=== PATIENT | female | born 1970 | race Caucasian/White ===

== ENCOUNTER 2019-12-20 09:05 | Emergency (ER) | payer SELFPAY ==
[2019-12-20 09:06] VITALS: BP 126/106; PULSE 129; RESP 28; TEMP 36.6; O2SAT 99; BMI 21.5
--- NOTE | 2019-12-20 09:24 | RAD_ITS ---
STUDY: X-RAY CHEST REASON FOR EXAM: Female, 49 years old. Cough, fever, SOB -- emphysema TECHNIQUE: Single AP portable view of the chest. COMPARISON: Comparison is made with prior study dated September 04, 2013. FINDINGS: EKG electrodes are seen. The lungs are clear and expanded. There is no demonstrated pleural abnormality. Normal size heart. Normal mediastinum and kavon. Normal visualized pulmonary arteries. Normal visualized aortic arch and descending thoracic aorta. Normal visualized thoracic spine. Normal visualized ribs, clavicles, and shoulders. There is no demonstrated abnormality of the visualized soft tissue structures of the upper abdomen. RAD/Chest 1 View (Portable) IMPRESSION: Normal x-ray examination of the chest. Electronically Signed: Hao Gee, at 10:30 EDT , Service support ,
--- NOTE | 2019-12-20 09:24 | EKG12_ITS ---
Test Reason : TACHY Blood Pressure : / mmHG Vent. Rate : 093 BPM Atrial Rate : 093 BPM P-R Int : 142 ms QRS Dur : 084 ms QT Int : 348 ms P-R-T Axes : 079 030 062 degrees QTc Int : 432 ms Normal sinus rhythm Normal ECG Confirmed by BEVERLY JONES, TARIK ([id number]), clinical editor TAZ LI ([id number] on 12/21/2019 9:46:09 AM Referred By: ILDEFONSO Confirmed By:TARIK PAUL MD
--- NOTE | 2019-12-20 09:30 | ED.DCSUM_ITS ---
History of Present Illness Chief Complaint: Shortness of Breath Informant: Patient Onset: Yesterday Timing: Continuous Narrative: Patient presents the emergency department with cough and shortness of breath. Patient works at [employer]. Daughter has tested positive for SARS-CoV-2. Patient states that yesterday she had a near syncopal event getting out of the bathtub. She developed some tightness across her lower ante rior chest and into her shoulders. Today she feels very short of breath has a dry cough. She denies any fever. She denies any palpitations. She denies any chest pain noting that is more of a tightness sensation. No vomiting or diarrhea. No rashes. No significant rhinorrhea but has had some sinus pressure. No myalgias or headache. No DVT PE risk factors. Patient recently has started to quit smoking and started Wellbutrin. She developed some lower chest tightness which she attributed to the Wellbutrin and after speaking with her doctor has been taking Wellbutrin every other day. Patient does note a history of anxiety but states this feels very different. Past Medical History - Allergies and Home Meds Allergies/Adverse Reactions: Allergies No Known Allergies Allergy (Verified 12/20/19 09:10) Primary Care Physician: Yolanda Levine DO [NON CLINICAL AFFILIATE] - As Needed Smoking Status: Current every day smoker Review of Systems General: Denies: Chills, Fever, Sweats Eyes: Denies: Visual changes - bilaterally, Diplopia ENT: Denies: Rhinorrhea, Sore throat Cardiovascular: Reports: Chest pain. Denies: Palpitations, Heart racing Respiratory: Reports: Dyspnea, Cough. Denies: Sputum, Dyspnea on exertion Gastrointestinal: Reports: Diarrhea. Denies: Abdominal pain, Nausea, Vomiting, Melena, Hematochezia Genitourinary: Denies: Dysuria, Hematuria, Frequency Musculoskeletal: Denies: Back pain, Extremity Pain Skin: Denies: Rash, Wounds Neurological: Reports: Headache. Denies: Weakness, Numbness Psych: Reports: Anxiety Physical Exam Vital Signs/Narrative: Vital Signs Temp Pulse Resp BP Pulse Ox 12/20/19 09:06 98 F 129 H 28 H 126/106 H 99 Inital Vital Signs reviewed: Yes General: Well nourished, Well developed, No Acute Distress Head: Normocephalic, Atraumatic Eyes: Perrl, EOMI ENT: Moist mucous membranes, No rhinorrhea Neck: Supple, Nontender Cardiovascular: Regular rate, Regular rhythm, No murmurs, Tachycardia Respiratory: No distress, CTA bilaterally, Chest nontender Abdomen: Soft, Nontender, Nondistended, Normal bowel sounds Back: Nontender, Normal Inspection Extremities: Nontender, No edema Skin: Normal color, No rash Neurological: Alert, Oriented x3, Cranial nerves II-XII grossly intact, Normal Strength, Normal Sensation Psychological: Normal affect, Normal Mood Diagnostic/Tx/Re-eval - EKG Initial EKG Interpretation: Sinus Rhythm - EKG shows a normal sinus rhythm at a rate of 93 without ectopy or concerning features of ACS. Baseline is altered in some leads due to the patient's body movement - Medical Decision Making Sick labs were essentially normal. Chest x-ray is negative. EKG is a sinus rhythm without concerning features of ACS. Patient is refusing a CT scan of her chest to rule out pulmonary embolism. She is doing so out of a cost issue. While I disagree with this choice she does have the capacity to make this decision. Patient is aware of the risk of going home and can tell me them back. She is feeling better I am going to provide her with a prescription for a spacer to use with her albuterol MDI. A SARS COVID-19 test was ordered and patient was swabbed. She was advised this will it may take several days to get back. In the meantime she should self quarantine. Use her inhaler. If she is worsening she may certainly return. Nursing went in to remove her IV and discharge her and the patient is now requesting her CAT scan. This was performed was negative for pulmonary embolism infiltrates effusions or dissection. Patient will be discharged home with the aforementioned plan. ED Disposition - Plan for ED Patient: Disposition: Against Medical Advice Diagnosis: Dyspnea, Chest pain Bad tableReferrals: Yolanda Levine, [NON CLINICAL AFFILIATE] - As Needed
[2019-12-20 09:43] VITALS: BP 125/80; PULSE 102; RESP 14; TEMP 36.7; O2SAT 99
[2019-12-20 09:50] LABS: Absolute Neutrophil Count 3.1 X10^3/uL (2.0-7.7); Basophil# 0.07 X10^3/uL; Basophil% 1.2 % (0-1); Eosinophils% 1.7 % (0-5); Hematocrit 40.5 % (37-47); Hemoglobin 13.9 g/dL (12.0-15.0); Lymphocyte % 36.3 % (19-41); Mean Corp Hgb Conc 34.3 g/dL (32-36); Mean Corpuscular Hgb 29.2 pg (27.0-32.0); Mean Corpuscular Volume 85.1 fL (81-99); Mean Platelet Vol. 9.2 fl (6.2-12.0); Monocyte% 6.9 % (0-10); NRBC Flagged by Analyzer 0 % (0-5); Neutrophil % 53.7 % (47-70); Platelet Count 314 K/mm3 (150-450); RBC Distribution Width CV 12.3 % (11.6-14.6); RBC Distribution Width SD 38.4 fl (35.1-43.9); Red Blood Count 4.76 M/mm3 (4.2-5.4); White Blood Count 5.8 K/mm3 (4.4-11.0)
[2019-12-20 10:06] LABS: ALB/GLOB Ratio 1.3 RATIO (0.9-2.4); AST(SGOT) 14 U/L (15-37); Alanine Aminotransfer ALT/SGPT 19 U/L (13-56); Albumin, Serum 4.4 g/dL (3.2-5.0); Alkaline Phosphatase 88 U/L (45-117); Anion Gap 6 (5-15); BUN 9 mg/dL (7-18); BUN/Creat Ratio 11.4 RATIO (10-20); Calcium,Total 9.7 mg/dL (8.5-10.1); Chloride 106 mmol/L (98-107); Creatinine, Serum 0.79 mg/dL (0.55-1.02); EST Glomerular Filtration Rate 81 mL/min (>60); Est Glom Filt Rate - Afr Amer 98 mL/min (>60); Estimated Creatinine Clearance 63.57 ml/min; Globulin 3.5 g/dL (2.2-4.2); Glucose 98 mg/dL (74-106); Potassium 3.1 mmol/L (3.5-5.1); Protein, Total 7.9 g/dL (6.4-8.2); Sodium Level 141 mmol/L (136-145)
[2019-12-20 10:11] VITALS: BP 119/80; PULSE 91; RESP 18; O2SAT 100
--- NOTE | 2019-12-20 11:16 | CT_ITS ---
STUDY: CTA CHEST REASON FOR EXAM: Female, 49 years old. FEVER, COUGH, SOB, DAUGHTER COVID + RADIATION DOSAGE (If Supplied By Facility): CTDIvol = ( 41.45 ) mGy, DLP = ( 115.49 ) mGycm TECHNIQUE: The examination was performed with the intravenous administration of IV 100mL Isovue-370. Post-processing of the angiographic images was performed, with multiplanar reformation and 3D reconstruction. Individualized dose optimization techniques were used for this CT. COMPARISON: None. FINDINGS: Normal enhancement of the main pulmonary artery and right and left pulmonary arteries. Normal enhancement of the bilateral peripheral pulmonary arteries. There is no demonstrated pulmonary embolism. Normal thoracic aorta and visualized great vessels. There is no demonstrated aortic dissection. Normal heart and pericardium. Normal mediastinum. Normal hilar regions. Normal visualized trachea and bronchi. The lungs are well expanded. Normal pulmonary parenchyma. Normal pleura. Normal chest wall structures. There are degenerative changes of thoracic spine. Normal visualized upper abdomen. CT/CTA Chest W/WO Contrast IMPRESSION: Normal CTA chest examination, without a demonstrated pulmonary embolism or arterial dissection. Electronically Signed: Hao Gee, at 12:14 EDT , Service support ,
[2019-12-20 11:47] VITALS: BP 134/77; PULSE 90; RESP 22; O2SAT 99
== END 2019-12-20 12:50 | disposition left against medical advice (07) ==
PROVIDERS: Emergency Provider Emergency Medicine; PCP Family Medicine
DX: R06.02 Shortness of breath (principal); R07.89 Other chest pain; F17.200 Nicotine dependence, unspecified, uncomplicated; Z53.29 Procedure and treatment not carried out because of patient's decision for other reasons
CPT/HCPCS: 71045; 71275; 80053; 84484; 85025; 87635; 93005; 99284; Q9967; U0004

== ENCOUNTER 2025-01-04 04:33 | Emergency (ER) | payer MEDICAID, SELFPAY ==
[2025-01-04 04:35] VITALS: BP 141/75; PULSE 96; RESP 18; TEMP 36.6; O2SAT 100; BMI 25.9
[2025-01-04 04:36] VITALS: BP 141/75; PULSE 91; RESP 18; TEMP 36.5; O2SAT 100
[2025-01-04] MEDS: 0.9% Normal Saline (1000mL) 1,000 ML 999 ML IV (04:54)
[2025-01-04 05:06] LABS: Absolute Lymphocyte Count 1.53 X10^3/uL (0.83-4.51); Absolute Neutrophil Count 5.1 X10^3/uL (2.0-7.7); Basophil# 0.09 X10^3/uL; Basophil% 1.2 % (0-1); Eosinophil# 0.15 X10^3/uL; Hematocrit 36.8 % (37-47); Hemoglobin 12.7 g/dL (12.0-15.0); Lymphocyte # 1.53 X10^3/ul (0.83-4.51); Lymphocyte % 20.6 % (19-41); Mean Corp Hgb Conc 34.5 g/dL (32-36); Mean Corpuscular Hgb 28.7 pg (27.0-32.0); Mean Corpuscular Volume 83.3 fL (81-99); Monocyte# 0.58 X10^3/uL; Monocyte% 7.8 % (0-10); NRBC Flagged by Analyzer 0 % (0-5); Neutrophil # 5.05 X10^3/uL (2.7-7.7); Neutrophil % 68.3 % (47-70); Platelet Count 331 K/mm3 (150-450); RBC Distribution Width CV 13.3 % (11.6-14.6); Red Blood Count 4.42 M/mm3 (4.2-5.4); White Blood Count 7.4 K/mm3 (4.4-11.0)
[2025-01-04 05:18] LABS: Mucous, Urine 0 SEEN /hpf (<or=2+); Red Blood Cells-Urine 0 SEEN /hpf (0-5)
[2025-01-04 05:20] LABS: Color, Urine Straw (Yellow); Glucose, Dipstick Normal (Normal); Ketone-Dipstick Negative (Negative); Leukocyte Esterase-Dipstick Negative /ul (Negative); Nitrite-Dipstick Negative (Negative); Occult Blood-Urine Negative /ul (Negative); Protein-Dipstick 15 mg/dl (Negative); Urine Bilirubin Dipstick Negative (Negative); Urine Clarity Clear (Clear); Urine Urobilinogen Normal (Normal)
[2025-01-04 05:21] LABS: Anion Gap 11 (5-15); BUN 9 mg/dL (4-19); BUN/Creat Ratio 11.8 RATIO (10-20); Calcium,Total 9.2 mg/dL (7.6-11.0); Carbon Dioxide 23.6 mmol/L (21.0-32.0); Chloride 105 mmol/L (98-108); Creatinine, Serum 0.75 mg/dL (0.70-1.20); EST Glomerular Filtration Rate 93 (>60); Estimated Creatinine Clearance 70.81 ml/min (50-250); Glucose 108 mg/dL (70-99); Magnesium 1.8 mg/dL (1.5-2.2); Potassium 3.3 mmol/L (3.3-5.1); Sodium Level 140 mmol/L (133-145)
[2025-01-04 05:30] VITALS: BP 115/68; PULSE 79; RESP 18; TEMP 36.9; O2SAT 98
[2025-01-04] MEDS: Ketorolac 30 MG/ML Syringe IV (05:56)
[2025-01-04 06:05] LABS: Bacteria 1+ /hpf (None Seen); Squamous Epithelial Cells - UA 0-5 SEEN /hpf (5-10); White Blood Cells 0-5 SEEN /hpf (0-5)
--- NOTE | 2025-01-04 06:43 | EX.ED.DYSGE1 ---
HPI History of Present Illness Chief Complaint: Diarrhea Informant: patient Narrative Narrative: Patient is a 54-year-old female who reports a past medical history of appendicitis leading to sepsis and requiring prolonged IV antibiotics in October of this year. She states following that she developed diffuse diarrhea and was diagnosed with C. difficile. She states she took her antibiotic and finished it roughly 2 to 3 weeks ago. She states her stool has been loose but has been overall improving. She denies any fevers or chills or known sick contact. She states that there is been no recent travel outside the country and she denies any livestock exposure. She reports that she went to bed normally and then awoke around 2 in the morning with abdominal cramping and had 3 bouts of watery diarrhea. She states she is concerned for a repeat C. difficile infection and therefore comes in for evaluation [facility] Home Medications ?Medication ?Instructions ?Recorded ?Last Taken ?Type inhalational spacing device ##1 12/20/19 Unknown Rx duloxetine 20 mg capsule,delayed 20 mg PO DAILY 01/04/25 Unknown History release (Cymbalta) vancomycin 125 mg capsule 125 mg PO Q6H 10 days #40 caps 01/04/25 Unknown Rx Allergy/AdvReac Type Severity Reaction Status Date / Time No Known Allergies Allergy Verified 01/04/25 04:34 Surgical History (Updated 01/04/25 @ 04:38 by Marci Waldrop) Hx of appendectomy Social History (Updated 06/15/20 @ 13:36 by Eduardo COSME, PA) Smoking Status: Current every day smoker tobacco type: cigarettes ROS ROS ED Constitutional Constitutional ED: Denies chills or fever(s) ENT ENT ED: Denies sore throat Cardiovascular Cardiovascular: Denies chest pain Respiratory/Chest Respiratory/Chest: Denies cough or dyspnea Gastrointestinal Gastrointestinal: Reports abdominal pain and diarrhea; Denies nausea or vomiting Genitourinary Genitourinary ED: Reports dysuria Musculoskeletal Musculoskeletal: Denies back pain or myalgias Integumentary Denies rash Neurologic Neurologic: Denies headache(s) Hematologic/Lymphatic Hematologic/Lymphatic: Denies easy bleeding or easy bruising EXAM Physical Exam Const Vital Signs: 01/04/25 04:35 01/04/25 04:36 01/04/25 05:30 Temperature 97.9 F 97.7 F L 98.5 F Temperature Source Oral Oral Oral Pulse Rate 96 91 79 Respiratory Rate 18 18 18 Blood Pressure 141/75 H 141/75 H 115/68 Blood Pressure Mean 97 97 83 Pulse Ox 100 100 98 Oxygen Delivery Method Room Air Room Air Room Air Positive well nourished and well developed General Appearance ED: well developed; Negative for pallor HEENT Reports moist mucous membranes HEENT Narrative: No tongue or lip swelling no oral lesions no airway edema or compromise No secondary findings in the posterior pharynx to suggest infection Eyes PERRL and EOMs intact bilaterally General Eye ED: Negative for scleral icterus Neck supple Resp normal respiratory effort and clear to auscultation bilaterally Cardio regular rate and regular rhythm GI non-distended and no masses GI Narrative: Abdomen is soft and nondistended. There is mild diffuse pain with palpation along the lower abdomen. Bowel sounds are hyperactive. There is no voluntary guarding or rigidity or pulsatile mass. No peritoneal signs Auscultation: hyperactive bowel sounds Palpation: soft Back/Spine no CVA tenderness Extremity normal to inspection Neuro oriented x3, CN's II-XII intact bilaterally and no sensory deficits noted Sensorium / Orientation: alert Motor Exam: strength 5/5 throughout Psych mental status grossly normal Skin no rashes or lesions noted and skin turgor normal General Skin Exam: Negative for jaundice or pallor MDM MDM MDM Narrative Medical decision making narrative: Patient arrived to the ER with stable vitals and a soft nonsurgical abdomen. She reported sudden onset of watery diarrhea beginning around 2 in the morning. She does not have any recent risk factors such as travel outside the country recent hospitalization or livestock exposure to suggest infectious diarrhea such as Salmonella E. coli or Shigella. With her recent history of C. difficile there is concern for repeat infection however and as she reports mild dysuria there is potential for UTI. Patient's white count is normal her neutrophil count is normal going against systemic infection. There are no signs of acute kidney injury or clinically significant electrolyte abnormality. Urine sample shows +1 bacteria but no white cells and is nitrite negative and therefore this does not correlate with an infectious process. A stool sample was obtained in the ER and at this time we will wait for the results of the C. difficile testing to decide if there is need for repeat antibiotics or if she is otherwise safe for discharge with just outpatient follow-up. The C. difficile study was positive and secondary to this she will be placed on another round of oral antibiotics. However as she does not have signs of sepsis or severe dehydration or electrolyte abnormality or acute kidney injury she does not warrant admission and is otherwise safe for discharge. History & Record Review Discussion w/independent historian: Patient Lab Data Attestation: I reviewed the patient's lab results. Labs: Laboratory Results - last 24 hr 01/04/25 01/04/25 04:58 05:11 WBC 7.4 RBC 4.42 Hgb 12.7 Hct 36.8 L MCV 83.3 MCH 28.7 MCHC 34.5 RDW Std Deviation 41.0 RDW Coeff of Ben 13.3 Plt Count 331 MPV 9.0 Immature Gran % (Auto) 0.100 Neut % (Auto) 68.3 Lymph % (Auto) 20.6 [place] % (Auto) 7.8 Eos % (Auto) 2.0 Baso % (Auto) 1.2 H Absolute Neuts (auto) 5.1 Absolute Lymphs (auto) 1.53 Nucleated RBC % 0 Sodium 140 Potassium 3.3 Chloride 105 Carbon Dioxide 23.6 Anion Gap 11 BUN 9 Creatinine 0.75 Estim Creat Clear Calc 70.81 Est GFR (MDRD) Non-Af 93 BUN/Creatinine Ratio 11.8 Glucose 108 H Calcium 9.2 Magnesium 1.8 Urine Color Straw Urine Clarity Clear Urine pH 6.0 Ur Specific Maud 1.010 Urine Protein 15 H Urine Glucose (UA) Normal Urine Ketones Negative Urine Occult Blood Negative Urine Nitrite Negative Urine Bilirubin Negative Urine Urobilinogen Normal Ur Leukocyte Esterase Negative Urine RBC 0 SEEN Urine WBC 0-5 SEEN Ur Squamous Epith Cells 0-5 SEEN Urine Bacteria 1+ Urine Mucus 0 SEEN Discharge Plan Triage Chief Complaint: Diarrhea ED Provider: Shaheed Cortes Dx/Rx/DC Orders Clinical Impression: Clostridium difficile diarrhea Instructions: C Diff Infect Prescriptions: New vancomycin 125 mg capsule 125 mg PO Q6H 10 Days Qty: 40 0RF No Action (DME) inhalational spacing device 1 EACH spacer 1 ea MC Q4H Qty: 1 0RF Rx Instructions: Use with albuterol MDI duloxetine [Cymbalta] 20 mg capsule,delayed release(DR/EC) 20 mg PO DAILY Stand Alone Forms: ED Work / School Excuse Primary Care Provider: Teresa Brown Referrals: Teresa Brown, BULK SEALER OPERATOR-C [Primary Care Provider] - Print Language: Honduran Disposition Disposition: Home, Self Care
[2025-01-04 07:14] VITALS: BP 122/78; PULSE 69; RESP 16; TEMP 36.7; O2SAT 99
[2025-01-04] MEDS: Vancomycin 125 MG/5 ML Susp PO.SYRINGE PO (07:34)
== END 2025-01-04 07:35 | disposition home or self-care (01) ==
PROVIDERS: Emergency Provider Emergency Medicine; PCP Nurse Practitioner Family; Visit Provider Emergency Medicine
DX: A04.72 Enterocolitis due to Clostridium difficile, not specified as recurrent (principal); F17.210 Nicotine dependence, cigarettes, uncomplicated; Z79.899 Other long term (current) drug therapy
CPT/HCPCS: 80048; 81001; 83630; 83735; 85025; 87177; 87209; 87493; 87506; 96361; 96374; 99283; A4216

== ENCOUNTER 2025-01-15 08:32 | Emergency (ER) | payer MEDICAID, SELFPAY ==
[2025-01-15 08:32] VITALS: BP 140/75; PULSE 108; RESP 16; TEMP 37; O2SAT 99; BMI 24.8
--- NOTE | 2025-01-15 08:46 | ED.VIS.GI ---
HPI HPI - GI History of Present Illness Chief Complaint: Diarrhea Detail of Chief Complaint: Diarrhea Informant: patient Narrative Narrative: Patient presents with complaint diarrhea that started out a month ago. Patient states that in October of this year she had a appendectomy and had complications related to that and developed subsequently an abscess. She was admitted and was on multiple antibiotics. A month ago she developed diarrhea and tested positive for C. difficile. She was started on vancomycin. On January 04 she was seen in our emergency department and tested positive for C. difficile again and was started on vancomycin again so therefore this is her second round of oral vancomycin. She continues to have diarrhea up to 3 episodes a day. She denies any abdominal pain. She has had no fever. 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 PFSH [facility] Home Medications ?Medication ?Instructions ?Recorded ?Last Taken ?Type inhalational spacing device ##1 12/20/19 Unknown Rx duloxetine 20 mg capsule,delayed 20 mg PO DAILY 01/04/25 01/15/25 History release (Cymbalta) vancomycin 125 mg capsule 125 mg PO Q6H 10 days #40 caps 01/04/25 01/15/25 Rx Lactobacillus acidophilus 10 10,000 mmu cells PO DAILY 01/15/25 01/15/25 History billion cell capsule (NewFlora) fidaxomicin 200 mg tablet (Dificid) 200 mg PO BID 10 days #20 tabs 01/15/25 Unknown Rx multivitamin (Daily Multi-Vitamin 1 tab PO DAILY 01/15/25 01/15/25 History tablet) Allergy/AdvReac Type Severity Reaction Status Date / Time No Known Allergies Allergy Verified 01/15/25 08:32 Surgical History Hx of appendectomy Social History (Updated 06/15/20 @ 13:36 by Eduardo COSME, PA) Smoking Status: Current every day smoker tobacco type: cigarettes ROS ROS ED Review of Systems ROS Unobtainable: other Constitutional Constitutional ED: Reports lethargy; Denies chills, fever(s), sweats or weight loss Eyes Eyes: Denies blurry vision, change in vision or diplopia ENT ENT ED: Denies rhinorrhea or sore throat Cardiovascular Cardiovascular: Denies chest pain, orthopnea or racing heartbeat Respiratory/Chest Respiratory/Chest: Denies cough, dyspnea, dyspnea on exertion, orthopnea or sputum Gastrointestinal Gastrointestinal: Reports diarrhea; Denies abdominal pain, nausea or vomiting Genitourinary Genitourinary ED: Denies dysuria, hematuria or urinary frequency Musculoskeletal Musculoskeletal: Denies arthralgias, back pain, myalgias or neck pain Integumentary Denies abscess, Abrasions or rash Neurologic Neurologic: Denies headache(s) or weakness Psychiatric Psychiatric: Denies anxiety, depression or suicidal thoughts Endocrine Endocrinology: Denies polydipsia, polyphagia or polyuria Hematologic/Lymphatic Hematologic/Lymphatic: Denies easy bleeding, easy bruising or lymphadenopathy Allergic/Immunologic Allergic/Immunologic ED: Denies mouth swelling, tongue swelling or urticaria EXAM Physical Exam Const Vital Signs: 01/15/25 08:32 01/15/25 09:31 01/15/25 10:32 Temperature 98.6 F 98.6 F 97.9 F Temperature Source Oral Oral Oral Pulse Rate 108 H 108 H 81 Respiratory Rate 16 16 17 Blood Pressure 140/75 H 140/75 H 103/47 L Blood Pressure Mean 96 96 65 Pulse Ox 99 99 100 Oxygen Delivery Method Room Air Room Air Room Air Positive well nourished and well developed General Appearance ED: well developed and NAD HEENT Reports TM's clear and moist mucous membranes normocephalic and atraumatic; Negative for trauma or tenderness Tympanic Membrane ED: Yes TM's clear Eyes PERRL and EOMs intact bilaterally General Eye ED: Negative for pale conjunctiva or scleral icterus Neck no lymphadenopathy, supple and no JVD General: Negative for tenderness Chest Wall inspection of chest normal and palpation of chest normal Chest: Negative for tenderness Resp normal respiratory effort and clear to auscultation bilaterally Effort and Inspection: Negative for respiratory distress or pain with movement Auscultation: Negative for rhonchi, wheezes or diminished lung sounds Cardio regular rhythm, S1 normal heart sound, S2 normal heart sound and no murmurs Rate: tachycardic Peripheral Pulses: pulses 2+ throughout GI normal to inspection, nondistended, normoactive bowel sounds, soft to palpation, non-tender, non-distended and no masses Back/Spine no CVA tenderness and no thoracic nor lumbar tenderness Extremity normal to inspection General Extremety ED: Negative for edema General Extremity: Negative for edema Neuro oriented x3, CN's II-XII intact bilaterally, no sensory deficits noted and gait normal Sensorium / Orientation: awake, alert, oriented to person, oriented to place and oriented to time Motor Exam: strength 5/5 throughout and strength abnormal Psych mental status grossly normal Skin no rashes or lesions noted and no wounds MDM MDM MDM Narrative Medical decision making narrative: Patient presents with ongoing diarrhea recently positive for C. difficile. IV established. CBC with differential obtained showing a 7.0 with hemoglobin 13.5 and platelet count 391. Chemistries unremarkable. Ordered stool for C. difficile again however she was unable to give a sample. I did discuss case with infectious disease on-call Dr. Veliz who recommended Dificid 200 mg twice daily for 10 days. Will refer for outpatient follow-up to their office. Lab Data Attestation: I reviewed the patient's lab results. Labs: Laboratory Results - last 24 hr 01/15/25 09:00 WBC 7.0 RBC 4.70 Hgb 13.5 Hct 39.5 MCV 84.0 MCH 28.7 MCHC 34.2 RDW Std Deviation 41.6 RDW Coeff of Ben 13.4 Plt Count 391 MPV 9.3 Immature Gran % (Auto) 0.300 Neut % (Auto) 64.0 Lymph % (Auto) 25.6 [place] % (Auto) 7.0 Eos % (Auto) 2.0 Baso % (Auto) 1.1 H Absolute Neuts (auto) 4.5 Absolute Lymphs (auto) 1.80 Nucleated RBC % 0 Sodium 140 Potassium 3.3 Chloride 102 Carbon Dioxide 25.9 Anion Gap 13 BUN 7 Creatinine 0.69 L Estim Creat Clear Calc 75.56 Est GFR (MDRD) Non-Af 102 BUN/Creatinine Ratio 10.5 Glucose 99 Lactic Acid 1.4 Calcium 9.7 Discharge Plan Triage Chief Complaint: Diarrhea ED Provider: Naomy Torrez Dx/Rx/DC Orders Clinical Impression: Diarrhea, C. difficile colitis Instructions: C diff, What Is C. Diff? Prescriptions: New Dificid 200 mg tablet 200 mg PO BID 10 Days Qty: 20 0RF No Action (DME) inhalational spacing device 1 EACH spacer 1 ea MC Q4H Qty: 1 0RF Rx Instructions: Use with albuterol MDI duloxetine [Cymbalta] 20 mg capsule,delayed release(DR/EC) 20 mg PO DAILY vancomycin 125 mg capsule 125 mg PO Q6H 10 Days Qty: 40 0RF Patient Comments: PT HAS 6 TABS LEFT. multivitamin [Daily Multi-Vitamin] Tablet 1 tab PO DAILY NewFlora 10 billion cell capsule 10,000 mmu cells PO DAILY Primary Care Provider: Teresa Brown Referrals: Thien Veliz MD [Med Staff - Active Staff] - 5-7 Days Teresa Brown, BLOCK SPLITTER OPERATOR-C [Primary Care Provider] - Print Language: Nigerien Disposition Disposition: Home, Self Care
[2025-01-15] MEDS: 0.9% Normal Saline (1000mL) 1,000 ML 999 ML IV (08:55)
[2025-01-15 09:14] LABS: Absolute Neutrophil Count 4.5 X10^3/uL (2.0-7.7); Basophil# 0.08 X10^3/uL; Basophil% 1.1 % (0-1); Eosinophil# 0.14 X10^3/uL; Hematocrit 39.5 % (37-47); Hemoglobin 13.5 g/dL (12.0-15.0); Lymphocyte % 25.6 % (19-41); Mean Corp Hgb Conc 34.2 g/dL (32-36); Mean Corpuscular Hgb 28.7 pg (27.0-32.0); Mean Platelet Vol. 9.3 fl (6.2-12.0); Monocyte# 0.49 X10^3/uL; NRBC Flagged by Analyzer 0 % (0-5); Platelet Count 391 K/mm3 (150-450); RBC Distribution Width CV 13.4 % (11.6-14.6); RBC Distribution Width SD 41.6 fl (35.1-43.9)
[2025-01-15 09:31] VITALS: BP 140/75; PULSE 108; RESP 16; TEMP 37; O2SAT 99
[2025-01-15 09:52] LABS: Lactic Acid 1.4 mmol/L (0.0-2.0)
[2025-01-15 09:54] LABS: Anion Gap 13 (5-15); BUN 7 mg/dL (4-19); BUN/Creat Ratio 10.5 RATIO (10-20); Calcium,Total 9.7 mg/dL (7.6-11.0); Carbon Dioxide 25.9 mmol/L (21.0-32.0); Chloride 102 mmol/L (98-108); Creatinine, Serum 0.69 mg/dL (0.70-1.20); EST Glomerular Filtration Rate 102 (>60); Estimated Creatinine Clearance 75.56 ml/min (50-250); Glucose 99 mg/dL (70-99); Potassium 3.3 mmol/L (3.3-5.1); Sodium Level 140 mmol/L (133-145)
[2025-01-15 10:32] VITALS: BP 103/47; PULSE 81; RESP 17; TEMP 36.6; O2SAT 100
[2025-01-15 11:47] VITALS: BP 101/60; PULSE 74; RESP 16; TEMP 36.6; O2SAT 100
== END 2025-01-15 11:48 | disposition home or self-care (01) ==
PROVIDERS: Emergency Provider Emergency Medicine; PCP Nurse Practitioner Family; Visit Provider Emergency Medicine
DX: A04.72 Enterocolitis due to Clostridium difficile, not specified as recurrent (principal); F17.210 Nicotine dependence, cigarettes, uncomplicated
CPT/HCPCS: 80048; 83605; 85025; 99283; A4216

== ENCOUNTER 2025-03-21 03:48 | Emergency (ER) | payer MEDICAID, SELFPAY ==
[2025-03-21 03:48] VITALS: BP 151/84; PULSE 92; RESP 16; TEMP 36.6; O2SAT 100; BMI 24.9
--- NOTE | 2025-03-21 04:02 | EX.ED.DYSGE1 ---
HPI History of Present Illness Chief Complaint: Dental Narrative Narrative: Patient is a 54-year-old female with past medical history anxiety who presents to the emergency department the chief complaint of dental pain. States that on this past week she had 11 teeth pulled and notes that she has had pain and swelling along her lower jawline since then. She states that it has been persistent and she was concerned that she may have infection therefore she came here for further evaluation management. Patient states that she did not call her dentist that pulled her teeth. Patient denies any fevers denies difficulty swallowing PFSH PFS Medical History Anxiety Home Medications ?Medication ?Instructions ?Recorded ?Last Taken ?Type duloxetine 20 mg capsule,delayed 20 mg PO DAILY 01/04/25 01/15/25 History release (Cymbalta) clindamycin HCl 300 mg capsule 300 mg PO TID 5 days #15 caps 03/21/25 Unknown Rx (Cleocin HCl) Allergy/AdvReac Type Severity Reaction Status Date / Time No Known Allergies Allergy Verified 03/21/25 03:52 Surgical History History of dental surgery Hx of appendectomy Social History Smoking Status: Current every day smoker tobacco type: cigarettes ROS ROS ED ROS Narrative Constitutional: Denies any fevers or chills Eyes, ears, nose, throat: Complains of dental pain as noted above denies any difficulty swallowing Neurological: Denies numbness, wheeze, tingling Skin: Denies rashes or lesions EXAM Physical Exam Narrative Exam Narrative: General: Patient lying in bed rest comfortably did not appear to be acute distress Head: Atraumatic, normocephalic Eyes, ears, nose, throat: PERRL bilaterally, EOMI by, no conjunctival injection noted, no sublingual swelling noted, patient does have some swelling noted where her teeth were removed however no drainable abscesses noted Neck: No concern for Chicho's angina, soft, supple, trachea midline Cardiovascular: Regular rate and rhythm Neurological: Patient follow commands and that she was at [facility] years 2024 Skin: Warm, dry, tact no rashes or lesions noted Const Vital Signs: 03/21/25 03:48 Temperature 97.8 F Temperature Source Temporal Pulse Rate 92 Respiratory Rate 16 Blood Pressure 151/84 H Blood Pressure Mean 106 Pulse Ox 100 MDM MDM MDM Narrative Medical decision making narrative: Patient is a 54-year-old female who presented to the emerged part with a chief complaint of dental pain after having 11 teeth removed last . On the differential diagnosis includes but not limited to abscess however have low suspicion for this clinically as noted above, dry socket, dental caries. Patient will be placed on clindamycin and she is advised that she needs to call her doctor for follow-up today. She was encouraged to return with worsening symptoms any concerns. She like to go home concerns answered she was discharged home in stable condition. Discharge Plan Triage Chief Complaint: Dental ED Provider: Bruce Ramos Dx/Rx/DC Orders Clinical Impression: Pain, dental, Tobacco use Prescriptions: New clindamycin HCl [Cleocin HCl] 300 mg capsule 300 mg PO TID 5 Days Qty: 15 0RF No Action duloxetine [Cymbalta] 20 mg capsule,delayed release(DR/EC) 20 mg PO DAILY Primary Care Provider: Teresa Brown Referrals: Teresa Brown, [facility] [Primary Care Provider] - Activity Restrictions/Additional Instructions: Take antibiotics as prescribed. Follow-up with the dentist that removed your teeth. Return with worsening symptoms or any other concerns. Print Language: Taiwanese Disposition Disposition: Home, Self Care
--- OUTSIDE RECORDS SUMMARY | 2025-03-21 04:21 | XMS RPT_ITS | CCD ---
Author Organization [facility] Care Team Providers Care Electronic Development Technician Name Role Phone Anmol Chen MD Primary Care Provider Anmol Chen MD Primary Care Provider Kevin MEDICAL ADMINISTRATOR.Elena AL Unavailable Qian Somers PA-C Unavailable Guillermo Monique MD Unavailable Denzel MEDICAL ADMINISTRATOR.SERVANDO, Kandy Unavailable Anmol Chen MD Unavailable Sean Clemens RN Unavailable Provider Charleen JONES Unavailable Unavailable ANMOL CHEN Primary Care Unavailable KUSHAL BOSCH Attending Unavailable NELY ARTHUR Referring Unavaila CHIKA Garcia Admitting Unavailable ANMOL CHEN Primary Care Unavailable GISSELLE LABOY Attending Unavailable GUILLERMO MONIQUE Consulting Unavailable GISSELLE LABOY Admitting Unavailable MIGUE SUAZO Referring Unavailable ANMOL CHEN Primary Care Unavailable ANMOL CHEN Primary Care Unavailable ANMOL CHEN Primary Care Unavailable ADRIAN WISE Attending Unavailable ANMOL CHEN Primary Care Unavailable Anmol Chen MD Primary Care Provider Dr. Anmol Chen MD Primary Care Provider Dr. Anmol Chen MD Referring Provider Damian Ramos Attending Provider Kevin BECERRACElena Primary Care Provider Dr. Shaheed Cortes DO Emergency Provider [phone] Dr. Shaheed Cortes DO Attending Provider Lore HAMMONDS, Dr. Moralez Emergency Provider Ungjerson DO, Dr. Moralez Attending Provider Kevin CUNN[place]-CElena Referring Provider Knoble MEDICAL ADMINISTRATOR.CURING PRESS OPERATOR, Elena Unavailable Qian Somers PA-C Unavailable Knoble, Elena Primary Care Unavailable Naomy Torrez Attending Unavailable Gustavo, Anmol Primary Care Unavailable Damian Quinteros Attending Unavailable Gustavo, Anmol Referring Unavailable Knoble, Elena Primary Care Unavailable Shaheed Cortes Attending Unavailable Knoble, Elena Referring Unavailable Knoble, Elena Primary Care Unavailable Damian Quinteros Attending Unavailable Knoble, Elena Referring Unavailable Knoble, Elena Primary Care Unavailable Luda Brown Attending Unavailable Raphael Chen MDrey A Primary Care Provider Knoble MEDICAL ADMINISTRATOR.CURING PRESS OPERATOR, Elena Unavailable Qian Somers PA-C Unavailable Sean Clemens RN Unavailable JULIENOBLEELENA Attending Unavailable GUSTAVO, ANMOL A Primary Care Unavailable SELF Referring Unavailable KNOBLE, ELENA Referring Unavailable GUSTAVO, ANMOL A Primary Care Unavailable KNOBLE, ELENA Attending Unavailable SELF Referring Unavailable GUSTAVO, ANMOL A Primary Care Unavailable KNOBLE, ELENA Referring Unavailable GUSTAVO, ANMOL A Primary Care Unavailable KNOBLE, ELENA Referring Unavailable GUSTAVO, ANMOL A Primary Care Unavailable GUSTAVO, ANMOL A Primary Care Unavailable NELY SCHMIDT Attending Unavailable KNOBLE, ELENA Attending Unavailable GUSTAVO, ANMOL A Primary Care Unavailable KUSHAL BOSCH Attending Unavailable GUSTAVO, ANMOL A Primary Care Unavailable KUSHAL BOSCH Referring Unavailable GUSTAVO, ANMOL A Primary Care Unavailable KUSHAL BOSCH Referring Unavailable GUSTAVO, ANMOL A Primary Care Unavailable KNOBLE, ELENA Referring Unavailable GUSTAVO, ANMOL A Primary Care Unavailable QIAN SOMERS Attending Unavailable QIAN SOMERS Referring Unavailable GUSTAVO, ANMOL A Primary Care Unavailable GUSTAVO, ANMOL A Primary Care Unavailable GUSTAVO, ANMOL A Primary Care Unavailable KUSHAL BOSCH Referring Unavailable ANMOL CHEN Primary Care Unavailable ELENA ISBELL Attending Unavailable KUSHAL BOSCH Referring Unavailable ANMOL CHEN Primary Care Unavailable ELENA ISBELL Referring Unavailable ANMOL CHEN Primary Care Unavailable ANMOL CHEN Primary Care Unavailable Dr. Bruce Ramos DO Emergency Provider Allergies Allergy Classification Reported Allergen(s) Allergy Type Date of Onset Reaction(s) Facility Aminoketones (1 source) buPROPion Drug Allergy 12-19-2019 Other: See Comments [facility] Serotonin Reuptake Inhibitors (SSRIs) (1 source) FLUoxetine Drug Allergy 06-11-2015 Other: See Comments [facility] Work Phone: (20 sources) buPROPion; Translations: [BUPROPION HCL] Drug Allergy 12-19-2019 Other: See Comments [facility] Work Phone: (20 sources) FLUoxetine; Translations: [FLUOXETINE HCL] Drug Allergy 06-11-2015 Other: See Comments [facility] Work Phone: Medications Current Medications Medication Drug Class(es) Dates Sig (Normalized) Sig (Original) acetaminophen 500 mg oral tablet (20 sources) Start: 10-27-2024 take 2 tablets by mouth every six hours acetaminophen (TYLENOL) 500 mg tablet Take 2 tablets by mouth every 6 hours. 10/27/2024 Active [id number] 200 actuat albuterol 0.09 mg/actuat metered dose inhaler (20 sources) beta2-Adrenergic Agonist Start: 09-03-2023 take 2 puff(s) by inhalation every four hours as needed for wheezing albuterol HFA (PROVENTIL HFA, VENTOLIN HFA) 90 mcg/actuation inhaler Indications: Pulmonary emphysema, unspecified emphysema type (HCC) Inhale 2 Puffs as instructed every 4 hours as needed for wheezing/shortness of breath. 6.7 g 09/03/2023 Active Start: 03-23-2023 take 2 puff(s) by in halation every four hours as needed for wheezing albuterol HFA (PROVENTIL HFA, VENTOLIN HFA) 90 mcg/actuation inhaler Inhale 2 Puffs as instructed every 4 hours as needed for wheezing/shortness of breath. 6.7 g 0 03/23/2023 Active Start: 12-20-2019 End: 01-04-2025 Albuterol Sulfate 1 PUFF inh aler Discontinued 2 NMA IH EVERY 4 HOURS NEEDED as needed for Sob &/Or Wheezing December 20, 2019 12:00am January 04, 2025 4:37am Start: 11-14-2019 End: 01-24-2022 take 2 puff(s) by inhalation every four hours as needed albuterol HFA (PROVENTIL HFA, VENTOLIN HFA) 90 mcg/actuation inhaler Inhale 2 Puffs as instructed every 4 hours as needed. 1 Inhaler 0 11/14/2019 01/24/2022 Discontinued Comment on above: Inhale 2 Puffs as in structed every 4 hours as needed. Inhale 2 Puffs as in structed every 4 hours as needed for wheezing/shortness of breath. amoxicillin 500 mg oral capsule (3 sources) Penicillin-class Antibacterial Start: take 1 capsule by mouth three times daily amoxicillin (AMOXIL) 500 mg capsule Take 500 mg by mouth three times a day. 03/07/2025 Active Start: 01-01-2023 End: 01-11-2023 take 1 capsule by mouth twice daily amoxicillin (AMOXIL) 500 mg capsule Take 1 capsule by mouth twice daily for 10 days. 20 capsule 0 01/01/2023 01/11/2023 Active Comment on above: Take [address] [facility] twice daily for 10 days. amoxicillin 875 mg / clavulanate 125 mg oral tablet (4 sources) Penicillin-class Antibacterial Start: End: take 1 tablet by mouth every twelve hours amoxicillin-clavul anate potassium (AUGMENTIN) 875-125 mg per tablet Take 1 tablet by mouth every 12 hours for 7 days. 14 tablet 03/10/2025 03/17/2025 Active Start: 10-27-2024 End: 11-01-2024 take 1 tablet by mouth three times daily amoxicillin-clavulanate potassium (AUGMENTIN) 500-125 mg per tablet Take 1 tablet by mouth three times a day for 5 days. 15 tablet 10/27/2024 11/01/2024 Active clindamycin 300 mg oral capsule (1 source) Lincosamide Antibacterial Start: 03-21-2025 take 1 capsule by mouth three times daily Clindamycin Hcl (Cleocin Hcl) 300 mg capsule Active 300 mg PO THREE TIMES A DAY 15 5 0 March 21, 2025 12:00am diphenhydrAMINE hydrochloride 50 mg oral tablet (20 sources) Histamine-1 Receptor Antagonist Start: 11-16-2024 take 1 tablet by mouth every twelve hours diphenhydrAMINE HCL (BENADRYL ALLERGY) 50 mg tablet Take 50 mg by mouth every 12 hours. take before every Vancomycin dose 11/16/2024 Active Start: 11-15-2024 End: 11-15-2024 50 mg, INTRAVENOUS, NEEDE D, 1 dose, Starting on Thu11/15/24 at 1238, Until Thu11/15/24 at 1331, Administer per hypersensitivity/anaphylaxis grading in nursing communication doxycycline hyclate 100 mg oral tablet (2 sources) Tetracycline-class Drug Start: 08-26-2024 End: 09-02-2024 take 1 tablet by mouth twice daily doxycycline (VIBRA-TABS) 100 mg tablet Take 1 tablet by mouth two times a day for 7 days. 14 tablet 08/26/2024 09/02/2024 Active Start: 11-16-2023 End: 11-23-2023 take 1 tablet by mouth twice daily doxycycline (VIBRA-TABS) 100 mg tablet Indications: Sinobronchitis Take 1 tablet by mouth two times a day for 7 days. 14 tablet 0 11/16/2023 11/23/2023 Active Comment on above: Take 1 tablet by [facility] two times a day for 7 days. DULoxetine 30 mg delayed release oral capsule (20 sources) Serotonin and Norepinephrine Reuptake Inhibitor Start: take 1 capsule by mouth once daily DULoxetine (CYMBALTA) 30 mg capsule Indications: KELSI (generalized anxiety disorder) , Depression, unspecified depression type Take 1 capsule by mouth once daily. 60 capsule 01/19/2025 Active Start: 11-24-2024 End: 01-19-2025 take 1 capsule by mouth once daily Duloxetine (Cymbalta) 20 mg capsule,delayed release(DR/EC) Active 20 mg PO DAILY January 04, 2025 12:00am enteric contrast (will be provided with radiology test) (3 sources) Start: 12-01-2024 End: 12-02-2024 enteric contrast (will be provided with radiology test) Indications: Infection in abdomen (HCC) For CT ABD/PEL W IVCON Routine order Administer, As Directed One Time Only, via Oral, Rectal, both Oral and Rectal, Enteric Tube, Stoma or Indwelling Catheter, Enteric Contrast as designated per enteric contrast guidelines 1 each 12/01/2024 12/02/2024 Active Start: 11-17-2024 End: 11-17-2024 take 1 dose by mouth once, then take 1 dose by mouth once enteric contrast (will be provided with radiology test) Take 1 Each by mouth one time only for [address] ABD/PEL WO Routine order Administer, As Directed One Time Only, via Oral, Rectal, both Oral and Rectal, Enteric Tube, Stoma or Indwelling Catheter, Enteric Contrast as designated per enteric contrast guidelines 1 Each 11/17/2024 11/17/2024 ergocalciferol 1.25 mg oral capsule (8 sources) Provitamin D2 Compound Start: 12-06-2024 take 1 capsule by mouth every week ergocalciferol 50,000 unit capsule (VITAMIN D2, DRISDOL) Indications: Vitamin D deficiency Take 1 capsule by mouth one time a week. Use as directed. 12 capsule 12/06/2024 Active fidaxomicin 200 mg oral tablet (8 sources) Macrolide Antibacterial Start: 01-15-2025 take 1 tablet by mouth every twelve hours DIFICID 200 mg tablet Indications: C. difficile diarrhea Take 1 tablet by mouth every 12 hours. 01/15/2025 Active Start: 01-15-2025 End: 03-21-2025 take 1 tablet by mouth twice daily Fidaxomicin (Dificid) 200 mg tablet Discontinued 200 mg PO TWICE A DAY 20 10 0 January 15, 2025 12:00am March 21, 2025 3:52am fluconazole 150 mg oral tablet (1 source) Azole Antifungal Start: 11-30-2024 End: 11-30-2024 fluconazole (DIFLUCAN) 150 mg tablet Take 1 tablet by mouth one time only for 1 dose. Repeat in 3 days as needed. 3 tablet 11/30/2024 11/30/2024 Active iv contrast (will be provided with radiology test) (3 sources) Start: 12-01-2024 End: 12-02-2024 iv contrast (will be provided with radiology test) Indications: Infection in abdomen (HCC) CT ABD/PEL -Inject, intravenously, once for 1 dose.No IV access, insert saline lock prior to the beginning of sedation, infusion, injection of imaging exam. Discontinue saline lock post exam. If Pt. has a central line or IVAD, may access for administration according to line specific nursing protocol. Once exam is complete flush line and de-access according to line specific nursing protocol in the CT contrast administration guidelines link. 1 each 12/01/2024 12/02/2024 Active Start: 11-11-2024 End: 11-12-2024 iv contrast (will be provide d with radiology test) CT ABD/PEL -Inject, intravenously, once for 1 dose.No IV access, insert saline lock prior to the beginning of sedation, infusion, injection of imaging exam. Discontinue saline lock post exam. If Pt. has a central line or IVAD, may access for administration according to line specific nursing protocol. Once exam is complete flush line and de-access according to line specific nursing protocol in the CT contrast administration guidelines link. 1 Each 11/11/2024 11/12/2024 Active meropenem 1 g in NaCl 0.9% 100 mL (MERREM) (13 sources) Start: 11-16-2024 End: 11-30-2024 meropenem 1 g in NaCl 0.9% 100 mL (MERREM) Indications: Postoperative intra-abdominal abscess (HCC) Inject 1 g intravenously every 8 hours for 14 days. First Dose on 11/15/24 @ [facility] Labs: CBC/DIFF, Creat, LFTs, Pre-dose Vancomycin level qMonday. Tentative stop 11/29/24 4200 mL 11/16/2024 11/30/2024 Active oxyCODONE hydrochloride 5 mg oral tablet (16 sources) Opioid Agonist Start: 10-27-2024 End: 11-07-2024 take 1 tablet by mouth every six hours as needed for pain oxyCODONE IR (ROXICODONE) 5 mg immediate release tablet Indications: S/P laparoscopic appendectomy , Acute appendicitis with perforation, localized peritonitis, and gangrene, unspecified whether abscess present Take 1 tablet by mouth every 6 hours as needed for pain for up to 5 days. 10 tablet 11/02/2024 11/07/2024 Active predniSONE 10 mg oral tablet (3 sources) Start: 08-26-2024 End: 08-31-2024 take 4 tablets by mouth once daily predniSONE (DELTASONE) 10 mg tablet Take 4 tablets by mouth once daily for 5 days. 20 tablet 08/26/2024 08/31/2024 Active Start: 11-16-2023 End: 11-25-2023 predniSONE (DELTASONE) 10 mg tablet Indications: Sinobronchitis Take 4 tabs daily for 3 days, then 2 tabs daily for 3 days, then 1 tab daily for 3 days with food. 21 tablet 0 11/16/2023 11/25/2023 Active Start: 03-23-2023 End: 03-27-2023 take 2 tablets by mouth once daily at mealtime predniSONE (DELTASONE) 20 mg tablet Take 2 tablets by mouth once daily for 4 days. Take daily with food. 8 tablet 0 03/23/2023 03/27/2023 Active Comment on above: Take 2 tablets by mo uth once daily for 4 days. Take daily with food. Take 4 tabs daily fo r 3 days, then 2 tabs daily for 3 days, then 1 tab daily for 3 days with food. Completed/Discontinued Medications Medication Drug Class(es) Dates Sig (Normalized) Sig (Original) 24 hr buPROPion hydrochloride 150 mg extended release oral tablet (4 sources) Aminoketone Start: 12-20-2019 End: 01-04-2025 take 1 tablet by mouth once daily Bupropion Hcl 150 MG tablet extended release 24 hr Discontinued 150 mg PO DAILY December 20, 2019 12:00am January 04, 2025 4:37am busPIRone hydrochloride 7.5 mg oral tablet (13 sources) Start: 11-24-2024 End: 01-19-2025 take 1 tablet by mouth three times daily busPIRone (BUSPAR) 7.5 mg tablet Indications: KELSI (generalized anxiety disorder) Take 1 tablet by mouth three times a day. 120 tablet 11/24/2024 01/19/2025 Discontinued cholecalciferol 1.25 mg oral capsule (9 sources) Vitamin D Start: 01-13-2024 End: 08-26-2024 take 1 capsule by mouth every week cholecalciferol, Vitamin D3, (VITAMIN D3) 1,250 mcg (50,000 unit) cap capsule Take 1 capsule by mouth one time a week. 8 capsule 01/13/2024 08/26/2024 Discontinued (Course of therapy completed) ertapenem (16 sources) Penem Antibacterial Start: 11-05-2024 End: 11-05-2024 1 g, INTRAVENOUS, DAILY, 1 dose, First dose on 11/05/24 at 1300 Start: 11-03-2024 inject 1 g intraveno usly once daily ertapenem sodium (ERTAPENEM INTRAVENOUS) Inject 1 g intravenously once daily. 11/03/2024 Active Start: 11-03-2024 End: 11-03-2024 1 g, INTRAVENOUS, DAILY, 1 d ose, First dose on Lucila 11/03/24 at 1300 escitalopram 10 mg oral tablet (20 sources) Serotonin Reuptake Inhibitor Start: 03-14-2024 End: 03-28-2024 take 1 tablet by mouth once daily escitalopram oxalate (LEXAPRO) 10 mg tablet Take 1 tablet by mouth once daily. 30 tablet 1 03/14/2024 03/28/2024 Discontinued (Side Effects) Start: 11-15-2021 End: 01-12-2024 take 1 tablet by mouth once daily escitalopram oxalate (LEXAPRO) 10 mg tablet Take 1 tablet by mouth once daily. 30 tablet 5 01/24/2022 01/12/2024 Discontinued Comment on above: Take 1 tablet by ruth th once daily. fluticasone propionate 0.05 mg/actuat metered dose nasal spray (17 sources) Corticosteroid Start: 023 End: 024 take 2 spray(s) by mouth once daily fluticasone (FLONASE) 50 mcg/actuation nasal spray Use 2 Sprays in each nostril once daily. Rinse mouth after use. 9.9 mL 12/21/2022 08/26/2024 Discontinued (Course of therapy completed) Comment on above: Use 2 Sprays in each nostril once daily. Rinse mouth after use. Inhalational Spacing Device 1 EACH spacer (4 sources) Start: 020 End: 025 take 1 dose by inhalation every four hours Inhalational Spacing Device 1 EACH spacer Discontinued 1 [facility] Q4H 1 December 20, 2019 12:00am March 21, 2025 3:53am Use with albuterol MDI Start: 12-20-2019 take 1 dose by inhal ation every four hours Inhalational Spacing Device 1 EACH spacer Active 1 [facility] Q4H December 20, 2019 12:00am Use with albuterol MDI 2 ml ketorolac tromethamine 30 mg/ml injection (2 sources) Nonsteroidal Anti-inflammatory Drug, Cyclooxygenase Inhibitor Start: 03-10-2025 End: 03-10-2025 keTORolac 60 mg injection (Toradol) Start: 03-10-2025 End: 03-10-2025 60 mg, INTRAMUSCULAR, ONCE, 1 dose, On Thu03/10/25 at 1130, Ketorolac (Toradol) is indicated for the short-term (up to 5 days) management of moderately severe acute pain. Continuation of ketorolac (Toradol) beyond 5 days increases the risk of developing serious adverse events. Please verify the duration of therapy for ketorolac (Toradol). lactobacillus acidophilus [id number] unt oral capsule (3 sources) Start: 01-15-2025 End: 03-21-2025 take 10 capsules by mouth once daily Lactobacillus Acidophilus (Newflora) 10 billion cell capsule Discontinued [id number] NMA PO DAILY January 15, 2025 12:00am March 21, 2025 3:52am meloxicam 15 mg oral tablet (5 sources) Nonsteroidal Anti-inflammatory Drug Start: 03-14-2024 End: 08-26-2024 take 1 tablet by mouth once daily at mealtime meloxicam (MOBIC) 15 mg tablet Take 1 tablet by mouth once daily. With food. 30 tablet 03/14/2024 08/26/2024 Discontinued (Course of therapy completed) meropenem 1000 mg injection (20 sources) Penem Antibacterial Start: 11-15-2024 End: 01-19-2025 inject 1 g intravenously every eight hours, then inject 1 g intravenously every eight hours meropenem (MERREM) 1 gram injection Inject 1 g intravenously every 8 hours. Meropenem 1gm IV every 8 hours x 2 weeks Infuse over 30 minutes via [facility] Pharm[facility] to mix as minibag plus in 100mL NS 11/15/2024 01/19/2025 Discontinued Start: 11-15-2024 inject 1 g intraveno usly every eight hours, then inject 1 g intravenously every eight hours meropenem (MERREM) 1 gram injection Inject 1 g intravenously every 8 hours. Meropenem 1gm IV every 8 hours x 2 weeks Infuse over 30 minutes via [facility] Pharmacy to mix as minibag plus in 100mL NS 11/15/2024 Active Start: 11-15-2024 End: 11-15-2024 1 g, INTRAVENOUS, at 200 mL/ hr, Administer over 30 Minutes, ONCE, 1 dose, On Thu11/15/24 at 1300, Antimicrobial indication: Pathogen-directed, Infectious source(s): Intra-abdominal methylPREDNISolone 125 mg injection (1 source) Corticosteroid Start: 11-15-2024 End: 11-16-2024 125 mg, INTRAVENOUS, NEEDED, 2 doses, Starting on Thu11/15/24 at 1321, Until Thu11/16/24 at 0414, hypersensitivity reaction - give a second dose for moderate to severe reaction Multivitamin (Daily Multi-Vitamin) tablet (3 sources) Start: 01-15-2025 End: 03-21-2025 Multivitamin (Daily Multi-Vitamin) tablet Discontinued 1 {tbl} PO DAILY January 15, 2025 12:00am March 21, 2025 3:53am Start: 01-15-2025 Multivitamin ( Daily Multi-Vitamin) tablet Active 1 {tbl} PO DAILY January 15, 2025 12:00am ondansetron 4 mg oral tablet (5 sources) Serotonin-3 Receptor Antagonist Start: 10-27-2024 End: 11-10-2024 take 1 tablet by mouth every eight hours as needed ondansetron (ZOFRAN) 4 mg tablet Take 1 tablet by mouth every 8 hours as needed for nausea/vomiting for up to 14 days. 20 tablet 10/27/2024 11/02/2024 Discontinued microencapsulated potassium chloride 20 meq extended release oral tablet (20 sources) Start: 12-13-2020 End: 08-26-2024 take 1 tablet by mouth once daily potassium chloride ER (KLOR-CON M20) 20 mEq tablet Indications: Hypokalemia Take 1 tablet by mouth once daily. 30 tablet 1 07/23/2022 08/26/2024 Discontinued (Course of therapy completed) Start: 09-04-2013 End: 01-04-2025 Potassium Chloride (Klor-Con M10) 10 MEQ tablet,ER particles/crystals Discontinued 20 meq PO DAILY September 04, 2013 1:00am January 04, 2025 4:37am Comment on above: Take 1 tablet by ruth once daily. pravastatin sodium 20 mg oral tablet (1 source) HMG-CoA Reductase Inhibitor Start: 1 End: take 1 tablet by mouth once daily at bedtime pravastatin (PRAVACHOL) 20 mg tablet Take 1 tablet by mouth daily at bedtime. 30 tablet 5 12/14/2020 01/24/2022 Discontinued Comment on above: Take 1 tablet by ruth daily at bedtime. 5 ml sodium chloride 9 mg/ml injection (20 sources) Start: End: 10 mL, INTRAVENOUS, DIRECTED, 1 dose, Starting on Thu11/21/24 at 0927, Until Thu11/21/24 at 0910, Flush before blood draws with 10 mL and after blood draws with 20 mL. Flush before and after each dose with 10 mL. Flush unused lumens with 10 mL daily. Start: 11-16-2024 End: 11-16-2024 10 mL, INTRAVENOUS, DIREC MONIK, 1 dose, Starting on Thu11/16/24 at 1109, Until Thu11/16/24 at 0945, Flush before blood draws with 10 mL and after blood draws with 20 mL. Flush before and after each dose with 10 mL. Flush unused lumens with 10 mL daily. Start: 11-07-2024 End: 11-07-2024 10 mL, INTRAVENOUS, DIREC MONIK, 1 dose, Starting on Thu11/07/24 at 1143, Until Thu11/07/24 at 1143, Flush before blood draws with 10 mL and after blood draws with 20 mL. Flush before and after each dose with 10 mL. Flush unused lumens with 10 mL daily. Start: 11-05-2024 End: 11-05-2024 10 mL, INTRAVENOUS, DIREC MONIK, 1 dose, Starting on 11/05/24 at 1206, Until 11/05/24 at 1206, Flush before blood draws with 10 mL and after blood draws with 20 mL. Flush before and after each dose with 10 mL. Flush unused lumens with 10 mL daily. Start: 11-03-2024 End: 01-19-2025 sodium chloride (NaCl) 0.9% injection solution Inject 10 mL intravenously as directed. Flush before blood draws with 10 mL and after blood draws with 20 mL. Flush before and after each dose with 10 mL. Flush unused lumens with 10 mL daily. 11/03/2024 01/19/2025 Discontinued Start: 11-03-2024 End: 11-03-2024 10 mL, INTRAVENOUS, DIREC MONIK, 1 dose, Starting on Lucila 11/03/24 at 1224, Until Lucila 11/03/24 at 1215, Flush before blood draws with 10 mL and after blood draws with 20 mL. Flush before and after each dose with 10 mL. Flush unused lumens with 10 mL daily. vancomycin 125 mg oral capsule (20 sources) Glycopeptide Antibacterial Start: 01-04-2025 End: 03-21-2025 take 1 capsule by mouth every six hours Vancomycin 125 mg capsule Discontinued 125 mg PO EVERY 6 HOURS 40 10 0 January 04, 2025 12:00am March 21, 2025 3:53am Start: 12-01-2024 End: 12-11-2024 take 1 capsule by mouth four times daily vancomycin (VANCOCIN) 125 mg capsule Take 1 capsule by mouth four times daily for 10 days. 40 capsule 12/01/2024 12/11/2024 Active Start: 11-16-2024 End: 11-30-2024 inject 1 g intravenously every twelve hours vancomycin 1 g in D5W 250 mL (VANCOCIN) Indications: Postoperative intra-abdominal abscess (HCC) Inject 1 g intravenously every 12 hours for 14 days. First Dose on 11/15/24 @ [facility] Labs: CBC/DIFF, Creat, LFTs, Pre-dose Vancomycin level qMonday Tentative stop 11/29/24 7000 mL 11/16/2024 11/30/2024 Active Start: 11-15-2024 End: 11-15-2024 1 g, INTRAVENOUS, at 200 mL/ hr, Administer over 1 Hours, ONCE, 1 dose, On Tu11/15/24 at 1300, REFRIGERATE - NONCYTOTOXIC IRRITANT WITH VESICANT POTENTIAL, Antimicrobial indication: Empiric, Infectious source(s): Other (free text), Infectious source(s): N/A - Ambulatory vancomycin HCl in 5 % dextro se (VANCOMYCIN HCL IN DEXTROSE) 1 gram/250 mL soln (20 sources) Start: 11-15-2024 End: 01-19-2025 vancomycin HCl in 5 % dextro se (VANCOMYCIN HCL IN DEXTROSE) 1 gram/250 mL soln Inject 1 g intravenously every 12 hours. Vancomycin 1gm IV every 12 hours x 2 weeks Infuse over 60 minutes via [facility] to mix as minibag in 250mL D5W 11/15/2024 01/19/2025 Discontinued Start: 11-15-2024 vancomycin HCl in 5 % dextrose (VANCOMYCIN HCL IN DEXTROSE) 1 gram/250 mL soln Inject 1 g intravenously every 12 hours. 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] Onset: 10-12-2012 Resolved: 03-14-2024 Chronic Cardiac dysrhythmias (1 source) Tachycardia; Translations: [Tachycardia, unspecified] 10-24-2024 Episodic Chronic obstructive pulmonary disease and bronchiectasis (20 sources) Pulmonary emphysema; Translations: [Emphysema, unspecified] Onset: 08-14-2016 Chronic Chronic obstructive pulmonary disease and bronchiectasis (1 source) Bronchitis; Translations: [Bronchitis, not specified as acute or chronic] 08-26-2024 Episodic Diseases of white blood cells (1 source) Elevated white blood cell count, unspecified; Translations: [Leukocytosis, unspecified type] Onset: 12-01-2024 Chronic Disorders of lipid metabolism (20 sources) Mixed hyperlipidemia; Translations: [Mixed hyperlipidemia] Onset: 02-15-2019 Chronic Disorders of teeth and jaw (5 sources) Toothache; Translations: [Other specified disorders of teeth and supporting structures] Onset: 03-10-2025 03-10-2025 Episodic Fever of unknown origin (1 source) Fever; Translations: [Fever, unspecified] 10-24-2024 Episodic Intestinal infection (9 sources) Clostridium difficile diarrhea; Translations: [Enterocolitis due to Clostridium difficile, not specified as recurrent] Onset: 01-19-2025 01-04-2025 Episodic Malaise and fatigue (2 sources) Fatigue; Translations: [Other fatigue] Episodic Malignant neoplasm without specification of site (20 sources) Malignant adenomatous neoplasm; Translations: [Malignant (primary) neoplasm, unspecified] Onset: 08-03-2016 08-27-2021 Chronic Mood disorders (20 sources) Depressive disorder; Translations: [Depression, unspecified depression type] Onset: 09-13-2011 Chronic Mood disorders (1 source) Mood disorders; Translations: [Depression, unspecified depression type] Onset: 12-23-2014 Noninfectious gastroenteritis (1 source) Noninfective gastroenteritis and colitis, unspecified; Translations: [Colitis] Onset: 12-01-2024 Episodic Nonspecific chest pain (4 sources) Chest pain; Translations: [Chest pain, unspecified] 12-21-2019 Episodic Nutritional deficiencies (20 sources) Vitamin D deficiency; Translations: [Vitamin D deficiency, unspecified] Onset: 11-20-2015 Chronic Other aftercare (1 source) Post-discharge follow-up; Translations: [Encounter for follow-up examination after completed treatment for conditions other than malignant neoplasm] 11-04-2024 Episodic Other aftercare (1 source) Long-term current use of antibiotic; Translations: [terminal supervisor (current) use of antibiotics] 12-01-2024 Episodic Other aftercare (1 source) Other longwall headgate operator (current) drug therapy; Translations: [Medication management] Onset: 01-19-2025 Episodic Other connective tissue disease (1 source) Pain in finger of left hand; Translations: [Pain in left finger(s)] Episodic Other gastrointestinal disorders (4 sources) Diarrhea; Translations: [Diarrhea, unspecified] 03-28-2024 Episodic Other gastrointestinal disorders (1 source) Diarrhea, unspecified; Translations: [Diarrhea, unspecified] Onset: 01-19-2025 Episodic Other infections; including parasitic (3 sources) Infectious disease of abdomen 11-18-2024 Episodic Other lower respiratory disease (20 sources) Dyspnea; Translations: [Shortness of breath] Onset: 09-28-2013 Episodic Other nervous system disorders (1 source) Numbness and tingling sensation of skin; Translations: [Anesthesia of skin] 01-24-2025 Episodic Other nervous system disorders (1 source) Anesthesia of skin; Translations: [Numbness and tingling] Onset: 01-26-2025 Episodic Other nervous system disorders (1 source) Paresthesia of skin; Translations: [Numbness and tingling] Onset: 01-26-2025 Episodic Other nutritional; endocrine; and metabolic disorders (20 sources) Hypomagnesemia; Translations: [Hypomagnesemia] 12-09-2016 Chronic Other screening for suspected conditions (not mental disorders or infectious disease) (20 sources) Patient encounter status; Translations: [Encounter for screening for diabetes mellitus] Onset: 12-09-2016 Episodic Other skin disorders (1 source) Night sweats; Translations: [Generalized hyperhidrosis] 11-24-2024 Episodic Other upper respiratory infections (1 source) Chronic sinusitis; Translations: [Chronic sinusitis, unspecified] 11-16-2023 Chronic Other upper respiratory infections (4 sources) Upper respiratory infection; Translations: [Acute upper respiratory infection, unspecified] Episodic Otitis media and related conditions (1 source) Acute right otitis media; Translations: [Otitis media, unspecified, right ear] Episodic Residual codes; unclassified (2 sources) Reduced libido; Translations: [Decreased libido] 11-24-2024 Episodic Residual codes; unclassified (1 source) Tobacco use and exposure - finding; Translations: [Tobacco use] 03-21-2025 Episodic Secondary malignancies (20 sources) Secondary malignant neoplasm of skin; 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] Onset: 08-07-2016 12-09-2016 Chronic Substance-related disorders (20 sources) Smoker; Translations: [Nicotine dependence, unspecified, uncomplicated] Onset: 09-28-2013 Chronic Syncope (1 source) Near syncope; Translations: [Syncope and collapse] 01-08-2024 Episodic Viral infection (1 source) Disease caused by 2019-nCoV; Translations: [COVID-19] Episodic Past or Other Problems Problem Classification Problem Date Documented Date Episodic/Chronic Appendicitis and other appendiceal conditions (20 sources) Acute appendicitis; Translations: [Unspecified acute appendicitis] Onset: 10-24-2024 10-24-2024 Episodic Complications of surgical procedures or medical care (20 sources) Postoperative intra-abdominal abscess; Translations: [Infection following a procedure, organ and space surgical site, initial encounter] Onset: 10-30-2024 10-30-2024 Episodic Fluid and electrolyte disorders (20 sources) Hypokalemia; Translations: [Hypokalemia] Onset: 12-09-2016 Resolved: 11-02-2024 12-09-2016 Episodic Other aftercare (1 source) prison (current) use of antibiotics; Translations: [Antibiotic long-term use] Onset: 12-01-2024 Episodic Other aftercare (1 source) Encounter for follow-up examination after completed treatment for conditions other than malignant neoplasm; Translations: [Hospital discharge follow-up] Onset: 11-04-2024 Episodic Other lower respiratory disease (20 sources) Snoring; Translations: [Snoring] Onset: 09-28-2013 09-28-2013 Episodic Other non-traumatic joint disorders (20 sources) Pain in right knee; Translations: [Pain in joint, lower leg] Onset: 12-09-2016 12-09-2016 Episodic Other skin disorders (1 source) Generalized hyperhidrosis; Translations: [Night sweats] Onset: 11-24-2024 Episodic Ovarian cyst (20 sources) Cyst of left ovary; Translations: [Unspecified ovarian cyst, left side] Onset: 09-15-2016 10-02-2016 Episodic Peritonitis and intestinal abscess (20 sources) Abdominal abscess; Translations: [Peritoneal abscess] Onset: 10-30-2024 11-15-2024 Episodic Residual codes; unclassified (20 sources) Family history of breast cancer; Translations: [Family history of malignant neoplasm of breast] Onset: 06-26-2016 08-27-2021 Episodic Residual codes; unclassified (20 sources) Acquired absence of other specified parts of digestive tract; Translations: [Other postprocedural status] Onset: 10-27-2024 10-27-2024 Episodic Residual codes; unclassified (1 source) Decreased libido; Translations: [Decreased libido] Onset: 11-24-2024 Episodic Spondylosis; intervertebral disc disorders; other back problems (20 sources) Sacral back pain; Translations: [Sacrococcygeal disorders, not elsewhere classified] Onset: 12-31-2015 08-03-2016 Episodic Unclassified (1 source) Patient encounter status 12-13-2024 Results Test Name Value Interpretation Reference Range Facility [facility] 03-16-2025 [facility] Telephone (FAMPWS) JENNA VALADEZ ([id number]) 1970 F Date Time Provider Department 03/16/25 [facility] During your visit today, we recorded the following information about you: Shelia Blackmon RN 03/16/2025 4:30 PM Signed Patient calls and states that just had a bunch of teeth pulled. Patient was given a prescription of Hydrocodone for Pain. Patient asking if it is ok to take since she also takes Cymbalta? Please review and advise, EL Goodwin Danielle, APRN.CURING PRESS OPERATOR 03/16/2025 4:39 PM Signed Yes this should be ok. Shelia Blackmon RN 03/16/2025 4:55 PM Signed TC patient, left message for patient to call back and speak with a triage nurse regarding provider instructions. EL Goodwin M Robin, RN 03/16/2025 4:59 PM Signed Pt returned call and given provider's message below with verbalized understanding. Allergies As of Date: 03/16/2025 Noted Allergy Reaction PROZAC (FLUOXETINE HCL) 06/11/2015 14 - Other: See Comments Comments: headaches WELLBUTRIN (BUPROPION HCL) 12/19/2019 14 - Other: See Comments Comments: Increased anxiety and stomach ache Date Reviewed: 03/10/2025 Reviewed by: Maria De Jesus Flood MA - Fully Assessed Reason for Visit: Patient Question [8717] Prescriptions as of 03/16/2025 - amoxicillin (AMOXIL) 500 mg capsule Take 500 mg by mouth three times a day. - amoxicillin-clavulan ate potassium (AUGMENTIN) 875-125 mg per tablet Take 1 tablet by mouth every 12 hours for 7 days. - DIFICID 200 mg tablet Take 1 tablet by mouth every 12 hours. - DULoxetine (CYMBALTA) 30 mg capsule Take 1 capsule by mouth once daily. - ergocalciferol 50,000 unit capsule (VITAMIN D2, DRISDOL) Take 1 capsule by mouth one time a week. Use as directed. - diphenhydrAMINE HCL (BENADRYL ALLERGY) 50 mg tablet Take 50 mg by mouth every 12 hours. take before every Vancomycin dose - acetaminophen (TYLENOL) 500 mg tablet Take 2 tablets by mouth every 6 hours. - albuterol HFA (PROVENTIL HFA, VENTOLIN HFA) 90 mcg/actuation inhaler Inhale 2 Puffs as instructed every 4 hours as needed for wheezing/shortness of breath. 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] 08/07/2016 Emphysema lung (HCC) [J43.9] 08/14/2016 Ovarian cyst, left [N83.202] 09/15/2016 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 [*10/04/2016 Chronic pain of both knees [M25.561, M25.562, G*12/09/2016 Encounter for screening for cardiovascular diso*12/09/2016 Hypokalemia [E87.6] 12/09/2016 11/02/2024 Hyperlipidemia, mixed [E78.2] 02/15/2019 PTSD (post-traumatic stress disorder) [F43.10] 02/08/2024 Panic attack [F41.0] 02/08/2024 Well adult exam [Z00.00] 03/14/2024 KELSI (generalized anxiety disorder) [F41.1] 03/14/2024 Acute appendicitis [K35.80] 10/24/2024 S/P laparoscopic appendectomy [Z90.49] 10/27/2024 Postoperative intra-abdominal abscess (HCC) [T8*10/30/2024 Intra-abdominal abscess (HCC) [K65.1] 11/15/2024 Encounter Status:Closed by Sarika MARIN on 03/16/25 [facility] CNOVon 03-10-2025 CNOV Office Visit (WOUCA) JENNA VALADEZ ([id number]) 1970 F Date Time Provider Department 03/10/25 10:45 AM NELY SCHMIDT During your visit today, we recorded the following information about you: Temperature Pulse Respiration Blood pressure 98.1 degrees 99/minute 18/minute 146/88 Weight 60.8 kg Allergies As of Date: 03/10/2025 Noted Allergy Reaction PROZAC (FLUOXETINE HCL) 06/11/2015 14 - Other: See Comments Comments: headaches WELLBUTRIN (BUPROPION HCL) 12/19/2019 14 - Other: See Comments Comments: Increased anxiety and stomach ache Date Reviewed: 03/10/2025 Reviewed by: Maria De Jesus Flood MA - Fully Assessed Reason for Visit: Dental Problem [31] Cmt: L lower tooth infection, currently on day 3 of amox from dentist w/o relief Primary Visit Diagnosis:Pain, dental [K08.89] Other Visit Diagnosis:Dental decay [K02.9] Order(s):[] keTORolac 60 mg injection (Toradol)Disp: Rfl: amoxicillin-clavulan ate potassium (AUGMENTIN) 875-125 mg per tabletTake 1 tablet by mouth every 12 hours for 7 days.Disp: 14 tabletRfl: 0 Prescriptions as of 03/10/2025 - amoxicillin (AMOXIL) 500 mg capsule Take 500 mg by mouth three times a day. - amoxicillin-clavulan ate potassium (AUGMENTIN) 875-125 mg per tablet Take 1 tablet by mouth every 12 hours for 7 days. - DIFICID 200 mg tablet Take 1 tablet by mouth every 12 hours. - DULoxetine (CYMBALTA) 30 mg capsule Take 1 capsule by mouth once daily. - ergocalciferol 50,000 unit capsule (VITAMIN D2, DRISDOL) Take 1 capsule by mouth one time a week. Use as directed. - diphenhydrAMINE HCL (BENADRYL ALLERGY) 50 mg tablet Take 50 mg by mouth every 12 hours. take before every Vancomycin dose - acetaminophen (TYLENOL) 500 mg tablet Take 2 tablets by mouth every 6 hours. - albuterol HFA (PROVENTIL HFA, VENTOLIN HFA) 90 mcg/actuation inhaler Inhale 2 Puffs as instructed every 4 hours as needed for wheezing/shortness of breath. 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) [C79.2] 08/07/2016 Emphysema lung (HCC) [J43.9] 08/14/2016 Ovarian cyst, left [N83.202] 09/15/2016 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 [*10/04/2016 Chronic pain of both knees [M25.561, M25.562, G*12/09/2016 Encounter for screening for cardiovascular diso*12/09/2016 Hypokalemia [E87.6] 12/09/2016 11/02/2024 Hyperlipidemia, mixed [E78.2] 02/15/2019 PTSD (post-traumatic stress disorder) [F43.10] 02/08/2024 Panic attack [F41.0] 02/08/2024 Well adult exam [Z00.00] 03/14/2024 KELSI (generalized anxiety disorder) [F41.1] 03/14/2024 Acute appendicitis [K35.80] 10/24/2024 S/P laparoscopic appendectomy [Z90.49] 10/27/2024 Postoperative intra-abdominal abscess (HCC) [T8*10/30/2024 Intra-abdominal abscess (HCC) [K65.1] 11/15/2024 Prescriptions ordered this encounter Disp Refills Start End KETOROLAC 60 MG/2 ML INTRAMUSCULAR S* 03/10/2025 03/10/2025 Route: IM AMOXICILLIN 875 MG-POTASSIUM CLAVULA* 14 t* 0 03/10/2025 03/17/2025 Route: PO Sig: Take 1 tablet by mouth every 12 hours for 7 days. Encounter Status:Closed by JANELLE HARRISON on 03/10/25 [facility] 03-06-2025 [facility] Telephone (SCOTTYWS) JENNA VALADEZ ([id number]) 1970 F Date Time Provider Department 03/06/25 ELENA ISBELL During your visit today, we recorded the following information about you: Rosi Teran RN 03/06/2025 10:38 AM Signed Patient calls to let provider know that she is going to [facility] on Thursday for an abscessed tooth and asking if provider would give her an antibiotic. Notified would need an appointment. Patient reports provider knows her and her history well so asking if would consider. Also, asking what would be recommended as needed for pain. Patient reports Tylenol ES doesn't help her pain and she can't take ibuprofen because of being on Cymbalta. Please review and advise, EL Greene Danielle, APRN.CURING PRESS OPERATOR 03/06/2025 10:50 AM Signed I will not prescribe antibiotics without patient being seen. Tylenol would be patient's only option for OTC pain control at this time. Rosi Teran RN 03/06/2025 12:40 PM Signed Call placed to patient with no answer. Message left to return call to a triage nurse to receive provider message. EL Greene Krista, LPN 03/06/2025 1:23 PM Signed Pt notified of provider's message. Pt voiced understanding. Lizzy Dupont LPN Allergies As of Date: 03/06/2025 Noted Allergy Reaction PROZAC (FLUOXETINE HCL) 06/11/2015 14 - Other: See Comments Comments: headaches WELLBUTRIN (BUPROPION HCL) 12/19/2019 14 - Other: See Comments Comments: Increased anxiety and stomach ache Date Reviewed: 01/19/2025 Reviewed by: Kirstin Wallace MA - Fully Assessed Reason for Visit: Patient Question [7337] Prescriptions as of 03/06/2025 - DIFICID 200 mg tablet Take 1 tablet by mouth every 12 hours. - DULoxetine (CYMBALTA) 30 mg capsule Take 1 capsule by mouth once daily. - ergocalciferol 50,000 unit capsule (VITAMIN D2, DRISDOL) Take 1 capsule by mouth one time a week. Use as directed. - diphenhydrAMINE HCL (BENADRYL ALLERGY) 50 mg tablet Take 50 mg by mouth every 12 hours. take before every Vancomycin dose - acetaminophen (TYLENOL) 500 mg tablet Take 2 tablets by mouth every 6 hours. - albuterol HFA (PROVENTIL HFA, VENTOLIN HFA) 90 mcg/actuation inhaler Inhale 2 Puffs as instructed every 4 hours as needed for wheezing/shortness of breath. 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) [C79.2] 08/07/2016 Emphysema lung (HCC) [J43.9] 08/14/2016 Ovarian cyst, left [N83.202] 09/15/2016 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 [*10/04/2016 Chronic pain of both knees [M25.561, M25.562, G*12/09/2016 Encounter for screening for cardiovascular diso*12/09/2016 Hypokalemia [E87.6] 12/09/2016 11/02/2024 Hyperlipidemia, mixed [E78.2] 02/15/2019 PTSD (post-traumatic stress disorder) [F43.10] 02/08/2024 Panic attack [F41.0] 02/08/2024 Well adult exam [Z00.00] 03/14/2024 KELSI (generalized anxiety disorder) [F41.1] 03/14/2024 Acute appendicitis [K35.80] 10/24/2024 S/P laparoscopic appendectomy [Z90.49] 10/27/2024 Postoperative intra-abdominal abscess (HCC) [T8*10/30/2024 Intra-abdominal abscess (HCC) [K65.1] 11/15/2024 Encounter Status:Closed by LIZZY DUPONT on 03/06/25 Normal [facility] Office Visit Reporton 2024 Office Visit Report [facility] [address] [place] [address] OFFICE VISIT Date of Service: 01/25/25 MR#: [id number] Acct: [id number] Patient: JENNA VALADEZ Rep #: [id number] 2 : 1970 Provider: CARMELINA Mendes Age/Sex: 54/F Location: [facility] Status: Signed Intake Vital Signs 01/15/25 08:32 Height 5 ft 1.02 in Intake Visit Reasons: PE NON DOT DRUG SCREEN/[place] Allergies No Known Allergies Allergy (Verified 01/15/25 08:32) Office Procedures [facility] Billing Sheet Testing Pre-Employment Drug Screen: Yes 02/06/25810 Date Damian COSME Cosigner Signature: Date (if applicable) CC: Normal [facility] Folate SerPl-mCncon 01-27-20 25 Folate [Mass/Vol] 20.0 ng/mL Normal >4.7 [facility] Comment on above: Order Comment: Speci eb Type: BLOOD SPECIMENOrdering Facility: [facility] Address: [address] [place] [address] Performed By: #### 2 284-8, 2132-9 ####[facility] LABCLIA [id number] [place] [address] [place] Vit B12 SerPl-mCncon 025 Cobalamin (Vitamin B12) [Mass/Vol] 392 pg/mL Normal 232-1245 [facility] Comment on above: Order Comment: Speci men Type: BLOOD SPECIMENOrdering Facility: [facility] Address: [address] [place] [address] Performed By: #### 2 284-8, 2131-9 ####[facility] LABCLIA [id number] [address] [address] [place] Basic metabolic 2000 panelon 01-19-2025 Anion gap [Moles/Vol] 11 mmol/L Normal 8-15 [facility] Comment on above: Order Comment: Speci men Type: BLOOD SPECIMENOrdering Facility: [facility] Address: [address] [place], [place] [id number] Performed By: #### 2 4321-2, 277-1, ####[facility] LABIA [id number] [address] [address] [place] Calcium [Mass/Vol] 9.8 mg/dL Normal 8.5-10.2 [facility] Comment on above: Order Comment: Speci men Type: BLOOD SPECIMENOrdering Facility: [facility] Address: [address] [place] [address] Performed By: #### 2 4321-2, 2776-, ####[facility] LABIA [id number] [address] [address] [place] Chloride [Moles/Vol] 103 mmol/L Normal 98-107 [facility] Comment on above: Order Comment: Speci men Type: BLOOD SPECIMENOrdering Facility: [facility] Address: [address] [place] [address] Performed By: #### 2 4321-2, 2776-08, ####[facility] LABIA [id number] [address] [address] [place] CO2 [Moles/Vol] 23 mmol/L Normal 22-30 [facility] Comment on above: Order Comment: Speci men Type: BLOOD SPECIMENOrdering Facility: [facility] Address: [address] [place] [address] Performed By: #### 2 4321-2, 2777-, ####[facility] LABIA [id number] [address] [address] [place] Creatinine [Mass/Vol] 0.79 mg/dL Normal 0.58-0.96 [facility] Comment on above: Order Comment: Speckathy men Type: BLOOD SPECIMENOrdering Facility: [facility] Address: [address] [place] [address] Performed By: #### 2 4321-2, 27702-28, ####[facility] [id number] [place] [address] [place] Creatinine and Glomerular filtration rate.predicted panel (S/P/Bld) 88 mL/min/1.73m??? Normal >=60 [facility] Comment on above: Order Comment: Darrel parson Type: BLOOD SPECIMENOrdering Facility: [facility] Address: [address] [place] [address] Result Comment: Zara mated Glomerular Filtration Rate (eGFR) is calculated using the 2020 CKD-EPI creatinine equation. This equation utilizes serum creatinine, sex, and age as parameters. The creatinine assay has traceable calibration to isotope dilution-mass spectrometry. Refer to KDIGO guidelines for clinical interpretation. In patients with unstable renal function, e.g. those with acute kidney injury, the eGFR may not accurately reflect actual GFR. Performed By: #### 2 4321-2, 2776-08, ####[facility] LABIA [id number] [address] [address] [place] Glucose [Mass/Vol] 80 mg/dL Normal 74-99 [facility] Comment on above: Order Comment: Regii men Type: BLOOD SPECIMENOrdering Facility: [facility] Address: [address] [place] [address] Result Comment: The [place] Diabetes [employer] (ADA) provides guidance for cutoff values for fasting glucose and random glucose. The ADA defines fasting as no caloric intake for at least 8 hours. Fasting plasma glucose results between 100 to 125 mg/dL indicate increased risk for diabetes (prediabetes). Fasting plasma glucose results greater than or equal to 126 mg/dL meet the criteria for diagnosis of diabetes. In the absence of unequivocal hyperglycemia, results should be confirmed by repeat testing. In a patient with classic symptoms of hyperglycemia or hyperglycemic crisis, random plasma glucose results greater than or equal to 200 mg/dL meet the criteria for diagnosis of diabetes. Reference: Standards of Medical Care in Diabetes 2016, [place] [employer]. Diabetes Care. 2016.39(Suppl 1). Performed By: #### 2 4321-2, 2776-08, ####[facility] LABCLIA [id number] [address] [address] [place] Potassium [Moles/Vol] 4.2 mmol/L Normal 3.7-5.1 [facility] Comment on above: Order Comment: Speci men Type: BLOOD SPECIMENOrdering Facility: [facility] Address: [address] [place] [address] Performed By: #### 2 4321-2, 2776-08, ####[facility] LABCLIA [id number] [address] [address] [place] Sodium [Moles/Vol] 137 mmol/L Normal 136-144 [facility] Comment on above: Order Comment: Speci men Type: BLOOD SPECIMENOrdering Facility: [facility] Address: [address] [place] [address] Performed By: #### 2 4321-2, 2776-08, ####[facility] LABCLIA [id number] [address] [address] [place] Urea nitrogen [Mass/Vol] 8 mg/dL Normal 7-21 [facility] Comment on above: Order Comment: Speci men Type: BLOOD SPECIMENOrdering Facility: [facility] Address: [address] [place] [address] Performed By: #### 2 4321-2, 2776-08, ####[facility] JOSUÉ [id number] [address] [place] [id number] [place] CNOVon 01-19-2025 CNOV [facility] RORYJENNA Sarika ([id number]) 1970 F Date Time Provider Department 01/19/25 12:00 PM ELENA ISBELL During your visit today, we recorded the following information about you: Pulse Blood pressure Weight 91/minute 109/71 60 kg Elena Isbell, MARION.[facility] 01/19/2025 12:07 PM Signed Chief Complaint Patient presents with: Follow Up HPI Jennareina Valadez is a 54 year old female who presents here today for Above Complaints.. Patient presents for med follow up. Patient was started on cymbalta and buspar Past medical history, appointments, medications, allergies reviewed. Previous Medical History PAST MEDICAL HISTORY Diagnosis Date Anxiety Depression Emphysema lung (HCC) 08/14/2016 Hypokalemia Hypomagnesemia Low HDL (under 40) Previous Surgical History PAST SURGICAL HISTORY Procedure Laterality Date COLONOSCOPY 08/19/2016 EGD 08/19/2016 Family History FAMILY HISTORY Problem Relation Age of Onset Breast Cancer Mother Heart Maternal Grandmother Diabetes Maternal Grandmother Arthritis Maternal Uncle Breast Cancer Sister Breast Cancer Paternal Aunt Patient Allergies ALLERGIES Allergen Reactions Prozac [Fluoxetine * Other: See Comments headaches Wellbutrin [Bupropi* Other: See Comments Increased anxiety and stomach ache Current Medications Current Outpatient Medications on File Prior to Visit Medication Sig ergocalciferol 50,000 unit capsule (VITAMIN D2, DRISDOL) Take 1 capsule by mouth one time a week. Use as directed. busPIRone (BUSPAR) 7.5 mg tablet Take 1 tablet by mouth three times a day. DULoxetine (CYMBALTA) 20 mg capsule Take 1 capsule by mouth once daily. diphenhydrAMINE HCL (BENADRYL ALLERGY) 50 mg tablet Take 50 mg by mouth every 12 hours. take before every Vancomycin dose vancomycin HCl in 5 % dextrose (VANCOMYCIN HCL IN DEXTROSE) 1 gram/250 mL soln Inject 1 g intravenously every 12 hours. Vancomycin 1gm IV every 12 hours x 2 weeks Infuse over 60 minutes via Control a [facility] to mix as minibag in 250mL D5W meropenem (MERREM) 1 gram injection Inject 1 g intravenously every 8 hours. Meropenem 1gm IV every 8 hours x 2 weeks Infuse over 30 minutes via [facility] Pharmacy to mix as minibag plus in 100mL NS sodium chloride (NaCl) 0.9% injection solution Inject 10 mL intravenously as directed. Flush before blood draws with 10 mL and after blood draws with 20 mL. Flush before and after each dose with 10 mL. Flush unused lumens with 10 mL daily. acetaminophen (TYLENOL) 500 mg tablet Take 2 tablets by mouth every 6 hours. albuterol HFA (PROVENTIL HFA, VENTOLIN HFA) 90 mcg/actuation inhaler Inhale 2 Puffs as instructed every 4 hours as needed for wheezing/shortness of breath. No current facility-administere d medications on file prior to visit. Social History Social History Tobacco Use Smoking status: Every Day Current packs/day: 1.00 Average packs/day: 1 pack/day for 25.0 years (25.0 ttl pk-yrs) Types: Cigarettes Smokeless tobacco: Never Vaping Use Vaping status: Never Used Substance Use Topics Alcohol use: No Drug use: Not Currently Types: Marijuana Review of Symptoms REVIEW OF SYSTEMS SEE HPI EXAM: BP 109/71 Pulse 91 Wt 60 kg (132 lb 4.4 oz) LMP (LMP Unknown) BMI 24.66 kg/m? General Appearance: Well appearing, alert, in no acute distress, well-hydrated, well nourished. Health Maintenance List Hepatitis C Screening Never done HIV Screening Never done Hepatitis B Vaccine(1 of 3 - 19+ 3-dose series) Never done Mammogram Screening due on 08/04/2017 Shingrix Vaccine(1 of 2) Never done Covid-19 Vaccine(2023- season) due on 05/01/2024 Pneumococcal Vaccine: 50+(3 of 3 - PCV20 or PCV21) due on 11/14/2024 Lung Cancer Screening due on 03/14/2025 Cervical Cancer Screening due on 03/14/2025 Influenza Vaccine(Season Ended) due on 05/01/2025 Annual PCP Team Chronic Disease Visit due on 12/01/2025 DTaP,Tdap,Td Vaccine(2 - Td or Tdap) due on 04/15/2026 Colorectal Cancer Screening due on 08/19/2026 Diabetes Screening due on 12/02/2027 Lipid Screening due on 01/11/2029 Data reviewed KELSI-7 03/27/2024 11/04/2024 11/23/2024 01/18/2025 KELSI-7 All Questions Feeling nervous, anxious, or on edge More than half the days Several days Nearly Everyday Several days Not being able to stop or control worrying More than half the days Several days Nearly Everyday Several days Worrying too much about different things More than half the days Several days Nearly Everyday Nearly Everyday Trouble relaxing Not at all Several days More than half the days Several days Being so restless that it is hard to sit still Not at all Not at all More than half the days Several days Becoming easily annoyed or irritable Not at all More than half the days More than half the days More than half the days Feeli (more content not included)... Normal [facility] CNPNon 01-19-2025 CNPN Telephone (FAMBeckiWS) JENNA VALADEZ ([id number]) 1970 F Date Time Provider Department 01/19/25 [facility] During your visit today, we recorded the following information about you: Rosi Teran RN 01/19/2025 1:51 PM Signed Patient calls back to mention that her sister had the same symptoms of finger/toe numbness when she had c-diff years ago. She said it was something neuro but couldn't remember the rest. I am thinking she means neuropathy. She just wanted to let provider know incase there was any other labs or tests that you would recommend. RosiEL Nixon Danielle, APRN.CURING PRESS OPERATOR 01/19/2025 2:01 PM Signed No further testing indicated at this time. Shellie Ruiz RN 01/19/2025 2:18 PM Signed Pt called and is notified of providers message and instructions. Pt voices understanding. Shellie Ruiz RN Allergies As of Date: 01/19/2025 Noted Allergy Reaction PROZAC (FLUOXETINE HCL) 06/11/2015 14 - Other: See Comments Comments: headaches WELLBUTRIN (BUPROPION HCL) 12/19/2019 14 - Other: See Comments Comments: Increased anxiety and stomach ache Date Reviewed: 01/19/2025 Reviewed by: Kirstin Wallace MA - Fully Assessed Reason for Visit: Patient Update [1234] Prescriptions as of 01/19/2025 - DIFICID 200 mg tablet Take 1 tablet by mouth every 12 hours. - DULoxetine (CYMBALTA) 30 mg capsule Take 1 capsule by mouth once daily. - ergocalciferol 50,000 unit capsule (VITAMIN D2, DRISDOL) Take 1 capsule by mouth one time a week. Use as directed. - diphenhydrAMINE HCL (BENADRYL ALLERGY) 50 mg tablet Take 50 mg by mouth every 12 hours. take before every Vancomycin dose - acetaminophen (TYLENOL) 500 mg tablet Take 2 tablets by mouth every 6 hours. - albuterol HFA (PROVENTIL HFA, VENTOLIN HFA) 90 mcg/actuation inhaler Inhale 2 Puffs as instructed every 4 hours as needed for wheezing/shortness of breath. 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] 08/07/2016 Emphysema lung (HCC) [J43.9] 08/14/2016 Ovarian cyst, left [N83.202] 09/15/2016 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 [*10/04/2016 Chronic pain of both knees [M25.561, M25.562, G*12/09/2016 Encounter for screening for cardiovascular diso*12/09/2016 Hypokalemia [E87.6] 12/09/2016 11/02/2024 Hyperlipidemia, mixed [E78.2] 02/15/2019 PTSD (post-traumatic stress disorder) [F43.10] 02/08/2024 Panic attack [F41.0] 02/08/2024 Well adult exam [Z00.00] 03/14/2024 KELSI (generalized anxiety disorder) [F41.1] 03/14/2024 Acute appendicitis [K35.80] 10/24/2024 S/P laparoscopic appendectomy [Z90.49] 10/27/2024 Postoperative intra-abdominal abscess (HCC) [T8*10/30/2024 Intra-abdominal abscess (HCC) [K65.1] 11/15/2024 Encounter Status:Closed by SHELLIE RUIZ on 01/19/25 Normal [facility] Magnesium SerPl-mCncon 01-19 Magnesium [Mass/Vol] 1.8 mg/dL Normal 1.7-2.3 [facility] Comment on above: Order Comment: Speci men Type: BLOOD SPECIMENOrdering Facility: [facility] Address: [address] [place] [address] [place] [address] Performed By: #### 2 4321-2, 6397-1, 95104-1 ####[facility] LABCLIA [id number] [place] [address] [place] Phosphate SerPl-mCncon 01-19 Phosphate [Mass/Vol] 3.5 mg/dL Normal 2.7-4.8 [facility] Comment on above: Order Comment: Speci men Type: BLOOD SPECIMENOrdering Facility: [facility] Address: [address] [place] [address] Performed By: #### 2 4321-2, 2777-1, 25467-0 ####[facility] LABCLIA [id number] CHARISKulwinder [id number] [place] [address] [place] [facility] CNPNon 01-17-2025 CNPN Telephone (MARIVELWSManisha) JENNA VALADEZ ([id number]) 1970 F Date Time Provider Department 01/17/25 CAMI CALDWELL During your visit today, we recorded the following information about you: Cami Caldwell MSW 01/17/2025 10:55 AM Signed Sw spoke with patient regarding financial/employment difficulties. Patient reports that she has had multiple health issues lately and has not been able to work as of late. Patient reports looking for employment assistance services. Sw and patient discussed [employer] [place] with Disabilities to discuss health issue and employment opportunities. SW provided patient with [facility] address and phone number. Patient notes that she will reach out to [facility] with Disabilities on [address]. Staci and patient also discussed social service support agencies that help with bills ie. [employer], [employer], [facility]. Patient notes that she will keep those agencies in mind. Patient notes that she will call [employer] and see if they have job assistance ideas. Patient thanked Sw for call and noted that she would let this SW and or MARISA Moore know if she has any further financial support needs. Allergies As of Date: 01/17/2025 Noted Allergy Reaction PROZAC (FLUOXETINE HCL) 06/11/2015 14 - Other: See Comments Comments: headaches WELLBUTRIN (BUPROPION HCL) 12/19/2019 14 - Other: See Comments Comments: Increased anxiety and stomach ache Date Reviewed: 12/01/2024 Reviewed by: Samantha Park RN - Fully Assessed Prescriptions as of 01/19/2025 - DIFICID 200 mg tablet Take 1 tablet by mouth every 12 hours. - DULoxetine (CYMBALTA) 30 mg capsule Take 1 capsule by mouth once daily. - ergocalciferol 50,000 unit capsule (VITAMIN D2, DRISDOL) Take 1 capsule by mouth one time a week. Use as directed. - diphenhydrAMINE HCL (BENADRYL ALLERGY) 50 mg tablet Take 50 mg by mouth every 12 hours. take before every Vancomycin dose - acetaminophen (TYLENOL) 500 mg tablet Take 2 tablets by mouth every 6 hours. - albuterol HFA (PROVENTIL HFA, VENTOLIN HFA) 90 mcg/actuation inhaler Inhale 2 Puffs as instructed every 4 hours as needed for wheezing/shortness of breath. 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) [C79.2] 08/07/2016 Emphysema lung (HCC) [J43.9] 08/14/2016 Ovarian cyst, left [N83.202] 09/15/2016 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 [*10/04/2016 Chronic pain of both knees [M25.561, M25.562, G*12/09/2016 Encounter for screening for cardiovascular diso*12/09/2016 Hypokalemia [E87.6] 12/09/2016 11/02/2024 Hyperlipidemia, mixed [E78.2] 02/15/2019 PTSD (post-traumatic stress disorder) [F43.10] 02/08/2024 Panic attack [F41.0] 02/08/2024 Well adult exam [Z00.00] 03/14/2024 KELSI (generalized anxiety disorder) [F41.1] 03/14/2024 Acute appendicitis [K35.80] 10/24/2024 S/P laparoscopic appendectomy [Z90.49] 10/27/2024 Postoperative intra-abdominal abscess (HCC) [T8*10/30/2024 Intra-abdominal abscess (HCC) [K65.1] 11/15/2024 Encounter Status:Closed by CAMI CALDWELL on 01/19/25 [facility] JEN[facility] VALADEZ ([id number]) 1970 F Date Time Provider Department 01/16/25 ELENA ISBELL During your visit today, we recorded the following information about you: Oliva Diego LPN 01/16/2025 8:16 AM Signed Patient calling she had been dealing with C-diff for over a month now. She had to go to [facility] ER yesterday and was changed from vancomycin to Dificid. She is having constant diarrhea. She has not picked up the rx yet, pharmacy did not have it in. Patient asking what is here next step if this does not work? She has missed 2 weeks of work and again. 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 Please advise Elena Isbell APRN.CURING PRESS OPERATOR 01/16/2025 8:39 AM Signed If patient does not improve on dificid she may need fecal transplant. Does she currently see GI? Shellie Ruiz, EL 01/16/2025 10:41 AM Signed Pt called and is notified of providers message. Pt states she doesn't see GI. She states she went to the ER and they switched her to the Dificid, but the pharmacy was out of it and they won't have any in unitl 3 pm today. Pt has an appointment with provider on . She states she works [employer] and the place she works for won't let her back until this is taken care of. Pt states she has bills to pay and she isn't . She was asking if there is anything that can be done to get rid of this more quickly like her getting put in the hospital. She states this has been going on since October. Please call and advise. EL Schaeffer Danielle, MARION.CURING PRESS OPERATOR 01/16/2025 12:20 PM Signed No being hospitalized will not change treatment course as cdiff must be treated with oral antibiotics. Does she have short term disability? If so she should bring that paperwork with her. Or at least [facility] so she does not lose her job. Shellie Ruiz, EL 01/16/2025 1:54 PM Signed Called and left a voicemail for the Patient to call back and ask for a nurse to receive the providers message. EL Schaeffer M Robin, RN 01/16/2025 2:30 PM Signed Pt returned call and given provider's message below with verbalized understanding. Pt reports you have to work at a job for a year to get those benefits. Reports she has maxed out her credit cards, and trying to pay her bills, reports she was working and at the end of Oct her appendix burst, then she became septic, then she developed and abscess- and had to have 5 IV AB's with a Nurse, then she got C-Diff. States she hasn't been able to keep a job since her appendix burst. Reports noone is going to let her work with c-diff. 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 Asking if she would qualify for any assistance. States she's going to lose everything. Does SW know of any assistance pt may qualify for? Please advise patient. Elena Isbell APRN.CURING PRESS OPERATOR 01/16/2025 3:02 PM Signed Please let patient know I have placed a referral for SW to help patient with assistance programs. Allergies As of Date: 01/16/2025 Noted Allergy Reaction PROZAC (FLUOXETINE HCL) 06/11/2015 14 - Other: See Comments Comments: headaches WELLBUTRIN (BUPROPION HCL) 12/19/2019 14 - Other: See Comments Comments: Increased anxiety and stomach ache Date Reviewed: 12/01/2024 Reviewed by: Samantha Park RN - Fully Assessed Reason for Visit: Patient Question [2088] Primary Visit Diagnosis:Postoperat opal intra-abdominal abscess (HCC) [T81.43XA, K65.1] Other Visit Diagnosis:C. difficile diarrhea [A04.72] Order(s):PRIMARY CARE SOCIAL WORK CONSULT [1423411] Order #: [id number]: 1 Prescriptions as of 02/23/2025 - DIFICID 200 mg tablet Take 1 tablet by mouth every 12 hours. - DULoxetine (CYMBALTA) 30 mg capsule Take 1 capsule by mouth once daily. - ergocalciferol 50,000 unit capsule (VITAMIN D2, DRISDOL) Take 1 capsule by mouth one time a week. Use as directed. - diphenhydrAMINE HCL (BENADRYL ALLERGY) 50 mg tablet Take 50 mg by mouth every 12 hours. take before every Vancomycin dose - acetaminophen (TYLENOL) 500 mg tablet Take 2 tablets by mouth every 6 hours. - albuterol HFA (PROVENTIL HFA, VENTOLIN HFA) 90 mcg/actuation inhaler Inhale 2 Puffs as instructed every 4 hours as needed for wheezing/shortness of breath. 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 Normal [facility] Absolute lymphocyte countOrd ered By: Naomy Torrez on 01-15-2025 Lymphocytes Auto (Unsp spec) [#/Vol] 1.80 10*3/uL 0.83-4.51 [facility] Absolute neutrophil countOrd ered By: Naomy Torrez on 01-15-2025 Neutrophils (Bld) [#/Vol] 4.5 10*3/uL 2.0-7.7 [facility] Anion gap in Serum or Plasma Ordered By: Naomy Torrez on 01-15-2025 Anion gap [Moles/Vol] 13 mmol/L 5-15 [facility] Automated blood erythrocyte countOrdered By: Naomy Torrez on 01-15-2025 RBC (Bld) [#/Vol] 4.70 10*6/uL 4.2-5.4 [facility] Comment on above: Performed By: #### L 503.6005, L500.2500, L100.0100 #### [facility] [address], [address] Automated blood hematocrit ( percentage)Ordered By: Naomy Torrez on 01-15-2025 Hematocrit (Bld) [Volume fraction] 39.5 % 37-47 [facility] Comment on above: Performed By: #### L 503.6005, L500.2500, L100.0100 #### [facility] [address] [place], [address] Automated lymphocyte count a s percentage of total leukocytesOrdered By: Naomy Torrez on 01-15-2025 Lymphocytes/100 WBC Auto (Unsp spec) 25.6 % 19-41 [facility] BUN/creatinine ratioOrdered By: Naomy Torrez on 01-15-2025 Urea nitrogen/Creatinine [Mass ratio] 10.5 mg/mg 10- [facility] Basic Metabolic Profile (BMP )on 01-15-2025 BUN/CRE 10.5 RATIO Normal - [facility] Comment on above: Performed By: #### L 503.6005, L500.2500, L100.0100 #### [facility] [address] [place], [address] ECRCL 75.56 ml/min Normal 50-250 [facility] Comment on above: Performed By: #### L 503.6005, L500.2500, L100.0100 #### [facility] [address] [place], [address] GAP 13 Normal 5-15 [facility] Comment on above: Performed By: #### L 503.6005, L500.2500, L100.0100 #### [facility] [address] [place], [address] Potassium [Moles/Vol] 3.3 mmol/L Normal 3.3-5.1 [facility] Comment on above: Performed By: #### L 503.6005, L500.2500, L100.0100 #### [facility] [address] [place], [address] Basophil percentageOrdered B y: Remus Ungur on 01-15-2025 Basophils/100 WBC (Bld) 1.1 % High 0-1 [facility] Comment on above: Performed By: #### L 503.6005, L500.2500, L100.0100 #### [facility] [address] [place], [address] CBC W/Diff, Automatedon 12-29 Absolute Lymph 1.80 X10 3/uL Normal 0.83-4.51 [facility] Comment on above: Performed By: #### L 503.6005, L500.2500, L100.0100 #### [facility] [address] [place], [address] Absolute Neut 4.5 X10 3/uL Normal 2.0-7.7 [facility] Comment on above: Performed By: #### L 503.6005, L500.2500, L100.0100 #### [facility] [address] [place], [address] IG% 0.300 Normal 0.0-0.9 [facility] Comment on above: Result Comment: IG% - Immature Granulocytes (promyelocytes, myelocytes and metamyelocytes) > 1% indicates that a LEFT SHIFT is Present. Performed By: #### L 503.6005, L500.2500, L100.0100 #### [facility] [address] [place], [address] Lymphocytes/100 WBC (Bld) 25.6 % Normal 19-41 [facility] Comment on above: Performed By: #### L 503.6005, L500.2500, L100.0100 #### [facility] [address] [place], [address] Nucleated RBC (Bld) [#/Vol] 0 10*3/uL Normal 0-5 [facility] Comment on above: Performed By: #### L 503.6005, L500.2500, L100.0100 #### [facility] [address] [place], [address] RDW SD 41.6 fl Normal 35.1-43.9 [facility] Comment on above: Performed By: #### L 503.6005, L500.2500, L100.0100 #### [facility] [address] [place], [address] Carbon dioxide, total [Moles /volume] in Central venous bloodOrdered By: Naomy Torrez on 01-15-2025 CO2 [Moles/Vol] 25.9 mmol/L 21.0-32.0 [facility] Comment on above: Performed By: #### L 503.6005, L500.2500, L100.0100 #### [facility] [address] [place], [address] Chloride assayOrdered By: Helen Torrez on 01-15-2025 Chloride [Moles/Vol] 102 mmol/L 98-108 [facility] Comment on above: Performed By: #### L 503.6005, L500.2500, L100.0100 #### [facility] [address] [place], [address] Emergency Department Summary on 01-15-2025 Emergency Department Summary [facility] Medical Records Department [address] [place] [address] Emergency Department Summary 01/15/25 MR#: [id number] Acct: [id number] Name: JENNA VALADEZ Rep #: [id number] : 1970 54 From: Naomy Torrez DO PCP: Elena Isbell, CAGE MANAGER-C Status:DEP ER Location: ED HPI HPI - GI History of Present Illness Chief Complaint: Diarrhea Detail of Chief Complaint: Diarrhea Informant: patient Narrative Narrative: Patient presents with complaint diarrhea that started out a month ago. Patient states that in October of this year she had a appendectomy and had complications related to that and developed subsequently an abscess. She was admitted and was on multiple antibiotics. A month ago she developed diarrhea and tested positive for C. difficile. She was started on vancomycin. On January 04 she was seen in our emergency department and tested positive for C. difficile again and was started on vancomycin again so therefore this is her second round of oral vancomycin. She continues to have diarrhea up to 3 episodes a day. She denies any abdominal pain. She has had no fever. 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 PFSH PFS Home Medications ???Medication ???Instructions ???Recorded ???Last Taken ???Type inhalational spacing device ##1 12/20/19 Unknown Rx duloxetine 20 mg capsule,delayed 20 mg PO DAILY 01/04/25 01/15/25 H istory release (Cymbalta) vancomycin 125 mg capsule 125 mg PO Q6H 10 days #40 caps 03/2401/15/25 Rx Lactobacillus acidophilus 10 10,000 mmu cells PO DAILY 01/15/25 01/15/25 History billion cell capsule (NewFlora) fidaxomicin 200 mg tablet (Dificid) 200 mg PO BID 10 days #20 tabs 01/15/25 Unknown Rx multivitamin (Daily Multi-Vitamin 1 tab PO DAILY 01/15/25 01/15/25 History tablet) Allergy/AdvReac Type Severity Reaction Status Date / Time No Known Allergies Allergy Verified 01/15/25 08:32 Surgical History Hx of appendectomy Social History (Updated 06/15/20 @ 13:36 by Eduardo COSME, PA) Smoking Status: Current every day smoker tobacco type: cigarettes ROS ROS ED Review of Systems ROS Unobtainable: other Constitutional Constitutional ED: Reports lethargy; Denies chills, fever(s), sweats or weight loss Eyes Eyes: Denies blurry vision, change in vision or diplopia ENT ENT ED: Denies rhinorrhea or sore throat Cardiovascular Cardiovascular: Denies chest pain, orthopnea or racing heartbeat Respiratory/Chest Respiratory/Chest: Denies cough, dyspnea, dyspnea on exertion, orthopnea or sputum Gastrointestinal Gastrointestinal: Reports diarrhea; Denies abdominal pain, nausea or vomiting Genitourinary Genitourinary ED: Denies dysuria, hematuria or urinary frequency Musculoskeletal Musculoskeletal: Denies arthralgias, back pain, myalgias or neck pain Integumentary Denies abscess, Abrasions or rash Neurologic Neurologic: Denies headache(s) or weakness Psychiatric Psychiatric: Denies anxiety, depression or suicidal thoughts Endocrine Endocrinology: Denies polydipsia, polyphagia or polyuria Hematologic/Lymphati c Hematologic/Lymphati c: Denies easy bleeding, easy bruising or lymphadenopathy Allergic/Immunologic Allergic/Immunologic ED: Denies mouth swelling, tongue swelling or urticaria EXAM Physical Exam Const Vital Signs: 01/15/25 08:32 01/15/25 09:31 01/15/25 10:32 Temperature 98.6 F 98.6 F 97.9 F Temperature Source Oral Oral Oral Pulse Rate 108 H 108 H 81 Respiratory Rate 16 16 17 Blood Pressure 140/75 H 140/75 H 103/47 L Blood Pressure Mean 96 96 65 Pulse Ox 99 99 100 Oxygen Delivery Method Room Air Room Air Room Air Positive well nourished and well developed General Appearance ED: well developed and NAD HEENT Reports TM's clear and moist mucous membranes normocephalic and atraumatic; Negative for trauma or tenderness Tympanic Membrane ED: Yes TM's clear Eyes PERRL and EOMs intact bilaterally General Eye ED: Negative for pale conjunctiva or scleral icterus Neck no lymphadenopathy, supple and no JVD General: Negative for tenderness Chest Wall inspection of chest normal and palpation of chest normal Chest: Negative for tenderness Resp normal respiratory effort and clear to auscultation bilaterally Effort and Inspection: Negative for respiratory distress or pain with movement Auscultation: Negative for rhonchi, wheezes or diminished lung sounds Cardio regular rhythm, S1 normal heart sound, S2 normal heart sound and no murmurs Rate: tachycardic Peripheral Pulses: pulses 2+ throughout GI normal to inspection, nondistended, normoactive bowel sounds, soft to palpation, non-tender, non- distended and no masses Back/Spine no CVA tend (more content not included)... Normal [facility] Eosinophil percentageOrdered By: Naomy Torrez on 01-15-2025 Eosinophils/100 WBC (Bld) 2.0 % 0-5 [facility] Comment on above: Performed By: #### L 503.6005, L500.2500, L100.0100 #### [facility] [address] [place], [place], [id number] Erythrocyte distribution wid th ratioOrdered By: Naomy Torrez on 01-15-2025 Erythrocyte distribution width (RBC) [Ratio] 13.4 % 11.6-14.6 [facility] Comment on above: Performed By: #### L 503.6005, L500.2500, L100.0100 #### [facility] [address] [place], [address] Erythrocyte distribution wid th standard deviationOrdered By: Naomy Torrez on 01-15-2025 Erythrocyte distribution width (RBC) [Ratio] 41.6 fl 35.1-43.9 [facility] Glomerular filtration rate ( GFR) estimation/1.73 sq m using serum, plasma, or whole bOrdered By: Naomy Torrez on 01-15-2025 GFR/1.73 sq M.predicted among non-blacks MDRD (S/P/Bld) [Vol rate/Area] 102 mL/min/{1.73_m2} >60 [facility] Comment on above: mL/min/1.73m2 CKD-EP I Creatinine Equation (2020) Result Comment: mL/m in/1.73m2 CKD-EPI Creatinine Equation (2020) Performed By: #### L 503.6005, L500.2500, L100.0100 #### [facility] [address] [place], [address] Hemoglobin measurementOrdere d By: Naomy Torrez on 01-15-2025 Hemoglobin (Bld) [Mass/Vol] 13.5 g/dL 12.0-15.0 [facility] Comment on above: Performed By: #### L 503.6005, L500.2500, L100.0100 #### [facility] [address] [place], [address] Immature granulocytes/100 WB C Auto (Bld)Ordered By: Naomy Torrez on 01-15-2025 Immature granulocytes/100 WBC (Bld) 0.300 % 0.0-0.9 [facility] Comment on above: IG% - Immature Granu locytes (promyelocytes, myelocytes and metamyelocytes) > 1% indicates that a LEFT SHIFT is Present. Lactic acid measurementOrder ed By: Naomy Torrez on 01-15-2025 Lactate [Moles/Vol] 1.4 mmol/L 0.0-2.0 [facility] Comment on above: Order Comment: Y Performed By: #### L 503.6005, L500.2500, L100.0100 #### [facility] [address] [place], [address] MCV (mean corpuscular volume ) determinationOrdered By: Naomy Torrez on 01-15-2025 MCV (RBC) [Entitic vol] 84.0 fL 81-99 [facility] Comment on above: Performed By: #### L 503.6005, L500.2500, L100.0100 #### [facility] [address] [place], [address] Mean corpuscular hemoglobin (MCH) determinationOrdered By: Naomy Torrez on 01-15-2025 MCH (RBC) [Entitic mass] 28.7 pg 27.0-32.0 [facility] Comment on above: Performed By: #### L 503.6005, L500.2500, L100.0100 #### [facility] [address] [place], [address] Mean corpuscular hemoglobin concentration (MCHC) determinationOrdered By: Naomy Torrez on 01-15-2025 MCHC (RBC) [Mass/Vol] 34.2 g/dL 32-36 [facility] Comment on above: Performed By: #### L 503.6005, L500.2500, L100.0100 #### [facility] [address] [place], [address] Mean platelet volume determi nationOrdered By: Naomy Torrez on 01-15-2025 Platelet mean volume (Bld) [Entitic vol] 9.3 fL 6.2-12.0 [facility] Comment on above: Performed By: #### L 503.6005, L500.2500, L100.0100 #### [facility] [address] [place], [address] Monocyte percentageOrdered B y: Naomy Torrez on 01-15-2025 Monocytes/100 WBC (Bld) 7.0 % 0-10 [facility] Comment on above: Performed By: #### L 503.6005, L500.2500, L100.0100 #### [facility] [address] [place], [address] Neutrophil percentageOrdered By: Lu Lore on 01-15-2025 Neutrophils/100 WBC (Bld) 64.0 % 47-70 [facility] Comment on above: Performed By: #### L 503.6005, L500.2500, L100.0100 #### [facility] [address] [place], [address] Nucleated red blood cell per centageOrdered By: Lu Lore on 01-15-2025 Nucleated RBC/100 WBC (Bld) [Ratio] 0 % 0-5 [facility] Platelet countOrdered By: Re kristen Torrez on 01-15-2025 Platelets (Bld) [#/Vol] 391 10*3/uL 150-450 [facility] Comment on above: Performed By: #### L 503.6005, L500.2500, L100.0100 #### [facility] [address] [place], [address] Potassium measurement (mass/ volume)Ordered By: Naomy Lore on 01-15-2025 Potassium (Unsp spec) [Mass/Vol] 3.3 mmol/L 3.3-5.1 [facility] Serum creatinine measurement (mass/volume)Ordered By: Naomy Torrez on 01-15-2025 Creatinine [Mass/Vol] 0.69 mg/dL Low 0.70-1.20 [facility] Comment on above: Performed By: #### L 503.6005, L500.2500, L100.0100 #### [facility] [address] [place], [address] Serum glucose measurement (m ass/volume)Ordered By: Naomy Torrez on 01-15-2025 Glucose [Mass/Vol] 99 mg/dL 70-99 [facility] Comment on above: Performed By: #### L 503.6005, L500.2500, L100.0100 #### [facility] [address] [place], [address] Serum or plasma calcium liset urement (mass/volume)Ordered By: Naomy Lore on 01-15-2025 Calcium [Mass/Vol] 9.7 mg/dL 7.6-11.0 [facility] Comment on above: Performed By: #### L 503.6005, L500.2500, L100.0100 #### [facility] [address] [place], [address] Serum or plasma urea nitroge n measurement (mass/volume)Ordered By: Naomy Torrez on 01-15-2025 Urea nitrogen [Mass/Vol] 7 mg/dL 4-19 [facility] Comment on above: Performed By: #### L 503.6005, L500.2500, L100.0100 #### [facility] [address] [facility] [place], [address] Sodium levelOrdered By: Lusim april Lore on 01-15-2025 Sodium [Moles/Vol] 140 mmol/L 133-145 [facility] Comment on above: Performed By: #### L 503.6005, L500.2500, L100.0100 #### [facility] [address] [place] [place], [address] White blood cell (WBC) count Ordered By: Naomy Agostojerson on 01-15-2025 WBC (Bld) [#/Vol] 7.0 10*3/uL 4.4-11.0 [facility] Comment on above: Performed By: #### L 503.6005, L500.2500, L100.0100 #### [facility] [address] [place], [address] Ova and Parasites 8623on OP OVA AND PARASITES EXAM, ROUTINE These results were obtained using wet preparation(s) and trichrome stained smear. This test does not include testing for Crytosporidium parvum, Cyclospora, or Microsporidia. One negative specimen does not rule out the possibility of a parasitic infection. TESTING PERFORMED AT [facility]. ORIGINAL REPORT ON FILE IN LAB CONTAINS ADDITIONAL TEST SITE INFORMATION. Ova/Parasite Exam NO OVA, CYSTS, OR PARASITES FOUND. Normal [facility] Comment on above: Performed By: #### L 100.0100, L500.2500, L501.5200, M600.5000 ####[facility] [address] [place], [place], [id number] Absolute lymphocyte countOrd ered By: Shaheed Cortes on 01-04-2025 Lymphocytes Auto (Unsp spec) [#/Vol] 1.53 10*3/uL 0.83-4.51 [facility] Absolute neutrophil countOrd ered By: Shaheed Cortes on 01-04-2025 Neutrophils (Bld) [#/Vol] 5.1 10*3/uL 2.0-7.7 [facility] Anion gap in Serum or Plasma Ordered By: Shaheed Cortes on 01-04-2025 Anion gap [Moles/Vol] 11 mmol/L 5- [facility] Automated lymphocyte count a s percentage of total leukocytesOrdered By: Shaheed Cotres on 01-04-2025 Lymphocytes/100 WBC Auto (Unsp spec) 20.6 % [facility] BUN/creatinine ratioOrdered By: Shaheed Cortes on 01-04-2025 Urea nitrogen/Creatinine [Mass ratio] 11.8 mg/mg - [facility] Basic Metabolic Profile (BMP )on 01-04-2025 BUN/CRE 11.8 RATIO Normal 06-19 [facility] Comment on above: Performed By: #### L 100.0100, L500.2500, L501.5200, M600.5000 ####[facility] [address] [place], [address] Calcium [Mass/Vol] 9.2 mg/dL Normal 7.6-11.0 [facility] Comment on above: Performed By: #### L 100.0100, L500.2500, L501.5200, M600.5000 ####[facility] [address] [place], [address] Chloride [Moles/Vol] 105 mmol/L Normal 98-108 [facility] Comment on above: Performed By: #### L 100.0100, L500.2500, L501.5200, M600.5000 ####[facility] [address] [place], [address] CO2 [Moles/Vol] 23.6 mmol/L Normal 21.0-32.0 [facility] Comment on above: Performed By: #### L 100.0100, L500.2500, L501.5200, M600.5000 ####[facility] [address] [place], [address] Creatinine [Mass/Vol] 0.75 mg/dL Normal 0.70-1.20 [facility] Comment on above: Performed By: #### L 100.0100, L500.2500, L501.5200, M600.5000 ####[facility] [address] [place], [address] ECRCL 70.81 ml/min Normal 50-250 [facility] Comment on above: Performed By: #### L 100.0100, L500.2500, L501.5200, M600.5000 ####[facility] [address] [place], [address] GAP 11 Normal 5-15 [facility] Comment on above: Performed By: #### L 100.0100, L500.2500, L501.5200, M600.5000 ####[facility] [address] [place], [address] GFR/1.73 sq M.predicted among non-blacks MDRD (S/P/Bld) [Vol rate/Area] 93 mL/min/{1.73_m2} Normal >60 [facility] Comment on above: Result Comment: mL/m in/1.73m2 CKD-EPI Creatinine Equation (2020) Performed By: #### L 100.0100, L500.2500, L501.5200, M600.5000 ####[facility] [address] [place], [address] Glucose [Mass/Vol] 108 mg/dL High 70-99 [facility] Comment on above: Performed By: #### L 100.0100, L500.2500, L501.5200, M600.5000 ####[facility] [address] [place], [address] Potassium [Moles/Vol] 3.3 mmol/L Normal 3.3-5.1 [facility] Comment on above: Performed By: #### L 100.0100, L500.2500, L501.5200, M600.5000 ####[facility] [address] [place], [address] Sodium [Moles/Vol] 140 mmol/L Normal 133-145 [facility] Comment on above: Performed By: #### L 100.0100, L500.2500, L501.5200, M600.5000 ####[facility] [address] [place], [address] Urea nitrogen [Mass/Vol] 9 mg/dL Normal 4-19 [facility] Comment on above: Performed By: #### L 100.0100, L500.2500, L501.5200, M600.5000 ####[facility] [address] [place], [address] Basophil percentageOrdered B y: Shaheed Cortes on 01-04-2025 Basophils/100 WBC (Bld) 1.2 % High 0-1 [facility] Bilirubin Test strip Ql (U)O rdered By: Shaheed Cortes on 01-04-2025 Bilirubin Ql (U) Negative Negative [facility] C. difficile DNA LYNN+probe Q l (Unsp spec)Ordered By: Shaheed Cortes on 01-04-2025 Clostridioides difficile (PCR) [facility] CBC W/Diff, Automatedon Absolute Lymph 1.53 X10 3/uL Normal 0.83-4.51 [facility] Comment on above: Performed By: #### L 100.0100, L500.2500, L501.5200, M600.5000 ####[facility] [address] [place], [address] Absolute Neut 5.1 X10 3/uL Normal 2.0-7.7 [facility] Comment on above: Performed By: #### L 100.0100, L500.2500, L501.5200, M600.5000 ####[facility] [address] [place], [address] Basophils/100 WBC (Bld) 1.2 % High 0-1 [facility] Comment on above: Performed By: #### L 100.0100, L500.2500, L501.5200, M600.5000 ####[facility] [address] [place], [address] Eosinophils/100 WBC (Bld) 2.0 % Normal 0-5 [facility] Comment on above: Performed By: #### L 100.0100, L500.2500, L501.5200, M600.5000 ####[facility] [address] [place], [address] Erythrocyte distribution width (RBC) [Ratio] 13.3 % Normal 11.6-14.6 [facility] Comment on above: Performed By: #### L 100.0100, L500.2500, L501.5200, M600.5000 ####[facility] [address] [place], [address] Hematocrit (Bld) [Volume fraction] 36.8 % Low 37-47 [facility] Comment on above: Performed By: #### L 100.0100, L500.2500, L501.5200, M600.5000 ####[facility] [address] [place], [address] Hemoglobin (Bld) [Mass/Vol] 12.7 g/dL Normal 12.0-15.0 [facility] Comment on above: Performed By: #### L 100.0100, L500.2500, L501.5200, M600.5000 ####[facility] [address] [place], [address] IG% 0.100 Normal 0.0-0.9 [facility] Comment on above: Result Comment: IG% - Immature Granulocytes (promyelocytes, myelocytes and metamyelocytes) > 1% indicates that a LEFT SHIFT is Present. Performed By: #### L 100.0100, L500.2500, L501.5200, M600.5000 ####[facility] [address] [place], [address] Lymphocytes/100 WBC (Bld) 20.6 % Normal 19-41 [facility] Comment on above: Performed By: #### L 100.0100, L500.2500, L501.5200, M600.5000 ####[facility] [address] [place], [address] MCH (RBC) [Entitic mass] 28.7 pg Normal 27.0-32.0 [facility] Comment on above: Performed By: #### L 100.0100, L500.2500, L501.5200, M600.5000 ####[facility] [address] [place], [address] MCHC (RBC) [Mass/Vol] 34.5 g/dL Normal 32-36 [facility] Comment on above: Performed By: #### L 100.0100, L500.2500, L501.5200, M600.5000 ####[facility] [address] [place], [address] MCV (RBC) [Entitic vol] 83.3 fL Normal 81-99 [facility] Comment on above: Performed By: #### L 100.0100, L500.2500, L501.5200, M600.5000 ####[facility] [address] [place], [address] Monocytes/100 WBC (Bld) 7.8 % Normal 0-10 [facility] Comment on above: Performed By: #### L 100.0100, L500.2500, L501.5200, M600.5000 ####[facility] [address] [place], [address] Neutrophils/100 WBC (Bld) 68.3 % Normal 47-70 [facility] Comment on above: Performed By: #### L 100.0100, L500.2500, L501.5200, M600.5000 ####[facility] [address] [place], [address] Nucleated RBC (Bld) [#/Vol] 0 10*3/uL Normal 0-5 [facility] Comment on above: Performed By: #### L 100.0100, L500.2500, L501.5200, M600.5000 ####[facility] [address] [place], [address] Platelet mean volume (Bld) [Entitic vol] 9.0 fL Normal 6.2-12.0 [facility] Comment on above: Performed By: #### L 100.0100, L500.2500, L501.5200, M600.5000 ####[facility] [address] [place], [address] Platelets (Bld) [#/Vol] 331 10*3/uL Normal 150-450 [facility] Comment on above: Performed By: #### L 100.0100, L500.2500, L501.5200, M600.5000 ####[facility] [address] [place], [address] RBC (Bld) [#/Vol] 4.42 10*6/uL Normal 4.2-5.4 [facility] Comment on above: Performed By: #### L 100.0100, L500.2500, L501.5200, M600.5000 ####[facility] [address] [place], [address] RDW SD 41.0 fl Normal 35.1-43.9 [facility] Comment on above: Performed By: #### L 100.0100, L500.2500, L501.5200, M600.5000 ####[facility] [address] [place], [address] WBC (Bld) [#/Vol] 7.4 10*3/uL Normal 4.4-11.0 [facility] Comment on above: Performed By: #### L 100.0100, L500.2500, L501.5200, M600.5000 ####[facility] [address] [place], [address] CDIFF (PCR)on 01-04-2025 CDIFF New/unexplained onset of 3 or more stools in past 24 hrs? Y A positive C. difficile molecular test does not differentiate between an active C. difficile infection and C. difficile colonization. Use clinical judgement and paired toxin/antigen testing to identify true infection and need for treatment. C diff DNA Spec Ql LYNN+probe Reference Range: Negative CepJintronixid GeneXpert: polymerase chain reaction (PCR) 027 027 NAP1-B1 Presumptive Negative *for epidemiolologic???us e C. Diff PCR A Positive-Toxigenic C. Difficile Detected A Normal [facility] Comment on above: Performed By: #### M 100.9396, M100.637, M100.0605, M100.6795 #### [facility] [address] [place], [place], [id number] Carbon dioxide, total [Moles /volume] in Central venous bloodOrdered By: Shaheed Cortes on 01-04-2025 CO2 [Moles/Vol] 23.6 mmol/L 21.0-32.0 [facility] Chloride assayOrdered By: Melly Cortes on 01-04-2025 Chloride [Moles/Vol] 105 mmol/L 98-108 [facility] Clostridium Diff Toxin/Agon 01-04-2025 CDIFF (EIA) New/unexplained onset of 3 or more stools in past 24 hrs? Y Interpretation of C. diff by EIA Method Negative for toxigenic C. difficile, or below limit of detection. C. difficile Antigen Negative C. diff A/B Antigen C. difficile Toxin Negative C. diff Toxin Normal [facility] Comment on above: Performed By: #### M 100.6796, M100.637, M100.0605, M100.6795 #### [facility] [address] [place], [place], [address] Clostridium difficile detect ion by polymerase chain reactionOrdered By: Shaheed Cortes on 01-04-2025 C. difficile DNA LYNN+probe Ql (Unsp spec) [facility] ENTERIC PATHOGEN PANEL STOOL on 01-04-2025 EP PANEL New/unexplained onset of 3 or more stools in past 24 hrs? Y Normal Reference Range = Not Detected Not detected for Campylobacter group, Salmonella species, Shigella species, Vibrio Group, Yersinia enterocolitica, EHEC (Shiga Toxin 1, Shiga Toxin 2), Norovirus Gl/Gll, and Rotavirus A. Other common stool pathogens are not detected on this panel include: Aeromonas/Plesiomona s or parasites. Order testing for these organisms separately if suspected. This is an amplified DNA test which makes it both specific and sensitive. CAMPYLOBACTER Not Detected Norovirus Not Detected Rotavirus Not Detected Salmonella Not Detected Shiga Toxin Not Detected Shigella sp. Not Detected VIBRIO Not Detected Yersinia Not Detected Normal [facility] Comment on above: Performed By: #### M 100.6796, M100.637, M100.0605, M100.6795 #### [facility] [address] [place], [address] Emergency Department Summary on 01-04-2025 Emergency Department Summary [facility] Medical Records Department [address] [place] [address] Emergency Department Summary 01/04/25 MR#: [id number] Acct: [id number] Name: JENNA VALADEZ Rep #: [id number] : 1970 54 From: Shaheed Cortes DO PCP: Elena Isbell CAGE MANAGER-C Status:REG ER Location: ED HPI History of Present Illness Chief Complaint: Diarrhea Informant: patient Narrative Narrative: Patient is a 54-year-old female who reports a past medical history of appendicitis leading to sepsis and requiring prolonged IV antibiotics in October of this year. She states following that she developed diffuse diarrhea and was diagnosed with C. difficile. She states she took her antibiotic and finished it roughly 2 to 3 weeks ago. She states her stool has been loose but has been overall improving. She denies any fevers or chills or known sick contact. She states that there is been no recent travel outside the country and she denies any livestock exposure. She reports that she went to bed normally and then awoke around 2 in the morning with abdominal cramping and had 3 bouts of watery diarrhea. She states she is concerned for a repeat C. difficile infection and therefore comes in for evaluation [facility] Home Medications ???Medication ???Instructions ???Recorded ???Last Taken ???Type inhalational spacing device ##1 12/20/19 Unknown Rx duloxetine 20 mg capsule,delayed 20 mg PO DAILY 01/04/25 Unknown Hi story release (Cymbalta) vancomycin 125 mg capsule 125 mg PO Q6H 10 days #40 caps 03/24 Unknown Rx Allergy/AdvReac Type Severity Reaction Status Date / Time No Known Allergies Allergy Verified 01/04/25 04:34 Surgical History (Updated 01/04/25 @ 04:38 by Marci Waldrop) Hx of appendectomy Social History (Updated 06/15/20 @ 13:36 by Eduardo COSME, CARMELINA) Smoking Status: Current every day smoker tobacco type: cigarettes ROS ROS ED Constitutional Constitutional ED: Denies chills or fever(s) ENT ENT ED: Denies sore throat Cardiovascular Cardiovascular: Denies chest pain Respiratory/Chest Respiratory/Chest: Denies cough or dyspnea Gastrointestinal Gastrointestinal: Reports abdominal pain and diarrhea; Denies nausea or vomiting Genitourinary Genitourinary ED: Reports dysuria Musculoskeletal Musculoskeletal: Denies back pain or myalgias Integumentary Denies rash Neurologic Neurologic: Denies headache(s) Hematologic/Lymphati c Hematologic/Lymphati c: Denies easy bleeding or easy bruising EXAM Physical Exam Const Vital Signs: 01/04/25 04:35 01/04/25 04:36 01/04/25 05:30 Temperature 97.9 F 97.7 F L 98.5 F Temperature Source Oral Oral Oral Pulse Rate 96 91 79 Respiratory Rate 18 18 18 Blood Pressure 141/75 H 141/75 H 115/68 Blood Pressure Mean 97 97 83 Pulse Ox 100 100 98 Oxygen Delivery Method Room Air Room Air Room Air Positive well nourished and well developed General Appearance ED: well developed; Negative for pallor HEENT Reports moist mucous membranes HEENT Narrative: No tongue or lip swelling no oral lesions no airway edema or compromise No secondary findings in the posterior pharynx to suggest infection Eyes PERRL and EOMs intact bilaterally General Eye ED: Negative for scleral icterus Neck supple Resp normal respiratory effort and clear to auscultation bilaterally Cardio regular rate and regular rhythm GI non-distended and no masses GI Narrative: Abdomen is soft and nondistended. There is mild diffuse pain with palpation along the lower abdomen. Bowel sounds are hyperactive. There is no voluntary guarding or rigidity or pulsatile mass. No peritoneal signs Auscultation: hyperactive bowel sounds Palpation: soft Back/Spine no CVA tenderness Extremity normal to inspection Neuro oriented x3, CN's II-XII intact bilaterally and no sensory deficits noted Sensorium / Orientation: alert Motor Exam: strength 5/5 throughout Psych mental status grossly normal Skin no rashes or lesions noted and skin turgor normal General Skin Exam: Negative for jaundice or pallor MDM MDM MDM Narrative Medical decision making narrative: Patient arrived to the ER with stable vitals and a soft nonsurgical abdomen. She reported sudden onset of watery diarrhea beginning around 2 in the morning. She does not have any recent risk f actors such as travel outside the country recent hospitalization or livestock exposure to suggest infectious diarrhea such as Salmonella E. coli or Shigella. With her recent history of C. difficile there is concern for repeat infection however and as she reports mild dysuria there is potential for UTI. Patient's white count is normal her neutrophil count is normal going against systemic infection. There are no signs of acute kidney injury or clinically significant electr (more content not included)... Normal [facility] Eosinophil percentageOrdered By: Shaheed Cortes on 01-04-2025 Eosinophils/100 WBC (Bld) 2.0 % 0-5 [facility] Epithelial cells.squamous LM Ql (Urine sed)Ordered By: Shaheed Cortes on 01-04-2025 Epithelial cells.squamous LM.HPF (Urine sed) [#/Area] 0 /[HPF] 5-10 [facility] Erythrocyte distribution wid th (RBC) [Ratio]Ordered By: Shaheed Cortes on 01-04-2025 Erythrocyte distribution width (RBC) [Entitic vol] 41.0 fL 35.1-43.9 [facility] Erythrocyte distribution wid th ratioOrdered By: Shaheed Cortes on 01-04-2025 Erythrocyte distribution width (RBC) [Ratio] 13.3 % 11.6-14.6 [facility] Erythrocyte distribution wid th standard deviationOrdered By: Shaheed Cortes on 01-04-2025 Erythrocyte distribution width (RBC) [Ratio] 41.0 fl 35.1-43.9 [facility] Estimation of creatinine juliano aranceOrdered By: Shaheed Cortes on 01-04-2025 Estimated Creatinine Clearance Calc 70.81 ml/min 50-250 [facility] GFR/1.73 sq M.predicted basim g non-blacks MDRD (S/P/Bld) [Vol rate/Area]Ordered By: Shaheed Cortes on 01-04-2025 Estimated GFR (MDRD) Non-Af Amer 93 >60 [facility] Comment on above: mL/min/1.73m2 CKD-EP I Creatinine Equation (2020) Glomerular filtration rate ( GFR) estimation/1.73 sq m using serum, plasma, or whole bOrdered By: Shaheed Cortes on 01-04-2025 GFR/1.73 sq M.predicted among non-blacks MDRD (S/P/Bld) [Vol rate/Area] 93 mL/min/{1.73_m2} >60 [facility] Comment on above: mL/min/1.73m2 CKD-EP I Creatinine Equation (2020) Glucose Ql (U)Ordered By: Melly Cortes on 01-04-2025 Urine Glucose (UA) Normal mg/dl Normal [facility] Hematocrit Auto (Bld) [Volum e fraction]Ordered By: Shaheed Cortes on 01-04-2025 Hematocrit (Bld) [Volume fraction] 36.8 % Low 37-47 [facility] Hemoglobin measurementOrdere d By: Shaheed Cortes on 01-04-2025 Hemoglobin (Bld) [Mass/Vol] 12.7 g/dL 12.0-15.0 [facility] Immature granulocytes/100 WB C Auto (Bld)Ordered By: Shaheed Cortes on 01-04-2025 Immature granulocytes/100 WBC (Bld) 0.100 % 0.0-0.9 [facility] Comment on above: IG% - Immature Granu locytes (promyelocytes, myelocytes and metamyelocytes) > 1% indicates that a LEFT SHIFT is Present. Ketones Test strip Ql (U)Ord ered By: Shaheed Cortes on 01-04-2025 Ketones Ql (U) Negative Negative [facility] Lactoferrin IA Ql (Stl)Order ed By: Shaheed Cortes on 01-04-2025 Stool Lactoferrin [facility] Lymphocytes Auto (Unsp spec) [#/Vol]Ordered By: Shaheed Cortes on 01-04-2025 Lymphocytes (Bld) [#/Vol] 1.53 10*3/uL 0.83-4.51 [facility] Lymphocytes/100 WBC Auto (Un sp spec)Ordered By: Shaheed Cortes on 01-04-2025 Lymphocytes/100 WBC (Bld) 20.6 % 19-41 [facility] MCV (mean corpuscular volume ) determinationOrdered By: Shaheed Cortes on 01-04-2025 MCV (RBC) [Entitic vol] 83.3 fL 81-99 [facility] Magnesiumon 01-04-2025 Magnesium [Mass/Vol] 1.8 mg/dL Normal 1.5-2.2 [facility] Comment on above: Performed By: #### L 100.0100, L500.2500, L501.5200, M600.5000 ####[facility] [address] [place], [address] Magnesium (Unsp spec) [Mass/ Vol]Ordered By: Shaheed Cortes on 01-04-2025 Magnesium [Mass/Vol] 1.8 mg/dL 1.5-2.2 [facility] Magnesium measurement (mass/ volume)Ordered By: Shaheed Cortes on 01-04-2025 Magnesium (Unsp spec) [Mass/Vol] 1.8 mg/dL 1.5-2.2 [facility] Mean corpuscular hemoglobin (MCH) determinationOrdered By: Shaheed Cortes on 01-04-2025 MCH (RBC) [Entitic mass] 28.7 pg 27.0-32.0 [facility] Mean corpuscular hemoglobin concentration (MCHC) determinationOrdered By: Shaheed Cortes on 01-04-2025 MCHC (RBC) [Mass/Vol] 34.5 g/dL 32-36 [facility] Mean platelet volume determi nationOrdered By: Shaheed Cortes on 01-04-2025 Platelet mean volume (Bld) [Entitic vol] 9.0 fL 6.2-12.0 [facility] Microscopic analysis of urin e for red blood cells (RBC)Ordered By: Shaheed Cortes on 01-04-2025 Microscopic analysis of urine for red blood cells (RBC) 0 SEEN /hpf 0-5 [facility] Urine RBC 0 SEEN /hpf 0-5 [facility] Monocyte percentageOrdered B y: Shaheed Cortes on 01-04-2025 Monocytes/100 WBC (Bld) 7.8 % 0-10 [facility] Mucus LM Ql (Urine sed)Order ed By: Shaheed Cortes on 01-04-2025 Mucus Ql (Urine sed) 0 SEEN /hpf [facility] Neutrophil percentageOrdered By: Shaheed Cortes on 01-04-2025 Neutrophils/100 WBC (Bld) 68.3 % 47-70 [facility] Nitrite Test strip Ql (U)Ord ered By: Shaheed Cortes on 01-04-2025 Nitrite Ql (U) Negative Negative [facility] Nucleated red blood cell per centageOrdered By: Shaheed Cortes on 01-04-2025 Nucleated RBC/100 WBC (Bld) [Ratio] 0 % 0-5 [facility] Platelet countOrdered By: Melly Cortes on 01-04-2025 Platelets (Bld) [#/Vol] 331 10*3/uL 150-450 [facility] Potassium (Unsp spec) [Mass/ Vol]Ordered By: Shaheed Cortes on 01-04-2025 Potassium [Moles/Vol] 3.3 mmol/L 3.3-5.1 [facility] Potassium measurement (mass/ volume)Ordered By: Shaheed Cortes on 01-04-2025 Potassium (Unsp spec) [Mass/Vol] 3.3 mmol/L 3.3-5.1 [facility] Protein Test strip Ql (U)Ord ered By: Shaheed Cortes on 01-04-2025 Protein Ql (U) 15 mg/dl High Negative [facility] RBC Auto (Bld) [#/Vol]Ordere d By: Shaheed Cortes on 01-04-2025 RBC (Bld) [#/Vol] 4.42 10*6/uL 4.2-5.4 [facility] Serum creatinine measurement (mass/volume)Ordered By: Shaheed Cortes on 01-04-2025 Creatinine [Mass/Vol] 0.75 mg/dL 0.70-1.20 [facility] Serum glucose measurement (m ass/volume)Ordered By: Shaheed Cortes on 01-04-2025 Glucose [Mass/Vol] 108 mg/dL High 70-99 [facility] Serum or plasma calcium liset urement (mass/volume)Ordered By: Shaheed Cortes on 01-04-2025 Calcium [Mass/Vol] 9.2 mg/dL 7.6-11.0 [facility] Serum or plasma urea nitroge n measurement (mass/volume)Ordered By: Shaheed Cortes on 01-04-2025 Urea nitrogen [Mass/Vol] 9 mg/dL 4-19 [facility] Sodium levelOrdered By: Michael Cortes on 01-04-2025 Sodium [Moles/Vol] 140 mmol/L 133-145 [facility] Squamous epithelial cells de tection in urine sediment by light microscopyOrdered By: Shaheed Cortes on 01-04-2025 Epithelial cells.squamous LM Ql (Urine sed) 0-5 SEEN /hpf 5-10 [facility] Stool Clostridium difficile detectionOrdered By: Shaheed Cortes on 01-04-2025 C. difficile Ql (Stl) [facility] Stool Lactoferrin/WBCon WBCST New/unexplained onset of 3 or more stools in past 24 hrs? Y Normal Reference Range = Negative Fecal WBC Lactoferrin Negative: No Fecal WBC Lactoferrin present Normal [facility] Comment on above: Performed By: #### M 100.6796, M100.637, M100.0605, M100.6795 #### [facility] [address] [place], [place], [id number] Stool lactoferrin detection by immunoassayOrdered By: Shaheed Cortes on 01-04-2025 Lactoferrin IA Ql (Stl) [facility] Urinalysis, Completeon 01-04 BACTERIA 1+ /hpf Normal None Seen [facility] Comment on above: Order Comment: LIONEL CTOR TO SPECIFY Performed By: #### L 400.0001 ####[facility] [address] [place], [address] EPI,SQUAMOUS 0-5 SEEN Normal 5-10 [facility] Comment on above: Order Comment: LIONEL CTOR TO SPECIFY Performed By: #### L 400.0001 ####[facility] [address] [place], [address] WBC 0-5 SEEN Normal 0-5 [facility] Comment on above: Order Comment: LIONEL CTOR TO SPECIFY Performed By: #### L 400.0001 ####[facility] [address] [place], [address] Mucus Ql (Urine sed) 0 SEEN Normal [facility] Comment on above: Order Comment: LIONEL CTOR TO SPECIFY Performed By: #### L 400.0001 ####[facility] [address] [place], [place], [address] RBC 0 SEEN Normal 0-5 [facility] Comment on above: Order Comment: LIONEL CTOR TO SPECIFY Performed By: #### L 400.0001 ####[facility] [address] [place], [place], [address] Urine blood detectionOrdered By: Shaheed Cortes on 01-04-2025 Urine Occult Blood Negative Negative [facility] Urine clarityOrdered By: Edd Cortes on 01-04-2025 Clarity (U) Clear Clear [facility] Urine color determinationOrd ered By: Shaheed Cortes on 01-04-2025 Color (U) Straw Yellow [facility] Urine glucose detectionOrder ed By: Shaheed Cortes on 01-04-2025 Glucose Ql (U) Normal mg/dl Normal [facility] Urine leukocyte esterase det ection by dipstickOrdered By: Shaheed Cortes on 01-04-2025 Leukocyte esterase Test strip Ql (U) Negative Negative [facility] Urine pHOrdered By: Shaheed rivas on 01-04-2025 pH (U) 6.0 [pH] 5.0 - 8.0 [facility] Urine sediment bacteria coun t by microscopy (number/high power field)Ordered By: Shaheed Cortes on 01-04-2025 Bacteria LM.HPF (Urine sed) [#/Area] 1 /[HPF] None Seen [facility] Urine specific gravity measu rementOrdered By: Shaheed Cortes on 01-04-2025 Specific gravity (U) [Rel density] 1.010 1.002-1.030 [facility] Urine urobilinogen measureme ntOrdered By: Shaheed Cortes on 01-04-2025 Urobilinogen Ql (U) Normal mg/dl Normal [facility] Urobilinogen Ql (U)Ordered B y: Shaheed Cortes on 01-04-2025 Urine Urobilinogen Normal mg/dl Normal [facility] White blood cell (WBC) count Ordered By: Shaheed Cortes on 01-04-2025 WBC (Bld) [#/Vol] 7.4 10*3/uL 4.4-11.0 [facility] White blood cell countOrdere d By: Shaheed Cortes on 01-04-2025 Urine WBC 0-5 SEEN /hpf 0-5 [facility] White blood cell count 0-5 SEEN /hpf 0-5 [facility] Urgent Care Visit Reporton 0 12-07-2024 Urgent Care Visit Report [facility] [address], [address] [place] [address] OFFICE VISIT Date of Service: 12/07/24 MR#: [id number] Acct: [id number] Name: JENNA VALADEZ Rep #: [id number] : 1970 Provider: CARMELINA Mendes Age/Sex: 54/F Location: [facility] Status: Signed Intake Vital Signs 12/20/19 09:06 Height 5 ft 1 in Intake Visit Reasons: PE/NON DOT/PHYSICAL/[facility] Allergies No Known Allergies Allergy (Verified 12/20/19 09:10) PFSH Social History (Updated 06/15/20 @ 13:36 by CARMELINA Tompkins) Smoking Status: Current every day smoker HPI HPI Details: JENNA VALADEZ, is a 54 F who presents to the office today for Office Procedures Physical Exam Coding PE Coding Pre-employment PE: Yes Coding Level of Care Code No Charge Diagnoses Physical exam, pre-employment Z02.1 Assessment and Plan Assessment and Plan (1) Physical exam, pre-employment: Status: Acute 12/07/24 1328 Date Damian COSME Cosigner Signature: Date (if applicable) CC: Normal [facility] ALLIED HEALTHon 12-01-2024 ALLIED HEALTH HNO ID: [id number] Author: STEVEN CHAPPELL CT Service: Radiology Author Type: Technologist Type: Allied Health Filed: 12/01/2024 10:41 Note Text: Radiology Service Progress Note DATE OF SERVICE: December 01, 2024 TIME: 10:41 AM PATIENT IDENTITY VERIFICATION COMPLETED USING TWO (2) STANDARD IDENTIFIERS: Name and Date of confirmed by patient verbally. FALL SCREENING: Has the patient had 2 falls in the last year or 1 fall with injury or currently using an Ambulatory Assistive Device (Walker, Cane, Wheelchair, Crutches, etc.)? No PATIENT GENDER DATA: Assigned female at . status: : No status: NO. PATIENT RELEVANT IMPLANT DATA REVIEWED: Not Applicable PATIENT PRESENTS WITH AN IMPLANTABLE OR ATTACHED ENGAGEMENT LIAISON: No ALLERGIES: Reviewed and unchanged CONTRAST ALLERGY: NO. EXAM: CT -CONTRAST INDUCED NEPHROPATHY RISK FACTORS: Not applicable CREATININE: Creatinine Date Value Ref Range Status 12/01/2024 0.68 0.58 - 0.96 mg/dL Final 11/21/2024 0.55 (L) 0.58 - 0.96 mg/dL Final 11/07/2024 0.54 (L) 0.58 - 0.96 mg/dL Final Estimated Glomerular Filtration Rate Date Value Ref Range Status 12/01/2024 102 >=60 mL/min/1.73m? Final Comment: Estimated Glomerular Filtration Rate (eGFR) is calculated using the 2020 CKD-EPI creatinine equation. This equation utilizes serum creatinine, sex, and age as parameters. The creatinine assay has traceable calibration to isotope dilution-mass spectrometry. Refer to KDIGO guidelines for clinical interpretation. In patients with unstable renal function, e.g. those with acute kidney injury, the eGFR may not accurately reflect actual GFR. eGFR- Date Value Ref Range Status 12/13/2020 >60 Final P.O.C.T. RESULTS: N/A December 01, 2024 TREATMENT: N/A PERIPHERAL IV DATA: Inpatient - refer to LDA documentation RADIOLOGY DEPARTMENT: CT; Exam(s) Completed: Abdomen/Pelvis SIGNATURE: HENRY Holt PATIENT NAME: Jenna Valadez DATE: December 01, 2024 TIME: 10:41 AM Normal [facility] Basic metabolic 2000 panelon 12-01-2024 Anion gap [Moles/Vol] 15 mmol/L Normal 8-15 [facility] Comment on above: Order Comment: Speci men Type: STOOL SPECIMEN Ordering Facility: [facility] Address: [address] [place] [address] Performed By: #### Nayeli SILVERIO, [id number] #### [facility] CLIA [id number] [address] [place] [address] [place] Calcium [Mass/Vol] 10.1 mg/dL Normal 8.5-10.2 [facility] Comment on above: Order Comment: Speci men Type: STOOL SPECIMEN Ordering Facility: [facility] Address: [address] [place] [address] Performed By: #### Nayeli SILVERIO, [id number] #### [facility] CLIA [id number] [address] [place] Chloride [Moles/Vol] 99 mmol/L Normal 98-107 [facility] Comment on above: Order Comment: Speci men Type: STOOL SPECIMEN Ordering Facility: [facility] Address: [address] [place] [address] Performed By: #### Nayeli SILVERIO, [id number] #### [facility] CLIA [id number] [address] [place] [address] [place] CO2 [Moles/Vol] 21 mmol/L Low 22-30 [facility] Comment on above: Order Comment: Speci men Type: STOOL SPECIMEN Ordering Facility: [facility] Address: [address] [place] [address] Performed By: #### Nayeli SILVERIO, [id number] #### [facility] CLIA [id number] [address] [place] [address] [place] Creatinine [Mass/Vol] 0.68 mg/dL Normal 0.58-0.96 [facility] Comment on above: Order Comment: Speci men Type: STOOL SPECIMEN Ordering Facility: [facility] Address: [facility] [place] [address] Performed By: #### Nayeli SILVERIO, [id number] #### [facility] CLIA [id number] [address] [place] [address] [place] Creatinine and Glomerular filtration rate.predicted panel (S/P/Bld) 102 mL/min/1.73m??? Normal >=60 [facility] Comment on above: Order Comment: Darrel parson Type: STOOL SPECIMEN Ordering Facility: [facility] Address: [address] [place] [address] Result Comment: Zara mated Glomerular Filtration Rate (eGFR) is calculated using the 2020 CKD-EPI creatinine equation. This equation utilizes serum creatinine, sex, and age as parameters. The creatinine assay has traceable calibration to isotope dilution-mass spectrometry. Refer to KDIGO guidelines for clinical interpretation. In patients with unstable renal function, e.g. those with acute kidney injury, the eGFR may not accurately reflect actual GFR. Performed By: #### Nayeli SILVERIO, [id number] #### [facility] CLIA [id number] [address] [place] [address] [place] Glucose [Mass/Vol] 94 mg/dL Normal 74-99 [facility] Comment on above: Order Comment: Darrel parson Type: STOOL SPECIMEN Ordering Facility: [facility] Address: [address] [place] [address] Result Comment: The [place] Diabetes Association (ADA) provides guidance for cutoff values for fasting glucose and random glucose. The ADA defines fasting as no caloric intake for at least 8 hours. Fasting plasma glucose results between 100 to 125 mg/dL indicate increased risk for diabetes (prediabetes). Fasting plasma glucose results greater than or equal to 126 mg/dL meet the criteria for diagnosis of diabetes. In the absence of unequivocal hyperglycemia, results should be confirmed by repeat testing. In a patient with classic symptoms of hyperglycemia or hyperglycemic crisis, random plasma glucose results greater than or equal to 200 mg/dL meet the criteria for diagnosis of diabetes. Reference: Standards of Medical Care in Diabetes 2016, [place] [employer] Association. Diabetes Care. 2016.39(Suppl 1). Performed By: #### Nayeli SILVERIO, 46858-4 #### [facility] CLIA [id number] [address] [place] [address] [place] Potassium [Moles/Vol] 3.9 mmol/L Normal 3.7-5.1 [facility] Comment on above: Order Comment: Speci men Type: STOOL SPECIMEN Ordering Facility: [facility] Address: [address] [place] [address] Performed By: #### Nayeli SILVERIO, 71043-4 #### [facility] CLIA [id number] [address] [place] Sodium [Moles/Vol] 135 mmol/L Low 136-144 [facility] Comment on above: Order Comment: Speci men Type: STOOL SPECIMEN Ordering Facility: [facility] Address: [address] [place] [address] Performed By: #### Nayeli SILVERIO, 66143-0 #### [facility] CLIA [id number] [address] [place] Urea nitrogen [Mass/Vol] 9 mg/dL Normal 7-21 [facility] Comment on above: Order Comment: Speci men Type: STOOL SPECIMEN Ordering Facility: [facility] Address: [address] [place] [address] Performed By: #### Nayeli SILVERIO, 41119-2 #### [facility] CLIA [id number] [address] [place] C diff Tox gens Stl Ql LYNN+p robeon 12-01-2024 C. difficile toxin genes LYNN+probe Ql (Stl) Positive Abnormal Negative for C. difficile toxin by PCR [facility] Comment on above: Order Comment: Speci men Type: STOOL SPECIMEN Ordering Facility: [facility] Address: [address] [place] [address] Result Comment: A po sitive PCR result may indicate C.difficile infection or colonization. The positive predictive value of this test for C.difficile infection is highest for patients with clinically significant diarrhea (>=3 unformed stools in 24h) who do not have an alternative explanation (e.g., recent receipt of laxatives). Toxin EIA testing will also be performed as recommended by IDSA clinical practice guidelines for institutions without pre-agreed criteria for specimen submission. Performed By: #### Nayeli SILVERIO, 23362-4 #### [facility] CLIA [id number] [address] [place] [address] [place] CBC W Auto Differential pane l (Bld)on 12-01-2024 Basophils (Bld) [#/Vol] 0.16 10*3/uL High [facility] Basophils/100 WBC (Bld) 0.7 % C [facility] Differential cell count method Nom (Bld) [facility] Eosinophils (Bld) [#/Vol] 0.13 10*3/uL [facility] Eosinophils/100 WBC (Bld) 0.6 % [facility] Erythrocyte distribution width (RBC) [Ratio] 13.5 % 11.5 - 15.0 % [facility] Hematocrit (Bld) [Volume fraction] 40.3 % 36.0 - 46.0 % [facility] Hemoglobin (Bld) [Mass/Vol] 13.8 g/dL 11.5 - 15.5 g/dL [facility] Immature granulocytes (Bld) [#/Vol] 0.1 10*3/uL High [facility] Immature granulocytes/100 WBC (Bld) 0.4 % [facility] Interpretation and review of laboratory results Abnormal [facility] Lymphocytes (Bld) [#/Vol] 0.97 10*3/uL Low [facility] Lymphocytes/100 WBC (Bld) 4.2 % [facility] MCH (RBC) [Entitic mass] 28.5 pg 26. 0 - 34.0 pg [facility] MCHC (RBC) [Mass/Vol] 34.2 g/dL 30.5 - 36.0 g/dL [facility] MCV (RBC) [Entitic vol] 83.1 fL 80.0 - 100.0 fL [facility] Monocytes (Bld) [#/Vol] 1.63 10*3/uL High [facility] Monocytes/100 WBC (Bld) 7.1 % C [facility] Neutrophils (Bld) [#/Vol] 20.11 10*3/uL High [facility] Neutrophils/100 WBC (Bld) 87 % [facility] Nucleated RBC (Bld) [#/Vol] [facility] Nucleated RBC/100 WBC (Bld) [Ratio] 0 % /100 WBC [facility] Platelet mean volume (Bld) [Entitic vol] 9.3 fL 9.0 - 12.7 fL [facility] Platelets (Bld) [#/Vol] 354 10*3/uL [facility] RBC (Bld) [#/Vol] 4.85 10*6/uL 3.90 - 5.2 0 m/uL [facility] WBC (Bld) [#/Vol] 23.1 10*3/uL High [facility] Basophils (Bld) [#/Vol] 0.16 10*3/uL High <0.11 [facility] Comment on above: Order Comment: Speci men Type: BLOOD SPECIMENOrdering Facility: [facility] Address: [address] [place] [address] Performed By: #### 5 7021-8 ####[facility] MILLWNCLIA [id number] [place] [address] [place] Basophils/100 WBC (Bld) 0.7 % Normal [facility]Former[facility] Comment on above: Order Comment: Speci men Type: BLOOD SPECIMENOrdering Facility: [facility] Address: [address] [place] [address] Performed By: #### 5 7021-8 ####[facility]ENTERLIA [id number] [place] [address] [place] Differential cell count method Nom (Bld) Auto Normal [facility] Comment on above: Order Comment: Speci men Type: BLOOD SPECIMENOrdering Facility: [facility] Address: [address] [place] [address] Performed By: #### 5 7021-8 ####[facility] MILLWNCLIA [id number] [place] [address] [place] Eosinophils (Bld) [#/Vol] 0.13 10*3/uL Normal <0.46 [facility] Comment on above: Order Comment: Speci men Type: BLOOD SPECIMENOrdering Facility: [facility] Address: [address] [place] [address] Performed By: #### 5 7021-8 ####[facility] MILLWNCLIA [id number] [place] [address] [place] Eosinophils/100 WBC (Bld) 0.6 % Normal [facility] Comment on above: Order Comment: Speci men Type: BLOOD SPECIMENOrdering Facility: [facility] Address: [address] [place] [address] Performed By: #### 5 7021-8 ####[facility] [id number] [place] [address] [place] Erythrocyte distribution width (RBC) [Ratio] 13.5 % Normal 11.5-15.0 [facility] Comment on above: Order Comment: Speci men Type: BLOOD SPECIMENOrdering Facility: [facility] Address: [address] [place] [address] Performed By: #### 5 7021-8 ####[facility] [id number] [place] [address] [place] Hematocrit (Bld) [Volume fraction] 40.3 % Normal 36.0-46.0 [facility] Comment on above: Order Comment: Speci men Type: BLOOD SPECIMENOrdering Facility: [facility] Address: [address] [place] [address] Performed By: #### 5 7021-8 ####[facility] [id number] [place] [address] [place] Hemoglobin (Bld) [Mass/Vol] 13.8 g/dL Normal 11.5-15.5 [facility] Comment on above: Order Comment: Speci men Type: BLOOD SPECIMENOrdering Facility: [facility] Address: [address] [place] [address] Performed By: #### 5 7021-8 ####[facility] [id number] [place] [address] [place] Immature granulocytes (Bld) [#/Vol] 0.10 10*3/uL High <0.10 [facility] Comment on above: Order Comment: Speci men Type: BLOOD SPECIMENOrdering Facility: [facility] Address: [address] [place] [address] Performed By: #### 5 7021-8 ####[facility] TESHAKEITH [id number] [place] [address] [place] Immature granulocytes/100 WBC (Bld) 0.4 % Normal [facility] Comment on above: Order Comment: Speci men Type: BLOOD SPECIMENOrdering Facility: [facility] Address: [address] [place] [address] Performed By: #### 5 7021-8 ####[facility] [id number] [place] [address] [place] Lymphocytes (Bld) [#/Vol] 0.97 10*3/uL Low 1.00-4.00 [facility] Comment on above: Order Comment: Speci men Type: BLOOD SPECIMENOrdering Facility: [facility] Address: [address] [place] [address] Performed By: #### 5 7021-8 ####[facility] [id number] [place] [address] [place] Lymphocytes/100 WBC (Bld) 4.2 % Normal [facility] Comment on above: Order Comment: Speci men Type: BLOOD SPECIMENOrdering Facility: [facility] Address: [address] [place] [address] Performed By: #### 5 7021-8 ####[facility] [id number] [place] [address] [place] MCH (RBC) [Entitic mass] 28.5 pg Normal 26.0-34.0 [facility] Comment on above: Order Comment: Speci men Type: BLOOD SPECIMENOrdering Facility: [facility] Address: [address] [place] [address] Performed By: #### 5 7021-8 ####[facility] TESHAArturNCLIA [id number] [place] [address] [place] MCHC (RBC) [Mass/Vol] 34.2 g/dL Normal 30.5-36.0 [facility] Comment on above: Order Comment: Speci men Type: BLOOD SPECIMENOrdering Facility: [facility] Address: [address] [place] [address] Performed By: #### 5 7021-8 ####[facility]CL[facility] [id number] [place] [address] [place] MCV (RBC) [Entitic vol] 83.1 fL Normal 80.0-100.[address] [facility] Comment on above: Order Comment: Speci men Type: BLOOD SPECIMENOrdering Facility: [facility] Address: [address] [place] [address] Performed By: #### 5 7021-8 ####[facility]ASTSERGIOA [id number] [place] [address] [place] Monocytes (Bld) [#/Vol] 1.63 10*3/uL High <0.87 [facility] Comment on above: Order Comment: Speci men Type: BLOOD SPECIMENOrdering Facility: [facility] Address: [address] [place] [address] Performed By: #### 5 7021-8 ####[facility] COASTSERGIOLIA [id number] [address] [place] [facility] Monocytes/100 WBC (Bld) 7.1 % Normal [facility] Comment on above: Order Comment: Speci men Type: BLOOD SPECIMENOrdering Facility: [facility] Address: [address] [place] [address] Performed By: #### 5 7021-8 ####[facility]NCLIA [id number] [place] [id number] [place] Neutrophils (Bld) [#/Vol] 20.11 10*3/uL High 1.45-7.50 [facility] Comment on above: Order Comment: Speci men Type: BLOOD SPECIMENOrdering Facility: [facility] Address: [address] [place] [address] Performed By: #### 5 7021-8 ####[facility] [id number] [place] [address] [place] Neutrophils/100 WBC (Bld) 87.0 % Normal [facility] Comment on above: Order Comment: Speci men Type: BLOOD SPECIMENOrdering Facility: [facility] Address: [address] [place] [address] Performed By: #### 5 7021-8 ####[facility] [id number] [place] [address] [place] Nucleated RBC (Bld) [#/Vol] 10*3/uL Normal <0.01 [facility] Comment on above: Order Comment: Speci men Type: BLOOD SPECIMENOrdering Facility: [facility] Address: [address] [place] [address] Performed By: #### 5 7021-8 ####[facility] [id number] [place] [address] [place] Nucleated RBC/100 WBC (Bld) [Ratio] 0.0 /100 WBC Normal [facility] Comment on above: Order Comment: Speci men Type: BLOOD SPECIMENOrdering Facility: [facility] Address: [address] [place] [address] Performed By: #### 5 7021-8 ####[facility]ASTNCLI [id number] [place] [address] [place] Platelet mean volume (Bld) [Entitic vol] 9.3 fL Normal 9.0-12.7 [facility] Comment on above: Order Comment: Speci men Type: BLOOD SPECIMENOrdering Facility: [facility] Address: [address] [place] [address] Performed By: #### 5 7021-8 ####[facility] REALNCLIA [id number] [place] [address] [place] Platelets (Bld) [#/Vol] 354 10*3/uL Normal 150-400 [facility] Comment on above: Order Comment: Speci men Type: BLOOD SPECIMENOrdering Facility: [facility] Address: [address] [place] [address] Performed By: #### 5 7021-8 ####[facility]NCL[facility] [id number] [place] [address] [place] RBC (Bld) [#/Vol] 4.85 10*6/uL Normal 3.90-5.20 [facility] Comment on above: Order Comment: Speci men Type: BLOOD SPECIMENOrdering Facility: [facility] Address: [address] [place] [address] Performed By: #### 5 7021-8 ####[facility]NCL[facility] [id number] [place] [address] [place] WBC (Bld) [#/Vol] 23.10 10*3/uL High 3.70-11.00 [facility] Comment on above: Order Comment: Speci men Type: BLOOD SPECIMENOrdering Facility: [facility] Address: [address] [place] [address] Performed By: #### 5 7021-8 ####[facility]NCL[facility] [id number] [place] [address] [place] CLOSTRIDIUM DIFFICILE TOXIN BY EIAon 12-01-2024 C. difficile toxin A+B IA Ql (Stl) Not detected Normal Negative for C. difficile toxin [facility] Comment on above: Order Comment: Speci men Type: STOOL SPECIMEN [facility] Address: [address], [place] [address] Result Comment: Toxi n EIA is less sensitive than cell cytotoxin and PCR assays. Clinical correlation of PCR positive/toxin EIA negative results is required to distinguish C. difficle colonization from disease. Performed By: #### C JEAN CLAUDE, 35262-9 #### [facility] CLIA [id number] [address] [place] [id number] [facility] CNOVon 12-01-2024 CNOV Office Visit (FAMPWS) JENNA VALADEZ ([id number]) 1970 F Date Time Provider Department 12/01/24 8:00 AM [facility] During your visit today, we recorded the following information about you: Pulse Blood pressure Weight 123/minute 102/69 56 kg Elena Isbell, MEDICAL ADMINISTRATOR.[facility] 12/01/2024 8:14 AM Signed Chief Complaint Patient presents with: Diarrhea Nausea HPI Jenna Vlaadez is a 54 year old female who presents here today for Above Complaints.. Patient presents for worsening diarrhea, nausea and chills. Patient reports last night her symptoms got significantly worse. She was on vancomycin and meropenem for abdominal wall abscess following appendectomy but this was stopped on 11/25. Her last CT on 11/24 showed no acute findings. Her PICC line was removed at that time as well. Past medical history, appointments, medications, allergies reviewed. Previous Medical History PAST MEDICAL HISTORY Diagnosis Date Anxiety Depression Emphysema lung (HCC) 08/14/2016 Hypokalemia Hypomagnesemia Low HDL (under 40) Previous Surgical History PAST SURGICAL HISTORY Procedure Laterality Date COLONOSCOPY 08/19/2016 EGD 08/19/2016 Family History FAMILY HISTORY Problem Relation Age of Onset Breast Cancer Mother Heart Maternal Grandmother Diabetes Maternal Grandmother Arthritis Maternal Uncle Breast Cancer Sister Breast Cancer Paternal Aunt Patient Allergies ALLERGIES Allergen Reactions Prozac [Fluoxetine * Other: See Comments headaches Wellbutrin [Bupropi* Other: See Comments Increased anxiety and stomach ache Current Medications Current Outpatient Medications on File Prior to Visit Medication Sig busPIRone (BUSPAR) 7.5 mg tablet Take 1 tablet by mouth three times a day. DULoxetine (CYMBALTA) 20 mg capsule Take 1 capsule by mouth once daily. diphenhydrAMINE HCL (BENADRYL ALLERGY) 50 mg tablet Take 50 mg by mouth every 12 hours. take before every Vancomycin dose vancomycin HCl in 5 % dextrose (VANCOMYCIN HCL IN DEXTROSE) 1 gram/250 mL soln Inject 1 g intravenously every 12 hours. Vancomycin 1gm IV every 12 hours x 2 weeks Infuse over 60 minutes via Control a [facility] to mix as minibag in 250mL D5W meropenem (MERREM) 1 gram injection Inject 1 g intravenously every 8 hours. Meropenem 1gm IV every 8 hours x 2 weeks Infuse over 30 minutes via [facility] Pharmacy to mix as minibag plus in 100mL NS sodium chloride (NaCl) 0.9% injection solution Inject 10 mL intravenously as directed. Flush before blood draws with 10 mL and after blood draws with 20 mL. Flush before and after each dose with 10 mL. Flush unused lumens with 10 mL daily. acetaminophen (TYLENOL) 500 mg tablet Take 2 tablets by mouth every 6 hours. albuterol HFA (PROVENTIL HFA, VENTOLIN HFA) 90 mcg/actuation inhaler Inhale 2 Puffs as instructed every 4 hours as needed for wheezing/shortness of breath. No current facility-administere d medications on file prior to visit. Social History Social History Tobacco Use Smoking status: Every Day Current packs/day: 1.00 Average packs/day: 1 pack/day for 25.0 years (25.0 ttl pk-yrs) Types: Cigarettes Smokeless tobacco: Never Vaping Use Vaping status: Never Used Substance Use Topics Alcohol use: No Drug use: Not Currently Types: Marijuana Review of Symptoms REVIEW OF SYSTEMS SEE HPI EXAM: BP 102/69 Pulse (!) 123 Wt 56 kg (123 lb 7.3 oz) LMP (LMP Unknown) BMI 23.01 kg/m? General Appearance: Well appearing, alert, in no acute distress, well-hydrated, well nourished.. Lungs: Lungs clear to auscultation. No wheezing, rhonchi, rales.. Heart: RRR without murmur, gallop, or rubs. No ectopy. Abdomen: Negative findings: no masses palpable, no organomegaly, no bruits heard, liver span normal to percussion, soft, non-tender, and spleen non-palpable, Positive findings: hypoactive bowel sounds. Health Maintenance List Hepatitis B Vaccine(1 of 3 - 19+ 3-dose series) Never done Alpha-1 Antitrypsin Deficiency Screening Never done Mammogram Screening due on 08/04/2017 Shingrix Vaccine(1 of 2) Never done Influenza Vaccine(1) due on 05/01/2024 Covid-19 Vaccine( season) due on 05/01/2024 Pneumococcal Vaccine: 50+(3 of 3 - PCV20 or PCV21) due on 11/14/2024 Hepatitis C Screening due on 01/11/2025 HIV Screening due on 01/11/2025 Spirometry due on 03/14/2025 Lung Cancer Screening due on 03/14/2025 Cervical Cancer Screening due on 03/14/2025 Annual PCP Team Chronic Disease Visit due on 11/24/2025 DTaP,Tdap,Td Vaccine(2 - Td or Tdap) due on 04/15/2026 Colorectal Cancer Screening due on 08/19/2026 Diabetes Screening due on 11/03/2027 Lipid Screening due on 01/11/2029 ASSESSMENT/PLAN: 1. Infection in abdomen (HCC) - ICD9: 567.9, ICD10: K65.9 (primary diagnosis) - CT ABD/PEL W IVCON - IV CONTRAST (RADIOLOGY PROCEDURE) - NOT (more content not included)... Normal [facility] CT ABD/PEL W IVCONon 025 CT ABD/PEL W IVCON * * *Final Report* * * DATE OF EXAM: Dec 01 2024 10:38AM [facility] 0530 - CT ABD/PEL W IVCON / PROCEDURE REASON: Diarrhea * * * * Physician Interpretation * * * * EXAMINATION: CT ABDOMEN AND PELVIS WITH IV CONTRAST CLINICAL HISTORY: Diarrhea TECHNIQUE: CT of the abdomen and pelvis was performed using standard technique, scanning from just above the dome of the diaphragm to the symphysis pubis. MQ: CTAP_3 Contrast: IV: 100 ml of Omnipaque 300 CT Radiation dose: Integrated Dose-length product (DLP) for this visit = 346.40 mGy*cm. CT Dose Reduction Employed: Automated exposure control(AEC) and iterative recon COMPARISON: CT abdomen and pelvis 11/24/2024 RESULT: Liver: No mass. Biliary: No bile duct dilation. Gallbladder is unremarkable. Spleen: No mass. No splenomegaly. Pancreas: No mass or duct dilation. Adrenals: No mass. Kidneys: Symmetric nephrograms. No hydronephrosis or nephrolithiasis. GI tract: Only mild wall thickening of the proximal small bowel in the left lung with smooth distal tapering, reflecting mild enteritis. Distal small bowel and demonstrate no recurrent thickening or obstruction. New edematous changes of the wall predominantly in the right and transverse colon and mild mucosal enhancement throughout the distal colon, reflecting acute inflammatory/infecti ous colitis. No pericolic fat stranding. Appendectomy no recurrent fluid collection in the right lower quadrant. Pseudomembranous colitis might have a similar appearance in the patient was on antibiotic therapy. Lymph nodes: No abdominal or pelvic lymphadenopathy. Mesentery/Peritoneum : No ascites or mass. Retroperitoneum: No mass. Vasculature: - Abdominal aorta and iliac arteries: No aneurysm. - Celiac and SMA: Patent without stenosis. - Portal venous system (SMV, splenic vein, portal vein and branches): Patent. - Hepatic veins: Patent. - Other: None Pelvis: No mass, ascites or fluid collection. Uterus and adnexa are unremarkable. Bones/Soft Tissues: No acute osseous abnormalities. Lower thorax: No consolidation or pleural effusion. Localizer images: No additional findings IMPRESSION: Mild proximal enteritis and diffuse colitis, likely inflammatory/infecti ous colitis. No recurrent right lower quadrant abscess or bowel obstruction. Process Improvement Manager[facility] Transcribe Date/Time: Dec 01 2024 10:43A Dictated by : VIANNEY RAINEY MD This examination was interpreted and the report reviewed and electronically signed by: VIANNEY RAINEY MD on Dec 01 2024 10:51AM EST [id number] CN Normal [facility] Comprehensive metabolic 2000 panelon 12-01-2024 Albumin [Mass/Vol] 4.6 g/dL 3.9 - 4.9 g/dL [facility] ALP [Catalytic activity/Vol] 148 U/L High 34 - 123 U/L [facility] ALT With P-5'-P [Catalytic activity/Vol] 30 U/L 7 - 38 U/L [facility] Anion gap [Moles/Vol] 16 mmol/L High 8 - 15 mmol/L [facility] AST With P-5'-P [Catalytic activity/Vol] 23 U/L 13 - 35 U/L [facility] Bilirubin [Mass/Vol] 0.4 mg/dL 0.2 - 1 .3 mg/dL [facility] Calcium [Mass/Vol] 10.2 mg/dL 8.5 - 10. 2 mg/dL [facility] Chloride [Moles/Vol] 99 mmol/L 98 - 10 7 mmol/L [facility] CO2 [Moles/Vol] 20 mmol/L Low 22 - 30 mmol/L [facility] Creatinine [Mass/Vol] 0.73 mg/dL 0.58 - 0.96 mg/dL [facility] GFR/1.73 sq M.predicted among non-blacks MDRD (S/P/Bld) [Vol rate/Area] 97 mL/min/{1.73_m2} - PINF [facility] Comment on above: Estimated Glomerular Filtration Rate (eGFR) is calculated using the 2020 CKD-EPI creatinine equation. This equation utilizes serum creatinine, sex, and age as parameters. The creatinine assay has traceable calibration to isotope dilution-mass spectrometry. Refer to KDIGO guidelines for clinical interpretation. In patients with unstable renal function, e.g. those with acute kidney injury, the eGFR may not accurately reflect actual GFR. Glucose [Mass/Vol] 106 mg/dL High 74 - 99 mg/dL [facility] Comment on above: The [place] Diabete s Association (ADA) provides guidance for cutoff values for fasting glucose and random glucose. The ADA defines fasting as no caloric intake for at least 8 hours. Fasting plasma glucose results between 100 to 125 mg/dL indicate increased risk for diabetes (prediabetes). Fasting plasma glucose results greater than or equal to 126 mg/dL meet the criteria for diagnosis of diabetes. In the absence of unequivocal hyperglycemia, results should be confirmed by repeat testing. In a patient with classic symptoms of hyperglycemia or hyperglycemic crisis, random plasma glucose results greater than or equal to 200 mg/dL meet the criteria for diagnosis of diabetes. Reference: Standards of Medical Care in Diabetes 2016, [place] [employer] Association. Diabetes Care. 2016.39(Suppl 1). Interpretation and review of laboratory results Abnormal [facility] Potassium [Moles/Vol] 4.2 mmol/L 3.7 - 5.1 mmol/L [facility] Protein [Mass/Vol] 8 g/dL 6.3 - 8.0 g/dL [facility] Sodium [Moles/Vol] 135 mmol/L Low 136 - 144 mmol/L [facility] Urea nitrogen [Mass/Vol] 10 mg/dL 7 - 21 mg/d L [facility] Albumin [Mass/Vol] 4.6 g/dL Normal 3.9-4.9 [facility] Comment on above: Order Comment: Speci men Type: BLOOD SPECIMENOrdering Facility: [facility] Address: [address] [place] [address] Performed By: #### 2 4323-8 ####[facility] LABCLIA [id number] [place] [address] [place] ALP [Catalytic activity/Vol] 148 U/L High 34-123 [facility] Comment on above: Order Comment: Speci men Type: BLOOD SPECIMENOrdering Facility: [facility] Address: [address] [place] [address] Performed By: #### 2 4323-8 ####[facility] LABCLIA [id number] [place] [address] [place] ALT With P-5'-P [Catalytic activity/Vol] 30 U/L Normal 7-38 [facility] Comment on above: Order Comment: Speci men Type: BLOOD SPECIMENOrdering Facility: [facility] Address: [address] [place] [address] Performed By: #### 2 4323-8 ####[facility] LABCLIA [id number] [place] [address] [place] Anion gap [Moles/Vol] 16 mmol/L High 8-15 [facility] Comment on above: Order Comment: Speci men Type: BLOOD SPECIMENOrdering Facility: [facility] Address: [address] [place] [address] Performed By: #### 2 4323-8 ####[facility] LABCLIA [id number] [facility] [place] [address] [place] AST With P-5'-P [Catalytic activity/Vol] 23 U/L Normal 13-35 [facility] Comment on above: Order Comment: Speci men Type: BLOOD SPECIMENOrdering Facility: [facility] Address: [address] [place] [address] Performed By: #### 2 4323-8 ####[facility] LABCLIA [id number] [facility] [address] [place] Bilirubin [Mass/Vol] 0.4 mg/dL Normal 0.2-1.3 [facility] Comment on above: Order Comment: Speci men Type: BLOOD SPECIMENOrdering Facility: [facility] [facility] Address: [address] [place] [address] Performed By: #### 2 4323-8 ####[facility] LABCLIA [id number] [facility] [address] [place] Calcium [Mass/Vol] 10.2 mg/dL Normal 8.5-10.2 [facility] Comment on above: Order Comment: Speci men Type: BLOOD SPECIMENOrdering Facility: [facility] Address: [address] [place] [address] Performed By: #### 2 4323-8 ####[facility] LABCLIA [id number] [facility] [place] [address] [place] Chloride [Moles/Vol] 99 mmol/L Normal 98-107 [facility] Comment on above: Order Comment: Speci men Type: BLOOD SPECIMENOrdering Facility: [facility] Address: [address] [place] [address] Performed By: #### 2 4323-8 ####[facility] LABCLIA [id number] [facility] [place] [address] [place] CO2 [Moles/Vol] 20 mmol/L Low 22-30 [facility] Comment on above: Order Comment: Darrel parson Type: BLOOD SPECIMENOrdering Facility: [facility] Address: [address] [place] [address] Performed By: #### 2 4323-8 ####MICHELLE RAMIREZI LABCLIA [id number] [place] [address] [place] [facility] Creatinine [Mass/Vol] 0.73 mg/dL Normal 0.58-0.96 [facility] Comment on above: Order Comment: Darrel men Type: BLOOD SPECIMENOrdering Facility: [facility] Address: [address] [place] [address] Performed By: #### 2 4323-8 ####MICHELLE RAMIREZ LABIA [id number] [place] [id number] [facility] Creatinine and Glomerular filtration rate.predicted panel (S/P/Bld) 97 mL/min/1.73m??? Normal >=60 [facility] Comment on above: Order Comment: Darrel men Type: BLOOD SPECIMENOrdering Facility: [facility] Address: [address] [place] [address] Result Comment: Zara mated Glomerular Filtration Rate (eGFR) is calculated using the 2020 CKD-EPI creatinine equation. This equation utilizes serum creatinine, sex, and age as parameters. The creatinine assay has traceable calibration to isotope dilution-mass spectrometry. Refer to KDIGO guidelines for clinical interpretation. In patients with unstable renal function, e.g. those with acute kidney injury, the eGFR may not accurately reflect actual GFR. Performed By: #### 2 4323-8 ####[facility] LABCLIA [id number] [place] [address] [place] Glucose [Mass/Vol] 106 mg/dL High 74-99 [facility] Comment on above: Order Comment: Darrel eb Type: BLOOD SPECIMENOrdering Facility: [facility] Address: [address] [place] [address] Result Comment: The [place] Diabetes Association (ADA) provides guidance for cutoff values for fasting glucose and random glucose. The ADA defines fasting as no caloric intake for at least 8 hours. Fasting plasma glucose results between 100 to 125 mg/dL indicate increased risk for diabetes (prediabetes). Fasting plasma glucose results greater than or equal to 126 mg/dL meet the criteria for diagnosis of diabetes. In the absence of unequivocal hyperglycemia, results should be confirmed by repeat testing. In a patient with classic symptoms of hyperglycemia or hyperglycemic crisis, random plasma glucose results greater than or equal to 200 mg/dL meet the criteria for diagnosis of diabetes. Reference: Standards of Medical Care in Diabetes 2016, [place] Diabetes Association. Diabetes Care. 2016.39(Suppl 1). Performed By: #### 2 4323-8 ####[facility] LABCLIA [id number] [place] [address] [place] Potassium [Moles/Vol] 4.2 mmol/L Normal 3.7-5.1 [facility] Comment on above: Order Comment: Darrel parson Type: BLOOD SPECIMENOrdering Facility: [facility] Address: [address] [place] [address] Performed By: #### 2 4323-8 ####[facility] LABCLIA [id number] [place] [address] [place] Protein [Mass/Vol] 8.0 g/dL Normal 6.3-8.0 [facility] Comment on above: Order Comment: Darrel parson Type: BLOOD SPECIMENOrdering Facility: [facility] Address: [address] [place] [address] Performed By: #### 2 4323-8 ####[facility] LABCLIA [id number] [place] [address] [place] Sodium [Moles/Vol] 135 mmol/L Low 136-144 [facility] Comment on above: Order Comment: Regii eb Type: BLOOD SPECIMENOrdering Facility: [facility] Address: [address] [place] [address] Performed By: #### 2 4323-8 ####[facility] LABCLIA [id number] [place] [address] [place] Urea nitrogen [Mass/Vol] 10 mg/dL Normal 7-21 [facility] Comment on above: Order Comment: Speci men Type: BLOOD SPECIMENOrdering Facility: [facility] Address: [facility] [place] [id number] Performed By: #### 2 4323-8 ####[facility] J[facility] [id number] [place] [address] [facility] ED NOTEon 12-01-2024 ED NOTE HNO ID: [id number] Author: SAMANTHA PARK RN Service: ? Author Type: Registered Nurse Type: ED Notes Filed: 12/01/2024 13:43 Note Text: Discharge instructions and recommendation for admission reviewed. Pt continues to decline admission. Agrees to return to ED if she changes mind or condition worsens. Normal [facility] ED NOTE HNO ID: [id number] Author: SAMANTHA PARK RN Service: ? Author Type: Registered Nurse Type: ED Notes Filed: 12/01/2024 09:04 Note Text: Pt arrives with steady gait to ED bed 8 States diarrhea for for couple days States finished IV antibiotics approx 1 week ago which she had home health infusing due to ruptured appendix/abdominal abscess CT scheduled for 2pm today but states there's no point waiting at home for it and not feeling well Normal [facility] ED PROV NOTEon 12-01-2024 ED PROV NOTE HNO ID: [id number] Author: ADRIAN WISE MD Service: Emergency Medicine Author Type: Physician Type: ED Provider Notes Filed: 12/01/2024 16:37 Note Text: ED Provider Note Patient Name: Jenna Valadez : 1970 SERVICE DATE: 12/01/24 History Patient presents with: Diarrhea Jenna Valadez is a 54 year old female with history of appendectomy October 24 subsequent postop abscess with IV antibiotics who presents with diarrhea. Patient states there is abdominal pain present with the diarrhea and reports 10 or more episodes over the last 24 hours. - Symptoms began several days ago. Onset was gradual, and symptoms are constant. - Severity: moderate - Quality: Multiple nonbloody watery brown stools and abdominal cramping - Timing: intermittent - Symptoms are associated with feeling weak and lightheaded today. - Symptoms are not associated with chills and fever. - Improved by nothing. - Not improved by rest. - Risk factors: Recent IV antibiotic treatment for right lower quadrant abscess Patient had appendectomy done October 24, 2024 but then developed a right lower quadrant abscess patient had IV antibiotics finish this up about a week ago but now he has diarrhea. She does get crampy abdominal pain with the diarrhea but no pain like she had with her appendicitis. She saw her primary care today had a white count electrolytes ordered along with a outpatient CT scan she had a order for a C. difficile test. She came to the emergency department not wanting to wait on the outpatient CT because she is feeling generally weak and not well. Reporting some lightheadedness when she stands. PAST MEDICAL HISTORY Diagnosis Date - Anxiety - Depression - Emphysema lung (HCC) 08/14/2016 - Hypokalemia - Hypomagnesemia - Low HDL (under 40) PAST SURGICAL HISTORY Procedure Laterality Date - COLONOSCOPY 08/19/2016 - EGD 08/19/2016 FAMILY HISTORY Problem Relation Age of Onset - Breast Cancer Mother - Heart Maternal Grandmother - Diabetes Maternal Grandmother - Arthritis Maternal Uncle - Breast Cancer Sister - Breast Cancer Paternal Aunt Social History Tobacco Use - Smoking status: Every Day Current packs/day: 1.00 Average packs/day: 1 pack/day for 25.0 years (25.0 ttl pk-yrs) Types: Cigarettes - Smokeless tobacco: Never Vaping Use - Vaping status: Never Used Substance and Sexual Activity - Alcohol use: No - Drug use: Not Currently Types: Marijuana - Sexual activity: Yes ALLERGIES Allergen Reactions - Prozac [Fluoxetine * Other: See Comments headaches - Wellbutrin [Bupropi* Other: See Comments Increased anxiety and stomach ache Review of Systems Constitutional: Positive for fatigue. Negative for chills and fever. HENT: Negative for congestion and sore throat. Respiratory: Negative for cough and shortness of breath. Cardiovascular: Negative for chest pain and palpitations. Gastrointestinal: Positive for abdominal pain and diarrhea. Negative for abdominal distention, nausea and vomiting. Allergic/Immunologic : Negative for environmental allergies, food allergies and immunocompromised state. Neurological: Positive for light-headedness. Negative for syncope. Physical Exam Vitals [12/01/24 0859] BP Pulse Temp Temp src Resp SpO2 Weight Height 114/73 (!) 101 36.3 ?C (97.3 ?F) Temporal 16 100 % 55.8 kg (123 lb) -- Physical Exam Constitutional: General: She is not in acute distress. Appearance: Normal appearance. She is not ill-appearing, toxic-appearing or diaphoretic. HENT: Head: Normocephalic and atraumatic. Cardiovascular: Rate and Rhythm: Normal rate and regular rhythm. Pulmonary: Effort: Pulmonary effort is normal. No respiratory distress. Abdominal: Palpations: Abdomen is soft. Tenderness: There is no abdominal tenderness. There is no guarding or rebound. Musculoskeletal: General: No swelling or tenderness. Cervical back: Normal range of motion and neck supple. Skin: General: Skin is warm and dry. Findings: No rash. Neurological: General: No focal deficit present. Mental Status: She is alert and oriented to person, place, and time. Psychiatric: Mood and Affect: Mood normal. Behavior: Behavior normal. Thought Content: Thought content normal. Judgment: Judgment normal. Diagnostic Testing ED Labs Ordered and Reviewed - No data to display Procedures ED Course / Clinical Impression Clinical Impressions as of 12/01/24 1637 Colitis Leukocytosis, unspecified type MDM / Disposition / Plan Patient already has stool for enteric pathogen's ordered I worried PCR for C. difficile. White count was 25,000 today but nonacute abdomen CT scan imaging did not show any acute abscess but there is some enteritis colitis findings. Suspicious for C. difficile colitis based on her history recent antibiotic treatment. Patient was given 1 dose of Toradol for discomfort but she does not have (more content not included)... Normal [facility] 25([place])D3 [facility] 25-hydroxyvitamin D3 [Mass/Vol] 24.4 ng/mL Low 31.0-80.0 [facility] Comment on above: Order Comment: Speci men Type: BLOOD SPECIMENOrdering Facility: [facility] Address: [address] [place] [address] [place] [address] Performed By: #### 1 989-3 ####[facility] LABCLIA [id number] [place] [address] [place] Estradiol [facility]Pl[facility] 11-28 E2 [Mass/Vol] pg/mL Normal [facility] Comment on above: Order Comment: Speci men Type: BLOOD SPECIMENOrdering Facility: [facility] Address: [address] [place] [address] Result Comment: This test is not suitable for patients receiving treatment with the drug Fulvestrant (Faslodex). The drug causes an interference leading to falsely elevated estradiol results. Menstrual cycle Estradiol reference ranges: Follicular : < 234 pg/mL Ovulation : 41 to 398 pg/mL Luteal : < 342 pg/mL Estradiol reference ranges vary by gestational period: First trimester : 154 to 3243 pg/mL Second trimester : 1561 to 69103 pg/mL Third trimester : 8285 to >56345 pg/mL Post-menopausal Estradiol reference range: < 41 pg/mL Reference: 1. Estradiol - E2 (Estradiol III) [package insert V 3.0 [place]]. [employer], [place], [place], January 2016. Performed By: #### 3 051-0, 3024-7, 3016-3, 2243-4 ####[facility] LABIA [id number] [place] [address] [place] POTASSIUMon 11-28-2024 Potassium [Moles/Vol] 3.7 mmol/L Normal 3.7-5.1 [facility] Comment on above: Order Comment: Speci men Type: BLOOD SPECIMENOrdering Facility: [facility] Address: [address] [place] [address] Performed By: #### K 1 ####[facility] LABIA [id number] [place] [address] [place] T3Free SerPl-mCncon 11-29-19 25 Free T3 [Mass/Vol] 3.2 pg/mL Normal 2.3-4.1 [facility] Comment on above: Order Comment: Speci men Type: BLOOD SPECIMENOrdering Facility: [facility] Address: [address] [place] [address] Performed By: #### 3 051-0, 3024-7, 3016-3, 2243-4 ####[facility] LABCLIA [id number] [place] [address] [place] T4 Free SerPl-mCncon 025 Free T4 [Mass/Vol] 1.1 ng/dL Normal 0.9-1.7 [facility] Comment on above: Order Comment: Speci men Type: BLOOD SPECIMENOrdering Facility: [facility] Address: [address] [place] [address] Performed By: #### 3 051-0, 3024-7, 3016-3, 2243-4 ####[facility] LABCLIA [id number] [place] [address] [place] TESTOSTERONE, FREE AND TOTAL , BY EQUILIBRIUM ULTRAFILTRATION MASS SPECTROMETRYon 11-28-2024 Testosterone [Mass/Vol] 29.7 ng/dL Normal [facility] Comment on above: Order Comment: Speci men Type: BLOOD SPECIMENOrdering Facility: [facility] Address: [address] [place] [address] Result Comment: Fema le: Premenopausal 10.0 - 55.0 Postmenopausal 7.0 - 40.0 Performed By: #### T FTEST ####[facility] LABCLIA [id number] [place] [address] Testosterone Free [Mass/Vol] 0.48 ng/dL Normal 0.10-0.85 [facility] Comment on above: Order Comment: Speci men Type: BLOOD SPECIMENOrdering Facility: [facility] Address: [address] [place] [address] Performed By: #### T FTEST ####[facility] LABCLIA [id number] [place] [address] Testosterone Free/Testosterone.total [Mass fraction] 1.63 % Normal 0.50-2.80 [facility] Comment on above: Order Comment: Speci men Type: BLOOD SPECIMENOrdering Facility: [facility] Address: [address] [place] [address] Performed By: #### T FTEST ####[facility] LABCLIA [id number] [place] [address] THYROID PEROXIDASE ANTIBODYo n 11-28-2024 TPO Ab Qn [IU]/mL Normal <5.6 [facility] Comment on above: Order Comment: Darrel parson Type: BLOOD SPECIMENOrdering Facility: [facility] Address: [address] [place] [address] Result Comment: Thyr oid Peroxidase Antibody test is used as an aid in diagnosis of autoimmune thyroid disease. Clinical correlation is required. Performed By: #### M ICRO ####[facility] LABIA [id number] [address] [place] TSH SerPl-aCncon 11-28-2024 TSH Qn 0.900 m[IU]/L Normal 0.270-4.200 [facility] Comment on above: Order Comment: Darrel parson Type: BLOOD SPECIMENOrdering Facility: [facility] Address: [address] [place] [address] Performed By: #### 3 051-0, 3024-7, 3016-3, 2243-4 ####[facility] LABCLIA [id number] [address] OF [facility] CNPNon 11-27-2024 CNPN Telephone (HCSIND) JENNA VALADEZ ([id number]) 1970 F Date Time Provider Department 11/27/24 MOHSEN VILLEGAS During your visit today, we recorded the following information about you: Mohsen Villegas RN 11/27/2024 10:40 AM Signed Patient completed IV antibiotics and skilled nurse pulled PICC line during home care visit yesterday (11/26/2024). Patient requested discharge from home nursing services. Patient has no further home care needs at this time. Thank you for the referral, Mohsen- director of email marketing Harlan Dominguez MD 11/28/2024 3:05 PM Signed Reviewed. Allergies As of Date: 11/27/2024 Noted Allergy Reaction PROZAC (FLUOXETINE HCL) 06/11/2015 14 - Other: See Comments Comments: headaches WELLBUTRIN (BUPROPION HCL) 12/19/2019 14 - Other: See Comments Comments: Increased anxiety and stomach ache Date Reviewed: 11/26/2024 Reviewed by: Mohsen Villegas RN - Fully Assessed Reason for Visit: Home Care [4073] Prescriptions as of 11/28/2024 - busPIRone (BUSPAR) 7.5 mg tablet Take 1 tablet by mouth three times a day. - DULoxetine (CYMBALTA) 20 mg capsule Take 1 capsule by mouth once daily. - vancomycin 1 g in D5W 250 mL (VANCOCIN) Inject 1 g intravenously every 12 hours for 14 days. First Dose on 11/15/24 @ [facility]. Labs: CBC/DIFF, Creat, LFTs, Pre-dose Vancomycin level qMonday Tentative stop 11/29/24 - meropenem 1 g in NaCl 0.9% 100 mL (MERREM) Inject 1 g intravenously every 8 hours for 14 days. First Dose on 11/15/24 @ [facility]. Labs: CBC/DIFF, Creat, LFTs, Pre-dose Vancomycin level qMonday. Tentative stop 11/29/24 - diphenhydrAMINE HCL (BENADRYL ALLERGY) 50 mg tablet Take 50 mg by mouth every 12 hours. take before every Vancomycin dose - vancomycin HCl in 5 % dextrose (VANCOMYCIN HCL IN DEXTROSE) 1 gram/250 mL soln Inject 1 g intravenously every 12 hours. Vancomycin 1gm IV every 12 hours x 2 weeks Infuse over 60 minutes via [facility] to mix as minibag in 250mL D5W - meropenem (MERREM) 1 gram injection Inject 1 g intravenously every 8 hours. Meropenem 1gm IV every 8 hours x 2 weeks Infuse over 30 minutes via [facility] to mix as minibag plus in 100mL NS - sodium chloride (NaCl) 0.9% injection solution Inject 10 mL intravenously as directed. Flush before blood draws with 10 mL and after blood draws with 20 mL. Flush before and after each dose with 10 mL. Flush unused lumens with 10 mL daily. - acetaminophen (TYLENOL) 500 mg tablet Take 2 tablets by mouth every 6 hours. - albuterol HFA (PROVENTIL HFA, VENTOLIN HFA) 90 mcg/actuation inhaler Inhale 2 Puffs as instructed every 4 hours as needed for wheezing/shortness of breath. 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) [C79.2] 08/07/2016 Emphysema lung (HCC) [J43.9] 08/14/2016 Ovarian cyst, left [N83.202] 09/15/2016 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 [*10/04/2016 Chronic pain of both knees [M25.561, M25.562, G*12/09/2016 Encounter for screening for cardiovascular diso*12/09/2016 Hypokalemia [E87.6] 12/09/2016 11/02/2024 Hyperlipidemia, mixed [E78.2] 02/15/2019 PTSD (post-traumatic stress disorder) [F43.10] 02/08/2024 Panic attack [F41.0] 02/08/2024 Well adult exam [Z00.00] 03/14/2024 KELSI (generalized anxiety disorder) [F41.1] 03/14/2024 Acute appendicitis [K35.80] 10/24/2024 S/P laparoscopic appendectomy [Z90.49] 10/27/2024 Postoperative intra-abdominal abscess (HCC) [T8*10/30/2024 Intra-abdominal abscess (HCC) [K65.1] 11/15/2024 Encounter Status:Closed by MOHSEN VILLEGAS on 11/27/24 Normal [facility] CNPNon 11-25-2024 CNPN Telephone (ToothpickSWS) JENNA VALADEZ ([id number]) 1970 F Date Time Provider Department 11/25/24 KUSHAL BOSCH GENSWS During your visit today, we recorded the following information about you: Chanel Renteria LPN 11/25/2024 1:15 PM Signed Patient called into office requesting results of CT and plan of care. Please advise. POLINA Valdez Deborah, RN 11/25/2024 2:12 PM Addendum Patient called for CT results from 11/24/24 and recommended follow up. This nurse advised her of the results. Please advise and call patient back with recommendation for plan of care. Jenna states she is still on her ATB and wonders if she should continue the ATB? She also still has her PICC line and she wonders when she may go back to work. She also follows with DR Monique and is going to call their office [phone] for follow up plan from infectious disease. 11/24/2024 4:08 PM - Radiology, O[place] In Impression IMPRESSION: No acute findings in the abdomen or pelvis. Interval resolution of inflammatory changes in the right lower quadrant. Patient last saw DR Bosch on 11/18/23: PLAN: If the patient notes any problems or signs of wound infections, the patient should contact me immediately. she may return to her regular activities as tolerated. I have ordered a CT scan of the abdomen pelvis to be obtained which will hopefully show improvement in her collection. If not she may be sent for IR drainage. Please advise regarding plan of care. Thank you Patient would like a call back [phone] (home) [phone] (cell) Allergies As of Date: 11/25/2024 Noted Allergy Reaction PROZAC (FLUOXETINE HCL) 06/11/2015 14 - Other: See Comments Comments: headaches WELLBUTRIN (BUPROPION HCL) 12/19/2019 14 - Other: See Comments Comments: Increased anxiety and stomach ache Date Reviewed: 11/24/2024 Reviewed by: Kirstin Wallace MA - Fully Assessed Prescriptions as of 02/15/2025 - DIFICID 200 mg tablet Take 1 tablet by mouth every 12 hours. - DULoxetine (CYMBALTA) 30 mg capsule Take 1 capsule by mouth once daily. - ergocalciferol 50,000 unit capsule (VITAMIN D2, DRISDOL) Take 1 capsule by mouth one time a week. Use as directed. - diphenhydrAMINE HCL (BENADRYL ALLERGY) 50 mg tablet Take 50 mg by mouth every 12 hours. take before every Vancomycin dose - acetaminophen (TYLENOL) 500 mg tablet Take 2 tablets by mouth every 6 hours. - albuterol HFA (PROVENTIL HFA, VENTOLIN HFA) 90 mcg/actuation inhaler Inhale 2 Puffs as instructed every 4 hours as needed for wheezing/shortness of breath. 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) [C79.2] 08/07/2016 Emphysema lung (HCC) [J43.9] 08/14/2016 Ovarian cyst, left [N83.202] 09/15/2016 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 [*10/04/2016 Chronic pain of both knees [M25.561, M25.562, G*12/09/2016 Encounter for screening for cardiovascular diso*12/09/2016 Hypokalemia [E87.6] 12/09/2016 11/02/2024 Hyperlipidemia, mixed [E78.2] 02/15/2019 PTSD (post-traumatic stress disorder) [F43.10] 02/08/2024 Panic attack [F41.0] 02/08/2024 Well adult exam [Z00.00] 03/14/2024 KELSI (generalized anxiety disorder) [F41.1] 03/14/2024 Acute appendicitis [K35.80] 10/24/2024 S/P laparoscopic appendectomy [Z90.49] 10/27/2024 Postoperative intra-abdominal abscess (HCC) [T8*10/30/2024 Intra-abdominal abscess (HCC) [K65.1] 11/15/2024 Encounter Status:Closed by CHANEL RENTERIA on 02/15/25 [facility] CNOVon 11-24-2024 CNOV Office Visit (FAMPWS) JENNA VALADEZ ([id number]) 1970 F Date Time Provider Department 11/24/24 6:00 PM [facility]iWS During your visit today, we recorded the following information about you: Pulse Blood pressure Weight 105/minute 120/78 59 kg Elena Isbell APRN.CURING PRESS OPERATOR 11/24/2024 6:56 PM Signed Chief Complaint Patient presents with: Depression HPI Jenna Sarika Valadez is a 54 year old female who presents here today for Above Complaints.. Patient presents today for depression. Patient states she had an appendix surgery 11/21 and has had to take many antibiotics since the surgery. Patient states it has been a lot for her she is interested in medication. She is unable to work at this time. Patient states she has been on lexapro, celexa and Effexor. Patient states her sisters have been on zoloft and have had weight gain. She does not want try zoloft at this time. Patient states she feels no adela or happiness at this time. She thinks it could also be due to menopause she is interested in estrogen replacement but she does have a history of breast cancer in her family. Patient states she has had a decrease in libido. Patient states she is also having anxiety. Patient states she has been having some fatigue and night sweats but denies hair loss. Patient states she is also having fever and chill, but denies cough, SOB and chest pain. Past medical history, appointments, medications, allergies reviewed. Previous Medical History PAST MEDICAL HISTORY Diagnosis Date Anxiety Depression Emphysema lung (HCC) 08/14/2016 Hypokalemia Hypomagnesemia Low HDL (under 40) Previous Surgical History PAST SURGICAL HISTORY Procedure Laterality Date COLONOSCOPY 08/19/2016 EGD 08/19/2016 Family History FAMILY HISTORY Problem Relation Age of Onset Breast Cancer Mother Heart Maternal Grandmother Diabetes Maternal Grandmother Arthritis Maternal Uncle Breast Cancer Sister Breast Cancer Paternal Aunt Patient Allergies ALLERGIES Allergen Reactions Prozac [Fluoxetine * Other: See Comments headaches Wellbutrin [Bupropi* Other: See Comments Increased anxiety and stomach ache Current Medications Current Outpatient Medications on File Prior to Visit Medication Sig vancomycin 1 g in D5W 250 mL (VANCOCIN) Inject 1 g intravenously every 12 hours for 14 days. First Dose on 11/15/24 @ [facility] Labs: CBC/DIFF, Creat, LFTs, Pre-dose Vancomycin level qMonday Tentative stop 11/29/24 meropenem 1 g in NaCl 0.9% 100 mL (MERREM) Inject 1 g intravenously every 8 hours for 14 days. First Dose on 11/15/24 @ [facility] Labs: CBC/DIFF, Creat, LFTs, Pre-dose Vancomycin level qMonday. Tentative stop 11/29/24 diphenhydrAMINE HCL (BENADRYL ALLERGY) 50 mg tablet Take 50 mg by mouth every 12 hours. take before every Vancomycin dose vancomycin HCl in 5 % dextrose (VANCOMYCIN HCL IN DEXTROSE) 1 gram/250 mL soln Inject 1 g intravenously every 12 hours. Vancomycin 1gm IV every 12 hours x 2 weeks Infuse over 60 minutes via Control a [facility] to mix as minibag in 250mL D5W meropenem (MERREM) 1 gram injection Inject 1 g intravenously every 8 hours. Meropenem 1gm IV every 8 hours x 2 weeks Infuse over 30 minutes via [facility] Pharmacy to mix as minibag plus in 100mL NS sodium chloride (NaCl) 0.9% injection solution Inject 10 mL intravenously as directed. Flush before blood draws with 10 mL and after blood draws with 20 mL. Flush before and after each dose with 10 mL. Flush unused lumens with 10 mL daily. acetaminophen (TYLENOL) 500 mg tablet Take 2 tablets by mouth every 6 hours. albuterol HFA (PROVENTIL HFA, VENTOLIN HFA) 90 mcg/actuation inhaler Inhale 2 Puffs as instructed every 4 hours as needed for wheezing/shortness of breath. No current facility-administere d medications on file prior to visit. Social History Social History Tobacco Use Smoking status: Every Day Current packs/day: 1.00 Average packs/day: 1 pack/day for 25.0 years (25.0 ttl pk-yrs) Types: Cigarettes Smokeless tobacco: Never Vaping Use Vaping status: Never Used Substance Use Topics Alcohol use: No Drug use: Not Currently Types: Marijuana Review of Symptoms REVIEW OF SYSTEMS GENERAL: Fatigue RESPIRATORY: Negative for cough, hemoptysis, wheezing, COPD, dyspnea or shortness of breath CARDIOVASCULAR: Negative for chest pain, leg swelling, hypertension, CHF or palpitations EXAM: BP 120/78 Pulse 105 Wt 59 kg (130 lb 1.1 oz) LMP (LMP Unknown) BMI 24.24 kg/m? General Appearance: Well appearing, alert, in no acute distress, well-hydrated, well nourished.. Lungs: Lungs clear to auscultation. No wheezing, rhonchi, rales.. Heart: RRR without murmur, gallop, or rubs. No ectopy. Health Maintenance List Hepatitis B Vaccine(1 of 3 - 19+ 3-dose series) Never done Alpha-1 Antitrypsin Deficiency Screening (more content not included)... Normal [facility] CT ABD/PEL WO IVCONon 2024 CT ABD/PEL WO IVCON * * *Final Report* * * DATE OF EXAM: Nov 24 2024 3:32PM [facility] 0531 - CT ABD/PEL WO IVCON / PROCEDURE REASON: Infection in abdomen (HCC) * * * * Physician Interpretation * * * * EXAMINATION: CT ABDOMEN AND PELVIS WITHOUT IV CONTRAST CLINICAL HISTORY: Pain, prior perforated appendicitis TECHNIQUE: Non-IV contrast imaging of the abdomen and pelvis was performed using standard technique, scanning from just above the dome of the diaphragm to the symphysis pubis. Unenhanced imaging is limited for the evaluation of some intra-abdominal and pelvic pathology. MQ: CTAPWO_3 Contrast: IV: None Oral: 10 ml of Omni 240 10-25ml diluted with water CT Radiation dose: Integrated Dose-length product (DLP) for this visit = 408 mGy*cm. CT Dose Reduction Employed: Automated exposure control(AEC) and iterative recon COMPARISON: None. RESULT: Abdomen / Pelvis: Liver: Unremarkable. Biliary: The gallbladder is unremarkable. Spleen: No splenomegaly. Pancreas: Unremarkable. Adrenals: No mass. Kidneys: No calculus, hydronephrosis or finding to suggest a cyst or mass in the unenhanced kidney. GI Tract: Recent appendectomy. No extraluminal oral contrast. No bowel dilation. Lymph Nodes: No lymphadenopathy. Mesentery/peritoneum : No ascites. Retroperitoneum: No mass. Vasculature: Arterial atherosclerotic disease without aneurysm. Pelvis: No mass or ascites. Bones/Soft Tissues: No acute abnormality. Minimal stranding noted near the umbilicus. Lower thorax: Unremarkable. Localizer images: No additional findings. IMPRESSION: No acute findings in the abdomen or pelvis. Interval resolution of inflammatory changes in the right lower quadrant. Process Improvement Manager: ATTILA Transcribe Date/Time: Nov 24 2024 3:59P Dictated by : JOSE LIN MD This examination was interpreted and the report reviewed and electronically signed by: JOSE LIN MD on Nov 24 2024 4:06PM EST [id number] Normal [facility] CT Abdomen and Pelvis WO con traston 11-24-2024 IMPRESSION: No acute findings in the abdomen or pelvis. Interval resolution of inflammatory changes in the right lower quadrant. Process Improvement Manager: PSCB Transcribe Date/Time: Nov 24 2024 3:59P Dictated by : JOSE LIN MD This examination was interpreted and the report reviewed and electronically signed by: JOSE LIN MD on Nov 24 2024 4:06PM [facility] DIVISION OF RADIOLOGY * * *Final Report* * * DATE OF EXAM: Nov 24 2024 3:32PM [facility] 0531 - CT ABD/PEL WO IVCON / PROCEDURE REASON: Infection in abdomen (HCC) * * * * Physician Interpretation * * * * EXAMINATION: CT ABDOMEN AND PELVIS WITHOUT IV CONTRAST CLINICAL HISTORY: Pain, prior perforated appendicitis TECHNIQUE: Non-IV contrast imaging of the abdomen and pelvis was performed using standard technique, scanning from just above the dome of the diaphragm to the symphysis pubis. Unenhanced imaging is limited for the evaluation of some intra-abdominal and pelvic pathology. MQ: CTAPWO_3 Contrast: IV: None Oral: 10 ml of Omni 240 10-25ml diluted with water CT Radiation dose: Integrated Dose-length product (DLP) for this visit = 408 mGy*cm. CT Dose Reduction Employed: Automated exposure control(AEC) and iterative recon COMPARISON: None. RESULT: Abdomen / Pelvis: Liver: Unremarkable. Biliary: The gallbladder is unremarkable. Spleen: No splenomegaly. Pancreas: Unremarkable. Adrenals: No mass. Kidneys: No calculus, hydronephrosis or finding to suggest a cyst or mass in the unenhanced kidney. GI Tract: Recent appendectomy. No extraluminal oral contrast. No bowel dilation. Lymph Nodes: No lymphadenopathy. Mesentery/peritoneum : No ascites. Retroperitoneum: No mass. Vasculature: Arterial atherosclerotic disease without aneurysm. Pelvis: No mass or ascites. Bones/Soft Tissues: No acute abnormality. Minimal stranding noted near the umbilicus. Lower thorax: Unremarkable. Localizer images: No additional findings. DIVISION OF RADIOLOGY Provider, [facility] - 11/24/2024 * * *Final Report* * * DATE OF EXAM: Nov 24 2024 3:32PM [facility] 0531 - CT ABD/PEL WO IVCON / PROCEDURE REASON: Infection in abdomen (HCC) * * * * Physician Interpretation * * * * EXAMINATION: CT ABDOMEN AND PELVIS WITHOUT IV CONTRAST CLINICAL HISTORY: Pain, prior perforated appendicitis TECHNIQUE: Non-IV contrast imaging of the abdomen and pelvis was performed using standard technique, scanning from just above the dome of the diaphragm to the symphysis pubis. Unenhanced imaging is limited for the evaluation of some intra-abdominal and pelvic pathology. MQ: CTAPWO_3 Contrast: IV: None Oral: 10 ml of Omni 240 10-25ml diluted with water CT Radiation dose: Integrated Dose-length product (DLP) for this visit = 408 mGy*cm. CT Dose Reduction Employed: Automated exposure control(AEC) and iterative recon COMPARISON: None. RESULT: Abdomen / Pelvis: Liver: Unremarkable. Biliary: The gallbladder is unremarkable. Spleen: No splenomegaly. Pancreas: Unremarkable. Adrenals: No mass. Kidneys: No calculus, hydronephrosis or finding to suggest a cyst or mass in the unenhanced kidney. GI Tract: Recent appendectomy. No extraluminal oral contrast. No bowel dilation. Lymph Nodes: No lymphadenopathy. Mesentery/peritoneum : No ascites. Retroperitoneum: No mass. Vasculature: Arterial atherosclerotic disease without aneurysm. Pelvis: No mass or ascites. Bones/Soft Tissues: No acute abnormality. Minimal stranding noted near the umbilicus. Lower thorax: Unremarkable. Localizer images: No additional findings. IMPRESSION IMPRESSION: No acute findings in the abdomen or pelvis. Interval resolution of inflammatory changes in the right lower quadrant. Process Improvement Manager: ATTILA Transcribe Date/Time: Nov 24 2024 3:59P Dictated by : JOSE LIN MD This examination was interpreted and the report reviewed and electronically signed by: JOSE LIN MD on Nov 24 2024 4:06PM EST [facility] Radiology Study observation (narrative) [facility] CT Abdomen and Pelvis WO con trastOrdered By: Ccf Provider on 11-24-2024 [facility] CBC W Auto Differential pane l (Bld)on 11-21-2024 Basophils (Bld) [#/Vol] 0.08 10*3/uL Normal <0.11 [facility] Comment on above: Order Comment: Speci men Type: BLOOD SPECIMENOrdering Facility: [facility] Address: [address] [place], [place] [id number] Performed By: #### 5 7021-8 ####[facility] HOSPITALWNCLIA [id number] [place] [address] [place] Basophils/100 WBC (Bld) 0.9 % Normal [facility] Comment on above: Order Comment: Speci men Type: BLOOD SPECIMENOrdering Facility: [facility] Address: [address] [place] [address] Performed By: #### 5 7021-8 ####[facility] CENTERLIA [id number] [place] [address] [place] Differential cell count method Nom (Bld) Auto Normal [facility] Comment on above: Order Comment: Speci men Type: BLOOD SPECIMENOrdering Facility: [facility] Address: [address] [place] [address] Performed By: #### 5 7021-8 ####[facility]ITALA [id number] [place] [address] [place] Eosinophils (Bld) [#/Vol] 0.21 10*3/uL Normal <0.46 [facility] Comment on above: Order Comment: Speci men Type: BLOOD SPECIMENOrdering Facility: [facility] Address: [address] [place] [address] Performed By: #### 5 7021-8 ####[facility] CENTERLIA [id number] [place] [address] [place] Eosinophils/100 WBC (Bld) 2.4 % Normal [facility] Comment on above: Order Comment: Speci men Type: BLOOD SPECIMENOrdering Facility: [facility] Address: [address] [place] [address] Performed By: #### 5 7021-8 ####[facility]ITALA [id number] [place] [address] [place] Erythrocyte distribution width (RBC) [Ratio] 13.7 % Normal 11.5-15.0 [facility] Comment on above: Order Comment: Speci men Type: BLOOD SPECIMENOrdering Facility: [facility] Address: [address] [place] [address] Performed By: #### 5 7021-8 ####[facility] [id number] [place] [address] [place] Hematocrit (Bld) [Volume fraction] 34.9 % Low 36.0-46.0 [facility] Comment on above: Order Comment: Speci men Type: BLOOD SPECIMENOrdering Facility: [facility] Address: [address] [place] [address] Performed By: #### 5 7021-8 ####[facility] [id number] [place] [address] [place] Hemoglobin (Bld) [Mass/Vol] 11.9 g/dL Normal 11.5-15.5 [facility] Comment on above: Order Comment: Speci men Type: BLOOD SPECIMENOrdering Facility: [facility] Address: [address] [place] [address] Performed By: #### 5 7021-8 ####[facility] [id number] [place] [address] [place] Immature granulocytes (Bld) [#/Vol] 10*3/uL Normal <0.10 [facility] Comment on above: Order Comment: Speci men Type: BLOOD SPECIMENOrdering Facility: [facility] Address: [address] [place] [address] Performed By: #### 5 7021-8 ####[facility] [id number] [place] [address] [place] Immature granulocytes/100 WBC (Bld) 0.2 % Normal [facility] Comment on above: Order Comment: Speci men Type: BLOOD SPECIMENOrdering Facility: [facility] Address: [address] [place] [address] Performed By: #### 5 7021-8 ####[facility] CENTERSILVIA [id number] [place] [address] [place] Lymphocytes (Bld) [#/Vol] 1.89 10*3/uL Normal 1.00-4.00 [facility] Comment on above: Order Comment: Speci men Type: BLOOD SPECIMENOrdering Facility: [facility] Address: [address] [place] [address] Performed By: #### 5 7021-8 ####[facility]OSPITALAntonino [id number] [place] [address] [place] Lymphocytes/100 WBC (Bld) 21.8 % Normal [facility] Comment on above: Order Comment: Speci men Type: BLOOD SPECIMENOrdering Facility: [facility] Address: [address] [place] [address] Performed By: #### 5 7021-8 ####[facility] CENTERSILVIA [id number] [place] [address] [place] MCH (RBC) [Entitic mass] 28.7 pg Normal 26.0-34.0 [facility] Comment on above: Order Comment: Speci men Type: BLOOD SPECIMENOrdering Facility: [facility] Address: [address] [place] [address] Performed By: #### 5 7021-8 ####[facility] CENTERSILVIA [id number] [place] [address] [place] MCHC (RBC) [Mass/Vol] 34.1 g/dL Normal 30.5-36.0 [facility] Comment on above: Order Comment: Speci men Type: BLOOD SPECIMENOrdering Facility: [facility] Address: [address] [place] [address] Performed By: #### 5 7021-8 ####[facility] CENTERLIA [id number] [place] [address] [place] MCV (RBC) [Entitic vol] 84.3 fL Normal 80.0-100.[address] [facility] Comment on above: Order Comment: Speci men Type: BLOOD SPECIMENOrdering Facility: [facility] Address: [address] [place] [address] Performed By: #### 5 7021-8 ####[facility] [id number] [place] [address] [place] Monocytes (Bld) [#/Vol] 0.57 10*3/uL Normal <0.87 [facility] Comment on above: Order Comment: Speci men Type: BLOOD SPECIMENOrdering Facility: [facility] Address: [address] [place] [address] Performed By: #### 5 7021-8 ####[facility]A [id number] [place] [address] [place] Monocytes/100 WBC (Bld) 6.6 % Normal [facility] Comment on above: Order Comment: Speci men Type: BLOOD SPECIMENOrdering Facility: [facility] Address: [address] [place] [address] Performed By: #### 5 7021-8 ####[facility]ENTERLIA [id number] [place] [address] [place] Neutrophils (Bld) [#/Vol] 5.91 10*3/uL Normal 1.45-7.50 [facility] Comment on above: Order Comment: Speci men Type: BLOOD SPECIMENOrdering Facility: [facility] Address: [address] [place] [address] Performed By: #### 5 7021-8 ####[facility] [id number] [place] [address] [place] Neutrophils/100 WBC (Bld) 68.1 % Normal [facility] Comment on above: Order Comment: Speci men Type: BLOOD SPECIMENOrdering Facility: [facility] Address: [address] [place] [address] Performed By: #### 5 7021-8 ####[facility] [id number] [place] [address] [place] Nucleated RBC (Bld) [#/Vol] 10*3/uL Normal <0.01 [facility] Comment on above: Order Comment: Speci men Type: BLOOD SPECIMENOrdering Facility: [facility] Address: [address] [place] [address] Performed By: #### 5 7021-8 ####[facility] [id number] [place] [address] [place] Nucleated RBC/100 WBC (Bld) [Ratio] 0.0 /100 WBC Normal [facility] Comment on above: Order Comment: Speci men Type: BLOOD SPECIMENOrdering Facility: [facility] Address: [address] [place] [address] Performed By: #### 5 7021-8 ####[facility] [id number] [place] [address] [place] Platelet mean volume (Bld) [Entitic vol] 9.5 fL Normal 9.0-12.7 [facility] Comment on above: Order Comment: Speci men Type: BLOOD SPECIMENOrdering Facility: [facility] Address: [address] [place] [address] Performed By: #### 5 7021-8 ####[facility] [id number] [place] [address] [place] Platelets (Bld) [#/Vol] 355 10*3/uL Normal 150-400 [facility] Comment on above: Order Comment: Speci men Type: BLOOD SPECIMENOrdering Facility: [facility] Address: [address] [place] [address] Performed By: #### 5 7021-8 ####[facility] [id number] [place] [address] [place] RBC (Bld) [#/Vol] 4.14 10*6/uL Normal 3.90-5.20 [facility] Comment on above: Order Comment: Speci men Type: BLOOD SPECIMENOrdering Facility: [facility] Address: [address] [place] [address] Performed By: #### 5 7021-8 ####[facility] [id number] [place] [address] [place] WBC (Bld) [#/Vol] 8.68 10*3/uL Normal 3.70-11.00 [facility] Comment on above: Order Comment: Speci men Type: BLOOD SPECIMENOrdering Facility: [facility] Address: [address] [place] [address] Performed By: #### 5 7021-8 ####[facility] [id number] [place] [address] [place] CREATININE BLDon 11-21-2024 Creatinine [Mass/Vol] 0.55 mg/dL Low 0.58-0.96 [facility] Comment on above: Order Comment: Speckathy parson Type: BLOOD SPECIMENOrdering Facility: [facility] Address: [address] [place] [address] Performed By: #### C ENRICO1, 86167-6 ####[facility]ENTERLIA [id number] [address] Creatinine and Glomerular filtration rate.predicted panel (S/P/Bld) 108 mL/min/1.73m??? Normal >=60 [facility] Comment on above: Order Comment: Darrel parson Type: BLOOD SPECIMENOrdering Facility: [facility] Address: [address] [place] [address] Result Comment: Zara mated Glomerular Filtration Rate (eGFR) is calculated using the 2020 CKD-EPI creatinine equation. This equation utilizes serum creatinine, sex, and age as parameters. The creatinine assay has traceable calibration to isotope dilution-mass spectrometry. Refer to KDIGO guidelines for clinical interpretation. In patients with unstable renal function, e.g. those with acute kidney injury, the eGFR may not accurately reflect actual GFR. Performed By: #### C ENRICO, 47904-1 ####[facility]ENTERLIA [id number] [address] [place] Hepatic function 2000 panelo n 11-21-2024 Albumin [Mass/Vol] 4.0 g/dL Normal 3.9-4.9 [facility] Comment on above: Order Comment: Speckathy parson Type: BLOOD SPECIMENOrdering Facility: [facility] Address: [address] [place] [address] Performed By: #### C RET1, 21070-0 ####[facility]ENTERLIA [id number] [place] [address] [place] ALP [Catalytic activity/Vol] 113 U/L Normal 34-123 [facility] Comment on above: Order Comment: Speci men Type: BLOOD SPECIMENOrdering Facility: [facility] Address: [address] [place] [address] Performed By: #### C RET1, 88158-2 ####[facility]ENTERLIA [id number] [place] [address] [place] ALT [Catalytic activity/Vol] 27 U/L Normal 7-38 [facility] Comment on above: Order Comment: Speci men Type: BLOOD SPECIMENOrdering Facility: [facility] Address: [address] [place] [address] Performed By: #### C RET, 21302-0 ####[facility] [id number] [place] [address] [place] AST [Catalytic activity/Vol] 29 U/L Normal 13-35 [facility] Comment on above: Order Comment: Speci men Type: BLOOD SPECIMENOrdering Facility: [facility] Address: [address] [place] [address] Performed By: #### C RET, 81539-0 ####[facility]ENTERLIA [id number] [place] [address] [place] Bilirubin [Mass/Vol] 0.2 mg/dL Normal 0.2-1.3 [facility] Comment on above: Order Comment: Speci men Type: BLOOD SPECIMENOrdering Facility: [facility] Address: [address] [place] [address] Performed By: #### C RET1, 41325-3 ####[facility]NCLIA [id number] [place] [address] [place] Bilirubin.conjugated [Mass/Vol] 0.1 mg/dL Normal <0.3 [facility] Comment on above: Order Comment: Speci men Type: BLOOD SPECIMENOrdering Facility: [facility] Address: [address] [place] [address] Performed By: #### C RET1, 82696-2 ####[facility] [id number] [place] [address] [place] Protein [Mass/Vol] 6.7 g/dL Normal 6.3-8.0 [facility] Comment on above: Order Comment: Speci men Type: BLOOD SPECIMENOrdering Facility: [facility] [facility] Address: [address] [place] [address] Performed By: #### C ENRICO, 09246-1 ####[facility] [id number] [place] [address] [place] Vancomycin [employer] SerPl-ncon 11-21-2024 Vancomycin random [Mass/Vol] 14.4 ug/mL Normal 10.0-20.0 [facility] Comment on above: Order Comment: Speci men Type: BLOOD SPECIMENOrdering Facility: [facility] Address: [address] [place] [address] Result Comment: Refe rence ranges and high/low indicator flags are provided as general guidelines only. The treating physician must determine appropriate target levels/dosing based on the specific clinical situation. Performed By: #### 4 091-5 ####[facility] LABCLIA [id number] [place] [address] [place] CBC W Auto Differential pane l (Bld)on 11-17-2024 Basophils (Bld) [#/Vol] 0.14 10*3/uL High [facility] Basophils/100 WBC (Bld) 1.4 % [facility] Differential cell count method Nom (Bld) Auto [facility] Eosinophils (Bld) [#/Vol] 0.18 10*3/uL [facility] Eosinophils/100 WBC (Bld) 1.8 % [facility] Erythrocyte distribution width (RBC) [Ratio] 14.3 % 11.5 - 15.0 % [facility] Hematocrit (Bld) [Volume fraction] 35.9 % Low 36.0 - 46.0 % [facility] Hemoglobin (Bld) [Mass/Vol] 12.2 g/dL 11.5 - 15.5 g/dL [facility] Immature granulocytes (Bld) [#/Vol] [facility] Immature granulocytes/100 WBC (Bld) 0.2 % [facility] Interpretation and review of laboratory results Abnormal [facility] Lymphocytes (Bld) [#/Vol] 3.08 10*3/uL [facility] Lymphocytes/100 WBC (Bld) 30.2 % [facility] MCH (RBC) [Entitic mass] 29 pg 26. 0 - 34.0 pg [facility] MCHC (RBC) [Mass/Vol] 34 g/dL 30.5 - 36.0 g/dL [facility] MCV (RBC) [Entitic vol] 85.3 fL 80.0 - 100.0 fL [facility] Monocytes (Bld) [#/Vol] 0.72 10*3/uL [facility] Monocytes/100 WBC (Bld) 7.1 % [facility] Neutrophils (Bld) [#/Vol] 6.06 10*3/uL [facility] Neutrophils/100 WBC (Bld) 59.3 % [facility] Nucleated RBC (Bld) [#/Vol] [facility] Nucleated RBC/100 WBC (Bld) [Ratio] 0 % /100 WBC [facility] Platelet mean volume (Bld) [Entitic vol] 8.9 fL Low 9.0 - 12.7 fL [facility] Platelets (Bld) [#/Vol] 439 10*3/uL High [facility] RBC (Bld) [#/Vol] 4.21 10*6/uL 3.90 - 5.2 0 m/uL [facility] WBC (Bld) [#/Vol] 10.2 10*3/uL [facility] Basophils (Bld) [#/Vol] 0.14 10*3/uL High <0.11 [facility] Comment on above: Order Comment: Speci men Type: BLOOD SPECIMENOrdering Facility: [facility] Address: [address] [place] [address] Performed By: #### 5 7021-8 ####[facility] TESHAArturNCLIA [id number] [place] [address] [place] Basophils/100 WBC (Bld) 1.4 % Normal [facility] Comment on above: Order Comment: Speci men Type: BLOOD SPECIMENOrdering Facility: [facility] Address: [address] [place] [address] Performed By: #### 5 7021-8 ####[facility] CENTERLIA [id number] [place] [address] [place] Differential cell count method Nom (Bld) Auto Normal [facility] Comment on above: Order Comment: Speci men Type: BLOOD SPECIMENOrdering Facility: [facility] Address: [address] [place] [address] Performed By: #### 5 7021-8 ####[facility] CENTERLIA [id number] [place] [address] [place] Eosinophils (Bld) [#/Vol] 0.18 10*3/uL Normal <0.46 [facility] Comment on above: Order Comment: Speci men Type: BLOOD SPECIMENOrdering Facility: [facility] Address: [address] [place] [address] Performed By: #### 5 7021-8 ####[facility] MILLWNCLIA [id number] [place] [address] [place] Eosinophils/100 WBC (Bld) 1.8 % Normal [facility] Comment on above: Order Comment: Speci men Type: BLOOD SPECIMENOrdering Facility: [facility] Address: [address] [place] [address] Performed By: #### 5 7021-8 ####[facility]ITALWNCLIA [id number] [place] [address] [place] Erythrocyte distribution width (RBC) [Ratio] 14.3 % Normal 11.5-15.0 [facility] Comment on above: Order Comment: Speci men Type: BLOOD SPECIMENOrdering Facility: [facility] Address: [address] [place] [address] Performed By: #### 5 7021-8 ####[facility]ASTSERGIOLIA [id number] [place] [address] [place] Hematocrit (Bld) [Volume fraction] 35.9 % Low 36.0-46.0 [facility] Comment on above: Order Comment: Speci men Type: BLOOD SPECIMENOrdering Facility: [facility] Address: [address] [place] [address] Performed By: #### 5 7021-8 ####[facility] COASTSERGIOLI [id number] [place] [address] [place] Hemoglobin (Bld) [Mass/Vol] 12.2 g/dL Normal 11.5-15.5 [facility] Comment on above: Order Comment: Speci men Type: BLOOD SPECIMENOrdering Facility: [facility] Address: [address] [place] [address] Performed By: #### 5 7021-8 ####[facility]ASTSERGIOLIA [id number] [place] [address] [place] Immature granulocytes (Bld) [#/Vol] 10*3/uL Normal <0.10 [facility] Comment on above: Order Comment: Speci men Type: BLOOD SPECIMENOrdering Facility: [facility] Address: [address] [place] [address] Performed By: #### 5 7021-8 ####[facility] COASTNCLIA [id number] [place] [address] [place] Immature granulocytes/100 WBC (Bld) 0.2 % Normal [facility] Comment on above: Order Comment: Speci men Type: BLOOD SPECIMENOrdering Facility: [facility] Address: [address] [place] [address] Performed By: #### 5 7021-8 ####[facility]NCS[facility] [id number] [place] [address] [place] Lymphocytes (Bld) [#/Vol] 3.08 10*3/uL Normal 1.00-4.00 [facility] Comment on above: Order Comment: Speci men Type: BLOOD SPECIMENOrdering Facility: [facility] Address: [address] [place] [address] Performed By: #### 5 7021-8 ####[facility] [id number] [place] [address] [place] Lymphocytes/100 WBC (Bld) 30.2 % Normal [facility] Comment on above: Order Comment: Speci men Type: BLOOD SPECIMENOrdering Facility: [facility] Address: [address] [place] [address] Performed By: #### 5 7021-8 ####[facility] [id number] [place] [address] [place] MCH (RBC) [Entitic mass] 29.0 pg Normal 26.0-34.0 [facility] Comment on above: Order Comment: Speci men Type: BLOOD SPECIMENOrdering Facility: [facility] Address: [address] [place], [place] [address] Performed By: #### 5 7021-8 ####[facility] [id number] [place] [address] [place] MCHC (RBC) [Mass/Vol] 34.0 g/dL Normal 30.5-36.0 [facility] Comment on above: Order Comment: Speci men Type: BLOOD SPECIMENOrdering Facility: [facility] Address: [address] [place] [address] Performed By: #### 5 7021-8 ####[facility]ASTMARIA DEL CARMEN [id number] [place] [address] [place] MCV (RBC) [Entitic vol] 85.3 fL Normal 80.0-100.[address] [facility] Comment on above: Order Comment: Speci men Type: BLOOD SPECIMENOrdering Facility: [facility] Address: [address] [place] [address] Performed By: #### 5 7021-8 ####[facility] [id number] [place] [address] [place] Monocytes (Bld) [#/Vol] 0.72 10*3/uL Normal <0.87 [facility] Comment on above: Order Comment: Speci men Type: BLOOD SPECIMENOrdering Facility: [facility] Address: [address] [place] [address] Performed By: #### 5 7021-8 ####[facility] COASTNCA [id number] [place] [address] [place] Monocytes/100 WBC (Bld) 7.1 % Normal [facility] Comment on above: Order Comment: Speci men Type: BLOOD SPECIMENOrdering Facility: [facility] Address: [address] [place] [address] Performed By: #### 5 7021-8 ####[facility] COASTNCLIA [id number] [place] [address] [place] Neutrophils (Bld) [#/Vol] 6.06 10*3/uL Normal 1.45-7.50 [facility] Comment on above: Order Comment: Speci men Type: BLOOD SPECIMENOrdering Facility: [facility] Address: [address] [place] [address] Performed By: #### 5 7021-8 ####[facility] TESHAWSERGIOLIA [id number] [place] [address] [place] Neutrophils/100 WBC (Bld) 59.3 % Normal [facility] Comment on above: Order Comment: Speci men Type: BLOOD SPECIMENOrdering Facility: [facility] Address: [address] [place] [address] Performed By: #### 5 7021-8 ####[facility] COASTJHONNYA [id number] [place] [address] [place] Nucleated RBC (Bld) [#/Vol] 10*3/uL Normal <0.01 [facility] Comment on above: Order Comment: Speci men Type: BLOOD SPECIMENOrdering Facility: [facility] Address: [address] [place] [address] Performed By: #### 5 7021-8 ####[facility] [id number] [place] [address] [place] Nucleated RBC/100 WBC (Bld) [Ratio] 0.0 /100 WBC Normal [facility] Comment on above: Order Comment: Speci men Type: BLOOD SPECIMENOrdering Facility: [facility] Address: [address] [place] [address] Performed By: #### 5 7021-8 ####[facility] CENTERLATAA [id number] [place] [address] [place] Platelet mean volume (Bld) [Entitic vol] 8.9 fL Low 9.0-12.7 [facility] Comment on above: Order Comment: Speci men Type: BLOOD SPECIMENOrdering Facility: [facility] Address: [address] [place] [address] Performed By: #### 5 7021-8 ####[facility] COASTNCLIA [id number] [place] [address] [place] Platelets (Bld) [#/Vol] 439 10*3/uL High 150-400 [facility] Comment on above: Order Comment: Speci men Type: BLOOD SPECIMENOrdering Facility: [facility] Address: [address] [place] [address] Performed By: #### 5 7021-8 ####[facility] HOSPITALWNCLIA [id number] [place] [address] [place] RBC (Bld) [#/Vol] 4.21 10*6/uL Normal 3.90-5.20 [facility] Comment on above: Order Comment: Speci men Type: BLOOD SPECIMENOrdering Facility: [facility] Address: [address] [place] [address] Performed By: #### 5 7021-8 ####[facility] COASTNCLIA [id number] [place] [address] [place] WBC (Bld) [#/Vol] 10.20 10*3/uL Normal 3.70-11.00 [facility] Comment on above: Order Comment: Speci men Type: BLOOD SPECIMENOrdering Facility: [facility] Address: [address] [place] [address] Performed By: #### 5 7021-8 ####[facility] COASTNCLIA [id number] [place] [address] [place] CNOVon 11-17-2024 CNOV Office Visit (GENSWS) JENNA VALADEZ ([id number]) 1970 F Date Time Provider Department 11/17/24 12:15 PM KUSHAL BOSCH GENSWS During your visit today, we recorded the following information about you: Temperature Pulse Respiration Blood pressure 98.3 degrees 119/minute 16/minute 100/64 Weight 58.1 kg Kushal Bosch MD 11/18/2024 10:03 PM Signed FOLLOW UP VISIT - APPENDICITIS NAME: Jenna Valadez CLINIC NO.: [id number] DATE OF SERVICE: 11/17/2024 : 1970 REFERRING PHYSICIAN: Anmol Chen MD Jenna is a patient I am following for acute appendicitis. She presented with a 2-day history of initially vague abdominal pain but an elevated white count of 24,[address] scan demonstrating acute appendicitis I performed a laparoscopic appendectomy on October 25, 2024 for acute gangrenous perforated appendicitis. Pathology returned as: FINAL DIAGNOSIS A. Appendix, Appendectomy: - Acute necrotizing appendicitis with periappendicitis and serositis. She was initially discharged on October 27, 2024. She returned on October 30, 2024 with complaint of abdominal pain and bloating. CT scan demonstrated a periappendiceal postoperative abscess. IR was consulted but due to the location of the abscess it was felt not to be amenable to percutaneous drainage. She was admitted for IV antibiotics she was discharged to home on November 02, 2024 with IV recommendations to be discharged on a PICC line with IV antibiotics-ertapene m for 1 week. The patient currently notes no complaints. her appetite has been good. she denies fever, chills or abdominal pain. she does note some minimal incisional discomfort. VITALS: Blood pressure 100/64, pulse 119, temperature 36.8 ?C (98.3 ?F), temperature source Temporal Artery, resp. rate 16, weight 58.1 kg (128 lb), SpO2 99%. On examination, the abdomen is benign. The incisions are healing well without signs of infection or inflammation. There is no right lower quadrant tenderness. Assessment IMPRESSION: status post laparoscopic appendectomy for acute appendicitis PLAN: If the patient notes any problems or signs of wound infections, the patient should contact me immediately. she may return to her regular activities as tolerated. I have ordered a CT scan of the abdomen pelvis to be obtained which will hopefully show improvement in her collection. If not she may be sent for IR drainage. Diagnoses: (K65.9) Infection in abdomen (HCC) (primary encounter diagnosis) (K35.32) Perforated appendicitis Return to Clinic: The patient is instructed to follow-up with me as needed. Kushal Bosch MD Allergies As of Date: 11/17/2024 Noted Allergy Reaction PROZAC (FLUOXETINE HCL) 06/11/2015 14 - Other: See Comments Comments: headaches WELLBUTRIN (BUPROPION HCL) 12/19/2019 14 - Other: See Comments Comments: Increased anxiety and stomach ache Date Reviewed: 11/17/2024 Reviewed by: Chioma Menjivar RN - Fully Assessed Reason for Visit: Post Op [174] Primary Visit Diagnosis:Infection in abdomen (HCC) [K65.9] Other Visit Diagnosis:Perforated appendicitis [K35.32] Order(s):CT ABD/PEL WO IVCON [[id number]] Order #: [id number] FUTURE [] enteric contrast (will be provided with radiology test)Take 1 Each by mouth one time only for [address] ABD/PEL WO Routine order Administer, As Directed One Time Only, via Oral, Rectal, both Oral and Rectal, Enteric Tube, Stoma or Indwelling Catheter, Enteric Contrast as designated per enteric contrast guidelinesDisp: 1 EachRfl: 0 COMPLETE BLOOD COUNT AND DIFFERENTIAL [SQCBCDIF] Order #: [id number] FUTURE Prescriptions as of 11/18/2024 - vancomycin 1 g in D5W 250 mL (VANCOCIN) Inject 1 g intravenously every 12 hours for 14 days. First Dose on 11/15/24 @ [facility] Labs: CBC/DIFF, Creat, LFTs, Pre-dose Vancomycin level qMonday Tentative stop 11/29/24 - meropenem 1 g in NaCl 0.9% 100 mL (MERREM) Inject 1 g intravenously every 8 hours for 14 days. First Dose on 11/15/24 @ [facility] Labs: CBC/DIFF, Creat, LFTs, Pre-dose Vancomycin level qMonday. Tentative stop 11/29/24 - diphenhydrAMINE HCL (BENADRYL ALLERGY) 50 mg tablet Take 50 mg by mouth every 12 hours. take before every Vancomycin dose - vancomycin HCl in 5 % dextrose (VANCOMYCIN HCL IN DEXTROSE) 1 gram/250 mL soln Inject 1 g intravenously every 12 hours. Vancomycin 1gm IV every 12 hours x 2 weeks Infuse over 60 minutes via Control [facility] to mix as minibag in 250mL D5W - meropenem (MERREM) 1 gram injection Inject 1 g intravenously every 8 hours. Meropenem 1gm IV every 8 hours x 2 weeks Infuse over 30 minutes via [facility] to mix as minibag plus in 100mL NS - sodium chloride (NaCl) 0.9% injection solution Inject 10 mL intravenously as directed. Flush before blood draws with 10 mL and after blood draws wi (more content not included)... Normal [facility] 102on 11-16-2024 102 HNO ID: [id number] Author: DYAN GALLAGHER HDA Service: ? Author Type: ? Type: 102 Filed: 11/16/2024 09:13 Note Text: Code Status: Full Code Normal [facility] NURSING PROGon 11-15-2024 NURSING PROG HNO ID: [id number] Author: THI GUDINO, RN Service: Nursing Author Type: Registered Nurse Type: Nursing Progress Note Filed: 11/15/2024 13:48 Note Text: Pt c/o mild itching inside 30 min after starting vanco, vss, alert, no resp distress noted, Dr monique office called and informed. Was instructed to given solumedrol and benadryl and continue vanco. 1348 vss, alert, no resp distress noted, itching not as bad Normal [facility] POTASSIUMon 11-09-2024 Potassium [Moles/Vol] 4.3 mmol/L Normal 3.7-5.1 [facility] Comment on above: Order Comment: Speci men Type: BLOOD SPECIMENOrdering Facility: [facility] Address: [address] [place] [address] Performed By: #### K 1 ####[facility] LABCLIA [id number] [place] [address] [place] Rudy 11-08-2024 CNPN Telephone (FAMPWS) JENNA VALADEZ ([id number]) 1970 F Date Time Provider Department 11/08/24 ELENA ISBELL During your visit today, we recorded the following information about you: Elena Isbell APRN.[employer]ING PRESS OPERATOR 11/08/2024 11:51 AM Signed Please let patient know they did not run her potassium so she will need to get another blood draw. Also she does not need a follow up visit just for the potassium. I will call her with results. Shellie Ruiz, EL 11/09/2024 11:41 AM Signed Pt called and is notified of providers message and instructions. Pt voices understanding. Canceled f/u appointment to go over results. Shellie Ruiz RN Allergies As of Date: 11/08/2024 Noted Allergy Reaction PROZAC (FLUOXETINE HCL) 06/11/2015 14 - Other: See Comments Comments: headaches WELLBUTRIN (BUPROPION HCL) 12/19/2019 14 - Other: See Comments Comments: Increased anxiety and stomach ache Date Reviewed: 11/07/2024 Reviewed by: Alexandra Ayoub, EL - Fully Assessed Reason for Visit: Orders [681] Prescriptions as of 11/09/2024 - ertapenem sodium (ERTAPENEM INTRAVENOUS) Inject 1 g intravenously once daily. - sodium chloride (NaCl) 0.9% injection solution Inject 10 mL intravenously as directed. Flush before blood draws with 10 mL and after blood draws with 20 mL. Flush before and after each dose with 10 mL. Flush unused lumens with 10 mL daily. - acetaminophen (TYLENOL) 500 mg tablet Take 2 tablets by mouth every 6 hours. - albuterol HFA (PROVENTIL HFA, VENTOLIN HFA) 90 mcg/actuation inhaler Inhale 2 Puffs as instructed every 4 hours as needed for wheezing/shortness of breath. 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] 08/07/2016 Emphysema lung (HCC) [J43.9] 08/14/2016 Ovarian cyst, left [N83.202] 09/15/2016 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 [*10/04/2016 Chronic pain of both knees [M25.561, M25.562, G*12/09/2016 Encounter for screening for cardiovascular diso*12/09/2016 Hypokalemia [E87.6] 12/09/2016 11/02/2024 Hyperlipidemia, mixed [E78.2] 02/15/2019 PTSD (post-traumatic stress disorder) [F43.10] 02/08/2024 Panic attack [F41.0] 02/08/2024 Well adult exam [Z00.00] 03/14/2024 KELSI (generalized anxiety disorder) [F41.1] 03/14/2024 Acute appendicitis [K35.80] 10/24/2024 S/P laparoscopic appendectomy [Z90.49] 10/27/2024 Postoperative intra-abdominal abscess (HCC) [T8*10/30/2024 Encounter Status:Closed by SHELLIE RUIZ on 11/09/24 Normal [facility] CBC W Auto Differential pane l (Bld)on 11-07-2024 Basophils (Bld) [#/Vol] 0.10 10*3/uL Normal <0.11 [facility] Comment on above: Order Comment: Speci men Type: BLOOD SPECIMENOrdering Facility: [facility] Address: [address] [place] [address], [place] [address] Performed By: #### 5 7021-8 ####[facility] MILLTOWNCLIA [id number] [place] [address] [place] Basophils/100 WBC (Bld) 1.1 % Normal [facility] Comment on above: Order Comment: Speci men Type: BLOOD SPECIMENOrdering Facility: [facility] Address: [address] [place] [address], [place] [address] Performed By: #### 5 7021-8 ####[facility] MILLTOWNCLIA [id number] [place] [address] [place] Differential cell count method Nom (Bld) Auto Normal [facility] Comment on above: Order Comment: Speci men Type: BLOOD SPECIMENOrdering Facility: [facility] Address: [address] [place] [address] Performed By: #### 5 7021-8 ####[facility] TESHAWSERGIOLIA [id number] [place] [address] [place] Eosinophils (Bld) [#/Vol] 0.11 10*3/uL Normal <0.46 [facility] Comment on above: Order Comment: Speci men Type: BLOOD SPECIMENOrdering Facility: [facility] Address: [address] [place] [address] Performed By: #### 5 7021-8 ####[facility] MILLWNCLIA [id number] [place] [address] [place] Eosinophils/100 WBC (Bld) 1.3 % Normal [facility] Comment on above: Order Comment: Speci men Type: BLOOD SPECIMENOrdering Facility: [facility] Address: [address] [place] [address] Performed By: #### 5 7021-8 ####[facility]PITALWNCLIA [id number] [place] [address] [place] Erythrocyte distribution width (RBC) [Ratio] 13.6 % Normal 11.5-15.0 [facility] Comment on above: Order Comment: Speci men Type: BLOOD SPECIMENOrdering Facility: [facility] Address: [address] [place] [address] Performed By: #### 5 7021-8 ####[facility]ASTNCLI [id number] [place] [address] [place] Hematocrit (Bld) [Volume fraction] 36.2 % Normal 36.0-46.0 [facility] Comment on above: Order Comment: Speci men Type: BLOOD SPECIMENOrdering Facility: [facility] Address: [address] [place] [address] Performed By: #### 5 7021-8 ####[facility]NCL[facility] [id number] [place] [address] [place] Hemoglobin (Bld) [Mass/Vol] 12.1 g/dL Normal 11.5-15.5 [facility] Comment on above: Order Comment: Speci men Type: BLOOD SPECIMENOrdering Facility: [facility] Address: [address] [place] [address] Performed By: #### 5 7021-8 ####[facility]NCLI [id number] [place] [address] [place] Immature granulocytes (Bld) [#/Vol] 0.03 10*3/uL Normal <0.10 [facility] [facility] Comment on above: Order Comment: Speci men Type: BLOOD SPECIMENOrdering Facility: [facility] Address: [address] [place] [address] Performed By: #### 5 7021-8 ####[facility]CL[facility] [id number] [place] [address] [place] Immature granulocytes/100 WBC (Bld) 0.3 % Normal [facility] Comment on above: Order Comment: Speci men Type: BLOOD SPECIMENOrdering Facility: [facility] Address: [address] [place] [address] Performed By: #### 5 7021-8 ####[facility] EMILIANAA [id number] [place] [address] [place] Lymphocytes (Bld) [#/Vol] 1.98 10*3/uL Normal 1.00-4.00 [facility] Comment on above: Order Comment: Speci men Type: BLOOD SPECIMENOrdering Facility: [facility] Address: [address] [place] [address] Performed By: #### 5 7021-8 ####[facility] TESHAWILLIAMSBURGMARIA DEL CARMEN [id number] [place] [address] [place] Lymphocytes/100 WBC (Bld) 22.7 % Normal [facility] Comment on above: Order Comment: Speci men Type: BLOOD SPECIMENOrdering Facility: [facility] Address: [address] [place] [address] Performed By: #### 5 7021-8 ####[facility] BOAZNCLATAA [id number] [place] [address] [place] MCH (RBC) [Entitic mass] 28.5 pg Normal 26.0-34.0 [facility] Comment on above: Order Comment: Speci men Type: BLOOD SPECIMENOrdering Facility: [facility] Address: [address] [place] [address] Performed By: #### 5 7021-8 ####[facility] TESHAWILLIAMSBURGNCLIA [id number] [place] [address] [place] MCHC (RBC) [Mass/Vol] 33.4 g/dL Normal 30.5-36.0 [facility] Comment on above: Order Comment: Speci men Type: BLOOD SPECIMENOrdering Facility: [facility] Address: [address] [place] [address] Performed By: #### 5 7021-8 ####[facility] BOAZWNCLIA [id number] [place] [address] [place] MCV (RBC) [Entitic vol] 85.2 fL Normal 80.0-100.[address] [facility] Comment on above: Order Comment: Speci men Type: BLOOD SPECIMENOrdering Facility: [facility] Address: [address] [place] [address], [place] [address] Performed By: #### 5 7021-8 ####[facility]ITALWNCLIA [id number] [place] [address] [place] Monocytes (Bld) [#/Vol] 0.61 10*3/uL Normal <0.87 [facility] Comment on above: Order Comment: Speci men Type: BLOOD SPECIMENOrdering Facility: [facility] Address: [address] [place] [address] Performed By: #### 5 7021-8 ####[facility] CENTERLIA [id number] [place] [address] [place] Monocytes/100 WBC (Bld) 7.0 % Normal [facility] Comment on above: Order Comment: Speci men Type: BLOOD SPECIMENOrdering Facility: [facility] Address: [address] [place] [address] Performed By: #### 5 7021-8 ####[facility]ITALWNCLIA [id number] [place] [address] [place] Neutrophils (Bld) [#/Vol] 5.88 10*3/uL Normal 1.45-7.50 [facility] Comment on above: Order Comment: Speci men Type: BLOOD SPECIMENOrdering Facility: [facility] Address: [address] [place] [address] Performed By: #### 5 7021-8 ####[facility]CL[facility] [id number] [place] [address] [place] Neutrophils/100 WBC (Bld) 67.6 % Normal [facility] Comment on above: Order Comment: Speci men Type: BLOOD SPECIMENOrdering Facility: [facility] Address: [address] [place] [address], [place] [address] Performed By: #### 5 7021-8 ####[facility]NCLI [id number] [place] [address] [place] Nucleated RBC (Bld) [#/Vol] 10*3/uL Normal <0.01 [facility] Comment on above: Order Comment: Speci men Type: BLOOD SPECIMENOrdering Facility: [facility] Address: [address] [place] [address] Performed By: #### 5 7021-8 ####[facility]NCLI [id number] [place] [address] [place] Nucleated RBC/100 WBC (Bld) [Ratio] 0.0 /100 WBC Normal [facility] Comment on above: Order Comment: Speci men Type: BLOOD SPECIMENOrdering Facility: [facility] Address: [address] [place] [address], [place] [address] Performed By: #### 5 7021-8 ####[facility]NCLIA [id number] [place] [address] [place] Platelet mean volume (Bld) [Entitic vol] 9.1 fL Normal 9.0-12.7 [facility] Comment on above: Order Comment: Speci men Type: BLOOD SPECIMENOrdering Facility: [facility] Address: [address] [place] [address] Performed By: #### 5 7021-8 ####[facility]NCLIA [id number] [place] [address] [place] Platelets (Bld) [#/Vol] 630 10*3/uL High 150-400 [facility] Comment on above: Order Comment: Speci men Type: BLOOD SPECIMENOrdering Facility: [facility] Address: [address] [place] [address] Performed By: #### 5 7021-8 ####[facility]NCLIA [id number] [place] [address] [place] RBC (Bld) [#/Vol] 4.25 10*6/uL Normal 3.90-5.20 [facility] Comment on above: Order Comment: Speci men Type: BLOOD SPECIMENOrdering Facility: [facility] Address: [address] [place] [address] Performed By: #### 5 7021-8 ####[facility]CL[facility] [id number] [place] [address] [place] WBC (Bld) [#/Vol] 8.71 10*3/uL Normal 3.70-11.00 [facility] Comment on above: Order Comment: Speci men Type: BLOOD SPECIMENOrdering Facility: [facility] Services Address: [address] [place] [address] Performed By: #### 5 7021-8 ####[facility]NCLIA [id number] [place] [address] [place] CNPNon 11-07-2024 [facility] VAL[facility] ([id number]) 1970 F Date Time Provider Department 11/07/24 YARITZA IZQUIERDO During your visit today, we recorded the following information about you: Yaritza Izquierdo LSW 11/07/2024 9:59 AM Signed 11/07/24 NORMAN called the pt. regarding DIRECTOR OF REVENUE visit and community resources. The pt. stated she was going to return back to work today and she how she does. The pt. stated she is concerned about her medical bills. DIRECTOR OF REVENUE asked the pt. if she applied for Medicaid and she stated that she did but did not qualify due to her working and her income. 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 She stated the Nurse is to come today and she stated she has to be there at 1 PM. SW asked the pt. if she needed help with her care and denied that she did. DIRECTOR OF REVENUE asked the pt. about transportation and the pt. stated she was able to drive herself. The pt. is on [employer] and DIRECTOR OF REVENUE askd the pt. if she spoke to a [facility] Store Standards Associate and she stated she has. The pt. is worrried about personal loan she has of $500 a month and she has her lot rent which includes some utitlies per the pt. The pt. stated she may have to file bankruptcy. DIRECTOR OF REVENUE educated on Agencies that may assist with her lot rent and utilities and educated on Community Geodetic Surveyor Technologist. The pt. stated she has to take care of her client today. The pt. wanted DIRECTOR OF REVENUE to Email her information. Her Email: [email or web address]. The pt. wants to see how she does at work today. DIRECTOR OF REVENUE provided the pt. with her name and phone number. DIRECTOR OF REVENUE will follow-up with the pt. 11/07/24 DIRECTOR OF REVENUE Emailed the pt. information on [employer] : ESTRELLA MAURICE INFORMATION REFERRAL EXCHANGE for information and referrals, Agencies that assist with utilities and rent - [employer], [employer], list of Food Pantries in [facility], Community Geodetic Surveyor Technologist - ESTRELLA. Thank You, Allergies As of Date: 11/07/2024 Noted Allergy Reaction PROZAC (FLUOXETINE HCL) 06/11/2015 14 - Other: See Comments Comments: headaches WELLBUTRIN (BUPROPION HCL) 12/19/2019 14 - Other: See Comments Comments: Increased anxiety and stomach ache Date Reviewed: 11/06/2024 Reviewed by: Isamar Chang RN - Fully Assessed Reason for Visit: Home Care [4073] Prescriptions as of 11/07/2024 - ertapenem sodium (ERTAPENEM INTRAVENOUS) Inject 1 g intravenously once daily. - sodium chloride (NaCl) 0.9% injection solution Inject 10 mL intravenously as directed. Flush before blood draws with 10 mL and after blood draws with 20 mL. Flush before and after each dose with 10 mL. Flush unused lumens with 10 mL daily. - oxyCODONE IR (ROXICODONE) 5 mg immediate release tablet Take 1 tablet by mouth every 6 hours as needed for pain for up to 5 days. - acetaminophen (TYLENOL) 500 mg tablet Take 2 tablets by mouth every 6 hours. - albuterol HFA (PROVENTIL HFA, VENTOLIN HFA) 90 mcg/actuation inhaler Inhale 2 Puffs as instructed every 4 hours as needed for wheezing/shortness of breath. 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.2] 08/07/2016 Emphysema lung (HCC) [J43.9] 08/14/2016 Ovarian cyst, left [N83.202] 09/15/2016 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 [*10/04/2016 Chronic pain of both knees [M25.561, M25.562, G*12/09/2016 Encounter for screening for cardiovascular diso*12/09/2016 Hypokalemia [E87.6] 12/09/2016 11/02/2024 Hyperlipidemia, mixed [E78.2] 02/15/2019 PTSD (post-traumatic stress disorder) [F43.10] 02/08/2024 Panic attack [F41.0] 02/08/2024 Well adult exam [Z00.00] 03/14/2024 KELSI (generalized anxiety disorder) [F41.1] 03/14/2024 Acute appendicitis [K35.80] 10/24/2024 S/P laparoscopic appendectomy [Z90.49] 10/27/2024 Postoperative intra-abdominal abscess (HCC) [T8*10/30/2024 Encounter Status:Closed by YARITZA IZQUIERDO on 11/07/24 Normal [facility] CREATININE BLDon 11-07-2024 Creatinine [Mass/Vol] 0.54 mg/dL Low 0.58-0.96 [facility] Comment on above: Order Comment: Speci men Type: BLOOD SPECIMENOrdering Facility: [facility] Address: [address] [place] [address] Performed By: #### C RET1, 45683-5 ####[facility] [id number] [place] [address] [place] Creatinine and Glomerular filtration rate.predicted panel (S/P/Bld) 108 mL/min/1.73m??? Normal >=60 [facility] Comment on above: Order Comment: Speci men Type: BLOOD SPECIMENOrdering Facility: [facility] Services Address: [address] [place] [address] Result Comment: Zara mated Glomerular Filtration Rate (eGFR) is calculated using the 2020 CKD-EPI creatinine equation. This equation utilizes serum creatinine, sex, and age as parameters. The creatinine assay has traceable calibration to isotope dilution-mass spectrometry. Refer to KDIGO guidelines for clinical interpretation. In patients with unstable renal function, e.g. those with acute kidney injury, the eGFR may not accurately reflect actual GFR. Performed By: #### C RET1, 01278-4 ####[facility]ENTERLI [id number] [place] [address] [place] Hepatic function 2000 panelo n 11-07-2024 Albumin [Mass/Vol] 4.4 g/dL Normal 3.9-4.9 [facility] Comment on above: Order Comment: Speci men Type: BLOOD SPECIMENOrdering Facility: [facility] Address: [address] [place] [address], [place] [address] Performed By: #### C RET1, 93111-9 ####[facility] MARIE MILLTOWNCLIA [id number] [place] [address] [place] ALP [Catalytic activity/Vol] 117 U/L Normal 34-123 [facility] Comment on above: Order Comment: Speci men Type: BLOOD SPECIMENOrdering Facility: [facility] Address: [address] [place] [address], [place] [address] Performed By: #### C ENRICO1, 23441-6 ####[facility]PITALWSERGIOLIA [id number] [place] [address] [place] ALT [Catalytic activity/Vol] 32 U/L Normal 7-38 [facility] Comment on above: Order Comment: Speci men Type: BLOOD SPECIMENOrdering Facility: [facility] Address: [address] [place] [address], [place] [address] Performed By: #### C RET1, 18529-5 ####[facility] MARIE TESHAWNCLIA [id number] [address] STATES OF [facility] AST [Catalytic activity/Vol] 27 U/L Normal 13-35 [facility] Comment on above: Order Comment: Speci men Type: BLOOD SPECIMENOrdering Facility: [facility] Address: [address] [place] [address], [place] [address] Performed By: #### C RET1, 49511-8 ####[facility] MILLWNCLIA [id number] [place] [address] [place] Bilirubin [Mass/Vol] mg/dL Low 0.2-1.3 [facility] Comment on above: Order Comment: Speci men Type: BLOOD SPECIMENOrdering Facility: [facility] Address: [address] [place] [address] Performed By: #### Nayeli WESTON1, 27419-9 ####[facility]CLIA [id number] [address] Bilirubin.conjugated [Mass/Vol] mg/dL Normal <0.3 [facility] Comment on above: Order Comment: Speci men Type: BLOOD SPECIMENOrdering Facility: [facility] Address: [address] [place] [address] Performed By: #### Nayeli WESTON1, 92153-0 ####[facility]ENTERLI [id number] [place] [address] [place] Protein [Mass/Vol] 7.5 g/dL Normal 6.3-8.0 [facility] Comment on above: Order Comment: Speci men Type: BLOOD SPECIMENOrdering Facility: [facility] Address: [address] [place] [address] Performed By: #### Nayeli WESTON1, 83836-6 ####[facility]NCLIA [id number] [address] OF [facility] CNPNon 11-05-2024 [facility] JEN[facility] VALADE[facility] ([id number]) 1970 F Date Time Provider Department 11/05/24 DYAN OLMOS During your visit today, we recorded the following information about you: Dyan Olmos, RN 11/05/2024 12:36 PM Signed During SNV today patient's HR 102. Patient states that that is normal for her. Previous charting shows that patient's HR has been over 100 since discharge. Thank you, EL Hunter Jeffrey A, MD 11/06/2024 8:13 PM Signed When you see her this week please make sure she is having BM's. No abdominal distention, no fever and her pain is less? thanks Allergies As of Date: 11/05/2024 Noted Allergy Reaction PROZAC (FLUOXETINE HCL) 06/11/2015 14 - Other: See Comments Comments: headaches WELLBUTRIN (BUPROPION HCL) 12/19/2019 14 - Other: See Comments Comments: Increased anxiety and stomach ache Date Reviewed: 11/04/2024 Reviewed by: Kirstin Wallace MA - Fully Assessed Reason for Visit: Home Care [4073] Prescriptions as of 11/06/2024 - ertapenem sodium (ERTAPENEM INTRAVENOUS) Inject 1 g intravenously once daily. - sodium chloride (NaCl) 0.9% injection solution Inject 10 mL intravenously as directed. Flush before blood draws with 10 mL and after blood draws with 20 mL. Flush before and after each dose with 10 mL. Flush unused lumens with 10 mL daily. - oxyCODONE IR (ROXICODONE) 5 mg immediate release tablet Take 1 tablet by mouth every 6 hours as needed for pain for up to 5 days. - acetaminophen (TYLENOL) 500 mg tablet Take 2 tablets by mouth every 6 hours. - albuterol HFA (PROVENTIL HFA, VENTOLIN HFA) 90 mcg/actuation inhaler Inhale 2 Puffs as instructed every 4 hours as needed for wheezing/shortness of breath. 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 Metastasis to skin (HCC) [C79.2] 08/07/2016 Emphysema lung (HCC) [J43.9] 08/14/2016 Ovarian cyst, left [N83.202] 09/15/2016 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 [*10/04/2016 Chronic pain of both knees [M25.561, M25.562, G*12/09/2016 Encounter for screening for cardiovascular diso*12/09/2016 Hypokalemia [E87.6] 12/09/2016 11/02/2024 Hyperlipidemia, mixed [E78.2] 02/15/2019 PTSD (post-traumatic stress disorder) [F43.10] 02/08/2024 Panic attack [F41.0] 02/08/2024 Well adult exam [Z00.00] 03/14/2024 KELSI (generalized anxiety disorder) [F41.1] 03/14/2024 Acute appendicitis [K35.80] 10/24/2024 S/P laparoscopic appendectomy [Z90.49] 10/27/2024 Postoperative intra-abdominal abscess (HCC) [T8*10/30/2024 Encounter Status:Closed by DYAN OLMOS on 11/05/24 [facility] CNOVon 11-04-2024 CNOV Office Visit (FAMPWS) JENNA VALADEZ ([id number]) 1970 F Date Time Provider Department 11/04/24 2:40 PM ELENA ISBELL During your visit today, we recorded the following information about you: Pulse Blood pressure Weight 106/minute 124/83 57 kg Elena Isbell, MEDICAL ADMINISTRATOR.CURING PRESS OPERATOR 11/04/2024 2:49 PM Signed Chief Complaint Patient presents with: Hospital F/U HPI Jenna Valadez is a 54 year old female who presents here today for Above Complaints.. Patient presents for hospital follow up. Patient was seen in [place] for postoperative abscess following appendectomy. Patient is currently receiving [facility] for IV antibiotics as abscess could not be drained due to location, has PICC line. F/U 11/17 with surgery.Patient reports Past medical history, appointments, medications, allergies reviewed. Previous Medical History PAST MEDICAL HISTORY Diagnosis Date Anxiety Depression Emphysema lung (HCC) 08/14/2016 Hypokalemia Hypomagnesemia Low HDL (under 40) Previous Surgical History PAST SURGICAL HISTORY Procedure Laterality Date COLONOSCOPY 08/19/2016 EGD 08/19/2016 Family History FAMILY HISTORY Problem Relation Age of Onset Breast Cancer Mother Heart Maternal Grandmother Diabetes Maternal Grandmother Arthritis Maternal Uncle Breast Cancer Sister Breast Cancer Paternal Aunt Patient Allergies ALLERGIES Allergen Reactions Prozac [Fluoxetine * Other: See Comments headaches Wellbutrin [Bupropi* Other: See Comments Increased anxiety and stomach ache Current Medications Current Outpatient Medications on File Prior to Visit Medication Sig ertapenem sodium (ERTAPENEM INTRAVENOUS) Inject 1 g intravenously once daily. sodium chloride (NaCl) 0.9% injection solution Inject 10 mL intravenously as directed. Flush before blood draws with 10 mL and after blood draws with 20 mL. Flush before and after each dose with 10 mL. Flush unused lumens with 10 mL daily. oxyCODONE IR (ROXICODONE) 5 mg immediate release tablet Take 1 tablet by mouth every 6 hours as needed for pain for up to 5 days. acetaminophen (TYLENOL) 500 mg tablet Take 2 tablets by mouth every 6 hours. albuterol HFA (PROVENTIL HFA, VENTOLIN HFA) 90 mcg/actuation inhaler Inhale 2 Puffs as instructed every 4 hours as needed for wheezing/shortness of breath. No current facility-administere d medications on file prior to visit. Social History Social History Tobacco Use Smoking status: Every Day Current packs/day: 1.00 Average packs/day: 1 pack/day for 25.0 years (25.0 ttl pk-yrs) Types: Cigarettes Smokeless tobacco: Never Vaping Use Vaping status: Never Used Substance Use Topics Alcohol use: No Drug use: Not Currently Types: Marijuana Review of Symptoms REVIEW OF SYSTEMS SEE HPI EXAM: BP 124/83 Pulse 106 Wt 57 kg (125 lb 10.6 oz) LMP (LMP Unknown) BMI 23.42 kg/m? General Appearance: Well appearing, alert, in no acute distress, well-hydrated, well nourished. Abdomen: Positive findings: distended, tenderness mild RLQ, Wound: healing, steri strips in place x3, no redness swelling or drainage noted. . Extremities: No deformities, edema, skin discoloration, clubbing or cyanosis. Good capillary refill. . PICC to right upper arm. Health Maintenance List Hepatitis B Vaccine(1 of 3 - 19+ 3-dose series) Never done Alpha-1 Antitrypsin Deficiency Screening Never done Mammogram Screening due on 08/04/2017 Shingrix Vaccine(1 of 2) Never done Influenza Vaccine(1) due on 05/01/2024 Covid-19 Vaccine( season) due on 05/01/2024 Pneumococcal Vaccine: 50+(3 of 3 - PCV20 or PCV21) due on 11/14/2024 Hepatitis C Screening due on 01/11/2025 HIV Screening due on 01/11/2025 Spirometry due on 03/14/2025 Lung Cancer Screening due on 03/14/2025 Cervical Cancer Screening due on 03/14/2025 Annual PCP Team Chronic Disease Visit due on 03/28/2025 DTaP,Tdap,Td Vaccine(2 - Td or Tdap) due on 04/15/2026 Colorectal Cancer Screening due on 08/19/2026 Diabetes Screening due on 11/03/2027 Lipid Screening due on 01/11/2029 ASSESSMENT/PLAN: 1. Postoperative intra-abdominal abscess (HCC) - ICD9: 998.59, 567.22, ICD10: T81.43XA, K65.1 (primary diagnosis) -continue IV antibiotics per hospital d/c. Follow up with surgery as scheduled. -[facility] following while on IV ATB and for PICC care. 2. Hypokalemia - ICD9: 276.8, ICD10: E87.6 - POTASSIUM Elena Isbell APRN.CURING PRESS OPERATOR Allergies As of Date: 11/04/2024 Noted Allergy Reaction PROZAC (FLUOXETINE HCL) 06/11/2015 14 - Other: See Comments Comments: headaches WELLBUTRIN (BUPROPION HCL) 12/19/2019 14 - Other: See Comments Comments: Increased anxiety and stomach ache Date Reviewed: 11/04/2024 Reviewed by: Kirstin Wallace MA - Fully Assessed Reason for Visit: Hospital F/U [57] Primary Visit Diagnosis:Postoperat opal intra-abdominal abscess (HCC) [T81.4 (more content not included)... Normal [facility] CNPNon 11-03-2024 CNPN Telephone (HCSIND) JENNA VALADEZ ([id number]) 1970 F Date Time Provider Department 11/03/24 JAME HESS HCSIND During your visit today, we recorded the following information about you: Jame Hess RN 11/03/2024 9:53 PM Signed I am the home care nurse who saw this today to start services. Pt requesting help with financial assistance, I placed an 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 MACHINE TENDER referral. Thank you Allergies As of Date: 11/03/2024 Noted Allergy Reaction PROZAC (FLUOXETINE HCL) 06/11/2015 14 - Other: See Comments Comments: headaches WELLBUTRIN (BUPROPION HCL) 12/19/2019 14 - Other: See Comments Comments: Increased anxiety and stomach ache Date Reviewed: 11/03/2024 Reviewed by: Jame Hess RN - Fully Assessed Reason for Visit: Home Care [4073] Cmt: 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 MACHINE TENDER referral placed for financial assistance Prescriptions as of 11/03/2024 - ertapenem sodium (ERTAPENEM INTRAVENOUS) Inject 1 g intravenously once daily. - sodium chloride (NaCl) 0.9% injection solution Inject 10 mL intravenously as directed. Flush before blood draws with 10 mL and after blood draws with 20 mL. Flush before and after each dose with 10 mL. Flush unused lumens with 10 mL daily. - oxyCODONE IR (ROXICODONE) 5 mg immediate release tablet Take 1 tablet by mouth every 6 hours as needed for pain for up to 5 days. - acetaminophen (TYLENOL) 500 mg tablet Take 2 tablets by mouth every 6 hours. - albuterol HFA (PROVENTIL HFA, VENTOLIN HFA) 90 mcg/actuation inhaler Inhale 2 Puffs as instructed every 4 hours as needed for wheezing/shortness of breath. 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 [*10/04/2016 Chronic pain of both knees [M25.561, M25.562, G*12/09/2016 Encounter for screening for cardiovascular diso*12/09/2016 Hypokalemia [E87.6] 12/09/2016 11/02/2024 Hyperlipidemia, mixed [E78.2] 02/15/2019 PTSD (post-traumatic stress disorder) [F43.10] 02/08/2024 Panic attack [F41.0] 02/08/2024 Well adult exam [Z00.00] 03/14/2024 KELSI (generalized anxiety disorder) [F41.1] 03/14/2024 Acute appendicitis [K35.80] 10/24/2024 S/P laparoscopic appendectomy [Z90.49] 10/27/2024 Postoperative intra-abdominal abscess (HCC) [T8*10/30/2024 Encounter Status:Closed by JAME HESS on 11/03/24 [facility] JENNA VALADEZ ([id number]) 1970 F Date Time Provider Department 11/03/24 GISSELLE LABOY During your visit today, we recorded the following information about you: Saige Perez RN 11/03/2024 12:42 PM Signed Patient call. She was just discharged from hospital yesterday following abdominal abscess.and states her potassium was quite low. She is wondering why she has no prescription for a potassium supplement? Please advise and call back [phone] (home) [phone] (cell) Note that potassium on 11/02/24 was 4.7 Advised patient of this. She has appt with her PCP SERVANDO tomorrow. She will discuss her labs then. Encounter closed. Allergies As of Date: 11/03/2024 Noted Allergy Reaction PROZAC (FLUOXETINE HCL) 06/11/2015 14 - Other: See Comments Comments: headaches WELLBUTRIN (BUPROPION HCL) 12/19/2019 14 - Other: See Comments Comments: Increased anxiety and stomach ache Date Reviewed: 11/02/2024 Reviewed by: Shelia Whitten RN - Fully Assessed Reason for Visit: Patient Question [3962] Prescriptions as of 11/03/2024 - oxyCODONE IR (ROXICODONE) 5 mg immediate release tablet Take 1 tablet by mouth every 6 hours as needed for pain for up to 5 days. - acetaminophen (TYLENOL) 500 mg tablet Take 2 tablets by mouth every 6 hours. - albuterol HFA (PROVENTIL HFA, VENTOLIN HFA) 90 mcg/actuation inhaler Inhale 2 Puffs as instructed every 4 hours as needed for wheezing/shortness of breath. 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 [*10/04/2016 Chronic pain of both knees [M25.561, M25.562, G*12/09/2016 Encounter for screening for cardiovascular diso*12/09/2016 Hypokalemia [E87.6] 12/09/2016 11/02/2024 Hyperlipidemia, mixed [E78.2] 02/15/2019 PTSD (post-traumatic stress disorder) [F43.10] 02/08/2024 Panic attack [F41.0] 02/08/2024 Well adult exam [Z00.00] 03/14/2024 KELSI (generalized anxiety disorder) [F41.1] 03/14/2024 Acute appendicitis [K35.80] 10/24/2024 S/P laparoscopic appendectomy [Z90.49] 10/27/2024 Postoperative intra-abdominal abscess (HCC) [T8*10/30/2024 Encounter Status:Closed by SAIGE PEREZ on 11/03/24 Normal [facility] CBC panel Auto (Bld)on 11-02 Erythrocyte distribution width (RBC) [Ratio] 14.1 % Normal 11.5-15.0 [facility] Comment on above: Order Comment: Speci men Type: BLOOD SPECIMEN Ordering Facility: [facility] Address: [address] [place] [address] Performed By: #### 5 8410-2 #### [facility] CLIA [id number] [address] Hematocrit (Bld) [Volume fraction] 34.4 % Low 36.0-46.0 [facility] Comment on above: Order Comment: Speci men Type: BLOOD SPECIMEN Ordering Facility: [facility] Address: [address] [place] [address] Performed By: #### 5 8410-2 #### [facility] CLIA [id number] [address] Hemoglobin (Bld) [Mass/Vol] 11.5 g/dL Normal 11.5-15.5 [facility] Comment on above: Order Comment: Speci men Type: BLOOD SPECIMEN Ordering Facility: [facility] Address: [address] [place] [address] Performed By: #### 5 8410-2 #### [facility] CLIA [id number] [address] MCH (RBC) [Entitic mass] 29.2 pg Normal 26.0-34.0 [facility] Comment on above: Order Comment: Speci men Type: BLOOD SPECIMEN Ordering Facility: [facility] Address: [address] [place] [address] Performed By: #### 5 8410-2 #### [facility] CLIA [id number] [address] MCHC (RBC) [Mass/Vol] 33.4 g/dL Normal 30.5-36.0 [facility] Comment on above: Order Comment: Speci men Type: BLOOD SPECIMEN Ordering Facility: [facility] Address: [address] [place] [address] Performed By: #### 5 8410-2 #### [facility] CLIA [id number] [address] MCV (RBC) [Entitic vol] 87.3 fL Normal 80.0-100.0 [facility] Comment on above: Order Comment: Speci men Type: BLOOD SPECIMEN Ordering Facility: [facility] Address: [address] [place] [address] Performed By: #### 5 8410-2 #### [facility] CLIA [id number] [address] [place] [address] [place] Nucleated RBC (Bld) [#/Vol] 10*3/uL Normal <0.01 [facility] Comment on above: Order Comment: Speci men Type: BLOOD SPECIMEN Ordering Facility: [facility] Address: [address] [place] [address] Performed By: #### 5 8410-2 #### [facility] CLIA [id number] [address] [place] [address] [place] Platelet mean volume (Bld) [Entitic vol] 8.5 fL Low 9.0-12.7 [facility] Comment on above: Order Comment: Speci men Type: BLOOD SPECIMEN Ordering Facility: [facility] Address: [address] [place] [address] Performed By: #### 5 8410-2 #### [facility] CLIA [id number] [address] [place] Platelets (Bld) [#/Vol] 514 10*3/uL High 150-400 [facility] Comment on above: Order Comment: Speci men Type: BLOOD SPECIMEN Ordering Facility: [facility] Address: [address] [place] [address] Performed By: #### 5 8410-2 #### [facility] CLIA [id number] [address] [place] [address] [place] RBC (Bld) [#/Vol] 3.94 10*6/uL Normal 3.90-5.20 [facility] Comment on above: Order Comment: Speci men Type: BLOOD SPECIMEN Ordering Facility: [facility] Address: [address] [place] [address] Performed By: #### 5 8410-2 #### [facility] CLIA [id number] [address] [place] [address] [place] WBC (Bld) [#/Vol] 9.98 10*3/uL Normal 3.70-11.00 [facility] Comment on above: Order Comment: Darrel parson Type: BLOOD SPECIMEN Ordering Facility: [facility] Address: [address] [place] [address] Performed By: #### 5 8410-2 #### [facility] CLIA [id number] [address] [place] [address] [place] CNCOon 11-02-2024 CNCO Letter Text Normal [facility] CNDSon 11-02-2024 CNDS HNO ID: [id number] Author: KUSHAL BOSCH MD Service: General Surgery Author Type: Nurse Practitioner Type: Discharge Summary Filed: 11/03/2024 20:18 Note Text: Attestation signed by Kushal Bosch MD at 11/03/2024 8:18 PM Attending Note I have personally performed a face to face assessment of the patient and have reviewed the SHANTI note. I performed a substantive portion of the visit including all aspects of the following. My caballero findings include: Patient doing well ready for discharge Other additions or changes: None Signature: Kushal Bosch MD Date: 11/03/2024 Time: 8:18 PM DISCHARGE SUMMARY PATIENT NAME: Jenna Valadez Code Status: Not on file Highest Readmission Risk Score: 19 The 30 day readmissions risk score is derived from an internally validated risk model which evaluates patient level characteristics, utilization history, medication orders and lab results up until the day of discharge. Patients with a score of 39 or above are considered highest risk for readmission. Specific patient level drivers will be listed at the bottom of the summary. Admission Information Admission Information ADMIT DATE: 10/30/2024 DISCHARGE DATE: 11/02/2024 MY DOCTORS AND MEDICAL TEAM: My Main Hospital Doctor: Gisselle Laboy MD Primary Care Provider: Anmol Chen MD My Medical Team Members: Treatment Team: Attending Provider: Gisselle Laboy MD Consulting: Guillermo Monique MD MY CONDITION AT DISCHARGE: Stable REASON I WAS IN THE HOSPITAL: acute appendicitis SUMMARY OF WHAT HAPPENED WHILE I WAS IN THE HOSPITAL: You came into the emergency department with abdominal pain bloating post-op from appendectomy 10/25/2024 by and was discharged home on Augmentin. In the ED you had a CT scan revealed postoperative abscess. IR was consulted for possible drain placement but due to location drain was not placed. You were admitted to the regular nursing floor for further monitoring and ID was consulted for antibiotic recommendations. It is recommended for further IV antibiotic. You are be discharged home with a PICC and IV antibiotics. Follow up with Surgery in 7-10 days OTHER PROBLEMS/DIAGNOSIS: Principal Problem: Postoperative intra-abdominal abscess (HCC) Active Problems: Hypokalemia Resolved Problems: * No resolved hospital problems. * OPERATIONS PERFORMED WHILE IN THE HOSPITAL: laparoscopic appendectomy IMPORTANT TEST/PROCEDURES: No procedures performed TEST RESULTS NOT AVAILABLE AT THIS TIME: Pathology results Discharge Disposition Discharge Disposition: Home With Self Care Activity When You Leave the Hospital Lifting is restricted to: No lifting >20 lbs until post op appointment May shower May shower; no baths, hot tub or pool May use stairs No driving for: While on narcotic pain medication No prolonged bedrest, longer than 8 hours in a 24 hour period No walking restrictions Resume pre-hospital activity No lifting >20lbs until post op Diet Instructions Drink 6 to 8 glasses of fluids per day Resume your pre-hospital diet For Pain When You Leave the Hospital Apply a covered cold pack to the area No alcohol or driving while on pain medication Use acetaminophen (Tylenol) as recommended on the bottle Use ibuprofen (Motrin, Advil) as recommended on the bottle Use the dispensed medication (see prescription) Tylenol (acetaminophen) up to 650mg (2 over the counter 325mg) every 6 hours Motrin (ibuprofen) up to 800mg (4 over the counter 200mg) every 6 hours between tylenol Roxicodone 5mg every 6 hours as needed for pain. You should use an eyvw-tzj-wzrfrwh stool softener (Docusate sodium) and/or a fiber supplement (Metamucil, Fiber Con) every day while taking prescribed pain medication Wound/Surgical Site Care Leave open to air Some bleeding from the wound/surgical site can be expected. If excessive, see a doctor at once Wash your hands frequently, especially before touching your incision, after using restroom and before eating Call Your Doctor If There is an unusual odor from the wound area There is severe pain at the operative site You have difficulty urinating or pain when urinating You have lightheadedness, fainting, or confusion You have pain and swelling in your legs, especially if it is only on one side and not the other You have persistent nausea/vomiting over 24 hours You have redness, swelling, pus or drainage from the wound Your temperature is greater than 101F Additional Provider to Provider Information: S/p appendectomy post-op abscess Treatment Team: Consulting: Guillermo Monique MD Transitions of Care Critical Issues: LABS AND PROCEDURES PENDING AT DISCHARGE: No pending results. FOLLOW-UP APPOINTMENTS ALREADY SC (more content not included)... [facility] 11-02-2024 [facility] Telephone (DANIKA) JENNA VALADEZ ([id number]) 1970 F Date Time Provider Department 11/02/24 CHINA MCRAE During your visit today, we recorded the following information about you: China Mcrae LPN 11/02/2024 1:35 PM Signed CONFIRMATION CALL a. Date and Time: 1:27 PM 11/02/2024 b. Contact name/relationship: Jenna/rafaela C. Service Address- [address] [place] [address] [address] [facility] [address] Home or Apartment: [facility] Have you been active with any Home Care company in the last 60 days? No. Caregiver: Yes - Caregiver name Jenna and mother ; spoke with Jenna to confirm (CG must be available for SOC/BRANDON and the following 3-4 visits or until independent) Have you received the flu shot? No POLINA Poole Michelina, LPN 11/02/2024 2:32 PM Signed Spoke with Jenna to confirm discharge today. Discussed pharmacy delivery this evening and a SOC 11/03. Jenna in agreement. China Mcrae LPN [facility] Admissions Intake Nurse Allergies As of Date: 11/02/2024 Noted Allergy Reaction PROZAC (FLUOXETINE HCL) 06/11/2015 14 - Other: See Comments Comments: headaches WELLBUTRIN (BUPROPION HCL) 12/19/2019 14 - Other: See Comments Comments: Increased anxiety and stomach ache Date Reviewed: 11/02/2024 Reviewed by: Shelia Whitten RN - Fully Assessed Reason for Visit: Home Care [4073] Cmt: Confirmation Call Prescriptions as of 11/02/2024 - oxyCODONE IR (ROXICODONE) 5 mg immediate release tablet Take 1 tablet by mouth every 6 hours as needed for pain for up to 5 days. - acetaminophen (TYLENOL) 500 mg tablet Take 2 tablets by mouth every 6 hours. - albuterol HFA (PROVENTIL HFA, VENTOLIN HFA) 90 mcg/actuation inhaler Inhale 2 Puffs as instructed every 4 hours as needed for wheezing/shortness of breath. Facility-Administere d Medications as of 11/02/2024 - lidocaine 10 mg/mL (1 %) 10-100 mg injection (XYLOCAINE) - ertapenem 1 g in NaCl 0.9% 100 mL Vial-Bag (INVanz) - morphine 2 mg injection - oxyCODONE IR 5 mg tab(s) (ROXICODONE) - acetaminophen 1,000 mg tab(s) (TYLENOL) - NaCl 0.9% iv flush bag - ondansetron (PF) 4 mg injection (ZOFRAN) - nicotine 21 mg/24 hr 1 Patch (NICODERM) - nicotine -- REMOVE patch - nicotine - verify patch - nicotine polacrilex 2 mg gum (NICORETTE) - potassium chloride ER 40 mEq tab(s) (KLOR-CON) - melatonin 6 mg tab(s) Problem List As Of Date 11/02/2024 Noted Resolved Depression [F32.A] 09/13/2011 Situational anxiety [F41.8] 10/12/2012 03/14/2024 Smoker [F17.200] 09/28/2013 SOB (shortness of breath) [R06.02] 09/28/2013 Snores [R06.83] 09/28/2013 Hypomagnesemia [E83.42] Vitamin D deficiency [E55.9] 11/20/2015 Sacral back pain [M53.3] 12/31/2015 Family history of breast cancer [Z80.3] 06/26/2016 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 Metastasis to skin (HCC) [C79.2] 08/07/2016 Emphysema lung (HCC) [J43.9] 08/14/2016 Ovarian cyst, left [N83.202] 09/15/2016 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 [*10/04/2016 Chronic pain of both knees [M25.561, M25.562, G*12/09/2016 Encounter for screening for cardiovascular diso*12/09/2016 Hypokalemia [E87.6] 12/09/2016 11/02/2024 Hyperlipidemia, mixed [E78.2] 02/15/2019 PTSD (post-traumatic stress disorder) [F43.10] 02/08/2024 Panic attack [F41.0] 02/08/2024 Well adult exam [Z00.00] 03/14/2024 KELSI (generalized anxiety disorder) [F41.1] 03/14/2024 Acute appendicitis [K35.80] 10/24/2024 S/P laparoscopic appendectomy [Z90.49] 10/27/2024 Postoperative intra-abdominal abscess (HCC) [T8*10/30/2024 Encounter Status:Closed by CHINA MCRAE on 11/02/24 [facility] Telephone (HCSIND) JENNA VALADEZ ([id number]) 1970 F Date Time Provider Department 11/02/24 CHINA MCRAE During your visit today, we recorded the following information about you: China Mcrae LPN 11/02/2024 12:29 PM Signed Anmol Chen MD Please advise if you are agreeable to signing and following for HHC services? Our Clinicians will be sending the Plan of Care to you for review and approval. They will reach out for any appropriate orders required to provide home care services for the patient. We are not able to initiate HHC services without a following provider. Home care clinicians may also obtain orders from [facility] Providers Thank you and we would be happy to answer any questions. China Mcrae LPN 11/02/2024 12:29 PM Anmol Chen MD 11/02/2024 1:05 PM Signed Yes I will follow. However the F2F form needs signed by the provider who did the exam and felt she needed HHC services and ordered them. Allergies As of Date: 11/02/2024 Noted Allergy Reaction PROZAC (FLUOXETINE HCL) 06/11/2015 14 - Other: See Comments Comments: headaches WELLBUTRIN (BUPROPION HCL) 12/19/2019 14 - Other: See Comments Comments: Increased anxiety and stomach ache Date Reviewed: 11/02/2024 Reviewed by: Shelia Whitten RN - Fully Assessed Reason for Visit: Home Care [4073] Cmt: MD to follow Prescriptions as of 11/02/2024 - acetaminophen (TYLENOL) 500 mg tablet Take 2 tablets by mouth every 6 hours. - ondansetron (ZOFRAN) 4 mg tablet Take 1 tablet by mouth every 8 hours as needed for nausea/vomiting for up to 14 days. - albuterol HFA (PROVENTIL HFA, VENTOLIN HFA) 90 mcg/actuation inhaler Inhale 2 Puffs as instructed every 4 hours as needed for wheezing/shortness of breath. Facility-Administere d Medications as of 11/02/2024 - lidocaine 10 mg/mL (1 %) 10-100 mg injection (XYLOCAINE) - ertapenem 1 g in NaCl 0.9% 100 mL Vial-Bag (INVanz) - morphine 2 mg injection - oxyCODONE IR 5 mg tab(s) (ROXICODONE) - acetaminophen 1,000 mg tab(s) (TYLENOL) - NaCl 0.9% iv flush bag - ondansetron (PF) 4 mg injection (ZOFRAN) - nicotine 21 mg/24 hr 1 Patch (NICODERM) - nicotine -- REMOVE patch - nicotine - verify patch - nicotine polacrilex 2 mg gum (NICORETTE) - potassium chloride ER 40 mEq tab(s) (KLOR-CON) - melatonin 6 mg tab(s) Problem List As Of Date 11/02/2024 Noted Resolved Depression [F32.A] 09/13/2011 Situational anxiety [F41.8] 10/12/2012 03/14/2024 Smoker [F17.200] 09/28/2013 SOB (shortness of breath) [R06.02] 09/28/2013 Snores [R06.83] 09/28/2013 Hypomagnesemia [E83.42] Vitamin D deficiency [E55.9] 11/20/2015 Sacral back pain [M53.3] 12/31/2015 Family history of breast cancer [Z80.3] 06/26/2016 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 Metastasis to skin (HCC) [C79.2] 08/07/2016 Emphysema lung (HCC) [J43.9] 08/14/2016 Ovarian cyst, left [N83.202] 09/15/2016 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 [*10/04/2016 Chronic pain of both knees [M25.561, M25.562, G*12/09/2016 Encounter for screening for cardiovascular diso*12/09/2016 Hypokalemia [E87.6] 12/09/2016 11/02/2024 Hyperlipidemia, mixed [E78.2] 02/15/2019 PTSD (post-traumatic stress disorder) [F43.10] 02/08/2024 Panic attack [F41.0] 02/08/2024 Well adult exam [Z00.00] 03/14/2024 KELSI (generalized anxiety disorder) [F41.1] 03/14/2024 Acute appendicitis [K35.80] 10/24/2024 S/P laparoscopic appendectomy [Z90.49] 10/27/2024 Postoperative intra-abdominal abscess (HCC) [T8*10/30/2024 Encounter Status:Closed by CHINA MCRAE on 11/02/24 [facility] CONSULTon 11-02-2024 CONSULT HNO ID: [id number] Author: GUILLERMO MONIQUE MD Service: Infectious Disease Author Type: Physician Type: Consults Filed: 11/02/2024 09:58 Note Text: INFECTIOUS DISEASE INITIAL CONSULT SERVICE DATE: 11/01/2024 SERVICE TIME: 10:48 AM REASON FOR CONSULT: Abd abscess Subjective Patient is seen at the request of Dr Laboy. My final recommendations will be communicated back to the requesting physician by way of copy of this note or shared electronic medical record. HPI: Jenna Valadez who is a 54 year old female with a PMHx anxiety, depression, emphysema, and low HDL. Who presents to the ED for postoperative fever and abdominal pain and bloating. Recent admission was that she was admitted on 10/24/2024 for acute appendicitis had a laparoscopic appendectomy on 10/25/[address] Bosch. She was discharged home on Augmentin. PAST MEDICAL HISTORY Diagnosis Date Anxiety Depression Emphysema lung (HCC) 08/14/2016 Hypokalemia Hypomagnesemia Low HDL (under 40) PAST SURGICAL HISTORY Procedure Laterality Date COLONOSCOPY 08/19/2016 EGD 08/19/2016 Social History Tobacco Use Smoking status: Every Day Current packs/day: 1.00 Average packs/day: 1 pack/day for 25.0 years (25.0 ttl pk-yrs) Types: Cigarettes Smokeless tobacco: Never Vaping Use Vaping status: Never Used Substance Use Topics Alcohol use: No Drug use: Not Currently Types: Marijuana FAMILY HISTORY Problem Relation Age of Onset Breast Cancer Mother Heart Maternal Grandmother Diabetes Maternal Grandmother Arthritis Maternal Uncle Breast Cancer Sister Breast Cancer Paternal Aunt Immunization History Administered Date(s) Administered COVID-19 original vaccine, age 12+ yr, monovalent (PFIZER-BIONTECH - TERRY TOP) 03/13/2022 COVID-19 original vaccine, age 12+ yr, monovalent (PFIZER-BIONTECH - PURPLE TOP) 09/21/2020 10/12/2020 06/10/2021 influenza (IIV4) vaccine, age 6 mo - 64 yr, quadrivalent (AFLURIA, FLULAVAL, FLUZONE) 06/26/2016 11/15/2019 pneumococcal conjugate (PCV13) vaccine, 13 valent (PREVNAR 13) 11/15/2019 pneumococcal polysaccharide (PPV23) vaccine, 23 valent (PNEUMOVAX 23) 07/12/2012 tetanus diphtheria pertussis (Tdap) vaccine, age 7+ yr (ADACEL, BOOSTRIX) 04/15/2016 tuberculin skin test (TST-PPD), purified protein derivative, intradermal 04/23/2016 Current Facility-Administere d Medications Medication Dose Route Frequency oxyCODONE IR 5 mg tab(s) (ROXICODONE) 5 mg ORAL q 6 H PRN cefTRIAXone 2 g in D5W 100 mL Vial-Bag (ROCEPHIN) 2 g INTRAVENOUS q 24 H acetaminophen 1,000 mg tab(s) (TYLENOL) 1,000 mg ORAL q 6 H NaCl 0.9% iv flush bag 20 mL INTRAVENOUS PRN metroNIDAZOLE iv piggyback 500 mg in NaCl (iso-osmotic) 100 mL (FLAGYL) 500 mg INTRAVENOUS q 8 H ondansetron (PF) 4 mg injection (ZOFRAN) 4 mg INTRAVENOUS q 6 H PRN morphine 2 mg injection 2 mg INTRAVENOUS q 3 H PRN nicotine 21 mg/24 hr 1 Patch (NICODERM) 1 Patch TRANSDERMAL DAILY And nicotine -- REMOVE patch OTHER DAILY And nicotine - verify patch OTHER q 8 H nicotine polacrilex 2 mg gum (NICORETTE) 2 mg ORAL q 2 H PRN potassium chloride ER 40 mEq tab(s) (KLOR-CON) 40 mEq ORAL DAILY melatonin 6 mg tab(s) 6 mg ORAL DAILY (8 PM) ALLERGIES Allergen Reactions Prozac [Fluoxetine * Other: See Comments headaches Wellbutrin [Bupropi* Other: See Comments Increased anxiety and stomach ache REVIEW OF SYSTEMS: ROS checked in details x 10 systems and is negative except as noted in the HPI. All qs answered. Objective PHYSICAL EXAM: Temp (24hrs), Av.7 ?C (98.1 ?F), Min:36.5 ?C (97.7 ?F), Max:36.9 ?C (98.4 ?F) BP 103/62 Pulse 91 Temp 36.8 ?C (98.2 ?F) (Oral) Resp 16 Ht 156 cm (5' 1.42) Wt 59.3 kg (130 lb 11.7 oz) LMP (LMP Unknown) SpO2 97% BMI 24.37 kg/m? GENERAL APPEARANCE: Alert, NAD SKIN: No rashes NECK: Supple BACK: no CVAT. LUNGS: Clear HEART: Regular rate/rhythm, normal heart sounds, and no murmurs. ABDOMEN: Soft, mildly tender, no palpable masses, normal bowel sounds. EXTREMITIES: No edema or tenderness: NEURO: Awake, alert DATA: Diagnostic tests reviewed for today's visit: Labs: Recent Labs 11/02/24 0638 11/01/24 0311 10/31/24 0843 10/31/24 0324 WBC 9.98 7.67 -- 8.75 HB 11.5 11.4* -- 11.0* HCT 34.4* 33.5* -- 32.2* PLT 514* 495* -- 468* INR -- -- 1.2 -- NA 140 140 -- 141 K 4.7 3.9 -- 3.8 CHLOR 103 103 -- 104 CO2 25 27 -- 26 BUN 7 8 -- 6* CREAT 0.73 0.70 -- 0.65 UA: Lab Results Component Value Date SPGR 1.015 10/29/2024 SPGR 1.015 11/24/2018 UGLUC Negative 10/29/2024 UGLUC NEGATIVE 11/24/2018 UBILI Negative 10/29/2024 UBILI NEGATIVE 11/24/2018 UKET Negative 10/29/2024 UKET NEGATIVE 11/24/2018 UHB Negative 10/29/2024 UHB 3+ 12/09/2016 UPROT Negative 10/29/2024 UPROT NEGATIVE 11/24/2018 UROBIL 0.2 11/24/2018 UWBC 0-5 /HPF 10/29/2024 UWBC 0-5 12/09/2016 UWBC neg 11/19/2015 WSR: Lab Results Component Value (more content not included)... Normal [facility] Comprehensive metabolic 2000 panelon 11-02-2024 Albumin [Mass/Vol] 3.6 g/dL Low 3.9-4.9 [facility] Comment on above: Order Comment: Speci men Type: BLOOD SPECIMEN Ordering Facility: [facility] Address: [address] [place] [address] Performed By: #### 2 4323-8 #### [facility] CLIA [id number] [address] ALP [Catalytic activity/Vol] 96 U/L Normal 34-123 [facility] Comment on above: Order Comment: Speci men Type: BLOOD SPECIMEN Ordering Facility: [facility] Address: [address] [place] [address] Performed By: #### 2 4323-8 #### [facility] CLIA [id number] [address] ALT [Catalytic activity/Vol] 71 U/L High 7-38 [facility] Comment on above: Order Comment: Speci men Type: BLOOD SPECIMEN Ordering Facility: [facility] Address: [address] [place] [address] Performed By: #### 2 4323-8 #### [facility] CLIA [id number] [address] Anion gap [Moles/Vol] 12 mmol/L Normal 8-15 [facility] Comment on above: Order Comment: Speci men Type: BLOOD SPECIMEN Ordering Facility: [facility] Address: [address] [place] [address] Performed By: #### 2 4323-8 #### [facility] CLIA [id number] [address] [place] AST [Catalytic activity/Vol] 158 U/L High 13-35 [facility] Comment on above: Order Comment: Speci men Type: BLOOD SPECIMEN Ordering Facility: [facility] Address: [address] [place] [address] Performed By: #### 2 4323-8 #### [facility] CLIA [id number] [address] [place] [address] [place] Bilirubin [Mass/Vol] mg/dL Low 0.2-1.3 [facility] Comment on above: Order Comment: Speci men Type: BLOOD SPECIMEN Ordering Facility: [facility] Address: [address] [place] [address] Performed By: #### 2 4323-8 #### [facility] CLIA [id number] [address] [place] [address] [place] Calcium [Mass/Vol] 9.8 mg/dL Normal 8.5-10.2 [facility] Comment on above: Order Comment: Speci men Type: BLOOD SPECIMEN Ordering Facility: [facility] Address: [address] [place] [address] Performed By: #### 2 4323-8 #### [facility] CLIA [id number] [address] [place] Chloride [Moles/Vol] 103 mmol/L Normal 98-107 [facility] Comment on above: Order Comment: Speci men Type: BLOOD SPECIMEN Ordering Facility: [facility] Address: [address] [place] [address] Performed By: #### 2 4323-8 #### [facility] CLIA [id number] [address] [place] CO2 [Moles/Vol] 25 mmol/L Normal 22-30 [facility] Comment on above: Order Comment: Speci men Type: BLOOD SPECIMEN Ordering Facility: [facility] Address: [address] [place] [address] Performed By: #### 2 4323-8 #### [facility] CLIA [id number] [address] [place] [address] [place] Creatinine [Mass/Vol] 0.73 mg/dL Normal 0.58-0.96 [facility] Comment on above: Order Comment: Speci men Type: BLOOD SPECIMEN Ordering Facility: [facility] Address: [address] [place] [address] Performed By: #### 2 4323-8 #### [facility] CLIA [id number] [address] [place] [address] [place] Creatinine and Glomerular filtration rate.predicted panel (S/P/Bld) 97 mL/min/1.73m??? Normal >=60 [facility] Comment on above: Order Comment: aDrrel parson Type: BLOOD SPECIMEN Ordering Facility: [facility] Address: [address] [place] [address] Result Comment: Zara mated Glomerular Filtration Rate (eGFR) is calculated using the 2020 CKD-EPI creatinine equation. This equation utilizes serum creatinine, sex, and age as parameters. The creatinine assay has traceable calibration to isotope dilution-mass spectrometry. Refer to KDIGO guidelines for clinical interpretation. In patients with unstable renal function, e.g. those with acute kidney injury, the eGFR may not accurately reflect actual GFR. Performed By: #### 2 4323-8 #### [facility] CLIA [id number] [address] [place] [address] [place] Glucose [Mass/Vol] 103 mg/dL High 74-99 [facility] Comment on above: Order Comment: Darrel parson Type: BLOOD SPECIMEN Ordering Facility: [facility] Address: [address] [place] [address] Result Comment: The [place] Diabetes Association (ADA) provides guidance for cutoff values for fasting glucose and random glucose. The ADA defines fasting as no caloric intake for at least 8 hours. Fasting plasma glucose results between 100 to 125 mg/dL indicate increased risk for diabetes (prediabetes). Fasting plasma glucose results greater than or equal to 126 mg/dL meet the criteria for diagnosis of diabetes. In the absence of unequivocal hyperglycemia, results should be confirmed by repeat testing. In a patient with classic symptoms of hyperglycemia or hyperglycemic crisis, random plasma glucose results greater than or equal to 200 mg/dL meet the criteria for diagnosis of diabetes. Reference: Standards of Medical Care in Diabetes 2016, [place] [employer] Association. Diabetes Care. 2016.39(Suppl 1). Performed By: #### 2 4323-8 #### [facility] CLIA [id number] [address] [place] [address] [place] Potassium [Moles/Vol] 4.7 mmol/L Normal 3.7-5.1 [facility] Comment on above: Order Comment: Darrel parson Type: BLOOD SPECIMEN Ordering Facility: [facility] Address: [address] [place] [id number] Performed By: #### 2 4323-8 #### [facility] CLIA [id number] [address] Protein [Mass/Vol] 6.8 g/dL Normal 6.3-8.0 [facility] Comment on above: Order Comment: Speci men Type: BLOOD SPECIMEN Ordering Facility: [facility] Address: [address] [place] [address] Performed By: #### 2 4323-8 #### [facility] CLIA [id number] [address] Sodium [Moles/Vol] 140 mmol/L Normal 136-144 [facility] Comment on above: Order Comment: Speci men Type: BLOOD SPECIMEN Ordering Facility: [facility] Address: [address] [place] [address] Performed By: #### 2 4323-8 #### [facility] CLIA [id number] [address] [place] Urea nitrogen [Mass/Vol] 7 mg/dL Normal 7-21 [facility] Comment on above: Order Comment: Speci men Type: BLOOD SPECIMEN Ordering Facility: [facility] Address: [address] [place] [address] Performed By: #### 2 4323-8 #### [facility] CLIA [id number] [address] NURSING PROGon 11-02-2024 NURSING PROG HNO ID: [id number] Author: GISSELLE RICCI RN Service: Radiology Author Type: Registered Nurse Type: Nursing Progress Note Filed: 11/02/2024 12:30 Note Text: PATIENT EDUCATION TOPIC: PROCEDURE / SURGERY: Procedure/Surgery: peripherally inserted central catheter placement PATIENT NAME: Jenna Valadez PATIENT LOCATION: [place] [id number] READINESS TO LEARN COGNITIVE ABILITY: Alert and oriented MOTIVATION TO LEARN: Eager FAMILY SUPPORT: None - Unavailable/disinter ested INSTRUCTION PROVIDED TO: Patient PATIENT LEARNS BEST BY: Written Instruction - Hand-outs FACTORS AFFECTING LEARNING: None PHYSICAL LIMITATIONS AFFECTING LEARNING: None LEARNING RESPONSE DIAGNOSIS: ADULT: abscess PATIENT/FAMILY RESPONSE: Verbalizes understanding of: POST-PROCEDURE INSTRUCTIONS-Correct actions to take to reduce post procedure complications PRE-PROCEDURE INSTRUCTIONS-Correct action to take to follow pre-procedure instructions METHOD OF INSTRUCTION: Individual instruction Written instruction/Handouts FOLLOW-UP PLAN: Complete - No need for follow-up INSTRUCTIONAL AIDS USED: NA SUPPLEMENTAL MATERIAL PROVIDED TO PATIENT: None REFERRAL (RECOMMENDATION): None Electronically Signed By: Gisselle Ricci RN [facility] ALLIED HEALTHon 11-01-2024 ALLIED [facility] HNO ID: [id number] Author: CRIS BLUM CT Service: Radiology Author Type: Technologist Type: Allied Health Filed: 11/01/2024 13:28 Note Text: Radiology Service Progress Note PATIENT NAME: Jenna Valadez DATE OF SERVICE: November 01, 2024 TIME: 1:28 PM PATIENT IDENTITY VERIFICATION COMPLETED USING TWO (2) IDENTIFIERS: Name and Date of confirmed by patient verbally and Name and Date of confirmed by identification band. FALL SCREENING: Has the patient had 2 falls in the last year or 1 fall with injury or currently using an Ambulatory Assistive Device (Walker, Cane, Wheelchair, Crutches, etc.)? Inpatient: Screened on floor PATIENT GENDER DATA: Assigned female at . status: : No status: NO. PATIENT RELEVANT IMPLANT DATA REVIEWED: Not Applicable PATIENT PRESENTS WITH AN IMPLANTABLE OR ATTACHED ENGAGEMENT LIAISON: No RADIOLOGY DEPARTMENT: CT; Exam(s) Completed: Abdomen/Pelvis PERIPHERAL IV DATA: Not applicable SIGNED BY: HENRY Valencia November 01, 2024 1:28 PM [facility] CBC panel Auto (Bld)on 11-01 Erythrocyte distribution width (RBC) [Ratio] 13.8 % Normal 11.5-15.0 [facility] Comment on above: Order Comment: Speci men Type: BLOOD SPECIMEN Ordering Facility: [facility] Address: [address] [place] [address] Performed By: #### 5 8410-2 #### [facility] CLIA [id number] [address] [place] [address] [place] Hematocrit (Bld) [Volume fraction] 33.5 % Low 36.0-46.0 [facility] Comment on above: Order Comment: Speci men Type: BLOOD SPECIMEN Ordering Facility: [facility] Address: [address] [place] [address] Performed By: #### 5 8410-2 #### [facility] CLIA [id number] [address] OF [facility] Hemoglobin (Bld) [Mass/Vol] 11.4 g/dL Low 11.5-15.5 [facility] Comment on above: Order Comment: Speci men Type: BLOOD SPECIMEN Ordering Facility: [facility] Address: [address] [place] [address] Performed By: #### 5 8410-2 #### [facility] CLIA [id number] [address] MCH (RBC) [Entitic mass] 28.9 pg Normal 26.0-34.0 [facility] Comment on above: Order Comment: Speci men Type: BLOOD SPECIMEN Ordering Facility: [facility] Address: [address] [place] [address] Performed By: #### 5 8410-2 #### [facility] CLIA [id number] [address] MCHC (RBC) [Mass/Vol] 34.0 g/dL Normal 30.5-36.0 [facility] Comment on above: Order Comment: Speci men Type: BLOOD SPECIMEN Ordering Facility: [facility] Address: [address] [place] [address] Performed By: #### 5 8410-2 #### [facility] CLIA [id number] [address] MCV (RBC) [Entitic vol] 84.8 fL Normal 80.0-100.0 [facility] Comment on above: Order Comment: Speci men Type: BLOOD SPECIMEN Ordering Facility: [facility] Address: [address] [place] [address] Performed By: #### 5 8410-2 #### [facility] CLIA [id number] [address] Nucleated RBC (Bld) [#/Vol] 10*3/uL Normal <0.01 [facility] Comment on above: Order Comment: Speci men Type: BLOOD SPECIMEN Ordering Facility: [facility] Address: [address] [place] [address] Performed By: #### 5 8410-2 #### [facility] CLIA [id number] [address] OF [facility] Platelet mean volume (Bld) [Entitic vol] 8.5 fL Low 9.0-12.7 [facility] Comment on above: Order Comment: Speci men Type: BLOOD SPECIMEN Ordering Facility: [facility] Address: [address] [place] [address] Performed By: #### 5 8410-2 #### [facility] CLIA [id number] [address] Platelets (Bld) [#/Vol] 495 10*3/uL High 150-400 [facility] Comment on above: Order Comment: Speci men Type: BLOOD SPECIMEN Ordering Facility: [facility] Address: [address] [place] [address] Performed By: #### 5 8410-2 #### [facility] CLIA [id number] [address] RBC (Bld) [#/Vol] 3.95 10*6/uL Normal 3.90-5.20 [facility] Comment on above: Order Comment: Speci men Type: BLOOD SPECIMEN Ordering Facility: [facility] Address: [address] [place] [address] Performed By: #### 5 8410-2 #### [facility] CLIA [id number] [address] WBC (Bld) [#/Vol] 7.67 10*3/uL Normal 3.70-11.00 [facility] Comment on above: Order Comment: Speci men Type: BLOOD SPECIMEN Ordering Facility: [facility] Address: [address] [place] [address] Performed By: #### 5 8410-2 #### [facility] CLIA [id number] [address] CONSULTon 11-01-2024 CONSULT HNO ID: [id number] Author: GUILLERMO MONIQUE MD Service: Infectious Disease Author Type: Physician Type: Consults Filed: 11/01/2024 22:58 Note Text: INFECTIOUS DISEASE INITIAL CONSULT SERVICE DATE: 11/01/2024 SERVICE TIME: 10:48 AM REASON FOR CONSULT: Abd abscess Subjective Patient is seen at the request of Dr Laboy. My final recommendations will be communicated back to the requesting physician by way of copy of this note or shared electronic medical record. HPI: Jenna Valadez who is a 54 year old female with a PMHx anxiety, depression, emphysema, and low HDL. Who presents to the ED for postoperative fever and abdominal pain and bloating. Recent admission was that she was admitted on 10/24/2024 for acute appendicitis had a laparoscopic appendectomy on 10/25/[address] Bosch. She was discharged home on Augmentin. PAST MEDICAL HISTORY Diagnosis Date Anxiety Depression Emphysema lung (HCC) 08/14/2016 Hypokalemia Hypomagnesemia Low HDL (under 40) PAST SURGICAL HISTORY Procedure Laterality Date COLONOSCOPY 08/19/2016 EGD 08/19/2016 Social History Tobacco Use Smoking status: Every Day Current packs/day: 1.00 Average packs/day: 1 pack/day for 25.0 years (25.0 ttl pk-yrs) Types: Cigarettes Smokeless tobacco: Never Vaping Use Vaping status: Never Used Substance Use Topics Alcohol use: No Drug use: Not Currently Types: Marijuana FAMILY HISTORY Problem Relation Age of Onset Breast Cancer Mother Heart Maternal Grandmother Diabetes Maternal Grandmother Arthritis Maternal Uncle Breast Cancer Sister Breast Cancer Paternal Aunt Immunization History Administered Date(s) Administered COVID-19 original vaccine, age 12+ yr, monovalent (PFIZER-BIONTECH - TERRY TOP) 03/13/2022 COVID-19 original vaccine, age 12+ yr, monovalent (PFIZER-BIONTECH - PURPLE TOP) 09/21/2020 10/12/2020 06/10/2021 influenza (IIV4) vaccine, age 6 mo - 64 yr, quadrivalent (AFLURIA, FLULAVAL, FLUZONE) 06/26/2016 11/15/2019 pneumococcal conjugate (PCV13) vaccine, 13 valent (PREVNAR 13) 11/15/2019 pneumococcal polysaccharide (PPV23) vaccine, 23 valent (PNEUMOVAX 23) 07/12/2012 tetanus diphtheria pertussis (Tdap) vaccine, age 7+ yr (ADACEL, BOOSTRIX) 04/15/2016 tuberculin skin test (TST-PPD), purified protein derivative, intradermal 04/23/2016 Current Facility-Administere d Medications Medication Dose Route Frequency oxyCODONE IR 5 mg tab(s) (ROXICODONE) 5 mg ORAL q 6 H PRN enteric contrast (radiology procedure) ORAL DIRECTED PRN acetaminophen 1,000 mg tab(s) (TYLENOL) 1,000 mg ORAL q 6 H NaCl 0.9% iv flush bag 20 mL INTRAVENOUS PRN cefTRIAXone iv piggyback 1 g in dextrose (iso-osmotic) 50 mL (ROCEPHIN) 1 g INTRAVENOUS q 24 H metroNIDAZOLE iv piggyback 500 mg in NaCl (iso-osmotic) 100 mL (FLAGYL) 500 mg INTRAVENOUS q 8 H ondansetron (PF) 4 mg injection (ZOFRAN) 4 mg INTRAVENOUS q 6 H PRN morphine 2 mg injection 2 mg INTRAVENOUS q 3 H PRN nicotine 21 mg/24 hr 1 Patch (NICODERM) 1 Patch TRANSDERMAL DAILY And nicotine -- REMOVE patch OTHER DAILY And nicotine - verify patch OTHER q 8 H nicotine polacrilex 2 mg gum (NICORETTE) 2 mg ORAL q 2 H PRN potassium chloride ER 40 mEq tab(s) (KLOR-CON) 40 mEq ORAL DAILY melatonin 6 mg tab(s) 6 mg ORAL DAILY (8 PM) ALLERGIES Allergen Reactions Prozac [Fluoxetine * Other: See Comments headaches Wellbutrin [Bupropi* Other: See Comments Increased anxiety and stomach ache REVIEW OF SYSTEMS: ROS checked in details x 10 systems and is negative except as noted in the HPI. All qs answered. Objective PHYSICAL EXAM: Temp (24hrs), Av.7 ?C (98.1 ?F), Min:36.5 ?C (97.7 ?F), Max:36.9 ?C (98.4 ?F) BP 109/60 Pulse 108 Temp 36.9 ?C (98.4 ?F) (Oral) Resp 16 Ht 156 cm (5' 1.42) Wt 59.3 kg (130 lb 11.7 oz) LMP (LMP Unknown) SpO2 100% BMI 24.37 kg/m? GENERAL APPEARANCE: Alert, NAD SKIN: No rashes NECK: Supple BACK: no CVAT. LUNGS: Clear HEART: Regular rate/rhythm, normal heart sounds, and no murmurs. ABDOMEN: Soft, mildly tender, no palpable masses, normal bowel sounds. EXTREMITIES: No edema or tenderness: NEURO: Awake, alert DATA: Diagnostic tests reviewed for today's visit: Labs: Recent Labs 11/01/24 0311 10/31/24 0843 10/31/24 0324 10/30/24 0604 WBC 7.67 -- 8.75 9.56 HB 11.4* -- 11.0* 10.1* HCT 33.5* -- 32.2* 28.7* PLT 495* -- 468* 377 INR -- 1.2 -- -- NA 140 -- 141 142 K 3.9 -- 3.8 3.6* CHLOR 103 -- 104 105 CO2 27 -- 26 25 BUN 8 -- 6* 4* CREAT 0.70 -- 0.65 0.62 UA: Lab Results Component Value Date SPGR 1.015 10/29/2024 SPGR 1.015 11/24/2018 UGLUC Negative 10/29/2024 UGLUC NEGATIVE 11/24/2018 UBILI Negative 10/29/2024 UBILI NEGATIVE 11/24/2018 UKET Negative 10/29/2024 UKET NEGATIVE 11/24/2018 UHB Negative 10/29/2024 UHB 3+ 12/09/2016 UPROT Negative 10/29/2024 UPROT NEGATIVE 11/24/2018 UROBIL 0.2 11/24/2018 UWBC 0-5 /HPF (more content not included)... Normal [facility] CT ABD/PEL WO IVCONon 2024 CT ABD/PEL WO IVCON * * *Final Report* * * DATE OF EXAM: Nov 01 2024 1:44PM [facility] [place] ABD/PEL WO IVCON / PROCEDURE REASON: Abdominal abscess/infection suspected * * * * Physician Interpretation * * * * EXAMINATION: CT ABDOMEN AND PELVIS WITHOUT IV CONTRAST CLINICAL HISTORY: Follow-up appendiceal abscesses TECHNIQUE: Non-IV contrast imaging of the abdomen and pelvis was performed using standard technique, scanning from just above the dome of the diaphragm to the symphysis pubis. Unenhanced imaging is limited for the evaluation of some intra-abdominal and pelvic pathology. MQ: CTAPWO_3 Contrast: IV: None Oral: 450 ml of 50ML Omnipaque [address] Radiation dose: Integrated Dose-length product (DLP) for this visit = 253 mGy*cm. CT Dose Reduction Employed: Automated exposure control(AEC) and iterative recon COMPARISON: 10/29/2024 CT abdomen pelvis with IV contrast. RESULT: Abdomen / Pelvis: Liver: Unremarkable. Biliary: No dilatation. Spleen: No splenomegaly. Pancreas: Unremarkable. Adrenals: No mass. Kidneys: No calculus, hydronephrosis or finding to suggest a cyst or mass in the unenhanced kidney. GI Tract: No bowel dilation. Lymph Nodes: Previously noted abscess collections are more difficult to see without IV contrast on today's study. The largest measures 3.6 x 2.6 cm, 2:86, and appears unchanged except that this collection contained a tiny gas bubble previously which is not seen today. There is a tiny gas bubble again noted within a slightly more caudal collection, 2:91, which is difficult to measure on today's study but is probably slightly smaller. No new collections are seen. No free air or other additional abnormal gas bubbles are noted. Mesentery/peritoneum : No ascites. Retroperitoneum: No mass. Vasculature: No aneurysm Pelvis: No mass or ascites. Bones/Soft Tissues: No acute abnormality. Lower thorax: Clear Localizer images: Nonspecific IMPRESSION: No significant interval change as described Process Improvement Manager: [facility] Transcribe Date/Time: Nov 01 2024 1:49P Dictated by : ADRIAN CERVANTES MD This examination was interpreted and the report reviewed and electronically signed by: ADRIAN CERVANTES MD on Nov 01 2024 2:54PM EST [id number] Normal [facility] Comprehensive metabolic 2000 panelon 11-01-2024 Albumin [Mass/Vol] 3.6 g/dL Low 3.9-4.9 [facility] Comment on above: Order Comment: Speci men Type: BLOOD SPECIMEN Ordering Facility: [facility] Address: [address] [place] [address] Performed By: #### 2 4323-8 #### [facility] CLIA [id number] [address] [place] [address] [place] ALP [Catalytic activity/Vol] 95 U/L Normal 34-123 [facility] Comment on above: Order Comment: Speci men Type: BLOOD SPECIMEN Ordering Facility: [facility] Address: [address] [place] [address] Performed By: #### 2 4323-8 #### [facility] CLIA [id number] [address] [place] [address] [place] ALT [Catalytic activity/Vol] 16 U/L Normal 7-38 [facility] Comment on above: Order Comment: Speci men Type: BLOOD SPECIMEN Ordering Facility: [facility] Address: [address] [place] [address] Performed By: #### 2 4323-8 #### [facility] CLIA [id number] [address] [place] [address] [place] Anion gap [Moles/Vol] 10 mmol/L Normal 8-15 [facility] Comment on above: Order Comment: Speci men Type: BLOOD SPECIMEN Ordering Facility: [facility] Address: [address] [place] [address] Performed By: #### 2 4323-8 #### [facility] CLIA [id number] [address] [place] [address] [place] AST [Catalytic activity/Vol] 23 U/L Normal 13-35 [facility] Comment on above: Order Comment: Speci men Type: BLOOD SPECIMEN Ordering Facility: [facility] Address: [address] [place] [address] Performed By: #### 2 4323-8 #### [facility] CLIA [id number] [address] [place] [address] [place] Bilirubin [Mass/Vol] 0.2 mg/dL Normal 0.2-1.3 [facility] Comment on above: Order Comment: Speci men Type: BLOOD SPECIMEN Ordering Facility: [facility] Address: [address] [place] [address] Performed By: #### 2 4323-8 #### [facility] CLIA [id number] [address] [place] [address] [place] Calcium [Mass/Vol] 9.5 mg/dL Normal 8.5-10.2 [facility] Comment on above: Order Comment: Speci men Type: BLOOD SPECIMEN Ordering Facility: [facility] Address: [address] [place] [address] Performed By: #### 2 4323-8 #### [facility] CLIA [id number] [address] [place] [address] [place] Chloride [Moles/Vol] 103 mmol/L Normal 98-107 [facility] Comment on above: Order Comment: Speci men Type: BLOOD SPECIMEN Ordering Facility: [facility] Address: [address] [place] [address] Performed By: #### 2 4323-8 #### [facility] CLIA [id number] [address] [place] [address] [place] CO2 [Moles/Vol] 27 mmol/L Normal 22-30 [facility] [facility] Comment on above: Order Comment: Regii men Type: BLOOD SPECIMEN Ordering Facility: [facility] Address: [address] [place] [address] Performed By: #### 2 4323-8 #### [facility] CLIA [id number] [address] [place] Creatinine [Mass/Vol] 0.70 mg/dL Normal 0.58-0.96 [facility] Comment on above: Order Comment: Regii men Type: BLOOD SPECIMEN Ordering Facility: [facility] Address: [address] [place] [address] Performed By: #### 2 4323-8 #### [facility] CLIA [id number] [address] Creatinine and Glomerular filtration rate.predicted panel (S/P/Bld) 102 mL/min/1.73m??? Normal >=60 [facility] Comment on above: Order Comment: Regii men Type: BLOOD SPECIMEN Ordering Facility: [facility] Address: [address] [place] [address] Result Comment: Zara mated Glomerular Filtration Rate (eGFR) is calculated using the 2020 CKD-EPI creatinine equation. This equation utilizes serum creatinine, sex, and age as parameters. The creatinine assay has traceable calibration to isotope dilution-mass spectrometry. Refer to KDIGO guidelines for clinical interpretation. In patients with unstable renal function, e.g. those with acute kidney injury, the eGFR may not accurately reflect actual GFR. Performed By: #### 2 4323-8 #### [facility] CLIA [id number] [address] [place] [address] [place] Glucose [Mass/Vol] 89 mg/dL Normal 74-99 [facility] Comment on above: Order Comment: Darrel parson Type: BLOOD SPECIMEN Ordering Facility: [facility] Address: [address] [place] [address] Result Comment: The [place] Diabetes Association (ADA) provides guidance for cutoff values for fasting glucose and random glucose. The ADA defines fasting as no caloric intake for at least 8 hours. Fasting plasma glucose results between 100 to 125 mg/dL indicate increased risk for diabetes (prediabetes). Fasting plasma glucose results greater than or equal to 126 mg/dL meet the criteria for diagnosis of diabetes. In the absence of unequivocal hyperglycemia, results should be confirmed by repeat testing. In a patient with classic symptoms of hyperglycemia or hyperglycemic crisis, random plasma glucose results greater than or equal to 200 mg/dL meet the criteria for diagnosis of diabetes. Reference: Standards of Medical Care in Diabetes 2016, [place] [employer] Association. Diabetes Care. 2016.39(Suppl 1). Performed By: #### 2 4323-8 #### [facility] CLIA [id number] [address] [place] [address] [place] Potassium [Moles/Vol] 3.9 mmol/L Normal 3.7-5.1 [facility] Comment on above: Order Comment: Darrel parson Type: BLOOD SPECIMEN Ordering Facility: [facility] Address: [address] [place] [address] Performed By: #### 2 4323-8 #### [facility] CLIA [id number] [address] [place] [address] [place] Protein [Mass/Vol] 6.7 g/dL Normal 6.3-8.0 [facility] Comment on above: Order Comment: Darrel parson Type: BLOOD SPECIMEN Ordering Facility: [facility] Address: [address] [place] [address] Performed By: #### 2 4323-8 #### [facility] CLIA [id number] [address] Sodium [Moles/Vol] 140 mmol/L Normal 136-144 [facility] Comment on above: Order Comment: Speci men Type: BLOOD SPECIMEN Ordering Facility: [facility] Address: [address] [place] [address] Performed By: #### 2 4323-8 #### [facility] CLIA [id number] [address] Urea nitrogen [Mass/Vol] 8 mg/dL Normal 7-21 [facility] Comment on above: Order Comment: Speci men Type: BLOOD SPECIMEN Ordering Facility: [facility] Address: [address] [place] [address] Performed By: #### 2 4323-8 #### [facility] CLIA [id number] [address] ECG COMPLETEon 11-01-2024 ECG COMPLETE Ventricular Rate : 88 BPM Atrial Rate : 88 BPM P-R Interval : 144 ms QRS Duration : 78 ms Q-T Interval : 360 ms QTC Calculation(Bazett) : 435 ms Calculated P [place] : 65 degrees Calculated R [place] : 27 degrees Calculated T [place] : 37 degrees NORMAL SINUS RHYTHM NORMAL ECG NO PREVIOUS ECGS AVAILABLE Confirmed by MD RUTHERFORD QARAB ([id number]) on 11/02/2024 10:35:55 AM NAME : JENNA VALADEZ PID : [id number] : 1970 Gender : Female Race : ORD : [id number] Procedure Date : Nov 01 2024 21:56:02 Edit Date : Nov 02 2024 10:35:59 Diagnosis: NORMAL SINUS RHYTHM NORMAL ECG NO PREVIOUS ECGS AVAILABLE Confirmed by MD RUTHERFORD QARAB ([id number]) on 11/02/2024 10:35:55 AM Test Reason : Check QT Location : 22 : 2E 0272 Overread By : MD RUTHERFORD QARAB Edited By : MD RUTHERFORD QARAB Referred By : MIGUE SUAZO Acquired by : Rock patel [facility] CBC panel Auto (Bld)on 10-31 Erythrocyte distribution width (RBC) [Ratio] 14.1 % Normal 11.5-15.0 [facility] Comment on above: Order Comment: Speci men Type: BLOOD SPECIMEN Ordering Facility: [facility] Address: [address] [place] [address] Performed By: #### 5 8410-2 #### [facility] CLIA [id number] [address] Hematocrit (Bld) [Volume fraction] 32.2 % Low 36.0-46.0 [facility] Comment on above: Order Comment: Speci men Type: BLOOD SPECIMEN Ordering Facility: [facility] Address: [address] [place] [address] Performed By: #### 5 8410-2 #### [facility] CLIA [id number] [address] Hemoglobin (Bld) [Mass/Vol] 11.0 g/dL Low 11.5-15.5 [facility] Comment on above: Order Comment: Speci men Type: BLOOD SPECIMEN Ordering Facility: [facility] Address: [address] [place] [address] Performed By: #### 5 8410-2 #### [facility] CLIA [id number] [address] MCH (RBC) [Entitic mass] 29.4 pg Normal 26.0-34.0 [facility] Comment on above: Order Comment: Speci men Type: BLOOD SPECIMEN Ordering Facility: [facility] Address: [address] [place] [address] Performed By: #### 5 8410-2 #### [facility] CLIA [id number] [address] MCHC (RBC) [Mass/Vol] 34.2 g/dL Normal 30.5-36.0 [facility] Comment on above: Order Comment: Speci men Type: BLOOD SPECIMEN Ordering Facility: [facility] Address: [address] [place] [address] Performed By: #### 5 8410-2 #### [facility] CLIA [id number] [address] [place] [address] [place] MCV (RBC) [Entitic vol] 86.1 fL Normal 80.0-100.0 [facility] Comment on above: Order Comment: Speci men Type: BLOOD SPECIMEN Ordering Facility: [facility] Address: [address] [place] [address] Performed By: #### 5 8410-2 #### [facility] CLIA [id number] [address] [place] [address] [place] Nucleated RBC (Bld) [#/Vol] 10*3/uL Normal <0.01 [facility] Comment on above: Order Comment: Speci men Type: BLOOD SPECIMEN Ordering Facility: [facility] Address: [address] [place] [address] Performed By: #### 5 8410-2 #### [facility] CLIA [id number] [address] [place] Platelet mean volume (Bld) [Entitic vol] 8.8 fL Low 9.0-12.7 [facility] Comment on above: Order Comment: Speci men Type: BLOOD SPECIMEN Ordering Facility: [facility] Address: [address] [place] [address] Performed By: #### 5 8410-2 #### [facility] CLIA [id number] [address] [place] Platelets (Bld) [#/Vol] 468 10*3/uL High 150-400 [facility] Comment on above: Order Comment: Speci men Type: BLOOD SPECIMEN Ordering Facility: [facility] Address: [address] [place] [address] Performed By: #### 5 8410-2 #### [facility] CLIA [id number] [address] [place] [address] [place] RBC (Bld) [#/Vol] 3.74 10*6/uL Low 3.90-5.20 [facility] Comment on above: Order Comment: Speci men Type: BLOOD SPECIMEN Ordering Facility: [facility] Address: [address] [place] [address] Performed By: #### 5 8410-2 #### [facility] CLIA [id number] [address] [place] [address] [facility] [place] WBC (Bld) [#/Vol] 8.75 10*3/uL Normal 3.70-11.00 [facility] Comment on above: Order Comment: Speci men Type: BLOOD SPECIMEN Ordering Facility: [facility] Address: [address] [place] [address] Performed By: #### 5 8410-2 #### [facility] CLIA [id number] [address] OF [facility] Comprehensive metabolic 2000 panelon 10-31-2024 Albumin [Mass/Vol] 3.3 g/dL Low 3.9-4.9 [facility] Comment on above: Order Comment: Speci men Type: BLOOD SPECIMEN Ordering Facility: [facility] Address: [address] [place] [address] Performed By: #### 2 4323-8 #### [facility] CLIA [id number] [address] [place] ALP [Catalytic activity/Vol] 93 U/L Normal 34-123 [facility] Comment on above: Order Comment: Speci men Type: BLOOD SPECIMEN Ordering Facility: [facility] Address: [address] [place] [address] Performed By: #### 2 4323-8 #### [facility] CLIA [id number] [address] ALT [Catalytic activity/Vol] 17 U/L Normal 7-38 [facility] Comment on above: Order Comment: Speci men Type: BLOOD SPECIMEN Ordering Facility: [facility] Address: [address] [place] [address] Performed By: #### 2 4323-8 #### [facility] CLIA [id number] [address] Anion gap [Moles/Vol] 11 mmol/L Normal 8-15 [facility] Comment on above: Order Comment: Speci men Type: BLOOD SPECIMEN Ordering Facility: [facility] Address: [address] [place] [address] Performed By: #### 2 4323-8 #### [facility] CLIA [id number] [address] [place] [address] [place] AST [Catalytic activity/Vol] 16 U/L Normal 13-35 [facility] Comment on above: Order Comment: Speci men Type: BLOOD SPECIMEN Ordering Facility: [facility] Address: [address] [place] [address] Performed By: #### 2 4323-8 #### [facility] CLIA [id number] [address] [place] [address] [place] Bilirubin [Mass/Vol] 0.2 mg/dL Normal 0.2-1.3 [facility] Comment on above: Order Comment: Speci men Type: BLOOD SPECIMEN Ordering Facility: [facility] Address: [address] [place] [address] Performed By: #### 2 4323-8 #### [facility] CLIA [id number] [address] [place] Calcium [Mass/Vol] 9.7 mg/dL Normal 8.5-10.2 [facility] Comment on above: Order Comment: Speci men Type: BLOOD SPECIMEN Ordering Facility: [facility] Address: [address] [place] [address] Performed By: #### 2 4323-8 #### [facility] CLIA [id number] [address] [place] [address] [place] Chloride [Moles/Vol] 104 mmol/L Normal 98-107 [facility] Comment on above: Order Comment: Speci men Type: BLOOD SPECIMEN Ordering Facility: [facility] Address: [address] [place] [address] Performed By: #### 2 4323-8 #### [facility] CLIA [id number] [address] [place] [address] [place] CO2 [Moles/Vol] 26 mmol/L Normal 22-30 [facility] Comment on above: Order Comment: Speci men Type: BLOOD SPECIMEN Ordering Facility: [facility] Address: [address] [place] [address] Performed By: #### 2 4323-8 #### [facility] CLIA [id number] [address] [place] [address] [place] Creatinine [Mass/Vol] 0.65 mg/dL Normal 0.58-0.96 [facility] Comment on above: Order Comment: Darrel parson Type: BLOOD SPECIMEN Ordering Facility: [facility] Address: [address] [place] [address] Performed By: #### 2 4323-8 #### [facility] CLIA [id number] [address] Creatinine and Glomerular filtration rate.predicted panel (S/P/Bld) 103 mL/min/1.73m??? Normal >=60 [facility] Comment on above: Order Comment: Darrel parson Type: BLOOD SPECIMEN Ordering Facility: [facility] Address: [address] [place] [address] Result Comment: Zara mated Glomerular Filtration Rate (eGFR) is calculated using the 2020 CKD-EPI creatinine equation. This equation utilizes serum creatinine, sex, and age as parameters. The creatinine assay has traceable calibration to isotope dilution-mass spectrometry. Refer to KDIGO guidelines for clinical interpretation. In patients with unstable renal function, e.g. those with acute kidney injury, the eGFR may not accurately reflect actual GFR. Performed By: #### 2 4323-8 #### [facility] CLIA [id number] [address] STATES OF [facility] Glucose [Mass/Vol] 93 mg/dL Normal 74-99 [facility] Comment on above: Order Comment: Darrel eb Type: BLOOD SPECIMEN Ordering Facility: [facility] Address: [address] [place] [address] Result Comment: The [place] Diabetes Association (ADA) provides guidance for cutoff values for fasting glucose and random glucose. The ADA defines fasting as no caloric intake for at least 8 hours. Fasting plasma glucose results between 100 to 125 mg/dL indicate increased risk for diabetes (prediabetes). Fasting plasma glucose results greater than or equal to 126 mg/dL meet the criteria for diagnosis of diabetes. In the absence of unequivocal hyperglycemia, results should be confirmed by repeat testing. In a patient with classic symptoms of hyperglycemia or hyperglycemic crisis, random plasma glucose results greater than or equal to 200 mg/dL meet the criteria for diagnosis of diabetes. Reference: Standards of Medical Care in Diabetes 2016, [place] [employer]. Diabetes Care. 2016.39(Suppl 1). Performed By: #### 2 4323-8 #### [facility] CLIA [id number] [address] Potassium [Moles/Vol] 3.8 mmol/L Normal 3.7-5.1 [facility] Comment on above: Order Comment: Speci men Type: BLOOD SPECIMEN Ordering Facility: [facility] Address: [address] [place] [address] Performed By: #### 2 4323-8 #### [facility] CLIA [id number] [address] Protein [Mass/Vol] 6.5 g/dL Normal 6.3-8.0 [facility] Comment on above: Order Comment: Speci men Type: BLOOD SPECIMEN Ordering Facility: [facility] Address: [address] [place] [address] Performed By: #### 2 4323-8 #### [facility] CLIA [id number] [address] Sodium [Moles/Vol] 141 mmol/L Normal 136-144 [facility] Comment on above: Order Comment: Regii men Type: BLOOD SPECIMEN Ordering Facility: [facility] Address: [address] [place] [address] Performed By: #### 2 4323-8 #### [facility] CLIA [id number] [address] Urea nitrogen [Mass/Vol] 6 mg/dL Low 7-21 [facility] Comment on above: Order Comment: Speci men Type: BLOOD SPECIMEN Ordering Facility: [facility] Address: [address] [place] [address] Performed By: #### 2 4323-8 #### [facility] CLIA [id number] [address] STATES OF [facility] HISTORY PHYSICALon HISTORY PHYSICAL HNO ID: [id number] Author: KANDY MAHONEY APRN.[employer]ING [employer]ESS OPERATOR Service: ? Author Type: Nurse Practitioner Type: H&P Filed: 10/31/2024 10:56 Note Text: SURGICAL SERVICES HANDP SERVICE DATE: 10/31/2024 SERVICE TIME: 08 PRIMARY CARE PHYSICIAN: Anmol Chen MD Subjective CHIEF COMPLAINT: abdominal abscess HISTORY OF PRESENT ILLNESS: Ms. Valadez is a 54 year old female with a PMHx anxiety, depression, emphysema, and low HDL. Who presents to the ED for postoperative fever and abdominal pain and bloating. Recent admission was that she was admitted on 10/24/2024 for acute appendicitis had a laparoscopic appendectomy on 10/25/[address] Bosch. She was discharged home on Augmentin. ED workup labs urinalysis and CT imaging were performed. She had a normal white blood cell count she had a low potassium and was started on IV potassium UA was unremarkable but CT abdomen and pelvis showed communicating right pelvic fluid collections likely abscesses. Today no fevers since Thursday, having some abdominal discomfort with bloating with some nausea. PAST MEDICAL HISTORY Diagnosis Date Anxiety Depression Emphysema lung (HCC) 08/14/2016 Hypokalemia Hypomagnesemia Low HDL (under 40) PAST SURGICAL HISTORY Procedure Laterality Date COLONOSCOPY 08/19/2016 EGD 08/19/2016 FAMILY HISTORY Problem Relation Age of Onset Breast Cancer Mother Heart Maternal Grandmother Diabetes Maternal Grandmother Arthritis Maternal Uncle Breast Cancer Sister Breast Cancer Paternal Aunt Social History Tobacco Use Smoking status: Every Day Current packs/day: 1.00 Average packs/day: 1 pack/day for 25.0 years (25.0 ttl pk-yrs) Types: Cigarettes Smokeless tobacco: Never Vaping Use Vaping status: Never Used Substance Use Topics Alcohol use: No Drug use: Not Currently Types: Marijuana acetaminophen (TYLENOL) 500 mg tablet, Take 2 tablets by mouth every 6 hours., Disp: , Rfl: , 10/29/2024 oxyCODONE IR (ROXICODONE) 5 mg immediate release tablet, Take 1 tablet by mouth every 6 hours as needed for up to 5 days., Disp: 15 tablet, Rfl: 0, 10/28/2024 Evening amoxicillin-clavulan ate potassium (AUGMENTIN) 500-125 mg per tablet, Take 1 tablet by mouth three times a day for 5 days., Disp: 15 tablet, Rfl: 0, 10/29/2024 Noon ondansetron (ZOFRAN) 4 mg tablet, Take 1 tablet by mouth every 8 hours as needed for nausea/vomiting for up to 14 days., Disp: 20 tablet, Rfl: 0, Taking As Needed albuterol HFA (PROVENTIL HFA, VENTOLIN HFA) 90 mcg/actuation inhaler, Inhale 2 Puffs as instructed every 4 hours as needed for wheezing/shortness of breath., Disp: 6.7 g, Rfl: 0 Current Facility-Administere d Medications Medication Dose Route Frequency oxyCODONE IR 5 mg tab(s) (ROXICODONE) 5 mg ORAL q 6 H PRN acetaminophen 1,000 mg tab(s) (TYLENOL) 1,000 mg ORAL q 6 H NaCl 0.9% iv flush bag 20 mL INTRAVENOUS PRN cefTRIAXone iv piggyback 1 g in dextrose (iso-osmotic) 50 mL (ROCEPHIN) 1 g INTRAVENOUS q 24 H metroNIDAZOLE iv piggyback 500 mg in NaCl (iso-osmotic) 100 mL (FLAGYL) 500 mg INTRAVENOUS q 8 H ondansetron (PF) 4 mg injection (ZOFRAN) 4 mg INTRAVENOUS q 6 H PRN morphine 2 mg injection 2 mg INTRAVENOUS q 3 H PRN nicotine 21 mg/24 hr 1 Patch (NICODERM) 1 Patch TRANSDERMAL DAILY And nicotine -- REMOVE patch OTHER DAILY And nicotine - verify patch OTHER q 8 H nicotine polacrilex 2 mg gum (NICORETTE) 2 mg ORAL q 2 H PRN potassium chloride ER 40 mEq tab(s) (KLOR-CON) 40 mEq ORAL DAILY melatonin 6 mg tab(s) 6 mg ORAL DAILY (8 PM) ALLERGIES Allergen Reactions Prozac [Fluoxetine * Other: See Comments headaches Wellbutrin [Bupropi* Other: See Comments Increased anxiety and stomach ache COMPLETE REVIEW OF SYSTEMS: PAIN ASSESSMENT: Negative for pain, history of chronic pain, or current treatment for a chronic pain condition. GENERAL: last known fever Thursday RESPIRATORY: Negative for cough, hemoptysis, wheezing, COPD, dyspnea or shortness of breath CARDIOVASCULAR: Negative for chest pain, leg swelling, hypertension, CHF or palpitations GI: No nausea, vomiting, or diarrhea : No history of dysuria, frequency or incontinence MUSCULOSKELETAL: Negative for joint pain or swelling, back pain or muscle pain SKIN: Negative for lesions, rash, and itching Objective PHYSICAL EXAM: BP 108/50 Pulse 92 Temp (Src) 99 (Oral) Resp 18 Ht 5' 1.417 (1.56m) Wt 130 lb 11.7 oz (59.3kg) SpO2 96% BMI 24.37 kg/(m2). O2 Therapy: Room Air Physical Exam Performed GENERAL: Alert, no distress, cooperative SKIN: Skin color, texture, turgor normal. No rashes or lesions. EYES: PERRLA, EOMI LUNGS: Lungs clear to auscultation, Good diaphragmatic excursion CARDIAC: Normal S1 and S2; no rubs, murmurs, or gallops ABDOMEN: Abdomen soft,diffuse ttp, BS normal, EXTREMITIES: Extremities normal, no deformities, edema, clubbing or skin discoloration. Good capillary refill., No ulcers WOUND: 3 lap s (more content not included)... Normal [facility] PT panel Coag (PPP)on 2024 INR Coag (PPP) [Relative time] 1.2 {INR} Normal 0.9-1.3 [facility] Comment on above: Order Comment: Speci men Type: BLOOD SPECIMEN Ordering Facility: [facility] Address: [address] [place] [address] Result Comment: Aislinn min K Antagonist (VKA) Therapeutic Range: INR 2 to 3 (Target INR of 2.5) Note: For patients treated with VKA drugs, such as warfarin, the [place] [employer] 2012 Guideline recommends a therapeutic INR range of 2 to 3 (target INR of 2.5). This recommendation includes high-risk patients with antiphospholipid syndrome with previous arterial or venous thromboembolism, current-generation mechanical or bioprosthetic aortic heart valve replacement. Note: Patients with mechanical aortic valve replacement and additional risk factors for thromboembolic events (atrial fibrillation, previous thromboembolism, LV dysfunction, hypercoagulable conditions) or an older generation mechanical AVR (i.e., ball in-Cage) or any mechanical MVR should have a INR therapeutic range of 2.5 to 3.5 (target INR of 3). Magdy GH, et al. Chest 2012, 141:7S-47S Godfrey RA et al. JAC 2017, 70: 252-289 Performed By: #### 2 4323-8 #### [facility] CLIA [id number] [address] [place] [address] OF [facility] PT Coag (PPP) [Time] 12.4 s Normal 9.7-13.0 [facility] Comment on above: Order Comment: Speci men Type: BLOOD SPECIMEN Ordering Facility: [facility] Address: [address] [place] [address] Performed By: #### 2 4323-8 #### [facility] CLIA [id number] [address] CBC panel Auto (Bld)on 10-30 Erythrocyte distribution width (RBC) [Ratio] 13.8 % Normal 11.5-15.0 [facility] Comment on above: Order Comment: Speci men Type: BLOOD SPECIMEN Ordering Facility: [facility] Address: [address] [place] [address] Performed By: #### 5 8410-2 #### [facility] CLIA [id number] [address] OF [facility] Hematocrit (Bld) [Volume fraction] 28.7 % Low 36.0-46.0 [facility] Comment on above: Order Comment: Speci men Type: BLOOD SPECIMEN Ordering Facility: [facility] Address: [address] [place] [address] Performed By: #### 5 8410-2 #### [facility] CLIA [id number] [address] Hemoglobin (Bld) [Mass/Vol] 10.1 g/dL Low 11.5-15.5 [facility] Comment on above: Order Comment: Speci men Type: BLOOD SPECIMEN Ordering Facility: [facility] Address: [address] [place] [address] Performed By: #### 5 8410-2 #### [facility] CLIA [id number] [address] MCH (RBC) [Entitic mass] 29.0 pg Normal 26.0-34.0 [facility] Comment on above: Order Comment: Speci men Type: BLOOD SPECIMEN Ordering Facility: [facility] Address: [address] [place] [address] Performed By: #### 5 8410-2 #### [facility] CLIA [id number] [address] MCHC (RBC) [Mass/Vol] 35.2 g/dL Normal 30.5-36.0 [facility] Comment on above: Order Comment: Speci men Type: BLOOD SPECIMEN Ordering Facility: [facility] Address: [address] [place] [address] Performed By: #### 5 8410-2 #### [facility] CLIA [id number] [address] MCV (RBC) [Entitic vol] 82.5 fL Normal 80.0-100.0 [facility] Comment on above: Order Comment: Speci men Type: BLOOD SPECIMEN Ordering Facility: [facility] Address: [address] [place] [address] Performed By: #### 5 8410-2 #### [facility] CLIA [id number] [address] Nucleated RBC (Bld) [#/Vol] 10*3/uL Normal <0.01 [facility] Comment on above: Order Comment: Speci men Type: BLOOD SPECIMEN Ordering Facility: [facility] Address: [address] [place] [address] Performed By: #### 5 8410-2 #### [facility] CLIA [id number] [address] Platelet mean volume (Bld) [Entitic vol] 9.0 fL Normal 9.0-12.7 [facility] Comment on above: Order Comment: Speci men Type: BLOOD SPECIMEN Ordering Facility: [facility] Address: [address] [place] [address] Performed By: #### 5 8410-2 #### [facility] CLIA [id number] [address] Platelets (Bld) [#/Vol] 377 10*3/uL Normal 150-400 [facility] Comment on above: Order Comment: Speci men Type: BLOOD SPECIMEN Ordering Facility: [facility] Address: [address] [place] [address] Performed By: #### 5 8410-2 #### [facility] CLIA [id number] [address] [place] RBC (Bld) [#/Vol] 3.48 10*6/uL Low 3.90-5.20 [facility] Comment on above: Order Comment: Speci men Type: BLOOD SPECIMEN Ordering Facility: [facility] Address: [address] [place] [address] Performed By: #### 5 8410-2 #### [facility] CLIA [id number] [address] OF [facility] WBC (Bld) [#/Vol] 9.56 10*3/uL Normal 3.70-11.00 [facility] Comment on above: Order Comment: Speci men Type: BLOOD SPECIMEN Ordering Facility: [facility] Address: [address] [place] [address] Performed By: #### 5 8410-2 #### [facility] CLIA [id number] [address] Comprehensive metabolic 2000 panelon 10-30-2024 Albumin [Mass/Vol] 3.2 g/dL Low 3.9-4.9 [facility] Comment on above: Order Comment: Speci men Type: BLOOD SPECIMEN Ordering Facility: [facility] Address: [address] [place] [address] Performed By: #### 2 4323-8 #### [facility] CLIA [id number] [address] ALP [Catalytic activity/Vol] 83 U/L Normal 34-123 [facility] Comment on above: Order Comment: Speci men Type: BLOOD SPECIMEN Ordering Facility: [facility] Address: [address] [place] [address] Performed By: #### 2 4323-8 #### [facility] CLIA [id number] [address] ALT [Catalytic activity/Vol] 18 U/L Normal 7-38 [facility] Comment on above: Order Comment: Speci men Type: BLOOD SPECIMEN Ordering Facility: [facility] Address: [address] [place] [address] Performed By: #### 2 4323-8 #### [facility] CLIA [id number] [address] [place] [address] [place] Anion gap [Moles/Vol] 12 mmol/L Normal 8-15 [facility] Comment on above: Order Comment: Speci men Type: BLOOD SPECIMEN Ordering Facility: [facility] Address: [address] [place] [address] Performed By: #### 2 4323-8 #### [facility] CLIA [id number] [address] [place] [address] [place] AST [Catalytic activity/Vol] 19 U/L Normal 13-35 [facility] Comment on above: Order Comment: Speci men Type: BLOOD SPECIMEN Ordering Facility: [facility] Address: [address] [place] [address] Performed By: #### 2 4323-8 #### [facility] CLIA [id number] [address] [place] Bilirubin [Mass/Vol] 0.2 mg/dL Normal 0.2-1.3 [facility] Comment on above: Order Comment: Speci men Type: BLOOD SPECIMEN Ordering Facility: [facility] Address: [address] [place] [address] Performed By: #### 2 4323-8 #### [facility] CLIA [id number] [address] STATES OF [facility] Calcium [Mass/Vol] 8.7 mg/dL Normal 8.5-10.2 [facility] Comment on above: Order Comment: Speci men Type: BLOOD SPECIMEN Ordering Facility: [facility] Address: [address] [place] [address] Performed By: #### 2 4323-8 #### [facility] CLIA [id number] [address] [place] Chloride [Moles/Vol] 105 mmol/L Normal 98-107 [facility] Comment on above: Order Comment: Speci men Type: BLOOD SPECIMEN Ordering Facility: [facility] Address: [address] [place] [address] Performed By: #### 2 4323-8 #### [facility] CLIA [id number] [address] [place] CO2 [Moles/Vol] 25 mmol/L Normal 22-30 [facility] Comment on above: Order Comment: Darrel parson Type: BLOOD SPECIMEN Ordering Facility: [facility] Address: [address] [place] [address] Performed By: #### 2 4323-8 #### [facility] CLIA [id number] [address] [place] Creatinine [Mass/Vol] 0.62 mg/dL Normal 0.58-0.96 [facility] Comment on above: Order Comment: Darrel parson Type: BLOOD SPECIMEN Ordering Facility: [facility] Address: [address] [place] [address] Performed By: #### 2 4323-8 #### [facility] CLIA [id number] [address] Creatinine and Glomerular filtration rate.predicted panel (S/P/Bld) 105 mL/min/1.73m??? Normal >=60 [facility] Comment on above: Order Comment: Darrel parson Type: BLOOD SPECIMEN Ordering Facility: [facility] Address: [address] [place] [address] Result Comment: Zara mated Glomerular Filtration Rate (eGFR) is calculated using the 2020 CKD-EPI creatinine equation. This equation utilizes serum creatinine, sex, and age as parameters. The creatinine assay has traceable calibration to isotope dilution-mass spectrometry. Refer to KDIGO guidelines for clinical interpretation. In patients with unstable renal function, e.g. those with acute kidney injury, the eGFR may not accurately reflect actual GFR. Performed By: #### 2 4323-8 #### [facility] CLIA [id number] [address] [place] Glucose [Mass/Vol] 96 mg/dL Normal 74-99 [facility] Comment on above: Order Comment: Darrel parson Type: BLOOD SPECIMEN Ordering Facility: [facility] Address: [address] [place] [address] Result Comment: The [place] Diabetes Association (ADA) provides guidance for cutoff values for fasting glucose and random glucose. The ADA defines fasting as no caloric intake for at least 8 hours. Fasting plasma glucose results between 100 to 125 mg/dL indicate increased risk for diabetes (prediabetes). Fasting plasma glucose results greater than or equal to 126 mg/dL meet the criteria for diagnosis of diabetes. In the absence of unequivocal hyperglycemia, results should be confirmed by repeat testing. In a patient with classic symptoms of hyperglycemia or hyperglycemic crisis, random plasma glucose results greater than or equal to 200 mg/dL meet the criteria for diagnosis of diabetes. Reference: Standards of Medical Care in Diabetes 2016, [place] [employer]. Diabetes Care. 2016.39(Suppl 1). Performed By: #### 2 4323-8 #### [facility] CLIA [id number] [address] [place] [address] [place] Potassium [Moles/Vol] 3.6 mmol/L Low 3.7-5.1 [facility] Comment on above: Order Comment: Darrel parson Type: BLOOD SPECIMEN Ordering Facility: [facility] Address: [address] [place] [address] Performed By: #### 2 4323-8 #### [facility] CLIA [id number] [address] [place] [address] [place] Protein [Mass/Vol] 5.7 g/dL Low 6.3-8.0 [facility] Comment on above: Order Comment: Darrel parson Type: BLOOD SPECIMEN Ordering Facility: [facility] Address: [address] [place] [address] Performed By: #### 2 4323-8 #### [facility] CLIA [id number] [address] [place] [address] [place] Sodium [Moles/Vol] 142 mmol/L Normal 136-144 [facility] Comment on above: Order Comment: Darrel parson Type: BLOOD SPECIMEN Ordering Facility: [facility] Address: [address] [place] [address] Performed By: #### 2 4323-8 #### [facility] CLIA [id number] [address] [place] [address] [place] Urea nitrogen [Mass/Vol] 4 mg/dL Low 7-21 [facility] Comment on above: Order Comment: Darrel parson Type: BLOOD SPECIMEN Ordering Facility: [facility] Address: [address] [place] [address] Performed By: #### 2 4323-8 #### [facility] CLIA [id number] [address] [place] [address] [facility] ED PROV NOTEon 10-30-2024 ED PROV NOTE HNO ID: [id number] Author: MIGUE SUAZO MD Service: Emergency Medicine Author Type: Physician Type: ED Provider Notes Filed: 10/31/2024 00:17 Note Text: ED Provider Note Patient Name: Jenna Valadez : 1970 SERVICE DATE: 10/29/24 History Patient presents with: Abdominal Pain Fever This a 54-year-old female states that she recently had an appendectomy at [facility] discharge this past . She states today she had a fever and feels like her lower abdomen is bloated and slightly more painful. She has been having bowel movements and passing flatus. No dysuria urgency or frequency other than that she states that when she voids she has some abdominal pressure. She believes she was discharged on antibiotics. She states that the appendix surgery was done laparoscopically but that her appendix was gangrenous. She has been able to eat and drink. PAST MEDICAL HISTORY Diagnosis Date Anxiety Depression Emphysema lung (HCC) 08/14/2016 Hypokalemia Hypomagnesemia Low HDL (under 40) PAST SURGICAL HISTORY Procedure Laterality Date COLONOSCOPY 08/19/2016 EGD 08/19/2016 FAMILY HISTORY Problem Relation Age of Onset Breast Cancer Mother Heart Maternal Grandmother Diabetes Maternal Grandmother Arthritis Maternal Uncle Breast Cancer Sister Breast Cancer Paternal Aunt Social History Tobacco Use Smoking status: Every Day Current packs/day: 1.00 Average packs/day: 1 pack/day for 25.0 years (25.0 ttl pk-yrs) Types: Cigarettes Smokeless tobacco: Never Vaping Use Vaping status: Never Used Substance and Sexual Activity Alcohol use: No Drug use: Not Currently Types: Marijuana Sexual activity: Yes ALLERGIES Allergen Reactions Prozac [Fluoxetine * Other: See Comments headaches Wellbutrin [Bupropi* Other: See Comments Increased anxiety and stomach ache Review of Systems Physical Exam Vitals [10/29/24 1807] BP Pulse Temp Temp src Resp SpO2 Weight Height 128/83 (!) 118 36.5 ?C (97.7 ?F) Temporal 16 100 % 56.7 kg (125 lb) -- Physical Exam Vitals and nursing note reviewed. Constitutional: Appearance: She is well-developed. She is not toxic-appearing or diaphoretic. HENT: Head: Normocephalic and atraumatic. Right Ear: Tympanic membrane, ear canal and external ear normal. Left Ear: Tympanic membrane, ear canal and external ear normal. Mouth/Throat: Mouth: Mucous membranes are moist. Mucous membranes are not dry. Pharynx: Uvula midline. No pharyngeal swelling, oropharyngeal exudate or posterior oropharyngeal erythema. Eyes: General: No scleral icterus. Extraocular Movements: Extraocular movements intact. Conjunctiva/sclera: Conjunctivae normal. Right eye: Right conjunctiva is not injected. Left eye: Left conjunctiva is not injected. Pupils: Pupils are equal, round, and reactive to light. Neck: Vascular: No JVD. Cardiovascular: Rate and Rhythm: Normal rate and regular rhythm. Pulses: Normal pulses. Heart sounds: Normal heart sounds. No murmur heard. No friction rub. No gallop. Pulmonary: Effort: Pulmonary effort is normal. No respiratory distress. Breath sounds: Normal breath sounds. No stridor. No wheezing, rhonchi or rales. Abdominal: General: Bowel sounds are normal. There is no distension. Palpations: Abdomen is soft. Tenderness: There is abdominal tenderness in the right lower quadrant and suprapubic area. There is no right CVA tenderness, left CVA tenderness, guarding or rebound. Hernia: No hernia is present. Comments: Incisions are clean dry and intact Musculoskeletal: General: No swelling or tenderness. Cervical back: Neck supple. Lymphadenopathy: Cervical: No cervical adenopathy. Skin: General: Skin is warm and dry. Capillary Refill: Capillary refill takes less than 2 seconds. Findings: No erythema or rash. Neurological: Mental Status: She is alert and oriented to person, place, and time. Cranial Nerves: No cranial nerve deficit. Sensory: No sensory deficit. Motor: No weakness. Gait: Gait normal. Psychiatric: Mood and Affect: Mood is anxious. Diagnostic Testing ED Labs Ordered and Reviewed URINALYSIS (WITH MICROSCOPIC) WITH CULTURE IF INDICATED - Abnormal; Notable for the following components: Result Value Ref Range Bacteria Rare (*) None Seen /HPF All other components within normal limits COMPREHENSIVE METABOLIC PANEL - Abnormal; Notable for the following components: Albumin 3.5 (*) 3.9 - 4.9 g/dL Glucose 111 (*) 74 - 99 mg/dL BUN 4 (*) 7 - 21 mg/dL Potassium 2.9 (*) 3.7 - 5.1 mmol/L All other components within normal limits COMPLETE BLOOD COUNT AND DIFFERENTIAL - Abnormal; Notable for the following components: Hemoglobin 11.4 (*) 11.5 - 15.5 g/dL Hematocrit 33.5 (*) 36.0 - 46.0 % Platelet Count 414 (*) 150 - 400 k/uL Abs Neut 8.49 (*) 1.45 - 7.50 k/uL All other components within normal limits SEPSIS LACTATE - Normal P (more content not included)... Normal [facility] HISTORY PHYSICALon HISTORY PHYSICAL HNO ID: [id number] Author: GISSELLE LABOY MD Service: General Surgery Author Type: Physician Type: H&P Filed: 10/30/2024 09:06 Note Text: UPDATED HISTORY AND PHYSICAL EXAMINATION PATIENT NAME: Jenna Valadez DATE of SERVICE: 10/30/2024 TIME of SERVICE: 9:05 AM PHYSICAL EXAM MUST BE COMPLETED ON ADMISSION The History and Physical (completed in the past 30 days) has been reviewed and the patient has been examined. The contents accurately reflect the patient's condition with the following additions or revisions since the HANDP was completed. Examination indicates the following changes were noted: - new pelvic abscess s/p lap appy. Will have radiology assess for drain tomorrow. Replace K. Regular diet. This HANDP can be found in the EMR dated 10/24/2024 . SIGNATURE: Gisselle Laboy MD DATE: October 30, 2024 TIME: 9:05 AM Normal [facility] Magnesium SerPl-mCncon 10-30 Magnesium [Mass/Vol] 2.0 mg/dL Normal 1.7-2.3 [facility] Comment on above: Order Comment: Speci men Type: BLOOD SPECIMEN Ordering Facility: [facility] Address: [address] [place] [address] Performed By: #### 2 4323-8 #### [facility] CLIA [id number] [address] [place] [address] [place] CBC W Auto Differential pane l (Bld)on 10-29-2024 Basophils (Bld) [#/Vol] 0.04 10*3/uL Normal <0.11 [facility] Comment on above: Order Comment: Speci men Type: BLOOD SPECIMEN Ordering Facility: [facility] Address: [address] [place] [address] Performed By: #### 5 7021-8 #### [facility] CLIA [id number] [address] [place] [address] [place] Basophils/100 WBC (Bld) 0.4 % Normal [facility] Comment on above: Order Comment: Speci men Type: BLOOD SPECIMEN Ordering Facility: [facility] Address: [address] [place] [address] Performed By: #### 5 7021-8 #### [facility] CLIA [id number] [address] [place], [place] [id number] [place] Differential cell count method Nom (Bld) Auto Normal [facility] Comment on above: Order Comment: Speci men Type: BLOOD SPECIMEN Ordering Facility: [facility] Address: [address] [place] [address] Performed By: #### 5 7021-8 #### [facility] CLIA [id number] [address] [place] [address] [place] Eosinophils (Bld) [#/Vol] 0.07 10*3/uL Normal <0.46 [facility] Comment on above: Order Comment: Speci men Type: BLOOD SPECIMEN Ordering Facility: [facility] Address: [address] [place] [address] Performed By: #### 5 7021-8 #### [facility] CLIA [id number] [address] [place] [address] [facility] [place] Eosinophils/100 WBC (Bld) 0.6 % Normal [facility] Comment on above: Order Comment: Speci men Type: BLOOD SPECIMEN Ordering Facility: [facility] Address: [address] [place], [place] [address] Performed By: #### 5 7021-8 #### [facility] CLIA [id number] [address] [place] [address] [place] Erythrocyte distribution width (RBC) [Ratio] 13.4 % Normal 11.5-15.0 [facility] Comment on above: Order Comment: Speci men Type: BLOOD SPECIMEN Ordering Facility: [facility] Address: [address] [place] [address] Performed By: #### 5 7021-8 #### [facility] CLIA [id number] [address] [place] [address] [place] Hematocrit (Bld) [Volume fraction] 33.5 % Low 36.0-46.0 [facility] Comment on above: Order Comment: Speci men Type: BLOOD SPECIMEN Ordering Facility: [facility] Address: [address] [place] [address] Performed By: #### 5 7021-8 #### [facility] CLIA [id number] [address] [place] Hemoglobin (Bld) [Mass/Vol] 11.4 g/dL Low 11.5-15.5 [facility] Comment on above: Order Comment: Speci men Type: BLOOD SPECIMEN Ordering Facility: [facility] Address: [address] [place] [address] Performed By: #### 5 7021-8 #### [facility] CLIA [id number] [address] [place] [address] [place] Immature granulocytes (Bld) [#/Vol] 0.09 10*3/uL Normal <0.10 [facility] Comment on above: Order Comment: Speci men Type: BLOOD SPECIMEN Ordering Facility: [facility] Address: [address] [place] [address] Performed By: #### 5 7021-8 #### [facility] CLIA [id number] [address] [place] [id number] [facility] [place] Immature granulocytes/100 WBC (Bld) 0.8 % Normal [facility] Comment on above: Order Comment: Speci men Type: BLOOD SPECIMEN Ordering Facility: [facility] Address: [address] [place] [address] Performed By: #### 5 7021-8 #### [facility] CLIA [id number] [address] [place] [address] [place] Lymphocytes (Bld) [#/Vol] 1.40 10*3/uL Normal 1.00-4.00 [facility] Comment on above: Order Comment: Speci men Type: BLOOD SPECIMEN Ordering Facility: [facility] Address: [address] [place] [address] Performed By: #### 5 7021-8 #### [facility] CLIA [id number] [address] [place] [address] [place] Lymphocytes/100 WBC (Bld) 12.9 % Normal [facility] Comment on above: Order Comment: Speci men Type: BLOOD SPECIMEN Ordering Facility: [facility] Address: [address] [place] [address] Performed By: #### 5 7021-8 #### [facility] CLIA [id number] [address] [place] [address] [place] MCH (RBC) [Entitic mass] 28.9 pg Normal 26.0-34.0 [facility] Comment on above: Order Comment: Speci men Type: BLOOD SPECIMEN Ordering Facility: [facility] Address: [address] [place] [address] Performed By: #### 5 7021-8 #### [facility] CLIA [id number] [address] [place] [address] [place] MCHC (RBC) [Mass/Vol] 34.0 g/dL Normal 30.5-36.0 [facility] Comment on above: Order Comment: Speci men Type: BLOOD SPECIMEN Ordering Facility: [facility] Address: [address] [place] [address] Performed By: #### 5 7021-8 #### [facility] CLIA [id number] [address] [place] [address] [place] MCV (RBC) [Entitic vol] 85.0 fL Normal 80.0-100.0 [facility] Comment on above: Order Comment: Speci men Type: BLOOD SPECIMEN Ordering Facility: [facility] Address: [address] [place] [address] Performed By: #### 5 7021-8 #### [facility] CLIA [id number] [address] [place] [address] [place] Monocytes (Bld) [#/Vol] 0.77 10*3/uL Normal <0.87 [facility] Comment on above: Order Comment: Speci men Type: BLOOD SPECIMEN Ordering Facility: [facility] Address: [address] [place] [address] Performed By: #### 5 7021-8 #### [facility] CLIA [id number] [address] [place] [address] [place] Monocytes/100 WBC (Bld) 7.1 % Normal [facility] Comment on above: Order Comment: Speci men Type: BLOOD SPECIMEN Ordering Facility: [facility] Address: [address] [place] [address] Performed By: #### 5 7021-8 #### [facility] CLIA [id number] [address] [place] [address] [place] Neutrophils (Bld) [#/Vol] 8.49 10*3/uL High 1.45-7.50 [facility] Comment on above: Order Comment: Speci men Type: BLOOD SPECIMEN Ordering Facility: [facility] Address: [address] [place] [address] Performed By: #### 5 7021-8 #### [facility] CLIA [id number] [address] [place] [address] [place] Neutrophils/100 WBC (Bld) 78.2 % Normal [facility] Comment on above: Order Comment: Speci men Type: BLOOD SPECIMEN Ordering Facility: [facility] Address: [address] [place] [address] Performed By: #### 5 7021-8 #### [facility] CLIA [id number] [address] [place] [address] [place] Nucleated RBC (Bld) [#/Vol] Normal [facility] Comment on above: Order Comment: Speci men Type: BLOOD SPECIMEN Ordering Facility: [facility] Address: [address] [place] [address] Performed By: #### 5 7021-8 #### [facility] CLIA [id number] [address] [place] [address] [place] Nucleated RBC/100 WBC (Bld) [Ratio] Normal [facility] Comment on above: Order Comment: Speci men Type: BLOOD SPECIMEN Ordering Facility: [facility] Address: [address] [place] [address] Performed By: #### 5 7021-8 #### [facility] CLIA [id number] [address] [place] [address] [place] Platelet mean volume (Bld) [Entitic vol] 9.1 fL Normal 9.0-12.7 [facility] Comment on above: Order Comment: Speci men Type: BLOOD SPECIMEN Ordering Facility: [facility] Address: [address] [place] [address] Performed By: #### 5 7021-8 #### [facility] CLIA [id number] [address] [place] [address] [place] Platelets (Bld) [#/Vol] 414 10*3/uL High 150-400 [facility] Comment on above: Order Comment: Speci men Type: BLOOD SPECIMEN Ordering Facility: [facility] Address: [facility] [facility] [place] [address] Performed By: #### 5 7021-8 #### [facility] CLIA [id number] [address] [place] [address] [place] RBC (Bld) [#/Vol] 3.94 10*6/uL Normal 3.90-5.20 [facility] Comment on above: Order Comment: Speci men Type: BLOOD SPECIMEN Ordering Facility: [facility] Address: [address] [place] [address] Performed By: #### 5 7021-8 #### [facility] CLIA [id number] [address] [place] [address] [place] WBC (Bld) [#/Vol] 10.86 10*3/uL Normal 3.70-11.00 [facility] Comment on above: Order Comment: Speci men Type: BLOOD SPECIMEN Ordering Facility: [facility] Address: [address] [place], [place] [address] Performed By: #### 5 7021-8 #### [facility] CLIA [id number] [address] [place] [address] [facility] [place] CT ABD/PEL W IVCONon 025 CT ABD/PEL W IVCON * * *Final Report* * * DATE OF EXAM: Oct 29 2024 7:45PM [facility] 0530 - CT ABD/PEL W IVCON / PROCEDURE REASON: Abdominal abscess/infection suspected * * * * Physician Interpretation * * * * EXAMINATION: CT ABDOMEN AND PELVIS WITH IV CONTRAST CT ABD/PEL W IVCON CLINICAL HISTORY: Abdominal abscess/infection suspected, post appendectomy; Pt reports she was recently discharge from the hospital for appendectomy (discharged ) - today spiked a fever and feels bloated states she called her doctor who advised her to come to ED... Abdominal abscess/infection suspected TECHNIQUE: CT of the abdomen and pelvis was performed using standard technique, scanning from just above the dome of the diaphragm to the symphysis pubis. MQ: CTAP_3 Contrast: Contrast Media: IV administration of 100 ml of Omnipaque 350 CT Radiation dose: Integrated Dose-length product (DLP) for this visit = 652.67 mGy*cm. CT Dose Reduction Employed: Automated exposure correction (AEC). COMPARISON: 10/24/2024 CT abdomen/pelvis RESULT: Liver: No mass. Biliary: No bile duct dilatation. Spleen: No mass. No splenomegaly. Pancreas: No mass or duct dilation. Adrenals: No mass. Kidneys: No enhancing mass, calculus or hydronephrosis. GI tract: No small or large bowel dilatation. Bowel wall enhancement in the pelvis secondary to surrounding inflammatory changes. Interval appendectomy. Lymph nodes: No abdominal or pelvic lymphadenopathy. Mesentery/Peritoneum : No ascites or mass. Retroperitoneum: No mass. Vasculature: - Abdominal aorta and iliac arteries: No aneurysm. - Celiac and SMA: Patent without stenosis. - Portal venous system (SMV, splenic vein, portal vein and branches): Patent. - Hepatic veins: Patent. Pelvis: Interval postoperative changes of appendectomy. There are 3 communicating postoperative fluid collections in the right pelvis. The largest most superior collection measures 4.5 cm AP x2.8 cm transverse x 2.6 cm SI (axial series 2 image 88; sagittal series 602 image 56). A second more anterior/inferior collection measures 2.2 cm AP x2.0 cm transverse x 2.5 cm SI (axial series 2 image 94; sagittal series 602 image 49). Inferior most collection measures 2.9 cm AP x1.7 cm transverse x 1.6 cm SI (axial series 2 image 99; sagittal series 602 image 48). Generalized inflammatory fat stranding. Diffuse bladder wall thickening likely due to surrounding inflammatory changes. Bones/Soft Tissues: No significant finding. _ Lower thorax: Small right pleural effusion and dependent right lower lobe atelectasis. Bead Flipper (topogram) images: No additional findings. IMPRESSION: Interval postoperative changes of appendectomy. Communicating right pelvic fluid collections probably representing abscesses. Process Improvement Manager: [facility]ITAL[facility]ay Transcribe Date/Time: Oct 29 2024 9:06P Dictated by : JESSENIA BLACKMON MD This examination was interpreted and the report reviewed and electronically signed by: JESSENIA BLACKMON MD on Oct 29 2024 9:15PM EST [id number] CN Normal [facility] Comprehensive metabolic 2000 panelon 10-29-2024 Albumin [Mass/Vol] 3.5 g/dL Low 3.9-4.9 [facility] Comment on above: Order Comment: Speci men Type: BLOOD SPECIMEN Ordering Facility: [facility] Address: [address] [place] [address] Performed By: #### 2 4323-8 #### [facility] CLIA [id number] [address] [place] [address] [place] ALP [Catalytic activity/Vol] 106 U/L Normal 34-123 [facility] Comment on above: Order Comment: Speci men Type: BLOOD SPECIMEN Ordering Facility: [facility] Address: [address] [place] [address] Performed By: #### 2 4323-8 #### [facility] CLIA [id number] [address] [place] [address] [place] ALT With P-5'-P [Catalytic activity/Vol] 22 U/L Normal 7-38 [facility] Comment on above: Order Comment: Speci men Type: BLOOD SPECIMEN Ordering Facility: [facility] Address: [address] [place] [address] Performed By: #### 2 4323-8 #### [facility] CLIA [id number] [address] [place] [address] [place] Anion gap [Moles/Vol] 13 mmol/L Normal 8-15 [facility] Comment on above: Order Comment: Speci men Type: BLOOD SPECIMEN Ordering Facility: [facility] Address: [address] [place] [address] Performed By: #### 2 4323-8 #### [facility] CLIA [id number] [address] [place], [place] [address] [place] [address] [place] AST With P-5'-P [Catalytic activity/Vol] 27 U/L Normal 13-35 [facility] Comment on above: Order Comment: Speci men Type: BLOOD SPECIMEN Ordering Facility: [facility] Address: [address] [place] [address] Performed By: #### 2 4323-8 #### [facility] CLIA [id number] [address] [place] [address] [place] Bilirubin [Mass/Vol] 0.2 mg/dL Normal 0.2-1.3 [facility] Comment on above: Order Comment: Speci men Type: BLOOD SPECIMEN Ordering Facility: [facility] Address: [address] [place] [address] Performed By: #### 2 4323-8 #### [facility] CLIA [id number] [address] [place] [address] [place] Calcium [Mass/Vol] 9.5 mg/dL Normal 8.5-10.2 [facility] Comment on above: Order Comment: Speci men Type: BLOOD SPECIMEN Ordering Facility: [facility] Address: [address] [place] [address] Performed By: #### 2 4323-8 #### [facility] CLIA [id number] [address] [place] [address] [place] Chloride [Moles/Vol] 99 mmol/L Normal 98-107 [facility] Comment on above: Order Comment: Speci men Type: BLOOD SPECIMEN Ordering Facility: [facility] Address: [address] [place] [address] Performed By: #### 2 4323-8 #### [facility] CLIA [id number] [address] [place] [address] [place] CO2 [Moles/Vol] 29 mmol/L Normal 22-30 [facility] Comment on above: Order Comment: Speci men Type: BLOOD SPECIMEN Ordering Facility: [facility] Address: [address] [place] [address] Performed By: #### 2 4323-8 #### [facility] CLIA [id number] [address] [place] [address] [place] Creatinine [Mass/Vol] 0.68 mg/dL Normal 0.58-0.96 [facility] Comment on above: Order Comment: Speci men Type: BLOOD SPECIMEN Ordering Facility: [facility] Address: [address] [place] [address] Performed By: #### 2 4323-8 #### [facility] CLIA [id number] [address] [place] [address] [place] Creatinine and Glomerular filtration rate.predicted panel (S/P/Bld) 102 mL/min/1.73m??? Normal >=60 [facility] Comment on above: Order Comment: Darrel parson Type: BLOOD SPECIMEN Ordering Facility: [facility] Address: [address] [place] [address] Result Comment: Zara mated Glomerular Filtration Rate (eGFR) is calculated using the 2020 CKD-EPI creatinine equation. This equation utilizes serum creatinine, sex, and age as parameters. The creatinine assay has traceable calibration to isotope dilution-mass spectrometry. Refer to KDIGO guidelines for clinical interpretation. In patients with unstable renal function, e.g. those with acute kidney injury, the eGFR may not accurately reflect actual GFR. Performed By: #### 2 4323-8 #### [facility] CLIA [id number] [address] [place] [address] [place] Glucose [Mass/Vol] 111 mg/dL High 74-99 [facility] Comment on above: Order Comment: Darrel parson Type: BLOOD SPECIMEN Ordering Facility: [facility] Address: [address] [place] [address] Result Comment: The [place] Diabetes [employer] (ADA) provides guidance for cutoff values for fasting glucose and random glucose. The ADA defines fasting as no caloric intake for at least 8 hours. Fasting plasma glucose results between 100 to 125 mg/dL indicate increased risk for diabetes (prediabetes). Fasting plasma glucose results greater than or equal to 126 mg/dL meet the criteria for diagnosis of diabetes. In the absence of unequivocal hyperglycemia, results should be confirmed by repeat testing. In a patient with classic symptoms of hyperglycemia or hyperglycemic crisis, random plasma glucose results greater than or equal to 200 mg/dL meet the criteria for diagnosis of diabetes. Reference: Standards of Medical Care in Diabetes 2016, [place] [employer]. Diabetes Care. 2016.39(Suppl 1). Performed By: #### 2 4323-8 #### [facility] CLIA [id number] [address] [place] [address] [place] Potassium [Moles/Vol] 2.9 mmol/L Low 3.7-5.1 [facility] Comment on above: Order Comment: Darrel parson Type: BLOOD SPECIMEN Ordering Facility: [facility] Address: [address] [place] [address] Performed By: #### 2 4323-8 #### [facility] CLIA [id number] [address] [place] [address] [place] Protein [Mass/Vol] 6.6 g/dL Normal 6.3-8.0 [facility] Comment on above: Order Comment: Darrel parson Type: BLOOD SPECIMEN Ordering Facility: [facility] Address: [address] [place] [address] Performed By: #### 2 4323-8 #### [facility] CLIA [id number] [address] [place] [address] [place] [facility] Sodium [Moles/Vol] 141 mmol/L Normal 136-144 [facility] Comment on above: Order Comment: Darrel parson Type: BLOOD SPECIMEN Ordering Facility: [facility] Address: [address] [place] [address] Performed By: #### 2 4323-8 #### [facility] CLIA [id number] [address] [place] [address] [facility] Urea nitrogen [Mass/Vol] 4 mg/dL Low 7-21 [facility] Comment on above: Order Comment: Darrel parson Type: BLOOD SPECIMEN Ordering Facility: [facility] Address: [address] [place] [address] Performed By: #### 2 4323-8 #### [facility] CLIA [id number] [address] [place] [address] [facility] ED NOTEon 10-29-2024 ED NOTE HNO ID: [id number] Author: NICKO MCBRIDE, EL Service: Emergency Medicine Author Type: Registered Nurse Type: ED Notes Filed: 10/29/2024 18:15 Note Text: Pt reports she was recently discharge from the hospital for appendectomy (discharged ) - today spiked a fever and feels bloated states she called her doctor who advised her to come to ED. Pt is alert and oriented. Normal [facility] SEPSIS LACTATEon 10-29-2024 Lactate [Moles/Vol] 1.0 mmol/L Normal <=2.0 [facility] Comment on above: Order Comment: Speci men Type: STOOL SPECIMEN Ordering Facility: [facility] Address: [address] [place] [address] Performed By: #### Nayeli SILVERIO, 01723-7 #### [facility] CLIA [id number] [address] Urinalysis complete panel (U )on 10-29-2024 Bacteria LM.HPF (Urine sed) [#/Area] Rare Abnormal None Seen [facility] Comment on above: Order Comment: Speci men Type: URINE SPECIMEN Ordering Facility: [facility] Address: [address] [place] [address] Performed By: #### 2 4356-8 #### [facility] CLIA [id number] [address] [place] [address] [facility] Bilirubin Ql (U) Negative Normal Negative [facility] Comment on above: Order Comment: Speci men Type: URINE SPECIMEN Ordering Facility: [facility] Address: [address] [place] [address] Performed By: #### 2 4356-8 #### [facility] CLIA [id number] [address] [place] Clarity (Unsp spec) Clear Normal Clear [facility] Comment on above: Order Comment: Speci men Type: URINE SPECIMEN Ordering Facility: [facility] Address: [address] [place] [address] Performed By: #### 2 4356-8 #### [facility] CLIA [id number] [address] [place] Color (U) Yellow Normal Yellow [facility] Comment on above: Order Comment: Speci men Type: URINE SPECIMEN Ordering Facility: [facility] Address: [address] [place] [address] Performed By: #### 2 4356-8 #### [facility] CLIA [id number] [address] [place] [address] [place] Epithelial cells LM.HPF (Urine sed) [#/Area] Few Normal [facility] Comment on above: Order Comment: Speci men Type: URINE SPECIMEN Ordering Facility: [facility] Address: [address] [place] [address] Performed By: #### 2 4356-8 #### [facility] CLIA [id number] [address] [place] [address] [facility] Glucose Test strip (U) [Mass/Vol] Negative Normal Negative [facility] Comment on above: Order Comment: Speci men Type: URINE SPECIMEN Ordering Facility: [facility] Address: [address] [place] [address] Performed By: #### 2 4356-8 #### [facility] CLIA [id number] [address] [place] [address] [facility] Hemoglobin Ql (U) Negative Normal Negative [facility] Comment on above: Order Comment: Speci men Type: URINE SPECIMEN Ordering Facility: [facility] Address: [address] [place] [address] Performed By: #### 2 4356-8 #### [facility] CLIA [id number] [address] [place] [address] [place] Ketones Ql (U) Negative Normal Negative [facility] Comment on above: Order Comment: Speci men Type: URINE SPECIMEN Ordering Facility: [facility] Address: [address] [place] [address] Performed By: #### 2 4356-8 #### [facility] CLIA [id number] [address] [place] [address] [facility] Leukocyte esterase Test strip Ql (U) Negative Normal Negative [facility] Comment on above: Order Comment: Speci men Type: URINE SPECIMEN Ordering Facility: [facility] Address: [address] [place] [address] Performed By: #### 2 4356-8 #### [facility] CLIA [id number] [address] [place] [address] [place] Nitrite Ql (U) Negative Normal Negative [facility] Comment on above: Order Comment: Speci men Type: URINE SPECIMEN Ordering Facility: [facility] Address: [address] [place] [address] Performed By: #### 2 4356-8 #### [facility] CLIA [id number] [address] [place] [address] [place] pH (U) 7.0 [pH] Normal 5.0-8.0 [facility] Comment on above: Order Comment: Speci men Type: URINE SPECIMEN Ordering Facility: [facility] Address: [address] [place] [address] Performed By: #### 2 4356-8 #### [facility] CLIA [id number] [address] [place] [id number] [place] Protein (U) [Mass/Vol] Negative Normal Negative [facility] Comment on above: Order Comment: Speci men Type: URINE SPECIMEN Ordering Facility: [facility] Address: [address] [place] [address] Performed By: #### 2 4356-8 #### [facility] CLIA [id number] [address] [place] [id number] [place] RBC LM.HPF (Urine sed) [#/Area] 0-3 /HPF Normal 0-3 /HPF [facility] Comment on above: Order Comment: Speci men Type: URINE SPECIMEN Ordering Facility: [facility] Address: [address] [place] [address] Performed By: #### 2 4356-8 #### [facility] CLIA [id number] [address] [place] [address] [place] Specific gravity (U) [Rel density] 1.015 Normal 1.005-1.030 [facility] Comment on above: Order Comment: Speci men Type: URINE SPECIMEN Ordering Facility: [facility] Address: [address] [place] [address] Performed By: #### 2 4356-8 #### [facility] CLIA [id number] [address] [place] [address] [facility] Urobilinogen Ql (U) 0.2 EU/dL Normal 0.2-1.0 EU/dL [facility] Comment on above: Order Comment: Speci men Type: URINE SPECIMEN Ordering Facility: [facility] Address: [address] [place] [address] Performed By: #### 2 4356-8 #### [facility] CLIA [id number] [address] [place] [address] [place] WBC LM.HPF (Urine sed) [#/Area] 0-5 /HPF Normal 0-5 /HPF [facility] Comment on above: Order Comment: Speci men Type: URINE SPECIMEN Ordering Facility: [facility] Address: [address] [place] [address] Performed By: #### 2 4356-8 #### [facility] CLIA [id number] [address] [place] [address] [place] Basic metabolic 2000 panelon 10-27-2024 Anion gap [Moles/Vol] 8 mmol/L Normal 8-15 [facility] Comment on above: Order Comment: Speci men Type: BLOOD SPECIMEN Ordering Facility: [facility] Address: [address] [place] [address] Performed By: #### 2 4321-2 #### [facility] CLIA [id number] [address] [place] [address] [place] Calcium [Mass/Vol] 8.9 mg/dL Normal 8.5-10.2 [facility] Comment on above: Order Comment: Speci men Type: BLOOD SPECIMEN Ordering Facility: [facility] Address: [address] [place] [address] Performed By: #### 2 4321-2 #### [facility] CLIA [id number] [address] [place] [address] [place] Chloride [Moles/Vol] 105 mmol/L Normal 98-107 [facility] Comment on above: Order Comment: Speci men Type: BLOOD SPECIMEN Ordering Facility: [facility] Address: [address] [place] [address] Performed By: #### 2 4321-2 #### [facility] CLIA [id number] [address] [place] CO2 [Moles/Vol] 28 mmol/L Normal 22-30 [facility] Comment on above: Order Comment: Darrel parson Type: BLOOD SPECIMEN Ordering Facility: [facility] Address: [address] [place] [address] Performed By: #### 2 4321-2 #### [facility] CLIA [id number] [address] [place] Creatinine [Mass/Vol] 0.84 mg/dL Normal 0.58-0.96 [facility] Comment on above: Order Comment: Regii men Type: BLOOD SPECIMEN Ordering Facility: [facility] Address: [address] [place] [address] Performed By: #### 2 4321-2 #### [facility] CLIA [id number] [address] Creatinine and Glomerular filtration rate.predicted panel (S/P/Bld) 82 mL/min/1.73m??? Normal >=60 [facility] Comment on above: Order Comment: Regii men Type: BLOOD SPECIMEN Ordering Facility: [facility] Address: [address] [place] [address] Result Comment: Zara mated Glomerular Filtration Rate (eGFR) is calculated using the 2020 CKD-EPI creatinine equation. This equation utilizes serum creatinine, sex, and age as parameters. The creatinine assay has traceable calibration to isotope dilution-mass spectrometry. Refer to KDIGO guidelines for clinical interpretation. In patients with unstable renal function, e.g. those with acute kidney injury, the eGFR may not accurately reflect actual GFR. Performed By: #### 2 4321-2 #### [facility] CLIA [id number] [address] Glucose [Mass/Vol] 86 mg/dL Normal 74-99 [facility] Comment on above: Order Comment: Darrel men Type: BLOOD SPECIMEN Ordering Facility: [facility] Address: [address] [place] [address] Result Comment: The [place] Diabetes Association (ADA) provides guidance for cutoff values for fasting glucose and random glucose. The ADA defines fasting as no caloric intake for at least 8 hours. Fasting plasma glucose results between 100 to 125 mg/dL indicate increased risk for diabetes (prediabetes). Fasting plasma glucose results greater than or equal to 126 mg/dL meet the criteria for diagnosis of diabetes. In the absence of unequivocal hyperglycemia, results should be confirmed by repeat testing. In a patient with classic symptoms of hyperglycemia or hyperglycemic crisis, random plasma glucose results greater than or equal to 200 mg/dL meet the criteria for diagnosis of diabetes. Reference: Standards of Medical Care in Diabetes 2016, [place] [employer]. Diabetes Care. 2016.39(Suppl 1). Performed By: #### 2 4321-2 #### [facility] CLIA [id number] [address] [place] [address] [place] Potassium [Moles/Vol] 3.7 mmol/L Normal 3.7-5.1 [facility] Comment on above: Order Comment: Regii men Type: BLOOD SPECIMEN Ordering Facility: [facility] Address: [address] [place] [address] Performed By: #### 2 4321-2 #### [facility] CLIA [id number] [address] STATES OF [facility] Sodium [Moles/Vol] 141 mmol/L Normal 136-144 [facility] Comment on above: Order Comment: Speci men Type: BLOOD SPECIMEN Ordering Facility: [facility] Address: [address] [place] [address] Performed By: #### 2 4321-2 #### [facility] CLIA [id number] [address] [place] Urea nitrogen [Mass/Vol] 10 mg/dL Normal 7-21 [facility] Comment on above: Order Comment: Speci men Type: BLOOD SPECIMEN Ordering Facility: [facility] Address: [address] [place] [address] Performed By: #### 2 4321-2 #### [facility] CLIA [id number] [address] [place] CBC panel Auto (Bld)on 10-27 Erythrocyte distribution width (RBC) [Ratio] 13.9 % Normal 11.5-15.0 [facility] Comment on above: Order Comment: Speci men Type: BLOOD SPECIMEN Ordering Facility: [facility] Address: [address] [place] [address] Performed By: #### 2 4323-8 #### [facility] CLIA [id number] [address] Hematocrit (Bld) [Volume fraction] 26.8 % Low 36.0-46.0 [facility] Comment on above: Order Comment: Speci men Type: BLOOD SPECIMEN Ordering Facility: [facility] Address: [address] [place] [address] Performed By: #### 2 4323-8 #### [facility] CLIA [id number] [address] Hemoglobin (Bld) [Mass/Vol] 9.2 g/dL Low 11.5-15.5 [facility] Comment on above: Order Comment: Speci men Type: BLOOD SPECIMEN Ordering Facility: [facility] Address: [address] [place] [address] Performed By: #### 2 4323-8 #### [facility] CLIA [id number] [address] MCH (RBC) [Entitic mass] 29.6 pg Normal 26.0-34.0 [facility] Comment on above: Order Comment: Speci men Type: BLOOD SPECIMEN Ordering Facility: [facility] Address: [address] [place] [address] Performed By: #### 2 4323-8 #### [facility] CLIA [id number] [address] OF [facility] MCHC (RBC) [Mass/Vol] 34.3 g/dL Normal 30.5-36.0 [facility] Comment on above: Order Comment: Speci men Type: BLOOD SPECIMEN Ordering Facility: [facility] Address: [address] [place] [address] Performed By: #### 2 4323-8 #### [facility] CLIA [id number] [address] MCV (RBC) [Entitic vol] 86.2 fL Normal 80.0-100.0 [facility] Comment on above: Order Comment: Speci men Type: BLOOD SPECIMEN Ordering Facility: [facility] Address: [address] [place] [address] Performed By: #### 2 4323-8 #### [facility] CLIA [id number] [address] [place] [address] [place] Nucleated RBC (Bld) [#/Vol] 10*3/uL Normal <0.01 [facility] Comment on above: Order Comment: Speci men Type: BLOOD SPECIMEN Ordering Facility: [facility] Address: [address] [place] [address] Performed By: #### 2 4323-8 #### [facility] CLIA [id number] [address] [place] [address] [place] Platelet mean volume (Bld) [Entitic vol] 9.9 fL Normal 9.0-12.7 [facility] Comment on above: Order Comment: Speci men Type: BLOOD SPECIMEN Ordering Facility: [facility] Address: [address] [place] [address] Performed By: #### 2 4323-8 #### [facility] CLIA [id number] [address] [place] [address] [place] Platelets (Bld) [#/Vol] 254 10*3/uL Normal 150-400 [facility] Comment on above: Order Comment: Speci men Type: BLOOD SPECIMEN Ordering Facility: [facility] Address: [address] [place] [address] Performed By: #### 2 4323-8 #### [facility] CLIA [id number] [address] [place] [address] [place] RBC (Bld) [#/Vol] 3.11 10*6/uL Low 3.90-5.20 [facility] Comment on above: Order Comment: Speci men Type: BLOOD SPECIMEN Ordering Facility: [facility] Address: [address] [place] [address] Performed By: #### 2 4323-8 #### [facility] CLIA [id number] [address] [place] [address] [place] WBC (Bld) [#/Vol] 9.97 10*3/uL Normal 3.70-11.00 [facility] Comment on above: Order Comment: Speci men Type: BLOOD SPECIMEN Ordering Facility: [facility] Address: [address] [place] [address] Performed By: #### 2 4323-8 #### [facility] CLIA [id number] [address] [place] [address] [facility] CNDSon 10-27-2024 CNDS HNO ID: [id number] Author: KUSHAL BOSCH MD Service: General Surgery Author Type: Nurse Practitioner Type: Discharge Summary Filed: 10/28/2024 06:34 Note Text: Attestation signed by Kushal Bosch MD at 10/28/2024 6:34 AM .att DISCHARGE SUMMARY PATIENT NAME: Jenna Valadez Code Status: Not on file Highest Readmission Risk Score: 12 The 30 day readmissions risk score is derived from an internally validated risk model which evaluates patient level characteristics, utilization history, medication orders and lab results up until the day of discharge. Patients with a score of 39 or above are considered highest risk for readmission. Specific patient level drivers will be listed at the bottom of the summary. Admission Information Admission Information ADMIT DATE: 10/24/2024 DISCHARGE DATE: 10/27/2024 MY DOCTORS AND MEDICAL TEAM: My Main Hospital Doctor: Kushal Bosch MD Primary Care Provider: Anmol Chen MD My Medical Team Members: Treatment Team: Attending Provider: Kushal Bosch MD MY CONDITION AT DISCHARGE: Stable REASON I WAS IN THE HOSPITAL: acute appendicitis SUMMARY OF WHAT HAPPENED WHILE I WAS IN THE HOSPITAL: You came into the emergency department with abdominal pain. CT scan revealed acute appendicitis. You were taken to the operating room for a laparoscopic appendectomy with Dr. Bosch. General anesthesia was used for surgery. Surgery went as planned. You were recovered and transferred to the nursing floor for continued observation and pain control. During this time your blood pressure become low and Hgb lowered post-op, which caused you to stay an additional night in the hospital for monitoring. You were given fluids to increase your blood pressure and monitored your hgb which stabilized. The next morning you were tolerating your diet, pain was controlled and you were urinating without difficulty. Follow up will be in 2 weeks. OTHER PROBLEMS/DIAGNOSIS: Principal Problem: Acute appendicitis Active Problems: S/P laparoscopic appendectomy Resolved Problems: * No resolved hospital problems. * OPERATIONS PERFORMED WHILE IN THE HOSPITAL: laparoscopic appendectomy IMPORTANT TEST/PROCEDURES: No procedures performed TEST RESULTS NOT AVAILABLE AT THIS TIME: Pathology results Discharge Disposition Discharge Disposition: Home With Self Care Activity When You Leave the Hospital Lifting is restricted to: No lifting >20 lbs until post op appointment May shower May shower; no baths, hot tub or pool May use stairs No driving for: While on narcotic pain medication No prolonged bedrest, longer than 8 hours in a 24 hour period No walking restrictions Resume pre-hospital activity No lifting >20lbs until post op Diet Instructions Drink 6 to 8 glasses of fluids per day Resume your pre-hospital diet For Pain When You Leave the Hospital Apply a covered cold pack to the area No alcohol or driving while on pain medication Use acetaminophen (Tylenol) as recommended on the bottle Use ibuprofen (Motrin, Advil) as recommended on the bottle Use the dispensed medication (see prescription) Tylenol (acetaminophen) up to 650mg (2 over the counter 325mg) every 6 hours Motrin (ibuprofen) up to 800mg (4 over the counter 200mg) every 6 hours between tylenol Roxicodone 5mg every 6 hours as needed for pain. You should use an olqj-wsh-mlgvisk stool softener (Docusate sodium) and/or a fiber supplement (Metamucil, Fiber Con) every day while taking prescribed pain medication Wound/Surgical Site Care Leave open to air Some bleeding from the wound/surgical site can be expected. If excessive, see a doctor at once Steri strips can get wet. Let them fall off or remove in: 2 weeks Wash your hands frequently, especially before touching your incision, after using restroom and before eating Call Your Doctor If There is an unusual odor from the wound area There is severe pain at the operative site You have difficulty urinating or pain when urinating You have lightheadedness, fainting, or confusion You have pain and swelling in your legs, especially if it is only on one side and not the other You have persistent nausea/vomiting over 24 hours You have redness, swelling, pus or drainage from the wound Your temperature is greater than 101F Additional Provider to Provider Information: Treatment Team: Attending Provider: Kushal Bosch MD Transitions of Care Critical Issues: SPECIALIST FOLLOW-UP: 2 weeks General Surgery LABS AND PROCEDURES PENDING AT DISCHARGE: Pathology Results (appendix) FOLLOW-UP APPOINTMENTS ALREADY SCHEDULED WITH A [facility] PROVIDER: No future appointments. ALLERGIES Allergen Reactions Prozac [Fluoxetine * Othe (more content not included)... Normal [facility] Basic metabolic 2000 panelon 10-26-2024 Anion gap [Moles/Vol] 8 mmol/L Normal 8-15 [facility] Comment on above: Order Comment: Speci men Type: BLOOD SPECIMEN Ordering Facility: [facility] Address: [address] [place] [address] Performed By: #### 2 4323-8 #### [facility] CLIA [id number] [address] [place] [address] [place] Calcium [Mass/Vol] 9.0 mg/dL Normal 8.5-10.2 [facility] Comment on above: Order Comment: Speci men Type: BLOOD SPECIMEN Ordering Facility: [facility] Address: [address] [place] [id number] Performed By: #### 2 4323-8 #### [facility] CLIA [id number] [address] [place] [address] [place] Chloride [Moles/Vol] 102 mmol/L Normal 98-107 [facility] Comment on above: Order Comment: Speci men Type: BLOOD SPECIMEN Ordering Facility: [facility] Address: [address] [place] [address] Performed By: #### 2 4323-8 #### [facility] CLIA [id number] [address] [place] [address] [place] CO2 [Moles/Vol] 25 mmol/L Normal 22-30 [facility] Comment on above: Order Comment: Darrel parson Type: BLOOD SPECIMEN Ordering Facility: [facility] Address: [address] [place] [address] Performed By: #### 2 4323-8 #### [facility] CLIA [id number] [address] [place] Creatinine [Mass/Vol] 0.73 mg/dL Normal 0.58-0.96 [facility] Comment on above: Order Comment: Darrel parson Type: BLOOD SPECIMEN Ordering Facility: [facility] Address: [address] [place] [address] Performed By: #### 2 4323-8 #### [facility] CLIA [id number] [address] Creatinine and Glomerular filtration rate.predicted panel (S/P/Bld) 97 mL/min/1.73m??? Normal >=60 [facility] Comment on above: Order Comment: Darrel parson Type: BLOOD SPECIMEN Ordering Facility: [facility] Address: [address] [place] [address] Result Comment: Zara mated Glomerular Filtration Rate (eGFR) is calculated using the 2020 CKD-EPI creatinine equation. This equation utilizes serum creatinine, sex, and age as parameters. The creatinine assay has traceable calibration to isotope dilution-mass spectrometry. Refer to KDIGO guidelines for clinical interpretation. In patients with unstable renal function, e.g. those with acute kidney injury, the eGFR may not accurately reflect actual GFR. Performed By: #### 2 4323-8 #### [facility] CLIA [id number] [address] [place] [address] [place] Glucose [Mass/Vol] 119 mg/dL High 74-99 [facility] Comment on above: Order Comment: Darrel parson Type: BLOOD SPECIMEN Ordering Facility: [facility] Address: [address] [place] [address] Result Comment: The [place] Diabetes Association (ADA) provides guidance for cutoff values for fasting glucose and random glucose. The ADA defines fasting as no caloric intake for at least 8 hours. Fasting plasma glucose results between 100 to 125 mg/dL indicate increased risk for diabetes (prediabetes). Fasting plasma glucose results greater than or equal to 126 mg/dL meet the criteria for diagnosis of diabetes. In the absence of unequivocal hyperglycemia, results should be confirmed by repeat testing. In a patient with classic symptoms of hyperglycemia or hyperglycemic crisis, random plasma glucose results greater than or equal to 200 mg/dL meet the criteria for diagnosis of diabetes. Reference: Standards of Medical Care in Diabetes 2016, [place] [employer] Association. Diabetes Care. 2016.39(Suppl 1). Performed By: #### 2 4323-8 #### [facility] CLIA [id number] [address] [place] [address] [place] Potassium [Moles/Vol] Normal [facility] Comment on above: Order Comment: Darrel parson Type: BLOOD SPECIMEN Ordering Facility: [facility] Address: [address] [place] [address] Result Comment: Unab le to assay due to interference from hemolysis. Suggest reorder as clinically indicated. Performed By: #### 2 4323-8 #### [facility] CLIA [id number] [address] [place] Sodium [Moles/Vol] 135 mmol/L Low 136-144 [facility] Comment on above: Order Comment: Darrel parson Type: BLOOD SPECIMEN Ordering Facility: [facility] Address: [address] [place] [address] Performed By: #### 2 4323-8 #### [facility] CLIA [id number] [address] [place] Urea nitrogen [Mass/Vol] 9 mg/dL Normal 7-21 [facility] Comment on above: Order Comment: Darrel parson Type: BLOOD SPECIMEN Ordering Facility: [facility] Address: [address] [place] [address] Performed By: #### 2 4323-8 #### [facility] CLIA [id number] [address] [place] CBC panel Auto (Bld)on 10-26 Erythrocyte distribution width (RBC) [Ratio] 13.8 % Normal 11.5-15.0 [facility] Comment on above: Order Comment: Speci men Type: BLOOD SPECIMEN Ordering Facility: [facility] Address: [address] [place] [address] Performed By: #### 2 4323-8 #### [facility] CLIA [id number] [address] OF [facility] Hematocrit (Bld) [Volume fraction] 26.8 % Low 36.0-46.0 [facility] Comment on above: Order Comment: Speci men Type: BLOOD SPECIMEN Ordering Facility: [facility] Address: [address] [place] [address] Performed By: #### 2 4323-8 #### [facility] CLIA [id number] [address] Hemoglobin (Bld) [Mass/Vol] 9.2 g/dL Low 11.5-15.5 [facility] Comment on above: Order Comment: Speci men Type: BLOOD SPECIMEN Ordering Facility: [facility] Address: [address] [place] [address] Performed By: #### 2 4323-8 #### [facility] CLIA [id number] [address] MCH (RBC) [Entitic mass] 29.5 pg Normal 26.0-34.0 [facility] Comment on above: Order Comment: Speci men Type: BLOOD SPECIMEN Ordering Facility: [facility] Address: [address] [place] [address] Performed By: #### 2 4323-8 #### [facility] CLIA [id number] [address] [place] MCHC (RBC) [Mass/Vol] 34.3 g/dL Normal 30.5-36.0 [facility] Comment on above: Order Comment: Speci men Type: BLOOD SPECIMEN Ordering Facility: [facility] Address: [address] [place] [address] Performed By: #### 2 4323-8 #### [facility] CLIA [id number] [address] [place] MCV (RBC) [Entitic vol] 85.9 fL Normal 80.0-100.0 [facility] Comment on above: Order Comment: Speci men Type: BLOOD SPECIMEN Ordering Facility: [facility] Address: [address] [place] [address] Performed By: #### 2 4323-8 #### [facility] CLIA [id number] [address] [place] Nucleated RBC (Bld) [#/Vol] 10*3/uL Normal <0.01 [facility] Comment on above: Order Comment: Speci men Type: BLOOD SPECIMEN Ordering Facility: [facility] Address: [address] [place] [address] Performed By: #### 2 4323-8 #### [facility] CLIA [id number] [address] [place] Platelet mean volume (Bld) [Entitic vol] 9.5 fL Normal 9.0-12.7 [facility] Comment on above: Order Comment: Speci men Type: BLOOD SPECIMEN Ordering Facility: [facility] Address: [address] [place] [address] Performed By: #### 2 4323-8 #### [facility] CLIA [id number] [address] [place] Platelets (Bld) [#/Vol] 207 10*3/uL Normal 150-400 [facility] Comment on above: Order Comment: Speci men Type: BLOOD SPECIMEN Ordering Facility: [facility] Address: [address] [place] [address] Performed By: #### 2 4323-8 #### [facility] CLIA [id number] [address] [place] [address] [place] RBC (Bld) [#/Vol] 3.12 10*6/uL Low 3.90-5.20 [facility] Comment on above: Order Comment: Speci men Type: BLOOD SPECIMEN Ordering Facility: [facility] Address: [address] [place] [address] Performed By: #### 2 4323-8 #### [facility] CLIA [id number] [address] [place] [address] [facility] [place] WBC (Bld) [#/Vol] 11.47 10*3/uL High 3.70-11.00 [facility] Comment on above: Order Comment: Speci men Type: BLOOD SPECIMEN Ordering Facility: [facility] Address: [facility] [place] [address] Performed By: #### 2 4323-8 #### [facility] CLIA [id number] [address] [place] [address] [facility] [place] CONSULT PROGon 10-26-2024 CONSULT PROG HNO ID: [id number] Author: KANDY MAHONEY APRN.CURING PRESS OPERATOR Service: ? Author Type: Nurse Practitioner Type: Consult Progress Note Filed: 10/26/2024 13:00 Note Text: SURGICAL SERVICES PROGRESS NOTE SERVICE DATE: 10/26/2024 SERVICE TIME: 0900 Subjective CHIEF COMPLAINT: Acute appendicitis INTERVAL HISTORY OF PRESENT ILLNESS: Having post-op abdominal pain and shoulder pain, she has not been up to bed because having low BP over night she reports symptoms of dizziness and lightheaded at that time she received 2 fluid boluses. Denies nausea or vomiting she is requesting to have a diet. + flatus Today this morning BP 97/58 asymptomatic 1 fluid bolus given. Current Facility-Administere d Medications Medication Dose Route Frequency NaCl 0.9% iv flush bag 20 mL INTRAVENOUS PRN ondansetron orally disintegrating 4 mg tab(s) (ZOFRAN ODT) 4 mg ORAL q 6 H PRN Or ondansetron (PF) 4 mg injection (ZOFRAN) 4 mg INTRAVENOUS q 6 H PRN acetaminophen 650 mg tab(s) (TYLENOL) 650 mg ORAL q 6 H PRN oxyCODONE IR 5-10 mg tab(s) (ROXICODONE) 5-10 mg ORAL q 4 H PRN HYDROmorphone 0.5 mg injection (DILAUDID) 0.5 mg INTRAVENOUS q 4 H PRN melatonin 3 mg tab(s) 3 mg ORAL DAILY (8 PM) piperacillin-tazobac wagner iv piggyback 3.375 g in dextrose (iso-osmotic) 50 mL (ZOSYN) 3.375 g INTRAVENOUS q 6 H LORazepam 0.5 mg tab(s) (ATIVAN) 0.5 mg ORAL TID PRN lactated ringers iv infusion 100 mL/hr INTRAVENOUS CONTINUOUS Objective PHYSICAL EXAM: BP 97/58 Pulse 103 Temp (Src) 98.2 (Oral) Resp 18 Ht 5' 1 (1.55m) Wt 125 lb 10.6 oz (57.0kg) SpO2 97% BMI 23.76 kg/(m2). O2 Therapy: Room Air Physical Exam Performed GENERAL: Alert, no distress, cooperative SKIN: Skin color, texture, turgor normal. No rashes or lesions. ABDOMEN: Abdomen soft, mildly distended, tender appropriate post-op tenderness, no involuntary guarding, BS normal, WOUND: lap sites clean, dry and intact DATA: Diagnostic tests reviewed for today's visit: Most recent labs and imaging results. Recent Labs 10/26/24 1145 10/26/24 0758 10/26/24 0343 10/25/24 0613 10/24/24 1615 WBC -- -- 11.47* 18.59* 24.52* HB 9.2* -- 9.2* 11.0* 14.0 HCT -- -- 26.8* 31.0* 40.4 PLT -- -- 207 254 333 NA -- -- 135* 137 135* K -- 3.9 -- 3.3* 3.2* CHLOR -- -- 102 101 95* CO2 -- -- 24 BUN -- -- 9 8 10 CREAT -- -- 0.73 0.85 1.07* GLUC -- -- 119* 106* 129* CA -- -- 9.0 9.0 9.9 Assessment/Plan Patient Active Hospital Problem List: Acute appendicitis Date Noted: 10/24/2024 Plan: - Over night patient BP dropped 78/45 patient symptomatic at that time x2 bolus - this morning low BP 97/58 bolus x1 - Morning labs 9.2 repeat Hgb------> 9.2 continue to monitor - Having post-op pain d/t low BP adjusted pain medication d/c dilaudid ----> scheduled Tylenol, oxycodone q 4 hrs, Toradol prn, lidocaine patch, robaxin for muscle spasms - Recommend ambulation - Advanced diet to GI soft - Discussed with patient, RN and SIGNATURE: Kandy Mahoney APRN.CNP PATIENT NAME: Jenna Valadez DATE: October 26, 2024 TIME: 9:24 AM Normal [facility] Hgb Bld-mCncon 10-26-2024 Hemoglobin (Bld) [Mass/Vol] 9.2 g/dL Low 11.5-15.5 [facility] Comment on above: Order Comment: Speci men Type: BLOOD SPECIMEN Ordering Facility: [facility] Address: [address] [place] [address] Performed By: #### 2 4323-8 #### [facility] CLIA [id number] [address] POTASSIUMon 10-26-2024 Potassium [Moles/Vol] 3.9 mmol/L Normal 3.7-5.1 [facility] Comment on above: Order Comment: Regii men Type: BLOOD SPECIMEN Ordering Facility: [facility] Address: [address] [place] [address] Performed By: #### 2 4323-8 #### [facility] CLIA [id number] [address] SEPSIS LACTATEon 10-26-2024 Lactate [Moles/Vol] 1.4 mmol/L Normal 0.5-2.0 [facility] Comment on above: Order Comment: Darrel parson Type: BLOOD SPECIMEN Ordering Facility: [facility] Address: [address] [place] [address] Performed By: #### S LACT #### [facility] CLIA [id number] [address] OF [facility] ANES POSTPROC EVALon 025 ANES POSTPROC EVAL HNO ID: [id number] Author: GARRY IRBY MD Service: Anesthesiology Author Type: Physician Type: Anesthesia Postprocedure Evaluation Filed: 10/25/2024 11:45 Note Text: POST ANESTHESIA EVALUATION NOTE : 1970 Procedure Summary Date: 10/25/24 Room / Location: [facility]01 [facility] Anesthesia Start: 754 Anesthesia Stop: 903 Procedure: LAPAROSCOPIC APPENDECTOMY ADULT (Abdomen) Diagnosis: Acute appendicitis, unspecified acute appendicitis type (Acute appendicitis, unspecified acute appendicitis type [K35.80]) Surgeons: Kushal Bosch MD Responsible Provider: Garry Irby MD Anesthesia Type: general ASA Status: 3 - Emergent Anesthesia Type: general Airway Type: ETT Last Vitals Vitals Value Taken Time BP 95/53 10/25/24 1019 Temp 36.8 ?C (98.2 ?F) 10/25/24 1019 HR SpO2 110 10/25/24 0901 Resp 18 10/25/24 1019 SpO2 95 % 10/25/24 0959 Vitals shown include unfiled device data. Post Anesthesia Patient Status Patient Evaluation: PACU. PACU/ICU Patient Condition: stable. Anticipated Disposition: phase 2 then home. Neurological Status: aware and responsive. Pulmonary Status: breathing comfortably on room air Airway Control: returned to baseline unsupported. Cardiovascular Status: stable. Pain Management: clinically adequate - multimodal analgesia pain management approach Postoperative Hydration: acceptable. Intraoperative Events: no significant anesthesia events Recommendation: continue current plan of care. Anesthesia Observations No Documentation SIGNATURE: Garry Irby MD PATIENT NAME: Jenna Valadez DATE: October 25, 2024 TIME: 11:45 AM CSN: [id number] [facility] ANES PRE-OPon 10-25-2024 ANES PRE-OP HNO ID: [id number] Author: GARRY IRBY MD Service: Anesthesiology Author Type: Physician Type: Anesthesia Preprocedure Evaluation Filed: 10/25/2024 07:36 Note Text: ANESTHESIOLOGY DAY OF SURGERY NOTE : 1970 Procedure Information Date/Time: 10/25/24729 Procedure: LAPAROSCOPIC APPENDECTOMY ADULT (Abdomen) Location: [facility] OR01 / [facility] OR Surgeons: Kushal Bosch MD Estimated body mass index is 23.74 kg/m? as calculated from the following: Height as of this encounter: 154.9 cm (5' 1). Weight as of this encounter: 57 kg (125 lb 10.6 oz). Most recent hematocrit and potassium results: Hematocrit 31.0 10/25/2024 Potassium 3.3 10/25/2024 Relevant Problems PULMONARY (+) Emphysema lung (HCC) (+) SOB (shortness of breath) I - PHYSICAL EVALUATION AIRWAY Patient intubated: No. Tracheostomy tube not present Mallampati: II. TM distance: >3 FB. Neck ROM: full ROM without neurological symptoms. Mouth opening: adequate. Short neck: no. Thick neck: no DENTAL Dental findings: missing tooth/teeth. Additional exam findings: no II - ANESTHESIA PLAN ASA Score: 3; emergent. Anesthetic Plan: general Airway type: ETT NPO Status: adequate Anesthetic plan additional comments: Had some nausea but no vomiting. Pain is improved this morning.. Beta David Monitoring Plan Monitoring plan: Standard ASA. Post Procedure Analgesic Plan Postoperative analgesic plan: parenteral or oral opioids and multimodal analgesia. Informed Consent Anesthetic risks, benefits, alternatives, personnel and consent discussed: yes. Patient / Responsible Constitution Party agrees to proceed: yes Patient / Surrogate agrees to blood products: yes DNR status not reviewed with patient and/or family prior to surgery. Significant changes in the patient condition since the History and Physical, not otherwise documented in primary service progress note: no. Potential Anesthesia issues that may suggest increased risk of complications or contraindication to planned procedure: none. Vitals Value Taken Time BP 92/55 10/25/24 0605 Pulse 114 10/25/24 0605 Resp Temp SpO2 96 % 10/25/24 0605 Facility-Administere d Medications as of 10/25/2024 Medication Dose Route Frequency [COMPLETED] lactated ringers 1,000 mL iv bolus 1,000 mL INTRAVENOUS ONCE [Transfer Hold] potassium chloride iv piggyback 20 mEq/100 mL 20 mEq INTRAVENOUS q 1 H ceFAZolin iv piggyback 2 g in D5W (iso-osmotic) 100 mL (ANCEF) 2 g INTRAVENOUS Pre-Op Once clindamycin iv piggyback 900 mg in D5W 50 mL (CLEOCIN) 900 mg INTRAVENOUS Pre-Op Once lactated ringers iv infusion 75 mL/hr INTRAVENOUS CONTINUOUS [COMPLETED] cefTRIAXone iv piggyback 1 g in dextrose (iso-osmotic) 50 mL (ROCEPHIN) 1 g INTRAVENOUS ONCE [COMPLETED] piperacillin-tazobac wagner iv piggyback 3.375 g in dextrose (iso-osmotic) 50 mL (ZOSYN) 3.375 g INTRAVENOUS ONCE [COMPLETED] morphine 4 mg injection 4 mg INTRAVENOUS ONCE [COMPLETED] LORazepam 0.5 mg injection (ATIVAN) 0.5 mg INTRAVENOUS ONCE [Transfer Hold] NaCl 0.9% iv flush bag 20 mL INTRAVENOUS PRN [Transfer Hold] lactated ringers iv infusion 100 mL/hr INTRAVENOUS CONTINUOUS [Transfer Hold] ondansetron orally disintegrating 4 mg tab(s) (ZOFRAN ODT) 4 mg ORAL q 6 H PRN Or [Transfer Hold] ondansetron (PF) 4 mg injection (ZOFRAN) 4 mg INTRAVENOUS q 6 H PRN [Transfer Hold] acetaminophen 650 mg tab(s) (TYLENOL) 650 mg ORAL q 6 H PRN [Transfer Hold] oxyCODONE IR 5-10 mg tab(s) (ROXICODONE) 5-10 mg ORAL q 4 H PRN [Transfer Hold] HYDROmorphone 0.5 mg injection (DILAUDID) 0.5 mg INTRAVENOUS q 4 H PRN [Transfer Hold] melatonin 3 mg tab(s) 3 mg ORAL DAILY (8 PM) [Transfer Hold] piperacillin-tazobac wagner iv piggyback 3.375 g in dextrose (iso-osmotic) 50 mL (ZOSYN) 3.375 g INTRAVENOUS q 6 H [Transfer Hold] LORazepam 0.5 mg tab(s) (ATIVAN) 0.5 mg ORAL TID PRN Outpatient Medications as of 10/25/2024 Medication Sig albuterol HFA (PROVENTIL HFA, VENTOLIN HFA) 90 mcg/actuation inhaler Inhale 2 Puffs as instructed every 4 hours as needed for wheezing/shortness of breath. I have interviewed and examined the patient. I have reviewed the medical record and/or the pre-anesthesia evaluation, pertinent labs, and test results. This contains updated information obtained within 48 hours of Surgery/Procedure. SIGNATURE: Garry Irby MD PATIENT NAME: Jenna Valadez DATE: October 25, 2024 TIME: 7:35 AM CSN: [id number] [facility] BRIEF OP NOTon 10-25-2024 BRIEF OP NOT HNO ID: [id number] Author: KUSHAL BOSCH MD Service: General Surgery Author Type: Physician Type: Brief Op Note Filed: 10/25/2024 08:52 Note Text: BRIEF OPERATIVE NOTATION FOR SURGICAL PROCEDURE. Jenna Valadez 1970 [id number] female LOG ID: [id number] Surgery/Procedure Date: 10/25/2024 Incision/Procedure Start Time: 8:16 AM Incision Close/Procedure End Time: 8:48 AM Surgeon(s)/Procedura list(s) and Page Technician(s): Surgeons and Role: * Kushal Bosch MD - Primary Physician Page Technician: Ashely Grande PA-C REFERRING PHYSICIAN: Inpatient - Admit Date: Discharge Date: DEPT: [facility] PROVIDER: Sophia POS: [id number] ANESTHESIA: General ASA CLASS: 3E - severe emergency DIAGNOSIS: acute appendicitis PROCEDURE: laparoscopic appendectomy - [id number] IVF: 500cc 5% albumin, 1000cc crystalloid EBL: 10 Specimens: appendix ADDITIONAL DIAGNOSES: FINDINGS: perforated gangrenous appendicitis COMPLICATIONS: None PMHx - PAST MEDICAL HISTORY Diagnosis Date Anxiety Depression Emphysema lung (HCC) 08/14/2016 Hypokalemia Hypomagnesemia Low HDL (under 40) COMORBIDITIES - COPD Post Op Occurrences - None Wound Classification - Contaminated Operative note dictated in the dictation system. - [id number] Kushal Bosch MD [facility] Basic metabolic 2000 panelon 10-25-2024 Anion gap [Moles/Vol] 9 mmol/L Normal 8-15 [facility] Comment on above: Order Comment: Speci men Type: BLOOD SPECIMEN Ordering Facility: [facility] Address: [address] [place] [address] Performed By: #### 2 4323-8 #### [facility] CLIA [id number] [address] [place] [address] [place] Calcium [Mass/Vol] 9.0 mg/dL Normal 8.5-10.2 [facility] Comment on above: Order Comment: Speci men Type: BLOOD SPECIMEN Ordering Facility: [facility] Address: [address] [place] [address] Performed By: #### 2 4323-8 #### [facility] CLIA [id number] [address] [place] [address] [place] Chloride [Moles/Vol] 101 mmol/L Normal 98-107 [facility] Comment on above: Order Comment: Regii men Type: BLOOD SPECIMEN Ordering Facility: [facility] Address: [address] [place] [address] Performed By: #### 2 4323-8 #### [facility] CLIA [id number] [address] [place] CO2 [Moles/Vol] 27 mmol/L Normal 22-30 [facility] Comment on above: Order Comment: Darrel parson Type: BLOOD SPECIMEN Ordering Facility: [facility] Address: [address] [place] [address] Performed By: #### 2 4323-8 #### [facility] CLIA [id number] [address] Creatinine [Mass/Vol] 0.85 mg/dL Normal 0.58-0.96 [facility] Comment on above: Order Comment: Darrel parson Type: BLOOD SPECIMEN Ordering Facility: [facility] Address: [address] [place] [address] Performed By: #### 2 4323-8 #### [facility] CLIA [id number] [address] Creatinine and Glomerular filtration rate.predicted panel (S/P/Bld) 81 mL/min/1.73m??? Normal >=60 [facility] Comment on above: Order Comment: Darrel parson Type: BLOOD SPECIMEN Ordering Facility: [facility] Address: [address] [place] [address] Result Comment: Zara mated Glomerular Filtration Rate (eGFR) is calculated using the 2020 CKD-EPI creatinine equation. This equation utilizes serum creatinine, sex, and age as parameters. The creatinine assay has traceable calibration to isotope dilution-mass spectrometry. Refer to KDIGO guidelines for clinical interpretation. In patients with unstable renal function, e.g. those with acute kidney injury, the eGFR may not accurately reflect actual GFR. Performed By: #### 2 4323-8 #### [facility] CLIA [id number] [address] [place] Glucose [Mass/Vol] 106 mg/dL High 74-99 [facility] Comment on above: Order Comment: Darrel parson Type: BLOOD SPECIMEN Ordering Facility: [facility] Address: [address] [place] [address] Result Comment: The [place] Diabetes Association (ADA) provides guidance for cutoff values for fasting glucose and random glucose. The ADA defines fasting as no caloric intake for at least 8 hours. Fasting plasma glucose results between 100 to 125 mg/dL indicate increased risk for diabetes (prediabetes). Fasting plasma glucose results greater than or equal to 126 mg/dL meet the criteria for diagnosis of diabetes. In the absence of unequivocal hyperglycemia, results should be confirmed by repeat testing. In a patient with classic symptoms of hyperglycemia or hyperglycemic crisis, random plasma glucose results greater than or equal to 200 mg/dL meet the criteria for diagnosis of diabetes. Reference: Standards of Medical Care in Diabetes 2016, [place] [employer] Association. Diabetes Care. 2016.39(Suppl 1). Performed By: #### 2 4323-8 #### [facility] CLIA [id number] [address] STATES OF [facility] Potassium [Moles/Vol] 3.3 mmol/L Low 3.7-5.1 [facility] Comment on above: Order Comment: Darrel parson Type: BLOOD SPECIMEN Ordering Facility: [facility] Address: [address] [place] [address] Performed By: #### 2 4323-8 #### [facility] CLIA [id number] [address] Sodium [Moles/Vol] 137 mmol/L Normal 136-144 [facility] Comment on above: Order Comment: Darrel parson Type: BLOOD SPECIMEN Ordering Facility: [facility] Address: [address] [place] [address] Performed By: #### 2 4323-8 #### [facility] CLIA [id number] [address] Urea nitrogen [Mass/Vol] 8 mg/dL Normal 7-21 [facility] Comment on above: Order Comment: Regii men Type: BLOOD SPECIMEN Ordering Facility: [facility] Address: [address] [place] [address] Performed By: #### 2 4323-8 #### [facility] CLIA [id number] [address] CBC panel Auto (Bld)on 10-25 Erythrocyte distribution width (RBC) [Ratio] 13.3 % Normal 11.5-15.0 [facility] Comment on above: Order Comment: Darrel parson Type: BLOOD SPECIMEN Ordering Facility: [facility] Address: [address] [place] [address] Performed By: #### 2 4323-8 #### [facility] CLIA [id number] [address] OF [facility] Hematocrit (Bld) [Volume fraction] 31.0 % Low 36.0-46.0 [facility] Comment on above: Order Comment: Speci men Type: BLOOD SPECIMEN Ordering Facility: [facility] Address: [address] [place] [address] Performed By: #### 2 4323-8 #### [facility] CLIA [id number] [address] [place] Hemoglobin (Bld) [Mass/Vol] 11.0 g/dL Low 11.5-15.5 [facility] Comment on above: Order Comment: Speci men Type: BLOOD SPECIMEN Ordering Facility: [facility] Address: [address] [place] [address] Performed By: #### 2 4323-8 #### [facility] CLIA [id number] [address] MCH (RBC) [Entitic mass] 29.7 pg Normal 26.0-34.0 [facility] Comment on above: Order Comment: Speci men Type: BLOOD SPECIMEN Ordering Facility: [facility] Address: [address] [place] [address] Performed By: #### 2 4323-8 #### [facility] CLIA [id number] [address] [place] MCHC (RBC) [Mass/Vol] 35.5 g/dL Normal 30.5-36.0 [facility] Comment on above: Order Comment: Speci men Type: BLOOD SPECIMEN Ordering Facility: [facility] Address: [address] [place] [address] Performed By: #### 2 4323-8 #### [facility] CLIA [id number] [address] MCV (RBC) [Entitic vol] 83.8 fL Normal 80.0-100.0 [facility] Comment on above: Order Comment: Speci men Type: BLOOD SPECIMEN Ordering Facility: [facility] Address: [address] [place] [address] Performed By: #### 2 4323-8 #### [facility] CLIA [id number] [address] [place] [address] [place] Nucleated RBC (Bld) [#/Vol] 10*3/uL Normal <0.01 [facility] Comment on above: Order Comment: Speci men Type: BLOOD SPECIMEN Ordering Facility: [facility] Address: [address] [place] [address] Performed By: #### 2 4323-8 #### [facility] CLIA [id number] [address] [place] Platelet mean volume (Bld) [Entitic vol] 9.0 fL Normal 9.0-12.7 [facility] Comment on above: Order Comment: Speci men Type: BLOOD SPECIMEN Ordering Facility: [facility] Address: [address] [place] [address] Performed By: #### 2 4323-8 #### [facility] CLIA [id number] [address] [place] Platelets (Bld) [#/Vol] 254 10*3/uL Normal 150-400 [facility] Comment on above: Order Comment: Speci men Type: BLOOD SPECIMEN Ordering Facility: [facility] Address: [address] [place] [address] Performed By: #### 2 4323-8 #### [facility] CLIA [id number] [address] [place] [address] [place] RBC (Bld) [#/Vol] 3.70 10*6/uL Low 3.90-5.20 [facility] Comment on above: Order Comment: Speci men Type: BLOOD SPECIMEN Ordering Facility: [facility] Address: [address] [place] [address] Performed By: #### 2 4323-8 #### [facility] CLIA [id number] [address] [place] [address] [place] WBC (Bld) [#/Vol] 18.59 10*3/uL High 3.70-11.00 [facility] Comment on above: Order Comment: Speci men Type: BLOOD SPECIMEN Ordering Facility: [facility] Address: [facility] [place] [address] Performed By: #### 2 4323-8 #### [facility] CLIA [id number] [address] [place] [address] [place] HISTORY PHYSICALon HISTORY PHYSICAL HNO ID: [id number] Author: KUSHAL BOSCH MD Service: General Surgery Author Type: Physician Type: H&P Filed: 10/25/2024 07:34 Note Text: HISTORY AND PHYSICAL EXAMINATION SERVICE DATE: 10/25/2024 SERVICE TIME: 7:26 AM PRIMARY CARE PHYSICIAN: Anmol Chen MD Subjective CHIEF COMPLAINT: abdominal pain HPI: This is a 54 year old female who presents with a history of abdominal pain starting early Thursday morning. Patient initially had vague abdominal pain which is now localized to right lower quadrant. She denied nausea vomiting or fever or chills. She present emergency department was found of a elevated white blood count of 24,[address] scan of the abdomen pelvis was obtained. This demonstrated acute appendicitis. FUNCTIONAL STATUS: Independent PAST MEDICAL HISTORY Diagnosis Date Anxiety Depression Emphysema lung (HCC) 08/14/2016 Hypokalemia Hypomagnesemia Low HDL (under 40) PAST SURGICAL HISTORY Procedure Laterality Date COLONOSCOPY 08/19/2016 EGD 08/19/2016 FAMILY HISTORY Problem Relation Age of Onset Breast Cancer Mother Heart Maternal Grandmother Diabetes Maternal Grandmother Arthritis Maternal Uncle Breast Cancer Sister Breast Cancer Paternal Aunt Social History Tobacco Use Smoking status: Every Day Current packs/day: 1.00 Average packs/day: 1 pack/day for 25.0 years (25.0 ttl pk-yrs) Types: Cigarettes Smokeless tobacco: Never Vaping Use Vaping status: Never Used Substance Use Topics Alcohol use: No Drug use: Not Currently Types: Marijuana Prior to Admission Medications Prescriptions Last Dose Informant Patient Reported? Taking? albuterol HFA (PROVENTIL HFA, VENTOLIN HFA) 90 mcg/actuation inhaler No No Sig: Inhale 2 Puffs as instructed every 4 hours as needed for wheezing/shortness of breath. Facility-Administere d Medications: None ALLERGIES Allergen Reactions Prozac [Fluoxetine * Other: See Comments headaches Wellbutrin [Bupropi* Other: See Comments Increased anxiety and stomach ache COMPLETE REVIEW OF SYSTEMS: Constitutional: Positive for fever. Respiratory: Negative for cough and shortness of breath. Cardiovascular: Negative for chest pain. Gastrointestinal: Positive for abdominal distention, abdominal pain, constipation and nausea. Negative for diarrhea and vomiting. Genitourinary: Negative for dysuria, flank pain and hematuria. Musculoskeletal: Negative for back pain. Skin: Negative for rash. Neurological: Negative for weakness and numbness. Psychiatric/Behavior al: Negative for agitation and confusion. Objective PHYSICAL EXAM: Physical Exam Performed: GENERAL: Alert, no distress, cooperative EYES: PERRLA, EOMI OROPHARYNX: Lips, mucosa, and tongue normal. Teeth and gums normal. Oropharynx normal. LUNGS: Lungs clear to auscultation, Good diaphragmatic excursion CARDIAC: Normal S1 and S2; no rubs, murmurs, or gallops ABDOMEN: soft, RLQ tenderness BP 92/55 Pulse 114 Temp (Src) 99 (Oral) Resp 17 Ht 5' 1 (1.55m) Wt 125 lb 10.6 oz (57.0kg) SpO2 96% BMI 23.76 kg/(m2). O2 Therapy: Room Air DATA: Diagnostic tests reviewed for today's visit: Most recent labs and imaging results. Assessment/Plan Active Hospital Problems Acute appendicitis (POA: Yes) I plan to perform a laparoscopic appendectomy. The planned surgical procedure was discussed extensively with the patient. The risks, benefits and anticipated outcomes of the procedure, the risks and benefits of the alternatives to the procedure, and the roles and tasks of the personnel to be involved, were discussed with the patient. My staff has also explained the procedure in understandable terms and the patient was given the option to take printed material concerning the planned procedure. The patient had the opportunity to ask questions concerning the planned procedure. The patient freely consents to the planned procedure. Assessment AND Plan Acute appendicitis Medication and Non-Pharmacologic VTE Prophylaxis/Anticoag ulants VTE Prophylaxis: VTE prophylaxis appropriate SIGNATURE: Kushal Bosch MD PATIENT NAME: Jenna Valadez DATE: October 25, 2024 TIME: 7:26 AM Normal [facility] NUTRITIONon 10-25-2024 NUTRITION HNO ID: [id number] Author: JENNA KHAN RD Service: Nutrition Therapy Author Type: Registered Dietitian Type: Nutrition Filed: 10/25/2024 14:23 Note Text: NUTRITION THERAPY SCREEN NOTE SERVICE DATE: 10/25/2024 SERVICE TIME: 1:03 PM Care Plan: Follow for diet advancement to goal Monitor intake Monitor and Evaluation: Meet greater than 75% of estimated needs Physician progress notes and labs reviewed. HPI: Acute appendicitis s/p appendectomy this morning. Hypokalemia on labs, potassium chloride on scheduled medication list. Intake History: Nutrition Intake Prior to Admission: Less than 75% estimated energy needs (past 3 days) Current Nutrition Intake: (On Clear Liquid diet) Pt reports feeling tired and nausea but tolerated clear liquids this afternoon. Prior to past 3 days has a good appetite and eats well. Diet Orders (From admission, onward) Start Ordered 10/25/24 1030 DIET LIQUID START NOW Question: Liquid Diet Answer: CLEAR LIQUID 10/25/24 1016 Anthropometrics: Height: 154.9 cm (5' 1) Weight: 57 kg (125 lb 10.6 oz) Usual Weight: 55.8 kg (123 lb) 03/14/24. 09/03/23 124lbs Usual Weight Obtained From: Chart Review Weight Change: Stable weight(s) MNT Billing: $ Initial Assessment: 1-15 minutes SIGNATURE: Jenna Khan RD PATIENT NAME: Jenna Valadez DATE: October 25, 2024 TIME: 2:18 PM Normal [facility] OPERATIVE NOon 10-25-2024 OPERATIVE NO HNO ID: [id number] Author: KUSHAL BOSCH MD Service: General Surgery Author Type: Physician Type: Operative Report Filed: 10/25/2024 11:13 Note Text: [facility] - Operative Report JENNA VALADEZ : 1970 AGE: 54. SEX: F PATIENT TYPE: V HOSP SVC: Surgical LOCATION: [facility] ATTENDING PHYSICIAN: CHIKA CASTAÑEDA CSN NUMBER: [id number] DATE OF SURGERY/PROCEDURE: 10/25/2024 INCISION/PROCEDURE START TIME: 8:16 a.m. INCISION CLOSE/PROCEDURE END TIME: 8:48 a.m. PREOPERATIVE DIAGNOSIS: Acute appendicitis. POSTOPERATIVE DIAGNOSIS: Acute gangrenous perforated appendicitis. SURGEON: Kushal Bosch M.D. MAIL AGENT: Ashely Grande PA-C. SURGERY/PROCEDURE: Laparoscopic appendectomy. ANESTHESIA: General endotracheal. LOG ID: [id number]. ANESTHESIOLOGIST: Dr. Garry Irby. ASA: 3E. INTRAVENOUS FLUIDS: 1000 mL crystalloid, 500 mL of 5% albumin. ESTIMATED BLOOD LOSS: 10 mL. SPECIMENS: Appendix. DRAINS: None. COMPLICATIONS: None. DISPOSITION: Patient taken to PACU in stable condition. DESCRIPTION OF PROCEDURE: Sign-in was performed verifying the patient, site, procedure, position, critical nursing information, VTE and antibiotic were given for presumed appendicitis. She had SCDs for VTE prophylaxis. She was given Zosyn for known appendicitis. Following induction of general anesthetic, the patient was prepped and draped in usual fashion. Time-out was performed verifying patient, site, procedure, position. Local anesthetic was injected into the umbilicus. Incision was made, dissecting the fascia. Two stay sutures were placed in the fascia. Incision was made through the fascia and peritoneum under direct visualization. Betzaida trocar was inserted through a stay suture. Pneumoperitoneum to 15 mmHg was insufflated. Two 5 mm ports placed in position. Visual inspection revealed adhesions. Turbid fluid consistent with perforated appendicitis. The appendix was found posterior to the right tube and ovary. It was noted to be gangrenous. There was noted to be turbid fluid and small fecalith present. The appendix was brought up out of the area of attachment. The mesoappendix was transected with the Sonicision. The base of the appendix was transected with intestinal Endo-RYAN stapler. The appendix was placed in endobag and removed from the umbilical port site. 0 PDS [id number] suture was placed in the port site defect. The pelvis both in front and behind the uterus were irrigated and aspirated with saline. The area of the base of the appendix was irrigated and aspirated as was the fluid collection up between the ascending colon. Following this, with good hemostasis, the 5 ports were removed under direct visualization. No signs of bleeding. Pneumoperitoneum was released. Umbilical trocar was removed. The umbilical fascia was secured. Skin was closed with interrupted 4-0 Monocryl subcutaneous suture. Steri-Strips dressing was applied. The patient tolerated the procedure well, brought to recovery room in stable condition. Ashely Grande was my 1st commercial escrow assistant. She assisted in visualization, retraction, and performed subcuticular closure. There were no surgeons or qualified residents available. Kushal Bosch M.D. RG:[id number] /[id number] [facility] Pathology biopsy report Cody (Tiss)on 10-25-2024 AP DISCLAIMER [facility] Comment on above: Order Comment: Speckathy parson Type: BLOOD SPECIMEN Ordering Facility: [facility] Address: [address] [place] [address] Result Comment: Gerald tariq Developed Test (LDT) Disclaimer: Performance characteristics of immunohistochemical, immunofluorescent, and chromogenic in-situ hybridization tests have been determined by the performing laboratory within [facility]'s [facility] Pathology and Laboratory Medicine Department ([facility], [facility], [facility], [facility], [facility], [facility], or [facility]) in a manner consistent with CLIA requirements. One or more of these tests may not have been cleared or approved by the FDA. [facility] is regulated under CLIA as qualified to perform high-complexity testing. These tests are used for clinical purposes. These should not be regarded as investigational or for research. Positive and negative controls stain appropriately. Performed By: #### S LACT #### [facility] CLIA [id number] [address] [place] CASE REPORT Normal [facility] Comment on above: Order Comment: Darrel parson Type: BLOOD SPECIMEN Ordering Facility: [facility] Address: [address] [place] [address] Result Comment: Surg ica Pathology Report Case: [id number] Authorizing Provider: Kushal Bosch MD Collected: 10/25/2024 08:27 AM Ordering Location: [facility] Surgery Received: 10/25/2024 09:23 AM Pathologist: Radha Betancourt MD, PhD Specimen: Appendix, Appendectomy Performed By: #### S LACT #### [facility] CLIA [id number] [address] [place] CLINICAL HISTORY Normal [facility] Comment on above: Order Comment: Speci men Type: BLOOD SPECIMEN Ordering Facility: [facility] Address: [address] [place] [address] Result Comment: Pre- op diagnosis: Acute appendicitis, unspecified acute appendicitis type [K35.80] Performed By: #### S LACT #### [facility] CLIA [id number] [address] FINAL DIAGNOSIS [facility] Comment on above: Order Comment: Speci men Type: BLOOD SPECIMEN Ordering Facility: [facility] Address: [address] [place] [address] Result Comment: A. A ppendix, Appendectomy: - Acute necrotizing appendicitis with periappendicitis and serositis. at 1517 EST Performed By: #### S LACT #### [facility] CLIA [id number] [address] FINAL PERFORMING LAB Normal [facility] Comment on above: Order Comment: Speci men Type: BLOOD SPECIMEN Ordering Facility: [facility] Address: [address] [place] [address] Result Comment: Diag nostic interpretation performed at: [facility], [address] [place] [address], [place] [address] CLIA# [id number] Oceanographer Assistant: Preston Hampton MD Performed By: #### S LACT #### [facility] CLIA [id number] [address] GROSS DESCRIPTION [facility] Comment on above: Order Comment: Speci men Type: BLOOD SPECIMEN Ordering Facility: [facility] Address: [address] [place] [address] Result Comment: A. A ppendix, Appendectomy Received in formalin labeled appendix is a 4.0 cm in length by 1.1 cm in diameter vermiform appendix with moderate attached mesoappendix. The proximal margins are inked blue. The serosal surface is hdz-blanchard, markedly diffusely disrupted and covered by fibrinous exudate. Sectioning reveals a 0.2 to 0.5 cm markedly disrupted lumen, proximally filled by a 0.8 x 0.7 x 0.5 cm firm brown fecalith. The mucosal surface is blanchard and markedly ulcerated with a wall thickness of 1 to 2 mm. Hand Bunch Maker sections are submitted as follows: A1 proximal margins and distal tips, A2 ulcerated disrupted appendix at site of fecalith. Gross examination performed at [facility], [address] [place], [place] [id number] [facility] 10/25/24 Performed By: #### S LACT #### [facility] CLIA [id number] [address] SEPSIS LACTATEon 10-25-2024 Lactate [Moles/Vol] 0.8 mmol/L Normal 0.5-2.0 [facility] Comment on above: Order Comment: Speci men Type: BLOOD SPECIMEN Ordering Facility: [facility] Address: [address] [place] [address] Performed By: #### S LACT #### [facility] CLIA [id number] [address] ALLIED HEALTHon 10-24-2024 ALLIED HEALTH HNO ID: [id number] Author: GAIL ALICIA RT(R) Service: Radiology Author Type: Crime Scene Photographer Type: Allied Health Filed: 10/24/2024 17:19 Note Text: Radiology Service Progress Note DATE OF SERVICE: October 24, 2024 TIME: 5:19 PM PATIENT IDENTITY VERIFICATION COMPLETED USING TWO (2) STANDARD IDENTIFIERS: Name and Date of confirmed by patient verbally. FALL SCREENING: Has the patient had 2 falls in the last year or 1 fall with injury or currently using an Ambulatory Assistive Device (Walker, Cane, Wheelchair, Crutches, etc.)? Emergency Room Patient: Screened in ED PATIENT GENDER DATA: Assigned female at . status: : No status: NO. PATIENT RELEVANT IMPLANT DATA REVIEWED: Yes PATIENT PRESENTS WITH AN IMPLANTABLE OR ATTACHED ENGAGEMENT LIAISON: No ALLERGIES: Reviewed and unchanged CONTRAST ALLERGY: NO. EXAM: CT -CONTRAST INDUCED NEPHROPATHY RISK FACTORS: Not applicable CREATININE: Creatinine Date Value Ref Range Status 10/24/2024 1.07 (H) 0.58 - 0.96 mg/dL Final 01/12/2024 0.70 0.58 - 0.96 mg/dL Final 12/13/2020 0.73 0.58 - 0.96 mg/dL Final Estimated Glomerular Filtration Rate Date Value Ref Range Status 10/24/2024 61 >=60 mL/min/1.73m? Final Comment: Estimated Glomerular Filtration Rate (eGFR) is calculated using the 2020 CKD-EPI creatinine equation. This equation utilizes serum creatinine, sex, and age as parameters. The creatinine assay has traceable calibration to isotope dilution-mass spectrometry. Refer to KDIGO guidelines for clinical interpretation. In patients with unstable renal function, e.g. those with acute kidney injury, the eGFR may not accurately reflect actual GFR. eGFR- Date Value Ref Range Status 12/13/2020 >60 Final P.O.C.T. RESULTS: POC done: Yes, See Lab Tab October 24, 2024 TREATMENT: N/A PERIPHERAL IV DATA: Inpatient - refer to [facility] documentation RADIOLOGY DEPARTMENT: CT; Exam(s) Completed: Abdomen/Pelvis SIGNATURE: RT Carlos(R) PATIENT NAME: Jenna Valadez DATE: October 24, 2024 TIME: 5:19 PM Normal [facility] Bacteria Bld Culton 10-24-19 25 Bacteria identified Cx Nom (Bld) CULTURE, BLOOD: No growth 5 days Normal [facility] Comment on above: Performed By: #### S LACTR #### [facility] CLIA [id number] [address] [place] [address] [place] Bacteria Ur Culton 5 Bacteria identified Cx Nom (U) CULTURE, URINE: <10,000 CFU/ml Normal Urogenital Ling Normal [facility] Comment on above: Performed By: #### C JEAN CLAUDE, [id number] #### [facility] CLIA [id number] [address] OF [facility] CBC W Auto Differential pane l (Bld)on 10-24-2024 Basophils (Bld) [#/Vol] 0.00 10*3/uL Normal <0.11 [facility] Comment on above: Order Comment: Speci men Type: BLOOD SPECIMEN Ordering Facility: [facility] Address: [address] [place] [address] Performed By: #### 5 7021-8 #### [facility] CLIA [id number] [address] [place] [address] [place] Basophils/100 WBC (Bld) 0.0 % Normal [facility] Comment on above: Order Comment: Speci men Type: BLOOD SPECIMEN Ordering Facility: [facility] Address: [address] [place] [address] Performed By: #### 5 7021-8 #### [facility] CLIA [id number] [address] [place] [address] [facility] [place] Differential cell count method Nom (Bld) Manual Normal [facility] Comment on above: Order Comment: Speci men Type: BLOOD SPECIMEN Ordering Facility: [facility] Address: [address] [place] [address] Performed By: #### 5 7021-8 #### [facility] CLIA [id number] [address] [place] [address] [place] Eosinophils (Bld) [#/Vol] 0.00 10*3/uL Normal <0.46 [facility] Comment on above: Order Comment: Speci men Type: BLOOD SPECIMEN Ordering Facility: [facility] Address: [address] [place] [address] Performed By: #### 5 7021-8 #### [facility] CLIA [id number] [address] [place] [address] [facility] [place] Eosinophils/100 WBC (Bld) 0.0 % Normal [facility] Comment on above: Order Comment: Speci men Type: BLOOD SPECIMEN Ordering Facility: [facility] Address: [address] [place] [address] Performed By: #### 5 7021-8 #### [facility] CLIA [id number] [address] [place] [address] [facility] [place] Erythrocyte distribution width (RBC) [Ratio] 13.0 % Normal 11.5-15.0 [facility] Comment on above: Order Comment: Speci men Type: BLOOD SPECIMEN Ordering Facility: [facility] Address: [address] [place] [address] Performed By: #### 5 7021-8 #### [facility] CLIA [id number] [address] [place] [address] [place] Hematocrit (Bld) [Volume fraction] 40.4 % Normal 36.0-46.0 [facility] Comment on above: Order Comment: Speci men Type: BLOOD SPECIMEN Ordering Facility: [facility] Address: [address] [place] [address] Performed By: #### 5 7021-8 #### [facility] CLIA [id number] [address] [place] [address] [place] Hemoglobin (Bld) [Mass/Vol] 14.0 g/dL Normal 11.5-15.5 [facility] Comment on above: Order Comment: Speci men Type: BLOOD SPECIMEN Ordering Facility: [facility] Address: [address] [place] [address] Performed By: #### 5 7021-8 #### [facility] CLIA [id number] [address] [place] [address] [place] Lymphocytes (Bld) [#/Vol] 1.72 10*3/uL Normal 1.00-4.00 [facility] Comment on above: Order Comment: Speci men Type: BLOOD SPECIMEN Ordering Facility: [facility] Address: [address] [place] [address] Performed By: #### 5 7021-8 #### [facility] CLIA [id number] [address] [place] [address] [place] Lymphocytes/100 WBC (Bld) 7.0 % Normal [facility] Comment on above: Order Comment: Speci men Type: BLOOD SPECIMEN Ordering Facility: [facility] Address: [address] [place] [address] Performed By: #### 5 7021-8 #### [facility] CLIA [id number] [address] [place] [address] [place] MCH (RBC) [Entitic mass] 28.8 pg Normal 26.0-34.0 [facility] Comment on above: Order Comment: Speci men Type: BLOOD SPECIMEN Ordering Facility: [facility] Address: [address] [place] [address] Performed By: #### 5 7021-8 #### [facility] CLIA [id number] [address] [place] [id number] [place] [address] [place] MCHC (RBC) [Mass/Vol] 34.7 g/dL Normal 30.5-36.0 [facility] Comment on above: Order Comment: Speci men Type: BLOOD SPECIMEN Ordering Facility: [facility] Address: [address] [place] [address] Performed By: #### 5 7021-8 #### [facility] CLIA [id number] [address] [place] [address] [place] MCV (RBC) [Entitic vol] 83.1 fL Normal 80.0-100.0 [facility] Comment on above: Order Comment: Speci men Type: BLOOD SPECIMEN Ordering Facility: [facility] Address: [address] [place] [address] Performed By: #### 5 7021-8 #### [facility] CLIA [id number] [address] [place] [address] [place] Monocytes (Bld) [#/Vol] 1.96 10*3/uL High <0.87 [facility] Comment on above: Order Comment: Speci men Type: BLOOD SPECIMEN Ordering Facility: [facility] Address: [address] [place] [address] Performed By: #### 5 7021-8 #### [facility] CLIA [id number] [address] [place] [address] [facility] Monocytes/100 WBC (Bld) 8.0 % Normal [facility] Comment on above: Order Comment: Speci men Type: BLOOD SPECIMEN Ordering Facility: [facility] Address: [address] [place] [address] Performed By: #### 5 7021-8 #### [facility] CLIA [id number] [address] [place] [address] [place] Neutrophils (Bld) [#/Vol] 20.84 10*3/uL High 1.45-7.50 [facility] Comment on above: Order Comment: Speci men Type: BLOOD SPECIMEN Ordering Facility: [facility] Address: [address] [place] [address] Performed By: #### 5 7021-8 #### [facility] CLIA [id number] [address] [place] [address] [place] Neutrophils/100 WBC (Bld) 85.0 % Normal [facility] Comment on above: Order Comment: Speci men Type: BLOOD SPECIMEN Ordering Facility: [facility] Address: [address] [place] [address] Performed By: #### 5 7021-8 #### [facility] CLIA [id number] [address] [place] [address] [place] Nucleated RBC (Bld) [#/Vol] 10*3/uL Normal <0.01 [facility] Comment on above: Order Comment: Speci men Type: BLOOD SPECIMEN Ordering Facility: [facility] Address: [address] [place] [address] Performed By: #### 5 7021-8 #### [facility] CLIA [id number] [address] [place] [address] [place] Nucleated RBC/100 WBC (Bld) [Ratio] 0.0 /100 WBC Normal [facility] Comment on above: Order Comment: Speci men Type: BLOOD SPECIMEN Ordering Facility: [facility] Address: [address] [place] [address] Performed By: #### 5 7021-8 #### [facility] CLIA [id number] [address] [place] [address] [place] Platelet mean volume (Bld) [Entitic vol] 8.9 fL Low 9.0-12.7 [facility] Comment on above: Order Comment: Speci men Type: BLOOD SPECIMEN Ordering Facility: [facility] Address: [address] [place] [address] Performed By: #### 5 7021-8 #### [facility] CLIA [id number] [address] [place] [address] [facility] [place] Platelets (Bld) [#/Vol] 333 10*3/uL Normal 150-400 [facility] Comment on above: Order Comment: Speci men Type: BLOOD SPECIMEN Ordering Facility: [facility] Address: [address] [place] [address] Performed By: #### 5 7021-8 #### [facility] CLIA [id number] [address] [place] [address] [place] Platelets Estimate (Bld) [#/Vol] Adequate Normal [facility] Comment on above: Order Comment: Speci men Type: BLOOD SPECIMEN Ordering Facility: [facility] Address: [address] [place] [address] Performed By: #### 5 7021-8 #### [facility] CLIA [id number] [address] [place], [place] [address] [place] [address] [place] RBC (Bld) [#/Vol] 4.86 10*6/uL Normal 3.90-5.20 [facility] Comment on above: Order Comment: Speci men Type: BLOOD SPECIMEN Ordering Facility: [facility] Address: [address] [place] [address] Performed By: #### 5 7021-8 #### [facility] CLIA [id number] [address] [place] [address] [facility] [place] RED CELL MORPH Reviewed: unremarkable Normal [facility] Comment on above: Order Comment: Speci men Type: BLOOD SPECIMEN Ordering Facility: [facility] Address: [address] [place] [address] Performed By: #### 5 7021-8 #### [facility] CLIA [id number] [address] [place] [address] [place] WBC (Bld) [#/Vol] 24.52 10*3/uL High 3.70-11.00 [facility] Comment on above: Order Comment: Speci men Type: BLOOD SPECIMEN Ordering Facility: [facility] Address: [facility] [place] [id number] Performed By: #### 5 7021-8 #### [facility] CLIA [id number] [address] [place] [address] [facility] CNOVon 10-24-2024 CNOV Office Visit ([facility]) JENNA VALADEZ ([id number]) 1970 F Date Time Provider Department 10/24/24 2:45 PM DIOGENES LIM [facility] During your visit today, we recorded the following information about you: Temperature Pulse Respiration Blood pressure 100.7 degrees 132/minute 18/minute 110/70 Weight 58 kg Diogenes Lim MD 10/24/2024 3:05 PM Signed Patient presents with: Abdominal Pain: bloating, weakness, fatigue and fever x 2 days HPI: Feeling wiped and and abdominal pain for 2 days. Positive symptoms: Fever, Malaise, Fatigue, no eating or BM for 2 days, bloating, light-headedness, abdominal pain, hurts to walk Negative symptoms: Cough, Sore throat, Nasal Congestion, Rhinorrhea, Vomiting, Diarrhea, blood in stool, PAST MEDICAL HISTORY Diagnosis Date Anxiety Depression Emphysema lung (HCC) 08/14/2016 Hypokalemia Hypomagnesemia Low HDL (under 40) PAST SURGICAL HISTORY Procedure Laterality Date COLONOSCOPY 08/19/2016 EGD 08/19/2016 MEDICATIONS: Current Outpatient Medications Medication Sig albuterol HFA (PROVENTIL HFA, VENTOLIN HFA) 90 mcg/actuation inhaler Inhale 2 Puffs as instructed every 4 hours as needed for wheezing/shortness of breath. No current facility-administere d medications for this visit. ALLERGIES: ALLERGIES Allergen Reactions Prozac [Fluoxetine * Other: See Comments headaches Wellbutrin [Bupropi* Other: See Comments Increased anxiety and stomach ache VITALS: BP 110/70 Pulse (!) 132 Temp (!) 38.2 ?C (100.7 ?F) Resp 18 Wt 58 kg (127 lb 13.9 oz) LMP (LMP Unknown) SpO2 98% BMI 25.10 kg/m? 09/03/2023 11/16/2023 01/12/2024 03/14/2024 03/28/2024 08/26/2024 10/24/2024 Vitals Pulse 104 91 100 97 88 96 132 ! PHYSICAL EXAM: GEN: mildly ill appearing, sitting holding abdomen HEENT: PERRL, EOMI, conjunctiva clear Throat: moist mucous membranes, Neck: supple, no thyromegaly, no lymphadenopathy HEART: fast rate, regular rhythm, no murmurs LUNGS: clear to auscultation, no wheezes or crackles, no increased WOB ABD: voluntary guarding, non-distended, general discomfort, no masses ASSESSMENT/PLAN: 1. Generalized abdominal pain - ICD9: 789.07, ICD10: R10.84 (primary diagnosis) 2. Fever, unspecified fever cause - ICD9: 780.60, ICD10: R50.9 3. Tachycardia - ICD9: 785.0, ICD10: R00.0 Fever, abdominal pain, lightheadedness, tachycardia, anorexia, and lack of bowel movements are all flags for a potential serious abdominal issue. She has no URI or vomiting/diarrhea but would like to be checked for the flu. - INFLUENZA AANDB MOLECULAR (POC) - negative Encouraged to seek further evaluation in the ED. She is reluctant to go because she has no insurance but agrees to go to [place] or [place] which are [facility] facilities. Diogenes Lim MD Allergies As of Date: 10/24/2024 Noted Allergy Reaction PROZAC (FLUOXETINE HCL) 06/11/2015 14 - Other: See Comments Comments: headaches WELLBUTRIN (BUPROPION HCL) 12/19/2019 14 - Other: See Comments Comments: Increased anxiety and stomach ache Date Reviewed: 10/24/2024 Reviewed by: Ben Adams RN - Fully Assessed Reason for Visit: Abdominal Pain [1] Cmt: bloating, weakness, fatigue and fever x 2 days Primary Visit Diagnosis:Generalize d abdominal pain [R10.84] Other Visit Diagnoses:Fever, unspecified fever cause [R50.9] Tachycardia [R00.0] Order(s):INFLUENZA AANDB MOLECULAR (POC) [[id number]] Order #: [id number] #:[id number] Prescriptions as of 10/24/2024 - albuterol HFA (PROVENTIL HFA, VENTOLIN HFA) 90 mcg/actuation inhaler Inhale 2 Puffs as instructed every 4 hours as needed for wheezing/shortness of breath. 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 Normal [facility] CT ABD/PEL W IVCONon 025 CT ABD/PEL W IVCON * * *Final Report* * * DATE OF EXAM: Oct 24 2024 5:17PM [facility] 0530 - CT ABD/PEL W IVCON / PROCEDURE REASON: lower abdominal pain and distension, nausea * * * * Physician Interpretation * * * * EXAMINATION: CT ABDOMEN AND PELVIS WITH IV CONTRAST CLINICAL HISTORY: Lower abdominal pain TECHNIQUE: CT of the abdomen and pelvis was performed using standard technique, scanning from just above the dome of the diaphragm to the symphysis pubis. MQ: CTAP_3 Contrast: IV: 100 ml of Omnipaque 350 CT Radiation dose: Integrated Dose-length product (DLP) for this visit = 341.82 mGy*cm. CT Dose Reduction Employed: Automated exposure control(AEC) and iterative recon COMPARISON: None. RESULT: Lung bases: The visualized lung bases are clear. Liver: Normal liver parenchyma is noted. No focal hepatic mass is seen. The portal vein and hepatic veins are within normal limits. Bile ducts: No intra or extrahepatic bile duct dilatation is noted. Gallbladder: The gallbladder is unremarkable without transmural inflammation seen to suggest acute cholecystitis. Spleen: The spleen is of normal size and enhancement Pancreas: The pancreatic parenchyma is of normal enhancement without a discrete mass identified. No peripancreatic fluid or fat stranding is appreciated. The pancreatic duct is of normal caliber. Adrenal glands :The adrenal glands are normal in morphology. No discrete nodule is identified. Kidneys: Normal enhancement of the renal parenchyma is noted. No solid mass is identified. No discrete stone is identified. There is no evidence of hydronephrosis or hydroureter. Abdominal aorta: The abdominal aorta is of normal caliber without evidence of dissection. A normal-appearing aortic bifurcation is present. Lymphadenopathy: There is no intra-abdominal, retroperitoneal, or inguinal lymphadenopathy. Ascites: No fluid collection is seen in the abdomen or pelvis. Urinary bladder: The urinary bladder is unremarkable without an intraluminal filling defect. No perivesical fat stranding is appreciated. Appendix: There is a 7.9 mm stone at the base of the appendix. The distal appendix is distended measuring up to 13 mm in diameter with periappendiceal fat stranding. Findings are consistent with acute appendicitis. Bowel: There are several fluid-filled and mildly thick-walled loops of distal ileum/terminal ileum, likely reactive. Osseous structures: No osteolytic or osteoblastic bone lesion is identified. No acute osseous abnormality is seen. IMPRESSION: 1. Acute appendicitis without ignacio perforation. COMMUNICATION: Communicated with the ordering clinician on 10/24/2024 at 5:50 PM via verbal communication. Process Improvement Manager: PSCB Transcribe Date/Time: Oct 24 2024 5:47P Dictated by : JAGDEEP CHEUNG MD This examination was interpreted and the report reviewed and electronically signed by: JAGDEEP CHEUNG MD on Oct 24 2024 5:52PM EST [id number] Normal [facility] Comprehensive metabolic 2000 panelon 10-24-2024 Albumin [Mass/Vol] 4.5 g/dL Normal 3.9-4.9 [facility] Comment on above: Order Comment: Speci men Type: STOOL SPECIMEN Ordering Facility: [facility] Address: [address] [place] [address] Performed By: #### C JEAN CLAUDE, 49282-6 #### [facility] CLIA [id number] [address] ALP [Catalytic activity/Vol] 100 U/L Normal 34-123 [facility] Comment on above: Order Comment: Speci men Type: STOOL SPECIMEN Ordering Facility: [facility] Address: [address] [place] [address] Performed By: #### Nayeli SILVERIO, 28749-2 #### [facility] CLIA [id number] [address] ALT With P-5'-P [Catalytic activity/Vol] 12 U/L Normal 7-38 [facility] Comment on above: Order Comment: Speci men Type: STOOL SPECIMEN Ordering Facility: [facility] Address: [address] [place] [address] Performed By: #### Nayeli SILVERIO, 13683-0 #### [facility] CLIA [id number] [address] Anion gap [Moles/Vol] 16 mmol/L High 8-15 [facility] Comment on above: Order Comment: Speci men Type: STOOL SPECIMEN Ordering Facility: [facility] Address: [address] [place], [place] [address] Performed By: #### Nayeli SILVERIO, [id number] #### [facility] CLIA [id number] [address] OF [facility] AST With P-5'-P [Catalytic activity/Vol] 20 U/L Normal 13-35 [facility] Comment on above: Order Comment: Speci men Type: STOOL SPECIMEN Ordering Facility: [facility] Address: [facility] [place] [address] Performed By: #### Nayeli SILVERIO, 33660-1 #### [facility] CLIA [id number] [address] Bilirubin [Mass/Vol] 0.6 mg/dL Normal 0.2-1.3 [facility] Comment on above: Order Comment: Speci men Type: STOOL SPECIMEN Ordering Facility: [facility] Address: [address] [place] [address] Performed By: #### Nayeli SILVERIO, 04485-9 #### [facility] CLIA [id number] [address] Calcium [Mass/Vol] 9.9 mg/dL Normal 8.5-10.2 [facility] Comment on above: Order Comment: Speci men Type: STOOL SPECIMEN Ordering Facility: [facility] Address: [address] [place] [address] Performed By: #### Nayeli SILVERIO, 12207-9 #### [facility] CLIA [id number] [address] [place] Chloride [Moles/Vol] 95 mmol/L Low 98-107 [facility] Comment on above: Order Comment: Speci men Type: STOOL SPECIMEN Ordering Facility: [facility] Address: [address] [place] [address] Performed By: #### Nayeli SILVERIO, 59117-5 #### [facility] CLIA [id number] [address] STATES OF [facility] CO2 [Moles/Vol] 24 mmol/L Normal 22-30 [facility] Comment on above: Order Comment: Speci men Type: STOOL SPECIMEN Ordering Facility: [facility] Address: [address] [place] [address] Performed By: #### Nayeli SILVERIO, 59266-7 #### [facility] CLIA [id number] [address] [place] [facility] Creatinine [Mass/Vol] 1.07 mg/dL High 0.58-0.96 [facility] Comment on above: Order Comment: Speci men Type: STOOL SPECIMEN Ordering Facility: [facility] Address: [address] [place] [address] Performed By: #### Nayeli SILVERIO, 76711-1 #### [facility] CLIA [id number] [address] Creatinine and Glomerular filtration rate.predicted panel (S/P/Bld) 61 mL/min/1.73m??? Normal >=60 [facility] Comment on above: Order Comment: Speci men Type: STOOL SPECIMEN Ordering Facility: [facility] Address: [address] [place] [address] Result Comment: Zara mated Glomerular Filtration Rate (eGFR) is calculated using the 2020 CKD-EPI creatinine equation. This equation utilizes serum creatinine, sex, and age as parameters. The creatinine assay has traceable calibration to isotope dilution-mass spectrometry. Refer to KDIGO guidelines for clinical interpretation. In patients with unstable renal function, e.g. those with acute kidney injury, the eGFR may not accurately reflect actual GFR. Performed By: #### Nayeli SILVERIO, 88416-8 #### [facility] CLIA [id number] [address] OF [facility] Glucose [Mass/Vol] 129 mg/dL High 74-99 [facility] Comment on above: Order Comment: Speci men Type: STOOL SPECIMEN Ordering Facility: [facility] Address: [address] [place] [address] Result Comment: The [place] Diabetes Association (ADA) provides guidance for cutoff values for fasting glucose and random glucose. The ADA defines fasting as no caloric intake for at least 8 hours. Fasting plasma glucose results between 100 to 125 mg/dL indicate increased risk for diabetes (prediabetes). Fasting plasma glucose results greater than or equal to 126 mg/dL meet the criteria for diagnosis of diabetes. In the absence of unequivocal hyperglycemia, results should be confirmed by repeat testing. In a patient with classic symptoms of hyperglycemia or hyperglycemic crisis, random plasma glucose results greater than or equal to 200 mg/dL meet the criteria for diagnosis of diabetes. Reference: Standards of Medical Care in Diabetes 2016, [place] Diabetes Association. Diabetes Care. 2016.39(Suppl 1). Performed By: #### Nayeli SILVERIO, 29607-9 #### [facility] CLIA [id number] 1 [place] [address] [place] Potassium [Moles/Vol] 3.2 mmol/L Low 3.7-5.1 [facility] Comment on above: Order Comment: Speci men Type: STOOL SPECIMEN Ordering Facility: [facility] Address: [address] [place] [address] Performed By: #### Nayeli SILVERIO, 59723-0 #### [facility] CLIA [id number] 1 [place] [address] [place] Protein [Mass/Vol] 7.8 g/dL Normal 6.3-8.0 [facility] Comment on above: Order Comment: Speci men Type: STOOL SPECIMEN Ordering Facility: [facility] Address: [address] [place] [address] Performed By: #### Nayeli SILVERIO, 57861-3 #### [facility] CLIA [id number] [address] [place] [address] [place] Sodium [Moles/Vol] 135 mmol/L Low 136-144 [facility] Comment on above: Order Comment: Speci men Type: STOOL SPECIMEN Ordering Facility: [facility] Address: [address] [place] [address] Performed By: #### Nayeli SILVERIO, 31783-0 #### [facility] CLIA [id number] [address] [place] Urea nitrogen [Mass/Vol] 10 mg/dL Normal 7- [facility] Comment on above: Order Comment: Speci men Type: STOOL SPECIMEN Ordering Facility: [facility] Address: [address] [place] [address] Performed By: #### C JEAN CLAUDE, 84603-6 #### [facility] CLIA [id number] [address] [place] ECG COMPLETEon 10-24-2024 ECG COMPLETE Ventricular Rate : 117 BPM Atrial Rate : 117 BPM P-R Interval : 128 ms QRS Duration : 74 ms Q-T Interval : 328 ms QTC Calculation(Bazett) : 457 ms Calculated P [place] : 71 degrees Calculated R [place] : 14 degrees Calculated T [place] : 59 degrees SINUS TACHYCARDIA OTHERWISE NORMAL ECG NO PREVIOUS ECGS AVAILABLE Confirmed by MD SOTOMAYOR VINAYAK ([id number]) on 10/25/2024 11:10:39 AM NAME : JENNA VALADEZ PID : [id number] : 1970 Gender : Female Race : ORD : [id number] Procedure Date : Oct 24 2024 16:10:17 Edit Date : Oct 25 2024 11:10:42 Diagnosis: SINUS TACHYCARDIA OTHERWISE NORMAL ECG NO PREVIOUS ECGS AVAILABLE Confirmed by MD SOTOMAYOR VINAYAK ([id number]) on 10/25/2024 11:10:39 AM Test Reason : Tachycardia Location : 191 : [facility] ED Overread By : MD SOTOMAYOR VINAYAK Edited By : MD SOTOMAYOR VINAYAK Referred By : , Acquired by : HUNTER KEEN [facility] ED NOTEon 10-24-2024 ED NOTE HNO ID: [id number] Author: DEV VALDIVIA RN Service: Emergency Medicine Author Type: Registered Nurse Type: ED Notes Filed: 10/24/2024 22:05 Note Text: Patient stable on leaving ED with transport. [facility] ED NOTE HNO ID: [id number] Author: DEV VALDIVIA RN Service: Emergency Medicine Author Type: Registered Nurse Type: ED Notes Filed: 10/24/2024 21:13 Note Text: Attempted to call report. Nurse busy and will call back. Patient states anxiety medication has helped with anxiety and pain. Does not want pain medication at this time. VSS. Call light in reach [facility] ED NOTE HNO ID: [id number] Author: DEV VALDIVIA RN Service: Emergency Medicine Author Type: Registered Nurse Type: ED Notes Filed: 10/24/2024 20:53 Note Text: Patient reports anxiety resolved. Pain persists. Asking about having oral fluids, ice chips. Educated none at this time d/t npo status, surgical procedure and that she is getting IVF for hydration. Denies further needs, questions, comment, concerns at this time. Call light in reach/ [facility] ED NOTE HNO ID: [id number] Author: DEV VALDIVIA RN Service: Emergency Medicine Author Type: Registered Nurse Type: ED Notes Filed: 10/24/2024 20:09 Note Text: [facility] [place]/ [facility] [address] [facility] ED NOTE HNO ID: [id number] Author: DEV VALDIVIA RN Service: Emergency Medicine Author Type: Registered Nurse Type: ED Notes Filed: 10/24/2024 19:21 Note Text: Patient alert and awake on returning to bed from BR. Continues to states 7/10 pain and continues anxiety. Emotional support offered. Physician updated. Call light in reach. [facility] ED NOTE HNO ID: [id number] Author: BEN ADAMS RN Service: ? Author Type: Registered Nurse Type: ED Notes Filed: 10/24/2024 19:10 Note Text: Report to manisha valdivia rn [facility] ED NOTE HNO ID: [id number] Author: BEN ADAMS RN Service: ? Author Type: Registered Nurse Type: ED Notes Filed: 10/24/2024 15:56 Note Text: Dr carbajal at bedside for exam [facility] ED NOTE HNO ID: [id number] Author: BEN ADAMS RN Service: ? Author Type: Registered Nurse Type: ED Notes Filed: 10/24/2024 15:53 Note Text: Pt c/o lower abd pain and nausea for 2 days. Pt had a fever earlier and was seen at [facility]. Pt was told to come to ed. Normal [facility] ED PROV NOTEon 10-24-2024 ED PROV NOTE HNO ID: [id number] Author: NELY ARTHUR DO Service: Emergency Medicine Author Type: Physician Type: ED Provider Notes Filed: 10/24/2024 23:38 Note Text: ED Provider Note Patient Name: Jenna Valadez : 1970 SERVICE DATE: 10/24/24 History Patient presents with: Abdominal Pain Nausea Jenna Valadez is a 54 year old female who presents with Abdominal Pain and Nausea. - Symptoms began a couple days ago. - Severity: moderate - Timing: constant - Symptoms are associated with constipation, lower abdominal pain. - Symptoms are not associated with chest pain, chills, diarrhea, fever, shortness of breath, vomiting, dysuria, flank pain, hematuria. Patient presents with lower abdominal pain and distention, and nausea. She states symptoms started a couple days ago. She states that she has not had any vomiting or bowel movement since symptoms started. She states she is not passing gas. She states she is urinating. She has had decreased p.o. intake. She has had no prior abdominal surgeries. She denies any flank or back pain. No dysuria or hematuria. She does report she has had a fever of 101. No cough. No chest pain or shortness of breath. She was seen in urgent care and sent to the ED for evaluation. PAST MEDICAL HISTORY Diagnosis Date Anxiety Depression Emphysema lung (HCC) 08/14/2016 Hypokalemia Hypomagnesemia Low HDL (under 40) PAST SURGICAL HISTORY Procedure Laterality Date COLONOSCOPY 08/19/2016 EGD 08/19/2016 FAMILY HISTORY Problem Relation Age of Onset Breast Cancer Mother Heart Maternal Grandmother Diabetes Maternal Grandmother Arthritis Maternal Uncle Breast Cancer Sister Breast Cancer Paternal Aunt Social History Tobacco Use Smoking status: Every Day Current packs/day: 1.00 Average packs/day: 1 pack/day for 25.0 years (25.0 ttl pk-yrs) Types: Cigarettes Smokeless tobacco: Never Vaping Use Vaping status: Never Used Substance and Sexual Activity Alcohol use: No Drug use: Not Currently Types: Marijuana Sexual activity: Yes ALLERGIES Allergen Reactions Prozac [Fluoxetine * Other: See Comments headaches Wellbutrin [Bupropi* Other: See Comments Increased anxiety and stomach ache Review of Systems Constitutional: Positive for fever. Respiratory: Negative for cough and shortness of breath. Cardiovascular: Negative for chest pain. Gastrointestinal: Positive for abdominal distention, abdominal pain, constipation and nausea. Negative for diarrhea and vomiting. Genitourinary: Negative for dysuria, flank pain and hematuria. Musculoskeletal: Negative for back pain. Skin: Negative for rash. Neurological: Negative for weakness and numbness. Psychiatric/Behavior al: Negative for agitation and confusion. Physical Exam Vitals [10/24/24 1550] BP Pulse Temp Temp src Resp SpO2 Weight Height 101/69 (!) 126 36.5 ?C (97.7 ?F) Temporal Art 18 98 % 57.6 kg (127 lb) -- Physical Exam Vitals and nursing note reviewed. Constitutional: Appearance: She is not toxic-appearing or diaphoretic. HENT: Head: Normocephalic and atraumatic. Mouth/Throat: Mouth: Mucous membranes are moist. Eyes: Conjunctiva/sclera: Conjunctivae normal. Cardiovascular: Rate and Rhythm: Regular rhythm. Tachycardia present. Pulses: Normal pulses. Pulmonary: Effort: Pulmonary effort is normal. Breath sounds: Normal breath sounds. Abdominal: General: There is distension (Lower abdomen/suprapubic). Palpations: Abdomen is soft. Tenderness: There is abdominal tenderness in the right lower quadrant, suprapubic area and left lower quadrant. There is rebound. There is no right CVA tenderness or left CVA tenderness. Positive signs include McBurney's sign. Skin: General: Skin is warm and dry. Capillary Refill: Capillary refill takes less than 2 seconds. Neurological: General: No focal deficit present. Mental Status: She is alert and oriented to person, place, and time. Psychiatric: Mood and Affect: Mood normal. Behavior: Behavior normal. Diagnostic Testing ED Labs Ordered and Reviewed COMPREHENSIVE METABOLIC PANEL - Abnormal; Notable for the following components: Result Value Ref Range Glucose 129 (*) 74 - 99 mg/dL Creatinine 1.07 (*) 0.58 - 0.96 mg/dL Sodium 135 (*) 136 - 144 mmol/L Potassium 3.2 (*) 3.7 - 5.1 mmol/L Chloride 95 (*) 98 - 107 mmol/L Anion Gap 16 (*) 8 - 15 mmol/L All other components within normal limits LIPASE - Abnormal; Notable for the following components: Lipase 14 (*) 16 - 61 U/L All other components within normal limits COMPLETE BLOOD COUNT AND DIFFERENTIAL - Abnormal; Notable for the following components: WBC 24.52 (*) 3.70 - 11.00 k/uL MPV 8.9 (*) 9.0 - 12.7 fL Abs Neut (Segs + Bands) 20.84 (*) 1.45 - 7.50 k/uL Abs [place] 1.96 (*) <0.87 k/uL All other components within normal limits Narrative: This is an appended report. These results have been appende (more content not included)... Normal [facility] HIGH SENSITIVITY TROPONIN To n 10-24-2024 Troponin T.cardiac High sensitivity method [Mass/Vol] 10 ng/L Normal <12 [facility] Comment on above: Order Comment: Darrel parson Type: BLOOD SPECIMEN Ordering Facility: [facility] Address: [address] [place] [address] Performed By: #### H STNT #### [facility] CLIA [id number] [address] [place] [address] [place] INFLUENZA A&B MOLECULAR (POC )on 10-24-2024 Flu A (POCT) Negative Negative [facility] Flu B (POCT) Negative Negative [facility] Procedural Control Valid [facility] Location:[address], [address] [place] [address] POINT OF CARE [facility] Lipase SerPl-cCncon 10-24-19 25 Lipase [Catalytic activity/Vol] 14 U/L Low 16-61 [facility] Comment on above: Order Comment: Darrel parson Type: STOOL SPECIMEN Ordering Facility: [facility] Address: [address] [place] [address] Performed By: #### C DEIA, 79122-7 #### [facility] CLIA [id number] [address] [place] [address] [place] SEPSIS LACTATE W/ REFLEX (IN ITIAL)on 10-24-2024 Lactate [Moles/Vol] 1.9 mmol/L Normal <=2.0 [facility] Comment on above: Order Comment: Speci men Type: BLOOD SPECIMEN Ordering Facility: [facility] Address: [address] [place] [address] Performed By: #### S LACTR #### [facility] CLIA [id number] [address] [place] [address] Urinalysis complete panel (U )on 10-24-2024 Bacteria LM.HPF (Urine sed) [#/Area] Many Abnormal None Seen [facility] Comment on above: Order Comment: Speci men Type: STOOL SPECIMEN Ordering Facility: [facility] Address: [address] [place] [address] Performed By: #### Nayeli SILVERIO, 47184-9 #### [facility] CLIA [id number] [address] [place] [address] Bilirubin Ql (U) Negative Normal Negative [facility] Comment on above: Order Comment: Speci men Type: STOOL SPECIMEN Ordering Facility: [facility] Address: [address] [place] [address] Performed By: #### Nayeli SILVERIO, 39264-7 #### [facility] CLIA [id number] [address] [place] [address] Clarity (Unsp spec) Cloudy Abnormal Clear [facility] Comment on above: Order Comment: Speci men Type: STOOL SPECIMEN Ordering Facility: [facility] Address: [address] [place] [address] Performed By: #### Nayeli SILVERIO, 88638-9 #### [facility] CLIA [id number] [address] Color (U) Yellow Normal Yellow [facility] Comment on above: Order Comment: Speci men Type: STOOL SPECIMEN Ordering Facility: [facility] Address: [address] [place] [address] Performed By: #### Nayeli SILVERIO, 33057-2 #### [facility] CLIA [id number] [address] [place] [address] [place] Epithelial cells LM.HPF (Urine sed) [#/Area] Many Normal [facility] Comment on above: Order Comment: Speci men Type: STOOL SPECIMEN Ordering Facility: [facility] Address: [facility] [place] [address] Performed By: #### Nayeli SILVERIO, 36194-2 #### [facility] CLIA [id number] [address] Glucose Test strip (U) [Mass/Vol] Negative Normal Negative [facility] Comment on above: Order Comment: Speci men Type: STOOL SPECIMEN Ordering Facility: [facility] Address: [facility] [place] [address] Performed By: #### Nayeli SILVERIO, 49825-1 #### [facility] CLIA [id number] [address] Hemoglobin Ql (U) Trace Abnormal Negative [facility] Comment on above: Order Comment: Speci men Type: STOOL SPECIMEN Ordering Facility: [facility] Address: [address] [place] [address] Performed By: #### Nayeli SILVERIO, 05852-7 #### [facility] CLIA [id number] [address] Ketones Ql (U) Negative Normal Negative [facility] Comment on above: Order Comment: Speci men Type: STOOL SPECIMEN Ordering Facility: [facility] Address: [facility] [place] [address] Performed By: #### Nayeli SILVERIO, 86142-8 #### [facility] CLIA [id number] [address] Leukocyte esterase Test strip Ql (U) 2+ Abnormal Negative [facility] Comment on above: Order Comment: Speci men Type: STOOL SPECIMEN Ordering Facility: [facility] Address: [facility] [place] [address] Performed By: #### Nayeli SILVERIO, 64310-4 #### [facility] CLIA [id number] [address] [place] Nitrite Ql (U) Negative Normal Negative [facility] Comment on above: Order Comment: Speci men Type: STOOL SPECIMEN Ordering Facility: [facility] Address: [address] [place] [address] Performed By: #### Nayeli SILVERIO, 81005-6 #### [facility] CLIA [id number] [address] pH (U) 6.0 [pH] Normal 5.0-8.0 [facility] Comment on above: Order Comment: Speci men Type: STOOL SPECIMEN Ordering Facility: [facility] Address: [address] [place] [address] Performed By: #### Nayeli SILVERIO, 02282-7 #### [facility] CLIA [id number] [address] Protein (U) [Mass/Vol] Negative Normal Negative [facility] Comment on above: Order Comment: Speci men Type: STOOL SPECIMEN Ordering Facility: [facility] Address: [address] [place] [address] Performed By: #### Nayeli SILVERIO, 01596-6 #### [facility] CLIA [id number] [address] RBC LM.HPF (Urine sed) [#/Area] 0-3 /HPF Normal 0-3 /HPF [facility] Comment on above: Order Comment: Speci men Type: STOOL SPECIMEN Ordering Facility: [facility] Address: [address] [place] [address] Performed By: #### Nayeli SILVERIO, 61667-9 #### [facility] CLIA [id number] [address] Specific gravity (U) [Rel density] 1.015 Normal 1.005-1.030 [facility] Comment on above: Order Comment: Speci men Type: STOOL SPECIMEN Ordering Facility: [facility] Address: [facility] [place] [address] Performed By: #### Nayeli SILVERIO, 16082-1 #### [facility] CLIA [id number] [address] Urobilinogen Ql (U) 0.2 EU/dL Normal 0.2-1.0 EU/dL [facility] Comment on above: Order Comment: Speci men Type: STOOL SPECIMEN Ordering Facility: [facility] Address: [address] [place] [address] Performed By: #### Nayeli SILVERIO, 50655-2 #### [facility] CLIA [id number] [address] WBC LM.HPF (Urine sed) [#/Area] /[HPF] Abnormal 0-5 /HPF [facility] Comment on above: Order Comment: Speci men Type: STOOL SPECIMEN Ordering Facility: [facility] Address: [address] [place] [address] Performed By: #### Nayeli SILVERIO, 63306-6 #### [facility] CLIA [id number] [address] CNOVon 08-26-2024 CNOV Office Visit (WSTR) JENNA VALADEZ ([id number]) 1970 F Date Time Provider Department 08/26/24 2:45 PM ANMOL BEAULIEU [facility] During your visit today, we recorded the following information about you: Temperature Pulse Respiration Blood pressure 98.8 degrees 96/minute 22/minute 112/75 Weight 59 kg Anmol Beaulieu, [employer] 08/26/2024 2:38 PM Signed Subjective HPI Nontoxic-appearing female presents urgent care chief complaint cough chest congestion fatigue. States initially did have body aches chills loose stools. The symptoms have improved. Cough is became productive. Does have some wheezing. OTC medications with no success. Sick contacts at work. Negative COVID home 19 test. Denies any chest pain hemoptysis or pleuritic pain. Past medical history prescription medications allergies reviewed. .Patient presents with: Cough: Chest congestion, head congestion, lightheaded, diarrhea, wheeze x 1 week PAST MEDICAL HISTORY Diagnosis Date Anxiety Depression Emphysema lung (HCC) 08/14/2016 Hypokalemia Hypomagnesemia Low HDL (under 40) PAST SURGICAL HISTORY Procedure Laterality Date COLONOSCOPY 08/19/2016 EGD 08/19/2016 ALLERGIES Prozac [Fluoxetine Hcl] and Wellbutrin [Bupropion Hcl] MEDICATIONS albuterol HFA (PROVENTIL HFA, VENTOLIN HFA) 90 mcg/actuation inhaler Inhale 2 Puffs as instructed every 4 hours as needed for wheezing/shortness of breath. doxycycline (VIBRA-TABS) 100 mg tablet Take 1 tablet by mouth two times a day for 7 days. predniSONE (DELTASONE) 10 mg tablet Take 4 tablets by mouth once daily for 5 days. FAMILY HISTORY Problem Relation Age of Onset Breast Cancer Mother Heart Maternal Grandmother Diabetes Maternal Grandmother Arthritis Maternal Uncle Breast Cancer Sister Breast Cancer Paternal Aunt Social History Tobacco Use Smoking status: Every Day Current packs/day: 1.00 Average packs/day: 1 pack/day for 25.0 years (25.0 ttl pk-yrs) Types: Cigarettes Smokeless tobacco: Never Vaping Use Vaping status: Never Used Substance Use Topics Alcohol use: No Drug use: Not Currently Types: Marijuana BP 112/75 Pulse 96 Temp 37.1 ?C (98.8 ?F) Resp 22 Wt 59 kg (130 lb 1.1 oz) LMP (LMP Unknown) SpO2 98% BMI 25.54 kg/m? Review of Systems Constitutional: Positive for malaise/fatigue. Negative for chills and fever. HENT: Positive for congestion and sore throat. Negative for ear discharge, ear pain and sinus pain. Eyes: Negative for blurred vision, pain, discharge and redness. Respiratory: Positive for cough, sputum production and wheezing. Negative for hemoptysis, shortness of breath and stridor. Cardiovascular: Negative for chest pain. Gastrointestinal: Negative for abdominal pain, diarrhea, nausea and vomiting. Musculoskeletal: Positive for myalgias. Skin: Negative for itching and rash. Neurological: Negative for dizziness and headaches. Objective Physical Exam Constitutional: General: She is not in acute distress. Appearance: She is not diaphoretic. HENT: Head: Normocephalic. Jaw: No trismus, tenderness, swelling or pain on movement. Nose: No congestion. Mouth/Throat: Mouth: Mucous membranes are moist. Pharynx: Oropharynx is clear. Uvula midline. No pharyngeal swelling, oropharyngeal exudate, posterior oropharyngeal erythema or uvula swelling. Eyes: Conjunctiva/sclera: Conjunctivae normal. Pupils: Pupils are equal, round, and reactive to light. Cardiovascular: Rate and Rhythm: Normal rate and regular rhythm. Heart sounds: Normal heart sounds. Pulmonary: Effort: Pulmonary effort is normal. No tachypnea, accessory muscle usage or respiratory distress. Breath sounds: No stridor. Wheezing present. No rhonchi or rales. Abdominal: General: There is no distension. Palpations: Abdomen is soft. Tenderness: There is no abdominal tenderness. There is no guarding or rebound. Musculoskeletal: Cervical back: Normal range of motion and neck supple. No edema, erythema, rigidity or tenderness. No pain with movement. Normal range of motion. Lymphadenopathy: Cervical: No cervical adenopathy. Skin: General: Skin is warm and dry. Neurological: Mental Status: She is alert and oriented to person, place, and time. ASSESSMENT/PLAN: 1. Bronchitis - ICD9: 490, ICD10: J40 Bronchitis. Smoker history of lung disease. Placed on doxycycline and prednisone. Patient was educated on supportive therapies. Patient will follow up with primary care provider as needed. Patient was instructed to immediately proceed to emergency room for any new, worsening, or symptoms lasting longer than anticipated. The patient's clinical presentation is otherwise unremarkable at this time. Based on exam and clinical finding, the patient is stable for discharge. Plan of care was discussed with patient. Patient verbalizes underst (more content not included)... Normal [facility] CNOVon 03-28-2024 CNOV Office Visit (FAMPWS) JENNA VALADEZ ([id number]) 1970 F Date Time Provider Department 03/28/24 10:20 AM QIAN SOMERS During your visit today, we recorded the following information about you: Temperature Pulse Respiration Blood pressure 99 degrees 88/minute 16/minute 100/62 Weight 55.8 kg Qian Somers PA-C 03/28/2024 11:43 AM Signed Chief Complaint Patient presents with: Diarrhea HPI Jenna Valadez is a 53 year old female who presents here today for Above Complaints.. Patient states that since she started lexapro she has had increased IBS like issues and diarrhea. She states she has had mild IBS issues for years but with lexapro has been worse. Diarrhea multiple times a day associated with cramping. Past medical history, appointments, medications, allergies reviewed. Previous Medical History PAST MEDICAL HISTORY Diagnosis Date Anxiety Depression Emphysema lung (HCC) 08/14/2016 Hypokalemia Hypomagnesemia Low HDL (under 40) Previous Surgical History PAST SURGICAL HISTORY Procedure Laterality Date COLONOSCOPY 08/19/2016 EGD 08/19/2016 Family History FAMILY HISTORY Problem Relation Age of Onset Breast Cancer Mother Heart Maternal Grandmother Diabetes Maternal Grandmother Arthritis Maternal Uncle Breast Cancer Sister Breast Cancer Paternal Aunt Patient Allergies ALLERGIES Allergen Reactions Prozac [Fluoxetine * Other: See Comments headaches Wellbutrin [Bupropi* Other: See Comments Increased anxiety and stomach ache Current Medications Current Outpatient Medications on File Prior to Visit Medication Sig meloxicam (MOBIC) 15 mg tablet Take 1 tablet by mouth once daily. With food. albuterol HFA (PROVENTIL HFA, VENTOLIN HFA) 90 mcg/actuation inhaler Inhale 2 Puffs as instructed every 4 hours as needed for wheezing/shortness of breath. fluticasone (FLONASE) 50 mcg/actuation nasal spray Use 2 Sprays in each nostril once daily. Rinse mouth after use. cholecalciferol, Vitamin D3, (VITAMIN D3) 1,250 mcg (50,000 unit) cap capsule Take 1 capsule by mouth one time a week. potassium chloride ER (KLOR-CON M20) 20 mEq tablet Take 1 tablet by mouth once daily. No current facility-administere d medications on file prior to visit. Social History Social History Tobacco Use Smoking status: Every Day Packs/day: 1.00 Years: 25.00 Additional pack years: 0.00 Total pack years: 25.00 Types: Cigarettes Smokeless tobacco: Never Vaping Use Vaping Use: Never used Substance Use Topics Alcohol use: No Drug use: Not Currently Types: Marijuana Review of Symptoms REVIEW OF SYSTEMS See hpi EXAM: BP 100/62 (BP Site: Left Arm, BP Position: Sitting, BP Cuff Size: Large Adult) Pulse 88 Temp 37.2 ?C (99 ?F) Resp 16 Wt 55.8 kg (123 lb) LMP (LMP Unknown) SpO2 97% BMI 24.15 kg/m? General Appearance: Well appearing, alert, in no acute distress, well-hydrated, well nourished.. Abdomen: Normal abdominal exam, Abdomen soft, non-tender. Bowel sounds normal. No masses, organomegaly. Health Maintenance List Hepatitis B Vaccine(1 of 3 - 19+ 3-dose series) Never done Alpha-1 Antitrypsin Deficiency Screening Never done Mammogram Screening due on 08/04/2017 Shingrix Vaccine(1 of 2) Never done Covid-19 Vaccine() due on 05/01/2023 Hepatitis C Screening due on 01/11/2025 HIV Screening due on 01/11/2025 Spirometry due on 03/14/2025 Lung Cancer Screening due on 03/14/2025 Cervical Cancer Screening due on 03/14/2025 Influenza Vaccine(1) due on 05/01/2024 Annual PCP Team Chronic Disease Visit due on 03/14/2025 DTaP,Tdap,Td Vaccine(2 - Td or Tdap) due on 04/15/2026 Colorectal Cancer Screening due on 08/19/2026 Diabetes Screening due on 01/11/2027 Lipid Screening due on 01/11/2029 Pneumococcal Vaccine(3 of 3 - PPSV23 or PCV20) due on 2033 HPV Vaccine Aged Out Data reviewed ASSESSMENT/PLAN: 1. Diarrhea, unspecified type - ICD9: 787.91, ICD10: R19.7 Will see if stopping lexapro helps. If no improvement, will consider testing. Patient to keep follow up with psych Qian Somers PA-C Referring Provider: QIAN SOMERS [[id number]] Allergies As of Date: 03/28/2024 Noted Allergy Reaction PROZAC (FLUOXETINE HCL) 06/11/2015 14 - Other: See Comments Comments: headaches WELLBUTRIN (BUPROPION HCL) 12/19/2019 14 - Other: See Comments Comments: Increased anxiety and stomach ache Date Reviewed: 03/28/2024 Reviewed by: Ashly Gerber LPN - Fully Assessed Reason for Visit: Diarrhea [35] Primary Visit Diagnosis:Diarrhea, unspecified type [R19.7] Prescriptions as of 03/28/2024 - meloxicam (MOBIC) 15 mg tablet Take 1 tablet by mouth once daily. With food. - cholecalciferol, Vitamin D3, (VITAMIN D3) 1,250 mcg (50,000 unit) cap capsule Take 1 capsule by mouth one time a week. - albute (more content not included)... Normal [facility] Urinalysis complete panel (U )on 01-13-2024 Bacteria LM.HPF (Urine sed) [#/Area] Negative Negative /HPF [facility] Bilirubin Ql (U) Negative Negative [facility] Clarity (Unsp spec) Clear Clear [facility] Color (U) Yellow Yellow [facility] Epithelial cells LM.HPF (Urine sed) [#/Area] None Seen /HPF [facility] Glucose Test strip (U) [Mass/Vol] Negative Negative [facility] Hemoglobin Ql (U) Negative Negative [facility] Hyaline casts (Urine sed) [#/Area] 0 /[LPF] 0 /LPF [facility] Interpretation and review of laboratory results Abnormal [facility] Ketones Ql (U) Negative Negative [facility] Leukocyte esterase Test strip Ql (U) Trace Abnormal Negative [facility] Nitrite Ql (U) Negative Negative [facility] pH (U) 7.0 [pH] NINF - 8.5 [facility] Protein (U) [Mass/Vol] Negative Negative [facility] RBC LM.HPF (Urine sed) [#/Area] 0-2 /HPF 0-2 /HPF [facility] Specific gravity (U) [Rel density] 1.009 1.005 - 1.030 [facility] Urobilinogen Ql (U) 0.2 EU/dL 0.2-1.0 EU/dL Cl [facility] WBC LM.HPF (Urine sed) [#/Area] 0-5 /HPF 0-5 /HPF [facility] This test was developed and its performance characteristics determined by [facility]'s Jj [facility] [place] ([facility]). It has not been cleared or approved by the FDA. [facility] is regulated under CLIA as qualified to perform high-complexity testing. This test is used for clinical purposes. It should not be regarded as investigational or for research. [facility] 25-hydroxyvitamin D3 [Mass/V ol]on 01-12-2024 Interpretation and review of laboratory results Abnormal [facility] CBC W Auto Differential pane l (Bld)on 01-12-2024 Basophils (Bld) [#/Vol] 0.11 10*3/uL High [facility] Basophils/100 WBC (Bld) 1.5 % C [facility] Differential cell count method Nom (Bld) Auto [facility] Eosinophils (Bld) [#/Vol] 0.17 10*3/uL [facility] Eosinophils/100 WBC (Bld) 2.3 % [facility] Erythrocyte distribution width (RBC) [Ratio] 13.9 % 11.5 - 15.0 % [facility] Hematocrit (Bld) [Volume fraction] 42.2 % 36.0 - 46.0 % [facility] Hemoglobin (Bld) [Mass/Vol] 14.0 g/dL 11.5 - 15.5 g/dL [facility] Immature granulocytes (Bld) [#/Vol] [facility] Immature granulocytes/100 WBC (Bld) 0.1 % [facility] Interpretation and review of laboratory results Abnormal [facility] Lymphocytes (Bld) [#/Vol] 2.02 10*3/uL [facility] Lymphocytes/100 WBC (Bld) 27.8 % [facility] MCH (RBC) [Entitic mass] 28.7 pg 26. 0 - 34.0 pg [facility] MCHC (RBC) [Mass/Vol] 33.2 g/dL 30.5 - 36.0 g/dL [facility] MCV (RBC) [Entitic vol] 86.7 fL 80.0 - 100.0 fL [facility] Monocytes (Bld) [#/Vol] 0.44 10*3/uL [facility] Monocytes/100 WBC (Bld) 6.1 % C [facility] Neutrophils (Bld) [#/Vol] 4.52 10*3/uL [facility] Neutrophils/100 WBC (Bld) 62.2 % [facility] Nucleated RBC (Bld) [#/Vol] NINF [facility] Nucleated RBC/100 WBC (Bld) [Ratio] 0.0 % /100 WBC [facility] Platelet mean volume (Bld) [Entitic vol] 9.9 fL 9.0 - 12.7 fL [facility] Platelets (Bld) [#/Vol] 346 10*3/uL [facility] RBC (Bld) [#/Vol] 4.87 10*6/uL 3.90 - 5.2 0 m/uL [facility] WBC (Bld) [#/Vol] 7.27 10*3/uL [facility] VITAMIN D 25 HYDROXYon 01-11 25-hydroxyvitamin D3 [Mass/Vol] 21.4 ng/mL Low 31.0 - 80.0 ng/mL [facility] STREP A MOLECULAR (POC)on Procedural Control Valid [facility] Strep A (POCT) Negative Negative [facility] Basic Panelon 11-24-2018 Chloride molar conc 101 mmol/L Normal 98-109 [facility] Comment on above: Result Comment: Test ing performed on an [employer] i-STAT. Performed By: #### L P8 #### [place] [address] CO2 Blood 29 mEq/L Normal 21-32 [facility] Comment on above: Result Comment: JADYN ECTED: Previous result = 101, verified at 11:42 on 11/24/18. Performed By: #### L P8 #### [place] [address] Calcium mass conc 9.4 mg/dL Normal 8.5-10.1 [facility] Comment on above: Performed By: #### L P8 #### [place] [address] Creatinine mass conc 0.70 mg/dL Normal 0.51-0.95 [facility] Comment on above: Performed By: #### L P8 #### [place] [address] Glucose mass conc 92 mg/dL Normal 70-99 [facility] Comment on above: Performed By: #### L P8 #### [facility] [address] [place], [place] [address] Urea nitrogen mass conc 8 mg/dL Normal 7-25 [facility] Comment on above: Performed By: #### L P8 #### [facility] [address] [place], [place] [address] Urea nitrogen/Creatinine mass ratio 11 mg/mg Normal 10-20 [facility] Comment on above: Performed By: #### L P8 #### [facility] [address] [place] [address] Anion gap molar conc 15 mmol/L Normal 8-20 [facility] Comment on above: Performed By: #### L P8 #### [facility] [address] [place] [address] Potassium molar conc 3.0 mmol/L Low 3.5-4.9 [facility] Comment on above: Result Comment: Test ing performed on an [employer] i-STAT. Performed By: #### L P8 #### [facility] [address] [place] [address] Sodium molar conc 142 mmol/L Normal 138-146 [facility] Comment on above: Result Comment: Test ing performed on an [place] i-STAT. Performed By: #### L P8 #### [place] [address] Hemogramon 11-24-2018 Erythrocyte distribution width Ratio (RBC) 12.9 % Normal 11.5-15.9 [facility] Comment on above: Performed By: #### L CBC #### [facility] [address] [place] [address] Hematocrit Volume Fraction (Bld) 38.0 % Normal 37.0-47.0 [facility] Comment on above: Performed By: #### L CBC #### [facility] [address] [place] [address] Hemoglobin mass conc (Bld) 13.2 g/dL Normal 12.0-16.0 [facility] Comment on above: Performed By: #### L CBC #### [facility] [address] [place] [address] MCH Entitic mass (RBC) 29.4 pg Normal 27.0-31.0 [facility] Comment on above: Performed By: #### L CBC #### [facility] [address] [place] [address] MCHC mass conc (RBC) 34.7 % Normal 32.0-36.0 [facility] Comment on above: Performed By: #### L CBC #### [facility] [address] [place] [address] MCV Entitic volume (RBC) 84.6 fL Normal 81.0-99.0 [facility] Comment on above: Performed By: #### L CBC #### [place] [address] Platelet mean volume Entitic volume (Bld) 9.1 fL Normal 7.1-10.5 [facility] Comment on above: Performed By: #### L CBC #### [place] [address] Platelets #/vol (Bld) 333 thou/cmm Normal 150-400 [facility] Comment on above: Performed By: #### L CBC #### [place] [address] RBC #/vol (Bld) 4.49 mil/cmm Normal 4.20-5.40 [facility] Comment on above: Performed By: #### L CBC #### [place] [address] WBC #/vol (Bld) 7.4 thou/cmm Normal 4.8-10.8 [facility] Comment on above: Performed By: #### L CBC #### [place] [address] MDRD eGFRon 11-24-2018 GFR/1.73 sq M predicted among non-blacks MDRD vol rate/area (S/P/Bld) mL/min/{1.73_m2} Normal >60mL/min/1.7 3m2 [facility] Comment on above: Result Comment: If t he patient is , multiply the result by 1.210. Performed By: #### L GFR #### [facility] [address] [place] [address] Macroscopic Urinalysison Appearance Nom (U) CLEAR Normal [facility] Comment on above: Performed By: #### L MACU #### [facility] [address] [place] [address] Bilirubin Urine Negative Normal Negative [facility] Comment on above: Performed By: #### L MACU #### [facility] [address] [place] [address] Color Nom (U) COLORLESS Normal [facility] Comment on above: Performed By: #### L MACU #### [facility] [address] [place] [address] Glucose Ql (U) Negative Normal Negative [facility] Comment on above: Performed By: #### L MACU #### [place] [address] Hemoglobin,Urine Negative Normal Negative [facility] Comment on above: Performed By: #### L MACU #### [place] [address] Ketone Urine Negative Normal Negative [facility] Comment on above: Performed By: #### L MACU #### [place] [address] Leukocytes Esterase Negative Normal Negative [facility] Comment on above: Performed By: #### L MACU #### [place] [address] Nitrites Urine Negative Normal Negative [facility] Comment on above: Performed By: #### L MACU #### [facility] [address] [place] [address] pH (U) 5.5 [pH] Normal 5.0-8.0 [facility] Comment on above: Performed By: #### L MACU #### [place] [address] Protein mass conc (U) Negative Normal Negative [facility] Comment on above: Performed By: #### L MACU #### [facility] [address] [place], [place] [address] Specific [place], Ur 1.015 Normal 1.005-1.030 [facility] Comment on above: Performed By: #### L MACU #### [facility] [address] [place], [place] [address] Urobilinogen,Ur 0.2 EU/dL Normal 0.0-1.0 [facility] Comment on above: Performed By: #### L MACU #### [facility] [address] [place], [place] [address] Vital Signs Date Time Vital Sign Value Performing Clinician Facility 03-21-2025 03:48-0400 Body height 154.[address] Anmol Chen MD Work Phone: 1(294)432-352529 [place] [address] 03-21-2025 03:48-0400 Body mass index (BMI) [Ratio] 24.9 kg/m2 Dr. Anmol Chen MD Work Phone: 4(396)853-624067 [address] 03-21-2025 03:48-0400 Body temperature 97.8 [degF] Dr. Anmol Chen MD Work Phone: 6(413)495-770729 [place] [address] 03-21-2025 03:48-0400 Body weight 59.[address] Anmol Chen MD Work Phone: 2(847)386-039829 [place] [address] 03-21-2025 03:48-0400 Diastolic blood pressure 84 mm[Hg] Dr. Anmol Chen MD Work Phone: 1(341)521-334427 [place] [address] 03-21-2025 03:48-0400 Heart rate 92 /min Dr. Anmol Chen MD Work Phone: 4(663)712-403827 [place] [address] 03-21-2025 03:48-0400 Respiratory rate 16 /min Dr. Anmol Chen MD Work Phone: 4(232)305-792529 [place] [address] 03-21-2025 03:48-0400 SaO2% (BldA) [Mass fraction] 100 % Dr. Anmol Chen MD Work Phone: 7(677)317-502029 [place] [address] 03-21-2025 03:48-0400 Systolic blood pressure 151 mm[Hg] Dr. Anmol Chen MD Work Phone: [facility] 03-10-2025 10:52-0400 Body mass index (BMI) [Ratio] 24.98 kg/m2 Nely Schmidt MEDICAL ADMINISTRATOR.[employer]ING PRESS OPERATOR Work Phone: [facility] 03-10-2025 10:52-0400 Body temperature 98.1 [degF] Nely Schmidt MEDICAL ADMINISTRATOR.[employer]ING PRESS OPERATOR Work Phone: [facility] 03-10-2025 10:52-0400 Body weight 60.8 kg Nely Schmidt MEDICAL ADMINISTRATOR.[employer]ING PRESS OPERATOR Work Phone: [facility] 03-10-2025 10:52-0400 Diastolic blood pressure 88 mm[Hg] Nely Schmidt MEDICAL ADMINISTRATOR.[employer]ING PRESS OPERATOR Work Phone: [facility] 03-10-2025 10:52-0400 Heart rate 99 /min Nely Schmidt MEDICAL ADMINISTRATOR.[employer]ING PRESS OPERATOR Work Phone: [facility] 03-10-2025 10:52-0400 Respiratory rate 18 /min Nely Schmidt MEDICAL ADMINISTRATOR.[employer]ING PRESS OPERATOR Work Phone: [facility] 03-10-2025 10:52-0400 SaO2% (BldA) [Mass fraction] 98 % Nely Schmidt MEDICAL ADMINISTRATOR.[employer]ING PRESS OPERATOR Work Phone: [facility] 03-10-2025 10:52-0400 Systolic blood pressure 146 mm[Hg] Nely Schmidt MEDICAL ADMINISTRATOR.CURING PRESS OPERATOR Work Phone: [facility] 01-15-2025 11:47-0400 Body temperature 97.9 [degF] Dr. Anmol Chen MD Work Phone: [facility] 01-15-2025 11:47-0400 Diastolic blood pressure 60 mm[Hg] Dr. Anmol Chen MD Work Phone: [facility] 01-15-2025 11:47-0400 Heart rate 74 /min Dr. Anmol Chen MD Work Phone: 1(965)062-075929 [place] [address] 01-15-2025 11:47-0400 Respiratory rate 16 /min Dr. Anmol Chen MD Work Phone: 2(896)742-627829 [place] [address] 01-15-2025 11:47-0400 SaO2% (BldA) [Mass fraction] 100 % Dr. Anmol Chen MD Work Phone: 5(343)957-058229 [place] [address] 01-15-2025 11:47-0400 Systolic blood pressure 101 mm[Hg] Dr. Anmol Chen MD Work Phone: 2(342)557-499529 [place] [address] 01-15-2025 08:32-0400 Body height 154.[address] Anmol Chen MD Work Phone: 4(775)826-048829 [place] [address] 01-15-2025 08:32-0400 Body mass index (BMI) [Ratio] 24.8 kg/m2 Dr. Anmol Chen MD Work Phone: 3(074)324-762529 [place] [address] 01-15-2025 08:32-0400 Body weight 59.[address] Anmol Chen MD Work Phone: 1(602)618-553029 [place] [address] 01-04-2025 07:14-0400 Body temperature 98 [degF] Dr. Anmol Chen MD Work Phone: 3(758)660-699729 [place] [address] 01-04-2025 07:14-0400 Diastolic blood pressure 78 mm[Hg] Dr. Anmol Chen MD Work Phone: 3(758)731-727729 [place] [address] 01-04-2025 07:14-0400 Heart rate 69 /min Dr. Anmol Chen MD Work Phone: 5(230)435-117929 [place] [address] 01-04-2025 07:14-0400 Respiratory rate 16 /min Dr. Anmol Chen MD Work Phone: 0(089)863-573129 [place] [address] 01-04-2025 07:14-0400 SaO2% (BldA) [Mass fraction] 99 % Dr. Anmol Chen MD Work Phone: 9(249)044-354929 [place] [address] 01-04-2025 07:14-0400 Systolic blood pressure 122 mm[Hg] Dr. Anmol Chen MD Work Phone: [facility] 01-04-2025 04:35-0400 Body height 154.[address] Anmol Chen MD Work Phone: [facility] 01-04-2025 04:35-0400 Body mass index (BMI) [Ratio] 25.9 kg/m2 Dr. Anmol Chen MD Work Phone: [facility] 01-04-2025 04:35-0400 Body weight 62.[address] Anmol Chen MD Work Phone: [facility] 12-01-2024 07:45-0400 Body mass index (BMI) [Ratio] 23.01 kg/m2 Elena Isbell MEDICAL ADMINISTRATOR.CURING PRESS OPERATOR Work Phone: [facility] 12-01-2024 07:45-0400 Body weight 56 kg Elena Isbell MEDICAL ADMINISTRATOR.CURING PRESS OPERATOR Work Phone: [facility] 12-01-2024 07:45-0400 Diastolic blood pressure 69 mm[Hg] Elena Isbell MEDICAL ADMINISTRATOR.CURING PRESS OPERATOR Work Phone: [facility] 12-01-2024 07:45-0400 Heart rate 123 /min Elena Isbell MEDICAL ADMINISTRATOR.CURING PRESS OPERATOR Work Phone: [facility] 12-01-2024 07:45-0400 Systolic blood pressure 102 mm[Hg] Elena Isbell MEDICAL ADMINISTRATOR.CURING PRESS OPERATOR Work Phone: [facility] 11-26-2024 10:40-0400 Body temperature 97.5 [degF] Mohsen Villegas RN Work Phone: [facility] 11-26-2024 10:40-0400 Diastolic blood pressure 80 mm[Hg] Mohsen Villegas RN Work Phone: [facility] 11-26-2024 10:40-0400 Heart rate 96 /min Mohsen Villegas RN Work Phone: [facility] 11-26-2024 10:40-0400 Respiratory rate 18 /min Mohsen Villegas RN Work Phone: [facility] 11-26-2024 10:40-0400 SaO2% (BldA) [Mass fraction] 98 % Mohsen Villegas RN Work Phone: [facility] 11-26-2024 10:40-0400 Systolic blood pressure 106 mm[Hg] Mohsen Villegas RN Work Phone: [facility] 11-24-2024 17:42-0400 Body mass index (BMI) [Ratio] 24.24 kg/m2 Elena Isbell MEDICAL ADMINISTRATOR.CURING PRESS OPERATOR Work Phone: [facility] 11-24-2024 17:42-0400 Body weight 59 kg Elena Isbell APRN.CURING PRESS OPERATOR Work Phone: [facility] 11-24-2024 17:42-0400 Diastolic blood pressure 78 mm[Hg] Elena Isbell APRN.CURING PRESS OPERATOR Work Phone: [facility] 11-24-2024 17:42-0400 Heart rate 105 /min Elena Isbell APRN.[employer]ING PRESS OPERATOR Work Phone: [facility] 11-24-2024 17:42-0400 Systolic blood pressure 120 mm[Hg] Elena Isbell APRN.CURING PRESS OPERATOR Work Phone: [facility] 11-21-2024 09:25-0400 Body temperature 97 [degF] Bertagibson West RN Work Phone: [facility] 11-21-2024 09:25-0400 Diastolic blood pressure 64 mm[Hg] Berta West RN Work Phone: [facility] 11-21-2024 09:25-0400 Heart rate 88 /min Berta Wset RN Work Phone: [facility] 11-21-2024 09:25-0400 Respiratory rate 16 /min Berta West RN Work Phone: [facility] 11-21-2024 09:25-0400 SaO2% (BldA) [Mass fraction] 99 % Berta West RN Work Phone: [facility] 11-21-2024 09:25-0400 Systolic blood pressure 102 mm[Hg] Berta West RN Work Phone: [facility] 11-17-2024 12:07-0400 Body mass index (BMI) [Ratio] 23.86 kg/m2 Kushal Bosch MD Work Phone: [facility] 11-17-2024 12:07-0400 Body temperature 98.29 [degF] Kushal Bosch MD Work Phone: [facility] 11-17-2024 12:07-0400 Body weight 58.06 kg Kushal Bosch MD Work Phone: [facility] 11-17-2024 12:07-0400 Diastolic blood pressure 64 mm[Hg] Kushal Bosch MD Work Phone: [facility] 11-17-2024 12:07-0400 Heart rate 119 /min Kushal Bosch MD Work Phone: [facility] 11-17-2024 12:07-0400 Respiratory rate 16 /min Kushal Bosch MD Work Phone: [facility] 11-17-2024 12:07-0400 SaO2% (BldA) [Mass fraction] 99 % Kushal Bosch MD Work Phone: [facility] 11-17-2024 12:07-0400 Systolic blood pressure 100 mm[Hg] Kushal Bosch MD Work Phone: [facility] 11-16-2024 10:25-0400 Body temperature 98.8 [degF] Berta West RN Work Phone: [facility] 11-16-2024 10:25-0400 Diastolic blood pressure 76 mm[Hg] Berta West RN Work Phone: [facility] 11-16-2024 10:25-0400 Heart rate 96 /min Berta West RN Work Phone: [facility] 11-16-2024 10:25-0400 Respiratory rate 16 /min Berta West RN Work Phone: [facility] 11-16-2024 10:25-0400 SaO2% (BldA) [Mass fraction] 99 % Berta West RN Work Phone: [facility] 11-16-2024 10:25-0400 Systolic blood pressure 118 mm[Hg] Berta West RN Work Phone: [facility] 11-15-2024 14:15-0400 Diastolic blood pressure 64 mm[Hg] [facility] Work Phone: [facility] 11-15-2024 14:15-0400 Heart rate 80 /min [facility] Work Phone: [facility] 11-15-2024 14:15-0400 Respiratory rate 18 /min [facility] Work Phone: [facility] 11-15-2024 14:15-0400 SaO2% (BldA) [Mass fraction] 100 % [facility] Work Phone: [facility] 11-15-2024 14:15-0400 Systolic blood pressure 139 mm[Hg] [facility] Work Phone: [facility] 11-15-2024 12:30-0400 Body temperature 98.1 [degF] [facility] Work Phone: [facility] 11-07-2024 11:39-0400 Body temperature 97.39 [degF] Alexandra Ayoub RN Work Phone: [facility] 11-07-2024 11:39-0400 Diastolic blood pressure 72 mm[Hg] Alexandra Ayoub RN Work Phone: [facility] 11-07-2024 11:39-0400 Heart rate 107 /min Alexandra Ayoub RN Work Phone: [facility] 11-07-2024 11:39-0400 Respiratory rate 18 /min Alexandra Ayoub RN Work Phone: [facility] 11-07-2024 11:39-0400 SaO2% (BldA) [Mass fraction] 99 % Alexandra Ayoub RN Work Phone: [facility] 11-07-2024 11:39-0400 Systolic blood pressure 118 mm[Hg] Alexandra Ayoub RN Work Phone: [facility] 11-06-2024 12:24-0400 Body temperature 98.71 [degF] Isamar Chang RN Work Phone: [facility] 11-06-2024 12:24-0400 Diastolic blood pressure 70 mm[Hg] Isamar Chang RN Work Phone: [facility] 11-06-2024 12:24-0400 Heart rate 107 /min Isamar Chang RN Work Phone: [facility] 11-06-2024 12:24-0400 Respiratory rate 18 /min Isamar Chang RN Work Phone: [facility] 11-06-2024 12:24-0400 SaO2% (BldA) [Mass fraction] 99 % Isamar Chang RN Work Phone: [facility] 11-06-2024 12:24-0400 Systolic blood pressure 118 mm[Hg] Isamar Chang RN Work Phone: [facility] 11-05-2024 12:17-0500 Body temperature 99 [degF] Dyan Olmos RN Work Phone: [facility] 11-05-2024 12:17-0500 Diastolic blood pressure 68 mm[Hg] Dyan Olmos RN Work Phone: [facility] 11-05-2024 12:17-0500 Heart rate 102 /min Dyan Olmos RN Work Phone: [facility] 11-05-2024 12:17-0500 Respiratory rate 18 /min Dyan Olmos RN Work Phone: [facility] 11-05-2024 12:17-0500 SaO2% (BldA) [Mass fraction] 99 % Dyan Olmos RN Work Phone: [facility] 11-05-2024 12:17-0500 Systolic blood pressure 100 mm[Hg] Dyan Olmos RN Work Phone: [facility] 11-04-2024 14:31-0500 Body mass index (BMI) [Ratio] 23.42 kg/m2 Elena Isbell MEDICAL ADMINISTRATOR.CURING PRESS OPERATOR Work Phone: [facility] 11-04-2024 14:31-0500 Body weight 57 kg Elena Isbell MEDICAL ADMINISTRATOR.CURING PRESS OPERATOR Work Phone: [facility] 11-04-2024 14:31-0500 Diastolic blood pressure 83 mm[Hg] Elena Isbell MEDICAL ADMINISTRATOR.CURING PRESS OPERATOR Work Phone: [facility] 11-04-2024 14:31-0500 Heart rate 106 /min Elena Isbell MEDICAL ADMINISTRATOR.CURING PRESS OPERATOR Work Phone: [facility] 11-04-2024 14:31-0500 Systolic blood pressure 124 mm[Hg] Elena Isbell MEDICAL ADMINISTRATOR.CURING PRESS OPERATOR Work Phone: [facility] 11-04-2024 12:44-0500 Body temperature 99.5 [degF] Shruthi Vásquez RN Work Phone: [facility] 11-04-2024 12:44-0500 Diastolic blood pressure 66 mm[Hg] Shruthi Vásquez RN Work Phone: [facility] 11-04-2024 12:44-0500 Heart rate 102 /min Shruthi Vásquez RN Work Phone: [facility] 11-04-2024 12:44-0500 Respiratory rate 18 /min Shruthi Vásquez RN Work Phone: [facility] 11-04-2024 12:44-0500 SaO2% (BldA) [Mass fraction] 97 % Shruthi Vásquez RN Work Phone: [facility] 11-04-2024 12:44-0500 Systolic blood pressure 116 mm[Hg] Shruthi Vásquez RN Work Phone: [facility] 11-03-2024 11:30-0500 Body temperature 98.71 [degF] Jame Hess RN Work Phone: [facility] 11-03-2024 11:30-0500 Diastolic blood pressure 56 mm[Hg] Jame Hess RN Work Phone: [facility] 11-03-2024 11:30-0500 Heart rate 102 /min Jame Hess RN Work Phone: [facility] 11-03-2024 11:30-0500 Respiratory rate 16 /min Jame Hess RN Work Phone: [facility] 11-03-2024 11:30-0500 SaO2% (BldA) [Mass fraction] 98 % Jame Hess RN Work Phone: [facility] 11-03-2024 11:30-0500 Systolic blood pressure 110 mm[Hg] Jame Hess RN Work Phone: [facility] 10-24-2024 14:21-0500 Body mass index (BMI) [Ratio] 25.1 kg/m2 Diogenes Lim MD Work Phone: [facility] 10-24-2024 14:21-0500 Body temperature 100.71 [degF] Diogenes Lim MD Work Phone: [facility] 10-24-2024 14:21-0500 Body weight 58 kg Diogenes Lim MD Work Phone: [facility] 10-24-2024 14:21-0500 Diastolic blood pressure 70 mm[Hg] Diogenes Lim MD Work Phone: [facility] 10-24-2024 14:21-0500 Heart rate 132 /min Diogenes Lim MD Work Phone: [facility] 10-24-2024 14:21-0500 Respiratory rate 18 /min Diogenes Lim MD Work Phone: [facility] 10-24-2024 14:21-0500 SaO2% (BldA) [Mass fraction] 98 % Diogenes Lim MD Work Phone: [facility] 10-24-2024 14:21-0500 Systolic blood pressure 110 mm[Hg] Diogenes Lim MD Work Phone: [facility] 08-26-2024 14:27-0500 Body mass index (BMI) [Ratio] 25.54 kg/m2 Anmolsteve Beaulieu MEDICAL ADMINISTRATOR.CURING PRESS OPERATOR Work Phone: [facility] 08-26-2024 14:27-0500 Body temperature 98.8 [degF] Anmolsteve Simpsondorothy MEDICAL ADMINISTRATOR.CURING PRESS OPERATOR Work Phone: [facility] 08-26-2024 14:27-0500 Body weight 59 kg Anmol Brittnee MEDICAL ADMINISTRATOR.CURING PRESS OPERATOR Work Phone: [facility] 08-26-2024 14:27-0500 Diastolic blood pressure 75 mm[Hg] Anmolsteve Simpsondorothy MEDICAL ADMINISTRATOR.CURING PRESS OPERATOR Work Phone: [facility] 08-26-2024 14:27-0500 Heart rate 96 /min Anmol Brittnee MEDICAL ADMINISTRATOR.CURING PRESS OPERATOR Work Phone: [facility] 08-26-2024 14:27-0500 Respiratory rate 22 /min Anmol Tatianadorothy MEDICAL ADMINISTRATOR.CURING PRESS OPERATOR Work Phone: [facility] 08-26-2024 14:27-0500 SaO2% (BldA) [Mass fraction] 98 % Anmolsteve Simpsondorothy MEDICAL ADMINISTRATOR.CURING PRESS OPERATOR Work Phone: [facility] 08-26-2024 14:27-0500 Systolic blood pressure 112 mm[Hg] Anmol Beaulieu MEDICAL ADMINISTRATOR.CURING PRESS OPERATOR Work Phone: [facility] 03-28-2024 10:06-0400 Body mass index (BMI) [Ratio] 24.15 kg/m2 Qian Somers PA-C Work Phone: [facility] 03-28-2024 10:06-0400 Body temperature 99 [degF] Qian Somers PA-C Work Phone: [facility] 03-28-2024 10:06-0400 Body weight 55.79 kg Qian Somers PA-C Work Phone: [facility] 03-28-2024 10:06-0400 Diastolic blood pressure 62 mm[Hg] Qian Somers PA-C Work Phone: [facility] 03-28-2024 10:06-0400 Heart rate 88 /min Qian Somers PA-C Work Phone: [facility] 03-28-2024 10:06-0400 Respiratory rate 16 /min Qian Somers PA-C Work Phone: [facility] 03-28-2024 10:06-0400 SaO2% (BldA) [Mass fraction] 97 % Qian Somers PA-C Work Phone: [facility] 03-28-2024 10:06-0400 Systolic blood pressure 100 mm[Hg] Qian Somers PA-C Work Phone: [facility] 03-14-2024 10:01-0400 Body height 152 cm Qian Somers PA-C Work Phone: [facility] 03-14-2024 10:01-0400 Body mass index (BMI) [Ratio] 24.15 kg/m2 Qian Somers PA-C Work Phone: [facility] 03-14-2024 10:01-0400 Body temperature 97.81 [degF] Qian Somers PA-C Work Phone: [facility] 03-14-2024 10:01-0400 Body weight 55.79 kg Qian Somers PA-C Work Phone: [facility] 03-14-2024 10:01-0400 Diastolic blood pressure 78 mm[Hg] Qian Somers PA-C Work Phone: [facility] 03-14-2024 10:01-0400 Heart rate 97 /min Qian Somers PA-C Work Phone: [facility] 03-14-2024 10:01-0400 Respiratory rate 16 /min Qian Somers PA-C Work Phone: [facility] 03-14-2024 10:01-0400 SaO2% (BldA) [Mass fraction] 99 % Qian Somers PA-C Work Phone: [facility] 03-14-2024 10:01-0400 Systolic blood pressure 102 mm[Hg] Qian Somers PA-C Work Phone: [facility] 01-12-2024 11:29-0400 Body mass index (BMI) [Ratio] 23.43 kg/m2 Qian Somers PA-C Work Phone: [facility] 01-12-2024 11:29-0400 Body temperature 97.81 [degF] Qian Somers PA-C Work Phone: [facility] 01-12-2024 11:29-0400 Body weight 56.25 kg Qian Somers PA-C Work Phone: [facility] 01-12-2024 11:29-0400 Diastolic blood pressure 77 mm[Hg] Qian Somers PA-C Work Phone: [facility] 01-12-2024 11:29-0400 Heart rate 100 /min Qian Somers PA-C Work Phone: [facility] 01-12-2024 11:29-0400 Respiratory rate 16 /min Qian Somers PA-C Work Phone: [facility] 01-12-2024 11:29-0400 SaO2% (BldA) [Mass fraction] 97 % Qian Somers PA-C Work Phone: [facility] 01-12-2024 11:29-0400 Systolic blood pressure 115 mm[Hg] Qian Somers PA-C Work Phone: [facility] 11-16-2023 14:10-0400 Body temperature 98.1 [degF] Marcus Montes De Oca APRN.CURING PRESS OPERATOR Work Phone: [facility] 11-16-2023 14:10-0400 Body weight 58.9 kg Marcus Montes De Oca APRN.CURING PRESS OPERATOR Work Phone: [facility] 11-16-2023 14:10-0400 Diastolic blood pressure 82 mm[Hg] Marcus Montes De Oca MEDICAL ADMINISTRATOR.CURING PRESS OPERATOR Work Phone: [facility] 11-16-2023 14:10-0400 Heart rate 91 /min Marcus Montes De Oca MEDICAL ADMINISTRATOR.CURING PRESS OPERATOR Work Phone: [facility] 11-16-2023 14:10-0400 Respiratory rate 18 /min Marcus Montes De Oca MEDICAL ADMINISTRATOR.CURING PRESS OPERATOR Work Phone: [facility] 11-16-2023 14:10-0400 SaO2% (BldA) [Mass fraction] 99 % Marcus Montes De Oca MEDICAL ADMINISTRATOR.CURING PRESS OPERATOR Work Phone: [facility] 11-16-2023 14:10-0400 Systolic blood pressure 128 mm[Hg] Marcus Montes De Oca MEDICAL ADMINISTRATOR.CURING PRESS OPERATOR Work Phone: [facility] 03-26-2023 08:20-0400 Body temperature 98.6 [degF] Lizbeth Lee APRN.CURING PRESS OPERATOR Work Phone: [facility] 03-26-2023 08:20-0400 Body weight 56.7 kg Lizbeth Lee APRN.CURING PRESS OPERATOR Work Phone: [facility] 03-26-2023 08:20-0400 Diastolic blood pressure 66 mm[Hg] Lizbeth Lee APRN.CURING PRESS OPERATOR Work Phone: [facility] 03-26-2023 08:20-0400 Heart rate 93 /min Lizbeth Lee APRN.CURING PRESS OPERATOR Work Phone: [facility] 03-26-2023 08:20-0400 Respiratory rate 16 /min Lizbeth Lee APRN.CURING PRESS OPERATOR Work Phone: [facility] 03-26-2023 08:20-0400 SaO2% (BldA) [Mass fraction] 96 % Lizbeth Lee APRN.CURING PRESS OPERATOR Work Phone: [facility] 03-26-2023 08:20-0400 Systolic blood pressure 108 mm[Hg] Lizbeth Lee MEDICAL ADMINISTRATOR.CURING PRESS OPERATOR Work Phone: [facility] 01-01-2023 17:56-0400 Body temperature 97.9 [degF] Nely Schmidt MEDICAL ADMINISTRATOR.CURING PRESS OPERATOR Work Phone: [facility] 01-01-2023 17:56-0400 Body weight 57.97 kg Nely Schmidt MEDICAL ADMINISTRATOR.CURING PRESS OPERATOR Work Phone: [facility] 01-01-2023 17:56-0400 Diastolic blood pressure 88 mm[Hg] Nely Schmidt MEDICAL ADMINISTRATOR.CURING PRESS OPERATOR Work Phone: [facility] 01-01-2023 17:56-0400 Heart rate 95 /min Nely Schmidt MEDICAL ADMINISTRATOR.CURING PRESS OPERATOR Work Phone: [facility] 01-01-2023 17:56-0400 Respiratory rate 21 /min Nely Schmidt MEDICAL ADMINISTRATOR.CURING PRESS OPERATOR Work Phone: [facility] 01-01-2023 17:56-0400 SaO2% (BldA) [Mass fraction] 99 % Nely Schmidt MEDICAL ADMINISTRATOR.CURING PRESS OPERATOR Work Phone: [facility] 01-01-2023 17:56-0400 Systolic blood pressure 148 mm[Hg] Nely Schmidt MEDICAL ADMINISTRATOR.CURING PRESS OPERATOR Work Phone: [facility] 12-21-2022 12:40-0400 Body temperature 98.71 [degF] Krislyn Aberegg PA Work Phone: [facility] 12-21-2022 12:40-0400 Body weight 58.42 kg Krislyn Aberegg PA Work Phone: [facility] 12-21-2022 12:40-0400 Diastolic blood pressure 88 mm[Hg] Krislyn Aberegg PA Work Phone: [facility] 12-21-2022 12:40-0400 Heart rate 110 /min Krislyn Aberegg PA Work Phone: [facility] 12-21-2022 12:40-0400 Respiratory rate 21 /min Krislyn Aberegg PA Work Phone: [facility] 12-21-2022 12:40-0400 SaO2% (BldA) [Mass fraction] 99 % Kym Mcrae PA Work Phone: [facility] 12-21-2022 12:40-0400 Systolic blood pressure 150 mm[Hg] Kym Mcrae PA Work Phone: [facility] 03-29-2022 09:17-0400 Body temperature 98.2 [degF] Diogenes Lim MD Work Phone: [facility] 03-29-2022 09:17-0400 Body weight 54.8 kg Diogenes Lim MD Work Phone: [facility] 03-29-2022 09:17-0400 Diastolic blood pressure 72 mm[Hg] Diogenes Lim MD Work Phone: [facility] 03-29-2022 09:17-0400 Heart rate 106 /min Diogenes Lim MD Work Phone: [facility] 03-29-2022 09:17-0400 Respiratory rate 20 /min Diogenes Lim MD Work Phone: [facility] 03-29-2022 09:17-0400 SaO2% (BldA) [Mass fraction] 98 % Diogenes Lim MD Work Phone: [facility] 03-29-2022 09:17-0400 Systolic blood pressure 120 mm[Hg] Diogenes Lim MD Work Phone: [facility] 02-05-2022 07:56-0400 Body temperature 98.01 [degF] Sun Kodi MEDICAL ADMINISTRATOR.CURING PRESS OPERATOR Work Phone: [facility] 02-05-2022 07:56-0400 Body weight 54.07 kg Sun Kodi MEDICAL ADMINISTRATOR.CURING PRESS OPERATOR Work Phone: [facility] 02-05-2022 07:56-0400 Diastolic blood pressure 72 mm[Hg] Sun Kodi MEDICAL ADMINISTRATOR.CURING PRESS OPERATOR Work Phone: [facility] 02-05-2022 07:56-0400 Heart rate 91 /min Sun Kodi MEDICAL ADMINISTRATOR.CURING PRESS OPERATOR Work Phone: [facility] 02-05-2022 07:56-0400 Respiratory rate 20 /min Sun Kodi MEDICAL ADMINISTRATOR.CURING PRESS OPERATOR Work Phone: [facility] 02-05-2022 07:56-0400 SaO2% (BldA) [Mass fraction] 99 % Sun Kodi MEDICAL ADMINISTRATOR.CURING PRESS OPERATOR Work Phone: [facility] 02-05-2022 07:56-0400 Systolic blood pressure 118 mm[Hg] Sun Kodi MEDICAL ADMINISTRATOR.CURING PRESS OPERATOR Work Phone: [facility] 01-24-2022 09:54-0400 Body temperature 97.3 [degF] Qian Somers PA-C Work Phone: [facility] 01-24-2022 09:54-0400 Body weight 54.43 kg Qian Somers PA-C Work Phone: [facility] 01-24-2022 09:54-0400 Diastolic blood pressure 70 mm[Hg] Qian Somers PA-C Work Phone: [facility] 01-24-2022 09:54-0400 Heart rate 84 /min Qian Somers PA-C Work Phone: [facility] 01-24-2022 09:54-0400 Respiratory rate 16 /min Qian Somers PA-C Work Phone: [facility] 01-24-2022 09:54-0400 Systolic blood pressure 102 mm[Hg] Qian Somers PA-C Work Phone: [facility] Encounters Encounter Date Encounter Type Care Provider Facility Start: 03-21-2025 End: 03-21-2025 Emergency department patient visit Dr. Anmol Chen MD Work Phone: -Emergency Department Work Phone: Start: 03-16-2025 End: 03-16-2025 Telephone encounter Anmol Chen MD Work Phone: [facility] Comment on above: Patient Question Start: 03-10-2025 End: 03-10-2025 Patient encounter procedure Nely Schmidt MEDICAL ADMINISTRATOR.CURING PRESS OPERATOR Work Phone: [facility] [place] Comment on above: Pain, dental (Primar y Dx); Dental decay Start: 03-10-2025 End: 03-10-2025 ambulatory ANMOL CHEN Facility:[facility] Start: 03-06-2025 End: 03-06-2025 Telephone encounter Elena Isbell MEDICAL ADMINISTRATOR.CURING PRESS OPERATOR Work Phone: [facility] [place] Comment on above: Patient Question Start: 01-30-2025 End: 01-30-2025 Follow-up encounter Elena Isbell MEDICAL ADMINISTRATOR.CURING PRESS OPERATOR Work Phone: [facility] Start: 01-26-2025 End: 01-26-2025 ambulatory Elena Isbell [place] Start: 01-25-2025 End: 01-25-2025 Patient encounter procedure Damian Duffy [facility] Work Phone: Start: 01-25-2025 End: 01-25-[address] Anmol Chen MD Work Phone: [facility] Work Phone: Start: 01-20-2025 End: 01-24-2025 Follow-up encounter Qian Somers PA-C Work Phone: [facility] Start: 01-19-2025 End: 01-19-2025 ambulatory ELENA ISBELL Facility:[facility] Start: 01-16-2025 End: 02-23-2025 Telephone encounter Elena Isbell APRN.CURING PRESS OPERATOR Work Phone: [facility] [place] Comment on above: Patient Question Start: 01-15-2025 End: 01-15-2025 Emergency department patient visit Dr. Anmol Chen MD Work Phone: -Emergency Department Work Phone: Start: 01-04-2025 End: 01-04-2025 Emergency department patient visit Dr. Anmol Chen MD Work Phone: -Emergency Department Work Phone: Start: 12-13-2024 End: 01-13-2025 ambulatory Anmol Chen MD Work Phone: [facility] [place] Start: 12-07-2024 End: 12-07-2024 Patient encounter procedure Damian Quinteros [place] [facility] Work Phone: Start: 12-07-2024 End: 12-07-2024 ambulatory Anmol Chen Facility:[facility] [place] Start: 12-06-2024 End: 12-06-2024 Follow-up encounter Elena Isbell APRN.CURING PRESS OPERATOR Work Phone: [facility] [place] Comment on above: Results Start: 12-02-2024 End: 12-03-2024 ambulatory Elena Isbell APRN.CURING PRESS OPERATOR Work Phone: [facility] [place] Comment on above: Medication Start: 12-01-2024 End: 12-01-2024 Follow-up encounter Elena Isbell APRN.CURING PRESS OPERATOR Work Phone: [facility] [place] Start: 12-01-2024 End: 12-01-2024 Emergency department patient visit ANMOL CHEN Facility:[facility] Start: 12-01-2024 End: 12-01-2024 Patient encounter procedure Elena Isbell APRN.CURING PRESS OPERATOR Work Phone: [facility] Comment on above: Infection in abdomen (HCC) (Primary Dx); Antibiotic long-term use; Postoperative intra-abdominal abscess (HCC) Start: 12-01-2024 End: 12-01-2024 ambulatory ELENA ISBELL Facility:[facility] Start: 11-29-2024 End: 11-30-2024 ambulatory Elena Isbell APRN.CURING PRESS OPERATOR Work Phone: [facility] [place] Comment on above: Hello Start: 11-28-2024 End: 11-28-2024 ambulatory ELENA ISBELL Facility:[facility] Start: 11-27-2024 End: 11-27-2024 Telephone encounter Mohsen Villegas RN Work Phone: [facility] Comment on above: Home Care Start: 11-26-2024 End: 11-26-2024 Home visit Mohsen Villegas RN Work Phone: [facility] Comment on above: SN AGENCY DC W VISIT IV Start: 11-25-2024 End: 11-25-2024 Home visit Meaghan Rooney RN Work Phone: [facility] Comment on above: HH TRIAGE PHONE CALL Start: 11-25-2024 End: 02-15-2025 Telephone encounter Kushal Bosch MD Work Phone: General Surgery Start: 11-24-2024 End: 11-24-2024 Patient encounter procedure Elena Isbell MEDICAL ADMINISTRATOR.CURING PRESS OPERATOR Work Phone: [facility] Comment on above: Decreased libido (Pr imary Dx); Night sweats; KELSI (generalized anxiety disorder); Depression, unspecified depression type Start: 11-24-2024 End: 11-24-2024 ambulatory ELENA ISBELL Facility:[facility] Start: 11-24-2024 End: 11-24-2024 ambulatory KUSHAL BOSCH Facility:[facility] Start: 11-24-2024 End: 11-24-2024 ambulatory KUSHAL BOSCH Facility:[facility] Start: 11-24-2024 End: 11-24-2024 Subsequent hospital visit by physician [facility] ([facility]) Work Phone: Cat Scan Comment on above: Infection in abdomen (HCC) [K65.9] Start: 11-23-2024 End: 11-23-2024 Home visit Yaritza AUSTIN Work Phone: [facility] Comment on above: 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 Start: 11-22-2024 End: 11-22-2024 ambulatory Anmol Chen MD Work Phone: [facility] Comment on above: Depression Start: 11-21-2024 End: 11-21-2024 Home visit Berta West RN Work Phone: [facility] Comment on above: SN IV UP TO 90 MIN Start: 11-17-2024 End: 11-17-2024 ambulatory KUSHAL BOSCH Facility:[facility] Start: 11-17-2024 End: 11-17-2024 ambulatory KUSHAL BOSCH Facility:[facility] Start: 11-17-2024 End: 11-17-2024 Patient encounter procedure Kushal Bosch MD Work Phone: General Surgery Comment on above: Infection in abdomen (HCC) (Primary Dx); Perforated appendicitis Start: 11-16-2024 End: 11-16-2024 Home visit Anmol Chen MD Work Phone: [facility] Comment on above: Postoperative intra- abdominal abscess (HCC) (Primary Dx) SN IV 91-180 MIN Start: 11-15-2024 End: 11-15-2024 Telephone encounter Charleen Casey MD [facility] Department Comment on above: [employer] Transition of Care Start: 11-15-2024 End: 11-15-2024 Orders Only Michelle Purcell [facility] Comment on above: TRIAGE PHONE CALL Start: 11-11-2024 End: 11-16-2024 Home visit Lexii Ontiveros RN Work Phone: [facility] Comment on above: TRIAGE PHONE CALL Refill Request (New OPAT orders (Vancomycin and Meropenem - First Doses)) Start: 11-10-2024 End: 11-10-2024 Follow-up encounter Elena Isbell APRN.CNP Work Phone: [facility] Comment on above: Hypokalemia (Primary Dx) Start: 11-09-2024 End: 11-09-2024 ambulatory ELENA ISBELL Facility:[facility] Start: 11-08-2024 End: 11-09-2024 Telephone encounter Charleen Casey MD [facility] Department Comment on above: Fabric Transition of Care Orders Start: 11-07-2024 End: 11-07-2024 Telephone encounter Yaritza AUSTIN Work Phone: [facility] Comment on above: Home Care Start: 11-07-2024 End: 11-07-2024 Home visit Yaritza AUSTIN Work Phone: [facility] Comment on above: 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 SN IV UP TO 90 MIN Start: 11-06-2024 End: 11-06-2024 Home visit Isamar Chang RN Work Phone: [facility] Comment on above: SN IV UP TO 90 MIN Start: 11-05-2024 End: 11-05-2024 Telephone encounter Dyan Olmos RN Work Phone: [facility] Comment on above: Home Care Start: 11-05-2024 End: 11-05-2024 Home visit Dyan Olmos RN Work Phone: [facility] Comment on above: SN IV UP TO 90 MIN Start: 11-04-2024 End: 11-04-2024 Patient encounter procedure Elena Isbell MEDICAL ADMINISTRATOR.CURING PRESS OPERATOR Work Phone: [facility] Comment on above: Postoperative intra- abdominal abscess (HCC) (Primary Dx); Hypokalemia; Hospital discharge follow-up Start: 11-04-2024 End: 11-04-2024 ambulatory ELENA ISBELL Facility:[facility] Start: 11-04-2024 End: 11-04-2024 Home visit Shruthi Vásquez RN Work Phone: [facility] Comment on above: SN IV UP TO 90 MIN Start: 11-03-2024 End: 11-03-2024 ambulatory Elena Isbell MEDICAL ADMINISTRATOR.CURING PRESS OPERATOR Work Phone: [facility] [place] Start: 11-03-2024 End: 11-03-2024 Telephone encounter Charleen Casey MD [facility] Department Comment on above: Fabric Transition of Care Patient Question Home Care (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 financial 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) Start: 11-03-2024 End: 11-03-2024 Home visit Nely Muir RN [facility] Comment on above: HH TRIAGE PHONE CALL SN SOC IV Start: 11-02-2024 End: 11-02-2024 ambulatory Guillermo Monique MD Work Phone: [facility] Comment on above: CoPat Start Start: 11-02-2024 End: 11-25-2024 Telephone encounter China Mcrae POLINA Work Phone: [facility] Comment on above: Home Care (MD rocky ling) Home Care (Confirmat ion Call ) CoPat Management (FO R IDC USE ONLY) Start: 10-30-2024 End: 11-02-2024 Evaluation and management of inpatient GISSELLE LABOY Facility:[facility] Start: 10-29-2024 Emergency department patient visit ANMOL Muñiz GUSTAVO Facility:[facility] Start: 10-29-2024 End: 10-29-2024 ambulatory Ana Peña RN NURSE POLICE SUPERINTENDENT Comment on above: Patient Update Start: 10-28-2024 End: 10-28-2024 Telephone encounter Charleen Casey MD [facility] Department Comment on above: Fabric Transition of Care Start: 10-24-2024 End: 10-27-2024 Evaluation and management of inpatient KUSHAL BOSCH Facility:[facility] Start: 10-24-2024 Emergency department patient visit ANMOL Antonino GUSTAVO Facility:[facility] Start: 10-24-2024 End: 10-24-2024 ambulatory [facility] Facility:[facility] Start: 10-24-2024 End: 10-24-2024 Office outpatient visit 15 minutes Diogenes Lim MD Work Phone: [facility] Comment on above: Generalized abdomina l pain (Primary Dx); Fever, unspecified fever cause; Tachycardia Start: 08-26-2024 End: 08-26-2024 Office outpatient visit 25 minutes Anmol Beaulieu APRN.CNP Work Phone: [facility] Comment on above: Bronchitis (Primary Dx) Start: 08-26-2024 End: 08-26-2024 ambulatory ANMOL COLLINSEY Facility:[facility] Start: 03-28-2024 End: 03-28-2024 ambulatory QIAN SOMERS Facility:[facility] Start: 03-28-2024 End: 03-28-2024 Patient encounter procedure Qian Somers PA-C Work Phone: [facility] [place] Comment on above: Diarrhea, unspecifie d type (Primary Dx) Start: 03-27-2024 ambulatory Caroline Ragsdale RN NURSE POLICE SUPERINTENDENT Comment on above: Diarrhea Start: 03-15-2024 Telephone encounter Qian Shante COSME-C Work Phone: [facility] [place] Comment on above: Results Start: 03-14-2024 End: 03-14-2024 Patient encounter procedure Qian Yonis COSME-C Work Phone: [facility] [place] Comment on above: Well adult exam (Dulce Maria giovany Dx); Chronic pain of both knees; Hyperlipidemia, mixed; Smoker; PTSD (post-traumatic stress disorder); KELSI (generalized anxiety disorder); Vitamin D deficiency Start: 03-14-2024 End: 03-14-2024 Patient encounter status Qian Yonis COSME-Nayeli Work Phone: [facility] Work Phone: Start: 02-08-2024 Telephone encounter Qian Shante cohen PA-C Work Phone: [facility] [place] Comment on above: Appointment Start: 01-13-2024 ambulatory Anmol denise MD Work Phone: [facility] [place] Start: 01-13-2024 Telephone encounter Qian Shante COSME-C Work Phone: [facility] [place] Comment on above: Results Start: 01-12-2024 End: 01-12-2024 Patient encounter procedure Qian Yonis COSME-C Work Phone: [facility] [place] Comment on above: Fatigue, unspecified type (Primary Dx); Hypokalemia; Encounter for lipid screening for cardiovascular disease; Screening for diabetes mellitus; Anxiety neurosis; Mood disorder (HCC); Vitamin D deficiency Start: 01-08-2024 End: 01-08-2024 Patient encounter procedure Marcus Montes De Oca APRN.CURING PRESS OPERATOR Work Phone: [facility] Comment on above: Near syncope (Primar y Dx) Start: 11-16-2023 End: 11-16-2023 Patient encounter procedure Marcus Montes De Oca APRN.CURING PRESS OPERATOR Work Phone: [facility] Comment on above: Sinobronchitis (Prim lake Dx) Start: 10-07-2023 Chart abstracting Anmol miles MD Work Phone: [facility] [place] Comment on above: Outside [id number] Ordered Start: 07-14-2023 Refill Anmol denise MD Work Phone: [facility] [place] Comment on above: Refill Request Start: 03-26-2023 End: 03-26-2023 Patient encounter procedure Lizbeth Jesus MEDICAL ADMINISTRATOR.CURING PRESS OPERATOR Work Phone: [facility] Comment on above: URI, acute (Primary Dx) Start: 01-01-2023 End: 01-01-2023 Patient encounter procedure Nely Jaimegs MEDICAL ADMINISTRATOR.CURING PRESS OPERATOR Work Phone: [facility] Comment on above: Pharyngitis, unspeci fied etiology (Primary Dx); Acute otitis media, right Start: 12-21-2022 End: 12-21-2022 Patient encounter procedure Kym Mcrae PA Work Phone: [facility] Comment on above: URI, acute (Primary Dx) Start: 07-23-2022 Refill Qian [place] on PA-C Work Phone: [facility] [place] Comment on above: Refill Request Start: 03-31-2022 Telephone encounter Anmol Chen MD Work Phone: [facility] [place] Comment on above: Medication Question Start: 03-29-2022 End: 03-29-2022 Patient encounter procedure Diogenes Lim MD Work Phone: [facility] Comment on above: COVID-19 (Primary Dx ) Start: 03-10-2022 Refill Qian [place] on PA-C Work Phone: [facility] [place] Comment on above: Refill Request Start: 02-26-2022 ambulatory Anmol denise MD Work Phone: [facility] [place] Start: 02-05-2022 End: 02-05-2022 Patient encounter procedure Sun Mariee MEDICAL ADMINISTRATOR.CURING PRESS OPERATOR Work Phone: [facility] Comment on above: Upper respiratory in fection with cough and congestion (Primary Dx) Start: 01-24-2022 End: 01-24-2022 Patient encounter procedure Qian Somers PA-C Work Phone: [facility] [place] Comment on above: Depression, unspecif ied depression type (Primary Dx); Anxiety neurosis; Hyperlipidemia, mixed; Vitamin D deficiency; Pulmonary emphysema, unspecified emphysema type (HCC); Smoker; SOB (shortness of breath); Screening for diabetes mellitus; Fatigue, unspecified type; Pain of finger of left hand Procedures Date Procedure Procedure Detail Performing Clinician Start: 01-15-[address] Anmol Chen MD Work Phone: Start: 01-04-[address] e detection Dr. Anmol Chen MD Work Phone: Start: 01-04-[address] Anmol Chen MD Work Phone: Start: 01-04-[address] Anmol Chen MD Work Phone: Start: 01-04-20[address] Ova [address] parasites identification Dr. Anoml Chen MD Work Phone: Start: 01-04-2025 Urnls dip stick/tabl et reagent auto microscopy Dr. Anmol Chen MD Work Phone: Start: 01-04-[address] Anmol Chen MD Work Phone: Start: 11-24-2024 Ct abdomen & pelvis w/o contrast material Kushal Bosch MD Work Phone: Start: 10-24-2024 INFLUENZA A&B MOLECU LAR (POC) Diogenes Lim MD Work Phone: Start: 01-12-2024 Lipid 1996 panel - S lisa or Plasma Qian Somers PA-C Work Phone: Start: 01-01-2023 STREP A MOLECULAR (POC) Nely Schmidt MEDICAL ADMINISTRATOR.CURING PRESS OPERATOR Work Phone: Start: 12-13-2020 Lipid 1996 panel - S lisa or Plasma Anmol Chen MD Work Phone: Start: 08-19-2016 Colonoscopy Qian cohen PA-C Work Phone: Start: 08-04-2016 Mammography Qian cohen PA-C Work Phone: Plan of Treatment Date Care Activity Detail Author Start: 2033 PNEUMOCOCCAL (3 - PP SV23 if available, else PCV20) PNEUMOCOCCAL (3 - PPSV23 if available, else PCV20) [facility] Start: 2033 PNEUMOCOCCAL (3 - PP SV23 or PCV20) PNEUMOCOCCAL (3 - PPSV23 or PCV20) [facility] Start: 2033 Pneumococcal vaccination [facility] Start: 01-11-2029 Lipid panel Lipid Screening [facility] Start: 01-20-2028 Diabetes Screening Diabetes Screenms g [facility] Start: 12-02-2027 Diabetes Screening Diabetes Screenms g [facility] Start: 11-03-2027 Diabetes Screening Diabetes Screenin g [facility] Start: 10-30-2027 Diabetes Screening Diabetes Screenin g [facility] Start: 10-27-2027 Diabetes Screening Diabetes Screenin g [facility] Start: 10-24-2027 Diabetes Screening Diabetes Screenin g [facility] Start: 01-11-2027 Diabetes Screening Diabetes Screenin g [facility] Start: 08-19-2026 Colonoscopy COLONOSCOPY [facility] Start: 08-19-2026 COLORECTAL CANCER SCREENING COLORECTAL CANCER SCREENING [facility] Start: 08-19-2026 Screening for malign ant neoplasm of colon [facility] Start: 04-15-2026 Urine microalbumin profile [facility] Start: 01-19-2026 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 Annual PCP Team Chronic Disease Visit [facility] Start: 12-13-2025 Lipid 1996 panel - S lisa or Plasma Lipid Screening [facility] Start: 12-13-2025 Lipid panel Lipid Screening [facility] Start: 12-13-2025 LIPID SCREEN LIPID SCREEN [facility] Start: 12-01-2025 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 Annual PCP Team Chronic Disease Visit [facility] Start: 11-24-2025 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 Annual PCP Team Chronic Disease Visit [facility] Start: 11-04-2025 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 Annual PCP Team Chronic Disease Visit [facility] Start: 05-01-2025 Influenza vaccination C [facility] Start: 04-04-2025 End: 04-04-2025 Patient encounter procedure 04/04/2025 11:20 AM EDT Office Visit [facility] [address] [place] [address] Elena Isbell APRN.CURING PRESS OPERATOR [address] [place], [place] [id number] 6 week follow up [facility] Comment on above: 6 week follow up Start: 03-28-2025 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 Annual PCP Team Chronic Disease Visit [facility] Start: 03-21-2025 [facility] Start: 03-14-2025 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 Annual PCP Team Chronic Disease Visit [facility] Start: 03-14-2025 Screening for malign ant neoplasm of cervix Cervical Cancer Screening [facility] Comment on above: Postponed from 09/08 (Declined at this time) Start: 03-14-2025 Screening for malign ant neoplasm of lung Lung Cancer Screening [facility] Comment on above: Postponed from 04/16 (Declined at this time) Start: 03-14-2025 Spirometry Spirometry [facility] Comment on above: Postponed from 04/16 (Declined at this time) Start: 03-02-2025 End: 03-02-2025 Patient encounter procedure 03/02/2025 2:00 PM EDT Office Visit [facility] De[facility] Salazar [address] [place] [address] Elena Isbell, MEDICAL ADMINISTRATOR.CURING PRESS OPERATOR [address] [place], [place] [phone] 6 week follow up Family [facility] Comment on above: 6 week follow up Start: 01-24-2025 End: 04-25-2025 Cobalamin (Vitamin B12) [Mass/volume] in Serum or Plasma VITAMIN B12 Lab Routine Numbness and tingling Expected: 01/24/2025, Expires: 04/25/2025 [facility] Work Phone: Comment on above: Expected: 01/24/2025 , Expires: 04/25/2025 Start: 01-24-2025 End: 04-25-2025 Folate [Mass/volume] in Serum or Plasma FOLATE, SERUM Lab Routine Numbness and tingling Expected: 01/24/2025, Expires: 04/25/2025 [facility] Comment on above: Expected: 01/24/2025 , Expires: 04/25/2025 Start: 01-19-2025 End: 01-19-2025 Patient encounter procedure 01/19/2025 12:00 PM EDT Office Visit [facility] [address] [place] [phone] Elena Isbell APRN.CURING PRESS OPERATOR [address] [place] [address] 6 week follow up [facility] Comment on above: 6 week follow up Start: 01-15-2025 [facility] Start: 01-15-2025 End: 01-15-2025 Enteric precautions [facility] Start: 01-11-2025 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 Annual PCP Team Chronic Disease Visit [facility] Start: 01-11-2025 Hepatitis C screening Hepatitis C [facility] Comment on above: Postponed from 04/16 (Declined at this time) Start: 01-11-2025 HIV screening HIV Screening [facility] Comment on above: Postponed from 04/16 (Declined at this time) Start: 01-05-2025 End: 01-05-2025 Patient encounter procedure 01/05/2025 10:20 AM EDT Office Visit [facility] [address] [place], [place] [phone] Elena Isbell APRN.CURING PRESS OPERATOR [address] [place] [address] 6 week follow up [facility] Comment on above: 6 week follow up Start: 01-04-2025 Enteric Bacteriology Enteric Bacteri ology [facility] Start: 01-04-2025 Ova and Parasites Ova and Parasites [facility] Start: 01-04-2025 [facility] Start: 01-04-2025 Enteric precautions [facility] Start: 12-01-2024 End: 12-01-2024 Patient encounter procedure RADIO [facility] Comment on above: Dx: Infection in abd omen (HCC) [K65.9] Start: 11-24-2024 End: 11-24-2024 Patient encounter procedure Cat Scan Comment on above: ct scan Depression; See nurs e Triage note Start: 11-24-2024 End: 02-23-2025 25-hydroxyvitamin D3 [Mass/volume] in Serum or Plasma VITAMIN D 25 HYDROXY Lab Routine Night sweats Expected: 11/24/2024, Expires: 02/23/2025 [facility] Comment on above: Expected: 11/24/2024 , Expires: 02/23/2025 Start: 11-24-2024 End: 02-23-2025 Estradiol (E2) [Mass/volume] in Serum or Plasma ESTRADIOL-17B BLD Lab Routine Decreased libido Expected: 11/24/2024, Expires: 02/23/2025 [facility] Comment on above: Expected: 11/24/2024 , Expires: 02/23/2025 Start: 11-24-2024 End: 02-23-2025 TESTOSTERONE, FREE AND TOTAL, BY EQUILIBRIUM ULTRAFILTRATION MASS SPECTROMETRY TESTOSTERONE, FREE AND TOTAL, BY EQUILIBRIUM ULTRAFILTRATION MASS SPECTROMETRY Lab Routine Decreased libido Expected: 11/24/2024, Expires: 02/23/2025 [facility] Comment on above: Expected: 11/24/2024 , Expires: 02/23/2025 Start: 11-24-2024 End: 02-23-2025 THYROID PEROXIDASE ANTIBODY THYROID PEROXIDASE ANTIBODY Lab Routine Night sweats Expected: 11/24/2024, Expires: 02/23/2025 [facility] Comment on above: Expected: 11/24/2024 , Expires: 02/23/2025 Start: 11-24-2024 End: 02-23-2025 Thyrotropin [Units/volume] in Serum or Plasma THYROID STIMULATING HORMONE Lab Routine Night sweats Expected: 11/24/2024, Expires: 02/23/2025 [facility] Work Phone: Comment on above: Expected: 11/24/2024 , Expires: 02/23/2025 Start: 11-24-2024 End: 02-23-2025 Thyroxine (T4) free [Mass/volume] in Serum or Plasma T4 FREE/FREE THYROXINE Lab Routine Night sweats Expected: 11/24/2024, Expires: 02/23/2025 [facility] Comment on above: Expected: 11/24/2024 , Expires: 02/23/2025 Start: 11-24-2024 End: 02-23-2025 Triiodothyronine (T3) Free [Mass/volume] in Serum or Plasma T3, FREE Lab Routine Night sweats Expected: 11/24/2024, Expires: 02/23/2025 [facility] Comment on above: Expected: 11/24/2024 , Expires: 02/23/2025 Start: 11-18-2024 End: 12-17-2025 CT Abdomen and Pelvis WO contrast CT ABD/PEL WO IVCON Radiology STAT Infection in abdomen (HCC) Expected: 11/18/2024, Expires: 12/17/2025 [facility] [employer] Work Phone: Comment on above: Expected: 11/18/2024 , Expires: 12/17/2025 Start: 11-17-2024 End: 11-17-2024 Patient encounter procedure General Surgery Comment on above: post op 10/24/24 post op lap appendectomy- Start: 11-15-2024 End: 11-15-2024 Patient encounter procedure 11/15/2024 12:30 PM EDT Appointment Infusion Center [facility] [place] [address] first dose antib., abscesspatricia(PAPA) Infusion Center Comment on above: first dose antib., a bscess, patricia(PAPA) Start: 11-14-2024 Pneumococcal Vaccine : 50+ (3 of 3 - PCV20 or PCV21) Pneumococcal Vaccine: 50+ (3 of 3 - PCV20 or PCV21) [facility] Start: 11-14-2024 End: 11-14-2024 Patient encounter procedure 11/14/2024 9:40 AM EDT Office [place] [id number] I need a appointment from my doctor [facility] Comment on above: I need a appointment from my doctor Start: 11-11-2024 End: 11-11-2024 Patient encounter procedure 11/11/2024 11:20 AM EDT Office Visit [facility] [place] [address] [place] [address] Elena Isbell APRN.CURING PRESS OPERATOR [address] [facility] [place] [place] [address] Potasium check [facility] Comment on above: Potasium check Start: 11-10-2024 End: 02-09-2025 Potassium [Moles/volume] in Serum or Plasma POTASSIUM Lab Routine Hypokalemia Expected: 11/10/2024, Expires: 02/09/2025 [facility] Work Phone: Comment on above: Expected: 11/10/2024 , Expires: 02/09/2025 Start: 11-07-2024 End: 02-06-2025 Potassium [Moles/volume] in Serum or Plasma POTASSIUM Lab Routine Hypokalemia Expected: 11/07/2024, Expires: 02/06/2025 [facility] Work Phone: Comment on above: Expected: 11/07/2024 , Expires: 02/06/2025 Start: 11-06-2024 End: 11-06-2024 Home visit 11/06/2024 2:30 PM EDT Home Care Visit [facility] [address] [place] [address] Isamar Chang RN [address] [place] [address] SN IV UP TO 90 MIN [facility] Comment on above: SN IV UP TO 90 MIN Start: 11-04-2024 End: 11-04-2024 Patient encounter procedure [facility] Comment on above: [facility] D/C 11/01 Start: 06-15-2024 End: 09-14-2024 25-hydroxyvitamin D3 [Mass/volume] in Serum or Plasma VITAMIN D 25 HYDROXY Lab Routine Vitamin D deficiency Expected: 06/15/2024, Expires: 09/14/2024 [facility] Work Phone: Comment on above: Expected: 06/15/2024 , Expires: 09/14/2024 Start: 05-01-2024 Covid-19 Vaccine () Covid-19 Vaccine () [facility] Start: 05-01-2024 Influenza vaccination C [facility] Start: 04-12-2024 End: 04-12-2024 Patient encounter procedure 04/12/2024 10:00 AM EDT Office Visit Psychiatry [address] [place] [phone] Oma Lagos, MEDICAL ADMINISTRATOR.CURING PRESS OPERATOR [address] [place] [phone] NEW PATIENT Psychiatry Comment on above: NEW PATIENT Start: 03-28-2024 End: 03-28-2024 Patient encounter procedure 03/28/2024 10:20 AM EDT Office Visit [facility] [place] [address] [place] [address] Qian Somers PA-C [address] [place] [address] Diarrhea [facility] [place] Comment on above: Diarrhea Start: 03-14-2024 End: 06-13-2024 25-hydroxyvitamin D3 [Mass/volume] in Serum or Plasma VITAMIN D 25 HYDROXY Lab Routine Vitamin D deficiency Expected: 03/14/2024, Expires: 06/13/2024 [facility] Work Phone: Comment on above: Expected: 03/14/2024 , Expires: 06/13/2024 Start: 03-14-2024 End: 03-14-2024 Patient encounter procedure 03/14/2024 10:20 AM EDT Office Visit [facility] [place] [address] [place] [address] Qian Somers PA-C [address] [facility] [place] [address] Physical/ recheck vit D [facility] [place] Comment on above: Physical/ recheck vi t D Start: 01-12-2024 End: 04-12-2024 Cobalamin (Vitamin B12) [Mass/volume] in Serum or Plasma [facility] Comment on above: Expected: 01/12/2024 , Expires: 04/12/2024 Start: 01-12-2024 End: 04-12-2024 Comprehensive metabolic 2000 panel - Serum or Plasma [facility] Work Phone: Comment on above: Expected: 01/12/2024 , Expires: 04/12/2024 Start: 01-12-2024 End: 04-12-2024 Folate [Mass/volume] in Serum or Plasma [facility] Comment on above: Expected: 01/12/2024 , Expires: 04/12/2024 Start: 01-12-2024 End: 04-12-2024 Hemoglobin A1c in Blood [facility] Comment on above: Expected: 01/12/2024 , Expires: 04/12/2024 Start: 01-12-2024 End: 04-12-2024 Iron and Iron binding capacity panel - Serum or Plasma [facility] Comment on above: Expected: 01/12/2024 , Expires: 04/12/2024 Start: 01-12-2024 End: 04-12-2024 LIPID PANEL, NONFASTING [facility] Comment on above: Expected: 01/12/2024 , Expires: 04/12/2024 Start: 01-12-2024 End: 04-12-2024 Thyrotropin [Units/volume] in Serum or Plasma [facility] Comment on above: Expected: 01/12/2024 , Expires: 04/12/2024 Start: 01-12-2024 End: 01-12-2024 Patient encounter procedure 01/12/2024 11:40 AM EDT Office Visit [facility] [place] [address] [place], [place] [address] Qian Somers PA-C [address] [place] [address] Potassium [facility] [place] Comment on above: Potassium Start: 12-14-2023 DIABETES SCREEN [facility]ABETES SCREEN [facility] Start: 12-14-2023 Diabetes Screening Diabetes Screenin g [facility] Start: 05-01-2023 Covid-19 Vaccine () Covid-19 Vaccine () [facility] Start: 05-01-2023 Influenza vaccination C [facility] Start: 03-26-2023 End: 04-09-2023 Influenza virus A and B RNA and SARS-CoV-2 (COVID-19) N gene panel - Respiratory specimen by LYNN with probe detection COVID WITH FLUA+B, ROUTINE Microbiology Routine URI, acute Expected: 03/26/2023, Expires: 04/09/2023 [facility] Work Phone: Comment on above: Expected: 03/26/2023 , Expires: 04/09/2023 Start: 01-24-2023 ANNUAL PCP TEAM POLYGRAPH EXAMINER YUNG DISEASE VISIT ANNUAL PCP TEAM CHRONIC DISEASE VISIT [facility] Start: 05-08-2022 COVID-19 VACCINE (5 - Booster for Pfizer series) COVID-19 VACCINE (5 - Booster for Pfizer series) [facility] Start: 05-08-2022 COVID-19 VACCINE (5 - Pfizer series) COVID-19 VACCINE (5 - Pfizer series) [facility] Start: 05-01-2022 Influenza vaccination C [facility] Start: 01-24-2022 End: 03-26-2022 CBC W Auto Differential panel - Blood CBC + DIFF Lab Routine Fatigue, unspecified type Expected: 01/24/2022, Expires: 03/26/2022 [facility] Work Phone: Comment on above: Expected: 01/24/2022 , Expires: 03/26/2022 Start: 01-24-2022 End: 03-26-2022 Comprehensive metabolic 2000 panel - Serum or Plasma COMP METABOLIC PANEL Lab Routine Pulmonary emphysema, unspecified emphysema type (HCC) Expected: 01/24/2022, Expires: 03/26/2022 [facility] Work Phone: Comment on above: Expected: 01/24/2022 , Expires: 03/26/2022 Start: 01-24-2022 End: 03-26-2022 Hemoglobin A1c/Hemoglobin.total in Blood HGB A1C Lab Routine Screening for diabetes mellitus Expected: 01/24/2022, Expires: 03/26/2022 [facility] Work Phone: Comment on above: Expected: 01/24/2022 , Expires: 03/26/2022 Start: 01-24-2022 End: 03-26-2022 LIPID PANEL, NONFASTING LIPID PANEL, NONFASTING Lab Routine Hyperlipidemia, mixed Expected: 01/24/2022, Expires: 03/26/2022 [facility] Work Phone: Comment on above: Expected: 01/24/2022 , Expires: 03/26/2022 Start: 01-24-2022 End: 03-26-2022 Thyrotropin [Units/volume] in Serum or Plasma TSH BLD Lab Routine Fatigue, unspecified type Expected: 01/24/2022, Expires: 03/26/2022 [facility] Work Phone: Comment on above: Expected: 01/24/2022 , Expires: 03/26/2022 Start: 01-24-2022 End: 03-26-2022 VITAMIN D 25 HYDROXY VITAMIN D 25 HYDROXY Lab Routine Vitamin D deficiency Expected: 01/24/2022, Expires: 03/26/2022 [facility] Work Phone: Comment on above: Expected: 01/24/2022 , Expires: 03/26/2022 Start: 10-11-2021 COVID-19 VACCINE (4 - Booster for Pfizer series) COVID-19 VACCINE (4 - Booster for Pfizer series) [facility] Start: 09-08-2021 HPV TESTING HPV TESTING [facility] Start: 09-08-2021 PAP TESTING PAP TESTING [facility] Start: 09-08-2021 Screening for malign ant neoplasm of cervix [facility] Start: 11-14-2020 PNEUMOCOCCAL (3 - PP SV23 or PCV20) PNEUMOCOCCAL (3 - PPSV23 or PCV20) [facility] Start: 2018 Influenza vaccination LUNG CANCER SC REENING [facility] Start: 2018 Screening for malign ant neoplasm of lung Lung Cancer Screening [facility] Start: 2018 SHINGRIX VACCINE (1 of 2) GLOVER GRIX VACCINE (1 of 2) [facility] Start: 08-04-2017 Mammography [facility] Start: 08-04-2017 Screening for malign ant neoplasm of breast Mammogram Screening [facility] Start: 2013 COLOGUARD (FIT-DNA) COLOGUARD (FIT-D NA) [facility] Start: [address] COLONOGRAPHY [facility] Start: 2013 FECAL OCCULT BLOOD FECAL OCCULT BLOO D [facility] Start: 2013 Screening for malign ant neoplasm of colon [facility] Start: 2013 SIGMOIDOSCOPY SIGMOIDOSCOPY [facility] Start: 1998 Zoledronic acid therapy ALPHA- 1 ANTITRYPSIN DEFICIENCY SCREENING [facility] Start: 1987 Hepatitis B Vaccine (1 of 3 - 19+ 3-dose series) Hepatitis B Vaccine (1 of 3 - 19+ 3-dose series) [facility] Start: 1987 SHINGRIX VACCINE (1 of 2) GLOVER GRIX VACCINE (1 of 2) [facility] Start: 1986 HEPATITIS C SCREENING HEPATITIS C [facility] Start: 1986 Hepatitis C screening Hepatitis C [facility] Start: 1986 HIV SCREENING HIV SCREENING [facility] Start: 1986 HIV screening HIV Screening [facility] Start: 1986 SPIROMETRY SPIROMETRY [facility] Start: 1968 HEPATITIS B (1 of 3 - 3-dose series) HEPATITIS B (1 of 3 - 3-dose series) [facility] Start: 1968 Hepatitis B Vaccine (1 of 3 - 3-dose series) Hepatitis B Vaccine (1 of 3 - 3-dose series) [facility] Clostridioides diffi cile DNA [Presence] in Unspecified specimen by LYNN with probe detection [facility] Clostridioides diffi cile toxin genes [Presence] in Stool by LYNN with probe detection CLOSTRIDIUM DIFFICILE TOXIN BY PCR Lab Routine Antibiotic long-term use Ordered: 12/01/2024 [facility] Comment on above: Ordered: 12/01/2024 End: 12-31-2025 CT Abdomen and Pelvis W contrast IV CT ABD/PEL W IVCON Radiology STAT Infection in abdomen (HCC) 1 Occurrences starting 12/01/2024 until 12/31/2025 [facility] Work Phone: Comment on above: 1 Occurrences starti ng 12/01/2024 until 12/31/2025 End: 01-12-2026 DBT Breast - bilateral screening JADEN SCREENING W HUBERT Radiology Routine Encounter for screening mammogram for breast cancer 1 Occurrences starting 12/13/2024 until 01/12/2026 [facility] Work Phone: Comment on above: 1 Occurrences starti ng 12/13/2024 until 01/12/2026 ENTERIC BACTERIAL PA RABIA BY PCR ENTERIC BACTERIAL PANEL BY PCR Lab Routine Antibiotic long-term use Ordered: 12/01/2024 [facility] Comment on above: Ordered: 12/01/2024 End: 02-11-2025 MG Breast Screening JADEN SCREENING Radiology Routine Encounter for screening mammogram for breast cancer 1 Occurrences starting 01/13/2024 until 02/11/2025 [facility] Work Phone: Comment on above: 1 Occurrences starti ng 01/13/2024 until 02/11/2025 Nucleic acid assay [facility] Nucleic acid assay [facility] Ova OR parasites identification [facility] Patient Education [facility] Work Phone: Patient referral [facility] Work Phone: End: 03-28-2023 Screening mammography bi 2-view breast inc cad JADEN SCREENING Radiology Routine Encounter for screening mammogram for breast cancer 1 Occurrences starting 02/26/2022 until 03/28/2023 [facility] Work Phone: Comment on above: 1 Occurrences starti ng 02/26/2022 until 03/28/[address] [facility] Immunizations Immunization Date Immunization Notes Care Provider Fa kacey 11-15-2019 influenza, injectabl e, quadrivalent, contains preservative Qian Somers PA-C Work Phone: [facility] 11-15-2019 pneumococcal conjuga te vaccine, 13 valent Qian Somers PA-C Work Phone: [facility] 11-15-2019 influenza virus vacc ine, unspecified formulation Anmol Chen MD Work Phone: [facility] 06-26-2016 influenza, injectabl e, quadrivalent, contains preservative Qian Somers PA-C Work Phone: [facility] 04-23-2016 tuberculin skin test ; purified protein derivative solution, intradermal Anmol Beaulieu APRN.CNP Work Phone: [facility] 04-15-2016 tetanus toxoid, redu little diphtheria toxoid, and acellular pertussis vaccine, adsorbed Qian Somers PA-C Work Phone: [facility] Work Phone: 07-12-2012 pneumococcal polysaccharide vaccine, 23 valent Qian Somers PA-C Work Phone: [facility] Work Phone: Payers Date Payer Category Payer Self-pay [id number] 2024 Medicaid [id number] 2024 Medicaid [id number] Unknown [id number] Unknown [id number] Unknown [id number] Unknown [id number] Unknown [id number] Social History Date Type Detail Facility Start: 12-13-2020 End: 03-21-2025 Tobacco smoking status NHIS Smokes tobacco daily [facility] Start: 12-13-2020 End: 09-07-2023 Cigarettes smoked current (pack per day) - Reported 1 [facility] Start: 12-13-2020 End: 08-26-2024 Tobacco use and exposure Smokeless tobacco non-user [facility] Start: 01-24-2022 End: 03-10-2025 Alcohol intake Current non-drinker of alcohol (finding) [facility] Start: 11-14-2021 History SDOH Alcohol Frequency 1 [facility] Start: 11-14-2021 History SDOH Alcohol Std Drinks 98 [facility] Start: 11-14-2021 History SDOH Social Connections Phone 5 [facility] Start: 11-14-2021 History SDOH Social Connections Get Together 3 [facility] Start: 11-14-2021 History SDOH Social Connections Membership 2 [facility] Start: 11-14-2021 History SDOH Physica l Activity MPS 4 [facility] Start: 12-13-2020 End: 12-21-2022 Tobacco Comment 1/2 pack per day [facility] Start: 1970 Sex Assigned At Not on file C [facility] Start: 01-14-2022 End: 03-28-2022 Exposure to SARS-CoV-2 (event) Not sure [facility] History of tobacco use Cigarette Smoker C [facility] Start: 03-26-2023 End: 09-07-2023 Tobacco use panel [facility] Do you belong to any clubs or organizations such as cheondoism groups, unions, fraternal or athletic groups, or school groups? No [facility] Are you now , , , , never or living with a partner? [facility] How often to you hav e a drink containing alcohol? Never [facility] How many standard dr inks containing alcohol do you have on a typical day? Patient refused [facility] How hard is it for y ou to pay for the very basics like food, housing, medical care, and heating Somewhat hard [facility] Do you feel stress - tense, restless, nervous, or anxious, or unable to sleep at night because your mind is troubled all the time - these days [OSQ] Very much [facility] (I/We) worried jenae er (my/our) food would run out before (I/we) got money to buy more. Never true [facility] How often to you hav e a drink containing alcohol? 2-4 times a month [facility] How many standard dr inks containing alcohol do you have on a typical day? 1 or 2 [facility] Start: 01-04-2025 Sex Female (finding) Arianna martínez [facility] Start: 1970 Sex Assigned At Female W tasha [facility] Do you feel stress - tense, restless, nervous, or anxious, or unable to sleep at night because your mind is troubled all the time - these days [OSQ] Rather much [facility] (I/We) worried jenae er (my/our) food would run out before (I/we) got money to buy more. Sometimes true [facility] Functional Status Date Assessment Result Facility 01-18-2025 Total score [AUDIT-C] 0 01/19/20 5:02 PM EDT User, Teenat [facility] 01-18-2025 How often to you hav e a drink containing alcohol? Never 01/18/2025 5:02 PM EDT User, Jacklynhart Never [facility] 01-18-2025 Functional status Patient does n ot drink 01/18/2025 5:02 PM EDT User, Teenat Patient does not drink [facility] 01-18-2025 How often do you hav e 6 or more drinks on 1 occasion? Never 01/18/2025 5:02 PM EDT User, Teenat Never [facility] 10-27-2024 Are you deaf, or do you have serious difficulty hearing No 10/27/2024 12:56 PM Ermelinda Gallagher No [facility] 10-27-2024 Are you blind, or do you have serious difficulty seeing, even when wearing glasses No 10/27/2024 12:56 PM Ermelinda Gallagher No [facility] 10-27-2024 Do you have serious difficulty walking or climbing stairs No 10/27/2024 12:56 PM Ermelinda Gallagher No [facility] 10-27-2024 Do you have difficul ty dressing or bathing No 10/27/2024 12:56 PM Ermelinda Gallagher No [facility] 10-27-2024 Because of a physica l, mental, or emotional condition, do you have difficulty doing errands alone such as visiting a physician's office or shopping No 10/27/2024 12:56 PM Ermelinda Gallagher No [facility] 12-23-2014 Are you deaf, or do you have serious difficulty hearing No 12/23/2014 9:53 AM Latonia Aguirre Ma No [facility] 12-23-2014 Are you blind, or do you have serious difficulty seeing, even when wearing glasses No 12/23/2014 9:53 AM Latonia Aguirre Ma No [facility] 12-23-2014 Do you have serious difficulty walking or climbing stairs No 12/23/2014 9:53 AM Latonia Aguirre Ma No [facility] 12-23-2014 Do you have difficul ty dressing or bathing No 12/23/2014 9:53 AM Latonia Aguirre Ma No [facility] 12-23-2014 Because of a physica l, mental, or emotional condition, do you have difficulty doing errands alone such as visiting a physician's office or shopping No 12/23/2014 9:53 AM Latonia Aguirre Ma No [facility] Mental Status Date Assessment Result Facility 10-27-2024 Because of a physica l, mental, or emotional condition, do you have serious difficulty concentrating, remembering, or making decisions No 10/27/2024 12:56 PM Ermelinda Gallagher No [facility] 12-23-2014 Because of a physica l, mental, or emotional condition, do you have serious difficulty concentrating, remembering, or making decisions No 12/23/2014 9:53 AM Latonia Aguirre Ma No [facility] Clinical Notes 01-24-2022 to 03-21-2025 Telephone Encounter - Sarika Marin RN - 03/16/2025 4:59 PM EDTTelephone Encounter - Sarika Marin RN - 03/16/2025 4:59 PM EDTTelephone Encounter - Shelia Blackmon RN - 03/16/2025 4:55 PM EDT Note Date & Type Note Facility 03-21-2025 Discharge summary [facility] 03-16-2025 Telephone encounter Note Pt returned call and given provider's message below with verbalized understanding. [facility] 03-16-2025 Miscellaneous Notes Pt returned call and given provider's message below with verbalized understanding. TC patient, left message for patient to call back and speak with a triage nurse regarding provider instructions. Shelia Blackmon RN Yes this should be ok. Patient calls and states that just had a bunch of teeth pulled. Patient was given a prescription of Hydrocodone for Pain. Patient asking if it is ok to take since she also takes Cymbalta? Please review and advise, Shelia Blackmon RN documented in this encounter [facility] 03-16-2025 Telephone encounter Note TC patient, left message for patient to call back and speak with a triage nurse regarding provider instructions. Shelia Blackmon RN [facility] 03-16-2025 Telephone encounter Note Yes this should be ok. [facility] 03-16-2025 Telephone encounter Note Patient calls and states that just had a bunch of teeth pulled. Patient was given a prescription of Hydrocodone for Pain. Patient asking if it is ok to take since she also takes Cymbalta? Please review and advise, Shelia Blackmon RN [facility] 03-06-2025 Telephone encounter Note Pt notified of provider's message. Pt voiced understanding. Lizzy Dupont LPN [facility] 03-06-2025 Miscellaneous Notes Pt notified of provider's message. Pt voiced understanding. Lizzy Dupont LPN Call placed to patient with no answer. Message left to return call to a triage nurse to receive provider message. Rosi Teran RN I will not prescribe antibiotics without patient being seen. Tylenol would be patient's only option for OTC pain control at this time. Patient calls to let provider know that she is going to [facility] on Thursday for an abscessed tooth and asking if provider would give her an antibiotic. Notified would need an appointment. Patient reports provider knows her and her history well so asking if would consider. Also, asking what would be recommended as needed for pain. Patient reports Tylenol ES doesn't help her pain and she can't take ibuprofen because of being on Cymbalta. Please review and advise, Rosi Teran RN documented in this encounter [facility] 03-06-2025 Telephone encounter Note Call placed to patient with no answer. Message left to return call to a triage nurse to receive provider message. Rosi Teran RN [facility] 03-06-2025 Telephone encounter Note I will not prescribe antibiotics without patient being seen. Tylenol would be patient's only option for OTC pain control at this time. [facility] 03-06-2025 Telephone encounter Note Patient calls to let provider know that she is going to [facility] on Thursday for an abscessed tooth and asking if provider would give her an antibiotic. Notified would need an appointment. Patient reports provider knows her and her history well so asking if would consider. Also, asking what would be recommended as needed for pain. Patient reports Tylenol ES doesn't help her pain and she can't take ibuprofen because of being on Cymbalta. Please review and advise, Rosi Teran RN [facility] 01-30-2025 Telephone encounter Note Pt notified of results via [employer]hart. Mame Lopez Ma [facility] 01-30-2025 Miscellaneous Notes Pt notified of results via [employer]. Mame Lopez Ma Please let patient know her b12 and folate are normal. Numbness and tingling is likely from Cdiff infection. documented in this encounter [facility] 01-30-2025 Telephone encounter Note Please let patient know her b12 and folate are normal. Numbness and tingling is likely from Cdiff infection. [facility] 01-24-2025 Telephone encounter Note Pt called and is notified of providers message and instructions. Pt voices understanding. Shellie Ruiz RN [facility] 01-24-2025 Miscellaneous Notes Pt called and is notified of providers message and instructions. Pt voices understanding. Shellie Ruiz RN Left message for patient to return call to office Kirstin Wallace MA Please let patient know I have ordered a couple other blood tests since everything is normal. Spoke with pt. She advises that [facility] knows about this and that is why they were doing the testing. Pt is ok for [facility] to review when she returns. Message has been forwarded to [facility]. Ashly Gerber LPN Patient was seen by [facility] yesterday, but I don't see that they discussed this. Recommend follow up to discuss this concern, or wait until [facility] returns. Qian Somers PA-C Pt called and is notified of providers results. Pt voices understanding. Pt states her fingers and toes get numb and hurt. She wanted to know what is recommended for that. Please call and advise. Shellie Ruiz, RN Left message for pt to contact office. Ashly Gerber LPN Labs are normal, Qian Somers PA-C documented in this encounter [facility] 01-24-2025 Telephone encounter Note Left message for patient to return call to office Kirstin Wallace MA [facility] 01-24-2025 Telephone encounter Note Please let patient know I have ordered a couple other blood tests since everything is normal. [facility] 01-20-2025 Telephone encounter Note Spoke with pt. She advises that [facility] knows about this and that is why they were doing the testing. Pt is ok for [facility] to review when she returns. Message has been forwarded to [facility]. Ashly Gerber LPN [facility] 01-20-2025 Telephone encounter Note Patient was seen by [facility] yesterday, but I don't see that they discussed this. Recommend follow up to discuss this concern, or wait until [facility] returns. Qian Somers PA-C [facility] 01-20-2025 Telephone encounter Note Pt called and is notified of providers results. Pt voices understanding. Pt states her fingers and toes get numb and hurt. She wanted to know what is recommended for that. Please call and advise. Shellie Ruiz, RN [facility] 01-20-2025 Telephone encounter Note Left message for pt to contact office. Ashly Gerber LPN [facility] 01-20-2025 Telephone encounter Note Labs are normal, Qian Somers PA-C [facility] 01-19-2025 Note HNO ID: [id number] Author: ELENA ISBELL APRN.[employer] Service: ? Author Type: Nurse Practitioner Type: Progress Notes Filed: 01/19/2025 12:07 Note Text: Chief Complaint Patient presents with: Follow Up HPI Jenna Valadez is a 54 year old female who presents here today for Above Complaints.. Patient presents for med follow up. Patient was started on cymbalta and buspar Past medical history, appointments, medications, allergies reviewed. Previous Medical History PAST MEDICAL HISTORY Diagnosis Date Anxiety Depression Emphysema lung (HCC) 08/14/2016 Hypokalemia Hypomagnesemia Low HDL (under 40) Previous Surgical History PAST SURGICAL HISTORY Procedure Laterality Date COLONOSCOPY 08/19/2016 EGD 08/19/2016 Family History FAMILY HISTORY Problem Relation Age of Onset Breast Cancer Mother Heart Maternal Grandmother Diabetes Maternal Grandmother Arthritis Maternal Uncle Breast Cancer Sister Breast Cancer Paternal Aunt Patient Allergies ALLERGIES Allergen Reactions Prozac [Fluoxetine * Other: See Comments headaches Wellbutrin [Bupropi* Other: See Comments Increased anxiety and stomach ache Current Medications Current Outpatient Medications on File Prior to Visit Medication Sig ergocalciferol 50,000 unit capsule (VITAMIN D2, DRISDOL) Take 1 capsule by mouth one time a week. Use as directed. busPIRone (BUSPAR) 7.5 mg tablet Take 1 tablet by mouth three times a day. DULoxetine (CYMBALTA) 20 mg capsule Take 1 capsule by mouth once daily. diphenhydrAMINE HCL (BENADRYL ALLERGY) 50 mg tablet Take 50 mg by mouth every 12 hours. take before every Vancomycin dose vancomycin HCl in 5 % dextrose (VANCOMYCIN HCL IN DEXTROSE) 1 gram/250 mL soln Inject 1 g intravenously every 12 hours. Vancomycin 1gm IV every 12 hours x 2 weeks Infuse over 60 minutes via Control [facility] to mix as minibag in 250mL D5W meropenem (MERREM) 1 gram injection Inject 1 g intravenously every 8 hours. Meropenem 1gm IV every 8 hours x 2 weeks Infuse over 30 minutes via [facility] to mix as minibag plus in 100mL NS sodium chloride (NaCl) 0.9% injection solution Inject 10 mL intravenously as directed. Flush before blood draws with 10 mL and after blood draws with 20 mL. Flush before and after each dose with 10 mL. Flush unused lumens with 10 mL daily. acetaminophen (TYLENOL) 500 mg tablet Take 2 tablets by mouth every 6 hours. albuterol HFA (PROVENTIL HFA, VENTOLIN HFA) 90 mcg/actuation inhaler Inhale 2 Puffs as instructed every 4 hours as needed for wheezing/shortness of breath. No current facility-administered medications on file prior to visit. Social History Social History Tobacco Use Smoking status: Every Day Current packs/day: 1.00 Average packs/day: 1 pack/day for 25.0 years (25.0 ttl pk-yrs) Types: Cigarettes Smokeless tobacco: Never Vaping Use Vaping status: Never Used Substance Use Topics Alcohol use: No Drug use: Not Currently Types: Marijuana Review of Symptoms REVIEW OF SYSTEMS SEE HPI EXAM: BP 109/71 Pulse 91 Wt 60 kg (132 lb 4.4 oz) LMP (LMP Unknown) BMI 24.66 kg/m? General Appearance: Well appearing, alert, in no acute distress, well-hydrated, well nourished. Health Maintenance List Hepatitis C Screening Never done HIV Screening Never done Hepatitis B Vaccine(1 of 3 - 19+ 3-dose series) Never done Mammogram Screening due on 08/04/2017 Shingrix Vaccine(1 of 2) Never done Covid-19 Vaccine( season) due on 05/01/2024 Pneumococcal Vaccine: 50+(3 of 3 - PCV20 or PCV21) due on 11/14/2024 Lung Cancer Screening due on 03/14/2025 Cervical Cancer Screening due on 03/14/2025 Influenza Vaccine(Season Ended) due on 05/01/2025 Annual PCP Team Chronic Disease Visit due on 12/01/2025 DTaP,Tdap,Td Vaccine(2 - Td or Tdap) due on 04/15/2026 Colorectal Cancer Screening due on 08/19/2026 Diabetes Screening due on 12/02/2027 Lipid Screening due on 01/11/2029 Data reviewed KELSI-7 03/27/2024 11/04/2024 11/23/2024 01/18/2025 KELSI-7 All Questions Feeling nervous, anxious, or on edge More than half the days Several days Nearly Everyday Several days Not being able to stop or control worrying More than half the days Several days Nearly Everyday Several days Worrying too much about different things More than half the days Several days Nearly Everyday Nearly Everyday Trouble relaxing Not at all Several days More than half the days Several days Being so restless that it is hard to sit still Not at all Not at all More than half the days Several days Becoming easily annoyed or irritable Not at all More than half the days More than half the days More than half the days Feeling afraid, as if something awful might happen Not at all More than half the days More than half the days Nearly Everyday KELSI-7 Score 6 8 17 12 ASSESSMENT/PLAN: 1. KELSI (generalized anxiety disorder) - ICD9: 300.02, ICD10: F41.1 (primar (more content not included)... [facility] 01-16-2025 Telephone encounter Note Please let patient know I have placed a referral for SW to help patient with assistance programs. [facility] 01-16-2025 Miscellaneous Notes Please let patient know I have placed a referral for SW to help patient with assistance programs. Pt returned call and given provider's message below with verbalized understanding. Pt reports you have to work at a job for a year to get those benefits. Reports she has maxed out her credit cards, and trying to pay her bills, reports she was working and at the end of Oct her appendix burst, then she became septic, then she developed and abscess- and had to have 5 IV AB's with a Nurse, then she got C-Diff. States she hasn't been able to keep a job since her appendix burst. Reports noone is going to let her work with c-diff. 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 Asking if she would qualify for any assistance. States she's going to lose everything. Does SW know of any assistance pt may qualify for? Please advise patient. Called and left a voicemail for the Patient to call back and ask for a nurse to receive the providers message. Shellie Ruiz RN No being hospitalized will not change treatment course as cdiff must be treated with oral antibiotics. Does she have short term disability? If so she should bring that paperwork with her. Or at least [employer] so she does not lose her job. Pt called and is notified of providers message. Pt states she doesn't see GI. She states she went to the ER and they switched her to the Dificid, but the pharmacy was out of it and they won't have any in unitl 3 pm today. Pt has an appointment with provider on . She states she works [employer] and the place she works for won't let her back until this is taken care of. Pt states she has bills to pay and she isn't . She was asking if there is anything that can be done to get rid of this more quickly like her getting put in the hospital. She states this has been going on since October. Please call and advise. Shellie Ruiz, RN If patient does not improve on dificid she may need fecal transplant. Does she currently see GI? Patient calling she had been dealing with C-diff for over a month now. She had to go to [facility] ER yesterday and was changed from vancomycin to Dificid. She is having constant diarrhea. She has not picked up the rx yet, pharmacy did not have it in. Patient asking what is here next step if this does not work? She has missed 2 weeks of work and again. 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 Please advise documented in this encounter [facility] 01-16-2025 Telephone encounter Note Pt returned call and given provider's message below with verbalized understanding. Pt reports you have to work at a job for a year to get those benefits. Reports she has maxed out her credit cards, and trying to pay her bills, reports she was working and at the end of Oct her appendix burst, then she became septic, then she developed and abscess- and had to have 5 IV AB's with a Nurse, then she got C-Diff. States she hasn't been able to keep a job since her appendix burst. Reports noone is going to let her work with c-diff. 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 Asking if she would qualify for any assistance. States she's going to lose everything. Does SW know of any assistance pt may qualify for? Please advise patient. [facility] 01-16-2025 Telephone encounter Note Called and left a voicemail for the Patient to call back and ask for a nurse to receive the providers message. Shellie Ruiz RN [facility] 01-16-2025 Telephone encounter Note No being hospitalized will not change treatment course as cdiff must be treated with oral antibiotics. Does she have short term disability? If so she should bring that paperwork with her. Or at least [employer] so she does not lose her job. [facility] 01-16-2025 Telephone encounter Note Pt called and is notified of providers message. Pt states she doesn't see GI. She states she went to the ER and they switched her to the Dificid, but the pharmacy was out of it and they won't have any in unitl 3 pm today. Pt has an appointment with provider on . She states she works [employer] and the place she works for won't let her back until this is taken care of. Pt states she has bills to pay and she isn't . She was asking if there is anything that can be done to get rid of this more quickly like her getting put in the hospital. She states this has been going on since October. Please call and advise. Shellie Ruiz RN [facility] 01-16-2025 Telephone encounter Note If patient does not improve on dificid she may need fecal transplant. Does she currently see GI? [facility] 01-16-2025 Telephone encounter Note Patient calling she had been dealing with C-diff for over a month now. She had to go to [facility] ER yesterday and was changed from vancomycin to Dificid. She is having constant diarrhea. She has not picked up the rx yet, pharmacy did not have it in. Patient asking what is here next step if this does not work? She has missed 2 weeks of work and again. 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 Please advise [facility] 01-04-2025 Discharge summary [facility] 12-13-2024 Note Patient Outreach (FAMPWS) JENNA VALADEZ ([id number]) 1970 F Date Time Provider Department 12/13/24 ANMOL CHEN FAMPWS During your visit today, we recorded the following information about you: Allergies As of Date: 12/13/2024 Noted Allergy Reaction PROZAC (FLUOXETINE HCL) 06/11/2015 14 - Other: See Comments Comments: headaches WELLBUTRIN (BUPROPION HCL) 12/19/2019 14 - Other: See Comments Comments: Increased anxiety and stomach ache Date Reviewed: 12/01/2024 Reviewed by: Samantha Park, RN - Fully Assessed Visit Diagnosis:Encounter for screening mammogram for breast cancer [Z12.31] Order(s):[facility] [[id number]] Order #: [id number] FUTURE Prescriptions as of 01/13/2025 - ergocalciferol 50,000 unit capsule (VITAMIN D2, DRISDOL) Take 1 capsule by mouth one time a week. Use as directed. - busPIRone (BUSPAR) 7.5 mg tablet Take 1 tablet by mouth three times a day. - DULoxetine (CYMBALTA) 20 mg capsule Take 1 capsule by mouth once daily. - diphenhydrAMINE HCL (BENADRYL ALLERGY) 50 mg tablet Take 50 mg by mouth every 12 hours. take before every Vancomycin dose - vancomycin HCl in 5 % dextrose (VANCOMYCIN HCL IN DEXTROSE) 1 gram/250 mL soln Inject 1 g intravenously every 12 hours. Vancomycin 1gm IV every 12 hours x 2 weeks Infuse over 60 minutes via Control a [facility] to mix as minibag in 250mL D5W - meropenem (MERREM) 1 gram injection Inject 1 g intravenously every 8 hours. Meropenem 1gm IV every 8 hours x 2 weeks Infuse over 30 minutes via gravity Pharmacy to mix as minibag plus in 100mL NS - sodium chloride (NaCl) 0.9% injection solution Inject 10 mL intravenously as directed. Flush before blood draws with 10 mL and after blood draws with 20 mL. Flush before and after each dose with 10 mL. Flush unused lumens with 10 mL daily. - acetaminophen (TYLENOL) 500 mg tablet Take 2 tablets by mouth every 6 hours. - albuterol HFA (PROVENTIL HFA, VENTOLIN HFA) 90 mcg/actuation inhaler Inhale 2 Puffs as instructed every 4 hours as needed for wheezing/shortness of breath. 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.2] 08/07/2016 Emphysema lung (HCC) [J43.9] 08/14/2016 Ovarian cyst, left [N83.202] 09/15/2016 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 [*10/04/2016 Chronic pain of both knees [M25.561, M25.562, G*12/09/2016 Encounter for screening for cardiovascular diso*12/09/2016 Hypokalemia [E87.6] 12/09/2016 11/02/2024 Hyperlipidemia, mixed [E78.2] 02/15/2019 PTSD (post-traumatic stress disorder) [F43.10] 02/08/2024 Panic attack [F41.0] 02/08/2024 Well adult exam [Z00.00] 03/14/2024 KELSI (generalized anxiety disorder) [F41.1] 03/14/2024 Acute appendicitis [K35.80] 10/24/2024 S/P laparoscopic appendectomy [Z90.49] 10/27/2024 Postoperative intra-abdominal abscess (HCC) [T8*10/30/2024 Intra-abdominal abscess (HCC) [K65.1] 11/15/2024 Encounter Status:Closed by [employer], PRODUSER on 01/13/25 [facility] 12-07-2024 Evaluation note Diagnosis Onset Date Resolution Physical exam, pre-employment acute December 07, 2024 1:12pm [facility] Work Phone: 1(103) 419-629604-08-2025 Telephone encounter Note* Telephone Encounter - Shelia Blackmon RN - 12/06/2024 10:48 AM EDT Patient notified of results and provider's instructions. Patient verbalizes understanding. Shelia Blackmon RN [facility]04-08-2025 Miscellaneous Notes* Telephone Encounter - Shelia Blackmon RN - 12/06/2024 10:48 AM EDT Patient notified of results and provider's instructions. Patient verbalizes understanding. Shelia Blackmon RN * Telephone Encounter - Kirstin Wallace MA - 12/06/2024 10:41 AM EDT Left message for patient to return call to office Kirstin Wallace MA * Telephone Encounter - Elena Isbell APRN.CNP - 12/06/2024 9:28 AM EDT Please let patient know her vitamin d is low. I have sent in a prescription for supplementation. [facility] Telephone encounter Note * Telephone Encounter - Kirstin Wallace MA - 12/06/2024 10:41 AM EDT Left message for patient to return call to office Kirstin Wallace MA [facility]04-08-2025 Telephone encounter Note* Telephone Encounter - Elena Isbell APRN.CNP - 12/06/2024 9:28 AM EDT Please let patient know her vitamin d is low. I have sent in a prescription for supplementation. [facility]04-05-2025 Telephone encounter Note* Telephone Encounter - Corwin Bellamy MD - 12/03/2024 8:[address] 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 This was given to pt from ED. Jolene Raymond MA documented [facility] Telephone encounter Note * Telephone Encounter - Jolene Raymond MA - 12/03/2024 8:34 AM EDT Please review and advise since you are OC. This was given to pt from ED. Jolene Raymond MA [facility]04-03-2025 NoteHNO ID: [id number] Author: ELENA ISBELL APRN.CURING PRESS OPERATOR Service: ? Author Type: Nurse Practitioner Type: Progress Notes Filed: 12/01/2024 08:14 Note Text: Chief Complaint Patient presents with: Diarrhea Nausea HPI Jenna Valadez is a 54 year old female who presents here today for Above Complaints.. Patient presents for worsening diarrhea, nausea and chills. Patient reports last night her symptoms got significantly worse. She was on vancomycin and meropenem for abdominal wall abscess following appendectomy but this was stopped on 11/25. Her last CT on 11/24 showed no acute findings. Her PICC line was removed at that time as well. Past medical history, appointments, medications, allergies reviewed. Previous Medical History PAST MEDICAL HISTORY Diagnosis Date Anxiety Depression Emphysema lung (HCC) 08/14/2016 Hypokalemia Hypomagnesemia Low HDL (under 40) Previous Surgical History PAST SURGICAL HISTORY Procedure Laterality Date COLONOSCOPY 08/19/2016 EGD 08/19/2016 Family History FAMILY HISTORY Problem Relation Age of Onset Breast Cancer Mother Heart Maternal Grandmother Diabetes Maternal Grandmother Arthritis Maternal Uncle Breast Cancer Sister Breast Cancer Paternal Aunt Patient Allergies ALLERGIES Allergen Reactions Prozac [Fluoxetine * Other: See Comments headaches Wellbutrin [Bupropi* Other: See Comments Increased anxiety and stomach ache Current Medications Current Outpatient Medications on File Prior to Visit Medication Sig busPIRone (BUSPAR) 7.5 mg tablet Take 1 tablet by mouth three times a day. DULoxetine (CYMBALTA) 20 mg capsule Take 1 capsule by mouth once daily. diphenhydrAMINE HCL (BENADRYL ALLERGY) 50 mg tablet Take 50 mg by mouth every 12 hours. take before every Vancomycin dose vancomycin HCl in 5 % dextrose (VANCOMYCIN HCL IN DEXTROSE) 1 gram/250 mL soln Inject 1 g intravenously every 12 hours. Vancomycin 1gm IV every 12 hours x 2 weeks Infuse over 60 minutes via Control a [facility] to mix as minibag in 250mL D5W meropenem (MERREM) 1 gram injection Inject 1 g intravenously every 8 hours. Meropenem 1gm IV every 8 hours x 2 weeks Infuse over 30 minutes via gravity Pharmacy to mix as minibag plus in 100mL NS sodium chloride (NaCl) 0.9% injection solution Inject 10 mL intravenously as directed. Flush before blood draws with 10 mL and after blood draws with 20 mL. Flush before and after each dose with 10 mL. Flush unused lumens with 10 mL daily. acetaminophen (TYLENOL) 500 mg tablet Take 2 tablets by mouth every 6 hours. albuterol HFA (PROVENTIL HFA, VENTOLIN HFA) 90 mcg/actuation inhaler Inhale 2 Puffs as instructed every 4 hours as needed for wheezing/shortness of breath. No current facility-administered medications on file prior to visit. Social History Social History Tobacco Use Smoking status: Every Day Current packs/day: 1.00 Average packs/day: 1 pack/day for 25.0 years (25.0 ttl pk-yrs) Types: Cigarettes Smokeless tobacco: Never Vaping Use Vaping status: Never Used Substance Use Topics Alcohol use: No Drug use: Not Currently Types: Marijuana Review of Symptoms REVIEW OF SYSTEMS SEE HPI EXAM: BP 102/69 Pulse (!) 123 Wt 56 kg (123 lb 7.3 oz) LMP (LMP Unknown) BMI 23.01 kg/m? General Appearance: Well appearing, alert, in no acute distress, well-hydrated, well nourished.. Lungs: Lungs clear to auscultation. No wheezing, rhonchi, rales.. Heart: RRR without murmur, gallop, or rubs. No ectopy. Abdomen: Negative findings: no masses palpable, no organomegaly, no bruits heard, liver span normal to percussion, soft, non-tender, and spleen non-palpable, Positive findings: hypoactive bowel sounds. Health Maintenance List Hepatitis B Vaccine(1 of 3 - 19+ 3-dose series) Never done Alpha-1 Antitrypsin Deficiency Screening Never done Mammogram Screening due on 08/04/2017 Shingrix Vaccine(1 of 2) Never done Influenza Vaccine(1) due on 05/01/2024 Covid-19 Vaccine( season) due on 05/01/2024 Pneumococcal Vaccine: 50+(3 of 3 - PCV20 or PCV21) due on 11/14/2024 Hepatitis C Screening due on 01/11/2025 HIV Screening due on 01/11/2025 Spirometry due on 03/14/2025 Lung Cancer Screening due on 03/14/2025 Cervical Cancer Screening due on 03/14/2025 Annual PCP Team Chronic Disease Visit due on 11/24/2025 DTaP,Tdap,Td Vaccine(2 - Td or Tdap) due on 04/15/2026 Colorectal Cancer Screening due on 08/19/2026 Diabetes Screening due on 11/03/2027 Lipid Screening due on 01/11/2029 ASSESSMENT/PLAN: 1. Infection in abdomen (HCC) - ICD9: 567.9, ICD10: K65.9 (primary diagnosis) - CT ABD/PEL W IVCON - IV CONTRAST (RADIOLOGY PROCEDURE) - NOT ON MAR - ENTERIC CONTRAST (RADIOLOGY PROCEDURE) - NOT ON MAR - COMPLETE BLOOD COUNT AND DIFFERENTIAL - COMPREHENSIVE METABOLIC PANEL 2. Antibiotic long-term use - ICD9: V58.62, ICD10: Z79.2 - ENTERIC BACTERIAL PANEL BY PCR - C (more content not included)...[facility]04-03-2025 History of Present illness Narrative* Elena Isbell APRN.CURING PRESS OPERATOR - 12/01/2024 7:48 AM EDT Chief Complaint Patient presents with: Diarrhea Nausea HPI Jenna Valadez is a 54 year old female who presents here today for Above Complaints.. Patient presents for worsening diarrhea, nausea and chills. Patient reports last night her symptomsgot significantly worse. She was on vancomycin and meropenem for abdominal wall abscess following appendectomy but this was stopped on 11/25. Her last CT on 11/24 showed no acute findings. Her PICC line was removed at that time as well. Past medical history, appointments, medications, allergies reviewed. Previous Medical History PAST MEDICAL HISTORY Diagnosis Date Anxiety Depression Emphysema lung (HCC) 08/14/2016 Hypokalemia Hypomagnesemia Low HDL (under 40) Previous Surgical History PAST SURGICAL HISTORY Procedure Laterality Date COLONOSCOPY 08/19/2016 EGD 08/19/2016 Family History FAMILY HISTORY Problem Relation Age of Onset Breast Cancer Mother Heart Maternal Grandmother Diabetes Maternal Grandmother Arthritis Maternal Uncle Breast Cancer Sister Breast Cancer Paternal Aunt Patient Allergies ALLERGIES Allergen Reactions Prozac [Fluoxetine * Other: See Comments headaches Wellbutrin [Bupropi* Other: See Comments Increased anxiety and stomach ache Current Medications Current Outpatient Medications on File Prior to Visit Medication Sig busPIRone (BUSPAR) 7.5 mg tablet Take 1 tablet by mouth three times a day. DULoxetine (CYMBALTA) 20 mg capsule Take 1 capsule by mouth once daily. diphenhydrAMINE HCL (BENADRYL ALLERGY) 50 mg tablet Take 50 mg by mouth every 12 hours. take beforeevery Vancomycin dose vancomycin HCl in 5 % dextrose (VANCOMYCIN HCL IN DEXTROSE) 1 gram/250 mL soln Inject 1 g intravenously every 12 hours. Vancomycin 1gm IV every 12 hours x 2 weeks Infuse over 60 minutes via Control a [facility] to mix as minibag in 250mL D5W meropenem (MERREM) 1 gram injection Inject 1 g intravenously every 8 hours. Meropenem 1gm IV every 8 hours x 2 weeks Infuse over 30 minutes via gravity Pharmacy to mix as minibag plus in 100mL NS sodium chloride (NaCl) 0.9% injection solution Inject 10 mL intravenously as directed. Flush beforeblood draws with 10 mL and after blood draws with 20 mL. Flush before and after each dose with 10 mL. Flush unused lumens with 10 mL daily. acetaminophen (TYLENOL) 500 mg tablet Take 2 tablets by mouth every 6 hours. albuterol HFA (PROVENTIL HFA, VENTOLIN HFA) 90 mcg/actuation inhaler Inhale 2 Puffs as instructed every 4 hours as needed for wheezing/shortness of breath. No current facility-administered medications on file prior to visit. Social History Social History Tobacco Use Smoking status: Every Day Current packs/day: 1.00 Average packs/day: 1 pack/day for 25.0 years (25.0 ttl pk-yrs) Types: Cigarettes Smokeless tobacco: Never Vaping Use Vaping status: Never Used Substance Use Topics Alcohol use: No Drug use: Not Currently Types: Marijuana Review of Symptoms REVIEW OF SYSTEMS SEE HPI EXAM: BP 102/69 Pulse (!) 123 Wt 56 kg (123 lb 7.3 oz) LMP (LMP Unknown) BMI 23.01 kg/m General Appearance: Well appearing, alert, in no acute distress, well-hydrated, well nourished.. Lungs: Lungs clear to auscultation. No wheezing, rhonchi, rales.. Heart: RRR without murmur, gallop, or rubs. No ectopy. Abdomen: Negative findings: no masses palpable, no organomegaly, no bruits heard, liver span normalto percussion, soft, non-tender, and spleen non- palpable, Positive findings: hypoactive bowel sounds. Health Maintenance List Hepatitis B Vaccine(1 of 3 - 19+ 3-dose series) Never done Alpha-1 Antitrypsin Deficiency Screening Never done Mammogram Screening due on 08/04/2017 Shingrix Vaccine(1 of 2) Never done Influenza Vaccine(1) due on 05/01/2024 Covid-19 Vaccine( season) due on 05/01/2024 Pneumococcal Vaccine: 50+(3 of 3 - PCV20 or PCV21) due on 11/14/2024 Hepatitis C Screening due on 01/11/2025 HIV Screening due on 01/11/2025 Spirometry due on 03/14/2025 Lung Cancer Screening due on 03/14/2025 Cervical Cancer Screening due on 03/14/2025 Annual PCP Team Chronic Disease Visit due on 11/24/2025 DTaP,Tdap,Td Vaccine(2 - Td or Tdap) due on 04/15/2026 Colorectal Cancer Screening due on 08/19/2026 Diabetes Screening due on 11/03/2027 Lipid Screening due on 01/11/2029 ASSESSMENT/PLAN: 1. Infection in abdomen (HCC) - ICD9: 567.9, ICD10: K65.9 (primary diagnosis) - CT ABD/PEL W IVCON - IV CONTRAST (RADIOLOGY PROCEDURE) - NOT ON MAR - ENTERIC CONTRAST (RADIOLOGY PROCEDURE) - NOT ON MAR - COMPLETE BLOOD COUNT AND DIFFERENTIAL - COMPREHENSIVE METABOLIC PANEL 2. Antibiotic long-term use - ICD9: V58.62, ICD10: Z79.2 - ENTERIC BACTERIAL PANEL BY PCR - CLOSTRIDIUM DIFFICILE TOXIN BY PCR 3. Postoperative intra-abdominal abscess (HCC) - ICD9: 998.59, 567.22, ICD10: T81.43XA, K65.1 - COMPLETE BLOOD COUNT AND DIFFERENTIAL - COMPREHENSIVE METABOLIC PANEL Elena Isbell APRN.CURING PRESS OPERATOR documented [facility] Telephone encounter Note * Telephone Encounter - Harlan Dominguez MD - 11/30/2024 12:28 PM EDT Rx sent for diflucan. Take as directed. If symptoms not improved after 3rd dose, would recommend OVfor evaluation [facility]04-02-2025 Miscellaneous Notes* Telephone Encounter - Harlan Dominguez MD - 11/30/2024 12:28 PM EDT Rx sent for diflucan. Take as directed. If symptoms not improved after 3rd dose, would recommend OVfor evaluation * Telephone Encounter - Gonzalo Valverde LPN - 11/30/2024 8:02 AM EDT Routing to doc aviation manager. * Telephone Encounter - Gonzalo Valverde LPN - 11/30/2024 7:58 AM EDT See pt message. AIMEE 11/24/24. Pt had been receiving IV atb d/t postoperative abscess following an appendectomy. documented in this [facility]Pro[facility]04-[facility] Telephone encounter Note * Telephone Encounter - Gonzalo Valverde LPN - 11/30/2024 8:02 AM EDT Routing to doc aviation manager. [facility]04-02-2025 Telephone encounter Note* Telephone Encounter - Gonzalo Valverde LPN - 11/30/2024 7:58 AM EDT See pt message. AIMEE 11/24/24. Pt had been receiving IV atb d/t postoperative abscess following an appendectomy. [facility]03-30-[facility]25 Telephone encounter Note* Telephone Encounter - Mohsen Villegas RN - 11/27/2024 10:38 AM EDT Patient completed IV antibiotics and skilled nurse pulled PICC line during home care visit yesterday (11/26/2024). Patient requested discharge from home nursing services. Patient has no further home care needs at this time. Thank you for the referralMohsen- director of email marketing [facility] Work Phone: 1(815) 120-326203-30-2025 Miscellaneous Notes* Telephone Encounter - Mohsen Villegas RN - 11/27/2024 10:38 AM EDT Patient completed IV antibiotics and skilled nurse pulled PICC line during home care visit yesterday (11/26/2024). Patient requested discharge from home nursing services. Patient has no further home care needs at this time. Thank you for the Orlando licona director of email marketing documented in this encounterProtest[facility]03-29-[facility]25 Miscellaneous Notes* [facility] Agency Mohsen Galicia RN - 11/26/2024 10:40 AM EDT SITUATION: Half-Way agency discharge visit completed today. only patient also present during today's visit. patient reports the following: Allergies--reviewed Medications--reviewed current medications and updated medication list: Cymbalta and Buspar (no severe medication interactions noted). Falls--None BACKGROUND: Reason for Home Care: Postoperative Intra-Abdominal Abscess ASSESSMENT: SN greeted at door by patient no DME and demonstrates stable gait. Patient appears in acute distress. Patient/CG concerns verbalized today: None Vitals (see flow sheet for details): stable SN findings today: Patient is alert and oriented, ambulates without use of assistive equipment- denies fall since last SN visit. Medication list reviewed and updated with Cymbalta and Buspar- no severe medication interactions noted. Patient completed IV antibiotic yesterday- SN pulled RUE SL PICC and applied pressure dressing- patient tolerated well. Abdominal incision is healed and REPRESENT[employer]IVE [employer]ERNMENT RELATIONS. Patient c/o chronic back and knee pain that is managed with PRN Tylenol. Patient requested discharge from home care services. SN provided and reviewed discharge instructions. Patient denies further questions/concerns at this time. See intervention summary for education details and any skills performed. Specific SN discharge instructions: Notify MD with any questions/concerns. Patient encouraged to take all medication as ordered, eat a well-balanced diet and follow up with all physician appointments. NOMNC: patient requested discharge today Discharged due to Goals met. Patient discharged from Home Care to: self-care RECOMMENDATION: Additional follow ups recommended: None Patient to follow up with Dr. Chen for additional medical questions/concerns. documented in this encounterProtestant [facility]acon[facility]03-29-[facility]25 Patient's home Note* [facility] Agency Mohsen Galicia RN - 11/26/2024 10:40 AM EDT SITUATION: Half-Way agency discharge visit completed today. only patient also present during today's visit. patient reports the following: Allergies--reviewed Medications--reviewed current medications and updated medication list: Cymbalta and Buspar (no severe medication interactions noted). Falls--None BACKGROUND: Reason for Home Care: Postoperative Intra-Abdominal Abscess ASSESSMENT: SN greeted at door by patient no DME and demonstrates stable gait. Patient appears in acute distress. Patient/CG concerns verbalized today: None Vitals (see flow sheet for details): stable SN findings today: Patient is alert and oriented, ambulates without use of assistive equipment- denies fall since last SN visit. Medication list reviewed and updated with Cymbalta and Buspar- no severe medication interactions noted. Patient completed IV antibiotic yesterday- SN pulled RUE SL PICC and applied pressure dressing- patient tolerated well. Abdominal incision is healed and CALVIN. Patient c/o chronic back and knee pain that is managed with PRN Tylenol. Patient requested discharge from home care services. SN provided and reviewed discharge instructions. Patient denies further questions/concerns at this time. See intervention summary for education details and any skills performed. Specific SN discharge instructions: Notify MD with any questions/concerns. Patient encouraged to take all medication as ordered, eat a well-balanced diet and follow up with all physician appointments. NOMNC: patient requested discharge today Discharged due to Goals met. Patient discharged from Home Care to: self-care RECOMMENDATION: Additional follow ups recommended: None Patient to follow up with Dr. Chen for additional medical questions/concerns. [facility] Work Phone: 1(111) 202-765403-28-2025 Telephone encounter Note* Telephone Encounter - Gail Gonzalez LPN - 11/25/2024 3:52 PM EDT Per Patricia--Ok to H & P Above orders given to Darryl with [facility] I also called Jenna and made her aware [facility]03-28-2025 Miscellaneous Notes* Telephone Encounter - Gail Gonzalez LPN - 11/25/2024 3:52 PM EDT Per Patricia--Ok to H & P Above orders given to Darryl with [facility] I also called Jenna and made her aware * Telephone Encounter - Gail Gonzalez LPN - 11/25/2024 1:50 PM EDT ADAM Monique--Please see the attached CT results on Jenna Valadez and the multiple emails below. She's currently on Meropenem and Vanc. Can we give orders to stop the abx and remove the picc line? * Telephone Encounter - Yolanda Terrell - 11/25/2024 1:34 PM EDT Jenna called CT completed yesterday and is final she has no medications left at home or supplies so if able to stop today she would like that, otherwise will need supplies. Yolanda Terrell * Telephone Encounter - Gail Gonzalez LPN - 11/23/2024 3:20 PM EDT November 21 labs wnl and reviewed in [facility] Vanc trough wnl at 14.4 * Telephone Encounter - Gail Gonzalez LPN - 11/18/2024 3:16 PM EDT Jc Monique--Getting a repeat CT scan and following up with Dr. Villa. In my discussion with him, itappeared that the patient is doing really well and was questioning why all the interventions were being done. I updated him that the abscess did not improve substantially with antibiotics and I was worried that we were failing treatment * Telephone Encounter - Gail Gonzalez LPN - 11/18/2024 10:11 AM EDT This week's labs were never done per our order. Hiro ordered a cbc w/diff yesterday at the appt which came back wnl. Orders given to nursing to make sure they obtain all labs on Thursday. * Telephone Encounter - Yolanda Terrell - 11/17/2024 1:[address] Bosch called and would like Dr Monique to call his cell so I put it out through perfect serve Yolanda Terrell * Telephone Encounter - Gail Gonzalez LPN - 11/15/2024 3:44 PM EDT Orders given to Jenna to take 50mg po Benadryl prior to infusing the vanc * Telephone Encounter - Bisi Griffith - 11/15/2024 2:36 PM EDT Update from Thi, patient completed infusions and did well. Symptoms resolved and patient d/c to home. * Telephone Encounter - Bisi Griffith - 11/15/2024 1:29 PM EDT [facility] Thi just called reporting patient c/o internal itching. Thi will follow reaction protocol and monitor for improvement. Will continue infusion and notify office with changes. * Telephone Encounter - Yolanda Terrell - 11/15/2024 1:10 PM EDT Jenna called needs a basic letter for work that she is on IV until 11/29/24 Yolanda Terrell * Telephone Encounter - Gail Gonzalez LPN - 11/11/2024 3:39 PM EDT NEW STOP DATE IS NOVEMBER 29 The first dose is scheduled for November 15 [facility] 12:30 The new stop date will be November 29 Darryl with [facility] was made aware * Telephone Encounter - Gail Gonzalez LPN - 11/11/2024 1:31 PM EDT MED CHANGE, NEW STOP DATE Per Patricia--Stop Ertapenem. Start Meropenem 1g Iv q8. Also start vancomycin 1 g iv q12 x2 weeks. Sheappears to be failing antibiotics. Needs to revisit with surgery to see if surgery is an option. Also order an interventional radiology guided drain for the abscess and a repeat CT scan at the end. Above orders given to Darryl with [facility] and to Adela with [facility]. The first dose order was faxed to [facility]. The f/u appt with the surgeon (Dr Bosch) is November 17. The CT order and the guided drain order will be placed in [facility]. Jenna is aware of the above. * Telephone Encounter - Gail Gonzalez LPN - 11/10/2024 11:57 AM EDT [facility] November 07 labs reviewed in [facility] EM Patricia--Jenna's November 07 plt came back elevated at 630 [phone]) and the stop date is Sat. Please review the copat, CT, and lab results. What would you like to do? * Telephone Encounter - Bisi Griffith - 11/02/2024 12:58 PM ESTSummary: COPAT ACTION-FOR IDC USE ONLY Images from the original note were not included. 11/02/2024 10:00 AM Guillermo Monique [facility] PROVIDER ADULT [id number] Patient Info Patient Name Sex Jenna Chang ([id number]) Female 1970 Encounter Notes Progress Notes by Guillermo Monique MD, encounter date 11/02/2024: Progress Notes [facility] Outpatient Parenteral Antimicrobial Therapy (OPAT) Start Form Patient Info Patient MRN Patient Name Address Date of [id number] eJnna Valadez [address] [facility] [id number] 1970 Start Date 11/02/2024 Physician Group [email or web address] Diagnosis GI/Hepatobiliary/Peritoneal: Intra-abdominal abscess Micro-organism CULTURE NEGATIVE IV Antibiotics Antibiotic Dose Frequency Stop Date Ertapenem 1 gram every 24 hours 11/12/2024 Lab Monitoring Plan Labs Frequency While on CBC/diff Creatinine Liver Function Tests every Thursday every Thursday every Thursday Ertapenem Ertapenem Ertapenem OPAT Pharmacy Consult Yes Cath Care Protocol Flush IV line with 10 mL of normal saline (0.9%) before and after each dose of medication or at a minimum once daily. Flush IV line with 10-20 mL of normal saline (0.9%) after lab draw. Postoperative intra-abdominal abscess Hypokalemia Chronic anemia Thrombocytosis Repeat CT w unchanged abscess on ceftriaxone and flagyl so changed to ertapenem Labs may be drawn on Thursday if Thursday is a holiday. Follow up Provider Follow up date/time Appointment type Guillermo Monique MD No Follow Up Provider Monitoring Treatment Course Guillermo Monique MD Address [address] [place] [address] Prescribing Provider's signature - electronically signed by Guillermo Monique MD on 11/02/24 at 10:01 AM documented in this encounterProtestant [facility]acon[facility]03-28-2025 Telephone encounter Note * Telephone Encounter - Gail Gonzalez LPN - 11/25/2024 1:50 PM EDT ADAM Monique--Please see the attached CT results on Jenna Valadez and the multiple emails below. She's currently on Meropenem and Vanc. Can we give orders to stop the abx and remove the picc line? [facility]03-28-2025 Telephone encounter Note* Telephone Encounter - Yolanda Terrell - 11/25/2024 1:34 PM EDT Jenna called CT completed yesterday and is final she has no medications left at home or supplies so if able to stop today she would like that, otherwise will need supplies. Yolanda Xander [facility]03-28-2025 Telephone encounter Note* Telephone Encounter - Saige Perez RN - 11/25/2024 1:19 PM EDT Patient called for CT results from 11/24/24 and recommended follow up. This nurse advised her of the results. Please advise and call patient back with recommendation for plan of care. Jenna states she is still on her ATB and wonders if she should continue the ATB? She also still has her PICC line and she wonders when she may go back to work. She also follows with DR Monique and is going to call their office [phone] for follow up plan from infectious disease. 11/24/2024 4:08 PM - Radiology, Oru In Impression IMPRESSION: No acute findings in the abdomen or pelvis. Interval resolution of inflammatory changes in the right lower quadrant. Patient last saw DR Bosch on 11/18/23: PLAN: If the patient notes any problems or signs of wound infections, the patient should contact me immediately. she may return to her regular activities as tolerated. I have ordered a CT scan of the abdomen pelvis to be obtained which will hopefully show improvementin her collection. If not she may be sent for IR drainage. Please advise regarding plan of care. Thank you Patient would like a call back [phone] (home) [phone] (cell) [facility]03-28-2025 Miscellaneous Notes* Telephone Encounter - Saige Perez RN - 11/25/2024 1:19 PM EDT Patient called for CT results from 11/24/24 and recommended follow up. This nurse advised her of the results. Please advise and call patient back with recommendation for plan of care. Jenna states she is still on her ATB and wonders if she should continue the ATB? She also still has her PICC line and she wonders when she may go back to work. She also follows with DR Monique and is going to call their office [phone] for follow up plan from infectious disease. 11/24/2024 4:08 PM - Radiology, Oru In Impression IMPRESSION: No acute findings in the abdomen or pelvis. Interval resolution of inflammatory changes in the right lower quadrant. Patient last saw DR Bosch on 11/18/23: PLAN: If the patient notes any problems or signs of wound infections, the patient should contact me immediately. she may return to her regular activities as tolerated. I have ordered a CT scan of the abdomen pelvis to be obtained which will hopefully show improvementin her collection. If not she may be sent for IR drainage. Please advise regarding plan of care. Thank you Patient would like a call back [phone] (home) [phone] (cell) * Telephone Encounter - Chanel Renteria LPN - 11/25/2024 1:14 PM EDT Patient called into office requesting results of CT and plan of care. Please advise. Chanel Renteria LPN documented in this encounterProtestant [facility]acon[facility]03-28-2025 Telephone encounter Note * Telephone Encounter - Chanel Renteria LPN - 11/25/2024 1:14 PM EDT Patient called into office requesting results of CT and plan of care. Please advise. Chanel Renteria LPN [facility] Work Phone: 1(614) 981-195803-27-2025 Evaluation note* Diagnosis Decreased libido- Primary Night sweats Generalized hyperhidrosis KELSI (generalized anxiety disorder) Generalized anxiety disorder Depression, unspecified depression type documented in this encounter [facility]03-27-2025 NoteHNO ID: [id number] Author: ELENA ISBELL APRN.CURING PRESS OPERATOR Service: ? Author Type: Nurse Practitioner Type: Progress Notes Filed: 11/24/2024 18:56 Note Text: Chief Complaint Patient presents with: Depression HPI Jenna Valadez is a 54 year old female who presents here today for Above Complaints.. Patient presents today for depression. Patient states she had an appendix surgery 11/21 and has had to take many antibiotics since the surgery. Patient states it has been a lot for her she is interested in medication. She is unable to work at this time. Patient states she has been on lexapro, celexa and Effexor. Patient states her sisters have been on zoloft and have had weight gain. She does not want try zoloft at this time. Patient states she feels no adela or happiness at this time. She thinks it could also be due to menopause she is interested in estrogen replacement but she does have a history of breast cancer in her family. Patient states she has had a decrease in libido. Patient states she is also having anxiety. Patient states she has been having some fatigue and night sweats but denies hair loss. Patient states she is also having fever and chill, but denies cough, SOB and chest pain. Past medical history, appointments, medications, allergies reviewed. Previous Medical History PAST MEDICAL HISTORY Diagnosis Date Anxiety Depression Emphysema lung (HCC) 08/14/2016 Hypokalemia Hypomagnesemia Low HDL (under 40) Previous Surgical History PAST SURGICAL HISTORY Procedure Laterality Date COLONOSCOPY 08/19/2016 EGD 08/19/2016 Family History FAMILY HISTORY Problem Relation Age of Onset Breast Cancer Mother Heart Maternal Grandmother Diabetes Maternal Grandmother Arthritis Maternal Uncle Breast Cancer Sister Breast Cancer Paternal Aunt Patient Allergies ALLERGIES Allergen Reactions Prozac [Fluoxetine * Other: See Comments headaches Wellbutrin [Bupropi* Other: See Comments Increased anxiety and stomach ache Current Medications Current Outpatient Medications on File Prior to Visit Medication Sig vancomycin 1 g in D5W 250 mL (VANCOCIN) Inject 1 g intravenously every 12 hours for 14 days. First Dose on 11/15/24 @ [facility] Labs: CBC/DIFF, Creat, LFTs, Pre-dose Vancomycin level qMonday Tentative stop 11/29/24 meropenem 1 g in NaCl 0.9% 100 mL (MERREM) Inject 1 g intravenously every 8 hours for 14 days. First Dose on 11/15/24 @ [facility] Labs: CBC/DIFF, Creat, LFTs, Pre-dose Vancomycin level qMonday. Tentative stop 11/29/24 diphenhydrAMINE HCL (BENADRYL ALLERGY) 50 mg tablet Take 50 mg by mouth every 12 hours. take before every Vancomycin dose vancomycin HCl in 5 % dextrose (VANCOMYCIN HCL IN DEXTROSE) 1 gram/250 mL soln Inject 1 g intravenously every 12 hours. Vancomycin 1gm IV every 12 hours x 2 weeks Infuse over 60 minutes via Control a [facility] to mix as minibag in 250mL D5W meropenem (MERREM) 1 gram injection Inject 1 g intravenously every 8 hours. Meropenem 1gm IV every 8 hours x 2 weeks Infuse over 30 minutes via gravity Pharmacy to mix as minibag plus in 100mL NS sodium chloride (NaCl) 0.9% injection solution Inject 10 mL intravenously as directed. Flush before blood draws with 10 mL and after blood draws with 20 mL. Flush before and after each dose with 10 mL. Flush unused lumens with 10 mL daily. acetaminophen (TYLENOL) 500 mg tablet Take 2 tablets by mouth every 6 hours. albuterol HFA (PROVENTIL HFA, VENTOLIN HFA) 90 mcg/actuation inhaler Inhale 2 Puffs as instructed every 4 hours as needed for wheezing/shortness of breath. No current facility-administered medications on file prior to visit. Social History Social History Tobacco Use Smoking status: Every Day Current packs/day: 1.00 Average packs/day: 1 pack/day for 25.0 years (25.0 ttl pk-yrs) Types: Cigarettes Smokeless tobacco: Never Vaping Use Vaping status: Never Used Substance Use Topics Alcohol use: No Drug use: Not Currently Types: Marijuana Review of Symptoms REVIEW OF SYSTEMS GENERAL: Fatigue RESPIRATORY: Negative for cough, hemoptysis, wheezing, COPD, dyspnea or shortness of breath CARDIOVASCULAR: Negative for chest pain, leg swelling, hypertension, CHF or palpitations EXAM: BP 120/78 Pulse 105 Wt 59 kg (130 lb 1.1 oz) LMP (LMP Unknown) BMI 24.24 kg/m? General Appearance: Well appearing, alert, in no acute distress, well-hydrated, well nourished.. Lungs: Lungs clear to auscultation. No wheezing, rhonchi, rales.. Heart: RRR without murmur, gallop, or rubs. No ectopy. Health Maintenance List Hepatitis B Vaccine(1 of 3 - 19+ 3-dose series) Never done Alpha-1 Antitrypsin Deficiency Screening Never done Mammogram Screening due on 08/04/2017 Shingrix Vaccine(1 of 2) Never done Influenza Vaccine(1) due on 05/01/2024 Covid-19 Vaccine(2023- season) due on 05/01/2024 Pneumococcal Vaccine: 50+(3 of 3 - PCV20 or PCV21) (more content not included)...[facility]03-27-2025 History of Present illness Narrative* Elena Isbell, [facility] - 11/24/2024 5:59 PM EDT Chief Complaint Patient presents with: Depression HPI Jenna Valadez is a 54 year old female who presents here today for Above Complaints.. Patient presents today for depression. Patient states she had an appendix surgery 11/21 and has had to take many antibiotics since the surgery. Patient states it has been a lot for her she is interested in medication. She is unable to work at this time. Patient states she has been on lexapro, celexaand Effexor. Patient states her sisters have been on zoloft and have had weight gain. She does not want try zoloft at this time. Patient states she feels no adela or happiness at this time. She thinks it could also be due to menopause she is interested in estrogen replacement but she does have a history of breast cancer in her family. Patient states she has had a decrease in libido. Patient states s he is also having anxiety. Patient states she has been having some fatigue and night sweats but denies hair loss. Patient states she is also having fever and chill, but denies cough, SOB and chest pain. Past medical history, appointments, medications, allergies reviewed. Previous Medical History PAST MEDICAL HISTORY Diagnosis Date Anxiety Depression Emphysema lung (HCC) 08/14/2016 Hypokalemia Hypomagnesemia Low HDL (under 40) Previous Surgical History PAST SURGICAL HISTORY Procedure Laterality Date COLONOSCOPY 08/19/2016 EGD 08/19/2016 Family History FAMILY HISTORY Problem Relation Age of Onset Breast Cancer Mother Heart Maternal Grandmother Diabetes Maternal Grandmother Arthritis Maternal Uncle Breast Cancer Sister Breast Cancer Paternal Aunt Patient Allergies ALLERGIES Allergen Reactions Prozac [Fluoxetine * Other: See Comments headaches Wellbutrin [Bupropi* Other: See Comments Increased anxiety and stomach ache Current Medications Current Outpatient Medications on File Prior to Visit Medication Sig vancomycin 1 g in D5W 250 mL (VANCOCIN) Inject 1 g intravenously every 12 hours for 14 days. First Dose on 11/15/24 @ [facility]. Labs: CBC/DIFF, Creat, LFTs, Pre-dose Vancomycin level qMonday Tentative stop 11/29/24 meropenem 1 g in NaCl 0.9% 100 mL (MERREM) Inject 1 g intravenously every 8 hours for 14 days. First Dose on 11/15/24 @ [facility] Labs: CBC/DIFF, Creat, LFTs, Pre-dose Vancomycin level qMonday. Tentative stop 11/29/24 diphenhydrAMINE HCL (BENADRYL ALLERGY) 50 mg tablet Take 50 mg by mouth every 12 hours. take beforeevery Vancomycin dose vancomycin HCl in 5 % dextrose (VANCOMYCIN HCL IN DEXTROSE) 1 gram/250 mL soln Inject 1 g intravenously every 12 hours. Vancomycin 1gm IV every 12 hours x 2 weeks Infuse over 60 minutes via Control a [facility] to mix as minibag in 250mL D5W meropenem (MERREM) 1 gram injection Inject 1 g intravenously every 8 hours. Meropenem 1gm IV every 8 hours x 2 weeks Infuse over 30 minutes via gravity Pharmacy to mix as minibag plus in 100mL NS sodium chloride (NaCl) 0.9% injection solution Inject 10 mL intravenously as directed. Flush beforeblood draws with 10 mL and after blood draws with 20 mL. Flush before and after each dose with 10 mL. Flush unused lumens with 10 mL daily. acetaminophen (TYLENOL) 500 mg tablet Take 2 tablets by mouth every 6 hours. albuterol HFA (PROVENTIL HFA, VENTOLIN HFA) 90 mcg/actuation inhaler Inhale 2 Puffs as instructed every 4 hours as needed for wheezing/shortness of breath. No current facility-administered medications on file prior to visit. Social History Social History Tobacco Use Smoking status: Every Day Current packs/day: 1.00 Average packs/day: 1 pack/day for 25.0 years (25.0 ttl pk-yrs) Types: Cigarettes Smokeless tobacco: Never Vaping Use Vaping status: Never Used Substance Use Topics Alcohol use: No Drug use: Not Currently Types: Marijuana Review of Symptoms REVIEW OF SYSTEMS GENERAL: Fatigue RESPIRATORY: Negative for cough, hemoptysis, wheezing, COPD, dyspnea or shortness of breath CARDIOVASCULAR: Negative for chest pain, leg swelling, hypertension, CHF or palpitations EXAM: BP 120/78 Pulse 105 Wt 59 kg (130 lb 1.1 oz) LMP (LMP Unknown) BMI 24.24 kg/m General Appearance: Well appearing, alert, in no acute distress, well-hydrated, well nourished.. Lungs: Lungs clear to auscultation. No wheezing, rhonchi, rales.. Heart: RRR without murmur, gallop, or rubs. No ectopy. Health Maintenance List Hepatitis B Vaccine(1 of 3 - 19+ 3-dose series) Never done Alpha-1 Antitrypsin Deficiency Screening Never done Mammogram Screening due on 08/04/2017 Shingrix Vaccine(1 of 2) Never done Influenza Vaccine(1) due on 05/01/2024 Covid-19 Vaccine(2023- season) due on 05/01/2024 Pneumococcal Vaccine: 50+(3 of 3 - PCV20 or PCV21) due on 11/14/2024 Hepatitis C Screening due on 01/11/2025 HIV Screening due on 01/11/2025 Spirometry due on 03/14/2025 Lung Cancer Screening due on 03/14/2025 Cervical Cancer Screening due on 03/14/2025 Annual PCP Team Chronic Disease Visit due on 11/04/2025 DTaP,Tdap,Td Vaccine(2 - Td or Tdap) due on 04/15/2026 Colorectal Cancer Screening due on 08/19/2026 Diabetes Screening due on 11/03/2027 Lipid Screening due on 01/11/2029 Data reviewed PHQ-9 06/26/2016 02/15/2019 03/27/2024 11/24/2024 PHQ-9 Scores Little interest or pleasure in doing things: Several days More than half the days More than half the days Nearly every day Feeling down, depressed, or hopeless: Several days More than half the days Not at all Nearly every day Trouble falling or staying asleep, or sleeping too much - Several days More than half the days Nearly every day Feeling tired or having little energy - More than half the days More than half the days Nearly every day Poor appetite or overeating - Not at all Not at all Nearly every day Feeling bad about yourself - or that you are a failure or have let yourself or your family down - More than half the days Not at all Nearly every day Trouble concentrating on things, such as reading the newspaper or watching television - More than half the days Not at all Nearly every day Moving or speaking so slowly that other people could have noticed. Or the opposite - being so fidgety or restless that you have been moving around a lot more than usual - Not at all Not at all Nearlyevery day Thoughts that you would be better off , or of hurting yourself in some way - Not at all Not at all Not at all PHQ-9 Score - 11 6 24 ASSESSMENT/PLAN: 1. Decreased libido - ICD9: 799.81, ICD10: R68.82 (primary diagnosis) - TESTOSTERONE, FREE AND TOTAL, BY EQUILIBRIUM ULTRAFILTRATION MASS SPECTROMETRY - ESTRADIOL-17B BLD - CONSULT TO GYNECOLOGY 2. Night sweats - ICD9: 780.8, ICD10: R61 - THYROID STIMULATING HORMONE - T3, FREE - T4 FREE/FREE THYROXINE - THYROID PEROXIDASE ANTIBODY - VITAMIN D 25 HYDROXY 3. KELSI (generalized anxiety disorder) - ICD9: 300.02, ICD10: F41.1 - BUSPIRONE 7.5 MG TABLET 4. Depression, unspecified depression type - ICD9: 311, ICD10: F32.A - DULOXETINE 20 MG CAPSULE,DELAYED RELEASE Elena Isbell APRN.CURING PRESS OPERATOR documented in this encounterProtest[facility]03-[facility] Telephone encounter Note * Telephone Encounter - Gail Gonzalez LPN - 11/23/2024 3:20 PM EDT November 21 labs wnl and reviewed in CC Epic Vanc trough wnl at 14.4 [facility]03-26-[facility]25 Miscellaneous Notes* HH CARE COORDINATION - Yaritza Izquierdo LSW - 11/23/2024 1:45 PM EDT 11/23/24 1:50 PM - 1:59 PM DIRECTOR OF REVENUE called the pt. to follow-up on Email sent and she stated she receivedit. The pt. stated she was managing but cannot work. She stated she worked one week this month. Thept. stated she goes tomorrow for a Cat Scan. DIRECTOR OF REVENUE asked the pt. if she has family that assists her. She stated her mother checks on her daily. The pt. stated she has applied for Medicaid again but sera told she was denied two times. The pt. stated she may have to fiile bankruptcy. DIRECTOR OF REVENUE asked the pt. about her utilities and if she had food. She denied any nneed for food or ther er financial assistance. The pt. stated she was aware of most of the agencies DIRECTOR OF REVENUE Emailed her. DIRECTOR OF REVENUE discussed with thept. that [employer] may assist her with filing bankruptcy. She stated she used [employer] Techn[employer] when she got a divorce. The pt. stated she plans to call Community Anger Control Counselor and asked DIRECTOR OF REVENUE to Eamil her again the information DIRECTOR OF REVENUE Emailed her on 11/07/24.DIRECTOR OF REVENUE Emailed the pt. again information on ESTELLA : ESTRELLA MAURICE INFORMATION REFERRAL EXCHANGE for information and referrals, Agencies that assist with utilities and rent - [employer], [employer], list of Food Pantries in [facility], [employer] - [employer]. The pt. stated she was still on HCAP. The pt. thanked DIRECTOR OF REVENUE for her help and DIRECTOR OF REVENUE informed the pt. to call DIRECTOR OF REVENUE with any needs. documented in this encounterProtestant [facility]acon[facility]03-26-2025 Patient's home Note* HH CARE COORDINATION - Yaritza Izquierdo LSW - 11/23/2024 1:45 PM EDT 11/23/24 1:50 PM - 1:59 PM DIRECTOR OF REVENUE called the pt. to follow-up on Email sent and she stated she receivedit. The pt. stated she was managing but cannot work. She stated she worked one week this month. Thept. stated she goes tomorrow for a Cat Scan. DIRECTOR OF REVENUE asked the pt. if she has family that assists her. She stated her mother checks on her daily. The pt. stated she has applied for Medicaid again but sera told she was denied two times. The pt. stated she may have to fiile bankruptcy. DIRECTOR OF REVENUE asked the pt. about her utilities and if she had food. She denied any nneed for food or ther er financial assistance. The pt. stated she was aware of most of the agencies DIRECTOR OF REVENUE Emailed her. DIRECTOR OF REVENUE discussed with thept. that [employer] may assist her with filing bankruptcy. She stated she used [employer] Surveyor Technologist when she got a divorce. The pt. stated she plans to call Community Anger Control Counselor and asked DIRECTOR OF REVENUE to Eamil her again the information DIRECTOR OF REVENUE Emailed her on 11/07/24.DIRECTOR OF REVENUE Emailed the pt. again information on ESTELLA : ESTRELLA MAURICE INFORMATION REFERRAL EXCHANGE for information and referrals, Agencies that assist with utilities and rent - [employer], [employer], list of Food Pantries [facility], [employer]or Technologist - [employer]. The pt. stated she was still on HCAP. The pt. thanked DIRECTOR OF REVENUE for her help and DIRECTOR OF REVENUE informed the pt. to call DIRECTOR OF REVENUE with any needs. [facility] Work Phone: [phone] Telephone encounter Note* Telephone Encounter - Shelia Blackmon RN - 11/22/2024 11:58 AM EDT Patient call in for increased depression and needing to be on something for this. Nurse Triage assessment completed with protocol recommending for disposition of see PCP in 24 hours. Patient scheduled to see Elena on 11/24/2024. Reason for Disposition [1] Depression AND [2] getting worse (e.g., sleeping poorly, less able to do activities of daily living) Answer Assessment - Initial Assessment Questions 1. CONCERN: Patient states that she has been depressed for awhile. Patient had appendicitis about a month ago. Patient has been off of work for about a month which has led her to be down 2. DEPRESSION SYMPTOM SCREENING: Patient states that she has been having issues with sleeping. Patient states that she is on the edge because she feels like she is losing everything 3. RISK OF HARM - SUICIDAL IDEATION: Denies 4. RISK OF HARM - HOMICIDAL IDEATION: Denies 5. FUNCTIONAL IMPAIRMENT: Having a hard time doing normal daily activities. 6. SUPPORT: Has her Sister and Mom but they do not live there. Patient is by herself everyday and she can't work 7. THERAPIST: Denies 8. STRESSORS: Unable to work due to appendicitis. Patient has abscess that they are trying to get rid of. 9. ALCOHOL USE OR SUBSTANCE USE (DRUG USE): Denies 10. OTHER: Denies Protocols used: [id number] [facility]03-25-2025 Miscellaneous Notes* Telephone Encounter - Shelia Blackmon RN - 11/22/2024 11:58 AM EDT Patient call in for increased depression and needing to be on something for this. Nurse Triage assessment completed with protocol recommending for disposition of see PCP in 24 hours. Patient scheduled to see Elena on 11/24/2024. Reason for Disposition [1] Depression AND [2] getting worse (e.g., sleeping poorly, less able to do activities of daily living) Answer Assessment - Initial Assessment Questions 1. CONCERN: Patient states that she has been depressed for awhile. Patient had appendicitis about a month ago. Patient has been off of work for about a month which has led her to be down 2. DEPRESSION SYMPTOM SCREENING: Patient states that she has been having issues with sleeping. Patient states that she is on the edge because she feels like she is losing everything 3. RISK OF HARM - SUICIDAL IDEATION: Denies 4. RISK OF HARM - HOMICIDAL IDEATION: Denies 5. FUNCTIONAL IMPAIRMENT: Having a hard time doing normal daily activities. 6. SUPPORT: Has her Sister and Mom but they do not live there. Patient is by herself everyday and she can't work 7. THERAPIST: Denies 8. STRESSORS: Unable to work due to appendicitis. Patient has abscess that they are trying to get rid of. 9. ALCOHOL USE OR SUBSTANCE USE (DRUG USE): Denies 10. OTHER: Denies Protocols used: [id number] documented in this encounterProtestant [facility]acon[facility]03-24-2025 Miscellaneous Notes* SN Routine IV care and labs - Berta West RN - 11/21/2024 8:51 AM EDT SITUATION: Half-Way routine IV for IV care and labs visit completed today. only patient present during today's visit. patient reports the following: Allergies--reviewed Medications--reviewed current medications Falls--None BACKGROUND: Reason for Home Care: post appy abscess ASSESSMENT: SN greeted at door by patient no DME and demonstrates stable gait. Patient appears in no acute distress. Patient/CG concerns verbalized today: no new concerns Vitals (see flow sheet for details): stable SN findings today: Pt ambulating in her home. She states other than being tired, she has been doingwell. No issues with infusions since SN vs last saw pt. Pt states that she has had some pain intermittently but has been tolerable. IV care completed with no issues or concerns noted or reported. See intervention summary for education details and skills performed. Plan of care, progress towards goals, and visit frequency reviewed with patient. Patient demonstrated a need for further skilled SN services for infusion care and labs. Current Discharge plan: self-care RECOMMENDATION: Next visit to focus on (be specific): PICC care and labs documented in this encounterProtestant [facility]acon[facility]03-24-2025 Patient's home Note* [facility] Routine IV care and labs - Berta West RN - 11/21/2024 8:51 AM EDT SITUATION: Half-Way routine IV for IV care and labs visit completed today. only patient present during today's visit. patient reports the following: Allergies--reviewed Medications--reviewed current medications Falls--None BACKGROUND: Reason for Home Care: post appy abscess ASSESSMENT: SN greeted at door by patient no DME and demonstrates stable gait. Patient appears in no acute distress. Patient/CG concerns verbalized today: no new concerns Vitals (see flow sheet for details): stable SN findings today: Pt ambulating in her home. She states other than being tired, she has been doingwell. No issues with infusions since SN vs last saw pt. Pt states that she has had some pain intermittently but has been tolerable. IV care completed with no issues or concerns noted or reported. See intervention summary for education details and skills performed. Plan of care, progress towards goals, and visit frequency reviewed with patient. Patient demonstrated a need for further skilled SN services for infusion care and labs. Current Discharge plan: self-care RECOMMENDATION: Next visit to focus on (be specific): PICC care and labs [facility] Work Phone: [phone] Telephone encounter Note* Telephone Encounter - Gail Gonzalez LPN - 11/18/2024 3:16 PM EDT Per Patricia--Getting a repeat CT scan and following up with Dr. Villa. In my discussion with him, itappeared that the patient is doing really well and was questioning why all the interventions were being done. I updated him that the abscess did not improve substantially with antibiotics and I was worried that we were failing treatment [facility]03-21-2025 Telephone encounter Note* Telephone Encounter - Gail Gonzalez LPN - 11/18/2024 10:11 AM EDT This week's labs were never done per our order. Hiro ordered a cbc w/diff yesterday at the appt which came back wnl. Orders given to nursing to make sure they obtain all labs on Thursday. [facility]03-20-2025 Telephone encounter Note* Telephone Encounter - Yolanda Terrell - 11/17/2024 1:[address] Bosch called and would like Dr Monique to call his cell so I put it out through perfect serve Yolanda Terrell [facility]03-20-2025 NoteHNO ID: [id number] Author: KUSHAL BOSCH MD Service: ? Author Type: Physician Type: Progress Notes Filed: 11/18/2024 22:03 Note Text: FOLLOW UP VISIT - APPENDICITIS NAME: Jenna Valadez [facility] NO.: [id number] DATE OF SERVICE: 11/17/2024 : 1970 REFERRING PHYSICIAN: Anmol Chen MD Jenna is a patient I am following for acute appendicitis. She presented with a 2-day history of initially vague abdominal pain but an elevated white count of 24,[address] scan demonstrating acute appendicitis I performed a laparoscopic appendectomy on October 25, 2024 for acute gangrenous perforated appendicitis. Pathology returned as: FINAL DIAGNOSIS A. Appendix, Appendectomy: - Acute necrotizing appendicitis with periappendicitis and serositis. She was initially discharged on October 27, 2024. She returned on October 30, 2024 with complaint of abdominal pain and bloating. CT scan demonstrated a periappendiceal postoperative abscess. IR was consulted but due to the location of the abscess it was felt not to be amenable to percutaneous drainage. She was admitted for IV antibiotics she was discharged to home on November 02, 2024 with IV recommendations to be discharged on a PICC line with IV antibiotics-ertapenem for 1 week. The patient currently notes no complaints. her appetite has been good. she denies fever, chills or abdominal pain. she does note some minimal incisional discomfort. VITALS: Blood pressure 100/64, pulse 119, temperature 36.8 ?C (98.3 ?F), temperature source Temporal Artery, resp. rate 16, weight 58.1 kg (128 lb), SpO2 99%. On examination, the abdomen is benign. The incisions are healing well without signs of infection or inflammation. There is no right lower quadrant tenderness. Assessment IMPRESSION: status post laparoscopic appendectomy for acute appendicitis PLAN: If the patient notes any problems or signs of wound infections, the patient should contact me immediately. she may return to her regular activities as tolerated. I have ordered a CT scan of the abdomen pelvis to be obtained which will hopefully show improvement in her collection. If not she may be sent for IR drainage. Diagnoses: (K65.9) Infection in abdomen (HCC) (primary encounter diagnosis) (K35.32) Perforated appendicitis Return to Clinic: The patient is instructed to follow-up with me as needed. [facility] History of Present illness Narrative* Kushal Bosch MD - 11/17/2024 12:26 PM EDT FOLLOW UP VISIT - APPENDICITIS NAME: Jenna Valadez [facility] NO.: [id number] DATE OF SERVICE: 11/17/2024 : 1970 REFERRING PHYSICIAN: Anmol Chen MD Jenna is a patient I am following for acute appendicitis. She presented with a 2-day history of initially vague abdominal pain but an elevated white count of 24,[address] scan demonstrating acute appendicitis I performed a laparoscopic appendectomy on October 25, 2024 for acute gangrenous perforated appendicitis. Pathology returned as: FINAL DIAGNOSIS A. Appendix, Appendectomy: - Acute necrotizing appendicitis with periappendicitis and serositis. She was initially discharged on October 27, 2024. She returned on October 30, 2024 with complaint of abdominal pain and bloating. CT scan demonstrated aperiappendiceal postoperative abscess. IR was consulted but due to the location of the abscess it was felt not to be amenable to percutaneous drainage. She was admitted for IV antibiotics she was discharged to home on November 02, 2024 with IV recommendations to be discharged on a PICC line with IV antibiotics-ertapenem for 1 week. The patient currently notes no complaints. her appetite has been good. she denies fever, chills or abdominal pain. she does note some minimal incisional discomfort. VITALS: Blood pressure 100/64, pulse 119, temperature 36.8 C (98.3 F), temperature source Temporal Artery, resp. rate 16, weight 58.1 kg (128 lb), SpO2 99%. On examination, the abdomen is benign. The incisions are healing well without signs of infection orinflammation. There is no right lower quadrant tenderness. Assessment IMPRESSION: status post laparoscopic appendectomy for acute appendicitis PLAN: If the patient notes any problems or signs of wound infections, the patient should contact me immediately. she may return to her regular activities as tolerated. I have ordered a CT scan of the abdomen pelvis to be obtained which will hopefully show improvementin her collection. If not she may be sent for IR drainage. Diagnoses: (K65.9) Infection in abdomen (HCC) (primary encounter diagnosis) (K35.32) Perforated appendicitis Return to Clinic: The patient is instructed to follow-up with me as needed. Kushal Bosch MD documented in this encounterProtest[facility]acon[facility]03-19-2025 NoteHNO ID: [id number] Author: ANMOL CHEN MD Service: ? Author Type: Physician Type: Progress Notes Filed: 11/16/2024 09:35 Note Text: Patient's home health 485 form / care plan for certification period 11/03/2024 to 01/01/2025 reviewed and signed. Relevant medical records were reviewed. No changes were indicatedSam[facility]03-19-[facility] History of Present illness Narrative* Anmol Chen MD - 11/16/2024 9:34 AM EDT Patient's home health 485 form / care plan for certification period 11/03/2024 to 01/01/2025 reviewed and signed. Relevant medical records were reviewed. No changes were indicated documented in this encounterProtestant [facility]acon[facility] Hospital03-19-2025 Miscellaneous Notes* SN ROUTINE IV EDUCATION - Berta West RN - 11/16/2024 8:46 AM EDT SITUATION: Half-Way routine IV visit focused on IV infusion education completed today. only patient present during today's visit. patient reports the following: reports the following changes since the last homecare visit: Allergies--reviewed Medications--reviewed current medications Falls--None BACKGROUND: Reason for Home Care: post appy abscess, home infusion ASSESSMENT: SN greeted at door by patient no DME and demonstrates stable gait. Patient appears in no acute distress. During visit, patient demonstrated independence with IV infusion and requires no further visits forIV infusion instructions. Patient/CG concerns verbalized today: no special concerns. Vitals (see flow sheet for details): stable SN findings today: Pt ambulating in the home. SN assisted pt with setting up IV Merospenum, pt was pretty much independent since this is very similiar to the process of the ertapenum. She flushed PICC and connected infusion, SN instructed on new drip rate. At the end of the infusion, SN assisted ptwith applying end cap to save tubing for the day. SN then assisted pt with preparing and hanging the Vancomycin (pt took the benadryl 30 minutes prior). Other than feeling tired, pt did not c/o any adverse effects during the Vanco infusion. Vitals were stable during the infusion and pt reports thatshe feels better during the Vanco infusion. Pt instructed on take down of the IV Vanco and she demonstrates independence. She does not feel that she will need any more vs for [facility]usions [facility] SN left extensive written instructions for pt and she verbalizes that she will call if needed. See intervention summary for education details and skills performed. Plan of care, progress towards goals, and visit frequency reviewed with patient. Patient demonstrated a need for further skilled SN services for infusion care and labs Current Discharge plan: self-care RECOMMENDATION: Next visit to focus on (be specific): Pt feels that she is able to do her IV's and will need weeklyvs for PICC care and labs. documented in this encounterProtestant [facility]acon[facility]03-19-2025 Patient's home Note* SN ROUTINE IV EDUCATION - Berta West RN - 11/16/2024 8:46 AM EDT SITUATION: Half-Way routine IV visit focused on IV infusion education completed today. only patient present during today's visit. patient reports the following: reports the following changes since the last homecare visit: Allergies--reviewed Medications--reviewed current medications Falls--None BACKGROUND: Reason for Home Care: post appy abscess, home infusion ASSESSMENT: SN greeted at door by patient no DME and demonstrates stable gait. Patient appears in no acute distress. During visit, patient demonstrated independence with IV infusion and requires no further visits forIV infusion instructions. Patient/CG concerns verbalized today: no special concerns. Vitals (see flow sheet for details): stable SN findings today: Pt ambulating in the home. SN assisted pt with setting up IV Merospenum, pt was pretty much independent since this is very similiar to the process of the ertapenum. She flushed PICC and connected infusion, SN instructed on new drip rate. At the end of the infusion, SN assisted ptwith applying end cap to save tubing for the day. SN then assisted pt with preparing and hanging the Vancomycin (pt took the benadryl 30 minutes prior). Other than feeling tired, pt did not c/o any adverse effects during the Vanco infusion. Vitals were stable during the infusion and pt reports thatshe feels better during the Vanco infusion. Pt instructed on take down of the IV Vanco and she demonstrates independence. She does not feel that she will need any more vs for IV infusions and [facility] SN left extensive written instructions for pt and she verbalizes that she will call if needed. See intervention summary for education details and skills performed. Plan of care, progress towards goals, and visit frequency reviewed with patient. Patient demonstrated a need for further skilled SN services for infusion care and labs Current Discharge plan: self-care RECOMMENDATION: Next visit to focus on (be specific): Pt feels that she is able to do her IV's and will need weeklyvs for PICC care and labs. [facility] Work Phone: [phone] Telephone encounter Note* Telephone Encounter - Gail Gonzalez LPN - 11/15/2024 3:44 PM EDT Orders given to Jenna to take 50mg po Benadryl prior to infusing the vanc [facility]03-18-2025 Telephone encounter Note* Telephone Encounter - Bisi Griffith - 11/15/2024 2:36 PM EDT Update from Thi, patient completed infusions and did well. Symptoms resolved and patient d/c to home. [facility]03-18-2025 Telephone encounter Note* Telephone Encounter - Bisi Griffith - 11/15/2024 1:29 PM EDT [facility] Thi just called reporting patient c/o internal itching. Thi will follow reaction protocol and monitor for improvement. Will continue infusion and notify office with changes. [facility]03-18-2025 Nurse Note* Thi Gudino, RN - 11/15/2024 1:18 PM EDT Pt c/o mild itching inside 30 min after starting vanco, vss, alert, no resp distress noted, Dr monique office called and informed. Was instructed to given solumedrol and benadryl and continue vanco. 1348 vss, alert, no resp distress noted, itching not as bad [facility]03-18-2025 Nurse Note* Thi Gudino, EL - 11/15/2024 1:18 PM EDT Pt c/o mild itching inside 30 min after starting vanco, vss, alert, no resp distress noted, Dr monique office called and informed. Was instructed to given solumedrol and benadryl and continue vanco. 1348 vss, alert, no resp distress noted, itching not as bad documented in this encounterProtestant Deaconess Hospital03-18-2025 Telephone encounter Note * Telephone Encounter - Yolanda Terrell - 11/15/2024 1:10 PM EDT Jenna called needs a basic letter for work that she is on IV until 11/29/24 Yolanda Terrell [facility]03-18-2025 Telephone encounter Note* Telephone Encounter - Charleen - 11/15/2024 1:03 PM EDT Record ID: [id number] Patient name: Jenna Valadez Date: November 15, 2024 - 08:03 Administered by: CHARLEEN Protocol: -> Great! Now we are in a secure chat environment. Protecting your health information is important to us. Ok, let's get started. Please verify your name and date of . Please click on the button with your first name. -> Jenna Got it. On to the next question... Select the button with your last name. -> Rory Got it, thank you. Please enter your date of in MM/DD/YYYY format:(e.g., 09/18/1969 for Sep 18, 1971) -> 1970 Thank you for verifying your information. I'd like to ask you a few questions about how your recovery is going. Since leaving the hospital, do you have any new or worsening symptoms? -> No I'm glad to hear that. We encourage a follow-up appointment with a provider to oversee your recovery. It appears that you do not have a follow-up appointment with a provider. Please contact the 23/03 Appointment Center at [ ](tel: ) to schedule a follow-up appointment. Thank you for your time andallowing us to care for you. We will check in on you over the next four weeks to ensure you continue to recover and support your needs. In the meantime, please reach out to your PCP for any questionsor concerns.Thank you for choosing [facility]! -> Thank you for your time and allowing us to care for you. We will check in on you over the next fourweeks to ensure you continue to recover and support your needs. In the meantime, please reach out to your PCP for any questions or concerns.Thank you for choosing [facility]! -> Great! Now we are in a secure chat environment. Protecting your health information is important to us. Ok, let's get started. Please verify your name and date of . Please click on the button with your first name. -> Jenna Got it. On to the next question... Select the button with your last name. -> Rory Got it, thank you. Please enter your date of in MM/DD/YYYY format:(e.g., 09/18/1969 for Sep 18, 1971) -> 1970 Thank you for verifying your information. I'd like to ask you a few questions about how your recovery is going. Have you experienced any new or worsening symptoms since returning home? -> No I'm glad to hear that. Have you had a hospital follow-up appointment yet since your discharge? -> Yes Thank you for your time and allowing us to care for you. We will check in on you over the next fourweeks to ensure you continue to recover and support your needs. In the meantime, please reach out to your PCP for any questions or concerns.Thank you for choosing [facility]! -> Great! Now we are in a secure chat environment. Protecting your health information is important to us. Ok, let's get started. Please verify your name and date of . Please click on the button with your first name. -> Jenna Got it. On to the next question... Select the button with your last name. -> Rory Got it, thank you. Please enter your date of in MM/DD/YYYY format:(e.g., 09/18/1969 for Sep 18, 1971) -> 1970 Thank you for verifying your information. I'd like to ask you a few questions about how your recovery is going. Have there been any new or worsening symptoms since your last response? -> No I'm glad to hear that. Thank you for your time and for allowing us to care for you. Please be sure to reach out to your provider for any further symptoms or needs. Please rate your satisfaction with the care and support you have received from us since you have been home: (scale 1-5; 1 worst and 5 best) -> 4 Please tell me what you liked best about your experience: -> someone checking in on me Please tell me what you liked least about your experience: -> I don't know [facility]03-18-2025 Miscellaneous Notes* Telephone Encounter - Charleen - 11/15/2024 1:03 PM EDT Record ID: [id number] Patient name: Jenna Valadez Date: November 15, 2024 - 08:03 Administered by: CHARLEEN Protocol: -> Great! Now we are in a secure chat environment. Protecting your health information is important to us. Ok, let's get started. Please verify your name and date of . Please click on the button with your first name. -> Jenna Got it. On to the next question... Select the button with your last name. -> Rory Got it, thank you. Please enter your date of in MM/DD/YYYY format:(e.g., 09/18/1971 for Sep 18, 1971) -> 1970 Thank you for verifying your information. I'd like to ask you a few questions about how your recovery is going. Since leaving the hospital, do you have any new or worsening symptoms? -> No I'm glad to hear that. We encourage a follow-up appointment with a provider to oversee your recovery. It appears that you do not have a follow-up appointment with a provider. Please contact the 23/03 Appointment Center at [ ](tel: ) to schedule a follow-up appointment. Thank you for your time andallowing us to care for you. We will check in on you over the next four weeks to ensure you continue to recover and support your needs. In the meantime, please reach out to your PCP for any questionsor concerns.Thank you for choosing [facility]! -> Thank you for your time and allowing us to care for you. We will check in on you over the next fourweeks to ensure you continue to recover and support your needs. In the meantime, please reach out to your PCP for any questions or concerns.Thank you for choosing [facility]! -> Great! Now we are in a secure chat environment. Protecting your health information is important to us. Ok, let's get started. Please verify your name and date of . Please click on the button with your first name. -> Jenna Got it. On to the next question... Select the button with your last name. -> Rory Got it, thank you. Please enter your date of in MM/DD/YYYY format:(e.g., 09/18/1969 for Sep 18, 1969) -> 1970 Thank you for verifying your information. I'd like to ask you a few questions about how your recovery is going. Have you experienced any new or worsening symptoms since returning home? -> No I'm glad to hear that. Have you had a hospital follow-up appointment yet since your discharge? -> Yes Thank you for your time and allowing us to care for you. We will check in on you over the next fourweeks to ensure you continue to recover and support your needs. In the meantime, please reach out to your PCP for any questions or concerns.Thank you for choosing [facility]! -> Great! Now we are in a secure chat environment. Protecting your health information is important to us. Ok, let's get started. Please verify your name and date of . Please click on the button with your first name. -> Jenna Got it. On to the next question... Select the button with your last name. -> Valadez Got it, thank you. Please enter your date of in MM/DD/YYYY format:(e.g., 09/18/1969 for Sep 18, 1969) -> 1970 Thank you for verifying your information. I'd like to ask you a few questions about how your recovery is going. Have there been any new or worsening symptoms since your last response? -> No I'm glad to hear that. Thank you for your time and for allowing us to care for you. Please be sure to reach out to your provider for any further symptoms or needs. Please rate your satisfaction with the care and support you have received from us since you have been home: (scale 1-5; 1 worst and 5 best) -> 4 Please tell me what you liked best about your experience: -> someone checking in on me Please tell me what you liked least about your experience: -> I don't know documented [facility]Pro[facility] Telephone encounter Note * Telephone Encounter - Gail Gonzalez LPN - 11/11/2024 3:39 PM EDT NEW STOP DATE IS NOVEMBER 29 The first dose is scheduled for November 15 [facility] 12:30 The new stop date will be November 29 Darryl with [facility] was made aware [facility]03-14-2025 Telephone encounter Note* Telephone Encounter - Gail Gonzalez LPN - 11/11/2024 1:31 PM EDT MED CHANGE, NEW STOP DATE Per Patricia--Stop Ertapenem. Start Meropenem 1g Iv q8. Also start vancomycin 1 g iv q12 x2 weeks. Sheappears to be failing antibiotics. Needs to revisit with surgery to see if surgery is an option. Also order an interventional radiology guided drain for the abscess and a repeat CT scan at the end. Above orders given to Darryl with [facility] and to Adela with [facility]. The first dose order was faxed to [facility]. The f/u appt with the surgeon (Dr Bosch) is November 17. The CT order and the guided drain order will be placed in [facility]. Jenna is aware of the above. [facility]03-13-2025 Telephone encounter Note* Telephone Encounter - Gail Gonzalez LPN - 11/10/2024 11:57 AM EDT [facility] November 07 labs reviewed in [facility] EM Patricia--Jenna's November 07 plt came back elevated at 630 (514) and the stop date is Sat. Please review the copat, CT, and lab results. What would you like to do? [facility]03-13-2025 Telephone encounter Note* Telephone Encounter - Kirstin Wallace MA - 11/10/2024 9:44 AM EDT Pt notified and verbalized understanding Kirstin Wallace MA [facility]03-13-2025 Miscellaneous Notes* Telephone Encounter - Kirstin Wallace MA - 11/10/2024 9:44 AM EDT Pt notified and verbalized understanding Kirstin Wallace MA * Telephone Encounter - Elena Isbell APRN.ESRVANDO - 11/10/2024 7:36 AM EDT Please let patient know her potassium is stable. Recommend repeat in 1 month. If still normal at that time no further lab testing needed. documented in this encounterProtest[facility]03-13-2025 Telephone encounter Note * Telephone Encounter - Elena Isbell APRN.CNP - 11/10/2024 7:36 AM EDT Please let patient know her potassium is stable. Recommend repeat in 1 month. If still normal at that time no further lab testing needed. [facility]03-12-2025 Telephone encounter Note* Telephone Encounter - Shellie Ruiz RN - 11/09/2024 11:41 AM EDT Pt called and is notified of providers message and instructions. Pt voices understanding. Canceled f/u appointment to go over results. Shellie Ruiz RN [facility]03-12-2025 Miscellaneous Notes* Telephone Encounter - Shellie Ruiz RN - 11/09/2024 11:41 AM EDT Pt called and is notified of providers message and instructions. Pt voices understanding. Canceled f/u appointment to go over results. Shellie Ruiz RN * Telephone Encounter - Elena Isbell APRN.CNP - 11/08/2024 11:50 AM EDT Please let patient know they did not run her potassium so she will need to get another blood draw. Also she does not need a follow up visit just for the potassium. I will call her with results. documented in this encounterProtest[facility]03-11-2025 Telephone encounter Note * Telephone Encounter - Charleen - 11/08/2024 1:03 PM EDT Record ID: [id number] Patient name: Jenna Valadez Date: November 08, 2024 - 08:03 Administered by: CHARLEEN Protocol: -> Great! Now we are in a secure chat environment. Protecting your health information is important to us. Ok, let's get started. Please verify your name and date of . Please click on the button with your first name. -> Jenna Got it. On to the next question... Select the button with your last name. -> Rory Got it, thank you. Please enter your date of in MM/DD/YYYY format:(e.g., 09/18/1971 for Sep 18, 1971) -> 1970 Thank you for verifying your information. I'd like to ask you a few questions about how your recovery is going. Since leaving the hospital, do you have any new or worsening symptoms? -> No I'm glad to hear that. We encourage a follow-up appointment with a provider to oversee your recovery. It appears that you do not have a follow-up appointment with a provider. Please contact the 23/03 Appointment Center at [ ](tel: ) to schedule a follow-up appointment. Thank you for your time andallowing us to care for you. We will check in on you over the next four weeks to ensure you continue to recover and support your needs. In the meantime, please reach out to your PCP for any questionsor concerns.Thank you for choosing [facility]! -> Thank you for your time and allowing us to care for you. We will check in on you over the next fourweeks to ensure you continue to recover and support your needs. In the meantime, please reach out to your PCP for any questions or concerns.Thank you for choosing [facility]! -> Great! Now we are in a secure chat environment. Protecting your health information is important to us. Ok, let's get started. Please verify your name and date of . Please click on the button with your first name. -> Jenna Got it. On to the next question... Select the button with your last name. -> Rory Got it, thank you. Please enter your date of in MM/DD/YYYY format:(e.g., 09/18/1971 for Sep 18, 1971) -> 1970 Thank you for verifying your information. I'd like to ask you a few questions about how your recovery is going. Have you experienced any new or worsening symptoms since returning home? -> No I'm glad to hear that. Have you had a hospital follow-up appointment yet since your discharge? -> Yes [facility]03-11-2025 Miscellaneous Notes* Telephone Encounter - Charleen - 11/08/2024 1:03 PM EDT Record ID: [id number] Patient name: Jenna Valadez Date: November 08, 2024 - 08:03 Administered by: CHARLEEN Protocol: -> Great! Now we are in a secure chat environment. Protecting your health information is important to us. Ok, let's get started. Please verify your name and date of . Please click on the button with your first name. -> Jenna Got it. On to the next question... Select the button with your last name. -> Rory Got it, thank you. Please enter your date of in MM/DD/YYYY format:(e.g., 09/18/1971 for Sep 18, 1969) -> 1970 Thank you for verifying your information. I'd like to ask you a few questions about how your recovery is going. Since leaving the hospital, do you have any new or worsening symptoms? -> No I'm glad to hear that. We encourage a follow-up appointment with a provider to oversee your recovery. It appears that you do not have a follow-up appointment with a provider. Please contact the 23/03 Appointment Center at [ ](tel: ) to schedule a follow-up appointment. Thank you for your time andallowing us to care for you. We will check in on you over the next four weeks to ensure you continue to recover and support your needs. In the meantime, please reach out to your PCP for any questionsor concerns.Thank you for choosing [facility]! -> Thank you for your time and allowing us to care for you. We will check in on you over the next fourweeks to ensure you continue to recover and support your needs. In the meantime, please reach out to your PCP for any questions or concerns.Thank you for choosing [facility]! -> Great! Now we are in a secure chat environment. Protecting your health information is important to us. Ok, let's get started. Please verify your name and date of . Please click on the button with your first name. -> Jenna Got it. On to the next question... Select the button with your last name. -> Rory Got it, thank you. Please enter your date of in MM/DD/YYYY format:(e.g., 09/18/1971 for Sep 18, 1971) -> 1970 Thank you for verifying your information. I'd like to ask you a few questions about how your recovery is going. Have you experienced any new or worsening symptoms since returning home? -> No I'm glad to hear that. Have you had a hospital follow-up appointment yet since your discharge? -> Yes documented in this encounterProtest[facility]03-11-2025 Telephone encounter Note * Telephone Encounter - Elena Isbell APRN.CNP - 11/08/2024 11:50 AM EDT Please let patient know they did not run her potassium so she will need to get another blood draw. Also she does not need a follow up visit just for the potassium. I will call her with results. [facility] Work Phone: [phone] 748-287403-10-2025 Miscellaneous Notes* SN Routine IV - Alexandra Ayoub RN - 11/07/2024 11:36 AM EDT SITUATION: Half-Way routine IV visit completed today. only patient also present during today's visit. patient reports the following: Allergies--reviewed Medications--reviewed current medications Falls--None BACKGROUND: Reason for Home Care: IV ATB education, PICC care, labs ASSESSMENT: SN greeted at door by patient no DME and demonstrates stable gait. Patient appears in no acute distress. During visit, patient demonstrated independence with IV infusion and requires no further visits forIV infusion instructions. Patient/CG concerns verbalized today: none Vitals (see flow sheet for details): stable SN finding today: Patient A&OX4, pleasant and cooperative with SN assessment. Patient states she ran her IV independently with no issues. Patient has steri strips to abdomen intact, SN educated patient on S&S of infection and when to report concerns. PICC line dressing changed per POC and labs obtained without diffiuclty. SN educated patient on high protein diet. Sn educated patient on S&a mp;S of sepsis and UTI. No other questions or concerns at this time. See intervention summary for education details and skills performed. Plan of care, progress towards goals, and visit frequency reviewed with patient. Patient demonstrated a need for further skilled SN services for chronic disease management & education, medication education, wound/skin care, infusion care, labs and safety Current Discharge plan: self-care and family support Next vist to focus on:PICC care, labs, incision assessment. documented in this encounterProtest[facility]03-10-2025 Patient's home Note* SN Routine IV - Alexandra Ayoub RN - 11/07/2024 11:36 AM EDT SITUATION: Half-Way routine IV visit completed today. only patient also present during today's visit. patient reports the following: Allergies--reviewed Medications--reviewed current medications Falls--None BACKGROUND: Reason for Home Care: IV ATB education, PICC care, labs ASSESSMENT: SN greeted at door by patient no DME and demonstrates stable gait. Patient appears in no acute distress. During visit, patient demonstrated independence with IV infusion and requires no further visits forIV infusion instructions. Patient/CG concerns verbalized today: none Vitals (see flow sheet for details): stable SN finding today: Patient A&OX4, pleasant and cooperative with SN assessment. Patient states she ran her IV independently with no issues. Patient has steri strips to abdomen intact, SN educated patient on S&S of infection and when to report concerns. PICC line dressing changed per POC and labs obtained without diffiuclty. SN educated patient on high protein diet. Sn educated patient on S&a mp;S of sepsis and UTI. No other questions or concerns at this time. See intervention summary for education details and skills performed. Plan of care, progress towards goals, and visit frequency reviewed with patient. Patient demonstrated a need for further skilled SN services for chronic disease management & education, medication education, wound/skin care, infusion care, labs and safety Current Discharge plan: self-care and family support Next vist to focus on:PICC care, labs, incision assessment. [facility] Work Phone: 1(228) 371-829703-10-2025 Telephone encounter Note* Telephone Encounter - Yaritza Izquierdo LSW - 11/07/2024 9:58 AM EDT 11/07/24 DIRECTOR OF REVENUE called the pt. regarding DIRECTOR OF REVENUE visit and community resources. The pt. stated she was going to return back to work today and she how she does. The pt. stated she is concerned about her medical bills. DIRECTOR OF REVENUE asked the pt. if she applied for Medicaid and she stated that she did but did not qualify due to her working and her income. 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 She stated the Nurse is to come today and she stated she has to be there at 1 PM. SW asked the pt. if she needed help with her care and denied that she did. DIRECTOR OF REVENUE asked the pt. about transportation and the pt. stated she was able to drive herself. The pt. is on [employer] and DIRECTOR OF REVENUE askd the pt. if she spoke to a [facility] Store Standards Associate and she stated she has. The pt. is worrried about personal loan she hasof $500 a month and she has her lot rent which includes some utitlies per the pt. The pt. stated she may have to file bankruptcy. DIRECTOR OF REVENUE educated on Agencies that may assist with her lot rent and utilities and educated on Community Geodetic Surveyor Technologist. The pt. stated she has to take care of her client today. The pt. wanted DIRECTOR OF REVENUE to Email her information. Her Email: [email or web address]. The pt. wants to seehow she does at work today. DIRECTOR OF REVENUE provided the pt. with her name and phone number. DIRECTOR OF REVENUE will follow-upwith the pt. 11/07/24 DIRECTOR OF REVENUE Emailed the pt. information on [employer] : ESTRELLA MAURICE INFORMATION REFERRAL EXCHANGE for information and referrals, Agencies that assist with utilities and rent - [employer] [place], [employer], list of Food Pantries in [facility], Community Geodetic Surveyor Technologist - ESTRELLA.Thank You, [facility] Work Phone: [phone] Miscellaneous Notes* Telephone Encounter - Yaritza Izquierdo LSW - 11/07/2024 9:58 AM EDT 11/07/24 DIRECTOR OF REVENUE called the pt. regarding DIRECTOR OF REVENUE visit and community resources. The pt. stated she was going to return back to work today and she how she does. The pt. stated she is concerned about her medical bills. DIRECTOR OF REVENUE asked the pt. if she applied for Medicaid and she stated that she did but did not qualify due to her working and her income. 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 She stated the Nurse is to come today and she stated she has to be there at 1 PM. [facility] asked the pt. if she needed help with her care and denied that she did. DIRECTOR OF REVENUE asked the pt. about transportation and the pt. stated she was able to drive herself. The pt. is on [employer] and DIRECTOR OF REVENUE askd the pt. if she spoke to a [facility] Store Standards Associate and she stated she has. The pt. is worrried about personal loan she hasof $500 a month and she has her lot rent which includes some utitlies per the pt. The pt. stated she may have to file bankruptcy. DIRECTOR OF REVENUE educated on Agencies that may assist with her lot rent and utilities and educated on Community Geodetic Surveyor Technologist. The pt. stated she has to take care of her client today. The pt. wanted DIRECTOR OF REVENUE to Email her information. Her Email: [email or web address]. The pt. wants to seehow she does at work today. DIRECTOR OF REVENUE provided the pt. with her name and phone number. DIRECTOR OF REVENUE will follow-upwith the pt. 11/07/24 DIRECTOR OF REVENUE Emailed the pt. information on [employer] : ESTRELLA CLEMENTSES INFORMATION REFERRAL EXCHANGE for information and referrals, Agencies that assist with utilities and rent - [employer], [employer], list of Food Pantries in [facility], Community Geodetic Surveyor Technologist - ESTRELLA.Thank You, documented in this encounterProtestant [facility]03-10-2025 Miscellaneous Notes* HH CARE COORDINATION - Yaritza Izquierdo LSW - 11/07/2024 9:15 AM EDT 11/07/24 9:18 AM - 9:26 AM DIRECTOR OF REVENUE called the pt. regarding DIRECTOR OF REVENUE visit and community resources. The pt. stated she was going to return back to work today and she how she does. The pt. stated she is concerned about her medical bills. DIRECTOR OF REVENUE asked the pt. if she applied for Medicaid and she stated that she did but did not qualify due to her working and her income. 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 She stated the Nurse is to come today and she stated she has to be there at 1 PM. SW asked the pt. if she needed help with her care and denied that she did. DIRECTOR OF REVENUE asked the pt. about transportation and the pt. stated she was able to drive herself. The pt. is on [employer] and DIRECTOR OF REVENUE askd the pt. if she s poke to a [facility] [employer] Standards [employer] and she stated she has. The pt. is worrried about personal loan she has of $500 a month and she has her lot rent which includes some utitlies per the pt.The pt. stated she may have to file bankruptcy. DIRECTOR OF REVENUE educated on Agencies that may assist with her lot rent and utilities and educated on Community Geodetic Surveyor Technologist. The pt. stated she has to take care of her client today. The pt. wanted DIRECTOR OF REVENUE to Email her information. Her Email: [email or web address]. The pt. wants to see how she does at work today. DIRECTOR OF REVENUE provided the pt. with her name and phone number. DIRECTOR OF REVENUE will follow-up with the pt. 11/07/24 DIRECTOR OF REVENUE spoke with Sean Clemens RN Case Manager regarding DIRECTOR OF REVENUE phone call with the pt. and she is planning to return to work today and see how she does. 11/07/24 9:44 AM DIRECTOR OF REVENUE Emailed the pt. information on [employer] : [employer] INFORMATION REFERRAL EXCHANGE for information and referrals, Agencies that assist with utilities and rent - [employer], [employer], list of Food Pantries in [facility], Community Geodetic Surveyor Technologist - [employer]. 11/07/[address] Anmol Chen - DIRECTOR OF REVENUE phone call with the pt. and that DIRECTOR OF REVENUE Emailed the pt. information on WH[employer] : [employer] INFORMATION REFERRAL EXCHANGE for information and referrals, Agencies that assist with utilities and rent - [employer], [employer], list of Food Pantries in [facility] Community Geodetic Surveyor Technologist - [employer]. documented in this encounterProtest[facility] Patient's home Note* HH CARE COORDINATION - Yaritza Izquierdo LSW - 11/07/2024 9:15 AM EDT 11/07/24 9:18 AM - 9:26 AM DIRECTOR OF REVENUE called the pt. regarding DIRECTOR OF REVENUE visit and community resources. The pt. stated she was going to return back to work today and she how she does. The pt. stated she is concerned about her medical bills. DIRECTOR OF REVENUE asked the pt. if she applied for Medicaid and she stated that she did but did not qualify due to her working and her income. 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 She stated the Nurse is to come today and she stated she has to be there at 1 PM. LLSW asked the pt. if she needed help with her care and denied that she did. DIRECTOR OF REVENUE asked the pt. about transportation and the pt. stated she was able to drive herself. The pt. is on [employer] and DIRECTOR OF REVENUE askd the pt. if she s poke to a [facility] [employer] Standards [employer] and she stated she has. The pt. is worrried about personal loan she has of $500 a month and she has her lot rent which includes some utitlies per the pt.The pt. stated she may have to file bankruptcy. DIRECTOR OF REVENUE educated on Agencies that may assist with her lot rent and utilities and educated on Community Geodetic Surveyor Technologist. The pt. stated she has to take care of her client today. The pt. wanted DIRECTOR OF REVENUE to Email her information. Her Email: [email or web address] The pt. wants to see how she does at work today. DIRECTOR OF REVENUE provided the pt. with her name and phone number. DIRECTOR OF REVENUE will follow-up with the pt. 11/07/24 DIRECTOR OF REVENUE spoke with Sean Clemens RN Case Manager regarding DIRECTOR OF REVENUE phone call with the pt. and she is planning to return to work today and see how she does. 11/07/24 9:44 AM DIRECTOR OF REVENUE Emailed the pt. information on WH[employer] : [employer] REFERRAL EXCHANGE for information and referrals, Agencies that assist with utilities and rent - [employer], [employer], list of Food Pantries in [facility] Geodetic Surveyor Technologist - [employer]. 11/07/[address] Anmol Chen - [facility] phone call with the pt. and that DIRECTOR OF REVENUE Emailed the pt. information on WHIRE : [employer]FORMATION REFERRAL EXCHANGE for information and referrals, Agencies that assist with utilities and rent - [employer], [employer], list of Food Pantries in [facility] Geodetic Surveyor Technologist - [employer]. [facility] Work Phone: [phone]) 810-683503-09-2025 Miscellaneous Notes* SN Routine IV - Isamar Chang RN - 11/06/2024 12:00 PM EDT SITUATION: Half-Way routine IV visit completed today. only patient also present during today's visit. patient reports the following: Allergies--reviewed Medications--reviewed current medications Falls--None BACKGROUND: Reason for Home Care: IV abx ASSESSMENT: SN greeted at door by patient no DME and demonstrates stable gait. Patient appears in no acute distress. During visit, patient demonstrated independence with IV infusion and requires no further visits forIV infusion instructions. Patient/CG concerns verbalized today: patient feeling ok; Vitals (see flow sheet for details): WDL except: Heart Rate: 112 SN findings today: patient able to independently flush and infuse her antibiotic; patient worried about being able to work; denies any n/v/d/sob/cp/fever or chills. See intervention summary for education details and skills performed. Plan of care, progress towards goals, and visit frequency reviewed with patient. Patient demonstrated a need for further skilled SN services for chronic disease management & education, medication education, wound/skin care, infusion care and safety Current Discharge plan: self-care RECOMMENDATION: Next visit to focus on (be specific): iv infusion, labs documented in this encounterProtest[facility]03-09-[facility]25 Patient's home Note* SN Routine IV - Isamar Chang RN - 11/06/2024 12:00 PM EDT SITUATION: Half-Way routine IV visit completed today. only patient also present during today's visit. patient reports the following: Allergies--reviewed Medications--reviewed current medications Falls--None BACKGROUND: Reason for Home Care: IV abx ASSESSMENT: SN greeted at door by patient no DME and demonstrates stable gait. Patient appears in no acute distress. During visit, patient demonstrated independence with IV infusion and requires no further visits forIV infusion instructions. Patient/CG concerns verbalized today: patient feeling ok; Vitals (see flow sheet for details): WDL except: Heart Rate: 112 SN findings today: patient able to independently flush and infuse her antibiotic; patient worried about being able to work; denies any n/v/d/sob/cp/fever or chills. See intervention summary for education details and skills performed. Plan of care, progress towards goals, and visit frequency reviewed with patient. Patient demonstrated a need for further skilled SN services for chronic disease management & education, medication education, wound/skin care, infusion care and safety Current Discharge plan: self-care RECOMMENDATION: Next visit to focus on (be specific): iv infusion, labs [facility] Work Phone: [phone] Telephone encounter Note* Telephone Encounter - Dyan Olmos RN - 11/05/2024 12:34 PM EST During SNV today patient's HR 102. Patient states that that is normal for her. Previous charting shows that patient's HR has been over 100 since discharge. Thank you, Dyan Olmos RN [facility] Work Phone: 1(360) 402-553403-08-2025 Miscellaneous Notes* Telephone Encounter - Dyan Olmos RN - 11/05/2024 12:34 PM EST During SNV today patient's HR 102. Patient states that that is normal for her. Previous charting shows that patient's HR has been over 100 since discharge. Thank you, Dyan Olmos RN documented in this encounterProtestant [facility]acon[facility]03-08-2025 Miscellaneous Notes* SN Routine IV - Dyan Olmos RN - 11/05/2024 11:56 AM EST SITUATION: Half-Way routine IV visit completed today. only patient also present during today's visit. patient reports the following: Allergies--reviewed Medications--reviewed current medications Falls--None BACKGROUND: Reason for Home Care: Infection following a procedure, organ and space surgical site, initial encounter ASSESSMENT: SN greeted at door by patient no DME and demonstrates stable gait. Patient appears in no acute distress. During visit, patient demonstrated need for continued IV infusion education and needs further instructions focused on IV ATB administration. Patient/CG concerns verbalized today: none Vitals (see flow sheet for details): WDL except: Heart Rate: 102 SN findings today: A&Ox4. Nonlabored breathing on room air; lungs clear throughout. Patient denies SOB. Tachycardic; Dr. Chen notified. BSPx4. Patient states that BM are soft and formed. No edema noted. SN reviewed s/s of infection and reviewed wound care. RU PICC noted without complications.SN guided patient through IV ATB administration. Patient remains anxious about IV setup and is missing a few steps in the process; patient is not yet independent with administration. See intervention summary for education details and skills performed. Plan of care, progress towards goals, and visit frequency reviewed with patient. Patient demonstrated a need for further skilled SN services for wound/skin care, infusion care and labs Current Discharge plan: self-care RECOMMENDATION: Next visit to focus on (be specific): PICC care and labs documented in this encounterProtestant [facility]acon[facility]03-08-2025 Patient's home Note* [facility] Routine IV - Dyan Olmos RN - 11/05/2024 11:56 AM EST SITUATION: Half-Way routine IV visit completed today. only patient also present during today's visit. patient reports the following: Allergies--reviewed Medications--reviewed current medications Falls--None BACKGROUND: Reason for Home Care: Infection following a procedure, organ and space surgical site, initial encounter ASSESSMENT: SN greeted at door by patient no DME and demonstrates stable gait. Patient appears in no acute distress. During visit, patient demonstrated need for continued IV infusion education and needs further instructions focused on IV ATB administration. Patient/CG concerns verbalized today: none Vitals (see flow sheet for details): WDL except: Heart Rate: 102 SN findings today: A&Ox4. Nonlabored breathing on room air; lungs clear throughout. Patient denies SOB. Tachycardic; Dr. Chen notified. BSPx4. Patient states that BM are soft and formed. No edema noted. SN reviewed s/s of infection and reviewed wound care. RU PICC noted without complications.SN guided patient through IV ATB administration. Patient remains anxious about IV setup and is missing a few steps in the process; patient is not yet independent with administration. See intervention summary for education details and skills performed. Plan of care, progress towards goals, and visit frequency reviewed with patient. Patient demonstrated a need for further skilled SN services for wound/skin care, infusion care and labs Current Discharge plan: self-care RECOMMENDATION: Next visit to focus on (be specific): PICC care and labs [facility] Work Phone: [phone]) [phone] History of Present illness Narrative* Elena Isbell APRN.CURING PRESS OPERATOR - 11/04/2024 2:31 PM EST Chief Complaint Patient presents with: Hospital F/U HPI Jenna Valadez is a 54 year old female who presents here today for Above Complaints.. Patient presents for hospital follow up. Patient was [place] postoperative abscess following appendectomy. Patient is currently receiving [facility] for IV antibiotics as abscess could not be drained due to location, has PICC line. F/U 11/17 with surgery.Patient reports Past medical history, appointments, medications, allergies reviewed. Previous Medical History PAST MEDICAL HISTORY Diagnosis Date Anxiety Depression Emphysema lung (HCC) 08/14/2016 Hypokalemia Hypomagnesemia Low HDL (under 40) Previous Surgical History PAST SURGICAL HISTORY Procedure Laterality Date COLONOSCOPY 08/19/2016 EGD 08/19/2016 Family History FAMILY HISTORY Problem Relation Age of Onset Breast Cancer Mother Heart Maternal Grandmother Diabetes Maternal Grandmother Arthritis Maternal Uncle Breast Cancer Sister Breast Cancer Paternal Aunt Patient Allergies ALLERGIES Allergen Reactions Prozac [Fluoxetine * Other: See Comments headaches Wellbutrin [Bupropi* Other: See Comments Increased anxiety and stomach ache Current Medications Current Outpatient Medications on File Prior to Visit Medication Sig ertapenem sodium (ERTAPENEM INTRAVENOUS) Inject 1 g intravenously once daily. sodium chloride (NaCl) 0.9% injection solution Inject 10 mL intravenously as directed. Flush beforeblood draws with 10 mL and after blood draws with 20 mL. Flush before and after each dose with 10 mL. Flush unused lumens with 10 mL daily. oxyCODONE IR (ROXICODONE) 5 mg immediate release tablet Take 1 tablet by mouth every 6 hours as needed for pain for up to 5 days. acetaminophen (TYLENOL) 500 mg tablet Take 2 tablets by mouth every 6 hours. albuterol HFA (PROVENTIL HFA, VENTOLIN HFA) 90 mcg/actuation inhaler Inhale 2 Puffs as instructed every 4 hours as needed for wheezing/shortness of breath. No current facility-administered medications on file prior to visit. Social History Social History Tobacco Use Smoking status: Every Day Current packs/day: 1.00 Average packs/day: 1 pack/day for 25.0 years (25.0 ttl pk-yrs) Types: Cigarettes Smokeless tobacco: Never Vaping Use Vaping status: Never Used Substance Use Topics Alcohol use: No Drug use: Not Currently Types: Marijuana Review of Symptoms REVIEW OF SYSTEMS SEE HPI EXAM: BP 124/83 Pulse 106 Wt 57 kg (125 lb 10.6 oz) LMP (LMP Unknown) BMI 23.42 kg/m General Appearance: Well appearing, alert, in no acute distress, well-hydrated, well nourished. Abdomen: Positive findings: distended, tenderness mild RLQ, Wound: healing, steri strips in place x3, no redness swelling or drainage noted. . Extremities: No deformities, edema, skin discoloration, clubbing or cyanosis. Good capillary refill. . PICC to right upper arm. Health Maintenance List Hepatitis B Vaccine(1 of 3 - 19+ 3-dose series) Never done Alpha-1 Antitrypsin Deficiency Screening Never done Mammogram Screening due on 08/04/2017 Shingrix Vaccine(1 of 2) Never done Influenza Vaccine(1) due on 05/01/2024 Covid-19 Vaccine( season) due on 05/01/2024 Pneumococcal Vaccine: 50+(3 of 3 - PCV20 or PCV21) due on 11/14/2024 Hepatitis C Screening due on 01/11/2025 HIV Screening due on 01/11/2025 Spirometry due on 03/14/2025 Lung Cancer Screening due on 03/14/2025 Cervical Cancer Screening due on 03/14/2025 Annual PCP Team Chronic Disease Visit due on 03/28/2025 DTaP,Tdap,Td Vaccine(2 - Td or Tdap) due on 04/15/2026 Colorectal Cancer Screening due on 08/19/2026 Diabetes Screening due on 11/03/2027 Lipid Screening due on 01/11/2029 ASSESSMENT/PLAN: 1. Postoperative intra-abdominal abscess (HCC) - ICD9: 998.59, 567.22, ICD10: T81.43XA, K65.1 (primary diagnosis) -continue IV antibiotics per hospital d/c. Follow up with surgery as scheduled. -[facility] following while on IV ATB and for PICC care. 2. Hypokalemia - ICD9: 276.8, ICD10: E87.6 - POTASSIUM Elena Isbell APRN.CURING PRESS OPERATOR documented in this encounterProtestant Deacon[facility] Hospital03-07-2025 NoteHNO ID: [id number] Author: ELENA ISBELL APRN.CURING PRESS OPERATOR Service: ? Author Type: Nurse Practitioner Type: Progress Notes Filed: 11/04/2024 14:49 Note Text: Chief Complaint Patient presents with: Hospital F/U [facility] Jenna Valadez is a 54 year old female who presents here today for Above Complaints.. Patient presents for hospital follow up. Patient was seen in [place] for postoperative abscess following appendectomy. Patient is currently receiving [facility] for IV antibiotics as abscess could not be drained due to location, has PICC line. F/U 11/17 with surgery.Patient reports Past medical history, appointments, medications, allergies reviewed. Previous Medical History PAST MEDICAL HISTORY Diagnosis Date Anxiety Depression Emphysema lung (HCC) 08/14/2016 Hypokalemia Hypomagnesemia Low HDL (under 40) Previous Surgical History PAST SURGICAL HISTORY Procedure Laterality Date COLONOSCOPY 08/19/2016 EGD 08/19/2016 Family History FAMILY HISTORY Problem Relation Age of Onset Breast Cancer Mother Heart Maternal Grandmother Diabetes Maternal Grandmother Arthritis Maternal Uncle Breast Cancer Sister Breast Cancer Paternal Aunt Patient Allergies ALLERGIES Allergen Reactions Prozac [Fluoxetine * Other: See Comments headaches Wellbutrin [Bupropi* Other: See Comments Increased anxiety and stomach ache Current Medications Current Outpatient Medications on File Prior to Visit Medication Sig ertapenem sodium (ERTAPENEM INTRAVENOUS) Inject 1 g intravenously once daily. sodium chloride (NaCl) 0.9% injection solution Inject 10 mL intravenously as directed. Flush before blood draws with 10 mL and after blood draws with 20 mL. Flush before and after each dose with 10 mL. Flush unused lumens with 10 mL daily. oxyCODONE IR (ROXICODONE) 5 mg immediate release tablet Take 1 tablet by mouth every 6 hours as needed for pain for up to 5 days. acetaminophen (TYLENOL) 500 mg tablet Take 2 tablets by mouth every 6 hours. albuterol HFA (PROVENTIL HFA, VENTOLIN HFA) 90 mcg/actuation inhaler Inhale 2 Puffs as instructed every 4 hours as needed for wheezing/shortness of breath. No current facility-administered medications on file prior to visit. Social History Social History Tobacco Use Smoking status: Every Day Current packs/day: 1.00 Average packs/day: 1 pack/day for 25.0 years (25.0 ttl pk-yrs) Types: Cigarettes Smokeless tobacco: Never Vaping Use Vaping status: Never Used Substance Use Topics Alcohol use: No Drug use: Not Currently Types: Marijuana Review of Symptoms REVIEW OF SYSTEMS SEE HPI EXAM: BP 124/83 Pulse 106 Wt 57 kg (125 lb 10.6 oz) LMP (LMP Unknown) BMI 23.42 kg/m? General Appearance: Well appearing, alert, in no acute distress, well-hydrated, well nourished. Abdomen: Positive findings: distended, tenderness mild RLQ, Wound: healing, steri strips in place x3, no redness swelling or drainage noted. . Extremities: No deformities, edema, skin discoloration, clubbing or cyanosis. Good capillary refill. . PICC to right upper arm. Health Maintenance List Hepatitis B Vaccine(1 of 3 - 19+ 3-dose series) Never done Alpha-1 Antitrypsin Deficiency Screening Never done Mammogram Screening due on 08/04/2017 Shingrix Vaccine(1 of 2) Never done Influenza Vaccine(1) due on 05/01/2024 Covid-19 Vaccine( season) due on 05/01/2024 Pneumococcal Vaccine: 50+(3 of 3 - PCV20 or PCV21) due on 11/14/2024 Hepatitis C Screening due on 01/11/2025 HIV Screening due on 01/11/2025 Spirometry due on 03/14/2025 Lung Cancer Screening due on 03/14/2025 Cervical Cancer Screening due on 03/14/2025 Annual PCP Team Chronic Disease Visit due on 03/28/2025 DTaP,Tdap,Td Vaccine(2 - Td or Tdap) due on 04/15/2026 Colorectal Cancer Screening due on 08/19/2026 Diabetes Screening due on 11/03/2027 Lipid Screening due on 01/11/2029 ASSESSMENT/PLAN: 1. Postoperative intra-abdominal abscess (HCC) - ICD9: 998.59, 567.22, ICD10: T81.43XA, K65.1 (primary diagnosis) -continue IV antibiotics per hospital d/c. Follow up with surgery as scheduled. -[facility] following while on IV ATB and for PICC care. 2. Hypokalemia - ICD9: 276.8, ICD10: E87.6 - POTASSIUM Elena Ibsell APRN.[facility]03-07-2025 Miscellaneous Notes* [facility] ROUTINE IV EDUCATION - Shruthi Vásquez RN - 11/04/2024 12:15 PM EST SITUATION: Half-Way routine IV visit focused on IV infusion education completed today. only patient also present during today's visit. patient reports the following: reports the following changes since the last homecare visit: Allergies--reviewed Medications--reviewed current medications Falls--None BACKGROUND: Reason for Home Care: IV ATB education, PICC care, labs ASSESSMENT: SN greeted at door by patient no DME and demonstrates stable gait. Patient appears in no acute distress. During visit, patient demonstrated need for continued IV infusion education and needs further instructions focused on hands on learning. Patient/CG concerns verbalized today: Anxiety regarding IV ATB administration Vitals (see flow sheet for details): WDL except: Heart Rate: 102, pt reports feeling anxious regarding IV administration SN findings today: Pt has all items set out for IV ATB administration today with written instructions readily available. Pt needed cueing for completing certain steps and needed frequent reassurance.Pt reminded to complete hand hygeine prior to starting IV ATB infusion. She was able to complete all steps hands on with instruction from SN today. Pt recalled some steps reviewed with instruction yesterday but has fears that she will forget to mix ATB, miss a step and complete IV ATB administration incorrectly. Support provided. SN added notes to come written instruction and encouraged pt to review prior to starting infusion tomorrow and with each infusion to follow. Pt verbalized understanding. See intervention summary for education details and skills performed. Plan of care, progress towards goals, and visit frequency reviewed with patient. Patient demonstrated a need for further skilled SN services for chronic disease management & education, medication education, infusion care, labs and safety Current Discharge plan: self-care RECOMMENDATION: Next visit to focus on (be specific): IV ATB education documented in this encounterProtestant [facility]03-07-[facility]25 Patient's home Note* [facility] ROUTINE IV EDUCATION - Shruthi Vásquez RN - 11/04/2024 12:15 PM EST SITUATION: Half-Way routine IV visit focused on IV infusion education completed today. only patient also present during today's visit. patient reports the following: reports the following changes since the last homecare visit: Allergies--reviewed Medications--reviewed current medications Falls--None BACKGROUND: Reason for Home Care: IV ATB education, PICC care, labs ASSESSMENT: SN greeted at door by patient no DME and demonstrates stable gait. Patient appears in no acute distress. During visit, patient demonstrated need for continued IV infusion education and needs further instructions focused on hands on learning. Patient/CG concerns verbalized today: Anxiety regarding IV ATB administration Vitals (see flow sheet for details): WDL except: Heart Rate: 102, pt reports feeling anxious regarding IV administration SN findings today: Pt has all items set out for IV ATB administration today with written instructions readily available. Pt needed cueing for completing certain steps and needed frequent reassurance.Pt reminded to complete hand hygeine prior to starting IV ATB infusion. She was able to complete all steps hands on with instruction from SN today. Pt recalled some steps reviewed with instruction yesterday but has fears that she will forget to mix ATB, miss a step and complete IV ATB administration incorrectly. Support provided. SN added notes to come written instruction and encouraged pt to review prior to starting infusion tomorrow and with each infusion to follow. Pt verbalized understanding. See intervention summary for education details and skills performed. Plan of care, progress towards goals, and visit frequency reviewed with patient. Patient demonstrated a need for further skilled SN services for chronic disease management & education, medication education, infusion care, labs and safety Current Discharge plan: self-care RECOMMENDATION: Next visit to focus on (be specific): IV ATB education [facility] Work Phone: [phone] Telephone encounter Note* Telephone Encounter - Jame Hess RN - 11/03/2024 9:52 PM EST I am the home care nurse who saw this today to start services. Pt requesting help with financial assistance, I placed an 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 MACHINE TENDER referral. Thank you [facility] Work Phone: [phone]) 957-637303-06-2025 Miscellaneous Notes* Telephone Encounter - Jame Hess RN - 11/03/2024 9:52 PM EST I am the home care nurse who saw this today to start services. Pt requesting help with financial assistance, I placed an 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 MACHINE TENDER referral. Thank you documented in this encounterPro[facility] Telephone encounter Note * Telephone Encounter - Saige Perez RN - 11/03/2024 12:34 PM EST Patient call. She was just discharged from hospital yesterday following abdominal abscess.and states her potassium was quite low. She is wondering why she has no prescription for a potassium supplement? Please advise and call back [phone] (home) [phone] (cell) Note that potassium on 11/02/24 was 4.7 Advised patient of this. She has appt with her PCP SERVANDO tomorrow. She will discuss her labs then. Encounter closed. [facility]03-06-2025 Miscellaneous Notes* Telephone Encounter - Saige Perez RN - 11/03/2024 12:34 PM EST Patient call. She was just discharged from hospital yesterday following abdominal abscess.and states her potassium was quite low. She is wondering why she has no prescription for a potassium supplement? Please advise and call back [phone] (home) [phone] (cell) Note that potassium on 11/02/24 was 4.7 Advised patient of this. She has appt with her PCP SERVANDO tomorrow. She will discuss her labs then. Encounter closed. documented in this encounterProtest[facility]03-[facility]25 Miscellaneous Notes* SN SOC IV - Jame Hess RN - 11/03/2024 11:09 AM EST SITUATION: Half-Way SOC IV visit completed today. pt's mother also present during today's visit. patient reports the following: Allergies--reviewed Medications--full medication reconciliation completed Falls--None DME-Reviewed and added to chart Advance Directives: Patient does have advance directives. BACKGROUND: Discharged/Referral from [facility] on 11/02/24 following treatment for Intra-Abdominal Abscess, appendicitis, s/p appendectomy. Pertinent referral information: PTSD, KELSI ASSESSMENT: SN greeted at door by patient no DME and demonstrates stable gait. Patient appears in no acute distress. Patient lives at home alone. Home environment: clean, dirty and has pets: 1 dog, 1 cat. SN taught pt that dog needs to be pennedup in another room during visits SOC booklet reviewed & completed with patient and consent obtained for Home Care services. Patient/CG concerns verbalized today: none Vitals (see flow sheet for details): stable SN findings today: pt pleasant. pt c/o intermittent abd pain, I am so much less bloated now, I feel better. pt lives alone in clean trailer. pt ambulates without device, SN taugh pt falls safety. SN reviewed medication and taught pt about high risk medications. pt denies GI/ issues. pt has laproscopic sites and midline abd incision, all are covered with steri-strips, which are intact. SN taught pt incision care and s/sx of infection to report. SN taught pt PICC line safety. pt plans to learn IV infusions. SN applied extension tubing for pt and taught pt how to secure using a clean sock with the toes cut out of the bottom. SN taught pt all steps to perform safe IV antibiotic administration, pt had hands on with all steps. pt became very anxious during teaching, how am I ever going to learn all this, it looked so easy in the hospital. SN provided emotional support. pt followed all SN instrution easily. SN provided pt with written instructions and taught pt that she needs to read over the steps before the next nurse visit. pt read over them immediately and asked relevent questions . pt has f/u with PCP and general surgeon already scheduled. pt requesting financial assistance, this happened right when I just got a new job. message sent to Dr. Chen regarding referral, referral placed. COPAT end 11/12 See intervention summary for education details and skills performed. Plan of care and visit frequency established with patient and plan of care agreed upon. Patient demonstrated a need for further skilled SN services for wound/skin care, infusion care and labs RECOMMENDATION: Visit Frequency: 3w1, 2w1, 1PRN Need for additional services: Patient agreeable to 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 MACHINE TENDER referrals. Patient declined N/A referrals. Additional concerns to be followed up on: NONE During visit, patient demonstrated need for continued IV infusion education and needs further instructions focused on hands on with all steps. Next visit to focus on (be specific): have pt perform hands on with all steps using written instructions as a guide. documented in this encounterProtest[facility]03-[facility] Patient's home Note* HH SN SOC IV - Jame Hess RN - 11/03/2024 11:09 AM EST SITUATION: Half-Way SOC IV visit completed today. pt's mother also present during today's visit. patient reports the following: Allergies--reviewed Medications--full medication reconciliation completed Falls--None DME-Reviewed and added to chart Advance Directives: Patient does have advance directives. BACKGROUND: Discharged/Referral from [facility] on 11/02/24 following treatment for Intra-Abdominal Abscess, appendicitis, s/p appendectomy. Pertinent referral information: PTSD, KELSI ASSESSMENT: SN greeted at door by patient no DME and demonstrates stable gait. Patient appears in no acute distress. Patient lives at home alone. Home environment: clean, dirty and has pets: 1 dog, 1 cat. SN taught pt that dog needs to be pennedup in another room during visits SOC booklet reviewed & completed with patient and consent obtained for Home Care services. Patient/CG concerns verbalized today: none Vitals (see flow sheet for details): stable SN findings today: pt pleasant. pt c/o intermittent abd pain, I am so much less bloated now, I feel better. pt lives alone in clean trailer. pt ambulates without device, SN taugh pt falls safety. SN reviewed medication and taught pt about high risk medications. pt denies GI/ issues. pt has laproscopic sites and midline abd incision, all are covered with steri-strips, which are intact. SN taught pt incision care and s/sx of infection to report. SN taught pt PICC line safety. pt plans to learn IV infusions. SN applied extension tubing for pt and taught pt how to secure using a clean sock with the toes cut out of the bottom. SN taught pt all steps to perform safe IV antibiotic administration, pt had hands on with all steps. pt became very anxious during teaching, how am I ever going to learn all this, it looked so easy in the hospital. SN provided emotional support. pt followed all SN instrution easily. SN provided pt with written instructions and taught pt that she needs to read over the steps before the next nurse visit. pt read over them immediately and asked relevent questions . pt has f/u with PCP and general surgeon already scheduled. pt requesting financial assistance, this happened right when I just got a new job. message sent to Dr. Chen regarding referral, referral placed. COPAT end 11/12 See intervention summary for education details and skills performed. Plan of care and visit frequency established with patient and plan of care agreed upon. Patient demonstrated a need for further skilled SN services for wound/skin care, infusion care and labs RECOMMENDATION: Visit Frequency: 3w1, 2w1, 1PRN Need for additional services: Patient agreeable to 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 MACHINE TENDER referrals. Patient declined N/A referrals. Additional concerns to be followed up on: NONE During visit, patient demonstrated need for continued IV infusion education and needs further instructions focused on hands on with all steps. Next visit to focus on (be specific): have pt perform hands on with all steps using written instructions as a guide. [facility] Work Phone: 1(192) 320-256503-06-2025 NoteHNO ID: [id number] Author: ROSI TERAN RN Service: ? Author Type: Registered Nurse Type: Progress Notes Filed: 11/03/2024 10:33 Note Text: TRANSITION CARE MANAGEMENT (TCM) INITIAL CONTACT Mortgage Closing Clerk Outreach Provider Action/FYI: Patient discharged without potassium and reports she was taking potassium before and had issues with low potassium while in hospital. Patient going back to work Thursday and needs to have medication reviewed and ordered by then if needed. Initial contact with patient post discharge, spoke to patient. Patient identified by name and . TRANSITION CARE MANAGEMENT INITIAL OUTREACH DOCUMENTATION: 11/03/2024 Date of Outreach: Outreach Attempt 1: Contact Made Date of Discharge 11/02/2024 SUMMARY: -Pt discharged from [facility] on 11/02/2024. -Admitted for: Abdominal Abscess and previous appendicitis. Do you have a hospital follow up appointment with your PCP? Appointment on 11/04/2024 with Elena Isbell. Yes. Remind patient of appointment date, time, and location. If not within 14 calendar days of discharge - please reschedule accordingly. MEDICATIONS: Many patients have questions or concerns about their medications once they are home. Were you prescribed any new medications? Yes Were you told to hold any medications? No Were any of your medications discontinued? Yes, Potassium Do you have any questions about getting or taking your medications? Yes, whether or not she is to be taking potassium. Your discharge instructions/After visit Summary (AVS) are important in guiding you through the recovery process. Is there anything I might help you understand? Yes, discharge instructions/AVS are inadequate, not clear to the patient. If further clinical clarification is needed - follow site specific process for handoff to RN/ORACLE APPLICATIONS DEVELOPER, or LIP. Do you have all the necessary equipment and supplies at home? Yes, HH coming today to set up IV medication for self administration. [facility] History of Present illness Narrative* Rosi Teran RN - 11/03/2024 10:16 AM EST TRANSITION CARE MANAGEMENT (TCM) INITIAL CONTACT Mortgage Closing Clerk Outreach Provider Action/FYI: Patient discharged without potassium and reports she was taking potassium before and had issues with low potassium while in hospital. Patient going back to work Thursday and needs to have medication reviewed and ordered by then if needed. Initial contact with patient post discharge, spoke to patient. Patient identified by name and . TRANSITION CARE MANAGEMENT INITIAL OUTREACH DOCUMENTATION: 11/03/2024 Date of Outreach: Outreach Attempt 1: Contact Made Date of Discharge 11/02/2024 SUMMARY: -Pt discharged from [facility] on 11/02/2024. -Admitted for: Abdominal Abscess and previous appendicitis. Do you have a hospital follow up appointment with your PCP? Appointment on 11/04/2024 with Elena Isbell. Yes. Remind patient of appointment date, time, and location. If not within 14 calendar days of discharge - please reschedule accordingly. MEDICATIONS: Many patients have questions or concerns about their medications once they are home. Were you prescribed any new medications? Yes Were you told to hold any medications? No Were any of your medications discontinued? Yes, Potassium Do you have any questions about getting or taking your medications? Yes, whether or not she is to be taking potassium. Your discharge instructions/After visit Summary (AVS) are important in guiding you through the recovery process. Is there anything I might help you understand? Yes, discharge instructions/AVS are inadequate, not clear to the patient. If further clinical clarification is needed - follow site specific process for handoff to RN/ORACLE APPLICATIONS DEVELOPER, or LIP. Do you have all the necessary equipment and supplies at home? Yes, HH coming today to set up IV medication for self administration. Medical records from recent hospitalization: [facility] documented in this encounterProtest[facility]03-[facility]25 NotePatient Outreach (FAMPWS) VALADEZJENNA Sarika ([id number]) 1970 F Date Time Provider Department 11/03/24 ELENA ISBELL During your visit today, we recorded the following information about you: Rosi Teran RN 11/03/2024 10:33 AM Signed TRANSITION CARE MANAGEMENT (TCM) INITIAL CONTACT Mortgage Closing Clerk Outreach Provider Action/FYI: Patient discharged without potassium and reports she was taking potassium before and had issues with low potassium while in hospital. Patient going back to work Thursday and needs to have medication reviewed and ordered by then if needed. Initial contact with patient post discharge, spoke to patient. Patient identified by name and . TRANSITION CARE MANAGEMENT INITIAL OUTREACH DOCUMENTATION: 11/03/2024 Date of Outreach: Outreach Attempt 1: Contact Made Date of Discharge 11/02/2024 SUMMARY: -Pt discharged from [facility] on 11/02/2024. -Admitted for: Abdominal Abscess and previous appendicitis. Do you have a hospital follow up appointment with your PCP? Appointment on 11/04/2024 with Elena Isbell. Yes. Remind patient of appointment date, time, and location. If not within 14 calendar days of discharge - please reschedule accordingly. MEDICATIONS: Many patients have questions or concerns about their medications once they are home. Were you prescribed any new medications? Yes Were you told to hold any medications? No Were any of your medications discontinued? Yes, Potassium Do you have any questions about getting or taking your medications? Yes, whether or not she is to be taking potassium. Your discharge instructions/After visit Summary (AVS) are important in guiding you through the recovery process. Is there anything I might help you understand? Yes, discharge instructions/AVS are inadequate, not clear to the patient. If further clinical clarification is needed - follow site specific process for handoff to RN/ORACLE APPLICATIONS DEVELOPER, or LIP. Do you have all the necessary equipment and supplies at home? Yes, HH coming today to set up IV medication for self administration. Medical records from recent hospitalization: Epic Allergies As of Date: 11/03/2024 Noted Allergy Reaction PROZAC (FLUOXETINE HCL) 06/11/2015 14 - Other: See Comments Comments: headaches WELLBUTRIN (BUPROPION HCL) 12/19/2019 14 - Other: See Comments Comments: Increased anxiety and stomach ache Date Reviewed: 11/02/2024 Reviewed by: Shelia Whitten RN - Fully Assessed Prescriptions as of 11/03/2024 - oxyCODONE IR (ROXICODONE) 5 mg immediate release tablet Take 1 tablet by mouth every 6 hours as needed for pain for up to 5 days. - acetaminophen (TYLENOL) 500 mg tablet Take 2 tablets by mouth every 6 hours. - albuterol HFA (PROVENTIL HFA, VENTOLIN HFA) 90 mcg/actuation inhaler Inhale 2 Puffs as instructed every 4 hours as needed for wheezing/shortness of breath. 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 [*10/04/2016 Chronic pain of both knees [M25.561, M25.562, G*12/09/2016 Encounter for screening for cardiovascular diso*12/09/2016 Hypokalemia [E87.6] 12/09/2016 11/02/2024 Hyperlipidemia, mixed [E78.2] 02/15/2019 PTSD (post-traumatic stress disorder) [F43.10] 02/08/2024 Panic attack [F41.0] 02/08/2024 Well adult exam [Z00.00] 03/14/2024 KELSI (generalized anxiety disorder) [F41.1] 03/14/2024 Acute appendicitis [K35.80] 10/24/2024 S/P laparoscopic appendectomy [Z90.49] 10/27/2024 Postoperative intra-abdominal abscess (HCC) [T8*10/30/2024 Encounter Status:Closed by ROSI TERAN on [facility]/03/24[facility] NoteHNO ID: [id number] Author: ELENA COLLINS RN Service: Care Management Author Type: Registered Nurse Type: Care Mgt Progress Note Filed: 11/02/2024 14:40 Note Text: CARE MANAGEMENT DISCHARGE NOTE SERVICE DATE: November 02, 2024 SERVICE TIME: 2:38 PM Admission Date: 10/30/2024 LOS: 3 days Discharge Arrangement Discharge Arrangement: Home with Home Health Services Arranged Medical Services: Skilled Home Health Care Type: Half-Way Provider Name: [facility]- [phone] Caregiver Assessment Caregiver is ready, willing and able to meet the patient's needs as recommended by the inter-professional team: No Caregiver needed Transportation Arrangements Transportation Arrangements: Car- Mother to transport Handoff Communication: Handoff to: Primary Care Physician Primary Care Physician Name/Phone: Dr. Anmol Chen- [phone] Additional Information: Discharge order written for today. Notified [facility] of the patients discharge home today. [facility]- start of care on 11/03/24. [facility] to deliver the IV antibiotics tonight. Met with the patient, updated her on start of care date and delivery of her IV antibiotics. Discharge Information Row Name Admission (Current) from 10/30/[address] [facility] Start of Care 11/03/24 Home Infusion Pharmacy Agency [facility] Phone/ Start of Care 11/02/24 SIGNATURE: Elena [place] RN PATIENT NAME: Jenna Valadez DATE: November 02, 2024 TIME: 2:38 PMSelect [facility] [id number] Telephone encounter Note* Telephone Encounter - China Mcrae LPN - 11/02/2024 2:31 PM EST Spoke with Jenna to confirm discharge today. Discussed pharmacy delivery this evening and a SOC 3/6. Jenna in agreement. China Mcrae LPN Central Admissions Intake Nurse [facility] Work Phone: [phone] Miscellaneous Notes* Telephone Encounter - China Mcrae LPN - 11/02/2024 2:31 PM EST Spoke with Jenna to confirm discharge today. Discussed pharmacy delivery this evening and a SOC 3/. Jenna in agreement. China Mcrae LPN Central Admissions Intake Nurse * Telephone Encounter - China Mcrae LPN - 11/02/2024 1:27 PM EST CONFIRMATION CALL a. Date and Time: 1:27 PM 11/02/2024 b. Contact name/relationship: Jenna/pt C. Service Address- [address] [place] [address] [address] [facility] [address] Home or Apartment: [facility] Have you been active with any Home Care company in the last 60 days? No. Caregiver: Yes - Caregiver name Jenna and mother ; spoke with Jenna to confirm (CG must be available for SOC/BRANDON and the following 3-4 visits or until independent) Have you received the flu shot? No China Mcrae LPN documented in this encounterProtest[facility]03-05-2025 Telephone encounter Note * Telephone Encounter - China Mcrae LPN - 11/02/2024 1:27 PM EST CONFIRMATION CALL a. Date and Time: 1:27 PM 11/02/2024 b. Contact name/relationship: Jenna/pt C. Service Address- [address] [place] [address] [address] [facility] [address] Home or Apartment: [facility] Have you been active with any Home Care company in the last 60 days? No. Caregiver: Yes - Caregiver name Jenna and mother ; spoke with Jenna to confirm (CG must be available for SOC/BRANDON and the following 3-4 visits or until independent) Have you received the flu shot? No China Mcrae LPN [facility]03-05-2025 Telephone encounter Note* Telephone Encounter - Anmol Chen MD - 11/02/2024 1:04 PM EST Yes I will follow. However the F2F form needs signed by the provider who did the exam and felt she needed HHC services and ordered them. [facility]03-05-2025 Miscellaneous Notes* Telephone Encounter - Anmol Chen MD - 11/02/2024 1:04 PM EST Yes I will follow. However the F2F form needs signed by the provider who did the exam and felt she needed HHC services and ordered them. * Telephone Encounter - China Mcrae LPN - 11/02/2024 12:29 PM EST Anmol Chen MD Please advise if you are agreeable to signing and following for HHC services? Our Clinicians will be sending the Plan of Care to you for review and approval. They will reach out for any appropriate orders required to provide home care services for the patient. We are not able to initiate [facility] services without a following provider. Home care clinicians may also obtain orders from [facility] Virtualist Providers Thank you and we would be happy to answer any questions. China Mcrae LPN 11/02/2024 12:29 PM documented in this encounterProtestant [facility]acon[facility]03-05-2025 Telephone encounter Note * Telephone Encounter - Bisi Griffith - 11/02/2024 12:58 PM ESTSummary: COPAT ACTION-FOR IDC USE ONLY Images from the original note were not included. 11/02/2024 10:00 AM Guillermo Moinque [place] PROVIDER ADULT [id number] Patient Info Patient Name Sex Jenna Valadez ([id number]) Female 1970 Encounter Notes Progress Notes by Guillermo Monique MD, encounter date 11/02/2024: Progress Notes [facility] Outpatient Parenteral Antimicrobial Therapy (OPAT) Start Form Patient Info Patient MRN Patient Name Address Date of [id number] Jenna Valadez [address] [facility] [address] 1970 Start Date 11/02/2024 Physician Group [email or web address] Diagnosis Group Diagnosis GI/Hepatobiliary/Peritoneal: Intra-abdominal abscess Micro-organism CULTURE NEGATIVE IV Antibiotics Antibiotic Dose Frequency Stop Date Ertapenem 1 gram every 24 hours 11/12/2024 Lab Monitoring Plan Labs Frequency While on CBC/diff Creatinine Liver Function Tests every Thursday every Thursday every Thursday Ertapenem Ertapenem Ertapenem OPAT Pharmacy Consult Yes Cath Care Protocol Flush IV line with 10 mL of normal saline (0.9%) before and after each dose of medication or at a minimum once daily. Flush IV line with 10-20 mL of normal saline (0.9%) after lab draw. Postoperative intra-abdominal abscess Hypokalemia Chronic anemia Thrombocytosis Repeat CT w unchanged abscess on ceftriaxone and flagyl so changed to ertapenem Labs may be drawn on Thursday if Thursday is a holiday. Follow up Provider Follow up date/time Appointment type Guillermo Monique MD No Follow Up Provider Monitoring Treatment Course Guillermo Monique MD Address [address] [place] [address], [place] [address] Prescribing Provider's signature - electronically signed by Guillermo Monique MD on 11/02/24 at 10:01 AM [facility]03-05-2025 NoteHNO ID: [id number] Author: GISSELLE RICCI RN Service: PICC Team Author Type: Registered Nurse Type: Procedures Filed: 11/02/2024 15:40 Note Text: PICC NURSE INSERTION NOTE DATE OF PROCEDURE: November 02, 2024 TIME OF PROCEDURE: 1200 ORDERING PHYSICIAN: HUDSON Butt INFORMED CONSENT: Obtained per hospital policy. INDICATION FOR LINE PLACEMENT: COPAT CONDITION OF LINE PLACEMENT: Sterile PRIMARY PROCEDURALIST: Owen Alcantar RN MAIL AGENT: Gisselle Ricci RN PRE-PROCEDURE REVIEW ALLERGIES Allergen Reactions Prozac [Fluoxetine * Other: See Comments headaches Wellbutrin [Bupropi* Other: See Comments Increased anxiety and stomach ache Known History of Upper Venous Thrombosis: No Known History of Permanent Pacemaker or Automated Implanted Cardiac Device: No Previous Breast Surgery of Lymph Node Dissection: No Estimated Glomerular Filtration Rate Date Value Ref Range Status 11/02/2024 97 >=60 mL/min/1.73m? Final Comment: Estimated Glomerular Filtration Rate (eGFR) is calculated using the 2020 CKD-EPI creatinine equation. This equation utilizes serum creatinine, sex, and age as parameters. The creatinine assay has traceable calibration to isotope dilution-mass spectrometry. Refer to KDIGO guidelines for clinical interpretation. In patients with unstable renal function, e.g. those with acute kidney injury, the eGFR may not accurately reflect actual GFR. eGFR- Date Value Ref Range Status 12/13/2020 >60 Final eGFR Date Value Ref Range Status 11/24/2018 >60 >60mL/min/1.73m2 Final Comment: If the patient is , multiply the result by 1.210. History of Renal Disease: No Ultrasound Assessment Complete: Yes PROCEDURE NARRATIVE SAFE PRACTICE Hand Hygiene per Hospital Policy: Yes Skin Preparation Unit Dose Applicator Used: Chloraprep (CHG + alcohol), allowed to dry. Procedure Surface Cleansed with Antimicrobial Wipes: Yes Barriers Used by Proceduralist and all Assisting Personnel: Yes UNIVERSAL PROTOCOL / SAFETY CHECKLIST Procedure to be Performed: PICC line placement Sign In: A Moment of CARE was completed. Appropriate PPE (Personal Protective Equipment) worn by all providers involved with the procedure. Special equipment utilized ultrasound machine. Patient/Surrogate Stated/Verified: Patient name, Date of , Relevant allergies, and The intended procedure Time Out: Relevant labs, photos, and/or imaging studies have been reviewed. Intended patient and procedure match the source document(s) (e.g. consent, HANDP, associated studies [imaging, pathology]) match the intended patient and procedure. Consent obtained and matches the intended procedure. Yes. Correct side/site has been marked and visible. Medications required for this procedure are verified. Fire risk assessed and interventions discussed. Implants: Correct implant(s) confirmed including size and side. Expiration date(s) reviewed. Sign Out: All instruments, equipment, possible retained foreign bodies are accounted for. Yes. The post-procedure plan of care has been communicated to the patient or surrogate and to patient's multidisciplinary team (including bedside nurse for hospitalized patients). CATHETER PLACEMENT Brand: AetherPal Lot: [id number] Number of Lumens: 1 Type of PICC: Power Injectable PICC Lumen Size: 4 Albanian PLACEMENT TECHNIQUE Lidocaine: Yes, Lidocaine 1% Volume 2 mL Subcutaneous Modified Seldinger Technique Used to Place Line via the Right Basilic Ultrasound Guidance: Yes Number of Attempts at Insertion: 1 Ensured control of guidewire during all aspects of the procedure: Yes Accounted for entire guidewire upon removal: Yes Internal Length: 32 cm External Length: 0 cm Trim Length: 32 cm Mid-Arm Circumference: 30 centimeters Post Insertion Pain Level Related to Procedure: 0 Action Taken to Address Pain: None needed Verified Placement: Blood return and flushes with ease and Tip location system or device indicates the tip is located in the SVC/CAJ. Line was Flushed with 20 mL normal saline Line Secured with: Securement device Sterile Dressing Applied and Dated: Yes Sterile Caps on all Ports Prior to Leaving Procedure Area: Yes SPECIMENS: None COMPLICATIONS: None Patient Education Materials: Placed in chart [facility] Central Line Insertion checklist was utilized during this procedure. QUESTIONS or PROBLEMS: Page [phone] SIGNATURE: Gisselle Ricci RN PATIENT NAME: Jenna Valadez DATE: November 02, 2024 TIME: 12:36 PM PAGER/CONTACT PHONE: [phone] [id number] Telephone encounter Note* Telephone Encounter - China Mcrae LPN - 11/02/2024 12:29 PM EST Anmol Chen MD Please advise if you are agreeable to signing and following for HHC services? Our Clinicians will be sending the Plan of Care to you for review and approval. They will reach out for any appropriate orders required to provide home care services for the patient. We are not able to initiate HHC services without a following provider. Home care clinicians may also obtain orders from [facility] Virtualist Providers Thank you and we would be happy to answer any questions. China Mcrae LPN 11/02/2024 12:29 PM [facility] Work Phone: [phone] NoteHNO ID: [id number] Author: ELENA COLLINS RN Service: Care Management Author Type: Registered Nurse Type: Care Mgt Progress Note Filed: 11/02/2024 12:44 Note Text: CARE MANAGEMENT PROGRESS NOTE SERVICE DATE: 11/02/2024 SERVICE TIME: 11:51 AM LOS: 3 days Needs Prior to Discharge: IV Antibiotics [place] Given: Yes Level of Care Discussed: Home Care Financial Disclosure Provided: Yes PICC line ordered for today, Copat in EPIC. Met with the patient. The patient has HCAPS. Referral to [facility]. CM department will continue to follow for DC needs. 12:44 pm- [facility] able to accept. SIGNATURE: Elena Collins RN PATIENT NAME: Jenna Valadez DATE: November 02, 2024 TIME: 11:51 AMSelect [facility] Rehabilitation [id number] NoteHNO ID: [id number] Author: GUILLERMO MONIQUE MD Service: ? Author Type: Physician Type: Progress Notes Filed: 11/02/2024 10:01 Note Text: [facility] Outpatient Parenteral Antimicrobial Therapy (OPAT) Start Form Patient Info Patient MRN Patient Name Address Date of [id number] Jenna Valadez [address] [place] [address] 1970 Start Date 11/02/2024 [facility]ician Group [facility] Diagnosis GI/Hepatobiliary/Peritoneal: Intra-abdominal abscess Micro-organism CULTURE NEGATIVE IV Antibiotics Antibiotic Dose Frequency Stop Date Ertapenem 1 gram every 24 hours 11/12/2024 Lab Monitoring Plan Labs Frequency While on CBC/diff Creatinine Liver Function Tests every Thursday every Thursday every Thursday Ertapenem Ertapenem Ertapenem OPAT Pharmacy Consult Yes Cath Care Protocol Flush IV line with 10 mL of normal saline (0.9%) before and after each dose of medication or at a minimum once daily. Flush IV line with 10-20 mL of normal saline (0.9%) after lab draw. Postoperative intra-abdominal abscess Hypokalemia Chronic anemia Thrombocytosis Repeat CT w unchanged abscess on ceftriaxone and flagyl so changed to ertapenem Labs may be drawn on Thursday if Thursday is a holiday. Follow up Provider Follow up date/time Appointment type Guillermo Monique MD No Follow Up Provider Monitoring Treatment Course Guillermo Monique MD Address [address] [place] [address] Prescribing Provider's signature - electronically signed by Guillermo Monique MD on 11/02/24 at 10:01 AMSelect [facility] [id number] History of Present illness Narrative* Guillermo Monique MD - 11/02/2024 10:00 AM EST Images from the original note were not included. [facility] Outpatient Parenteral Antimicrobial Therapy (OPAT) Start Form Patient Info Patient MRN Patient Name Address Date of [id number] Jenna Valadez [address] [place] [address] 1970 Start Date 11/02/2024 Physician [facility] Diagnosis Group Diagnosis GI/Hepatobiliary/Peritoneal: Intra-abdominal abscess Micro-organism CULTURE NEGATIVE IV Antibiotics Antibiotic Dose Frequency Stop Date Ertapenem 1 gram every 24 hours 11/12/2024 Lab Monitoring Plan Labs Frequency While on CBC/diff Creatinine Liver Function Tests every Thursday every Thursday every Thursday Ertapenem Ertapenem Ertapenem OPAT Pharmacy Consult Yes Cath Care Protocol Flush IV line with 10 mL of normal saline (0.9%) before and after each dose of medication or at a minimum once daily. Flush IV line with 10-20 mL of normal saline (0.9%) after lab draw. Postoperative intra-abdominal abscess Hypokalemia Chronic anemia Thrombocytosis Repeat CT w unchanged abscess on ceftriaxone and flagyl so changed to ertapenem Labs may be drawn on Thursday if Thursday is a holiday. Follow up Provider Follow up date/time Appointment type Guillermo Monique MD No Follow Up Provider Monitoring Treatment Course Guillermo Monique MD Address [address] [place] [address] Prescribing Provider's signature - electronically signed by Guillermo Monique MD on 11/02/24 at 10:01 AM documented in this encounterPro[facility]03-[facility]-2025 NoteHNO ID: [id number] Author: KUSHAL BOSCH MD Service: General Surgery Author Type: Physician Type: Progress Notes Filed: 11/01/2024 10:37 Note Text: INPATIENT PROGRESS NOTE SERVICE DATE: 11/01/2024 SERVICE TIME: 6:50am PRIMARY SERVICE: Surgery Subjective CHIEF COMPLAINT: Right lower quadrant pain INTERVAL HPI: Patient is tolerating a diet is afebrile on IV antibiotics. CT scan from October 29 demonstrated no drainable collections Current Facility-Administered Medications Medication Dose Route Frequency acetaminophen 1,000 mg tab(s) (TYLENOL) 1,000 mg ORAL q 6 H NaCl 0.9% iv flush bag 20 mL INTRAVENOUS PRN cefTRIAXone iv piggyback 1 g in dextrose (iso-osmotic) 50 mL (ROCEPHIN) 1 g INTRAVENOUS q 24 H metroNIDAZOLE iv piggyback 500 mg in NaCl (iso-osmotic) 100 mL (FLAGYL) 500 mg INTRAVENOUS q 8 H ondansetron (PF) 4 mg injection (ZOFRAN) 4 mg INTRAVENOUS q 6 H PRN morphine 2 mg injection 2 mg INTRAVENOUS q 3 H PRN nicotine 21 mg/24 hr 1 Patch (NICODERM) 1 Patch TRANSDERMAL DAILY And nicotine -- REMOVE patch OTHER DAILY And nicotine - verify patch OTHER q 8 H nicotine polacrilex 2 mg gum (NICORETTE) 2 mg ORAL q 2 H PRN potassium chloride ER 40 mEq tab(s) (KLOR-CON) 40 mEq ORAL DAILY melatonin 6 mg tab(s) 6 mg ORAL DAILY (8 PM) oxyCODONE IR 5 mg tab(s) (ROXICODONE) 5 mg ORAL q 6 H PRN enteric contrast (radiology procedure) ORAL DIRECTED PRN Objective PHYSICAL EXAM: BP 98/52 Pulse 92 Temp (Src) 98.4 (Oral) Resp 16 Ht 5' 1.417 (1.56m) Wt 130 lb 11.7 oz (59.3kg) SpO2 97% BMI 24.37 kg/(m2). O2 Therapy: Room Air Physical Exam Performed GENERAL: Alert, no distress, cooperative EYES: PERRLA, EOMI OROPHARYNX: Lips, mucosa, and tongue normal. Teeth and gums normal. Oropharynx normal. LUNGS: Lungs clear to auscultation, Good diaphragmatic excursion CARDIAC: Normal S1 and S2; no rubs, murmurs, or gallops ABDOMEN: Abdomen soft, non-tender, BS normal, No masses or organomegaly DATA: Diagnostic tests reviewed for today's visit: Most recent labs and imaging results. Assessment/Plan Principal Problem: Postoperative intra-abdominal abscess (HCC) (POA: Yes) Assessment AND Plan: Patient with smaller pelvic abscess 1 week following laparoscopic appendectomy for perforated appendicitis. Patient clinically doing quite well. Will repeat CT scan today. If no drainable collections will transition to oral antibiotics and discharge patient to home Active Problems: Hypokalemia (POA: Yes) Assessment AND Plan: Resolved Problems: * No resolved hospital problems. * Medication and Non-Pharmacologic VTE Prophylaxis/Anticoagulants 10/30/24 0245 activity - mobilize patient ([place], [place]) VTE Prophylaxis: VTE prophylaxis appropriate SIGNATURE: Kushal Bosch MD PATIENT NAME: Jenna Valadez DATE: November 01, 2024 TIME: 10:35 AMSelect [facility] [id number] NoteHNO ID: [id number] Author: ELENA COLLINS RN Service: Care Management Author Type: Registered Nurse Type: Care Mgt Progress Note Filed: 10/31/2024 08:46 Note Text: CARE MANAGEMENT PROGRESS NOTE SERVICE DATE: 10/31/2024 SERVICE TIME: 8:45 AM LOS: 1 day Needs Prior to Discharge: To Be Determined Review of EMR. New pelvic abscess s/p lap appy on 10/25. Order for IR to evaluate for drain today. Surgery attending. HCAPS at 100% thru 01/22/25. Discharge plan at this time is to return home when medically ready. CM department will continue to follow for DC needs. SIGNATURE: Elena Collins RN PATIENT NAME: Jenna Valadez DATE: October 31, 2024 TIME: 8:44 AMSelect Medical Tri[facility] Rehabilitation [id number] NoteHNO ID: [id number] Author: SALINAS FLYNN RN Service: Care Management Author Type: Registered Nurse Type: Care Mgt Initial Assessment Filed: 10/30/2024 08:44 Note Text: CARE MANAGEMENT: ASSESSMENT AND DISCHARGE PLAN SERVICE DATE: October 30, 2024 SERVICE TIME: 8:40 AM PCP: Anmol Chen MD-confirmed Primary Contact: Extended Emergency Contact Information Primary Emergency Contact: Renuka Vallejo Mobile Relation: Daughter Admission Status: Inpatient Insurance Provider: N/A Discharge Planning requested by: Per Department Practice Potential Transition Plans: anticipate discharge to home with no skilled needs. Patient's mother will transport home. Advance Directives Current Advance Directive: None Continuity Tester Attempted to Assist with AD Completion: Yes Action: Education Provided (provided with AD documents for patient to complete) Current Living Arrangements and Support Lives with: Family members Type of Residence: Private Residence (House) Does the patient have to climb stairs at home?: No Support: Children, Family members, Friends/neighbors How do you manage to accomplish the following: Independent: Ambulation, Bathe/Shower, Dress, Meals/Meal Prep, Going to the bathroom, Medication Management, Transportation to appointments/community Current Services/Equipment Current Post-Acute Service(s): None Discharge Planning Patient Goal(s): Be able to go home, General wellness [place] Choice Explained: [place] of Choice Given: No Reason Not Given: No placements necessary at time of assessment. Discharge Planning Participant(s): Patient Caregiver Assessment: Caregiver is ready, willing and able to meet the patient's needs as recommended by the inter-professional team: No Caregiver needed Transport at Discharge: Transportation Arrangements: Car Needs Prior to Discharge: Needs Prior to Discharge: To Be Determined, Other: See Comment (medical clearance) Post-Acute Discharge Plan: CM following, chart reviewed. Assessment completed with patient, introduced self and role. Patient is 54 years old, AANDO x3, in room air, very pleasant to speak with. Patient reports she had appendectomy on 10/25, discharged from hospital on 10/27 and developed fever; reports likely abscess. On IV antibiotics. Surgery following patient. Prior to admission, patient reports she is independent, employed, needs are met. Her mother will transport her home. Reports she is working on medicaid application with [facility] folks who met with her last hospital stay. Reports she has submitted needed documentation. CM encouraged her to follow-up if she doesn't hear anything soon. Patient interested in advanced directives-CM provided with information. Explained CM will follow for discharge planning. Assigned CM will continue. SIGNATURE: Salinas Flynn RN PATIENT NAME: Jenna Valadez DATE: October 30, 2024 TIME: 8:40 [id number] Telephone encounter Note* Telephone Encounter - Ana Peña RN - 10/29/2024 4:35 PM EST Patient calling regarding General surgery. She is s/p laparoscopic appendectomy 10/25/24 and now hasdeveloped a fever of 100.0, which was measured orally. She is also still having a lot of pain. She is not taking any narcotic pain medication. She is taking tylenol and motrin. Conferenced to [facility] Ravi maldonado, to speak with provider aviation manager for Dr Kushal Bosch. [facility]03-01-2025 Miscellaneous Notes* Telephone Encounter - Ana Peña RN - 10/29/2024 4:35 PM EST Patient calling regarding General surgery. She is s/p laparoscopic appendectomy 10/25/24 and now hasdeveloped a fever of 100.0, which was measured orally. She is also still having a lot of pain. She is not taking any narcotic pain medication. She is taking tylenol and motrin. Conferenced to [facility] service operator, Ravi, to speak with provider aviation manager for Dr Kushal Bosch. documented in this encounterProtest[facility]acon[facility]02-28-2025 Telephone encounter Note * Telephone Encounter - Charleen - 10/28/2024 6:04 PM EST Record ID: [id number] Patient name: Jenna Valadez Date: October 28, 2024 - :04 Administered by: CHARLEEN Protocol: -> Great! Now we are in a secure chat environment. Protecting your health information is important to us. Ok, let's get started. Please verify your name and date of . Please click on the button with your first name. -> Jenna Got it. On to the next question... Select the button with your last name. -> Rory Got it, thank you. Please enter your date of in MM/DD/YYYY format:(e.g., 09/18/1971 for Sep 18, 1971) -> 1970 Thank you for verifying your information. I'd like to ask you a few questions about how your recovery is going. Since leaving the hospital, do you have any new or worsening symptoms? -> No [facility]02-28-2025 Miscellaneous Notes* Telephone Encounter - Charlene - 10/28/2024 6:04 PM EST Record ID: [id number] Patient name: Jenna Valadez Date: October 28, 2024 - :04 Administered by: CHARLEEN Protocol: -> Great! Now we are in a secure chat environment. Protecting your health information is important to us. Ok, let's get started. Please verify your name and date of . Please click on the button with your first name. -> Jenna Got it. On to the next question... Select the button with your last name. -> Rory Got it, thank you. Please enter your date of in MM/DD/YYYY format:(e.g., 09/18/1971 for Sep 18, 1971) -> 1970 Thank you for verifying your information. I'd like to ask you a few questions about how your recovery is going. Since leaving the hospital, do you have any new or worsening symptoms? -> No documented in this encounterProtestant [facility]acon[facility] Hospital02-27-2025 NoteHNO ID: [id number] Author: KUSHAL BOSCH MD Service: General Surgery Author Type: Physician Type: Progress Notes Filed: 10/28/2024 12:36 Note Text: Documentation Query Please clarify the diagnosis associated with the clinical indicators. Sepsis due to Acute gangrenous perforated appendicitis Please clarify the Present on Admission Status. Present on Admission This document will become part of the patient's medical record.[facility] 10-27-2024 NoteHNO ID: [id number] Author: ALTA LORA RN Service: Care Management Author Type: Registered Nurse Type: Care Mgt Progress Note Filed: 10/27/2024 12:47 Note Text: CARE MANAGEMENT DISCHARGE NOTE SERVICE DATE: October 27, 2024 SERVICE TIME: 12:46 PM Admission Date: 10/24/2024 LOS: 1 day Discharge Arrangement Discharge Arrangement: Home with Self Care Caregiver Assessment Caregiver is ready, willing and able to meet the patient's needs as recommended by the inter-professional team: No Caregiver needed Transportation Arrangements Transportation Arrangements: Car Date of Trip: 10/27/24 Destination: Home Handoff Communication: Handoff to: Primary Care Physician Primary Care Physician Name/Phone: Anmol Chen MD/[phone] Discharge order is written for today. EL RED met with the patient at bedside to discuss discharge plans. No skilled needs were identified. Her mother will be driving her home today. SIGNATURE: Alta Lora RN PATIENT NAME: Jenna Valadez DATE: October 27, 2024 TIME: 12:46 PMSelect Medical [facility] Rehabilitation [id number] NoteHNO ID: [id number] Author: KANDY MAHONEY APRN.SERVANDO Service: ? Author Type: Nurse Practitioner Type: Progress Notes Filed: 10/27/2024 12:02 Note Text: Documentation Query Please clarify the Hematologic Status. Acute Blood Loss Anemia This document will become part of the patient's medical record.[facility] 10-25-2024 NoteHNO ID: [id number] Author: SUSAN LOOMIS APRN.CNP Service: General Surgery Author Type: Nurse Practitioner Type: Progress Notes Filed: 10/25/2024 17:11 Note Text: POSTOP PROGRESS NOTE SERVICE DATE: 10/25/2024 SERVICE TIME: 5:09 PM Subjective CHIEF COMPLAINT: laparoscopic appendectomy INTERVAL HISTORY OF PRESENT ILLNESS: This is a 54 year old female postop Day 0 for a LAPAROSCOPIC APPENDECTOMY with Dr. Bosch. Patient states pain level 6/10 with medication management and rest. Patient states no further questions or concerns at this time. Objective PHYSICAL EXAM: BP 92/57 Pulse 94 Temp (Src) 98.1 (Oral) Resp 18 Ht 5' 1 (1.55m) Wt 125 lb 10.6 oz (57.0kg) SpO2 95% BMI 23.76 kg/(m2). O2 Therapy: Room Air Physical Exam: Opsite dressings dry and intact at 3 abdominal sites. No rashes or bruising. Assessment AND Plan POSTOP PLANS: As indicated per Dr. Bosch's post operative protocol. Advised patient to state concerns or questions to nurse. SIGNATURE: Susan Loomis APRN.CNP PATIENT NAME: Jenna Valadez DATE: October 25, 2024 TIME: 5:09 PMSelect Medical [facility]health Rehabilitation [id number] NoteHNO ID: [id number] Author: ALTA LORA RN Service: Care Management Author Type: Registered Nurse Type: Care Mgt Initial Assessment Filed: 10/25/2024 12:56 Note Text: CARE MANAGEMENT: ASSESSMENT AND DISCHARGE PLAN SERVICE DATE: October 25, 2024 SERVICE TIME: 12:53 PM PCP: Anmol Chen MD Primary Contact: Extended Emergency Contact Information Primary Emergency Contact: Renuka Vallejo Mobile Relation: Daughter Admission Status: Observation Insurance Provider: N/A Discharge Planning requested by: Per Department Practice Potential Transition Plans No Services Indicated Advance Directives Current Advance Directive: None Continuity Tester Attempted to Assist with AD Completion: Yes Action: Education Provided Current Living Arrangements and Support Lives with: Alone Type of Residence: Mobile Home Does the patient have to climb stairs at home?: stairs outside the home Support: Children, Parent How do you manage to accomplish the following: Independent: Ambulation, Bathe/Shower, Dress, Meals/Meal Prep, Going to the bathroom, Medication Management, Transportation to appointments/community Current Services/Equipment Current Post-Acute Service(s): None Discharge Planning Patient Goal(s): Be able to go home, General wellness, Less pain [place] of Choice Explained: [place] of Choice Given: No Reason Not Given: No placements necessary Are you interested in bedside delivery of your medications? No, preferred community Pharmacy is [facility]. Discharge Planning Participant(s): Patient Caregiver Assessment: Caregiver is ready, willing and able to meet the patient's needs as recommended by the inter-professional team: No Caregiver needed Transport at Discharge: Transportation Arrangements: Car Needs Prior to Discharge: Needs Prior to Discharge: Other: See Comment (Medical Clearance) Post-Acute Discharge Plan: EMR reviewed and CM assessment complete. 54 year old patient admitted to Observation bed for acute appendicitis. RN CM met with the patient at bedside to discuss discharge planning needs. She reportedly lives alone. 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 No DME use at baseline. No skilled needs are anticipated at discharge. CM assigned will continue to follow. SIGNATURE: Alta Lora RN PATIENT NAME: Jenna Valadez DATE: October 25, 2024 TIME: 12:53 PMSelect Medical [facility] Rehabilitation [id number] NoteHNO ID: [id number] Author: SUSY LEON APRN.SIFTER OPERATOR Service: Anesthesiology Author Type: Nurse Broker [employer]ce Type: Anesthesia Procedure Notes Filed: 10/25/2024 08:16 Note Text: ANESTHESIOLOGY PROCEDURE NOTE Airway General Information Procedure Start Time/Medication Administration: 10/25/2024 8:03 AM Procedure End Time: 10/25/2024 8:03 AM Patient location during procedure: OR Timeout Performed Pre-procedure: timeout performed Consent Obtained: Yes 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, 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 Staffing SIFTER OPERATOR: Susy Leon APRN.SIFTER OPERATOR Performed by: JARRED Indications and Patient Condition Indications for airway management: anesthesia Preoxygenated: yes anesthesia circuit Patient position: sniffing Method: rapid sequence Cricoid Pressure: Yes Manual In-Line Stabilization: No Difficult Mask: No Final Airway Details Final airway type: endotracheal airway Final Endotracheal Airway: ETT Cuffed: yes Successful intubation technique: direct laryngoscopy Endotracheal tube insertion site: oral Blade: Sandro Blade size: #4 ETT size (mm): 6.5 Measured from: lips Measurement (cm): 21 Placement verified by: chest auscultation and capnometry C[place]ack[place] Classification: grade I - full view of glottis Number of attempts at approach: 1 Failed airway: no Unrecognized esophageal intubation: no Airway not difficult SIGNATURE: Susy Leon APRN.SIFTER OPERATOR PATIENT NAME: Jenna Valadez DATE: October 25, 2024 TIME: 8:16 AM CSN: [id number] NoteHNO ID: [id number] Author: DIOGENES LIM MD Service: ? Author Type: Physician Type: Progress Notes Filed: 10/24/2024 15:05 Note Text: Patient presents with: Abdominal Pain: bloating, weakness, fatigue and fever x 2 days HPI: Feeling wiped and and abdominal pain for 2 days. Positive symptoms: Fever, Malaise, Fatigue, no eating or BM for 2 days, bloating, light-headedness, abdominal pain, hurts to walk Negative symptoms: Cough, Sore throat, Nasal Congestion, Rhinorrhea, Vomiting, Diarrhea, blood in stool, PAST MEDICAL HISTORY Diagnosis Date Anxiety Depression Emphysema lung (HCC) 08/14/2016 Hypokalemia Hypomagnesemia Low HDL (under 40) PAST SURGICAL HISTORY Procedure Laterality Date COLONOSCOPY 08/19/2016 EGD 08/19/2016 MEDICATIONS: Current Outpatient Medications Medication Sig albuterol HFA (PROVENTIL HFA, VENTOLIN HFA) 90 mcg/actuation inhaler Inhale 2 Puffs as instructed every 4 hours as needed for wheezing/shortness of breath. No current facility-administered medications for this visit. ALLERGIES: ALLERGIES Allergen Reactions Prozac [Fluoxetine * Other: See Comments headaches Wellbutrin [Bupropi* Other: See Comments Increased anxiety and stomach ache VITALS: BP 110/70 Pulse (!) 132 Temp (!) 38.2 ?C (100.7 ?F) Resp 18 Wt 58 kg (127 lb 13.9 oz) LMP (LMP Unknown) SpO2 98% BMI 25.10 kg/m? 09/03/2023 11/16/2023 01/12/2024 03/14/2024 03/28/2024 08/26/2024 10/24/2024 Vitals Pulse 104 91 100 97 88 96 132 ! PHYSICAL EXAM: GEN: mildly ill appearing, sitting holding abdomen HEENT: PERRL, EOMI, conjunctiva clear Throat: moist mucous membranes, Neck: supple, no thyromegaly, no lymphadenopathy HEART: fast rate, regular rhythm, no murmurs LUNGS: clear to auscultation, no wheezes or crackles, no increased WOB ABD: voluntary guarding, non-distended, general discomfort, no masses ASSESSMENT/PLAN: 1. Generalized abdominal pain - ICD9: 789.07, ICD10: R10.84 (primary diagnosis) 2. Fever, unspecified fever cause - ICD9: 780.60, ICD10: R50.9 3. Tachycardia - ICD9: 785.0, ICD10: R00.0 Fever, abdominal pain, lightheadedness, tachycardia, anorexia, and lack of bowel movements are all flags for a potential serious abdominal issue. She has no URI or vomiting/diarrhea but would like to be checked for the flu. - INFLUENZA AANDB MOLECULAR (POC) - negative Encouraged to seek further evaluation in the ED. She is reluctant to go because she has no insurance but agrees to go to [place] or [place] which are [facility] facilities. Diogenes Lim, [facility]02-24-2025 History of Present illness Narrative* Diogenes Lim MD - 10/24/2024 2:23 PM EST Patient presents with: Abdominal Pain: bloating, weakness, fatigue and fever x 2 days HPI: Feeling wiped and and abdominal pain for 2 days. Positive symptoms: Fever, Malaise, Fatigue, no eating or BM for 2 days, bloating, light-headedness,abdominal pain, hurts to walk Negative symptoms: Cough, Sore throat, Nasal Congestion, Rhinorrhea, Vomiting, Diarrhea, blood in stool, PAST MEDICAL HISTORY Diagnosis Date Anxiety Depression Emphysema lung (HCC) 08/14/2016 Hypokalemia Hypomagnesemia Low HDL (under 40) PAST SURGICAL HISTORY Procedure Laterality Date COLONOSCOPY 08/19/2016 EGD 08/19/2016 MEDICATIONS: Current Outpatient Medications Medication Sig albuterol HFA (PROVENTIL HFA, VENTOLIN HFA) 90 mcg/actuation inhaler Inhale 2 Puffs as instructed every 4 hours as needed for wheezing/shortness of breath. No current facility-administered medications for this visit. ALLERGIES: ALLERGIES Allergen Reactions Prozac [Fluoxetine * Other: See Comments headaches Wellbutrin [Bupropi* Other: See Comments Increased anxiety and stomach ache VITALS: BP 110/70 Pulse (!) 132 Temp (!) 38.2 C (100.7 F) Resp 18 Wt 58 kg (127 lb 13.9 oz) LMP (LMP Unknown) SpO2 98% BMI 25.10 kg/m 09/03/2023 11/16/2023 01/12/2024 03/14/2024 03/28/2024 08/26/2024 10/24/2024 Vitals Pulse 104 91 100 97 88 96 132 ! PHYSICAL EXAM: GEN: mildly ill appearing, sitting holding abdomen HEENT: PERRL, EOMI, conjunctiva clear Throat: moist mucous membranes, Neck: supple, no thyromegaly, no lymphadenopathy HEART: fast rate, regular rhythm, no murmurs LUNGS: clear to auscultation, no wheezes or crackles, no increased WOB ABD: voluntary guarding, non-distended, general discomfort, no masses ASSESSMENT/PLAN: 1. Generalized abdominal pain - ICD9: 789.07, ICD10: R10.84 (primary diagnosis) 2. Fever, unspecified fever cause - ICD9: 780.60, ICD10: R50.9 3. Tachycardia - ICD9: 785.0, ICD10: R00.0 Fever, abdominal pain, lightheadedness, tachycardia, anorexia, and lack of bowel movements are all flags for a potential serious abdominal issue. She has no URI or vomiting/diarrhea but would like raegan checked for the flu. - INFLUENZA A&B MOLECULAR (POC) - negative Encouraged to seek further evaluation in the ED. She is reluctant to go because she has no insurance but agrees to go to [place] or [place] which are [facility] facilities. Diogenes Lim MD documented in this encounterPro[facility]12-27-[facility]24 NoteHNO ID: [id number] Author: ANMOL BEAULIEU APRN.CURING PRESS OPERATOR Service: ? Author Type: Nurse Practitioner Type: Progress Notes Filed: 08/26/2024 14:38 Note Text: Subjective HPI Nontoxic-appearing female presents urgent care chief complaint cough chest congestion fatigue. States initially did have body aches chills loose stools. The symptoms have improved. Cough is became productive. Does have some wheezing. OTC medications with no success. Sick contacts at work. Negative COVID home 19 test. Denies any chest pain hemoptysis or pleuritic pain. Past medical history prescription medications allergies reviewed. .Patient presents with: Cough: Chest congestion, head congestion, lightheaded, diarrhea, wheeze x 1 week PAST MEDICAL HISTORY Diagnosis Date Anxiety Depression Emphysema lung (HCC) 08/14/2016 Hypokalemia Hypomagnesemia Low HDL (under 40) PAST SURGICAL HISTORY Procedure Laterality Date COLONOSCOPY 08/19/2016 EGD 08/19/2016 ALLERGIES Prozac [Fluoxetine Hcl] and Wellbutrin [Bupropion Hcl] MEDICATIONS albuterol HFA (PROVENTIL HFA, VENTOLIN HFA) 90 mcg/actuation inhaler Inhale 2 Puffs as instructed every 4 hours as needed for wheezing/shortness of breath. doxycycline (VIBRA-TABS) 100 mg tablet Take 1 tablet by mouth two times a day for 7 days. predniSONE (DELTASONE) 10 mg tablet Take 4 tablets by mouth once daily for 5 days. FAMILY HISTORY Problem Relation Age of Onset Breast Cancer Mother Heart Maternal Grandmother Diabetes Maternal Grandmother Arthritis Maternal Uncle Breast Cancer Sister Breast Cancer Paternal Aunt Social History Tobacco Use Smoking status: Every Day Current packs/day: 1.00 Average packs/day: 1 pack/day for 25.0 years (25.0 ttl pk-yrs) Types: Cigarettes Smokeless tobacco: Never Vaping Use Vaping status: Never Used Substance Use Topics Alcohol use: No Drug use: Not Currently Types: Marijuana BP 112/75 Pulse 96 Temp 37.1 ?C (98.8 ?F) Resp 22 Wt 59 kg (130 lb 1.1 oz) LMP (LMP Unknown) SpO2 98% BMI 25.54 kg/m? Review of Systems Constitutional: Positive for malaise/fatigue. Negative for chills and fever. HENT: Positive for congestion and sore throat. Negative for ear discharge, ear pain and sinus pain. Eyes: Negative for blurred vision, pain, discharge and redness. Respiratory: Positive for cough, sputum production and wheezing. Negative for hemoptysis, shortness of breath and stridor. Cardiovascular: Negative for chest pain. Gastrointestinal: Negative for abdominal pain, diarrhea, nausea and vomiting. Musculoskeletal: Positive for myalgias. Skin: Negative for itching and rash. Neurological: Negative for dizziness and headaches. Objective Physical Exam Constitutional: General: She is not in acute distress. Appearance: She is not diaphoretic. HENT: Head: Normocephalic. Jaw: No trismus, tenderness, swelling or pain on movement. Nose: No congestion. Mouth/Throat: Mouth: Mucous membranes are moist. Pharynx: Oropharynx is clear. Uvula midline. No pharyngeal swelling, oropharyngeal exudate, posterior oropharyngeal erythema or uvula swelling. Eyes: Conjunctiva/sclera: Conjunctivae normal. Pupils: Pupils are equal, round, and reactive to light. Cardiovascular: Rate and Rhythm: Normal rate and regular rhythm. Heart sounds: Normal heart sounds. Pulmonary: Effort: Pulmonary effort is normal. No tachypnea, accessory muscle usage or respiratory distress. Breath sounds: No stridor. Wheezing present. No rhonchi or rales. Abdominal: General: There is no distension. Palpations: Abdomen is soft. Tenderness: There is no abdominal tenderness. There is no guarding or rebound. Musculoskeletal: Cervical back: Normal range of motion and neck supple. No edema, erythema, rigidity or tenderness. No pain with movement. Normal range of motion. Lymphadenopathy: Cervical: No cervical adenopathy. Skin: General: Skin is warm and dry. Neurological: Mental Status: She is alert and oriented to person, place, and time. ASSESSMENT/PLAN: 1. Bronchitis - ICD9: 490, ICD10: J40 Bronchitis. Smoker history of lung disease. Placed on doxycycline and prednisone. Patient was educated on supportive therapies. Patient will follow up with primary care provider as needed. Patient was instructed to immediately proceed to emergency room for any new, worsening, or symptoms lasting longer than anticipated. The patient's clinical presentation is otherwise unremarkable at this time. Based on exam and clinical finding, the patient is stable for discharge. Plan of care was discussed with patient. Patient verbalizes understanding and agrees to plan of care. This note was generated using [employer] software. It may contain errors in wording, punctuation, or spelling. Anmol Beaulieu APRN.[facility]12-27-2024 History of Present illness Narrative* Anmol Beaulieu APRN.CURING PRESS OPERATOR - 08/26/2024 2:33 PM EST Subjective HPI Nontoxic-appearing female presents urgent care chief complaint cough chest congestion fatigue. States initially did have body aches chills loose stools. The symptoms have improved. Cough is became productive. Does have some wheezing. OTC medications with no success. Sick contacts at work. Negative COVID home 19 test. Denies any chest pain hemoptysis or pleuritic pain. Past medical history prescription medications allergies reviewed. .Patient presents with: Cough: Chest congestion, head congestion, lightheaded, diarrhea, wheeze x 1 week PAST MEDICAL HISTORY Diagnosis Date Anxiety Depression Emphysema lung (HCC) 08/14/2016 Hypokalemia Hypomagnesemia Low HDL (under 40) PAST SURGICAL HISTORY Procedure Laterality Date COLONOSCOPY 08/19/2016 EGD 08/19/2016 ALLERGIES Prozac [Fluoxetine Hcl] and Wellbutrin [Bupropion Hcl] MEDICATIONS albuterol HFA (PROVENTIL HFA, VENTOLIN HFA) 90 mcg/actuation inhaler Inhale 2 Puffs as instructed every 4 hours as needed for wheezing/shortness of breath. doxycycline (VIBRA-TABS) 100 mg tablet Take 1 tablet by mouth two times a day for 7 days. predniSONE (DELTASONE) 10 mg tablet Take 4 tablets by mouth once daily for 5 days. FAMILY HISTORY Problem Relation Age of Onset Breast Cancer Mother Heart Maternal Grandmother Diabetes Maternal Grandmother Arthritis Maternal Uncle Breast Cancer Sister Breast Cancer Paternal Aunt Social History Tobacco Use Smoking status: Every Day Current packs/day: 1.00 Average packs/day: 1 pack/day for 25.0 years (25.0 ttl pk-yrs) Types: Cigarettes Smokeless tobacco: Never Vaping Use Vaping status: Never Used Substance Use Topics Alcohol use: No Drug use: Not Currently Types: Marijuana BP 112/75 Pulse 96 Temp 37.1 C (98.8 F) Resp 22 Wt 59 kg (130 lb 1.1 oz) LMP (LMP Unknown) SpO2 98% BMI 25.54 kg/m Review of Systems Constitutional: Positive for malaise/fatigue. Negative for chills and fever. HENT: Positive for congestion and sore throat. Negative for ear discharge, ear pain and sinus pain. Eyes: Negative for blurred vision, pain, discharge and redness. Respiratory: Positive for cough, sputum production and wheezing. Negative for hemoptysis, shortnessof breath and stridor. Cardiovascular: Negative for chest pain. Gastrointestinal: Negative for abdominal pain, diarrhea, nausea and vomiting. Musculoskeletal: Positive for myalgias. Skin: Negative for itching and rash. Neurological: Negative for dizziness and headaches. Objective Physical Exam Constitutional: General: She is not in acute distress. Appearance: She is not diaphoretic. HENT: Head: Normocephalic. Jaw: No trismus, tenderness, swelling or pain on movement. Nose: No congestion. Mouth/Throat: Mouth: Mucous membranes are moist. Pharynx: Oropharynx is clear. Uvula midline. No pharyngeal swelling, oropharyngeal exudate, posterior oropharyngeal erythema or uvula swelling. Eyes: Conjunctiva/sclera: Conjunctivae normal. Pupils: Pupils are equal, round, and reactive to light. Cardiovascular: Rate and Rhythm: Normal rate and regular rhythm. Heart sounds: Normal heart sounds. Pulmonary: Effort: Pulmonary effort is normal. No tachypnea, accessory muscle usage or respiratory distress. Breath sounds: No stridor. Wheezing present. No rhonchi or rales. Abdominal: General: There is no distension. Palpations: Abdomen is soft. Tenderness: There is no abdominal tenderness. There is no guarding or rebound. Musculoskeletal: Cervical back: Normal range of motion and neck supple. No edema, erythema, rigidity or tenderness. No pain with movement. Normal range of motion. Lymphadenopathy: Cervical: No cervical adenopathy. Skin: General: Skin is warm and dry. Neurological: Mental Status: She is alert and oriented to person, place, and time. ASSESSMENT/PLAN: 1. Bronchitis - ICD9: 490, ICD10: J40 Bronchitis. Smoker history of lung disease. Placed on doxycycline and prednisone. Patient was educated on supportive therapies. Patient will follow up with primary care provider as needed. Patient was instructed to immediately proceed to emergency room for any new, worsening, or symptoms lasting longer than anticipated. The patient's clinical presentation is otherwise unremarkable at this time. Based on exam and clinical finding, the patient is stable for discharge. Plan of care was discussed with patient. Patient verbalizes understanding and agrees to plan of care. This note was generated using [employer] software. It may contain errors in wording, punctuation, or spelling. Anmol Beaulieu APRN.SERVANDO documented in this encounterProtestant [facility]07-29-2024 NoteHNO ID: [id number] Author: QIAN SOMERS PA-C Service: ? Author Type: Physician Page Technician Type: Progress Notes Filed: 03/28/2024 11:43 Note Text: Chief Complaint Patient presents with: Diarrhea HPI Jenna Valadez is a 53 year old female who presents here today for Above Complaints.. Patient states that since she started lexapro she has had increased IBS like issues and diarrhea. She states she has had mild IBS issues for years but with lexapro has been worse. Diarrhea multiple times a day associated with cramping. Past medical history, appointments, medications, allergies reviewed. Previous Medical History PAST MEDICAL HISTORY Diagnosis Date Anxiety Depression Emphysema lung (HCC) 08/14/2016 Hypokalemia Hypomagnesemia Low HDL (under 40) Previous Surgical History PAST SURGICAL HISTORY Procedure Laterality Date COLONOSCOPY 08/19/2016 EGD 08/19/2016 Family History FAMILY HISTORY Problem Relation Age of Onset Breast Cancer Mother Heart Maternal Grandmother Diabetes Maternal Grandmother Arthritis Maternal Uncle Breast Cancer Sister Breast Cancer Paternal Aunt Patient Allergies ALLERGIES Allergen Reactions Prozac [Fluoxetine * Other: See Comments headaches Wellbutrin [Bupropi* Other: See Comments Increased anxiety and stomach ache Current Medications Current Outpatient Medications on File Prior to Visit Medication Sig meloxicam (MOBIC) 15 mg tablet Take 1 tablet by mouth once daily. With food. albuterol HFA (PROVENTIL HFA, VENTOLIN HFA) 90 mcg/actuation inhaler Inhale 2 Puffs as instructed every 4 hours as needed for wheezing/shortness of breath. fluticasone (FLONASE) 50 mcg/actuation nasal spray Use 2 Sprays in each nostril once daily. Rinse mouth after use. cholecalciferol, Vitamin D3, (VITAMIN D3) 1,250 mcg (50,000 unit) cap capsule Take 1 capsule by mouth one time a week. potassium chloride ER (KLOR-CON M20) 20 mEq tablet Take 1 tablet by mouth once daily. No current facility-administered medications on file prior to visit. Social History Social History Tobacco Use Smoking status: Every Day Packs/day: 1.00 Years: 25.00 Additional pack years: 0.00 Total pack years: 25.00 Types: Cigarettes Smokeless tobacco: Never Vaping Use Vaping Use: Never used Substance Use Topics Alcohol use: No Drug use: Not Currently Types: Marijuana Review of Symptoms REVIEW OF SYSTEMS See hpi EXAM: BP 100/62 (BP Site: Left Arm, BP Position: Sitting, BP Cuff Size: Large Adult) Pulse 88 Temp 37.2 ?C (99 ?F) Resp 16 Wt 55.8 kg (123 lb) LMP (LMP Unknown) SpO2 97% BMI 24.15 kg/m? General Appearance: Well appearing, alert, in no acute distress, well-hydrated, well nourished.. Abdomen: Normal abdominal exam, Abdomen soft, non-tender. Bowel sounds normal. No masses, organomegaly. Health Maintenance List Hepatitis B Vaccine(1 of 3 - 19+ 3-dose series) Never done Alpha-1 Antitrypsin Deficiency Screening Never done Mammogram Screening due on 08/04/2017 Shingrix Vaccine(1 of 2) Never done Covid-19 Vaccine( season) due on 05/01/2023 Hepatitis C Screening due on 01/11/2025 HIV Screening due on 01/11/2025 Spirometry due on 03/14/2025 Lung Cancer Screening due on 03/14/2025 Cervical Cancer Screening due on 03/14/2025 Influenza Vaccine(1) due on 05/01/2024 Annual PCP Team Chronic Disease Visit due on 03/14/2025 DTaP,Tdap,Td Vaccine(2 - Td or Tdap) due on 04/15/2026 Colorectal Cancer Screening due on 08/19/2026 Diabetes Screening due on 01/11/2027 Lipid Screening due on 01/11/2029 Pneumococcal Vaccine(3 of 3 - PPSV23 or PCV20) due on 2033 HPV Vaccine Aged Out Data reviewed ASSESSMENT/PLAN: 1. Diarrhea, unspecified type - ICD9: 787.91, ICD10: R19.7 Will see if stopping lexapro helps. If no improvement, will consider testing. [facility] History of Present illness Narrative* Qian Somers PA-C - 03/28/2024 10:18 AM EDT Chief Complaint Patient presents with: Diarrhea HPI Jenna Valadez is a 53 year old female who presents here today for Above Complaints.. Patient states that since she started lexapro she has had increased IBS like issues and diarrhea. She states she has had mild IBS issues for years but with lexapro has been worse. Diarrhea multiple times a day associated with cramping. Past medical history, appointments, medications, allergies reviewed. Previous Medical History PAST MEDICAL HISTORY Diagnosis Date Anxiety Depression Emphysema lung (HCC) 08/14/2016 Hypokalemia Hypomagnesemia Low HDL (under 40) Previous Surgical History PAST SURGICAL HISTORY Procedure Laterality Date COLONOSCOPY 08/19/2016 EGD 08/19/2016 Family History FAMILY HISTORY Problem Relation Age of Onset Breast Cancer Mother Heart Maternal Grandmother Diabetes Maternal Grandmother Arthritis Maternal Uncle Breast Cancer Sister Breast Cancer Paternal Aunt Patient Allergies ALLERGIES Allergen Reactions Prozac [Fluoxetine * Other: See Comments headaches Wellbutrin [Bupropi* Other: See Comments Increased anxiety and stomach ache Current Medications Current Outpatient Medications on File Prior to Visit Medication Sig meloxicam (MOBIC) 15 mg tablet Take 1 tablet by mouth once daily. With food. albuterol HFA (PROVENTIL HFA, VENTOLIN HFA) 90 mcg/actuation inhaler Inhale 2 Puffs as instructed every 4 hours as needed for wheezing/shortness of breath. fluticasone (FLONASE) 50 mcg/actuation nasal spray Use 2 Sprays in each nostril once daily. Rinse mouth after use. cholecalciferol, Vitamin D3, (VITAMIN D3) 1,250 mcg (50,000 unit) cap capsule Take 1 capsule by mouth one time a week. potassium chloride ER (KLOR-CON M20) 20 mEq tablet Take 1 tablet by mouth once daily. No current facility-administered medications on file prior to visit. Social History Social History Tobacco Use Smoking status: Every Day Packs/day: 1.00 Years: 25.00 Additional pack years: 0.00 Total pack years: 25.00 Types: Cigarettes Smokeless tobacco: Never Vaping Use Vaping Use: Never used Substance Use Topics Alcohol use: No Drug use: Not Currently Types: Marijuana Review of Symptoms REVIEW OF SYSTEMS See hpi EXAM: BP 100/62 (BP Site: Left Arm, BP Position: Sitting, BP Cuff Size: Large Adult) Pulse 88 Temp 37.2 C (99 F) Resp 16 Wt 55.8 kg (123 lb) LMP (LMP Unknown) SpO2 97% BMI 24.15 kg/m General Appearance: Well appearing, alert, in no acute distress, well-hydrated, well nourished.. Abdomen: Normal abdominal exam, Abdomen soft, non-tender. Bowel sounds normal. No masses, organomegaly. Health Maintenance List Hepatitis B Vaccine(1 of 3 - 19+ 3-dose series) Never done Alpha-1 Antitrypsin Deficiency Screening Never done Mammogram Screening due on 08/04/2017 Shingrix Vaccine(1 of 2) Never done Covid-19 Vaccine() due on 05/01/2023 Hepatitis C Screening due on 01/11/2025 HIV Screening due on 01/11/2025 Spirometry due on 03/14/2025 Lung Cancer Screening due on 03/14/2025 Cervical Cancer Screening due on 03/14/2025 Influenza Vaccine(1) due on 05/01/2024 Annual PCP Team Chronic Disease Visit due on 03/14/2025 DTaP,Tdap,Td Vaccine(2 - Td or Tdap) due on 04/15/2026 Colorectal Cancer Screening due on 08/19/2026 Diabetes Screening due on 01/11/2027 Lipid Screening due on 01/11/2029 Pneumococcal Vaccine(3 of 3 - PPSV23 or PCV20) due on 2033 HPV Vaccine Aged Out Data reviewed ASSESSMENT/PLAN: 1. Diarrhea, unspecified type - ICD9: 787.91, ICD10: R19.7 Will see if stopping lexapro helps. If no improvement, will consider testing. Patient to keep follow up with psych Qian Somers PA-C documented in this encounterProtest[facility]07-28-2024 Telephone encounter Note * Telephone Encounter - Caroline Ragsdael RN - 03/27/2024 1:02 PM EDT Reason for Call: diarrhea Outcome: Advised to be seen within 24 hours. Caller conferenced to Laila in appointment center for available appointment in office of PCP. Caller also given alternate options for care including [facility], emergency department for worsening symptoms. Caroline Ragsdale RN Reason for Disposition Abdominal pain (Exception: Pain clears with each passage of diarrhea stool.) Answer Assessment - Initial Assessment Questions 1. DIARRHEA SEVERITY: MILD: 2 watery stools in last 24 hours 2. ONSET: One day after starting lexapro, and usually worst in the mornings when waking up. 3. BM CONSISTENCY: Watery 4. VOMITING: Denies 5. ABDOMEN PAIN: Cramps, intermittent 6. ABDOMEN PAIN SEVERITY: 3/10 7. ORAL INTAKE: Denies vomiting, reports taking in plenty of fluids 8. HYDRATION: Last urine output 15 minutes ago 9. EXPOSURE: Denies 10. ANTIBIOTIC USE: Denies, recently started on Lexapro 11. OTHER SYMPTOMS: Denies Took pepto this morning, and it maybe helped a little bit 12. : Deferred Protocols used: [id number] [facility]07-28-[facility] Miscellaneous Notes* Telephone Encounter - Caroline Ragsdale RN - 03/27/2024 1:02 PM EDT Reason for Call: diarrhea Outcome: Advised to be seen within 24 hours. Caller conferenced to Laila in appointment center for available appointment in office of PCP. Caller also given alternate options for care including [facility], emergency department for worsening symptoms. Caroline Ragsdale RN Reason for Disposition Abdominal pain (Exception: Pain clears with each passage of diarrhea stool.) Answer Assessment - Initial Assessment Questions 1. DIARRHEA SEVERITY: MILD: 2 watery stools in last 24 hours 2. ONSET: One day after starting lexapro, and usually worst in the mornings when waking up. 3. BM CONSISTENCY: Watery 4. VOMITING: Denies 5. ABDOMEN PAIN: Cramps, intermittent 6. ABDOMEN PAIN SEVERITY: 3/10 7. ORAL INTAKE: Denies vomiting, reports taking in plenty of fluids 8. HYDRATION: Last urine output 15 minutes ago 9. EXPOSURE: Denies 10. ANTIBIOTIC USE: Denies, recently started on Lexapro 11. OTHER SYMPTOMS: Denies Took pepto this morning, and it maybe helped a little bit 12. : Deferred Protocols used: [id number] documented in this encounterProtest[facility]-16-[facility]24 Telephone encounter Note * Telephone Encounter - Shelia Blackmon RN - 03/15/2024 10:03 AM EDT Patient notified of results and provider's instructions. Patient verbalizes understanding. Shelia Blackmon RN [facility] Miscellaneous Notes* Telephone Encounter - Shelia Blackmon RN - 03/15/2024 10:03 AM EDT Patient notified of results and provider's instructions. Patient verbalizes understanding. Shelia Blackmon RN * Telephone Encounter - Ashly Gerber LPN - 03/15/2024 9:59 AM EDT Left message for pt to contact office. Ashly Gerber LPN * Telephone Encounter - Qian Somers PA-C - 03/15/2024 9:20 AM EDT Vit D level is slightly elevated. So no extra vit D needed at this time. Repeat in 3 months. documented in this encounterProtestant [facility]07-16-2024 Telephone encounter Note * Telephone Encounter - Ashly Gerber LPN - 03/15/2024 9:59 AM EDT Left message for pt to contact office. Ashly Gerber LPN [facility]07-[facility] Telephone encounter Note* Telephone Encounter - Qian Somers PA-C - 03/15/2024 9:20 AM EDT Vit D level is slightly elevated. So no extra vit D needed at this time. Repeat in 3 months. [facility] Instructions* Patient Instructions* Qian Somers PA-C - 03/14/2024 10:39 AM EDT Try wrist splints for carpal tunnel at night. documented in this encounterProtestant [facility]acon[facility]07-15-2024 History of Present illness Narrative* Qian Somers PA-C - 03/14/2024 10:21 AM EDT Chief Complaint Patient presents with: Physical HPI Jenna Valadez is a 53 year old female who presents here today for physical. Patient with hx of anxiety, emphysema, smoker, and those as below. Patient has been dx with PTSD and KELSI from counseling. She is willing to try medications again. Plans to try to stay on them rather then d/c. Having joint pain. Knees and hands. Will wake up with hand pain and numbness. Past medical history, appointments, medications, allergies reviewed. Previous Medical History PAST MEDICAL HISTORY Diagnosis Date Anxiety Depression Emphysema lung (HCC) 08/14/2016 Hypokalemia Hypomagnesemia Low HDL (under 40) Previous Surgical History PAST SURGICAL HISTORY Procedure Laterality Date COLONOSCOPY 08/19/2016 EGD 08/19/2016 Family History FAMILY HISTORY Problem Relation Age of Onset Breast Cancer Mother Heart Maternal Grandmother Diabetes Maternal Grandmother Arthritis Maternal Uncle Breast Cancer Sister Breast Cancer Paternal Aunt Patient Allergies ALLERGIES Allergen Reactions Prozac [Fluoxetine * Other: See Comments headaches Wellbutrin [Bupropi* Other: See Comments Increased anxiety and stomach ache Current Medications Current Outpatient Medications on File Prior to Visit Medication Sig cholecalciferol, Vitamin D3, (VITAMIN D3) 1,250 mcg (50,000 unit) cap capsule Take 1 capsule by mouth one time a week. albuterol HFA (PROVENTIL HFA, VENTOLIN HFA) 90 mcg/actuation inhaler Inhale 2 Puffs as instructed every 4 hours as needed for wheezing/shortness of breath. fluticasone (FLONASE) 50 mcg/actuation nasal spray Use 2 Sprays in each nostril once daily. Rinse mouth after use. potassium chloride ER (KLOR-CON M20) 20 mEq tablet Take 1 tablet by mouth once daily. No current facility-administered medications on file prior to visit. Social History Social History Tobacco Use Smoking status: Every Day Packs/day: 1.00 Years: 25.00 Additional pack years: 0.00 Total pack years: 25.00 Types: Cigarettes Smokeless tobacco: Never Tobacco comments: 1/2 pack per day Vaping Use Vaping Use: Never used Substance Use Topics Alcohol use: No Drug use: Yes Types: Marijuana Review of Symptoms REVIEW OF SYSTEMS GENERAL: No weight loss, malaise or fevers HEENT: Negative for frequent or significant headaches, No changes in hearing or vision, no nose bleeds or other nasal problems NECK: Negative for lumps, goiter, pain and significant neck swelling RESPIRATORY: Negative for cough, hemoptysis, wheezing, COPD, dyspnea or shortness of breath CARDIOVASCULAR: Negative for chest pain, leg swelling, hypertension, CHF or palpitations GI: Negative for abdominal discomfort, blood in stools or black stools, change in bowel habit, heart burn, nausea, vomiting : No history of dysuria, frequency or incontinence MUSCULOSKELETAL: see hpi SKIN: Negative for lesions, rash, and itching PSYCH: See HPI HEMATOLOGY/LYMPHOLOGY: Negative for prolonged bleeding, bruising easily or swollen nodes ENDOCRINE: Negative for cold or heat intolerance, polyuria, polydipsia and goiter NEURO: No history of headaches, syncope, paralysis, seizures or tremors EXAM: BP 102/78 (BP Site: Right Arm, BP Position: Sitting, BP Cuff Size: Regular Adult) Pulse 97 Temp36.6 C (97.8 F) Resp 16 Ht 152 cm (4' 11.84) Wt 55.8 kg (123 lb) LMP (LMP Unknown) SpO2 99% BMI 24.15 kg/m General Appearance: Well appearing, alert, in no acute distress, well-hydrated, well nourished.. Skin: Skin color, texture, turgor normal, no suspicious rashes or lesions. Head: Normocephalic, no masses, lesions, tenderness or abnormalities. Eyes: Anicteric sclera. Pupils are equally round and reactive to light. Extraocular movements are intact. . Ears: External ears normal, canals clear. Nose/Sinuses: Nares normal, septum midline, mucosa normal, no drainage or sinus tenderness. Oropharynx: Lips, mucosa, and tongue normal, teeth and gums normal, oropharynx normal. Neck: Supple, no adenopathy; thyroid symmetric, normal size, no bruits. Lungs: Lungs clear to auscultation. No wheezing, rhonchi, rales.. Heart: RRR without murmur, gallop, or rubs. No ectopy. Abdomen: Normal abdominal exam, Abdomen soft, non-tender. Bowel sounds normal. No masses, organomegaly. Extremities: No deformities, edema, skin discoloration, clubbing or cyanosis. Good capillary refill. . Musculoskeletal: No joint swelling, deformity, or tenderness. Peripheral Pulses: Normal. Neurologic: Gait normal. Reflexes normal and symmetric. Sensation grossly intact.. Health Maintenance List Spirometry Never done Hepatitis B Vaccine(1 of 3 - 19+ 3-dose series) Never done Alpha-1 Antitrypsin Deficiency Screening Never done Mammogram Screening due on 08/04/2017 Lung Cancer Screening due on 2018 Shingrix Vaccine(1 of 2) Never done Cervical Cancer Screening due on 09/08/2021 Covid-19 Vaccine(2022- season) due on 05/01/2023 Hepatitis C Screening due on 01/11/2025 HIV Screening due on 01/11/2025 Influenza Vaccine(1) due on 05/01/2024 Annual PCP Team Chronic Disease Visit due on 01/11/2025 DTaP,Tdap,Td Vaccine(2 - Td or Tdap) due on 04/15/2026 Colorectal Cancer Screening due on 08/19/2026 Diabetes Screening due on 01/11/2027 Lipid Screening due on 01/11/2029 Pneumococcal Vaccine(3 of 3 - PPSV23 or PCV20) due on 2033 HPV Vaccine Aged Out Data reviewed ASSESSMENT/PLAN: 1. Well adult exam - ICD9: V70.0, ICD10: Z00.00 (primary diagnosis) - Counseled on healthy diet and regular exercise - Mammogram ordered - exam recommended once yearly 2. Chronic pain of both knees - ICD9: 719.46, 338.29, ICD10: M25.561, M25.562, G89.29 Start mobic 3. Hyperlipidemia, mixed - ICD9: 272.2, ICD10: E78.2 - Improving control - Counseled on healthy diet and regular exercise 4. Smoker - ICD9: 305.1, ICD10: F17.200 - Cessation encouraged. - Physiologic and physical aspects of tobacco addiction as well as strategies for quitting were discussed. - Counseling was given focusing on the harmful effects of this addiction especially given the patient's medical condition(s) which will be worsened because of the chemicals in tobacco. 5. PTSD (post-traumatic stress disorder) - ICD9: 309.81, ICD10: F43.10 Continue with psych appt next month But will start lexapro now. 6. KELSI (generalized anxiety disorder) - ICD9: 300.02, ICD10: F41.1 As above 7. Vitamin D deficiency - ICD9: 268.9, ICD10: E55.9 Await repeat lab to determine next dosing needs. Follow up in 6 months. Qian Somers PA-C documented in this encounterProtest[facility]06-10-[facility]24 Telephone encounter Note * Telephone Encounter - Shelia Blackmon RN - 02/08/2024 11:47 AM EDT Patient calls back. Appointment rescheduled for a 40 min Physical Appointment. Shelia Blackmon RN [facility]06-10-[facility]24 Miscellaneous Notes* Telephone Encounter - Shelia Blackmon RN - 02/08/2024 11:47 AM EDT Patient calls back. Appointment rescheduled for a 40 min Physical Appointment. Shelia Blackmon, RN * Telephone Encounter - Ermelinda Nascimento OCCA - 02/08/2024 9:31 AM EDT TC no answer. Left VM to return call. GASTON Maldonado * Telephone Encounter - Qian Somers PA-C - 02/08/2024 7:56 AM EDT Patient is scheduled for 20 min visit in February for recheck vit D. I asked for patient to be scheduled for a physical. Please reschedule to correct. Thanks. Qian Somers PA-C documented in this encounterProtestant [facility]06-10-2024 Telephone encounter Note * Telephone Encounter - Ermelinda Nascimento OCCA - 02/08/2024 9:31 AM EDT TC no answer. Left VM to return call. GSATON Maldonado [facility]06-10-2024 Telephone encounter Note* Telephone Encounter - Qian Somers PA-C - 02/08/2024 7:56 AM EDT Patient is scheduled for 20 min visit in February for recheck vit D. I asked for patient to be scheduled for a physical. Please reschedule to correct. Thanks. Qian Somers PA-C [facility]05-16-2024 Telephone encounter Note* Telephone Encounter - Qian Somers PA-C - 01/14/2024 12:49 PM EDT Noted. Qian Somers PA-C [place] [id number] Miscellaneous Notes* Telephone Encounter - Qian Somers PA-C - 01/14/2024 12:49 PM EDT Noted. Qian Somers PA-C * Telephone Encounter - Shelia Blackmon RN - 01/14/2024 12:46 PM EDT Patient calls and notified of provider recommendations. Patient states that she is starting a new counseling place that starts with an A. Patient states that they do not prescribe medications and will need information from provider. Advised patient that she can have them request information when she sees provider. Shelia Blackmon RN * Telephone Encounter - Dev Chappell LPN - 01/14/2024 12:10 PM EDT Left message for patient to call and speak with nurse. * Telephone Encounter - Qian Somers PA-C - 01/14/2024 11:17 AM EDT No. I want her to see psych before starting any medications. She could contact [facility] to see if they can see her sooner. Or check with [facility] to see if they still have their psych provider. Qian Somers PA-C * Telephone Encounter - Dev Chappell LPN - 01/14/2024 11:13 AM EDT Asking about order for antidepressant. Thought that was going to have something ordered until she was seen in March advised her that would check. * Telephone Encounter - Qian Somers PA-C - 01/13/2024 1:33 PM EDT TIBC is high but her iron and Transferrin Saturation % is normal. I'm not concerned by elevated TIBC levels. No, I will not give work excuse. We didn't discuss taking time off from work. Qian Somers PA-C * Telephone Encounter - Amanda Tesfaye LPN - 01/13/2024 12:03 PM EDT Patient notified. States that she saw her TBIC is extremely elevated and wants to know what to doabout that. Also states she called off work today because she does not feel well. Asking if she can have a workexcuse. Please advise. * Telephone Encounter - Qian Somers PA-C - 01/13/2024 11:14 AM EDT Let patient knw that her vit D level is low. Will start her on vit D supplement. Repeat labs in 2 months. Cholesterol is high but improved compared to 3 years ago. Needs to work on diet. Rest of labs are normal. Qian Somers PA-C documented in this encounterProtest[facility]05-16-2024 Telephone encounter Note * Telephone Encounter - Shelia Blackmon RN - 01/14/2024 12:46 PM EDT Patient calls and notified of provider recommendations. Patient states that she is starting a new counseling place that starts with an A. Patient states that they do not prescribe medications and will need information from provider. Advised patient that she can have them request information when she sees provider. Shelia Blackmon, RN [facility]05-16-[facility]24 Telephone encounter Note* Telephone Encounter - Dev Chappell LPN - 01/14/2024 12:10 PM EDT Left message for patient to call and speak with nurse. [facility]05-16-[facility] Telephone encounter Note* Telephone Encounter - Qian Somers PA-C - 01/14/2024 11:17 AM EDT No. I want her to see psych before starting any medications. She could contact [facility] to see if they can see her sooner. Or check with [facility] to see if they still have their psych provider. Qian Somers PA-C [facility]05-16-[facility] Telephone encounter Note* Telephone Encounter - Dev Chappell LPN - 01/14/2024 11:13 AM EDT Asking about order for antidepressant. Thought that was going to have something ordered until she was seen in March advised her that would check. [facility]05-15-[facility] Telephone encounter Note* Telephone Encounter - Qian Somers PA-C - 01/13/2024 1:33 PM EDT TIBC is high but her iron and Transferrin Saturation % is normal. I'm not concerned by elevated TIBC levels. No, I will not give work excuse. We didn't discuss taking time off from work. Qian Somers PA-C [facility]05-15-[facility] Telephone encounter Note* Telephone Encounter - Amanda Tesfaye LPN - 01/13/2024 12:03 PM EDT Patient notified. States that she saw her TBIC is extremely elevated and wants to know what to doabout that. Also states she called off work today because she does not feel well. Asking if she can have a workexcuse. Please advise. [facility]05-15-[facility] Telephone encounter Note* Telephone Encounter - Rossi Hurst RN - 01/13/2024 11:32 AM EDT Opened in error. Rossi Hurst RN [facility]05-15-2024 Miscellaneous Notes* Telephone Encounter - Rossi Hurst RN - 01/13/2024 11:32 AM EDT Opened in error. Rossi Hurst RN documented in this encounterProtestant [facility]05-15-2024 Telephone encounter Note * Telephone Encounter - Qian Somers PA-C - 01/13/2024 11:14 AM EDT Let patient knw that her vit D level is low. Will start her on vit D supplement. Repeat labs in 2 months. Cholesterol is high but improved compared to 3 years ago. Needs to work on diet. Rest of labs are normal. Qian Somers PA-C [facility]-14[facility] History of Present illness Narrative* Qian Somers PA-C - 01/12/2024 11:33 AM EDT Chief Complaint Patient presents with: Depression Ingrown Toenail: Both great toenails coming off HPI Jenna Valadez is a 53 year old female who presents here today for Above Complaints.. Patient has not been seen in 2 years. Patient states she doesn't feel like herself. She keeps quiting jobs without reason. States she feels like she has been isolating herself. But just started dating. She is smoking marijuana. She reports she is tired all the time. Her toenail just fell off. No injury but wears steel toe boots. She feels lightheaded often. Past medical history, appointments, medications, allergies reviewed. Previous Medical History PAST MEDICAL HISTORY Diagnosis Date Anxiety Depression Emphysema lung (HCC) 08/14/2016 Hypokalemia Hypomagnesemia Low HDL (under 40) Previous Surgical History PAST SURGICAL HISTORY Procedure Laterality Date COLONOSCOPY 08/19/2016 EGD 08/19/2016 Family History FAMILY HISTORY Problem Relation Age of Onset Breast Cancer Mother Heart Maternal Grandmother Diabetes Maternal Grandmother Arthritis Maternal Uncle Breast Cancer Sister Breast Cancer Paternal Aunt Patient Allergies ALLERGIES Allergen Reactions Prozac [Fluoxetine * Other: See Comments headaches Wellbutrin [Bupropi* Other: See Comments Increased anxiety and stomach ache Current Medications Current Outpatient Medications on File Prior to Visit Medication Sig albuterol HFA (PROVENTIL HFA, VENTOLIN HFA) 90 mcg/actuation inhaler Inhale 2 Puffs as instructed every 4 hours as needed for wheezing/shortness of breath. fluticasone (FLONASE) 50 mcg/actuation nasal spray Use 2 Sprays in each nostril once daily. Rinse mouth after use. potassium chloride ER (KLOR-CON M20) 20 mEq tablet Take 1 tablet by mouth once daily. escitalopram oxalate (LEXAPRO) 10 mg tablet Take 1 tablet by mouth once daily. (Patient not taking:Reported on 12/21/2022) No current facility-administered medications on file prior to visit. Social History Social History Tobacco Use Smoking status: Every Day Packs/day: 1.00 Years: 25.00 Additional pack years: 0.00 Total pack years: 25.00 Types: Cigarettes Smokeless tobacco: Never Tobacco comments: 1/2 pack per day Substance Use Topics Alcohol use: No Drug use: No Review of Symptoms REVIEW OF SYSTEMS See hpi EXAM: BP 115/77 (BP Site: Left Arm, BP Position: Sitting, BP Cuff Size: Regular Adult) Pulse 100 Temp36.6 C (97.8 F) Resp 16 Wt 56.2 kg (124 lb) LMP (LMP Unknown) SpO2 97% BMI 23.43 kg/m General Appearance: Well appearing, alert, in no acute distress, well-hydrated, well nourished.. Neck: Supple, no adenopathy; thyroid symmetric, normal size, no bruits. Lungs: Lungs clear to auscultation. No wheezing, rhonchi, rales.. Heart: RRR without murmur, gallop, or rubs. No ectopy. Peripheral Pulses: Normal. Health Maintenance List Spirometry Never done Hepatitis C Screening Never done HIV Screening Never done Hepatitis B Vaccine(1 of 3 - 19+ 3-dose series) Never done Alpha-1 Antitrypsin Deficiency Screening Never done Mammogram Screening due on 08/04/2017 Lung Cancer Screening due on 2018 Shingrix Vaccine(1 of 2) Never done Pap Testing due on 09/08/2021 HPV Testing due on 09/08/2021 Annual PCP Team Chronic Disease Visit due on 01/24/2023 Covid-19 Vaccine( season) due on 05/01/2023 Diabetes Screening due on 12/14/2023 Influenza Vaccine(Season Ended) due on 05/01/2024 Lipid Screening due on 12/13/2025 DTaP,Tdap,Td Vaccine(2 - Td or Tdap) due on 04/15/2026 Colorectal Cancer Screening due on 08/19/2026 Pneumococcal Vaccine(3 of 3 - PPSV23 or PCV20) due on 2033 HPV Vaccine Aged Out Data reviewed ASSESSMENT/PLAN: 1. Fatigue, unspecified type - ICD9: 780.79, ICD10: R53.83 (primary diagnosis) Check labs - COMPREHENSIVE METABOLIC PANEL - COMPLETE BLOOD COUNT AND DIFFERENTIAL - FOLATE, SERUM - URINALYSIS, WITH MICROSCOPIC - VITAMIN B12 - IRON AND TIBC - THYROID STIMULATING HORMONE - VITAMIN D 25 HYDROXY 2. Hypokalemia - ICD9: 276.8, ICD10: E87.6 Await labs 3. Encounter for lipid screening for cardiovascular disease - ICD9: V77.91, V81.2, ICD10: Z13.220, Z13.6 - LIPID PANEL, NONFASTING 4. Screening for diabetes mellitus - ICD9: V77.1, ICD10: Z13.1 - HEMOGLOBIN A1C 5. 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 Concerned for possible mood disorder - CONSULT TO PSYCHIATRY - VITAMIN D 25 HYDROXY 6. Mood disorder (HCC) - ICD9: 296.90, ICD10: F39 Will set up with psych for further evaluation - CONSULT TO PSYCHIATRY - VITAMIN D 25 HYDROXY 7. Vitamin D deficiency - ICD9: 268.9, ICD10: E55.9 - VITAMIN D 25 HYDROXY Qian Somers PA-C documented in this encounterProtestant [facility]05-10-2024 History of Present illness Narrative* Marcus Montes De Oca APRN.CNP - 01/08/2024 3:27 PM EDT Patient triaged at [facility]. Here today with weakness, almost passing out. Patient appears in no distress at time of triage. I will refer to ER. documented in this encounterProtestant [facility]acon[facility]03-18-2024 History of Present illness Narrative* Marcus Montes De Oca APRN.CNP - 11/16/2023 2:15 PM EDT Subjective HPI HPI Jenna Valadez is a 53 year old female who presents today for CC of cough, congestion, st. This started 2 days ago. Has tried otc medication for relief. Symptoms are worsened by nothing. Risk factors hx of emphysema, current smoker. Negative covid test at home. .Patient presents with: Cough: Cough, ST and chest congestion x 2 days PAST MEDICAL HISTORY Diagnosis Date Anxiety Depression Emphysema lung (HCC) 08/14/2016 Hypokalemia Hypomagnesemia Low HDL (under 40) PAST SURGICAL HISTORY Procedure Laterality Date COLONOSCOPY 08/19/2016 EGD 08/19/2016 ALLERGIES Prozac [Fluoxetine Hcl] and Wellbutrin [Bupropion Hcl] MEDICATIONS albuterol HFA (PROVENTIL HFA, VENTOLIN HFA) 90 mcg/actuation inhaler Inhale 2 Puffs as instructed every 4 hours as needed for wheezing/shortness of breath. fluticasone (FLONASE) 50 mcg/actuation nasal spray Use 2 Sprays in each nostril once daily. Rinse mouth after use. potassium chloride ER (KLOR-CON M20) 20 mEq tablet Take 1 tablet by mouth once daily. escitalopram oxalate (LEXAPRO) 10 mg tablet Take 1 tablet by mouth once daily. (Patient not taking:Reported on 12/21/2022) FAMILY HISTORY Problem Relation Age of Onset Breast Cancer Mother Heart Maternal Grandmother Diabetes Maternal Grandmother Arthritis Maternal Uncle Breast Cancer Sister Breast Cancer Paternal Aunt Social History Tobacco Use Smoking status: Every Day Packs/day: 1.00 Years: 25.00 Additional pack years: 0.00 Total pack years: 25.00 Types: Cigarettes Smokeless tobacco: Never Tobacco comments: 1/2 pack per day Substance Use Topics Alcohol use: No Drug use: No Review of Systems HENT: Positive for congestion and sore throat. Negative for ear pain and nosebleeds. Respiratory: Positive for cough and sputum production. Negative for shortness of breath and wheezing. Cardiovascular: Negative for chest pain. Musculoskeletal: Negative for neck pain. Skin: Negative for itching and rash. Objective Blood pressure 128/82, pulse 91, temperature 36.7 C (98.1 F), temperature source Tympanic, resp. rate 18, weight 58.9 kg (129 lb 13.6 oz), SpO2 99%. Physical Exam Constitutional: General: She is not in acute distress. Appearance: She is not toxic-appearing or diaphoretic. HENT: Head: Normocephalic and atraumatic. Cardiovascular: Rate and Rhythm: Normal rate and regular rhythm. Heart sounds: Normal heart sounds, S1 normal and S2 normal. Pulmonary: Effort: Pulmonary effort is normal. Breath sounds: Examination of the right-lower field reveals decreased breath sounds. Examination ofthe left-lower field reveals decreased breath sounds. Decreased breath sounds present. No wheezing,rhonchi or rales. Neurological: Mental Status: She is alert and oriented to person, place, and time. Gait: Gait is intact. ASSESSMENT/PLAN: 1. Sinobronchitis - ICD9: 473.9, 490, ICD10: J32.9, J40 Exam, vs normal today Start steroid, if s/s persist/worsen fill/take atb rx - Supportive care with plenty of fluids, rest, and analgesia prn. - Follow up in 3-5 days if symptoms persist or worsen. Declines covid testing today - DOXYCYCLINE HYCLATE 100 MG TABLET - PREDNISONE 10 MG TABLET Marcus Montes De Oca APRN.CURING PRESS OPERATOR documented in this encounterProtestant [facility]acon[facility]02-07-2024 History of Present illness Narrative* Ashly Gerber LPN - 10/07/2023 12:47 PM EST Scan on 10/06/2023 10:37 PM by Provider, External, IRAC: Miscellaneous Lab documented in this encounterProtestant Deacon[facility]11-21-2023 Miscellaneous Notes* Telephone Encounter - Alina Lee MA - 07/21/2023 9:12 AM EST Patient has her scheduled appointment. Alina Lee MA * Telephone Encounter - Alina Lee MA - 07/14/2023 2:22 PM EST Patient has been identified by name and date of : Yes Requested Prescriptions Pending Prescriptions Disp Refills potassium chloride ER (KLOR-CON M20) 20 mEq tablet 30 tablet 1 Sig: Take 1 tablet by mouth once daily. RX INSTRUCTIONS: Patient aware RX will be sent to pharmacy. No need to notify patient. Alina Lee MA Aimee 12/2021 Nov 08/2023 Last refill: 07/2022 documented in this encounterProtestant Deacon[facility]07-27-2023 History of Present illness Narrative* Lizbeth Lee APRN.CNP - 03/26/2023 8:23 AM EDT CC: Patient presents with: Diarrhea: Pt reported nasal congestion, diarrhea x4 days. HPI: Jenna Valadez is a 52 year old female who presents to the office with complaint of head congestion and sinus symptoms for a few days. Symptoms are staying the same. Associated symptoms includes diarrhea. Denies fever, nausea, and vomiting . Treatments tried include nothing so far. with no relief of symptoms. Sick contacts: unknown. History of asthma, frequent episodes of bronchitis, chronic bronchitis, bronchiectasis or COPD: No Smoker: No Seasonal/environmental allergies: No The ROS is otherwise negative. The patient's pmh, medications, allergies, and past visits are reviewed. PHYSICAL EXAM: BP 108/66 Pulse 93 Temp 37 C (98.6 F) (Temporal) Resp 16 Wt 56.7 kg (125 lb) LMP (LMP Unknown) SpO2 96% BMI 23.62 kg/m General appearance: alert, cooperative, pleasant, in no acute distress Head: Normocephalic Eyes: EOM's intact, conjunctiva pink and moist, no icterus, sclera white, non-injected Ears: Right ear: External ear/canal- Normal, TM - clear with good landmarks. Left ear: External ear/canal- Normal, TM - clear with good landmarks Oropharynx:moist without lesions, No erythema, exudates or tonsillar hypertrophy. Heart: Negative. RRR without obvious murmur, gallop, or rubs. No ectopy. Lungs: clear to auscultation, without rales or wheeze, good air exchange PAST MEDICAL HISTORY Diagnosis Date Anxiety Depression Emphysema lung (HCC) 08/14/2016 Hypokalemia Hypomagnesemia Low HDL (under 40) PAST SURGICAL HISTORY Procedure Laterality Date COLONOSCOPY 08/19/2016 EGD 08/19/2016 ALLERGIES Prozac [Fluoxetine Hcl] and Wellbutrin [Bupropion Hcl] MEDICATIONS albuterol HFA (PROVENTIL HFA, VENTOLIN HFA) 90 mcg/actuation inhaler Inhale 2 Puffs as instructed every 4 hours as needed for wheezing/shortness of breath. fluticasone (FLONASE) 50 mcg/actuation nasal spray Use 2 Sprays in each nostril once daily. Rinse mouth after use. potassium chloride ER (KLOR-CON M20) 20 mEq tablet Take 1 tablet by mouth once daily. predniSONE (DELTASONE) 20 mg tablet Take 2 tablets by mouth once daily for 4 days. Take daily with food. (Patient not taking: Reported on 03/26/2023) escitalopram oxalate (LEXAPRO) 10 mg tablet Take 1 tablet by mouth once daily. (Patient not taking:Reported on 12/21/2022) FAMILY HISTORY Problem Relation Age of Onset Breast Cancer Mother Heart Maternal Grandmother Diabetes Maternal Grandmother Arthritis Maternal Uncle Breast Cancer Sister Breast Cancer Paternal Aunt Social History Tobacco Use Smoking status: Every Day Packs/day: 1.00 Years: 25.00 Total pack years: 25.00 Types: Cigarettes Smokeless tobacco: Never Tobacco comments: 1/2 pack per day Substance Use Topics Alcohol use: No Drug use: No ASSESSMENT/PLAN: 1. URI, acute - ICD9: 465.9, ICD10: J06.9 - COVID WITH FLUA+B, ROUTINE Potential red flag symptoms discussed with the patient. Reviewed appropriate action plan to take ifred flag symptoms occur. Patient agreeable to treatment plan. Lizbeth Lee APRN.SERVANDO documented in this encounterProtestant [facility]05-04-2023 History of Present illness Narrative* Nely Schmidt APRN.SERVANDO - 01/01/2023 6:00 PM EDT This note was created using [email or web address]. Subjective Jenna Valadez is a 52 year old female. 52 year old female with PMH hyperlipidemia presents for complaints of illness. Acute onset 2 days ago +sore throat +right ear pain Slight cough +diarrhea Denies N/V Denies fever or chills. Works at [employer] and states multiple + strep cases +tobacco usage. The history is provided by the patient. No speech language specialist was used. Sore Throat This is a new problem. The current episode started in the past 7 days. The problem has been gradually worsening. Neither side of throat is experiencing more pain than the other. There has been no fever. The pain is at a severity of 5/10. The pain is moderate. Associated symptoms include diarrhea, ear pain and headaches. Pertinent negatives include no abdominal pain, congestion, coughing, drooling, ear discharge, hoarse voice, plugged ear sensation, neck pain, shortness of breath, stridor, swollen glands, trouble swallowing or vomiting. She has had exposure to strep. She has had no exposure tomono. She has tried nothing for the symptoms. PAST MEDICAL HISTORY Diagnosis Date Anxiety Depression Emphysema lung (HCC) 08/14/2016 Hypokalemia Hypomagnesemia Low HDL (under 40) PAST SURGICAL HISTORY Procedure Laterality Date COLONOSCOPY 08/19/2016 EGD 08/19/2016 ALLERGIES Prozac [Fluoxetine Hcl] and Wellbutrin [Bupropion Hcl] MEDICATIONS fluticasone (FLONASE) 50 mcg/actuation nasal spray Use 2 Sprays in each nostril once daily. Rinse mouth after use. potassium chloride ER (KLOR-CON M20) 20 mEq tablet Take 1 tablet by mouth once daily. amoxicillin (AMOXIL) 500 mg capsule Take 1 capsule by mouth twice daily for 10 days. escitalopram oxalate (LEXAPRO) 10 mg tablet Take 1 tablet by mouth once daily. (Patient not taking:Reported on 12/21/2022) FAMILY HISTORY Problem Relation Age of Onset Breast Cancer Mother Heart Maternal Grandmother Diabetes Maternal Grandmother Arthritis Maternal Uncle Breast Cancer Sister Breast Cancer Paternal Aunt Social History Tobacco Use Smoking status: Every Day Packs/day: 1.00 Years: 25.00 Pack years: 25.00 Types: Cigarettes Smokeless tobacco: Never Tobacco comments: 1/2 pack per day Substance Use Topics Alcohol use: No Drug use: No Review of Systems Constitutional: Positive for chills. Negative for activity change, appetite change, fatigue and fever. HENT: Positive for ear pain and sore throat. Negative for congestion, drooling, ear discharge, hoarse voice, sinus pressure, sinus pain and trouble swallowing. Eyes: Negative for photophobia, pain, discharge, redness, itching and visual disturbance. Respiratory: Negative for cough, shortness of breath and stridor. Cardiovascular: Negative for chest pain, palpitations and leg swelling. Gastrointestinal: Positive for diarrhea. Negative for abdominal pain, constipation and vomiting. Musculoskeletal: Negative for arthralgias, back pain and neck pain. Skin: Negative for color change, pallor, rash and wound. Allergic/Immunologic: Negative for environmental allergies, food allergies and immunocompromised state. Neurological: Positive for headaches. Hematological: Negative for adenopathy. Does not bruise/bleed easily. Psychiatric/Behavioral: Negative for agitation and behavioral problems. Objective BP 148/88 Pulse 95 Temp 36.6 C (97.9 F) Resp 21 Wt 58 kg (127 lb 12.8 oz) LMP 02/24/2018 SpO2 99% BMI 24.15 kg/m Physical Exam Vitals and nursing note reviewed. Constitutional: General: She is not in acute distress. Appearance: Normal appearance. She is normal weight. She is not ill-appearing, toxic-appearing or diaphoretic. HENT: Head: Normocephalic and atraumatic. Right Ear: Ear canal and external ear normal. Left Ear: Ear canal and external ear normal. Ears: Comments: Right TM erythematous and bulging. No mastoid TTP EAC normal bilaterally Nose: Nose normal. No congestion or rhinorrhea. Mouth/Throat: Mouth: Mucous membranes are moist. Pharynx: No oropharyngeal exudate or posterior oropharyngeal erythema. Eyes: General: Right eye: No discharge. Left eye: No discharge. Extraocular Movements: Extraocular movements intact. Conjunctiva/sclera: Conjunctivae normal. Pupils: Pupils are equal, round, and reactive to light. Cardiovascular: Rate and Rhythm: Normal rate and regular rhythm. Pulses: Normal pulses. Heart sounds: Normal heart sounds. No murmur heard. No friction rub. Pulmonary: Effort: Pulmonary effort is normal. No respiratory distress. Breath sounds: Normal breath sounds. No stridor. No wheezing, rhonchi or rales. Chest: Chest wall: No tenderness. Abdominal: General: Abdomen is flat. There is no distension. Palpations: Abdomen is soft. There is no mass. Tenderness: There is no abdominal tenderness. There is no right CVA tenderness, left CVA tenderness, guarding or rebound. Hernia: No hernia is present. Musculoskeletal: General: No swelling, tenderness, deformity or signs of injury. Normal range of motion. Cervical back: Normal range of motion and neck supple. No rigidity. Right lower leg: No edema. Left lower leg: No edema. Lymphadenopathy: Cervical: No cervical adenopathy. Skin: General: Skin is warm and dry. Capillary Refill: Capillary refill takes less than 2 seconds. Coloration: Skin is not jaundiced or pale. Findings: No bruising, erythema, lesion or rash. Neurological: General: No focal deficit present. Mental Status: She is alert and oriented to person, place, and time. Cranial Nerves: No cranial nerve deficit. Sensory: No sensory deficit. Motor: No weakness. Coordination: Coordination normal. Gait: Gait normal. Psychiatric: Mood and Affect: Mood normal. Behavior: Behavior normal. Thought Content: Thought content normal. Judgment: Judgment normal. Assessment and Plan ASSESSMENT/PLAN: 1. Pharyngitis, unspecified etiology - ICD9: 462, ICD10: J02.9 (primary diagnosis) - suspect strep - Alere Strep Test NEGATIVE, no culture pending - Discussed supportive care treatment with fluids, rest and analgesia. - The patient may also use OTC cough and cold meds as needed, warm salt water gargles, throat lozenges and/or OTC throat spray as needed, and nasal saline gtts and suction prn. - Contagious dz precautions discussed- including considered contagious until on antibiotics for 24 hours - The patient should follow up in 3-5 days if symptoms persist or worsen - Call back if drooling, increased temperature, symptoms of dehydration and/or still sick in one week - STREP A MOLECULAR (POC) 2. Acute otitis media, right - ICD9: 382.9, ICD10: H66.91 - Will begin treatment with as per antibiotic as written, see orders - The patient should also be given OTC cough and cold meds as needed, warm salt water gargles, throat lozenges and/or OTC throat spray as needed, and nasal saline gtts and suction prn for the first 5-7 days of treatment. - Supportive care with plenty of fluids, rest, and analgesia prn. - Follow up in 3-5 days if symptoms persist or worsen. Nely Schmidt APRN.SERVANDO documented in this encounterProtestant [facility]acon[facility]04-23-2023 History of Present illness Narrative* CARMELINA Metzger - 12/21/2022 12:48 PM EDT This note was created using NoteWriter. Subjective Jenna Valadez is a 52 year old female. HPI 52-year-old female presents for runny nose, congestion, sore throat for the past 3 days. Patient started getting a runny nose, sneezing and scratchy throat about 3 to 4 days ago. She states that she has a lot of sinus pressure. She has been taking DayQuil and NyQuil. She did a home COVID test that was negative. She has not had any fevers. No cough. No other complaints. No sick contacts PAST MEDICAL HISTORY Diagnosis Date Anxiety Depression Emphysema lung (HCC) 08/14/2016 Hypokalemia Hypomagnesemia Low HDL (under 40) PAST SURGICAL HISTORY Procedure Laterality Date COLONOSCOPY 08/19/2016 EGD 08/19/2016 ALLERGIES Prozac [Fluoxetine Hcl] and Wellbutrin [Bupropion Hcl] MEDICATIONS potassium chloride ER (KLOR-CON M20) 20 mEq tablet Take 1 tablet by mouth once daily. fluticasone (FLONASE) 50 mcg/actuation nasal spray Use 2 Sprays in each nostril once daily. Rinse mouth after use. escitalopram oxalate (LEXAPRO) 10 mg tablet Take 1 tablet by mouth once daily. (Patient not taking:Reported on 12/21/2022) FAMILY HISTORY Problem Relation Age of Onset Breast Cancer Mother Heart Maternal Grandmother Diabetes Maternal Grandmother Arthritis Maternal Uncle Breast Cancer Sister Breast Cancer Paternal Aunt Social History Tobacco Use Smoking status: Every Day Packs/day: 1.00 Years: 25.00 Pack years: 25.00 Types: Cigarettes Smokeless tobacco: Never Tobacco comments: 1/2 pack per day Substance Use Topics Alcohol use: No Drug use: No Review of Systems Constitutional: Negative for chills and fever. HENT: Positive for congestion, sinus pressure and sore throat. Negative for ear pain. Respiratory: Negative for cough and shortness of breath. Cardiovascular: Negative for chest pain. Gastrointestinal: Negative for diarrhea and vomiting. Objective BP 150/88 Pulse 110 Temp 37.1 C (98.7 F) Resp 21 Wt 58.4 kg (128 lb 12.8 oz) LMP 02/24/2018 SpO2 99% BMI 24.34 kg/m Physical Exam Vitals and nursing note reviewed. Constitutional: General: She is not in acute distress. Appearance: Normal appearance. She is not toxic-appearing. HENT: Right Ear: Tympanic membrane and ear canal normal. Left Ear: Tympanic membrane and ear canal normal. Nose: Congestion present. Mouth/Throat: Mouth: Mucous membranes are moist. Pharynx: No oropharyngeal exudate or posterior oropharyngeal erythema. Eyes: Conjunctiva/sclera: Conjunctivae normal. Cardiovascular: Rate and Rhythm: Normal rate and regular rhythm. Pulmonary: Effort: Pulmonary effort is normal. Breath sounds: Normal breath sounds. Neurological: Mental Status: She is alert. Assessment and Plan ASSESSMENT/PLAN: 1. URI, acute - ICD9: 465.9, ICD10: J06.9 - Discussed viral etiology and rationale for treatment. Discussed likely viral as symptoms have only been for 3 days. - Symptomatic treatment with prn analgesia - Supportive care with fluids and rest -Declines COVID/flu swab. -Rx for Flonase. Diagnosis and treatment plan were discussed and questions were answered to the patient's satisfaction. Pt acknowledged understanding of concepts and follow up plan. Specific signs and symptoms that would indicate the need for higher level of care were discussed in detail warranting prompt ER evaluation. CARMELINA Metzger documented in this encounterProtestant [facility]acon[facility]11-23-2022 Miscellaneous Notes* Telephone Encounter - Anmol Chen MD - 07/23/2022 8:52 AM EST The following approved medication requests have been transmitted electronically. Requested Prescriptions Signed Prescriptions Disp Refills potassium chloride ER (KLOR-CON M20) 20 mEq tablet 30 tablet 1 Sig: Take 1 tablet by mouth once daily. Authorizing Provider: ANMOL CHEN MD * Telephone Encounter - Ashly Gerber LPN - 07/23/2022 7:02 AM EST Last refill 12/13/20 Qty: 30 with 1 refill AIMEE 01/24/22 NOV 09/02/22 Ashly Gerber LPN documented in this encounterProtestant [facility]acon[facility]08-01-2022 Miscellaneous Notes* Telephone Encounter - Melissa Baugh RN - 03/31/2022 3:08 PM EDT Spoke with patient. Given message from provider's office. Patient verbalizes understanding. Melissa Baugh RN * Telephone Encounter - Alina Lee MA - 03/31/2022 1:54 PM EDT Left message for patient to contact office. Alina Lee MA * Telephone Encounter - Anmol Chen MD - 03/31/2022 1:36 PM EDT Advise Jenna caro can take OTC generic claritin 10 mg a day along with the sudafed she is already taking. * Telephone Encounter - Oliva Diego LPN - 03/31/2022 9:19 AM EDT Patient calling she was COVID positive Thursday and having problems with congestion. She has tried [employer] otc generic sinus medication did not help at all. Currently she is taking Sudafed every 12hours, helping some but not great. She is concerned since she goes back to work and has towear a N95 mask, with the congestion. Patient asking if anything else otc she can take? She has no insurance so has to be otc item. Please advise documented in this encounterProtestant [facility]acon[facility]07-30-2022 History of Present illness Narrative* Diogenes Lim MD - 03/29/2022 9:23 AM EDT Patient presents with: Covid19 Concern: congestion, body aches, fatigue x1 day HPI: Feeling sick since yesterday. Rapid COVID test positive at work yesterday. Positive symptoms: Nasal Congestion, Rhinorrhea, Body Aches, Fatigue, Chest tightness, Sore throat,upset stomach Negative symptoms: Cough, Nausea, Vomiting, Diarrhea, Fever, OTC: Sudafed. Has no inhaler. 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 Had 4th dose of Pfizer COVID-19 vaccine 03/13/22. PAST MEDICAL HISTORY Diagnosis Date Anxiety Depression Emphysema lung (HCC) 08/14/2016 Hypokalemia Hypomagnesemia Low HDL (under 40) MEDICATIONS: Current Outpatient Medications Medication Sig escitalopram oxalate (LEXAPRO) 10 mg tablet Take 1 tablet by mouth once daily. potassium chloride ER (KLOR-CON M20) 20 mEq tablet Take 1 tablet by mouth once daily. No current facility-administered medications for this visit. ALLERGIES: ALLERGIES Allergen Reactions Prozac [Fluoxetine * Other: See Comments headaches Wellbutrin [Bupropi* Other: See Comments Increased anxiety and stomach ache VITALS: BP 120/72 Pulse 106 Temp 36.8 C (98.2 F) Resp 20 Wt 54.8 kg (120 lb 12.8 oz) LMP 02/24/2018 SpO2 98% BMI 22.82 kg/m PHYSICAL EXAM: GEN: mildly ill appearing HEENT: PERRL, EOMI, conjunctiva clear Ears: canals clear. TMs without erythema, bulge, or effusion Sinuses: non-tender frontal sinus, non-tender maxillary sinuses Throat: moist mucous membranes, mild erythema, no exudate Neck: supple, no thyromegaly, no lymphadenopathy HEART: regular rate and rhythm, no murmurs LUNGS: clear to auscultation, no wheezes or crackles, no increased WOB ASSESSMENT/PLAN: 1. COVID-19 - ICD9: 079.89, ICD10: U07.1 - Discussed supportive care treatment with home isolation, rest, cold medicine, decongestant, and analgesia. - Red flags to seek further treatment include chest pain, shortness of breath, and lethargy; in theER if severe. Diogenes Lim MD documented in this encounterProtestant [facility]acon[facility]06-08-2022 Instructions* Patient Instructions* Sun Mariee APRN.CURING PRESS OPERATOR - 02/05/2022 8:11 AM EDT covid test ordered You will be notified in 24 -48 hours, results available on [facility] Home isolation until covid results are back Rest, increase water intake Motrin or Tylenol as needed for fever or pain. Salt water gargles, chloraseptic spray or lozenges as needed for sore throat. Warm beverages, honey. Nasal saline spray as needed Cool mist humidifier at night Tylenol (generic acetaminophen) 500 mg-2 tabs every 8 hrs. as needed for fever and aches Ibuprofen 600 mg (3-200mg tablets) every 6 hours -Sudafed (generic is fine), behind the counter, 2x30 mg tabs twice daily as needed for congestion -Mucinex (generic is fine) Guaifenesin 1200 mg twice daily to help with cough and to thin out mucus Flonase or Nasonex 2 sprays in each nostril once a day * Seek medical care immediately, call 911, go to ER if you have chest pain, difficulty breathing, shortness of breath, inability to swallow. documented in this encounterProtestant [facility]acon[facility]06-08-2022 History of Present illness Narrative* Sun Mariee APRN.CNP - 02/05/2022 7:59 AM EDT Subjective The history is provided by the patient. No speech language specialist was used. HPI Jenna Valadez is a 51 year old female who presents today for CC of stuffy nose and congestionfor 3 days. She has used tylenol sinus with no relief. She denies any fever, body aches, nausea vomiting and diarrhea. She has had 2 negative rapid tests at work, declines PCR testing. She was exposed at work and family to covid. She is an everyday smoker BP 118/72 Pulse 91 Temp 36.7 C (98 F) Resp 20 Wt 54.1 kg (119 lb 3.2 oz) LMP 02/24/2018 SpO2 99% BMI 22.52 kg/m Social History Tobacco Use Smoking status: Current Every Day Smoker Packs/day: 1.00 Years: 25.00 Pack years: 25.00 Smokeless tobacco: Never Used Tobacco comment: 1/2 pack per day Substance Use Topics Alcohol use: No Drug use: No PAST MEDICAL HISTORY Diagnosis Date Anxiety Depression Emphysema lung (HCC) 08/14/2016 Hypokalemia Hypomagnesemia Low HDL (under 40) I have confirmed and edited as necessary, the [facility] Review of Systems Constitutional: Negative for chills and fever. HENT: Positive for congestion and sinus pain. Negative for ear pain and sore throat. Respiratory: Negative for cough, sputum production, shortness of breath and wheezing. Cardiovascular: Negative for chest pain. Musculoskeletal: Negative for myalgias. Neurological: Positive for headaches. Objective Physical Exam Vitals and nursing note reviewed. HENT: Head: Normocephalic and atraumatic. Right Ear: Tympanic membrane, ear canal and external ear normal. Left Ear: Tympanic membrane, ear canal and external ear normal. Nose: Mucosal edema, congestion and rhinorrhea present. Right Sinus: Maxillary sinus tenderness and frontal sinus tenderness present. Left Sinus: Maxillary sinus tenderness and frontal sinus tenderness present. Mouth/Throat: Pharynx: Uvula midline. Cardiovascular: Rate and Rhythm: Regular rhythm. Heart sounds: Normal heart sounds. Pulmonary: Effort: Pulmonary effort is normal. Breath sounds: Normal breath sounds. Lymphadenopathy: Head: Right side of head: No submental, submandibular or tonsillar adenopathy. Left side of head: No submental, submandibular or tonsillar adenopathy. Cervical: No cervical adenopathy. Skin: General: Skin is warm and dry. Neurological: Mental Status: She is alert. Psychiatric: Mood and Affect: Affect normal. ASSESSMENT/PLAN: 1. Upper respiratory infection with cough and congestion - ICD9: 465.9, ICD10: J06.9 - Discussed viral etiology and rationale for treatment. - Symptomatic treatment with prn analgesia - Supportive care with fluids and rest - fluticasone, sudafed Comfort measures discussed - see patient instructions. Diagnosis and treatment plan were discussed and questions were answered to the patient's satisfaction. Pt acknowledged understanding of concepts and follow up plan. Specific signs and symptoms that would indicate the need for higher level of care were discussed indetail warranting prompt ER evaluation. uSn Mariee APRN.SERVANDO documented in this encounterProtestant [facility]acon[facility]05-27-2022 History of Present illness Narrative* Qian Somers PA-C - 01/24/2022 10:03 AM EDT Chief Complaint Patient presents with: Recheck HPI Jenna Valadez is a 51 year old female who presents here today for recheck anxiety.. Patient was seen in October and we started her on lexapro. She is only taking 1/2 tablet. She has noted some improvement. And others have noted this as well. Has had some L pinky finger pain for the past week. Has been using ibuprofen. Last 5 Encounter Wt Readings: Date: Wt: 01/24/2022 54.4 kg (120 lb) 11/15/2021 53.5 kg (118 lb) 11/11/2021 53.1 kg (117 lb) 12/14/2020 52.6 kg (116 lb) 12/13/2020 51.7 kg (114 lb) Past medical history, appointments, medications, allergies reviewed. Previous Medical History PAST MEDICAL HISTORY Diagnosis Date Anxiety Depression Emphysema lung (HCC) 08/14/2016 Hypokalemia Hypomagnesemia Low HDL (under 40) Previous Surgical History PAST SURGICAL HISTORY Procedure Laterality Date COLONOSCOPY 08/19/2016 EGD 08/19/2016 Family History FAMILY HISTORY Problem Relation Age of Onset Breast Cancer Mother Heart Maternal Grandmother Diabetes Maternal Grandmother Arthritis Maternal Uncle Breast Cancer Sister Breast Cancer Paternal Aunt Patient Allergies ALLERGIES Allergen Reactions Prozac [Fluoxetine * Other: See Comments headaches Wellbutrin [Bupropi* Other: See Comments Increased anxiety and stomach ache Current Medications Current Outpatient Medications on File Prior to Visit Medication Sig escitalopram oxalate (LEXAPRO) 10 mg tablet Take 1 tablet by mouth once daily. potassium chloride ER (KLOR-CON M20) 20 mEq tablet Take 1 tablet by mouth once daily. pravastatin (PRAVACHOL) 20 mg tablet Take 1 tablet by mouth daily at bedtime. (Patient not taking: Reported on 11/11/2021 ) albuterol HFA (PROVENTIL HFA, VENTOLIN HFA) 90 mcg/actuation inhaler Inhale 2 Puffs as instructed every 4 hours as needed. (Patient not taking: Reported on 11/11/2021 ) No current facility-administered medications on file prior to visit. Social History Social History Tobacco Use Smoking status: Current Every Day Smoker Packs/day: 1.00 Years: 25.00 Pack years: 25.00 Smokeless tobacco: Never Used Tobacco comment: 1/2 pack per day Substance Use Topics Alcohol use: No Drug use: No Review of Symptoms REVIEW OF SYSTEMS GENERAL: No weight loss, malaise or fevers RESPIRATORY: Negative for cough, hemoptysis, wheezing, COPD, dyspnea or shortness of breath CARDIOVASCULAR: Negative for chest pain, leg swelling, hypertension, CHF or palpitations EXAM: BP 102/70 (BP Site: Left Arm, BP Position: Sitting, BP Cuff Size: Regular Adult) Pulse 84 Temp 36.3 C (97.3 F) Resp 16 Wt 54.4 kg (120 lb) LMP 02/24/2018 BMI 22.67 kg/m General Appearance: Well appearing, alert, in no acute distress, well-hydrated, well nourished.. Neck: Supple, no adenopathy; thyroid symmetric, normal size, no bruits. Lungs: Lungs clear to auscultation. No wheezing, rhonchi, rales.. Heart: RRR without murmur, gallop, or rubs. No ectopy. Peripheral Pulses: Normal. Health Maintenance List SPIROMETRY Never done HEPATITIS C SCREENING Never done HIV SCREENING Never done MAMMOGRAM due on 08/04/2017 LUNG CANCER SCREENING due on 2018 SHINGRIX VACCINE(1 of 2) Never done PNEUMOCOCCAL(3 - PPSV23 or PCV20) due on 11/14/2020 PAP TESTING due on 09/08/2021 HPV TESTING due on 09/08/2021 COVID-19 VACCINE(4 - Booster for Pfizer series) due on 10/11/2021 INFLUENZA(Season Ended) due on 05/01/2022 ANNUAL PCP TEAM CHRONIC DISEASE VISIT due on 11/15/2022 DIABETES SCREEN due on 12/14/2023 LIPID SCREEN due on 12/13/2025 DTAP,TDAP,TD(2 - Td or Tdap) due on 04/15/2026 COLORECTAL CANCER SCREENING due on 08/19/2026 Data reviewed ASSESSMENT/PLAN: 1. Depression, unspecified depression type - ICD9: 311, ICD10: F32.A (primary diagnosis) improved Advised patient she can try going up to whole tablet. 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 Hyperlipidemia, mixed - ICD9: 272.2, ICD10: E78.2 - to be determined upon return of lab results - Encouraged following a low carbohydrate, healthy oil intake diet. - Continue current therapy. - LIPID PANEL, NONFASTING 4. Vitamin D deficiency - ICD9: 268.9, ICD10: E55.9 - VITAMIN D 25 HYDROXY 5. Pulmonary emphysema, unspecified emphysema type (HCC) - ICD9: 492.8, ICD10: J43.9 - COMP METABOLIC PANEL 6. Smoker - ICD9: 305.1, ICD10: F17.200 - Cessation encouraged. - Physiologic and physical aspects of tobacco addiction as well as strategies for quitting were discussed. - Counseling was given focusing on the harmful effects of this addiction especially given the patient's medical condition(s) which will be worsened because of the chemicals in tobacco. 7. SOB (shortness of breath) - ICD9: 786.05, ICD10: R06.02 8. Screening for diabetes mellitus - ICD9: V77.1, ICD10: Z13.1 - HGB A1C 9. Fatigue, unspecified type - ICD9: 780.79, ICD10: R53.83 Check: - TSH BLD - CBC + DIFF 10. Pain of finger of left hand - ICD9: 729.5, ICD10: M79.645 Offered xray. Patient declines Patient will monitor and return if not improving. Qian Somers PA-C documented [facility] encounter[facility] ClinicDis[facility] Author Shaheed Cortes [facility] Note Date/Time January 04, 2025 7:11am [facility] Medical Records Department [address] [place] [address] Emergency Department Summary 01/04/25 MR#: [id number] Acct: [id number] Name: JENNA VALADEZ Sarika Rep #:[id number] : 1970 54 From: Shaheed Cortes DO PCP: Elena Isbell NP-C Status:REG ER Location: ED HPI History of Present Illness Chief Complaint: Diarrhea Informant: patient Narrative Narrative: Patient is a 54-year-old female who reports a past medical history of appendicitis leading to sepsis and requiring prolonged IV antibiotics in October of this year. She states following that she developed diffuse diarrheaand was diagnosed with C. difficile. She states she took her antibiotic and finished it roughly 2 to 3 weeks ago. She states her stool has been loose but has been overall improving. She denies any fevers or chills or known sick contact. She states that there is been no recent travel outside the country andshe denies any livestock exposure. She reports that she went to bed normally and then awoke around 2 in the morning with abdominal cramping and had 3 bouts of watery diarrhea. She states she is concerned for a repeat C. difficile infection and therefore comes in for evaluation [facility] Home Medications ?Medication ?Instructions ?Recorded ?Last Taken ?Type inhalational spacing device ##1 12/20/19 Unknown Rx duloxetine 20 mg capsule,delayed 20 mg PO DAILY Unknown History release (Cymbalta) vancomycin 125 mg capsule 125 mg PO Q6H 10 days #40 ca ps 01/04/25 Unknown Rx Allergy/AdvReac Type Severity Reaction Status Date / Time No Known Allergies Allergy Verified 01/04/25 04:34 Surgical History (Updated 01/04/25 @ 04:38 by Marci Waldrop) Hx of appendectomy Social History (Updated 06/15/20 @ 13:36 by Eduardo COSME, PA) Smoking Status: Current every day smoker tobacco type: cigarettes ROS ROS ED Constitutional Constitutional ED: Denies chills or fever(s) ENT ENT ED: Denies sore throat Cardiovascular Cardiovascular: Denies chest pain Respiratory/Chest Respiratory/Chest: Denies cough or dyspnea Gastrointestinal Gastrointestinal: Reports abdominal pain and diarrhea; Denies nausea or vomiting Genitourinary Genitourinary ED: Reports dysuria Musculoskeletal Musculoskeletal: Denies back pain or myalgias Integumentary Denies rash Neurologic Neurologic: Denies headache(s) Hematologic/Lymphatic Hematologic/Lymphatic: Denies easy bleeding or easy bruising EXAM Physical Exam Const Vital Signs: 01/04/25 04:35 01/04/25 04:36 01/04/25 05:30 Temperature 97.9 F 97.7 F L 98.5 F Temperature Source Oral Oral Oral Pulse Rate 96 91 79 Respiratory Rate 18 18 18 Blood Pressure 141/75 H 141/75 H 115/68 Blood Pressure Mean 97 97 83 Pulse Ox 100 100 98 Oxygen Delivery Method Room Air Room Air Room Air Positive well nourished and well developed General Appearance ED: well developed; Negative for pallor HEENT Reports moist mucous membranes HEENT Narrative: No tongue or lip swelling no oral lesions no airway edema or compromise No secondary findings in the posterior pharynx to suggest infection Eyes PERRL and EOMs intact bilaterally General Eye ED: Negative for scleral icterus Neck supple Resp normal respiratory effort and clear to auscultation bilaterally Cardio regular rate and regular rhythm GI non-distended and no masses GI Narrative: Abdomen is soft and nondistended. There is mild diffuse pain with palpation along the lower abdomen. Bowel sounds are hyperactive. There is no voluntary guarding or rigidity or pulsatile mass. No peritoneal signs Auscultation: hyperactive bowel sounds Palpation: soft Back/Spine no CVA tenderness Extremity normal to inspection Neuro oriented x3, CN's II-XII intact bilaterally and no sensory deficits noted Sensorium / Orientation: alert Motor Exam: strength 5/5 throughout Psych mental status grossly normal Skin no rashes or lesions noted and skin turgor normal General Skin Exam: Negative for jaundice or pallor MDM MDM MDM Narrative Medical decision making narrative: Patient arrived to the ER with stable vitals and a soft nonsurgical abdomen. She reported sudden onset of watery diarrhea beginning around 2 in the morning. She does not have any recent risk factors such as travel outside the country recent hospitalization or livestock exposure to suggest infectious diarrhea suchas Salmonella E. coli or Shigella. With her recent history of C. difficile there is concern for repeat infection however and as she reports mild dysuria there is potential for UTI. Patient's white count is normal her neutrophil count is normal going against systemic infection. There are no signs of acute kidney injury or clinically significant electrolyte abnormality. Urine sample shows +1 bacteria but no white cells and is nitrite negative and therefore this does not correlate with an infectious process. A stool sample was obtained in the ER and at this time we will wait for the results of the C. difficile testingto decide if there is need for repeat antibiotics or if she is otherwise safe for discharge with just outpatient follow-up. The C. difficile study was positive and secondary to this she will be placed on another round of oral antibiotics. However as she does not have signs of sepsis or severe dehydrationor electrolyte abnormality or acute kidney injury she does not warrant admissionand is otherwise safe for discharge. History & Record Review Discussion w/independent historian: Patient Lab Data Attestation: I reviewed the patient's lab results. Labs: Laboratory Results - last 24 hr 01/04/25 01/04/25 04:58 05:11 WBC 7.4 RBC 4.42 Hgb 12.7 Hct 36.8 L MCV 83.3 MCH 28.7 MCHC 34.5 RDW Std Deviation 41.0 RDW Coeff of Ben 13.3 Plt Count 331 MPV 9.0 Immature Gran % (Auto) 0.100 Neut % (Auto) 68.3 Lymph % (Auto) 20.6 [place] % (Auto) 7.8 Eos % (Auto) 2.0 Baso % (Auto) 1.2 H Absolute Neuts (auto) 5.1 Absolute Lymphs (auto) 1.53 Nucleated RBC % 0 Sodium 140 Potassium 3.3 Chloride 105 Carbon Dioxide 23.6 Anion Gap 11 BUN 9 Creatinine 0.75 Estim Creat Clear Calc 70.81 Est GFR (MDRD) Non-Af 93 BUN/Creatinine Ratio 11.8 Glucose 108 H Calcium 9.2 Magnesium 1.8 Urine Color Straw Urine Clarity Clear Urine pH 6.0 Ur Specific [place] 1.010 Urine Protein 15 H Urine Glucose (UA) Normal Urine Ketones Negative Urine Occult Blood Negative Urine Nitrite Negative Urine Bilirubin Negative Urine Urobilinogen Normal Ur Leukocyte Esterase Negative Urine RBC 0 SEEN Urine WBC 0-5 SEEN Ur Squamous Epith Cells 0-5 SEEN Urine Bacteria 1+ Urine Mucus 0 SEEN Discharge Plan Triage Chief Complaint: Diarrhea ED Provider: Shaheed Cortes Dx/Rx/DC Orders Clinical Impression: Clostridium difficile diarrhea Instructions: C Diff Infect Prescriptions: New vancomycin 125 mg capsule 125 mg PO Q6H 10 Days Qty: 40 0RF No Action (DME) inhalational spacing device 1 EACH spacer 1 ea MC Q4H Qty: 1 0RF Rx Instructions: Use with albuterol MDI duloxetine [Cymbalta] 20 mg capsule,delayed release(DR/EC) 20 mg PO DAILY Stand Alone Forms: ED Work / School Excuse Primary Care Provider: Elena Isbell Referrals: Elena Isbell, CAGE MANAGER-C [Primary Care Provider] - Print Language: [place] Disposition Disposition: Home, Self Care What to do if you have Problems For any increased pain, shortness of breath, bleeding, nausea or vomiting, chestpain, or any unexpected problems, contact your Primary Care Provider. Call [facility] ([phone]) or report to the closest Emergency Room. Call 911 if necessary. 01/04/25 0783 <Electronically signed by Shaheed Cortes DO> Cosigner Signature (if applicable): CC: CAGE MANAGER-C Elena Isbell ~ Signed [facility] Work Phone: Discharge summary Author Bruce Ramos [facility] Note Date/Time March 21, 2025 4:06 am [facility] Medical Records Department [address] [place] [address] Emergency Department Summary 03/21/25 MR#: [id number] Acct: [id number] Name: JENNA VALADEZ Rep #:[id number] : 1970 54 From: Bruce Ramos DO PCP: DIVINA Zavaleta Status:PRE ER Location: ED HPI History of Present Illness Chief Complaint: Dental Narrative Narrative: Patient is a 54-year-old female with past medical history anxiety who presents to the emergency department the chief complaint of dental pain. States that on this past week she had 11 teeth pulled and notes that she has had pain and swelling along her lower jawline since then. She states that it has been persistent and she was concerned that she may have infection therefore she came here for further evaluation management. Patient states that she did not call her dentist that pulled her teeth. Patient denies any fevers denies difficulty swallowing PFSH PFSH Medical History Anxiety Home Medications ?Medication ?Instructions ?Recorded ?Last Taken ?Type duloxetine 20 mg capsule,delayed 20 mg PO DAILY 01/15/25 History release (Cymbalta) clindamycin HCl 300 mg capsule 300 mg PO TID 5 days #1 5 caps 03/21/25 Unknown Rx (Cleocin HCl) Allergy/AdvReac Type Severity Reaction Status Date / Time No Known Allergies Allergy Verified 03/21/25 03:52 Surgical History History of dental surgery Hx of appendectomy Social History Smoking Status: Current every day smoker tobacco type: cigarettes ROS ROS ED ROS Narrative Constitutional: Denies any fevers or chills Eyes, ears, nose, throat: Complains of dental pain as noted above denies any difficulty swallowing Neurological: Denies numbness, wheeze, tingling Skin: Denies rashes or lesions EXAM Physical Exam Narrative Exam Narrative: General: Patient lying in bed rest comfortably did not appear to be acute distress Head: Atraumatic, normocephalic Eyes, ears, nose, throat: PERRL bilaterally, EOMI by, no conjunctival injection noted, no sublingual swelling noted, patient does have some swelling noted whereher teeth were removed however no drainable abscesses noted Neck: No concern for Chicho's angina, soft, supple, trachea midline Cardiovascular: Regular rate and rhythm Neurological: Patient follow commands and that she was at [facility] [id number] Skin: Warm, dry, tact no rashes or lesions noted Const Vital Signs: 03/21/25 03:48 Temperature 97.8 F Temperature Source Temporal Pulse Rate 92 Respiratory Rate 16 Blood Pressure 151/84 H Blood Pressure Mean 106 Pulse Ox 100 MDM MDM MDM Narrative Medical decision making narrative: Patient is a 54-year-old female who presented to the emerged part with a chief complaint of dental pain after having 11 teeth removed last . On the differential diagnosis includes but not limited to abscess however have low suspicion for this clinically as noted above, dry socket, dental caries. Patient will be placed on clindamycin and she is advised that she needs to call her doctor for follow-up today. She was encouraged to return with worsening symptoms any concerns. She like to go home concerns answered she was discharged home in stable condition. Discharge Plan Triage Chief Complaint: Dental ED Provider: Bruce Ramos Dx/Rx/DC Orders Clinical Impression: Pain, dental, Tobacco use Prescriptions: New clindamycin HCl [Cleocin HCl] 300 mg capsule 300 mg PO TID 5 Days Qty: 15 0RF No Action duloxetine [Cymbalta] 20 mg capsule,delayed release(DR/EC) 20 mg PO DAILY Primary Care Provider: Elena Isbell Referrals: Elena Isbell NP-C [Primary Care Provider] - Activity Restrictions/Additional Instructions: Take antibiotics as prescribed. Follow-up with the dentist that removed your teeth. Return with worsening symptoms or any other concerns. Print Language: [place] Disposition Disposition: Home, Self Care What to do if you have Problems For any increased pain, shortness of breath, bleeding, nausea or vomiting, chestpain, or any unexpected problems, contact your Primary Care Provider. Call [facility] ([phone]) or report to the closest Emergency Room. Call 911 if necessary. 03/21/25 0406 <Electronically signed by Bruce Ramos DO> Cosigner Signature (if applicable): CC: DIVINA Isbell ~ Signed [facility] Work Phone: Evaluation note* Diagnosis Depression, unspecified depression type- Primary Anxiety neurosis Anxiety state, unspecified Hyperlipidemia, mixed Mixed hyperlipidemia Vitamin D deficiency Unspecified vitamin D deficiency Pulmonary emphysema, unspecified emphysema type (HCC) Smoker Tobacco use disorder SOB (shortness of breath) Shortness of breath Screening for diabetes mellitus Fatigue, unspecified type Pain of finger of left hand Pain in limb [facility] Diagnosis Upper respiratory infection with cough and congestion- Primary Acute upper respiratory infections of unspecified site [facility]* Diagnosis Encounter for screening mammogram for breast cancer [facility]* Diagnosis COVID-19- Primary [facility]* Diagnosis Hypokalemia Hypopotassemia [facility]* Diagnosis URI, acute- Primary Acute upper respiratory infections of unspecified site [facility]* Diagnosis Pharyngitis, unspecified etiology- Primary Acute otitis media, right Unspecified otitis media [facility]* Diagnosis URI, acute- Primary Acute upper respiratory infections of unspecified site [facility]* Diagnosis Hypokalemia Hypopotassemia [facility]* Diagnosis Sinobronchitis- Primary Unspecified sinusitis (chronic) [facility]* Diagnosis Near syncope- Primary Syncope and collapse [facility]* Diagnosis Fatigue, unspecified type- Primary Hypokalemia Hypopotassemia Encounter for lipid screening for cardiovascular disease Screening for lipoid disorders Screening for diabetes mellitus Anxiety neurosis Anxiety state, unspecified Mood disorder (HCC) Unspecified episodic mood disorder Vitamin D deficiency Unspecified vitamin D deficiency [facility] Vitamin D deficiency- Primary Unspecified vitamin D deficiency [facility] Diagnosis Encounter for screening mammogram for breast cancer [facility] Diagnosis Well adult exam- Primary Routine general medical examination at a [facility] care facility Chronic pain of both knees Hyperlipidemia, mixed Mixed hyperlipidemia Smoker Tobacco use disorder PTSD (post-traumatic stress disorder) Posttraumatic stress disorder KELSI (generalized anxiety disorder) Generalized anxiety disorder Vitamin D deficiency Unspecified vitamin D deficiency [facility] Diagnosis Diarrhea, unspecified type- Primary [facility] Diagnosis Vitamin D deficiency- Primary Unspecified vitamin D deficiency [facility] Diagnosis Bronchitis- Primary Bronchitis, not specified as acute or chronic [facility] Diagnosis Generalized abdominal pain- Primary Abdominal pain, generalized Fever, unspecified fever cause Tachycardia Tachycardia, unspecified [facility]* Diagnosis Postoperative intra-abdominal abscess (HCC)- Primary Other postoperative infection Hypokalemia Hypopotassemia Hospital discharge follow-up Other follow-up examination [facility]* Diagnosis Hypokalemia- Primary Hypopotassemia [facility]* Diagnosis Intra-abdominal abscess (HCC)- Primary Peritoneal abscess [facility] Diagnosis Postoperative intra-abdominal abscess (HCC)- Primary Other postoperative infection [facility] Diagnosis Postoperative intra-abdominal abscess (HCC)- Primary Other postoperative infection [facility] Diagnosis Infection in abdomen (HCC)- Primary Unspecified peritonitis Perforated appendicitis Acute appendicitis with generalized peritonitis [facility] Diagnosis Infection in abdomen (HCC) Unspecified peritonitis [facility] Diagnosis Infection in abdomen (HCC)- Primary Unspecified peritonitis Antibiotic long-term use Encounter for long-term (current) use of antibiotics Postoperative intra-abdominal abscess (HCC) Other postoperative infection [facility] Diagnosis Vitamin D deficiency- Primary Unspecified vitamin D deficiency [facility] Diagnosis Encounter for screening mammogram for breast cancer [facility] Diagnosis Numbness and tingling- Primary Disturbance of skin sensation [facility] Diagnosis Postoperative intra-abdominal abscess (HCC)- Primary Other postoperative infection C. difficile diarrhea Intestinal infection due to clostridium difficile [facility] Diagnosis Pain, dental- Primary Unspecified disorder of the teeth and supporting structures Dental decay Unspecified dental caries [facility] Discharge instructionsAdditional Instructions Take antibiotics as prescribed. Follow-up with the dentist that removed your teeth. Return with worsening symptoms or any other concerns.[facility] Work Phone: Miscellaneous Notes* Telephone Encounter - Charleen - 11/03/2024 2:03 PM EST Record ID: [id number] Patient name: Jenna Valadez Date: November 03, 2024 - 09:03 Administered by: CHARLEEN Protocol: -> Great! Now we are in a secure chat environment. Protecting your health information is important to us. Ok, let's get started. Please verify your name and date of . Please click on the button with your first name. -> Jenna Got it. On to the next question... Select the button with your last name. -> Rory Got it, thank you. Please enter your date of in MM/DD/YYYY format:(e.g., 09/18/1971 for Sep 18, 1971) -> 1970 Thank you for verifying your information. I'd like to ask you a few questions about how your recovery is going. Since leaving the hospital, do you have any new or worsening symptoms? -> No [facility]* Visit Details Visit Type -SN SOC IV Discipline -Half-Way Problems Problem Description Start Date Status Goals Interve ntions Medication Education Disciplines: Skilled Services 11/03/2024 Active 1 goal linked to scheduled/documente d intervention 1 goal intervention scheduled/documente d in this visit Mental Health Disciplines: Skilled Services 11/03/2024 Active 1 goal linked to scheduled/documente d intervention 1 goal intervention scheduled/documente d in this visit Sepsis Disciplines: Skilled Services 11/03/2024 Active 1 goal linked to scheduled/documente d intervention 1 goal intervention scheduled/documente d in this visit Physician Specific Parameters Disciplines: Skilled Services 11/03/2024 Active 1 goal linked to scheduled/documente d intervention 1 goal intervention scheduled/documente d in this visit Risk for Falls Disciplines: Skilled Services 11/03/2024 Active 1 goal linked to scheduled/documente d intervention 1 goal intervention scheduled/documente d in this visit Pain Disciplines: Skilled Services 11/03/2024 Active 1 goal linked to scheduled/documente d intervention 1 goal intervention scheduled/documente d in this visit High Risk Medications Disciplines: Skilled Services 11/03/2024 Active 1 goal linked to scheduled/documente d intervention 2 goal interventions scheduled/documente d in this visit Discharge Disciplines: Skilled Services 11/03/2024 Active 1 goal linked to scheduled/documente d intervention 2 goal interventions scheduled/documente d in this visit SN IV THERAPY Disciplines: SN 11/03/2024 Active 1 goal linked to scheduled/documente d intervention 1 goal intervention scheduled/documente d in this visit SN Integumentary/W ounds Disciplines: SN 11/03/2024 Active 1 goal linked to scheduled/documente d intervention 2 goal interventions scheduled/documente d in this visit SN Learning Assessment Disciplines: 11/03/2024 Active 1 goal linked to scheduled/documente d intervention 1 goal intervention scheduled/documente d in this visit Goals Goal Associated Problem Outcome Goal Met? Visit Notes Patient/caregiver will demonstrate ability to obtain, store, identify and administer ordered medications, keep accurate medication list in home, and adhere to medication schedule Description: Patient/caregiver will demonstrate ability to obtain, store, identify and administer ordered medications, keep accurate medication list in home, and adhere to medication schedule by 11/12/24. Medication Education No Improved management of mental health condition(s) Description: Patient/caregiver will teach back mental health symptom identification and management techniques by 11/12/24. Mental Health No Patient/caregiver will be able to identify and report symptoms of sepsis Description: Patient/caregiver will be able to identify signs/symptoms of sepsis infection and will verbalize actions to take if suspected by 11/12/24. Sepsis No Patient to maintain parameters within physician-specified ranges throughout certification period Physician Specific Parameters No Manage Risk for falls Description: Patient/caregiver will verbalize knowledge of individualized fall prevention strategies by 11/12/24. Risk for Falls No Manage Pain Description: Patient/caregiver will verbalize knowledge and understanding of appropriate techniques to control pain, including pain medication. Patient will verbalize or demonstrate an acceptable level of pain as eviden little by a pain score of 0/10 and improvement in ability to perform activities of daily living to be achieved by 11/12/24. Pain No Patient/caregiver will teach back high risk medication side effect and precaution education Description: STG Patient/caregiver will verbalize understanding of high risk medication side effects and precautions to be achieved by 11/12/24. LTG Patient/caregiver will continue to verbalize understanding of high risk medication side effects and precautions throughout certification period. High Risk Medications No Manage discharge planning Description: Patient/caregiver will verbalize understanding of ongoing discharge plan provided related to disease management, arrangements for outpatient and/or community services, obtaining medications, supplies, and DME, as needed throu out certification period. Discharge No Patient/Caregiver will remain free of IV therapy complications Description: Patient/caregiver will verbalize understanding of infusion therapy & demonstrate appropriate access device management as evidenced by patient remaining free of IV complications by CoPat end date of 11/12/24. SN IV THERAPY No Patient/Caregiver will have improved healing and be free of signs and symptoms of complications Description: Patient/caregiver will verbalize management strategies to promote wound healing & prevent complications as evidenced by improved healing & no complications by 11/12/24. SN Integumentary/Wounds No Demonstrate understanding of education Description: Patient and/or caregiver will verbalize understanding of educational instruction provided throughout certification period. SN Learning Assessment No Interventions Intervention Associated Problem/Goal Status Variance Visit Notes Medication Education Description: Evaluate/instruct patient/caregiver on obtaining, storing, identifying and administering ordered medications as well as keeping accurate medication list in the home and adhereing to medication schedule Problem:Medication Education Goal:Patient/caregive r will demonstrate ability to obtain, store, identify and administer ordered medications, keep accurate medication list in home, and adhere to medication schedule Completed Patient and Caregiver instructed on importance of keeping accurate medication list in home, adhering to medication schedule and Medication, route, dose, frequency, purpose, and side effects of all medications. Instruct on coping strategies Problem:Mental Health Goal:Improved management of mental health condition(s) Completed Risk of Sepsis Description: Patient is at risk for sepsis. Monitor closely for s/s of sepsis. Problem:Sepsis Goal:Patient/caregive r will be able to identify and report symptoms of sepsis Completed SPO2 Description: Notify Dr. Chen if pulse ox is <92% at rest. Problem:Physician Specific Parameters Goal:Patient to maintain parameters within physician-specified ranges throughout certification period Completed Instruct on individual fall risk factors and strategies to prevent falls and injuries caused by falls. Problem:Risk for Falls Goal:Manage Risk for falls Completed SN: Patient and Caregiver instructed on Eliminating Environmental Hazards: Keep pathways clear, Keep pets out of pathways, Remove unsafe rugs, Move furniture from pathways and Keep rooms and walkways well lit Managing Cognitive Impairment/Depression: Recommended use of visual cues/reminders for safety Instruct on pain and instruct on strategies to control pain Problem:Pain Goal:Manage Pain Completed patient instructed on techniques to control pain including Pharmacological measures. Opioids- educated on high risk medication Problem:High Risk Medications Goal:Patient/caregive r will teach back high risk medication side effect and precaution education Completed patient educated on taking medication(s) as prescribed by provider. Do not stop medication or alter doses without speaking with your provider. Discuss medication effectiveness or side effect concerns with your provider and home care team. Only take opioids as prescribed, do not share your medications, and take proper precautions in storing and properly disposing of opioids once no longer needed. Possible side effects of opioid medication including sedation, decreased rate of breathing, and constipation. Report over sedation to prescribing provider and practice deep breathing techniques every hour while awake. Prevent constipation by increasing water and fiber intake, increasing activity as tolerated, and use stool softener(s) as prescribed. Antibiotic- educated on high risk medication Problem:High Risk Medications Goal:Patient/caregive r will teach back high risk medication side effect and precaution education Completed patient educated on taking medication(s) as prescribed by provider. Do not stop medication or alter doses without speaking with your provider. Discuss medication effectiveness or side effect concerns with your provider and home care team. Take the full dispensed amount even if you start feeling better, as bacteria can become resistant to antibiotic treatment if you do not finish your prescription. Common side effects are upset stomach and diarrhea. Take your antibiotics with food unless otherwise indicated to help with indigestion. Taking an emmf-mcz-qeosnmr probiotic or eating yogurt with live and active cultures three times a day can help prevent antibiotic-associated diarrhea. Call your provider immediately if you develop rashes or hives as this could be a delayed allergic reaction. Seek emergency treatment if you develop severe allergic reaction symptoms such as mouth or tongue swelling. Instruct on ongoing discharge plan Problem:Discharge Goal:Manage discharge planning Completed Ongoing Discharge plan: Discharge plan discussed with patient including frequency and duration for home SN and plan for transition to: live independently at home without ongoing services. Instruct on importance of follow-up appts and continued monitoring with medical provider &/or chronic care clinic Problem:Discharge Goal:Manage discharge planning Completed Education provided on importance of compliance with follow-up appointment(s). Recommendations: None Instruct patient/cargiver on management of infusion and access device Problem:SN IV THERAPY Goal:Patient/Caregive r will remain free of IV therapy complications Completed patient instructed on the following: name, purpose and goal of infusion therapy, how to contact [facility], how and when to contact the pharmacy, aseptic handling and maintaining a clean area for infusion therapy supplies, preparation and administration of infusion, safe handling, storage and disposal of infusion therapy supplies, medications, flushes and hazardous waste and flushing the venous access device Instruct patient/caregiver healing process and management measures to promote healing and avoid complications Problem:SN Integumentary/Wounds Goal:Patient/Caregive r will have improved healing and be free of signs and symptoms of complications Completed patient instructed on the following: healing process and signs and symptoms of infection. Instruct Patient/Caregiver on wound/incision care procedure as ordered by physician Description: keep incision open to air, steri-strips will fall off on their own Problem:SN Integumentary/Wounds Goal:Patient/Caregive r will have improved healing and be free of signs and symptoms of complications Completed patient instructed on wound care as ordered by Physician. Instruct and educate on knowledge deficits Problem:SN Learning Assessment Goal:Demonstrate understanding of education Completed patient verbalize and/or demonstrate understanding of nursing education completed today. Education methods include: verbal cues and teach back. Further education required to improve knowledge and compliance with fall prevention/home safety strategies, incision/wound care management, infusion care management, medication management, nutrition and pain management. [facility] Visit Details Visit Type -SN ROUTINE IV Discipline -Half-Way Problems Problem Description Start Date Status Goals Interve ntions Medication Education Disciplines: Skilled Services 11/03/2024 Active 1 goal linked to scheduled/documente d intervention 1 goal intervention scheduled/documente d in this visit Sepsis Disciplines: Skilled Services 11/03/2024 Active 1 goal linked to scheduled/documente d intervention 1 goal intervention scheduled/documente d in this visit Physician Specific Parameters Disciplines: Skilled Services 11/03/2024 Active 1 goal linked to scheduled/documente d intervention 1 goal intervention scheduled/documente d in this visit Pain Disciplines: Skilled Services 11/03/2024 Active 1 goal linked to scheduled/documente d intervention 1 goal intervention scheduled/documente d in this visit High Risk Medications Disciplines: Skilled Services 11/03/2024 Active 1 goal linked to scheduled/documente d intervention 1 goal intervention scheduled/documente d in this visit SN IV THERAPY Disciplines: SN 11/03/2024 Active 1 goal linked to scheduled/documente d intervention 1 goal intervention scheduled/documente d in this visit SN Learning Assessment Disciplines: SN 11/03/2024 Active 1 goal linked to scheduled/documente d intervention 1 goal intervention scheduled/documente d in this visit Goals Goal Associated Problem Outcome Goal Met? Visit Notes Patient/caregiver will demonstrate ability to obtain, store, identify and administer ordered medications, keep accurate medication list in home, and adhere to medication schedule Description: Patient/caregiver will demonstrate ability to obtain, store, identify and administer ordered medications, keep accurate medication list in home, and adhere to medication schedule by 11/12/24. Medication Education No Patient/caregiver will be able to identify and report symptoms of sepsis Description: Patient/caregiver will be able to identify signs/symptoms of sepsis infection and will verbalize actions to take if suspected by 11/12/24. Sepsis No Patient to maintain parameters within physician-specified ranges throughout certification period Physician Specific Parameters No Manage Pain Description: Patient/caregiver will verbalize knowledge and understanding of appropriate techniques to control pain, including pain medication. Patient will verbalize or demonstrate an acceptable level of pain as eviden little by a pain score of 0/10 and improvement in ability to perform activities of daily living to be achieved by 11/12/24. Pain No Patient/caregiver will teach back high risk medication side effect and precaution education Description: STG Patient/caregiver will verbalize understanding of high risk medication side effects and precautions to be achieved by 11/12/24. LTG Patient/caregiver will continue to verbalize understanding of high risk medication side effects and precautions throughout certification period. High Risk Medications No Patient/Caregiver will remain free of IV therapy complications Description: Patient/caregiver will verbalize understanding of infusion therapy & demonstrate appropriate access device management as evidenced by patient remaining free of IV complications by CoPat end date of 11/12/24. SN IV THERAPY No Demonstrate understanding of education Description: Patient and/or caregiver will verbalize understanding of educational instruction provided throughout certification period. SN Learning Assessment No Interventions Intervention Associated Problem/Goal Status Variance Visit Notes Medication Education Description: Evaluate/instruct patient/caregiver on obtaining, storing, identifying and administering ordered medications as well as keeping accurate medication list in the home and adhereing to medication schedule Problem:Medication Education Goal:Patient/caregive r will demonstrate ability to obtain, store, identify and administer ordered medications, keep accurate medication list in home, and adhere to medication schedule Completed Patient instructed on importance of keeping accurate medication list in home, need to take up-to-date medication list to all medical provider appointments and adhering to medication schedule. Risk of Sepsis Description: Patient is at risk for sepsis. Monitor closely for s/s of sepsis. Problem:Sepsis Goal:Patient/caregive r will be able to identify and report symptoms of sepsis Completed SPO2 Description: Notify Dr. Chen if pulse ox is <92% at rest. Problem:Physician Specific Parameters Goal:Patient to maintain parameters within physician-specified ranges throughout certification period Completed Instruct on pain and instruct on strategies to control pain Problem:Pain Goal:Manage Pain Completed patient instructed on techniques to control pain including Pharmacological measures and Non-Pharmacological measures; rest, positioning/elevation and distraction. Antibiotic- educated on high risk medication Problem:High Risk Medications Goal:Patient/caregive r will teach back high risk medication side effect and precaution education Completed patient educated on taking medication(s) as prescribed by provider. Do not stop medication or alter doses without speaking with your provider. Discuss medication effectiveness or side effect concerns with your provider and home care team. Take the full dispensed amount even if you start feeling better, as bacteria can become resistant to antibiotic treatment if you do not finish your prescription. Common side effects are upset stomach and diarrhea. Take your antibiotics with food unless otherwise indicated to help with indigestion. Taking an avut-lru-hwtehar probiotic or eating yogurt with live and active cultures three times a day can help prevent antibiotic-associated diarrhea. Call your provider immediately if you develop rashes or hives as this could be a delayed allergic reaction. Seek emergency treatment if you develop severe allergic reaction symptoms such as mouth or tongue swelling. Instruct patient/cargiver on management of infusion and access device Problem:SN IV THERAPY Goal:Patient/Caregive r will remain free of IV therapy complications Completed patient instructed on the following: name, purpose and goal of infusion therapy, how to contact [facility], how and when to contact the pharmacy, aseptic handling and maintaining a clean area for infusion therapy supplies, preparation and administration of infusion, safe handling, storage and disposal of infusion therapy supplies, medications, flushes and hazardous waste and flushing the venous access device Instruct and educate on knowledge deficits Problem:SN Learning Assessment Goal:Demonstrate understanding of education Completed patient verbalize and/or demonstrate understanding of nursing education completed today. Education methods include: verbal cues, tactile cues, written instructions, visual cues and teach back. Further education required to improve knowledge and compliance with depression/anxiety care management, infusion care management, medication management and nutrition. [facility] Visit Details Visit Type -SN ROUTINE IV Discipline -Half-Way Problems Problem Description Start Date Status Goals Interve ntions Medication Education Disciplines: Skilled Services 11/03/2024 Active 1 goal linked to scheduled/documente d intervention 1 goal intervention scheduled/documente d in this visit Sepsis Disciplines: Skilled Services 11/03/2024 Active 1 goal linked to scheduled/documente d intervention 1 goal intervention scheduled/documente d in this visit Physician Specific Parameters Disciplines: Skilled Services 11/03/2024 Active 1 goal linked to scheduled/documente d intervention 1 goal intervention scheduled/documente d in this visit Risk for Falls Disciplines: Skilled Services 11/03/2024 Active 1 goal linked to scheduled/documente d intervention 1 goal intervention scheduled/documente d in this visit Pain Disciplines: Skilled Services 11/03/2024 Active 1 goal linked to scheduled/documente d intervention 1 goal intervention scheduled/documente d in this visit High Risk Medications Disciplines: Skilled Services 11/03/2024 Active 1 goal linked to scheduled/documente d intervention 2 goal interventions scheduled/documente d in this visit SN IV THERAPY Disciplines: SN 11/03/2024 Active 1 goal linked to scheduled/documente d intervention 1 goal intervention scheduled/documente d in this visit SN Integumentary/W ounds Disciplines: SN 11/03/2024 Active 1 goal linked to scheduled/documente d intervention 2 goal interventions scheduled/documente d in this visit SN Learning Assessment Disciplines: SN 11/03/2024 Active 1 goal linked to scheduled/documente d intervention 1 goal intervention scheduled/documente d in this visit Goals Goal Associated Problem Outcome Goal Met? Visit Notes Patient/caregiver will demonstrate ability to obtain, store, identify and administer ordered medications, keep accurate medication list in home, and adhere to medication schedule Description: Patient/caregiver will demonstrate ability to obtain, store, identify and administer ordered medications, keep accurate medication list in home, and adhere to medication schedule by 11/12/24. Medication Education No Patient/caregiver will be able to identify and report symptoms of sepsis Description: Patient/caregiver will be able to identify signs/symptoms of sepsis infection and will verbalize actions to take if suspected by 11/12/24. Sepsis No Patient to maintain parameters within physician-specified ranges throughout certification period Physician Specific Parameters No Manage Risk for falls Description: Patient/caregiver will verbalize knowledge of individualized fall prevention strategies by 11/12/24. Risk for Falls No Manage Pain Description: Patient/caregiver will verbalize knowledge and understanding of appropriate techniques to control pain, including pain medication. Patient will verbalize or demonstrate an acceptable level of pain as eviden little by a pain score of 0/10 and improvement in ability to perform activities of daily living to be achieved by 11/12/24. Pain No Patient/caregiver will teach back high risk medication side effect and precaution education Description: STG Patient/caregiver will verbalize understanding of high risk medication side effects and precautions to be achieved by 11/12/24. LTG Patient/caregiver will continue to verbalize understanding of high risk medication side effects and precautions throughout certification period. High Risk Medications No Patient/Caregiver will remain free of IV therapy complications Description: Patient/caregiver will verbalize understanding of infusion therapy & demonstrate appropriate access device management as evidenced by patient remaining free of IV complications by CoPat end date of 11/12/24. SN IV THERAPY No Patient/Caregiver will have improved healing and be free of signs and symptoms of complications Description: Patient/caregiver will verbalize management strategies to promote wound healing & prevent complications as evidenced by improved healing & no complications by 11/12/24. SN Integumentary/Wounds No Demonstrate understanding of education Description: Patient and/or caregiver will verbalize understanding of educational instruction provided throughout certification period. SN Learning Assessment No Interventions Intervention Associated Problem/Goal Status Variance Visit Notes Medication Education Description: Evaluate/instruct patient/caregiver on obtaining, storing, identifying and administering ordered medications as well as keeping accurate medication list in the home and adhereing to medication schedule Problem:Medication Education Goal:Patient/caregive r will demonstrate ability to obtain, store, identify and administer ordered medications, keep accurate medication list in home, and adhere to medication schedule Completed Patient instructed on adhering to medication schedule. Risk of Sepsis Description: Patient is at risk for sepsis. Monitor closely for s/s of sepsis. Problem:Sepsis Goal:Patient/caregive r will be able to identify and report symptoms of sepsis Completed SPO2 Description: Notify Dr. Chen if pulse ox is <92% at rest. Problem:Physician Specific Parameters Goal:Patient to maintain parameters within physician-specified ranges throughout certification period Completed Instruct on individual fall risk factors and strategies to prevent falls and injuries caused by falls. Problem:Risk for Falls Goal:Manage Risk for falls Completed SN: Patient instructed on Eliminating Environmental Hazards: Keep pathways clear Instruct on pain and instruct on strategies to control pain Problem:Pain Goal:Manage Pain Completed patient instructed on techniques to control pain including Non-Pharmacological measures; rest. Opioids- educated on high risk medication Problem:High Risk Medications Goal:Patient/caregive r will teach back high risk medication side effect and precaution education Completed patient educated on taking medication(s) as prescribed by provider. Do not stop medication or alter doses without speaking with your provider. Discuss medication effectiveness or side effect concerns with your provider and home care team. Only take opioids as prescribed, do not share your medications, and take proper precautions in storing and properly disposing of opioids once no longer needed. Possible side effects of opioid medication including sedation, decreased rate of breathing, and constipation. Report over sedation to prescribing provider and practice deep breathing techniques every hour while awake. Prevent constipation by increasing water and fiber intake, increasing activity as tolerated, and use stool softener(s) as prescribed. Antibiotic- educated on high risk medication Problem:High Risk Medications Goal:Patient/caregive r will teach back high risk medication side effect and precaution education Completed patient educated on taking medication(s) as prescribed by provider. Do not stop medication or alter doses without speaking with your provider. Discuss medication effectiveness or side effect concerns with your provider and home care team. Take the full dispensed amount even if you start feeling better, as bacteria can become resistant to antibiotic treatment if you do not finish your prescription. Common side effects are upset stomach and diarrhea. Take your antibiotics with food unless otherwise indicated to help with indigestion. Taking an tlvu-xuc-xuldbvs probiotic or eating yogurt with live and active cultures three times a day can help prevent antibiotic-associated diarrhea. Call your provider immediately if you develop rashes or hives as this could be a delayed allergic reaction. Seek emergency treatment if you develop severe allergic reaction symptoms such as mouth or tongue swelling. Instruct patient/cargiver on management of infusion and access device Problem:SN IV THERAPY Goal:Patient/Caregive r will remain free of IV therapy complications Completed patient instructed on the following: aseptic handling and maintaining a clean area for infusion therapy supplies, preparation and administration of infusion and safe handling, storage and disposal of infusion therapy supplies, medications, flushes and hazardous waste Instruct patient/caregiver healing process and management measures to promote healing and avoid complications Problem:SN Integumentary/Wounds Goal:Patient/Caregive r will have improved healing and be free of signs and symptoms of complications Completed patient instructed on the following: healing process and signs and symptoms of infection. Instruct Patient/Caregiver on wound/incision care procedure as ordered by physician Description: keep incision open to air, steri-strips will fall off on their own Problem:SN Integumentary/Wounds Goal:Patient/Caregive r will have improved healing and be free of signs and symptoms of complications Completed patient instructed on wound care as ordered by Physician. Instruct and educate on knowledge deficits Problem:SN Learning Assessment Goal:Demonstrate understanding of education Completed patient verbalize and/or demonstrate understanding of nursing education completed today. Education methods include: verbal cues, written instructions, visual cues and teach back. Further education required to improve knowledge and compliance with infusion care management. [facility] Visit Details Visit Type -SN ROUTINE IV Discipline -Half-Way Problems Problem Description Start Date Status Goals Interve ntions Medication Education Disciplines: Skilled Services 11/03/2024 Active 1 goal linked to scheduled/documente d intervention 1 goal intervention scheduled/documente d in this visit Sepsis Disciplines: Skilled Services 11/03/2024 Active 1 goal linked to scheduled/documente d intervention 1 goal intervention scheduled/documente d in this visit Physician Specific Parameters Disciplines: Skilled Services 11/03/2024 Active 1 goal linked to scheduled/documente d intervention 1 goal intervention scheduled/documente d in this visit Pain Disciplines: Skilled Services 11/03/2024 Active 1 goal linked to scheduled/documente d intervention 1 goal intervention scheduled/documente d in this visit High Risk Medications Disciplines: Skilled Services 11/03/2024 Active 1 goal linked to scheduled/documente d intervention 1 goal intervention scheduled/documente d in this visit SN IV THERAPY Disciplines: SN 11/03/2024 Active 1 goal linked to scheduled/documente d intervention 1 goal intervention scheduled/documente d in this visit Goals Goal Associated Problem Outcome Goal Met? Visit Notes Patient/caregiver will demonstrate ability to obtain, store, identify and administer ordered medications, keep accurate medication list in home, and adhere to medication schedule Description: Patient/caregiver will demonstrate ability to obtain, store, identify and administer ordered medications, keep accurate medication list in home, and adhere to medication schedule by 11/12/24. Medication Education No Patient/caregiver will be able to identify and report symptoms of sepsis Description: Patient/caregiver will be able to identify signs/symptoms of sepsis infection and will verbalize actions to take if suspected by 11/12/24. Sepsis No Patient to maintain parameters within physician-specified ranges throughout certification period Physician Specific Parameters No Manage Pain Description: Patient/caregiver will verbalize knowledge and understanding of appropriate techniques to control pain, including pain medication. Patient will verbalize or demonstrate an acceptable level of pain as eviden little by a pain score of 0/10 and improvement in ability to perform activities of daily living to be achieved by 11/12/24. Pain No Patient/caregiver will teach back high risk medication side effect and precaution education Description: STG Patient/caregiver will verbalize understanding of high risk medication side effects and precautions to be achieved by 11/12/24. LTG Patient/caregiver will continue to verbalize understanding of high risk medication side effects and precautions throughout certification period. High Risk Medications No Patient/Caregiver will remain free of IV therapy complications Description: Patient/caregiver will verbalize understanding of infusion therapy & demonstrate appropriate access device management as evidenced by patient remaining free of IV complications by CoPat end date of 11/12/24. SN IV THERAPY No Interventions Intervention Associated Problem/Goal Status Variance Visit Notes Medication Education Description: Evaluate/instruct patient/caregiver on obtaining, storing, identifying and administering ordered medications as well as keeping accurate medication list in the home and adhereing to medication schedule Problem:Medication Education Goal:Patient/caregive r will demonstrate ability to obtain, store, identify and administer ordered medications, keep accurate medication list in home, and adhere to medication schedule Completed Patient instructed on importance of keeping accurate medication list in home and need to take up-to-date medication list to all medical provider appointments. Risk of Sepsis Description: Patient is at risk for sepsis. Monitor closely for s/s of sepsis. Problem:Sepsis Goal:Patient/caregive r will be able to identify and report symptoms of sepsis Completed SPO2 Description: Notify Dr. Chen if pulse ox is <92% at rest. Problem:Physician Specific Parameters Goal:Patient to maintain parameters within physician-specified ranges throughout certification period Completed Instruct on pain and instruct on strategies to control pain Problem:Pain Goal:Manage Pain Completed patient instructed on techniques to control pain including Pharmacological measures. Antibiotic- educated on high risk medication Problem:High Risk Medications Goal:Patient/caregive r will teach back high risk medication side effect and precaution education Completed patient educated on taking medication(s) as prescribed by provider. Do not stop medication or alter doses without speaking with your provider. Discuss medication effectiveness or side effect concerns with your provider and home care team. Take the full dispensed amount even if you start feeling better, as bacteria can become resistant to antibiotic treatment if you do not finish your prescription. Common side effects are upset stomach and diarrhea. Take your antibiotics with food unless otherwise indicated to help with indigestion. Taking an [id number] probiotic or eating yogurt with live and active cultures three times a day can help prevent antibiotic-associated diarrhea. Call your provider immediately if you develop rashes or hives as this could be a delayed allergic reaction. Seek emergency treatment if you develop severe allergic reaction symptoms such as mouth or tongue swelling. Instruct patient/cargiver on management of infusion and access device Problem:SN IV THERAPY Goal:Patient/Caregive r will remain free of IV therapy complications Completed patient instructed on the following: name, purpose and goal of infusion therapy, how to contact [facility], how and when to contact the pharmacy, aseptic handling and maintaining a clean area for infusion therapy supplies, preparation and administration of infusion and safe handling, storage and disposal of infusion therapy supplies, medications, flushes and hazardous waste [facility] Visit Details Visit Type -SN ROUTINE IV Discipline -Half-Way Problems Problem Description Start Date Status Goals Interve ntions Medication Education Disciplines: Skilled Services 11/03/2024 Active 1 goal linked to scheduled/documente d intervention 1 goal intervention scheduled/documente d in this visit Sepsis Disciplines: Skilled Services 11/03/2024 Active 1 goal linked to scheduled/documente d intervention 1 goal intervention scheduled/documente d in this visit Physician Specific Parameters Disciplines: Skilled Services 11/03/2024 Active 1 goal linked to scheduled/documente d intervention 1 goal intervention scheduled/documente d in this visit Risk for Falls Disciplines: Skilled Services 11/03/2024 Active 1 goal linked to scheduled/documente d intervention 1 goal intervention scheduled/documente d in this visit Pain Disciplines: Skilled Services 11/03/2024 Active 1 goal linked to scheduled/documente d intervention 1 goal intervention scheduled/documente d in this visit High Risk Medications Disciplines: Skilled Services 11/03/2024 Active 1 goal linked to scheduled/documente d intervention 2 goal interventions scheduled/documente d in this visit Discharge Disciplines: Skilled Services 11/03/2024 Active 1 goal linked to scheduled/documente d intervention 1 goal intervention scheduled/documente d in this visit SN IV THERAPY Disciplines: SN 11/03/2024 Active 1 goal linked to scheduled/documente d intervention 2 goal interventions scheduled/documente d in this visit SN Integumentary/W ounds Disciplines: SN 11/03/2024 Active 1 goal linked to scheduled/documente d intervention 2 goal interventions scheduled/documente d in this visit SN Learning Assessment Disciplines: SN 11/03/2024 Active 1 goal linked to scheduled/documente d intervention 1 goal intervention scheduled/documente d in this visit SN Labwork Disciplines: SN 11/03/2024 Active 1 goal linked to scheduled/documente d intervention 1 goal intervention scheduled/documente d in this visit Goals Goal Associated Problem Outcome Goal Met? Visit Notes Patient/caregiver will demonstrate ability to obtain, store, identify and administer ordered medications, keep accurate medication list in home, and adhere to medication schedule Description: Patient/caregiver will demonstrate ability to obtain, store, identify and administer ordered medications, keep accurate medication list in home, and adhere to medication schedule by 11/12/24. Medication Education No Patient/caregiver will be able to identify and report symptoms of sepsis Description: Patient/caregiver will be able to identify signs/symptoms of sepsis infection and will verbalize actions to take if suspected by 11/12/24. Sepsis No Patient to maintain parameters within physician-specified ranges throughout certification period Physician Specific Parameters No Manage Risk for falls Description: Patient/caregiver will verbalize knowledge of individualized fall prevention strategies by 11/12/24. Risk for Falls No Manage Pain Description: Patient/caregiver will verbalize knowledge and understanding of appropriate techniques to control pain, including pain medication. Patient will verbalize or demonstrate an acceptable level of pain as eviden little by a pain score of 0/10 and improvement in ability to perform activities of daily living to be achieved by 11/12/24. Pain No Patient/caregiver will teach back high risk medication side effect and precaution education Description: STG Patient/caregiver will verbalize understanding of high risk medication side effects and precautions to be achieved by 11/12/24. LTG Patient/caregiver will continue to verbalize understanding of high risk medication side effects and precautions throughout certification period. High Risk Medications No Manage discharge planning Description: Patient/caregiver will verbalize understanding of ongoing discharge plan provided related to disease management, arrangements for outpatient and/or community services, obtaining medications, supplies, and DME, as needed [facility] certification period. Discharge No Patient/Caregiver will remain free of IV therapy complications Description: Patient/caregiver will verbalize understanding of infusion therapy & demonstrate appropriate access device management as evidenced by patient remaining free of IV complications by CoPat end date of 11/12/24. SN IV THERAPY No Patient/Caregiver will have improved healing and be free of signs and symptoms of complications Description: Patient/caregiver will verbalize management strategies to promote wound healing & prevent complications as evidenced by improved healing & no complications by 11/12/24. SN Integumentary/Wounds No Demonstrate understanding of education Description: Patient and/or caregiver will verbalize understanding of educational instruction provided throughout certification period. SN Learning Assessment No SN to obtain lab specimen without difficulty when ordered throughout certification period SN Labwork No Interventions Intervention Associated Problem/Goal Status Variance Visit Notes Medication Education Description: Evaluate/instruct patient/caregiver on obtaining, storing, identifying and administering ordered medications as well as keeping accurate medication list in the home and adhereing to medication schedule Problem:Medication Education Goal:Patient/caregive r will demonstrate ability to obtain, store, identify and administer ordered medications, keep accurate medication list in home, and adhere to medication schedule Completed Patient instructed on importance of keeping accurate medication list in home. Risk of Sepsis Description: Patient is at risk for sepsis. Monitor closely for s/s of sepsis. Problem:Sepsis Goal:Patient/caregive r will be able to identify and report symptoms of sepsis Completed SPO2 Description: Notify Dr. Chen if pulse ox is <92% at rest. Problem:Physician Specific Parameters Goal:Patient to maintain parameters within physician-specified ranges throughout certification period Completed Instruct on individual fall risk factors and strategies to prevent falls and injuries caused by falls. Problem:Risk for Falls Goal:Manage Risk for falls Completed SN: Patient instructed on Eliminating Environmental Hazards: Keep pathways clear and Keep pets out of pathways Instruct on pain and instruct on strategies to control pain Problem:Pain Goal:Manage Pain Completed patient instructed on techniques to control pain including Non-Pharmacological measures; rest, positioning/elevation and distraction. Opioids- educated on high risk medication Problem:High Risk Medications Goal:Patient/caregive r will teach back high risk medication side effect and precaution education Completed patient educated on taking medication(s) as prescribed by provider. Do not stop medication or alter doses without speaking with your provider. Discuss medication effectiveness or side effect concerns with your provider and home care team. Only take opioids as prescribed, do not share your medications, and take proper precautions in storing and properly disposing of opioids once no longer needed. Possible side effects of opioid medication including sedation, decreased rate of breathing, and constipation. Report over sedation to prescribing provider and practice deep breathing techniques every hour while awake. Prevent constipation by increasing water and fiber intake, increasing activity as tolerated, and use stool softener(s) as prescribed. Antibiotic- educated on high risk medication Problem:High Risk Medications Goal:Patient/caregive r will teach back high risk medication side effect and precaution education Completed patient educated on taking medication(s) as prescribed by provider. Do not stop medication or alter doses without speaking with your provider. Discuss medication effectiveness or side effect concerns with your provider and home care team. Take the full dispensed amount even if you start feeling better, as bacteria can become resistant to antibiotic treatment if you do not finish your prescription. Common side effects are upset stomach and diarrhea. Take your antibiotics with food unless otherwise indicated to help with indigestion. Taking an ffjr-cgr-[id number] probiotic or eating yogurt with live and active cultures three times a day can help prevent antibiotic-associated diarrhea. Call your provider immediately if you develop rashes or hives as this could be a delayed allergic reaction. Seek emergency treatment if you develop severe allergic reaction symptoms such as mouth or tongue swelling. Instruct on ongoing discharge plan Problem:Discharge Goal:Manage discharge planning Completed Ongoing Discharge plan: Discharge plan discussed with patient including frequency and duration for home SN and plan for transition to: live independently at home without ongoing services. Complete PICC catheter care per order Description: Measure external catheter length with every dressing change. Measure upper arm circumference at insertion site at initial assessment and when clinically indicated. Change needleless connector and extension tubing weekly and PRN. Change dressing weekly and PRN for lifting edges of dressing, visible soiling, presence of moisture, drainage or blood, compromised skin integrity. Cleanse site with 2% chlorhexidine gluconate for 30 seconds. Allow to air dry completely. Apply skin barrier solutio n and allow to air dry completely. Cover/secure with StatLock and transparent semi-permeable dressing with CHG pad. Problem:SN IV THERAPY Goal:Patient/Caregive r will remain free of IV therapy complications Completed Instruct patient/radhagiver on management of infusion and access device Problem:SN IV THERAPY Goal:Patient/Caregive r will remain free of IV therapy complications Completed patient instructed on the following: name, purpose and goal of infusion therapy, how to contact [facility], how and when to contact the pharmacy, aseptic handling and maintaining a clean area for infusion therapy supplies and preparation and administration of infusion Instruct patient/caregiver healing process and management measures to promote healing and avoid complications Problem:SN Integumentary/Wounds Goal:Patient/Caregive r will have improved healing and be free of signs and symptoms of complications Completed patient instructed on the following: healing process, signs and symptoms of infection, importance of good nutrition and when to report symptoms. Instruct Patient/Caregiver on wound/incision care procedure as ordered by physician Description: keep incision open to air, steri-strips will fall off on their own Problem:SN Integumentary/Wounds Goal:Patient/Caregive r will have improved healing and be free of signs and symptoms of complications Completed patient instructed on wound care as ordered by Physician. Instruct and educate on knowledge deficits Problem:SN Learning Assessment Goal:Demonstrate understanding of education Completed patient verbalize and/or demonstrate understanding of nursing education completed today. Education methods include: verbal cues. Further education required to improve knowledge and compliance with fall prevention/home safety strategies, incision/wound care management, infusion care management, medication management and nutrition. SN to obtain blood specimen (1) Description: Draw blood via PICC for CBC/diff, creatinine,LFT's with a frequency of weekly on Thursday. Results to [facility]. Phone/Fax number [phone]/ fx [phone] Dx code(s): T81.43XA, K65.1. If unable to draw blood through IV access device, may draw blood peripherally. Problem:SN Labwork Goal:SN to obtain lab specimen without difficulty when ordered throughout certification period Completed documented in this encounter [facility] Plan of care note* Visit Details Visit Type -SN IV 1 Discipline -Half-Way Problems Problem Description Start Date Status Goals Interve ntions Medication Education Disciplines: Skilled Services 11/03/2024 Active 1 goal linked to scheduled/documente d intervention 1 goal intervention scheduled/documente d in this visit Sepsis Disciplines: Skilled Services 11/03/2024 Active 1 goal linked to scheduled/documente d intervention 1 goal intervention scheduled/documente d in this visit Physician Specific Parameters Disciplines: Skilled Services 11/03/2024 Active 1 goal linked to scheduled/documente d intervention 1 goal intervention scheduled/documente d in this visit Risk for Falls Disciplines: Skilled Services 11/03/2024 Active 1 goal linked to scheduled/documente d intervention 1 goal intervention scheduled/documente d in this visit Pain Disciplines: Skilled Services 11/03/2024 Active 1 goal linked to scheduled/documente d intervention 1 goal intervention scheduled/documente d in this visit High Risk Medications Disciplines: Skilled Services 11/03/2024 Active 1 goal linked to scheduled/documente d intervention 2 goal interventions scheduled/documente d in this visit SN IV THERAPY Disciplines: SN 11/03/2024 Active 1 goal linked to scheduled/documente d intervention 2 goal interventions scheduled/documente d in this visit SN Integumentary/W ounds Disciplines: SN 11/03/2024 Active 1 goal linked to scheduled/documente d intervention 1 goal intervention scheduled/documente d in this visit SN Learning Assessment Disciplines: SN 11/03/2024 Active 1 goal linked to scheduled/documente d intervention 1 goal intervention scheduled/documente d in this visit Goals Goal Associated Problem Outcome Goal Met? Visit Notes Patient/caregiver will demonstrate ability to obtain, store, identify and administer ordered medications, keep accurate medication list in home, and adhere to medication schedule Description: Patient/caregiver will demonstrate ability to obtain, store, identify and administer ordered medications, keep accurate medication list in home, and adhere to medication schedule by 11/12/24. Medication Education No Patient/caregiver will be able to identify and report symptoms of sepsis Description: Patient/caregiver will be able to identify signs/symptoms of sepsis infection and will verbalize actions to take if suspected by 11/12/24. Sepsis No Patient to maintain parameters within physician-specified ranges throughout certification period Physician Specific Parameters No Manage Risk for falls Description: Patient/caregiver will verbalize knowledge of individualized fall prevention strategies by 11/12/24. Risk for Falls No Manage Pain Description: Patient/caregiver will verbalize knowledge and understanding of appropriate techniques to control pain, including pain medication. Patient will verbalize or demonstrate an acceptable level of pain as eviden little by a pain score of 0/10 and improvement in ability to perform activities of daily living to be achieved by 11/12/24. Pain No Patient/caregiver will teach back high risk medication side effect and precaution education Description: STG Patient/caregiver will verbalize understanding of high risk medication side effects and precautions to be achieved by 11/12/24. LTG Patient/caregiver will continue to verbalize understanding of high risk medication side effects and precautions throughout certification period. High Risk Medications No Patient/Caregiver will remain free of IV therapy complications Description: Patient/caregiver will verbalize understanding of infusion therapy & demonstrate appropriate access device management as evidenced by patient remaining free of IV complications by CoPat end date of 11/12/24. SN IV THERAPY No Patient/Caregiver will have improved healing and be free of signs and symptoms of complications Description: Patient/caregiver will verbalize management strategies to promote wound healing & prevent complications as evidenced by improved healing & no complications by 11/12/24. SN Integumentary/Wounds No Demonstrate understanding of education Description: Patient and/or caregiver will verbalize understanding of educational instruction provided throughout certification period. SN Learning Assessment No Interventions Intervention Associated Problem/Goal Status Variance Visit Notes Medication Education Description: Evaluate/instruct patient/caregiver on obtaining, storing, identifying and administering ordered medications as well as keeping accurate medication list in the home and adhereing to medication schedule Problem:Medication Education Goal:Patient/caregiv er will demonstrate ability to obtain, store, identify and administer ordered medications, keep accurate medication list in home, and adhere to medication schedule Completed Patient instructed on adhering to medication schedule. Risk of Sepsis Description: Patient is at risk for sepsis. Monitor closely for s/s of sepsis. Problem:Sepsis Goal:Patient/caregiv er will be able to identify and report symptoms of sepsis Completed SPO2 Description: Notify Dr. Chen if pulse ox is <92% at rest. Problem:Physician Specific Parameters Goal:Patient to maintain parameters within physician-specified ranges throughout certification period Completed Instruct on individual fall risk factors and strategies to prevent falls and injuries caused by falls. Problem:Risk for Falls Goal:Manage Risk for falls Completed SN: Patient instructed on Eliminating Environmental Hazards: Keep pathways clear and Keep rooms and walkways well lit Instruct on pain and instruct on strategies to control pain Problem:Pain Goal:Manage Pain Completed patient instructed on techniques to control pain including Pharmacological measures and Non-Pharmacological measures; positioning/elevation and breathing/relaxation. Opioids- educated on high risk medication Problem:High Risk Medications Goal:Patient/caregiv er will teach back high risk medication side effect and precaution education Completed patient educated on taking medication(s) as prescribed by provider. Do not stop medication or alter doses without speaking with your provider. Discuss medication effectiveness or side effect concerns with your provider and home care team. Only take opioids as prescribed, do not share your medications, and take proper precautions in storing and properly disposing of opioids once no longer needed. Possible side effects of opioid medication including sedation, decreased rate of breathing, and constipation. Report over sedation to prescribing provider and practice deep breathing techniques every hour while awake. Prevent constipation by increasing water and fiber intake, increasing activity as tolerated, and use stool softener(s) as prescribed. Antibiotic- educated on high risk medication Problem:High Risk Medications Goal:Patient/caregiv er will teach back high risk medication side effect and precaution education Completed patient educated on taking medication(s) as prescribed by provider. Do not stop medication or alter doses without speaking with your provider. Discuss medication effectiveness or side effect concerns with your provider and home care team. Take the full dispensed amount even if you start feeling better, as bacteria can become resistant to antibiotic treatment if you do not finish your prescription. Common side effects are upset stomach and diarrhea. Take your antibiotics with food unless otherwise indicated to help with indigestion. Taking an vyng-trn-xyhcrod probiotic or eating yogurt with live and active cultures three times a day can help prevent antibiotic-associated diarrhea. Call your provider immediately if you develop rashes or hives as this could be a delayed allergic reaction. Seek emergency treatment if you develop severe allergic reaction symptoms such as mouth or tongue swelling. Complete PICC catheter care per order Description: Measure external catheter length with every dressing change. Measure upper arm circumference at insertion site at initial assessment and when clinically indicated. Change needleless connector and extension tubing weekly and PRN. Change dressing weekly and PRN for lifting edges of dressing, visible soiling, presence of moisture, drainage or blood, compromised skin integrity. Cleanse site with 2% chlorhexidine gluconate for 30 seconds. Allow to air dry completely. Apply skin barrier solutio n and allow to air dry completely. Cover/secure with StatLock and transparent semi-permeable dressing with CHG pad. Problem:SN IV THERAPY Goal:Patient/Caregiv er will remain free of IV therapy complications Completed Instruct patient/cargiver on management of infusion and access device Problem:SN IV THERAPY Goal:Patient/Caregiv er will remain free of IV therapy complications Completed patient instructed on the following: name, purpose and goal of infusion therapy, how to contact [facility], how and when to contact the pharmacy, aseptic handling and maintaining a clean area for infusion therapy supplies, preparation and administration of infusion, safe handling, storage and disposal of infusion therapy supplies, medications, flushes and hazardous waste and flushing the venous access device Instruct patient/caregiver healing process and management measures to promote healing and avoid complications Problem:SN Integumentary/Wounds Goal:Patient/Caregiv er will have improved healing and be free of signs and symptoms of complications Completed patient instructed on the following: when to report symptoms. Instruct and educate on knowledge deficits Problem:SN Learning Assessment Goal:Demonstrate understanding of education Completed patient verbalize and/or demonstrate understanding of nursing education completed today. Education methods include: verbal cues, tactile cues, written instructions, visual cues and teach back. Further education required to improve knowledge and compliance with gastrointestinal care management, infusion care management, medication management, nutrition, pain management and surgical care precautions. [facility] Visit Details Visit Type -SN ROUTINE IV Discipline -Half-Way Problems Problem Description Start Date Status Goals Interve ntions Medication Education Disciplines: Skilled Services 11/03/2024 Active 1 goal linked to scheduled/documente d intervention 1 goal intervention scheduled/documente d in this visit Sepsis Disciplines: Skilled Services 11/03/2024 Active 1 goal linked to scheduled/documente d intervention 1 goal intervention scheduled/documente d in this visit Physician Specific Parameters Disciplines: Skilled Services 11/03/2024 Active 1 goal linked to scheduled/documente d intervention 1 goal intervention scheduled/documente d in this visit Risk for Falls Disciplines: Skilled Services 11/03/2024 Active 1 goal linked to scheduled/documente d intervention 1 goal intervention scheduled/documente d in this visit High Risk Medications Disciplines: Skilled Services 11/03/2024 Active 1 goal linked to scheduled/documente d intervention 1 goal intervention scheduled/documente d in this visit SN IV THERAPY Disciplines: 11/03/2024 Active 1 goal linked to scheduled/documente d intervention 2 goal interventions scheduled/documente d in this visit SN Integumentary/W ounds Disciplines: 11/03/2024 Active 1 goal linked to scheduled/documente d intervention 1 goal intervention scheduled/documente d in this visit SN Learning Assessment Disciplines: 11/03/2024 Active 1 goal linked to scheduled/documente d intervention 1 goal intervention scheduled/documente d in this visit SN Labwork Disciplines: 11/03/2024 Active 1 goal linked to scheduled/documente d intervention 1 goal intervention scheduled/documente d in this visit Goals Goal Associated Problem Outcome Goal Met? Visit Notes Patient/caregiver will demonstrate ability to obtain, store, identify and administer ordered medications, keep accurate medication list in home, and adhere to medication schedule Description: Patient/caregiver will demonstrate ability to obtain, store, identify and administer ordered medications, keep accurate medication list in home, and adhere to medication schedule by 11/12/24. Medication Education No Patient/caregiver will be able to identify and report symptoms of sepsis Description: Patient/caregiver will be able to identify signs/symptoms of sepsis infection and will verbalize actions to take if suspected by 11/12/24. Sepsis No Patient to maintain parameters within physician-specified ranges throughout certification period Physician Specific Parameters No Manage Risk for falls Description: Patient/caregiver will verbalize knowledge of individualized fall prevention strategies by 11/12/24. Risk for Falls No Patient/caregiver will teach back high risk medication side effect and precaution education Description: STG Patient/caregiver will verbalize understanding of high risk medication side effects and precautions to be achieved by 11/12/24. LTG Patient/caregiver will continue to verbalize understanding of high risk medication side effects and precautions throughout certification period. High Risk Medications No Patient/Caregiver will remain free of IV therapy complications Description: Patient/caregiver will verbalize understanding of infusion therapy & demonstrate appropriate access device management as evidenced by patient remaining free of IV complications by CoPat end date of 11/12/24. SN IV THERAPY No Patient/Caregiver will have improved healing and be free of signs and symptoms of complications Description: Patient/caregiver will verbalize management strategies to promote wound healing & prevent complications as evidenced by improved healing & no complications by 11/12/24. SN Integumentary/Wounds No Demonstrate understanding of education Description: Patient and/or caregiver will verbalize understanding of educational instruction provided throughout certification period. SN Learning Assessment No SN to obtain lab specimen without difficulty when ordered throughout certification period SN Labwork No Interventions Intervention Associated Problem/Goal Status Variance Visit Notes Medication Education Description: Evaluate/instruct patient/caregiver on obtaining, storing, identifying and administering ordered medications as well as keeping accurate medication list in the home and adhereing to medication schedule Problem:Medication Education Goal:Patient/caregiv er will demonstrate ability to obtain, store, identify and administer ordered medications, keep accurate medication list in home, and adhere to medication schedule Completed Patient instructed on adhering to medication schedule. Risk of Sepsis Description: Patient is at risk for sepsis. Monitor closely for s/s of sepsis. Problem:Sepsis Goal:Patient/caregiv er will be able to identify and report symptoms of sepsis Completed SPO2 Description: Notify Dr. Chen if pulse ox is <92% at rest. Problem:Physician Specific Parameters Goal:Patient to maintain parameters within physician-specified ranges throughout certification period Completed Instruct on individual fall risk factors and strategies to prevent falls and injuries caused by falls. Problem:Risk for Falls Goal:Manage Risk for falls Completed SN: Patient instructed on Eliminating Environmental Hazards: Keep pathways clear and Keep rooms and walkways well lit Antibiotic- educated on high risk medication Problem:High Risk Medications Goal:Patient/caregiv er will teach back high risk medication side effect and precaution education Completed patient educated on taking medication(s) as prescribed by provider. Do not stop medication or alter doses without speaking with your provider. Discuss medication effectiveness or side effect concerns with your provider and home care team. Take the full dispensed amount even if you start feeling better, as bacteria can become resistant to antibiotic treatment if you do not finish your prescription. Common side effects are upset stomach and diarrhea. Take your antibiotics with food unless otherwise indicated to help with indigestion. Taking an upcd-bks-zrnigty probiotic or eating yogurt with live and active cultures three times a day can help prevent antibiotic-associated diarrhea. Call your provider immediately if you develop rashes or hives as this could be a delayed allergic reaction. Seek emergency treatment if you develop severe allergic reaction symptoms such as mouth or tongue swelling. Complete PICC catheter care per order Description: Measure external catheter length with every dressing change. Measure upper arm circumference at insertion site at initial assessment and when clinically indicated. Change needleless connector and extension tubing weekly and PRN. Change dressing weekly and PRN for lifting edges of dressing, visible soiling, presence of moisture, drainage or blood, compromised skin integrity. Cleanse site with 2% chlorhexidine gluconate for 30 seconds. Allow to air dry completely. Apply skin barrier solutio n and allow to air dry completely. Cover/secure with StatLock and transparent semi-permeable dressing with CHG pad. Problem:SN IV THERAPY Goal:Patient/Caregiv er will remain free of IV therapy complications Completed Instruct patient/cargiver on management of infusion and access device Problem:SN IV THERAPY Goal:Patient/Caregiv er will remain free of IV therapy complications Completed patient instructed on the following: how to contact [facility] Instruct patient/caregiver healing process and management measures to promote healing and avoid complications Problem:SN Integumentary/Wounds Goal:Patient/Caregiv er will have improved healing and be free of signs and symptoms of complications Completed patient instructed on the following: healing process. Instruct and educate on knowledge deficits Problem:SN Learning Assessment Goal:Demonstrate understanding of education Completed patient verbalize and/or demonstrate understanding of nursing education completed today. Education methods include: verbal cues. Further education required to improve knowledge and compliance with fall prevention/home safety strategies, gastrointestinal care management, infusion care management, nutrition and pain management. SN to obtain blood specimen (1) Description: Draw blood via PICC for CBC/diff, creatinine,LFT's , Pre-Dose Vancomycin with a frequency of weekly on Thursday. Results to Guillermo Monique. Phone/Fax number [phone]/ fx [phone] Dx code(s): T81.43XA, K65.1. If unable to draw blood through IV access device, may draw blood peripherally. Problem:SN Labwork Goal:SN to obtain lab specimen without difficulty when ordered throughout certification period Completed [facility] Visit Details Visit Type -Care Coordinatio n Discipline -Main Line Station Engineer Problems Problem Description Start Date Status Goals Interve ntions 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 MACHINE TENDER Referral Disciplines: Skilled Services 11/03/2024 Resolved on 11/23/2024 1 goal linked to scheduled/document ed intervention 1 goal intervention scheduled/document ed in this visit Goals Goal Associated Problem Outcome Goal Met? Visit Notes Patient will be referred to additional discipline as needed 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 MACHINE TENDER Referral Completed Yes Interventions Intervention Associated Problem/Goal Status Variance Visit Notes 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 MACHINE TENDER evaluation and treatment Description: 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 MACHINE TENDER Referral eval and treat for Request for application for Financial Assistance. Problem: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 MACHINE TENDER Referral Goal:Patient will be referred to additional discipline as needed Completed [facility] Visit Details Visit Type -SN AGENCY DC W V ISIT IV Discipline -Half-Way Problems Problem Description Start Date Status Goals Interve ntions Medication Education Disciplines: Skilled Services 11/03/2024 Resolved on 11/26/2024 1 goal linked to scheduled/document ed intervention 1 goal intervention scheduled/document ed in this visit Mental Health Disciplines: Skilled Services 11/03/2024 Resolved on 11/26/2024 1 goal linked to scheduled/document ed intervention 1 goal intervention scheduled/document ed in this visit Sepsis Disciplines: Skilled Services 11/03/2024 Resolved on 11/26/2024 1 goal linked to scheduled/document ed intervention 1 goal intervention scheduled/document ed in this visit Physician Specific Parameters Disciplines: Skilled Services 11/03/2024 Resolved on 11/26/2024 1 goal linked to scheduled/document ed intervention 1 goal intervention scheduled/document ed in this visit Risk for Falls Disciplines: Skilled Services 11/03/2024 Resolved on 11/26/2024 1 goal linked to scheduled/document ed intervention 1 goal intervention scheduled/document ed in this visit Pain Disciplines: Skilled Services 11/03/2024 Resolved on 11/26/2024 1 goal linked to scheduled/document ed intervention 1 goal intervention scheduled/document ed in this visit High Risk Medications Disciplines: Skilled Services 11/03/2024 Resolved on 11/26/2024 1 goal linked to scheduled/document ed intervention Discharge Disciplines: Skilled Services 11/03/2024 Resolved on 11/26/2024 1 goal linked to scheduled/document ed intervention 1 goal intervention scheduled/document ed in this visit SN IV THERAPY Disciplines: SN 11/03/2024 Resolved on 11/26/2024 1 goal linked to scheduled/document ed intervention 1 goal intervention scheduled/document ed in this visit SN Integumentary/ Wounds Disciplines: SN 11/03/2024 Resolved on 11/26/2024 1 goal linked to scheduled/document ed intervention SN Learning Assessment Disciplines: SN 11/03/2024 Resolved on 11/26/2024 1 goal linked to scheduled/document ed intervention 1 goal intervention scheduled/document ed in this visit SN Labwork Disciplines: SN 11/03/2024 Resolved on 11/26/2024 1 goal linked to scheduled/document ed intervention Goals Goal Associated Problem Outcome Goal Met? Visit Notes Patient/caregiver will demonstrate ability to obtain, store, identify and administer ordered medications, keep accurate medication list in home, and adhere to medication schedule Description: Patient/caregiver will demonstrate ability to obtain, store, identify and administer ordered medications, keep accurate medication list in home, and adhere to medication schedule by 11/12/24. Medication Education Completed Yes Goal Met Improved management of mental health condition(s) Description: Patient/caregiver will teach back mental health symptom identification and management techniques by 11/12/24. Mental Health Completed Yes Goal Met Patient/caregiver will be able to identify and report symptoms of sepsis Description: Patient/caregiver will be able to identify signs/symptoms of sepsis infection and will verbalize actions to take if suspected by 11/12/24. Sepsis Completed Yes Goal Met Patient to maintain parameters within physician-specified ranges throughout certification period Physician Specific Parameters Completed Yes Goal Met Manage Risk for falls Description: Patient/caregiver will verbalize knowledge of individualized fall prevention strategies by 11/12/24. Risk for Falls Completed Yes Goal Met Manage Pain Description: Patient/caregiver will verbalize knowledge and understanding of appropriate techniques to control pain, including pain medication. Patient will verbalize or demonstrate an acceptable level of pain as eviden little by a pain score of 0/10 and improvement in ability to perform activities of daily living to be achieved by 11/12/24. Pain Completed Yes Goal Met Patient/caregiver will teach back high risk medication side effect and precaution education Description: STG Patient/caregiver will verbalize understanding of high risk medication side effects and precautions to be achieved by 11/12/24. LTG Patient/caregiver will continue to verbalize understanding of high risk medication side effects and precautions throughout certification period. High Risk Medications Completed Yes Goal Met Manage discharge planning Description: Patient/caregiver will verbalize understanding of ongoing discharge plan provided related to disease management, arrangements for outpatient and/or community services, obtaining medications, supplies, and DME, as needed [facility] certification period. Discharge Completed Yes Goal Met Patient/Caregiver will remain free of IV therapy complications Description: Patient/caregiver will verbalize understanding of infusion therapy & demonstrate appropriate access device management as evidenced by patient remaining free of IV complications by CoPat end date of 11/12/24. SN IV THERAPY Completed Yes Goal Met Patient/Caregiver will have improved healing and be free of signs and symptoms of complications Description: Patient/caregiver will verbalize management strategies to promote wound healing & prevent complications as evidenced by improved healing & no complications by 11/12/24. SN Integumentary/Wounds Completed Yes Goal Met Demonstrate understanding of education Description: Patient and/or caregiver will verbalize understanding of educational instruction provided throughout certification period. SN Learning Assessment Completed Yes Goal Met SN to obtain lab specimen without difficulty when ordered throughout certification period SN Labwork Completed Yes Goal Met Interventions Intervention Associated Problem/Goal Status Variance Visit Notes Medication Education Description: Evaluate/instruct patient/caregiver on obtaining, storing, identifying and administering ordered medications as well as keeping accurate medication list in the home and adhereing to medication schedule Problem:Medication Education Goal:Patient/caregive r will demonstrate ability to obtain, store, identify and administer ordered medications, keep accurate medication list in home, and adhere to medication schedule Completed Patient instructed on importance of keeping accurate medication list in home, need to take up-to-date medication list to all medical provider appointments, adhering to medication schedule, proper storage of medications and medication, route, dose, frequency, purpose, and side effects of medications. Instruct on coping strategies Problem:Mental Health Goal:Improved management of mental health condition(s) Completed Risk of Sepsis Description: Patient is at risk for sepsis. Monitor closely for s/s of sepsis. Problem:Sepsis Goal:Patient/caregive r will be able to identify and report symptoms of sepsis Completed SPO2 Description: Notify Dr. Chen if pulse ox is <92% at rest. Problem:Physician Specific Parameters Goal:Patient to maintain parameters within physician-specified ranges throughout certification period Completed Instruct on individual fall risk factors and strategies to prevent falls and injuries caused by falls. Problem:Risk for Falls Goal:Manage Risk for falls Completed SN: Patient instructed on Eliminating Environmental Hazards: Keep pathways clear, Keep pets out of pathways, Remove unsafe rugs, Move furniture from pathways, Keep rooms and walkways well lit, Install hand rails/grab bars and Wear supportive shoes or non-skid socks Instruct on pain and instruct on strategies to control pain Problem:Pain Goal:Manage Pain Completed patient instructed on techniques to control pain including Pharmacological measures and Non-Pharmacological measures; rest, positioning/elevation, mobility/therapeutic exercise, distraction, breathing/relaxation and use of DME/assistive devices. Instruct on final discharge plan and deliver discharge instructions Problem:Discharge Goal:Manage discharge planning Completed Delivered Discharge plan: Discharge plan discussed with patient for plan for transition to: live independently at home without ongoing services Remove PICC line/midline catheter per physician order Description: Per Dr. Guillermo Monique- stop copat 11/25/24, remvoe picc line as soon as possible. Problem:SN IV THERAPY Goal:Patient/Caregive r will remain free of IV therapy complications Completed Completed Patient Tolerated Procedure Patient did tolerate procedure well. Instruct and educate on knowledge deficits Problem:SN Learning Assessment Goal:Demonstrate understanding of education Completed patient verbalize and/or demonstrate understanding of nursing education completed today. Education methods include: verbal cues and written instructions. Further education required to improve knowledge and compliance with depression/anxiety care management, fall prevention/home safety strategies, infection control precautions, integumentary care management, medication management, nutrition and pain management. documented in this encounter [facility] for referral (narrative)* Diagnostic Procedure Only (Routine) - Pending Review Specialty Diagnoses / Procedures Referred By Ilan t Referred To Contact [facility] Diagnoses Encounter for screening mammogram for breast cancer Procedures JADEN SCREENING SCREENING MAMMOGRAPHY BI 2-VIEW BREAST INC CAD Anmol Chen MD [address] [place] [address] [facility] [address] [place] [address] Referral ID Status Reason Start Date Expiration Date Visits Requested Visits Authorized [id number] Pending Review Auto-Generat ed Referral 02/26/2022 03/28/2023 1 1 [facility] for referral (narrative)* Diagnostic Procedure Only (Routine) - Pending Review Specialty Diagnoses / Procedures Referred By Ilan t Referred To Contact [facility] Diagnoses Encounter for screening mammogram for breast cancer Procedures JADEN SCREENING SCREENING MAMMOGRAPHY BI 2-VIEW BREAST INC CAD Anmol Chen MD [address] [place] [address] [facility] [address] [place] [address] Referral ID Status Reason Start Date Expiration Date Visits Requested Visits Authorized [id number] Pending Review Auto-Generat ed Referral 01/13/2024 02/11/2025 1 1 [facility] for referral (narrative)No reason for referral information [facility] Work Phone: Reason for visit Narrative* Financial Clearance (Routine) - Authorized Specialty Diagnoses / Procedures [facility] Diagnoses medically necessary appts only Procedures medically necessary appts only Self [facility] [id number] Referral ID Status Reason Start Date Expiration Date Visits Requested Visits Authorized [id number] Authorized Patient Cleared - Qualified 100% FAS 10/30/2024 01/28/2025 99 99 [facility] for visit Narrative* Financial Clearance (Routine) - Authorized Specialty Diagnoses / Procedures [facility] Diagnoses medically necessary appts only Procedures medically necessary appts only Self [facility] [id number] Referral ID Status Reason Start Date Expiration Date Visits Requested Visits Authorized [id number] Authorized Patient Cleared - Qualified 100% FAS 10/30/2024 01/28/2025 99 99 [facility] En[facility] - Charleen - 11/03/2024 2:03 PM EST Record ID: [id number] Patient name: Jenna Valadez Date: November 03, 2024 - 09:03 Administered by: CHARLEEN Protocol: -> Great! Now we are in a secure chat environment. Protecting your health information is important to us. Ok, let's get started. Please verify your name and date of . Please click on the button with your first name. -> Jenna Got it. On to the next question... Select the button with your last name. -> Valadez Got it, thank you. Please enter your date of in MM/DD/YYYY format:(e.g., 09/18/1971 for Sep 18, 1971) -> 1970 Thank you for verifying your information. I'd like to ask you a few questions about how your recovery is going. Since leaving the hospital, do you have any new or worsening symptoms? 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 Advance Directive(s) Advance Directive(s) 03/11/2020 10:57 AM Advance Directive(s) 11/24/2018 11:59 AM Advance Directive(s) 08/19/2016 7:39 AM Advance Directive(s) 08/18/2016 3:15 PM Documents on File Type Date Recorded 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 Advance Directive(s) Advance Directive(s) 03/11/2020 10:57 AM Advance Directive(s) 11/24/2018 11:59 AM Advance Directive(s) 08/19/2016 7:39 AM Advance Directive(s) 08/18/2016 3:15 PM Documents on File Type Date Recorded 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 Yes January 04, 2025 4:37am Advance Directive Response Recorded Date/ Time Do you have a Healthcare Power of Keyliner? Yes January 04, 2025 4:37am Do you have a Healthcare Power of Keyliner? Yes January 15, 2025 8:54am Advance Directive Response Recorded Date/ Time Do you have a Healthcare Power of Keyliner? Yes January 04, 2025 4:37am Do you have a Healthcare Power of Keyliner? Yes January 15, 2025 8:54am Do you have a Healthcare Power of Keyliner? No March 21, 2025 3:48am Health Concerns Infection Onset Date Last Indicated Resolved Time COVID-19 Rule-Out 03/26/2023 03/26/2023 Reason for Referral Specialty Diagnoses / Procedures Referred By Ilan t Referred To Contact Diagnoses Anxiety neurosis Mood disorder (HCC) Procedures CONSULT TO PSYCHIATRY OFFICE/OUTPATIENT [facility] 60 MINUTES Qian Somers PA-C [address] [place] [address] [facility] [address] [place] [address] Referral ID Status Reason Start Date Expiration Date Visits Requested Visits Authorized [id number] Authorized PCP Requested Referral Financial Clearance Required - Self Pay Patient Cleared - Qualified [id number]/501/[id number] 01/12/2024 04/13/2024 99 99 Chief Complaint and Reason for Visit Chief Complaint Admit Date PE/NON DOT/PHYSICAL/[facility] [employer] [facility] December 07, 2024 1:12pm diarrhea January 04, 2025 4:33am Reason for Visit Admit Date Physical exam, pre-employment December 07, 2024 1:12pm Chief Complaint Admit Date PE/NON DOT/PHYSICAL/[facility] [employer] [facility] December 07, 2024 1:12pm diarrhea January 04, 2025 4:33am diarrhea January 15, 2025 8:32a m Chief Complaint Admit Date PE/NON DOT/PHYSICAL/[facility] [employer] [facility] December 07, 2024 1:12pm diarrhea January 04, 2025 4:33am diarrhea January 15, 2025 8:32a m PE NON DOT DRUG SCREEN/[place] M ay 2024 12:17pm Chief Complaint Admit Date PE/NON DOT/PHYSICAL/[facility] December 07, 2024 1:12pm diarrhea January 04, 2025 4:33am diarrhea January 15, 2025 8:32a m PE NON DOT DRUG SCREEN/[place] M ay 2024 12:17pm dental pain March 21, 2025 3:48 am Additional Source Comments INFORMATION SOURCE (unrecogn ized section and content) DATE CREATED AUTHOR 11/28/2018 [facility] DATE CREATED AUTHOR AUTHOR'S ORGANIZ ATION 11/17/2024 [facility] DATE CREATED AUTHOR AUTHOR'S ORGANIZ ATION 12/04/2024 [facility] DATE CREATED AUTHOR AUTHOR'S ORGANIZ ATION 02/06/2025 [facility] DATE CREATED AUTHOR AUTHOR'S ORGANIZ ATION 03/20/2025 [facility] Source Comments (unrecognize d section and content) In the event this informatio n is protected by the Federal Confidentiality of Alcohol and Drug Abuse Patient Records regulations: The Federal rules restrict any use of the information to criminally investigate or prosecute any alcohol or drug abuse patient.[facility] the event this information is protected by the Federal Confidentiality of Alcohol and Drug Abuse Patient Records regulations: The Federal rules restrict any use of the information to criminally investigate or prosecute any alcohol or drug abuse patient.[facility]In the event this information is protected by the Federal Confidentiality of Alcohol and Drug Abuse Patient Records regulations: The Federal rules restrict any use of the information to criminally investigate or prosecute any alcohol or drug abuse patient.[facility]In the event this information is protected by the Federal Confidentiality of Alcohol and Drug Abuse Patient Records regulations: The Federal rules restrict any use of the information to criminally investigate or prosecute any alcohol or drug abuse patient.[facility]In the event this information is protected by the Federal Confidentiality of Alcohol and Drug Abuse Patient Records regulations: The Federal rules restrict any use of the information to criminally investigate or prosecute any alcohol or drug abuse patient.[facility] HospitalIn the event this information is protected by the Federal Confidentiality of Alcohol and Drug Abuse Patient Records regulations: The Federal rules restrict any use of the information to criminally investigate or prosecute any alcohol or drug abuse patient.[facility] HospitalIn the event this information is protected by the Federal Confidentiality of Alcohol and Drug Abuse Patient Records regulations: The Federal rules restrict any use of the information to criminally investigate or prosecute any alcohol or drug abuse patient.[facility] HospitalIn the event this information is protected by the Federal Confidentiality of Alcohol and Drug Abuse Patient Records regulations: The Federal rules restrict any use of the information to criminally investigate or prosecute any alcohol or drug abuse patient.[facility] HospitalIn the event this information is protected by the Federal Confidentiality of Alcohol and Drug Abuse Patient Records regulations: The Federal rules restrict any use of the information to criminally investigate or prosecute any alcohol or drug abuse patient.[facility] HospitalIn the event this information is protected by the Federal Confidentiality of Alcohol and Drug Abuse Patient Records regulations: The Federal rules restrict any use of the information to criminally investigate or prosecute any alcohol or drug abuse patient.[facility] HospitalIn the event this information is protected by the Federal Confidentiality of Alcohol and Drug Abuse Patient Records regulations: The Federal rules restrict any use of the information to criminally investigate or prosecute any alcohol or drug abuse patient.[facility] HospitalIn the event this information is protected by the Federal Confidentiality of Alcohol and Drug Abuse Patient Records regulations: The Federal rules restrict any use of the information to criminally investigate or prosecute any alcohol or drug abuse patient.[facility] HospitalIn the event this information is protected by the Federal Confidentiality of Alcohol and Drug Abuse Patient Records regulations: The Federal rules restrict any use of the information to criminally investigate or prosecute any alcohol or drug abuse patient.[facility] HospitalIn the event this information is protected by the Federal Confidentiality of Alcohol and Drug Abuse Patient Records regulations: The Federal rules restrict any use of the information to criminally investigate or prosecute any alcohol or drug abuse patient.[facility] HospitalIn the event this information is protected by the Federal Confidentiality of Alcohol and Drug Abuse Patient Records regulations: The Federal rules restrict any use of the information to criminally investigate or prosecute any alcohol or drug abuse patient.[facility] HospitalIn the event this information is protected by the Federal Confidentiality of Alcohol and Drug Abuse Patient Records regulations: The Federal rules restrict any use of the information to criminally investigate or prosecute any alcohol or drug abuse patient.[facility] HospitalIn the event this information is protected by the Federal Confidentiality of Alcohol and Drug Abuse Patient Records regulations: The Federal rules restrict any use of the information to criminally investigate or prosecute any alcohol or drug abuse patient.[facility] HospitalIn the event this information is protected by the Federal Confidentiality of Alcohol and Drug Abuse Patient Records regulations: The Federal rules restrict any use of the information to criminally investigate or prosecute any alcohol or drug abuse patient.[facility] HospitalIn the event this information is protected by the Federal Confidentiality of Alcohol and Drug Abuse Patient Records regulations: The Federal rules restrict any use of the information to criminally investigate or prosecute any alcohol or drug abuse patient.[facility] HospitalIn the event this information is protected by the Federal Confidentiality of Alcohol and Drug Abuse Patient Records regulations: The Federal rules restrict any use of the information to criminally investigate or prosecute any alcohol or drug abuse patient.[facility] HospitalIn the event this information is protected by the Federal Confidentiality of Alcohol and Drug Abuse Patient Records regulations: The Federal rules restrict any use of the information to criminally investigate or prosecute any alcohol or drug abuse patient.[facility] HospitalIn the event this information is protected by the Federal Confidentiality of Alcohol and Drug Abuse Patient Records regulations: The Federal rules restrict any use of the information to criminally investigate or prosecute any alcohol or drug abuse patient.[facility] HospitalIn the event this information is protected by the Federal Confidentiality of Alcohol and Drug Abuse Patient Records regulations: The Federal rules restrict any use of the information to criminally investigate or prosecute any alcohol or drug abuse patient.[facility] HospitalIn the event this information is protected by the Federal Confidentiality of Alcohol and Drug Abuse Patient Records regulations: The Federal rules restrict any use of the information to criminally investigate or prosecute any alcohol or drug abuse patient.[facility] HospitalIn the event this information is protected by the Federal Confidentiality of Alcohol and Drug Abuse Patient Records regulations: The Federal rules restrict any use of the information to criminally investigate or prosecute any alcohol or drug abuse patient.[facility] HospitalIn the event this information is protected by the Federal Confidentiality of Alcohol and Drug Abuse Patient Records regulations: The Federal rules restrict any use of the information to criminally investigate or prosecute any alcohol or drug abuse patient.[facility] HospitalIn the event this information is protected by the Federal Confidentiality of Alcohol and Drug Abuse Patient Records regulations: The Federal rules restrict any use of the information to criminally investigate or prosecute any alcohol or drug abuse patient.[facility] HospitalIn the event this information is protected by the Federal Confidentiality of Alcohol and Drug Abuse Patient Records regulations: The Federal rules restrict any use of the information to criminally investigate or prosecute any alcohol or drug abuse patient.[facility] HospitalIn the event this information is protected by the Federal Confidentiality of Alcohol and Drug Abuse Patient Records regulations: The Federal rules restrict any use of the information to criminally investigate or prosecute any alcohol or drug abuse patient.[facility] HospitalIn the event this information is protected by the Federal Confidentiality of Alcohol and Drug Abuse Patient Records regulations: The Federal rules restrict any use of the information to criminally investigate or prosecute any alcohol or drug abuse patient.[facility] HospitalIn the event this information is protected by the Federal Confidentiality of Alcohol and Drug Abuse Patient Records regulations: The Federal rules restrict any use of the information to criminally investigate or prosecute any alcohol or drug abuse patient.[facility] HospitalIn the event this information is protected by the Federal Confidentiality of Alcohol and Drug Abuse Patient Records regulations: The Federal rules restrict any use of the information to criminally investigate or prosecute any alcohol or drug abuse patient.[facility] HospitalIn the event this information is protected by the Federal Confidentiality of Alcohol and Drug Abuse Patient Records regulations: The Federal rules restrict any use of the information to criminally investigate or prosecute any alcohol or drug abuse patient.[facility] HospitalIn the event this information is protected by the Federal Confidentiality of Alcohol and Drug Abuse Patient Records regulations: The Federal rules restrict any use of the information to criminally investigate or prosecute any alcohol or drug abuse patient.[facility] HospitalIn the event this information is protected by the Federal Confidentiality of Alcohol and Drug Abuse Patient Records regulations: The Federal rules restrict any use of the information to criminally investigate or prosecute any alcohol or drug abuse patient.[facility] HospitalIn the event this information is protected by the Federal Confidentiality of Alcohol and Drug Abuse Patient Records regulations: The Federal rules restrict any use of the information to criminally investigate or prosecute any alcohol or drug abuse patient.[facility] HospitalIn the event this information is protected by the Federal Confidentiality of Alcohol and Drug Abuse Patient Records regulations: The Federal rules restrict any use of the information to criminally investigate or prosecute any alcohol or drug abuse patient.[facility] HospitalIn the event this information is protected by the Federal Confidentiality of Alcohol and Drug Abuse Patient Records regulations: The Federal rules restrict any use of the information to criminally investigate or prosecute any alcohol or drug abuse patient.[facility] HospitalIn the event this information is protected by the Federal Confidentiality of Alcohol and Drug Abuse Patient Records regulations: The Federal rules restrict any use of the information to criminally investigate or prosecute any alcohol or drug abuse patient.[facility] HospitalIn the event this information is protected by the Federal Confidentiality of Alcohol and Drug Abuse Patient Records regulations: The Federal rules restrict any use of the information to criminally investigate or prosecute any alcohol or drug abuse patient.[facility] HospitalIn the event this information is protected by the Federal Confidentiality of Alcohol and Drug Abuse Patient Records regulations: The Federal rules restrict any use of the information to criminally investigate or prosecute any alcohol or drug abuse patient.[facility] HospitalIn the event this information is protected by the Federal Confidentiality of Alcohol and Drug Abuse Patient Records regulations: The Federal rules restrict any use of the information to criminally investigate or prosecute any alcohol or drug abuse patient.[facility] HospitalIn the event this information is protected by the Federal Confidentiality of Alcohol and Drug Abuse Patient Records regulations: The Federal rules restrict any use of the information to criminally investigate or prosecute any alcohol or drug abuse patient.[facility] HospitalIn the event this information is protected by the Federal Confidentiality of Alcohol and Drug Abuse Patient Records regulations: The Federal rules restrict any use of the information to criminally investigate or prosecute any alcohol or drug abuse patient.[facility] HospitalIn the event this information is protected by the Federal Confidentiality of Alcohol and Drug Abuse Patient Records regulations: The Federal rules restrict any use of the information to criminally investigate or prosecute any alcohol or drug abuse patient.[facility] HospitalIn the event this information is protected by the Federal Confidentiality of Alcohol and Drug Abuse Patient Records regulations: The Federal rules restrict any use of the information to criminally investigate or prosecute any alcohol or drug abuse patient.[facility] HospitalIn the event this information is protected by the Federal Confidentiality of Alcohol and Drug Abuse Patient Records regulations: The Federal rules restrict any use of the information to criminally investigate or prosecute any alcohol or drug abuse patient.[facility] HospitalIn the event this information is protected by the Federal Confidentiality of Alcohol and Drug Abuse Patient Records regulations: The Federal rules restrict any use of the information to criminally investigate or prosecute any alcohol or drug abuse patient.[facility] HospitalIn the event this information is protected by the Federal Confidentiality of Alcohol and Drug Abuse Patient Records regulations: The Federal rules restrict any use of the information to criminally investigate or prosecute any alcohol or drug abuse patient.[facility] HospitalIn the event this information is protected by the Federal Confidentiality of Alcohol and Drug Abuse Patient Records regulations: The Federal rules restrict any use of the information to criminally investigate or prosecute any alcohol or drug abuse patient.[facility] HospitalIn the event this information is protected by the Federal Confidentiality of Alcohol and Drug Abuse Patient Records regulations: The Federal rules restrict any use of the information to criminally investigate or prosecute any alcohol or drug abuse patient.[facility] HospitalIn the event this information is protected by the Federal Confidentiality of Alcohol and Drug Abuse Patient Records regulations: The Federal rules restrict any use of the information to criminally investigate or prosecute any alcohol or drug abuse patient.[facility] HospitalIn the event this information is protected by the Federal Confidentiality of Alcohol and Drug Abuse Patient Records regulations: The Federal rules restrict any use of the information to criminally investigate or prosecute any alcohol or drug abuse patient.[facility] HospitalIn the event this information is protected by the Federal Confidentiality of Alcohol and Drug Abuse Patient Records regulations: The Federal rules restrict any use of the information to criminally investigate or prosecute any alcohol or drug abuse patient.[facility] HospitalIn the event this information is protected by the Federal Confidentiality of Alcohol and Drug Abuse Patient Records regulations: The Federal rules restrict any use of the information to criminally investigate or prosecute any alcohol or drug abuse patient.[facility] HospitalIn the event this information is protected by the Federal Confidentiality of Alcohol and Drug Abuse Patient Records regulations: The Federal rules restrict any use of the information to criminally investigate or prosecute any alcohol or drug abuse patient.[facility] HospitalIn the event this information is protected by the Federal Confidentiality of Alcohol and Drug Abuse Patient Records regulations: The Federal rules restrict any use of the information to criminally investigate or prosecute any alcohol or drug abuse patient.[facility] HospitalIn the event this information is protected by the Federal Confidentiality of Alcohol and Drug Abuse Patient Records regulations: The Federal rules restrict any use of the information to criminally investigate or prosecute any alcohol or drug abuse patient.[facility] HospitalIn the event this information is protected by the Federal Confidentiality of Alcohol and Drug Abuse Patient Records regulations: The Federal rules restrict any use of the information to criminally investigate or prosecute any alcohol or drug abuse patient.[facility] HospitalIn the event this information is protected by the Federal Confidentiality of Alcohol and Drug Abuse Patient Records regulations: The Federal rules restrict any use of the information to criminally investigate or prosecute any alcohol or drug abuse patient.[facility] HospitalIn the event this information is protected by the Federal Confidentiality of Alcohol and Drug Abuse Patient Records regulations: The Federal rules restrict any use of the information to criminally investigate or prosecute any alcohol or drug abuse patient.[facility] HospitalIn the event this information is protected by the Federal Confidentiality of Alcohol and Drug Abuse Patient Records regulations: The Federal rules restrict any use of the information to criminally investigate or prosecute any alcohol or drug abuse patient.[facility] HospitalIn the event this information is protected by the Federal Confidentiality of Alcohol and Drug Abuse Patient Records regulations: The Federal rules restrict any use of the information to criminally investigate or prosecute any alcohol or drug abuse patient.[facility] HospitalIn the event this information is protected by the Federal Confidentiality of Alcohol and Drug Abuse Patient Records regulations: The Federal rules restrict any use of the information to criminally investigate or prosecute any alcohol or drug abuse patient.[facility] HospitalIn the event this information is protected by the Federal Confidentiality of Alcohol and Drug Abuse Patient Records regulations: The Federal rules restrict any use of the information to criminally investigate or prosecute any alcohol or drug abuse patient.[facility] HospitalIn the event this information is protected by the Federal Confidentiality of Alcohol and Drug Abuse Patient Records regulations: The Federal rules restrict any use of the information to criminally investigate or prosecute any alcohol or drug abuse patient.[facility] HospitalIn the event this information is protected by the Federal Confidentiality of Alcohol and Drug Abuse Patient Records regulations: The Federal rules restrict any use of the information to criminally investigate or prosecute any alcohol or drug abuse patient.[facility] HospitalIn the event this information is protected by the Federal Confidentiality of Alcohol and Drug Abuse Patient Records regulations: The Federal rules restrict any use of the information to criminally investigate or prosecute any alcohol or drug abuse patient.[facility] HospitalIn the event this information is protected by the Federal Confidentiality of Alcohol and Drug Abuse Patient Records regulations: The Federal rules restrict any use of the information to criminally investigate or prosecute any alcohol or drug abuse patient.[facility] HospitalIn the event this information is protected by the Federal Confidentiality of Alcohol and Drug Abuse Patient Records regulations: The Federal rules restrict any use of the information to criminally investigate or prosecute any alcohol or drug abuse patient.[facility] HospitalIn the event this information is protected by the Federal Confidentiality of Alcohol and Drug Abuse Patient Records regulations: The Federal rules restrict any use of the information to criminally investigate or prosecute any alcohol or drug abuse patient.[facility] HospitalIn the event this information is protected by the Federal Confidentiality of Alcohol and Drug Abuse Patient Records regulations: The Federal rules restrict any use of the information to criminally investigate or prosecute any alcohol or drug abuse patient.[facility] HospitalIn the event this information is protected by the Federal Confidentiality of Alcohol and Drug Abuse Patient Records regulations: The Federal rules restrict any use of the information to criminally investigate or prosecute any alcohol or drug abuse patient.[facility] HospitalIn the event this information is protected by the Federal Confidentiality of Alcohol and Drug Abuse Patient Records regulations: The Federal rules restrict any use of the information to criminally investigate or prosecute any alcohol or drug abuse patient.[facility] HospitalIn the event this information is protected by the Federal Confidentiality of Alcohol and Drug Abuse Patient Records regulations: The Federal rules restrict any use of the information to criminally investigate or prosecute any alcohol or drug abuse patient.[facility] HospitalIn the event this information is protected by the Federal Confidentiality of Alcohol and Drug Abuse Patient Records regulations: The Federal rules restrict any use of the information to criminally investigate or prosecute any alcohol or drug abuse patient.[facility] HospitalIn the event this information is protected by the Federal Confidentiality of Alcohol and Drug Abuse Patient Records regulations: The Federal rules restrict any use of the information to criminally investigate or prosecute any alcohol or drug abuse patient.[facility] HospitalIn the event this information is protected by the Federal Confidentiality of Alcohol and Drug Abuse Patient Records regulations: The Federal rules restrict any use of the information to criminally investigate or prosecute any alcohol or drug abuse patient.[facility] HospitalIn the event this information is protected by the Federal Confidentiality of Alcohol and Drug Abuse Patient Records regulations: The Federal rules restrict any use of the information to criminally investigate or prosecute any alcohol or drug abuse patient.[facility] Reason for Visit (unrecogniz ed section and content) Reason Comments Diarrhea Specialty Diagnoses / Procedures Referred By Ilan t Referred To Contact Diagnoses Anxiety neurosis Mood disorder (HCC) Procedures CONSULT TO PSYCHIATRY OFFICE/OUTPATIENT [facility] 60 MINUTES Qian Somers PA-C [address] [place] [address] [facility] [address] [place] [address] Referral ID Status Reason Start Date Expiration Date Visits Requested Visits Authorized [id number] Authorized PCP Requested Referral Financial Clearance Required - Self Pay Patient Cleared - Qualified [id number] 01/12/2024 04/13/2024 99 99 Reason Comments Covid19 Concern congestion, body ach es, fatigue x1 day Specialty Diagnoses / Procedures Referred By Contac t Referred To Contact [facility] Diagnoses sinus infection - stuffy nose, congestion Procedures sinus infection - stuffy nose, congestion Kodi, Sun, MEDICAL ADMINISTRATOR.CURING PRESS OPERATOR [address] [place] [address] [facility] [address] [place] [address] Referral ID Status Reason Start Date Expiration Date Visits Requested Visits Authorized [id number] Authorized Patient Cleared - Qualified 100% FAS 02/05/2022 05/06/2022 99 99 Reason Comments Recheck Specialty Diagnoses / Procedures Referred By Contac t Referred To Contact Family Practice / FAMILY MEDICINE Diagnoses physical Procedures EST PHYSICAL Qian Somers PA-C [address] [place] [address] Qian Somers PA-C [address] [place] [address] Referral ID Status Reason Start Date Expiration Date Visits Requested Visits Authorized [id number] Authorized Patient Cleared - Qualified 100% FAS 10/30/2021 01/30/2022 99 99 Reason Comments Nasal Congestion stuffy nose, congest ion, sinus pain and x3 days Reason Onset Date Comments Refill Request 03/10/2022 Reason Comments Medication Question Reason Onset Date Comments Refill Request 07/23/2022 Reason Comments Sinus Problem Runny nose, sore thr oat, GARCIA x 3 days Specialty Diagnoses / Procedures Referred By Contac t Referred To Contact [facility] / [facility] Diagnoses sinus pressure Procedures EST SAME DAY Self [facility] [address] [place] [address] Referral ID Status Reason Start Date Expiration Date Visits Requested Visits Authorized [id number] Pending Review Financial Clearance Required - Self Pay 12/21/2022 03/21/2023 1 1 Reason Comments Sore Throat Right ear pain x 2 d ays Reason Comments Diarrhea Pt reported nasal co ngestion, diarrhea x4 days. Reason Onset Date Comments Refill Request 07/14/2023 Reason Comments Outside [id number] Ordered Reason Comments Cough Cough, ST and chest congestion x 2 days Specialty Diagnoses / Procedures [facility] To [facility] Diagnoses light headed, fatigued, off balanced x today Procedures EST SAME DAY Self [facility] [address] [place] [address] Referral ID Status Reason Start Date Expiration Date Visits Requested Visits Authorized [id number] Pending Review Financial Clearance Required - Self Pay 01/08/2024 04/07/2024 1 1 Reason Comments Depression Ingrown Toenail Both great toenails coming off Specialty Diagnoses / Procedures Referred By Contac t Referred To Contact Diagnoses Anxiety neurosis Mood disorder (HCC) Procedures CONSULT TO PSYCHIATRY OFFICE/OUTPATIENT [facility] 60 MINUTES Qian Somers PA-C [address] [place] [address] [facility] [address] [place] [address] Reason Comments Results Reason Comments Physical Reason Comments Appointment Reason Comments Cough Chest congestion, he ad congestion, lightheaded, diarrhea, wheeze x 1 week Reason Comments Abdominal Pain bloating, weakness, fatigue and fever x 2 days Specialty Diagnoses / Procedures Referred By [facility] Referred To Contact Internal Medicine / [facility] Diagnoses Fever, stomach ache, bloating, tiredness X 2 days Procedures EST SAME DAY [facility] [address] [place] [address] Phone: tel: [facility] [address] [place] [address] Phone: tel: Referral ID Status Reason Start Date Expiration Date Visits Requested Visits Authorized [id number] New Request Financial Clearance Required - Self Pay 10/24/2024 01/22/2025 1 1 Reason Comments Patient Update Reason Comments CoPat Start Reason Comments Home Care MD to follow Reason Comments Home Care Confirmation Call Reason Comments Patient Question Reason Comments 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 Reason Comments Hospital F/U Reason Comments Home Care Reason Comments Orders Reason Onset Date Comments Refill Request 11/11/2024 New OPAT orders (Vancomycin and Meropenem - First Doses) Reason Comments Post Op Reason Comments Depression Reason Comments Depression Reason Comments CoPat Management FOR [facility] USE ONLY Reason Comments Diarrhea Nausea Specialty Diagnoses / Procedures Referred By Contac t Referred To Contact [facility] Diagnoses medically necessary appts only Procedures medically necessary appts only [place] [facility] [place] [address] Referral ID Status Reason Start Date Expiration Date V isits Requested Visits Authorized [id number] Closed Patient Cleared - Qualified 100% FAS 10/30/2024 01/28/2025 99 99 Reason Onset Date Comments Results 12/06/2024 Reason Comments Dental Problem L lower tooth infect ion, currently on day 3 of amox from dentist w/o relief Care Teams (unrecognized sec tion and content) Electronic Development Technician Relationship Specialty Start Date End Date Anmol Chen MD [address] [place] [address] PCP - General Family Practice 09/16/13 Electronic Development Technician Relationship Specialty Start Date End Date Anmol Chen MD [address] [place] [address] 27142 PCP - General Family Practice 09/16/13 Electronic Development Technician Relationship Specialty Start Date End Date Anmol Chen MD [address] [place] [address] 00860 PCP - General Family Practice 09/16/13 Electronic Development Technician Relationship Specialty Start Date End Date Anmol Chen MD [address] [place] [address] 30389 PCP - General Family Practice 09/16/13 Electronic Development Technician Relationship Specialty Start Date End Date Anmol Chen MD [address] [place] [address]91 PCP - General Family Medicine 09/16/13 Electronic Development Technician Relationship Specialty Start Date End Date Anmol Chen MD [address] [place] [address] 29851 PCP - General Family Medicine 09/16/13 Electronic Development Technician Relationship Specialty Start Date End Date Anmol Chen MD [address] [place] [address] PCP - General Family Medicine 09/16/13 Electronic Development Technician Relationship Specialty Start Date End Date Anmol Chen MD [address] [place] [address] PCP - General Family Medicine 09/16/13 Electronic Development Technician Relationship Specialty Start Date End Date Anmol Chen MD [address] [place] [address] PCP - General Family Medicine 09/16/13 Electronic Development Technician Relationship Specialty Start Date End Date Anmol Chen MD [address] [place] [address] PCP - General Family Medicine 09/16/13 Electronic Development Technician Relationship Specialty Start Date End Date Anmol Chen MD [address] [place] [address] PCP - General Family Medicine 09/16/13 Electronic Development Technician Relationship Specialty Start Date End Date Anmol Chen MD [address] [place] [address] PCP - General Family Medicine 09/16/13 Electronic Development Technician Relationship Specialty Start Date End Date Anmol Chen MD [address] [place] [address] PCP - General Family Medicine 09/16/13 Electronic Development Technician Relationship Specialty Start Date End Date Anmol Chen MD [address] [place] [address] PCP - General Family Medicine 09/16/13 Electronic Development Technician Relationship Specialty Start Date End Date Anmol Chen MD [address] [place] [address] PCP - General Family Medicine 09/16/13 Electronic Development Technician Relationship Specialty Start Date End Date Anmol Chen MD [address] [place] [address] PCP - General Family Medicine 09/16/13 Electronic Development Technician Relationship Specialty Start Date End Date Anmol Chen MD [address] [place] [address] PCP - General Family Medicine 09/16/13 Electronic Development Technician Relationship Specialty Start Date End Date Anmol Chen MD [address] [place] [address] PCP - General Family Medicine 09/16/13 Electronic Development Technician Relationship Specialty Start Date End Date Anmol Chen MD [address] [place] [address] PCP - General Family Medicine 09/16/13 Elena Isbell APRN.CURING PRESS OPERATOR [address] [place] [address] Poultry C[facility]er Family Medicine 08/06/24 Qian Somers PA-C [address] [place] [address] [facility] 08/06/24 Electronic Development Technician Relationship Specialty Start Date End Date Anmol Chen MD [address] [place] [address] PCP - General Family Medicine 09/16/13 lEena Isbell, MARION.CURING PRESS OPERATOR [address] [place] [address] [facility] Family Medicine 08/06/24 Qian Somers PA-C [address] [place] [address] [facility] Family [facility] 08/06/24 Electronic Development Technician Relationship Specialty Start Date End Date Anmol Chen MD [address] [place] [address] PCP - General Family Medicine 09/16/13 Elena Isbell, MARION.CURING PRESS OPERATOR [address] [place] [address] [facility] Family Medicine 08/06/24 Qian Somers PA-C [address] [place] [address] [facility] Family [facility] 08/06/24 Electronic Development Technician Relationship Specialty Start Date End Date Anmol Chen MD [address] [place] [address] PCP - General Family Medicine 09/16/13 Elena Isbell, MEDICAL ADMINISTRATOR.CURING PRESS OPERATOR [address] [place] [address] [facility] 08/06/24 Qian Somers PA-C [address] [place] [address] [facility] Family [facility] 08/06/24 Electronic Development Technician Relationship Specialty [place] [address] [place] [address] [phone] PCP - General Family Medicine 09/16/13 Elena Isbell, MEDICAL ADMINISTRATOR.CURING PRESS OPERATOR [address] [place] [address] [phone] [facility] Family [facility] 08/06/24 Qian Somers PA-C [address] [place] [address] [phone] [facility] Family [facility] 08/06/24 Guillermo Monique MD [address] [address] Consulting Infectious Diseases 11/02/24 Kandy Mahoney, MEDICAL ADMINISTRATOR.CURING PRESS OPERATOR [address] [address] Referring General Surgery 11/02/24 Anmol Chen MD [address] [place] [address] Home Care Provider Family Medicine 11/02/24 Sean Clemens, RN [address] [place], [place] [phone] Designer/Writer Post Acute Care 11/02/24 Electronic Development Technician Relationship Specialty Start Date End Date Anmol Chen MD [address] [place] [address] [phone] PCP - General Family Medicine 09/16/13 Elena Isbell, MEDICAL ADMINISTRATOR.CURING PRESS OPERATOR [address] [place] [address] [phone] [facility] Family [facility] 08/06/24 Qian Somers PA-C [address] [place] [address] 074631 [facility] Family Medicine 08/06/24 Guillermo Monique MD [address] [place] [address] Consulting Infectious Diseases 11/02/24 Kandy Mahoney, MEDICAL ADMINISTRATOR.CURING PRESS OPERATOR [address] [place] [address] Referring General Surgery 11/02/24 Anmol Chen MD [address] [place] [address] 271021 Home Care Provider Family Medicine 11/02/24 Sean Clemens, RN [address] [place], [place] [phone] Designer/Writer Post Acute Care 11/02/24 Electronic Development Technician Relationship Specialty Start Date End Date nAmol Chen MD [address] [place] [address]307 PCP - General Family Medicine 09/16/13 Elena Isbell, MEDICAL ADMINISTRATOR.CURING PRESS OPERATOR [address] [place] [address] [phone] Poultry [employer] Family [facility] 08/06/24 Qian Somers PA-C [address] [place], [place] [id number] Poultry C[employer]er Family Medicine 08/06/24 Guillermo Monique MD [address] [place] [address] Consulting Infectious Diseases 11/02/24 Kandy Mahoney, MEDICAL ADMINISTRATOR.CURING PRESS OPERATOR [address] [place] [address] Referring General Surgery 11/02/24 Anmol Chen MD [address] [place] [address]24 Home Care Provider Family Medicine 11/02/24 Sean Clemens, RN [address] [place], [place] [phone] Designer/Writer Post Acute Care 11/02/24 Electronic Development Technician Relationship Specialty Start Date End Date Anmol Chen MD [address] [place] [address] 89476 PCP - General Family Medicine 09/16/13 Elena Isbell APRN.CURING PRESS OPERATOR [address] [place] [address] [facility] Family [facility] 08/06/24 Qian Somers PA-C [address] [place] [address] [facility] [facility] Family Medicine 08/06/24 Guillermo Monique MD [address] [place] [address]6727 Consulting Infectious Diseases 11/02/24 Kandy Mahoney, MEDICAL ADMINISTRATOR.CURING PRESS OPERATOR [address] [place] [address] [phone] Referring General Surgery 11/02/24 Anmol Chen MD [address] [place] [address] 9[address]11 Home Care Provider Family Medicine 11/02/24 eSan Clemens, RN [address] [place] [address] Designer/Writer Post Acute Care 11/02/24 Charleen Casey MD Poultry C[employer]er 11/02/24 11/15/24 Electronic Development Technician Relationship Specialty Start Date End Date Anmol Chen MD [address] [place] [address] 60827 PCP - General Family Medicine 09/16/13 Elena Isbell, MEDICAL ADMINISTRATOR.CURING PRESS OPERATOR [address] [place] [address] [phone] Poultry [employer] Family [facility] 08/06/24 Qian Somers PA-C [address] [place] [address] [phone] Poultry C[employer]er Family [facility] 08/06/24 Guillermo Monique MD [address] [address] Consulting Infectious Diseases 11/02/24 Kandy Mahoney, MEDICAL ADMINISTRATOR.CURING PRESS OPERATOR [address] [address] Referring General Surgery 11/02/24 Anmol Chen MD [address] [place] [address] 20318 Home Care Provider Family Medicine 11/02/24 Sean Clemens RN [address] [place], [place] [phone] Designer/Writer Post Acute Care 11/02/24 Charleen Casey MD Poultry Culler 11/02/24 11/15/24 Electronic Development Technician Relationship Specialty Start Date End Date Anmol Chen MD [address] [place] [address] 17827 PCP - General Family Medicine 09/16/13 Elena Isbell APRN.CURING PRESS OPERATOR [address] [place] [address] [facility] Family Medicine 08/06/24 Qian Somers PA-C [address] [place] [address]66 [facility] [facility] Family [facility] 08/06/24 Guillermo Monique MD [address] [place] [address] 25163 Consulting Infectious Diseases 11/02/24 Kandy Mahoney APRN.CURING PRESS OPERATOR [address] [place] [address] 26180 Referring General Surgery 11/02/24 Anmol Chen MD [address] [place] [address] 96941 Home Care Provider Family Medicine 11/02/24 Sean Clemens, RN [address] [place], [place] [phone] Designer/Writer Post Acute Care 11/02/24 ProviderCharleen MD Poultry Culler 11/02/24 11/15/24 Electronic Development Technician Relationship Specialty Start Date End Date Anmol Chen MD [address] [place] [address] 10114 PCP - General Family Medicine 09/16/13 Elena Isbell, MARION.CURING PRESS OPERATOR [address] [place] [address] [phone] [facility] Family [facility] 08/06/24 Qian Somers PA-C [address] [place] [address] 09113 [facility] Family [facility] 08/06/24 Guillermo Monique MD [address] [place] [address] 38995 Consulting Infectious Diseases 11/02/24 Kandy Mahoney, MEDICAL ADMINISTRATOR.CURING PRESS OPERATOR [address] [place] [address] 69457 Referring General Surgery 11/02/24 Anmol Chen MD [address] [place] [address] 13844 Home Care Provider Family Medicine 11/02/24 Sean Clemens, RN [address] [place], [place] [phone] Designer/Writer Post Acute Care 11/02/24 Provider, MD Charleen Poultry Culler 11/02/24 11/15/24 Electronic Development Technician Relationship Specialty Start Date End Date Anmol Chen MD [address] [place] [address] 56202 PCP - General Family Medicine 09/16/13 Elena Isbell, MARION.CURING PRESS OPERATOR [address] [place] [address] 40017 Poultry [employer]er Family Medicine 08/06/24 Qian Somers PA-C [address] [place] [address] 46590 [employer] Family Medicine 08/06/24 Guillermo Monique MD [address] [place] [address] 15811 Consulting Infectious Diseases 11/02/24 Kandy Mahoney, MEDICAL ADMINISTRATOR.CURING PRESS OPERATOR [address] [address] Referring General Surgery 11/02/24 Anmol Chen MD [address] [place] [address] Home Care Provider Family Medicine 11/02/24 Sean Clemens, RN [address] [place], [place] [phone] Designer/Writer Post Acute Care 11/02/24 ProviderCharleen MD Poultry Culler 11/02/24 11/15/24 Electronic Development Technician Relationship Specialty Start Date End Date Anmol Chen MD [address] [place] [address] 56733 PCP - General Family Medicine 09/16/13 Elena Isbell, MEDICAL ADMINISTRATOR.CURING PRESS OPERATOR [facility] [place], [place] 236621 Poultry C[employer]er Family Medicine 08/06/24 Qian Somers PA-C [address] [place], [place] 908961 Poultry C[employer]er Family Medicine 08/06/24 Guillermo Monique MD [address] [address] Consulting Infectious Diseases 11/02/24 Kandy Mahoney, MEDICAL ADMINISTRATOR.CURING PRESS OPERATOR [address] [address] Referring General Surgery 11/02/24 Anmol Chen MD [address] [place] [address] Home Care Provider Family Medicine 11/02/24 Sean Clemens RN [address] [place] [address] Designer/Writer Post Acute Care 11/02/24 Charleen Casey MD Poultry Culler 11/02/24 11/15/24 Electronic Development Technician Relationship Specialty Start Date End Date Anmol Chen MD [facility] [place] [address] PCP - General Family Medicine 09/16/13 Elena Isbell APRN.CURING PRESS OPERATOR [address] [place] [address] Poultry C[employer]er Family Medicine 08/06/24 Qian Somers PA-C [address] [place] [address] Poultry Culler Family Medicine 08/06/24 Guillermo Monique MD [address] [place] [address]47 Consulting Infectious Diseases 11/02/24 Kandy Mahoney APRN.CURING PRESS OPERATOR [address] [place] [address]66 Referring General Surgery 11/02/24 Anmol Chen MD [address] [place] [address] Home Care Provider Family Medicine 11/02/24 Sean Clemens RN [address] [place], [place] [phone] Designer/Writer Post Acute Care 11/02/24 Charleen Casey MD Poultry C[employer]er 11/02/24 11/15/24 Electronic Development Technician Relationship Specialty [place] [address] [place] [address] 33103 PCP - General Family Medicine 09/16/13 Elena Isbell, MARION.CURING PRESS OPERATOR [address] [place] [address] [phone] [facility] 08/06/24 Qian Somers PA-C [address] [place] [address] 237301 [facility] 08/06/24 Guillermo Monique MD [address] [address] Consulting Infectious Diseases 11/02/24 Kandy Mahoney, MEDICAL ADMINISTRATOR.CURING PRESS OPERATOR [address] [address] Referring General Surgery 11/02/24 Anmol Chen MD [address] [place] [address] 83639 Home Care Provider Family Medicine 11/02/24 Sean Clemens, EL [address] [place], [place] [phone] Designer/Writer Post Acute Care 11/02/24 ProviderCharleen MD [facility] 11/02/24 11/15/24 Electronic Development Technician Relationship Specialty Start Date End Date Anmol Chen MD [address] [place] [address] 79394 PCP - General Family Medicine 09/16/13 Elena Isbell, MEDICAL ADMINISTRATOR.CURING PRESS OPERATOR [address] [place] [address] 58699 [facility] 08/06/24 Qian Somers PA-C [address] [place] [address] [facility] 08/06/24 Guillermo Monique MD [address] [place] [address] [phone] Consulting Infectious Diseases 11/02/24 Kandy Mahoney, MEDICAL ADMINISTRATOR.CURING PRESS OPERATOR [address] [place] [address] 73316 Referring General Surgery 11/02/24 Anmol Chen MD [address] [place] [address] 05832 Home Care Provider Family Medicine 11/02/24 Sean Clemens, RN [address] [place], [place] [phone] Designer/Writer Post Acute Care 11/02/24 ProviderCharleen MD [facility] 11/02/24 11/15/24 Electronic Development Technician Relationship Specialty [place] [address] [place] [address] 04886 PCP - General Family Medicine 09/16/13 Elena Isbell APRN.CURING PRESS OPERATOR [address] [place] [address]694 [facility] 08/06/24 Qian Somers PA-C [address] [place] [address] [facility] 08/06/24 Guillermo Monique MD [address] [address] Consulting Infectious Diseases 11/02/24 Kandy Mahoney APRN.CURING PRESS OPERATOR [address] [address] Referring General Surgery 11/02/24 Anmol Chen MD [address] [place] [address] 79419 Home Care Provider Family Medicine 11/02/24 Sean Clemens, EL [address] [place], [place] [phone] Designer/Writer Post Acute Care 11/02/24 Provider, MD Charleen [facility] 11/02/24 11/15/24 Electronic Development Technician Relationship Specialty Start Date End Date Anmol Chen MD [address] [place] [address] 23455 PCP - General Family Medicine 09/16/13 Elena Isbell APRN.CURING PRESS OPERATOR [address] [place] [address] 16402 [facility] 08/06/24 Qian Somers PA-C [address] [place] [address] 11204 [facility] 08/06/24 Guillermo Monique MD [address] [place] [address]809 Consulting Infectious Diseases 11/02/24 Kandy Mahoney, MEDICAL ADMINISTRATOR.CURING PRESS OPERATOR [address] [address] Referring General Surgery 11/02/24 Anmol Chen MD [address] [place] [address] Home Care Provider Family Medicine 11/02/24 Sean Clemens RN [address] [place], [place] [phone] Designer/Writer Post Acute Care 11/02/24 Electronic Development Technician Relationship Specialty Start Date End Date Anmol Chen MD [address] [place] [address] 52222 PCP - General Family Medicine 09/16/13 Elena Isbell APRN.CURING PRESS OPERATOR [address] [place] [address] [phone] [facility] 08/06/24 Qian Somers PA-C [address] [place] [address] 705831 [facility] 08/06/24 Guillermo Monique MD [address] [place] [address]676 Consulting Infectious Diseases 11/02/24 Kandy Mahoney, MEDICAL ADMINISTRATOR.CURING PRESS OPERATOR [address] [place] [address] 74005 Referring General Surgery 11/02/24 Anmol Chen MD [address] [place], [place] [phone] Home Care Provider Family Medicine 11/02/24 Sean Clemens RN [address] [place], [place] [phone] Designer/Writer Post Acute Care 11/02/24 Electronic Development Technician Relationship Specialty [place] [address] [place] [address] [phone] PCP - General Family Medicine 09/16/13 Elena Isbell, MEDICAL ADMINISTRATOR.CURING PRESS OPERATOR [address] [place] [address] [phone] [facility] 08/06/24 Qian Somers PA-C [address] [place] [address] [phone] [facility] 08/06/24 Guillermo Monique MD [address] [address] Consulting Infectious Diseases 11/02/24 Kandy Mahoney, MEDICAL ADMINISTRATOR.CURING PRESS OPERATOR [address] [address] Referring General Surgery 11/02/24 Anmol Chen MD [address] [place] [address] [phone] Home Care Provider Family Medicine 11/02/24 Sean Clemens, RN [address] [place], [place] [phone] Designer/Writer Post Acute Care 11/02/24 Electronic Development Technician Relationship Specialty Start Date End Date Anmol Chen MD [address] [place] [address] 197831 PCP - General Family Medicine 09/16/13 Elena Isbell, MEDICAL ADMINISTRATOR.CURING PRESS OPERATOR [address] [place] [address] 278661 [facility] 08/06/24 Qian Somers PA-C [address] [place] [address] [phone] [facility] 08/06/24 Guillermo Monique MD [address] [place] [address] 74067 Consulting Infectious Diseases 11/02/24 Kandy Mahoney, MEDICAL ADMINISTRATOR.CURING PRESS OPERATOR [address] [place] [address] 11368 Referring General Surgery 11/02/24 Anmol Chen MD [address] [place] [address] [phone] Home Care Provider Family Medicine 11/02/24 Sean Clemens, RN [address] [place], [place] [phone] Designer/Writer Post Acute Care 11/02/24 Electronic Development Technician Relationship Specialty Start Date End Date Anmol Chen MD [address] [place] [address] 53628 PCP - General Family Medicine 09/16/13 Elena Isbell, MEDICAL ADMINISTRATOR.CURING PRESS OPERATOR [address] [place] [address] [phone] [facility] 08/06/24 Qian Somers PA-C [address] [place], [place] [phone] [facility] 08/06/24 Guillermo Monique MD [address] [place] [address] 60140 Consulting Infectious Diseases 11/02/24 Kandy Mahoney, MEDICAL ADMINISTRATOR.CURING PRESS OPERATOR [address] [place] [address] 95569 Referring General Surgery 11/02/24 Anmol Chen MD [address] [place] [address] 22249 Home Care Provider Family Medicine 11/02/24 Sean Clemens, RN [address] [place], [place] [phone] Designer/Writer Post Acute Care 11/02/24 Electronic Development Technician Relationship Specialty Start Date End Date Anmol Chen MD [address] [place] [address] 79524 PCP - General Family Medicine 09/16/13 Elena Isbell APRN.CURING PRESS OPERATOR [address] [place] [address] 38471 [facility] 08/06/24 Qian Somers PA-C [address] [place] [address] 92212 [facility] 08/06/24 Guillermo Monique MD [address] [place] [address] 43926 Consulting Infectious Diseases 11/02/24 Kandy Mahoney, MEDICAL ADMINISTRATOR.CURING PRESS OPERATOR [address] [place] [address] [phone] Referring General Surgery 11/02/24 Anmol Chen MD [address] [place] [address] 62049 Home Care Provider Family Medicine 11/02/24 Sean Clemens, RN [address] [place] [address] Designer/Writer Post Acute Care 11/02/24 Electronic Development Technician Relationship Specialty Start Date End Date Anmol Chen MD [address] [place] [address] [phone] PCP - General Family Medicine 09/16/13 Elena Isbell, MEDICAL ADMINISTRATOR.CURING PRESS OPERATOR [address] [place] [address] 148691 [facility] 08/06/24 Qian Somers PA-C [address] [place] [address] 450451 [facility] 08/06/24 Guillermo Monique MD [address] [place] [address] 11222 Consulting Infectious Diseases 11/02/24 Kadny Mahoney, MEDICAL ADMINISTRATOR.CURING PRESS OPERATOR [address] [place] [address] 90526 Referring General Surgery 11/02/24 Anmol Chen MD [address] [place] [address] 42959 Home Care Provider Family Medicine 11/02/24 Sean Clemens, EL [address] [place], [place] [phone] Designer/Writer Post Acute Care 11/02/24 Charleen Casey MD P[employer] [facility] 11/02/24 11/15/24 Electronic Development Technician Relationship Specialty Start Date End Date Anmol Chen MD [address] [place] [address] 275851 PCP - General Family Medicine 09/16/13 Elena Isbell, MEDICAL ADMINISTRATOR.CURING PRESS OPERATOR [address] [place], [place] 816621 [facility] 08/06/24 Qian Somers PA-C [address] [place] [address] 495661 [facility] 08/06/24 Guillermo Monique MD [address] [phone] Consulting Infectious Diseases 11/02/24 Kandy Mahoney, MEDICAL ADMINISTRATOR.CURING PRESS OPERATOR [address] [place] [address] [phone] Referring General Surgery 11/02/24 Anmol Chen MD [address] [place] [address] [phone] Home Care Provider Family Medicine 11/02/24 Sean Clemens, RN [address] [place] [address] Designer/Writer Post Acute Care 11/02/24 Electronic Development Technician Relationship Specialty Start Date End Date Anmol Chen MD [address] [place] [address] 66483 PCP - General Family Medicine 09/16/13 Elena Isbell, MEDICAL ADMINISTRATOR.CURING PRESS OPERATOR [address] [place], [place] [phone] [facility] 08/06/24 Qian Somers PA-C [address] [place], [place] 393591 [facility] 08/06/24 Guillermo Monique MD [address] [address] Consulting Infectious Diseases 11/02/24 Kandy Mahoney, MEDICAL ADMINISTRATOR.CURING PRESS OPERATOR [address] [place] [address] 21198 Referring General Surgery 11/02/24 Anmol Chen MD [address] [place] [address] 12793 Home Care Provider Family Medicine 11/02/24 Sean Clemens, RN [address] [place], [place] [phone] Designer/Writer Post Acute Care 11/02/24 Electronic Development Technician Relationship Specialty Start Date End Date Anmol Chen MD [address] [place] [address] 16411 PCP - General Family Medicine 09/16/13 Elena Isbell APRN.CURING PRESS OPERATOR [address] [place] [address] 67697 [facility] 08/06/24 Qian Somers PA-C [address] [place] [address] [facility] 08/06/24 Guillermo Monique MD [address] [address] Consulting Infectious Diseases 11/02/24 Kandy Mahoney, MEDICAL ADMINISTRATOR.CURING PRESS OPERATOR [address] [address] Referring General Surgery 11/02/24 Anmol Chen MD [address] [place], [place] 694261 Home Care Provider Family Medicine 11/02/24 Sean Clemens, RN [address] [place], [place] [phone] Designer/Writer Post Acute Care 11/02/24 Electronic Development Technician Relationship Specialty Start Date End Date Anmol Chen MD [address] [place] [address] 185331 PCP - General Family Medicine 09/16/13 Elena Isbell, MEDICAL ADMINISTRATOR.CURING PRESS OPERATOR [address] [place] [address] 516851 [facility] 08/06/24 Qian Somers PA-C [address] [place] [address] [phone] [facility] 08/06/24 Guillermo Monique MD [address] [place] [address] 67758 Consulting Infectious Diseases 11/02/24 Kandy Mahoney, MEDICAL ADMINISTRATOR.CURING PRESS OPERATOR [address] [address] Referring General Surgery 11/02/24 Anmol Chen MD [address] [place], [place] 076121 Home Care Provider Family Medicine 11/02/24 Electronic Development Technician Relationship Specialty Start Date End Date Anmol Chen MD [address] [place] [address] 90201 PCP - General Family Medicine 09/16/13 Elena Isbell, MEDICAL ADMINISTRATOR.CURING PRESS OPERATOR [address] [place] [address] 92468 [facility] 08/06/24 Qian Somers PA-C [address] [place] [address] 00803 [facility] 08/06/24 Guillermo Monique MD [address] [place] [address] [phone] Consulting Infectious Diseases 11/02/24 Kandy Mahoney, MEDICAL ADMINISTRATOR.CURING PRESS OPERATOR [address] [place] [address] 67162 Referring General Surgery 11/02/24 Anmol Chen MD [address] [place] [address] 82641 Home Care Provider Family Medicine 11/02/24 Electronic Development Technician Relationship Specialty Start Date End Date Anmol Chen MD [address] [place] [address] 67548 PCP - General Family Medicine 09/16/13 Elena Isbell, MEDICAL ADMINISTRATOR.CURING PRESS OPERATOR [address] [place] [address] 80100 [facility] 08/06/24 Qian Somers PA-C [address] [place] [address] [facility] 08/06/24 Guillermo Monique MD [address] [address] Consulting Infectious Diseases 11/02/24 Kandy Mahoney APRN.CURING PRESS OPERATOR [address] [address] Referring General Surgery 11/02/24 Anmol Chen MD [address] [place] [address] Home Care Provider Family Medicine 11/02/24 Electronic Development Technician Relationship Specialty Start Date End Date Anmol Chen MD [address] [place] [address] PCP - General Family Medicine 12/05/24 Elena Isbell APRN.CURING PRESS OPERATOR [facility] [place] [address] [facility] 08/06/24 Qian Somers PA-C [facility] [place] [address] [facility] 08/06/24 Guillermo Monique MD [address] [address] Consulting Infectious Diseases 11/02/24 Kandy Mahoney MEDICAL ADMINISTRATOR.CURING PRESS OPERATOR [address] [address] Referring General Surgery 11/02/24 Anmol Chen MD [address] [place] [address] Home Care Provider Family Medicine 11/02/24 Team Status: Active Member Role Status Dates DIVINA Zavaleta Primary Care Provider Active Team Status: Inactive Member Role Status Dates Dr. Anmol Chen MD Primary Care Provider Active Start: December 07, 2024 End: December 07, 2024 Dr. Anmol Chen MD Referring Provider Active Start: December 07, 2024 End: December 07, 2024 Damian COSME, PA Attending Provider Active Start: December 07, 2024 End: December 07, 2024 Team Status: Inactive Member Role Status Dates DIVINA Zavaleta Primary Care Provider Active Start: January 04, 2025 End: January 04, 2025 Dr. Shaheed Cortes DO Emergency Provider Active Start: January 04, 2025 End: January 04, 2025 Electronic Development Technician Relationship Specialty Start Date End Date Anmol Chen MD [address] [place] [address] 24274 PCP - General Family Medicine 12/05/24 Elena Isbell, MEDICAL ADMINISTRATOR.CURING PRESS OPERATOR [facility] [place] [address] [facility] 08/06/24 Qian Somers PA-C [address] [place], [place] 335971 [facility] 08/06/24 Guillermo Monique MD [address] [place] [address] 71114 Consulting Infectious Diseases 11/02/24 Kandy Mahoney APRN.CURING PRESS OPERATOR [address] [place] [address] 73091 Referring General Surgery 11/02/24 Anmol Chen MD [address] [place] [address] 99226 Home Care Provider Family Medicine 11/02/24 Team Status: Inactive Member Role Status Dates Elena Isbell NP-Nayeli Primary Care Provider Active Start: January 04, 2025 End: January 04, 2025 Dr. Shaheed Cortes , DO Attending Provider Active Start: January 04, 2025 End: January 04, 2025 Dr. Shaheed Cortes , DO Emergency Provider Active Start: January 04, 2025 End: January 04, 2025 Team Status: Inactive Member Role Status Dates Elena Isbell NP-Nayeli Primary Care Provider Active Start: January 15, 2025 End: January 15, 2025 Dr. Naomy Torrez , DO Emergency Provider Active S tart: January 15, 2025 End: January 15, 2025 Electronic Development Technician Relationship Specialty Start Date End Date Anmol Chen MD [address] [place] [address] PCP - General Family Medicine 12/05/24 Qian Somers PA-C [address] [place] [address] [facility] 08/06/24 Guillermo Monique MD [address] [address] Consulting Infectious Diseases 11/02/24 Kandy Mahoney APRN.CURING PRESS OPERATOR [address] [address] Referring General Surgery 11/02/24 Anmol Chen MD [address] [place] [address] Home Care Provider Family Medicine 11/02/24 Team Status: Inactive Member Role Status Dates DIVINA Zavaleta Primary Care Provider Active Start: January 15, 2025 End: January 15, 2025 Dr. Naomy Torrez DO Attending Provider Active S tart: January 15, 2025 End: January 15, 2025 Dr. Naomy Torrez , DO Emergency Provider Active S tart: January 15, 2025 End: January 15, 2025 Team Status: Inactive Member Role Status Dates DIVINA Zavaleta Primary Care Provider Active Start: January 25, 2025 End: January 25, 2025 DIVINA Zavaleta Referring Provider Active Start: January 25, 2025 End: January 25, 2025 Damian COSME PA Attending Provider Active Start: January 25, 2025 End: January 25, 2025 Electronic Development Technician Relationship Specialty Start Date End Date Anmol Chen MD [address] [place] [address] PCP - General Family Medicine 12/05/24 Guillermo Monique MD [address] [place] [address] 26276 Consulting Infectious Diseases 11/02/24 Kandy Mahoney, MEDICAL ADMINISTRATOR.CURING PRESS OPERATOR [address] [place] [address] 04253 Referring General Surgery 11/02/24 Anmol Chen MD [address] [place] [address] Home Care Provider Family Medicine 11/02/24 Elena Isbell, MEDICAL ADMINISTRATOR.CURING PRESS OPERATOR [facility] [place], [place] 885321 [facility] 01/30/25 Qian Somers PA-C [address] [place], [place] 944971 [facility] 01/30/25 Electronic Development Technician Relationship Specialty Start Date End Date Anmol Chen MD [address] [place], [place] 762721 PCP - General Family Medicine 09/16/13 12/04/24 Anmol Chen MD [address] [place], [place] 895251 PCP - General Family Medicine 12/05/24 Elena Isbell, MARION.CURING PRESS OPERATOR [address] [place] [address] 318221 [facility] 08/06/24 01/15/25 Qian Somers PA-C [address] [place] [address] [phone] [facility] 08/06/24 01/29/25 Guillermo Monique MD [address] [address] Consulting Infectious Diseases 11/02/24 Kandy Mahoney APRN.CURING PRESS OPERATOR [address] [address] Referring General Surgery 11/02/24 Anmol Chen MD [address] [place], [place] 056471 Home Care Provider Family Medicine 11/02/24 Sean Clemens, RN [address] [place] [address] Designer/Writer Post Acute Care 11/02/24 11/30/24 Elena Isbell, MEDICAL ADMINISTRATOR.CURING PRESS OPERATOR [facility] [place], [place] [phone] [facility] 01/30/25 Qian Somers PA-C [address] [place] [address] [facility] 01/30/25 Electronic Development Technician Relationship Specialty Start Date End Date Anmol Chen MD [address] [place] [address] PCP - General Family Medicine 12/05/24 Qian Somers PA-C [address] [place] [address] [facility] 08/06/24 01/29/25 Guillermo Monique MD [address] [address] Consulting Infectious Diseases 11/02/24 Kandy Mahoney MEDICAL ADMINISTRATOR.CURING PRESS OPERATOR [address] [address] Referring General Surgery 11/02/24 Anmol Chen MD [address] [place] [address] Home Care Provider Family Medicine 11/02/24 Elena Isbell APRN.CURING PRESS OPERATOR [address] [place] [address] [facility] 01/30/25 Qian Somers PA-C [address] [place] [address] [facility] 01/30/25 Electronic Development Technician Relationship Specialty Start Date End Date Anmol Chen MD [address] [place] [address] PCP - General Family Medicine 12/05/24 Guillermo Monique MD [address] [address] Consulting Infectious Diseases 11/02/24 Kandy Mahoney, MEDICAL ADMINISTRATOR.CURING PRESS OPERATOR [facility] [address] [address] Referring General Surgery 11/02/24 Anmol Chen MD [address] [place] [address] 67960 Home Care Provider Family Medicine 11/02/24 Elena Isbell APRN.CURING PRESS OPERATOR [facility] [place] [address] [facility] 01/30/25 Qian Somers PA-C [address] [place] [address] 55559 [facility] 01/30/25 Electronic Development Technician Relationship Specialty Start Date End Date Anmol Chen MD [address] [place] [address] PCP - General Family Medicine 12/05/24 Guillermo Monique MD [address] [address] Consulting Infectious Diseases 11/02/24 Kandy Mahoney, MEDICAL ADMINISTRATOR.CURING PRESS OPERATOR [address] [address] Referring General Surgery 11/02/24 Anmol Chen MD [address] [place] [address] Home Care Provider Family Medicine 11/02/24 Elena Isbell, MARION.CURING PRESS OPERATOR [address] [place] [address] [facility] 01/30/25 Qian Somers PA-C [address] [place] [address] [facility] 01/30/25 Electronic Development Technician Relationship Specialty Start Date End Date Anmol Chen MD [address] [place] [address] PCP - General Family Medicine 12/05/24 Guillermo Monique MD [address] [address] Consulting Infectious Diseases 11/02/24 Kandy Mahoney MEDICAL ADMINISTRATOR.CURING PRESS OPERATOR [address] [address] Referring General Surgery 11/02/24 Anmol Chen MD [address] [place] [address] Home Care Provider Family Medicine 11/02/24 Elena Isbell, MEDICAL ADMINISTRATOR.CURING PRESS OPERATOR [facility] [place] [address] [facility] 01/30/25 Qian Somers PA-C [address] [place], [place] 885731 [facility] 01/30/25 Team Status: Active Member Role/Relationship Status Dates Elena Isbell NP-C Primary Care Provider Active Team Status: Inactive Member Role/Relationship Status Dates Dr. Anmol Chen MD Primary Care Provider Active Start: December 07, 2024 End: December 07, 2024 Dr. Anmol Cehn MD Referring Provider Active Start: December 07, 2024 End: December 07, 2024 Damian COSME, PA Attending Provider Active Start: December 07, 2024 End: December 07, 2024 Team Status: Inactive Member Role/Relationship Status Dates Elena Isbell CAGE MANAGER-C Primary Care Provider Active Start: January 04, 2025 End: January 04, 2025 Dr. Shaheed Cortes , Attending Provider Active Start: January 04, 2025 End: January 04, 2025 Dr. Shaheed Cortes , DO Emergency Provider Active Start: January 04, 2025 End: January 04, 2025 Team Status: Inactive Member Role/Relationship Status Dates Elena Isbell NP-C Primary Care Provider Active Start: January 15, 2025 End: January 15, 2025 Dr. Naomy Torrez , Attending Provider Active S tart: January 15, 2025 End: January 15, 2025 Dr. Naomy Torrez , Emergency Provider Active S tart: January 15, 2025 End: January 15, 2025 Team Status: Inactive Member Role/Relationship Status Dates Elena Isbell CAGE MANAGER-C Primary Care Provider Active Start: January 25, 2025 End: January 25, 2025 HERNAN ZavaletaC Referring Provider Active Start: January 25, 2025 End: January 25, 2025 Damian Quinteros PA, PA Attending Provider Active Start: January 25, 2025 End: January 25, 2025 Team Status: Inactive Member Role/Relationship Status Dates Elena Isbell CAGE MANAGER-C Primary Care Provider Active Start: March 21, 2025 End: March 21, 2025 Dr. Bruce Ramos , Emergency Provider Active Start: March 21, 2025 End: March 21, 2025 Goals (unrecognized section and content) Goals may be documented in a n alternate sectionGoals may be documented in an alternate sectionGoals may be documented in an alternate sectionGoals may be documented in an alternate section FOR RECORDS PERTAINING TO PATIENTS WHO ARE OR HAVE BEEN ENROLLED IN A CHEMICAL DEPENDENCY/SUBSTANCEABUSE PROGRAM, SOME INFORMATION MAY BE OMITTED. This clinical summary was aggregated from multiple sources. Caution should be exercised in using it in the provision of clinical care. This summary normalizes information from multiple sources, and as a consequence, information in this document may materially change the coding, format and clinical context of patient data. In addition, data may be omitted in some cases. CLINICAL DECISIONS SHOULD BE BASED ON THE PRIMARY CLINICAL RECORDS. [facility] [email or web address] [facility]. provides no warranty or guarantee of the accuracy or completeness of information in this document.
== END 2025-03-21 04:15 | disposition home or self-care (01) ==
PROVIDERS: Emergency Provider Emergency Medicine; PCP Nurse Practitioner Family; Visit Provider Emergency Medicine
DX: K08.89 Other specified disorders of teeth and supporting structures (principal); F17.210 Nicotine dependence, cigarettes, uncomplicated
CPT/HCPCS: 99282

== ENCOUNTER 2025-03-28 12:09 | Emergency (ER) | payer MEDICAID, SELFPAY ==
[2025-03-28 12:09] VITALS: BP 135/72; PULSE 109; RESP 18; TEMP 36.6; O2SAT 98; BMI 25.9
[2025-03-28 12:10] VITALS: BP 113/68; PULSE 98; RESP 17; TEMP 36.8; O2SAT 99
--- NOTE | 2025-03-28 12:22 | EDS_ITS ---
HPI History of Present Illness Chief Complaint: Bite Detail of Chief Complaint: Dog bite Informant: patient Narrative Narrative: Patient presents to the emergency department with dog bite to the left hand that occurred prior to arrival to emergency department. Patient states that she got a dog a week ago. The dog is immunized. Today she was petting the dog when it bit her on the left hand. This is a beagle. Unsure of last tetanus shot. [facility] Medical History Anxiety Home Medications ?Medication ?Instructions ?Recorded ?Last Taken ?Type duloxetine 20 mg capsule,delayed 20 mg PO DAILY 01/15/25 History release (Cymbalta) Held on 03/28/25. Instructions: Pt is ill clindamycin HCl 300 mg capsule 300 mg PO TID 5 days #1 5 caps 03/21/25 Unknown Rx (Cleocin HCl) amoxicillin 875 mg-potassium 1 tab PO BID #14 tabs Unknown Rx clavulanate 125 mg tablet Allergy/AdvReac Type Severity Reaction Status Date / Time No Known Allergies Allergy Verified 03/28/25 12:10 Surgical History History of dental surgery Hx of appendectomy Social History Smoking Status: Current every day smoker tobacco type: cigarettes ROS ROS ED Review of Systems ROS Unobtainable: other Constitutional Constitutional ED: Reports lethargy; Denies chills, fever(s), sweats or weight loss Eyes Eyes: Denies blurry vision, change in vision or diplopia ENT ENT ED: Denies rhinorrhea or sore throat Cardiovascular Cardiovascular: Denies chest pain, orthopnea or racing heartbeat Respiratory/Chest Respiratory/Chest: Denies cough, dyspnea, dyspnea on exertion, orthopnea or sputum Gastrointestinal Gastrointestinal: Denies abdominal pain, diarrhea, nausea or vomiting Genitourinary Genitourinary ED: Denies dysuria, hematuria or urinary frequency Musculoskeletal Musculoskeletal: Reports other Details: Dog bite to left hand ; Denies arthralgias, back pain, myalgias or neck pain Integumentary Denies abscess, Abrasions or rash Neurologic Neurologic: Denies headache(s) or weakness Psychiatric Psychiatric: Denies anxiety, depression or suicidal thoughts Endocrine Endocrinology: Denies polydipsia, polyphagia or polyuria Hematologic/Lymphatic Hematologic/Lymphatic: Denies easy bleeding, easy bruising or lymphadenopathy Allergic/Immunologic Allergic/Immunologic ED: Denies mouth swelling, tongue swelling or urticaria EXAM Physical Exam Const Vital Signs: 03/28/25 12:09 Temperature 98 F Temperature Source Oral Pulse Rate 109 H Respiratory Rate 18 Blood Pressure 135/72 H Blood Pressure Mean 93 Pulse Ox 98 Oxygen Delivery Method Room Air Positive well nourished and well developed General Appearance ED: well developed and NAD HEENT Reports TM's clear and moist mucous membranes normocephalic and atraumatic; Negative for trauma or tenderness Tympanic Membrane ED: Yes TM's clear Eyes PERRL and EOMs intact bilaterally General Eye ED: Negative for pale conjunctiva or scleral icterus Neck no lymphadenopathy, supple and no JVD General: Negative for tenderness Chest Wall inspection of chest normal and palpation of chest normal Chest: Negative for tenderness Resp normal respiratory effort and clear to auscultation bilaterally Effort and Inspection: Negative for respiratory distress or pain with movement Auscultation: Negative for rhonchi, wheezes or diminished lung sounds Cardio regular rate, regular rhythm, S1 normal heart sound, S2 normal heart sound and no murmurs Peripheral Pulses: pulses 2+ throughout GI normal to inspection, nondistended, normoactive bowel sounds, soft to palpation, non-tender, non-distended and no masses Back/Spine no CVA tenderness and no thoracic nor lumbar tenderness Extremity Extremity Narrative: Left hand-patient has a 3.5 cm linear laceration over the dorsum of the proximal left hand. No bony tenderness on exam. No evidence of tendon injury. She has normal flexion extension of all digits. General Extremety ED: Negative for edema General Extremity: Negative for edema Neuro oriented x3, CN's II-XII intact bilaterally, no sensory deficits noted and gait normal Sensorium / Orientation: awake, alert, oriented to person, oriented to place and oriented to time Motor Exam: strength 5/5 throughout and strength abnormal Psych mental status grossly normal Skin no rashes or lesions noted and no wounds PROC Procedures Lacerations Left hand laceration: Length: 1.38 in Depth: Sub Q Shape: Linear Prep: Sterile Conditions and Shure-Clens Laceration repair: Irrigated, Lidocaine and Local Irrigated (ml): 50 Number of Sutures/Leida: 5 Suture Information: Ethilon, Simple and 5-0 Comment: Patient had 5 loosely placed sutures to approximate the wound edges as the wound was gaping. MDM MDM MDM Narrative Medical decision making narrative: Patient with a laceration to the dorsum of the hand. Will require suture repair to loosely approximate given that it is gaping. Will start on Augmentin. Will give tetanus booster. Please see procedure note for suture repair. Patient advised to have sutures removed in 10 days by her primary care physician. Patient to return if increasing pain, redness, swelling, purulent drainage, or condition worsen anyway. Discharge Plan Triage Chief Complaint: Bite ED Provider: Naomy Torrez Dx/Rx/DC Orders Clinical Impression: Dog bite, Hand laceration Instructions: ED Dog Bite, ED Laceration Extremity Prescriptions: New amoxicillin-pot clavulanate 875-125 mg tablet 1 tab PO BID Qty: 14 0RF No Action duloxetine [Cymbalta] 20 mg capsule,delayed release(DR/EC) 20 mg PO DAILY clindamycin HCl [Cleocin HCl] 300 mg capsule 300 mg PO TID 5 Days Qty: 15 0RF Primary Care Provider: Teresa Brown Referrals: Teresa Brown, REPORT PROGRAMMER-C [Primary Care Provider] - 10 Day for suture removal Print Language: [place] Disposition Disposition: Home, Self Care
[2025-03-28] MEDS: Lidocaine 1% (20 ml mdv) 20 ML Vial 8 ML INFILT (12:54)
[2025-03-28 13:05] VITALS: BP 114/77; PULSE 91; RESP 16; TEMP 36.7; O2SAT 98
== END 2025-03-28 13:12 | disposition home or self-care (01) ==
PROVIDERS: Emergency Provider Emergency Medicine; PCP Nurse Practitioner Family; Visit Provider Emergency Medicine
DX: S61.452A Open bite of left hand, initial encounter (principal); W54.0XXA Bitten by dog, initial encounter; F41.9 Anxiety disorder, unspecified; Z79.899 Other long term (current) drug therapy; Z90.49 Acquired absence of other specified parts of digestive tract; F17.210 Nicotine dependence, cigarettes, uncomplicated; Z23 Encounter for immunization
CPT/HCPCS: 12002; 90715; 99283